=== PATIENT | female | born 1935 | race Caucasian/White ===

== ENCOUNTER → 2016-06-13 | Outpatient (CLI) | payer OTHER ==
[~2016-06-13] MED LIST: ACET-1256 PO; ACET-24 PO; ADVIN25/60 INH; ADVIN50050 INH; ALBUAER19 INH; ATR10 PO; ATR25 PO; ATRINS INH; CARB25TA PO; CARB25TA12 PO; CEFU500T16 PO; CLC100 PO; CYAN1SUB13 PO; EFFSR75 PO; FLV1 PO; FRRS300 PO; GFNSR600 PO; HYDR-3124 PO; LDXCR60 EXT; LOVA40TA3 PO; LOVA40TA4 PO; LPR25 PO; MELA3TAB PO; METO25TA56 PO; MONT1TAB3 PO; NRN100 PO; PANT40TA PO; PLV75 PO; RANITAB33 PO; ROPI0.5T15 PO; RQP1 PO; RQP25 PO; SENN-65 PO; SENN-91 PO; TRMCR130WC TOP; TYL325X PO; ULT50X PO; VENL37.593 PO; VNTHFA/IN INH; VTMD1000 PO; XPNINS1255 INH; [UNRECOGNIZED DRUG - OTHER] EXT
--- NOTE | 2016-06-14 08:23 | DIAGNOSTIC IMAGING REPORT ---
CT OF THE ABDOMEN AND PELVIS WITHOUT CONTRAST CLINICAL HISTORY: Hematuria. COMPARISON STUDY: CT of the abdomen and pelvis May 17, 2006 and renal ultrasound October 07, 2009 TECHNIQUE: Axial images of the abdomen and pelvis were obtained without IV contrast. Images were reviewed in the axial, sagittal, and coronal planes. FINDINGS: Visualized portions of the lower chest demonstrate mild groundglass opacities within the lingula and left lower lobe. No ureteral or bladder calculi are identified. A punctate calcification is noted within the midpole of the left kidney. There is no hydronephrosis or hydroureter. The sensitivity for detection of urothelial lesions is diminished on this unenhanced exam but none are identified. A 1.8 cm lesion within the midpole of the right kidney is suboptimally assessed on this unenhanced exam but measures water attenuation. This likely reflects a cyst. Unenhanced images of the liver, spleen, adrenal glands and pancreas are normal. There is no evidence for a bowel obstruction. This extensive left colon diverticulosis without evidence of acute diverticulitis. There is no lymphadenopathy. Incidental note is made of moderate dextroscoliosis of the lumbar spine. There are no suspicious osseous lesions. IMPRESSION: 1. No ureteral calculi or hydronephrosis. Punctate left renal calcification could reflect a nonobstructing calculus or vascular calcification. 2. Suspected right renal cyst. No urothelial lesions identified although sensitivity diminished on this unenhanced exam. 3. Mild ground glass opacities within the left lower lobe and lingula which may reflect atelectasis, scarring or infectious process. Electronically signed by: Burton Damon M.D. 06/14/2016 8:22 AM
== END | disposition home or self-care (01) ==
LOC: C.CTS 14:00
PROVIDERS: ATTEND Nurse Practitioner Adult Health
DX: R31.9 Hematuria, unspecified (principal)

== ENCOUNTER 2016-07-17 12:22 | Emergency (ER) | payer OTHER ==
[~2016-07-17] VITALS: Ht 157.5 cm; Wt 59.7 kg
[~2016-07-17 12:22] MED LIST changes: -ACET-1256 PO; -ACET-24 PO; -ADVIN25/60 INH; -ATR10 PO; -ATRINS INH; -CARB25TA12 PO; -CEFU500T16 PO; -CLC100 PO; -CYAN1SUB13 PO; -EFFSR75 PO; -FLV1 PO; -FRRS300 PO; -GFNSR600 PO; -HYDR-3124 PO; -LDXCR60 EXT; -LOVA40TA3 PO; -LPR25 PO; -METO25TA56 PO; -NRN100 PO; -PLV75 PO; -RANITAB33 PO; -ROPI0.5T15 PO; -RQP1 PO; -RQP25 PO; -SENN-65 PO; -SENN-91 PO; -TRMCR130WC TOP; -TYL325X PO; -ULT50X PO; -VNTHFA/IN INH; -VTMD1000 PO; -XPNINS1255 INH; -[UNRECOGNIZED DRUG - OTHER] EXT
[2016-07-17 12:32] VITALS: TEMP 36.8; Ht 157.5 cm; Wt 59.7 kg
--- NOTE | 2016-07-17 13:56 | DIAGNOSTIC IMAGING REPORT ---
PELVIS 1 OR 2 VIEW ROUTINE CLINICAL HISTORY: AP PELVIS, L HIP PAIN COMPARISON: None. DISCUSSION: The bones and joint spaces appear intact. There is no evidence of fracture, dislocation or bony disease. There is no evidence for soft tissue swelling. IMPRESSION: Negative study. Electronically signed by: Terry Chavis M.D. 07/17/2016 1:55 PM Dictated Date/Time: 07/17/2016 1:55 PM
--- NOTE | 2016-07-17 13:57 | DIAGNOSTIC IMAGING REPORT ---
LEFT FEMUR 2 VIEWS ROUTINE CLINICAL HISTORY: L HIP/THIGH PAIN trauma COMPARISON: None. DISCUSSION: The bones and joint spaces appear intact. There is no evidence of fracture, dislocation or bony disease. There is no evidence for soft tissue swelling. IMPRESSION: Negative study. Electronically signed by: Terry Chavis M.D. 07/17/2016 1:56 PM Dictated Date/Time: 07/17/2016 1:55 PM
--- NOTE | 2016-07-17 14:40 | DIAGNOSTIC IMAGING REPORT ---
CT OF THE LEFT HIP CT DOSE: 313.35 mGy.cm HISTORY: Trauma LEFT HIP/PELVIS, INABILITY TO AMBULATE AFTER A FALL TECHNIQUE: Multiaxial CT images of the left hip were performed and reformatted in the sagittal and coronal plane without the use of contrast. COMPARISON: None. FINDINGS: No evidence for fracture by CT criteria. Cortical margins are intact. There is moderate degenerative change of the left hip. Left pubic ring is intact. There are findings of a soft tissue contusion lateral to left hip primarily involving the subcutaneous fat. IMPRESSION: 1. No evidence for fracture. 2. Moderate degenerative change. 3. Soft tissue contusion lateral to the left hip Electronically signed by: Terry Chavis M.D. 07/17/2016 2:39 PM Dictated Date/Time: 07/17/2016 2:37 PM
--- NOTE | 2016-07-17 14:59 | EMERGENCY ROOM VISIT NOTE ---
ED Visit Note First contact with patient: 12:57 Patient was seen by our PA/ASSEM[employer]. I was involved in the patient's care and did evaluate the patient myself. I was involved in the care throughout the ER stay. The patient complains of hip pain, plain films and CT scan are negative for fracture. A contusion was noted. The patient was felt stable for discharge. She will be seeing her doctor in follow-up as an outpatient.
[2016-07-17 15:09] VITALS: BP 102/68; PULSE 94; O2SAT 98
--- NOTE | 2016-07-17 15:12 | EMERGENCY ROOM VISIT NOTE ---
History First contact with patient: 12:30 Chief Complaint: HIP PAIN Stated Complaint: LEFT SIDE PAIN, L HIP PAIN, FALL 5 DAYS AGO History of Present Illness Patient is an 81-year-old white female who presents to emergency department for evaluation of left hip and buttock pain after a fall 4 days ago. Patient states that she got up out of her recliner overnight and tripped over some furniture and fell landing on her left side. She lives with her daughter and son-in-law, but they were unaware of the fall. The patient was able to get up on her own and took care of herself that evening. Family members were made aware of the fall the following day. The patient seemed fine otherwise and was able to ambulate and get dressed and get around the home. Patient's daughter noted bruising on the left hip 2 days ago which has progressively increased. Patient also notes progressively worsening left hip and buttock pain since yesterday evening. She sat in her recliner for most of the day. She used some Tylenol intermittently for discomfort. She has been using a cane to ambulate or has been holding onto the furniture. She denies that she struck her head and that there was any loss of consciousness. She denies any other injuries including shoulder, rib or back pain. She denies any neck pain. While she is laying in the bed, she has no pain. When she tries to ambulate, she rates her discomfort a 10/10. Review of Systems Review of systems as per HPI. All other systems reviewed were negative. 10 systems reviewed. Past Medical/Surgical History Medical Problems: (1) Asthma, Unspecified (2) Depressive Disorder Nec (3) Diab Leticia Wo Compl, Type Ii Or Unspec Type, Not Uncntrld (4) Esophageal Reflux (5) Hyperlipidemia Nec/Nos (6) Hypertension Nos (7) Parkinson disease Electronic medical records are reviewed and summarized as above/below. See Problem List. Family History Gallbladder disease Heart disease Hypertension Kidney disease Kidney stones Social History Smoking Status: Never Smoker Alcohol Use: none Housing Status: lives with family Occupation Status: retired Current/Historical Medications Scheduled Albuterol Hfa (Ventolin Hfa), 2-4 PUFFS INH Q6H Carbidopa-Levodopa (Sinemet Cr 25MG/100MG), 1 TAB PO QID Fluticasone Prop/Salmeterol (Advair Diskus 500-50 Mcg/Dose), 1 PUFF INH BID Hydroxyzine Hcl (Atarax), 25 MG PO TID Lovastatin (Mevacor), 40 MG PO DAILY Montelukast Sodium (Singulair), 10 MG PO DAILY Pantoprazole (Protonix), 40 MG PO BID Venlafaxine Hcl (Venlafaxine Extended Rel), 37.5 MG PO QPM Scheduled PRN Melatonin (Melatonin), 3 MG PO HS PRN for Sleep Allergies Coded Allergies: Diphenhydramine (Verified Allergy, Severe, SWELLING IN THROAT, 07/17/16) Iodine (Verified Allergy, Severe, THROAT SWELLING, 07/17/16) Shellfish (Verified Allergy, Severe, ANAPHYLAXIS AND FULL BODY HIVES, ) Ciprofloxacin (Verified Allergy, Intermediate, HIVES FULL BODY, 07/17/16) Quinine (Verified Allergy, Mild, HIVES, 07/17/16) Latex1 -Allergic Contact Dermititis (Verified Allergy, Unknown, DERMATITIS , 07/17/16) Triprolidine (Verified Allergy, Unknown, HIVES, ASTHMA EXACERBATION, ) Physical Exam Vital Signs Date Time Temp Pulse Resp B/P Pulse Ox O2 Delivery O2 Flow Rate FiO2 07/17/16 15:09 94 16 102/68 98 07/17/16 14:30 100 12 99/79 95 07/17/16 12:32 36.8 106 16 147/81 97 Room Air Physical Exam GENERAL: Patient is a pleasant, elderly 81-year-old white female who is awake and alert and in no acute distress. HEENT: Head - normocephalic and atraumatic. Pupils are equal, round, and reactive to light. Extraocular eye muscles are intact and sclera are anicteric. Ears - bilaterally patent canals with no evidence of hemotympanum. Nose - moist nasal mucosa without evidence of trauma or discharge. Mouth - moist buccal mucosa with no trauma to the teeth or signs of malocclusion. Neck: The neck is supple and there is no pain to palpation over the posterior cervical spine and no obvious step-offs or deformities. There is no JVD or tracheal deviation. Chest: There are no signs of deformities, contusions or abrasions to the chest wall. There is no obvious crepitus or paradoxical chest rise. Heart: Regular rate, and regular rhythm. Lungs: Breath sounds equal and clear to auscultation without wheezes, rales, or rhonchi heard. Abdomen: Soft, completely nontender, nondistended, with good bowel sounds. There is no sign of trauma such as contusions, abrasions or penetrations. There are no palpable pulsatile masses or hepatosplenomegaly. There is no guarding, rigidity, or rebound noted. Pelvis: Stable to rock and compression. Extremities: Examination of the left hip and thigh show marked ecchymosis, and diffuse swelling. She has tenderness to palpation over the left groin, low left greater trochanter and then the left proximal femur. She has discomfort with logroll and extension and internal and external rotation of the hip. No obvious leg length discrepancies. No other obvious trauma, deformities, contusions, or edema. There are easily palpable peripheral pulses. Back: The entire thoracic, lumbar, and sacral spine were palpated. No discomfort over the thoracic spine and lumbar spine. There are no obvious step- offs or deformities noted. There are no obvious signs of trauma such as contusions abrasions penetrations noted to the back. Medical Decision & Procedures ER Provider Diagnostic Interpretation: CT OF THE LEFT HIP CT DOSE: 313.35 mGy.cm HISTORY: Trauma LEFT HIP/PELVIS, INABILITY TO AMBULATE AFTER A FALL TECHNIQUE: Multiaxial CT images of the left hip were performed and reformatted in the sagittal and coronal plane without the use of contrast. COMPARISON: None. FINDINGS: No evidence for fracture by CT criteria. Cortical margins are intact. There is moderate degenerative change of the left hip. Left pubic ring is intact. There are findings of a soft tissue contusion lateral to left hip primarily involving the subcutaneous fat. IMPRESSION: 1. No evidence for fracture. 2. Moderate degenerative change. 3. Soft tissue contusion lateral to the left hip LEFT FEMUR 2 VIEWS ROUTINE CLINICAL HISTORY: L HIP/THIGH PAIN trauma COMPARISON: None. DISCUSSION: The bones and joint spaces appear intact. There is no evidence of fracture, dislocation or bony disease. There is no evidence for soft tissue swelling. IMPRESSION: Negative study. PELVIS 1 OR 2 VIEW ROUTINE CLINICAL HISTORY: AP PELVIS, L HIP PAIN COMPARISON: None. DISCUSSION: The bones and joint spaces appear intact. There is no evidence of fracture, dislocation or bony disease. There is no evidence for soft tissue swelling. IMPRESSION: Negative study. ED Course The patient was seen and evaluated as above. She declined any medication for discomfort. Initially, left femur and AP pelvis x-rays were obtained, which showed arthritic changes, but no evidence for acute fracture. I was concerned given the patient's difficulty with ambulation that she could have a nondisplaced fracture that was not detected by plain radiographs and therefore did a CT of the left lower extremity which did not demonstrate any evidence for acute fracture. Moderate degenerative changes were noted on the left hip, and she does have findings consistent with a soft tissue contusion in the lateral left thigh. The patient was ambulated in the emergency department using a walker and did well. Radiographic findings were discussed with the patient and her family. She was reassured. She was encouraged to continue acetaminophen for discomfort on to use her walker or a cane for ambulation until her pain improves. She could also follow up with Dr. Cross if they do not feel that her symptoms are improving. Differential diagnoses included hip/femur/pelvic fracture, contusion, hip dislocation, among others. Medical Decision See ED Course. Impression Primary Impression: Contusion of left hip and thigh Additional Impression: Fall Departure Information Referrals Artemio Cleary M.D. (PCP) Patient Instructions My [facility] Additional Instructions Acetaminophen(Tylenol) may be used for fever or pain. Use 1000mg every six hours as needed. Avoid using more than 3000mg in a 24 hour period. This medication can be taken if you need to drive, work, or perform activities which may be dangerous when taking narcotic pain medication. Ice compresses for 20 minutes at a time four times daily for 2-3 days. Use your walker/cane as instructed. Rest and elevate your injury. Continue current medications. Return to the ER immediately for any numbness, tingling, severe pain, extreme swelling in the extremity or as needed. Follow up with Dr. Cleary as scheduled, and with Dr. Cross as needed. Problem Qualifiers Primary Impression: Contusion of left hip and thigh Encounter type: initial encounter Qualified Codes: S70.02XA - Contusion of left hip, initial encounter; S70.12XA - Contusion of left thigh, initial encounter Additional Impression: Fall Encounter type: initial encounter Qualified Codes: W19.XXXA - Unspecified fall, initial encounter
[2016-07-17] MEDS ORDERED: VNTHFA/IN INH (15:20)
[2016-07-17] MEDS ORDERED: HYDR-3124 PO (15:20)
[2016-07-31] MEDS ORDERED: LPR25 PO (09:34)
[2016-07-31] MEDS ORDERED: CARB25TA PO (09:34)
[2016-07-31] MEDS ORDERED: XPNINS1255 INH (09:34)
[2016-07-31] MEDS ORDERED: CEFU500T16 PO (09:34)
[2016-07-31] MEDS ORDERED: ATRINS INH (09:34)
[2016-07-31] MEDS ORDERED: FRRS300 PO (09:34)
[2016-07-31] MEDS ORDERED: RQP1 PO (09:34)
[2016-07-31] MEDS ORDERED: TYL325X PO (09:34)
[2016-07-31] MEDS ORDERED: VENL37.593 PO (09:34)
[2016-07-31] MEDS ORDERED: GFNSR600 PO (09:35)
[2016-07-31] MEDS ORDERED: LDXCR60 EXT (09:35)
[2016-07-31] MEDS ORDERED: VTMD1000 PO (09:35)
[2016-07-31] MEDS ORDERED: RQP25 PO (09:35)
[2016-07-31] MEDS ORDERED: [UNRECOGNIZED DRUG - OTHER] EXT (09:35)
[2016-07-31] MEDS ORDERED: CLC100 PO (09:35)
[2016-07-31] MEDS ORDERED: LOVA40TA3 PO (09:51)
[2016-09-11] MEDS ORDERED: PLV75 PO (13:01)
[2016-12-03] MEDS ORDERED: CYAN1SUB13 PO (14:12)
[2016-12-03] MEDS ORDERED: METO25TA56 PO (14:12)
[2016-12-03] MEDS ORDERED: NRN100 PO (14:12)
[2016-12-03] MEDS ORDERED: ULT50X PO (14:12)
[2016-12-03] MEDS ORDERED: FLV1 PO (14:12)
[2016-12-03] MEDS ORDERED: ACET-24 PO (14:12)
== END 2016-07-17 15:27 | disposition home or self-care (01) ==
LOC: EDBD 12:22 → C.EDA 12:23
DX: S70.02XA Contusion of left hip, initial encounter (principal); S70.12XA Contusion of left thigh, initial encounter; W01.0XXA Fall on same level from slipping, tripping and stumbling without subsequent striking against object, initial encounter; I10 Essential (primary) hypertension; E11.9 Type 2 diabetes mellitus without complications; E78.5 Hyperlipidemia, unspecified; G20 Parkinson's disease; K21.9 Gastro-esophageal reflux disease without esophagitis; F32.9 Major depressive disorder, single episode, unspecified; J45.909 Unspecified asthma, uncomplicated; Z79.899 Other long term (current) drug therapy; Z88.2 Allergy status to sulfonamides; Z88.8 Allergy status to other drugs, medicaments and biological substances; Z91.018 Allergy to other foods; Z91.040 Latex allergy status; Z79.82 Long term (current) use of aspirin; Z82.49 Family history of ischemic heart disease and other diseases of the circulatory system; Z84.1 Family history of disorders of kidney and ureter

== ENCOUNTER → 2016-07-20 | Outpatient (CLI) | payer OTHER ==
[~2016-07-20] MED LIST changes: +ACET-1256 PO; +ACET-24 PO; +ADVIN25/60 INH; -ALBUAER19 INH; +ATR10 PO; -ATR25 PO; +ATRINS INH; +CARB25TA12 PO; +CEFU500T16 PO; +CLC100 PO; +CYAN1SUB13 PO; +EFFSR75 PO; +FLV1 PO; +FRRS300 PO; +GFNSR600 PO; +HYDR-3124 PO; +LDXCR60 EXT; +LOVA40TA3 PO; +LPR25 PO; +METO25TA56 PO; +NRN100 PO; +PLV75 PO; +RANITAB33 PO; +ROPI0.5T15 PO; +RQP1 PO; +RQP25 PO; +SENN-65 PO; +SENN-91 PO; +TRMCR130WC TOP; +TYL325X PO; +ULT50X PO; +VNTHFA/IN INH; +VTMD1000 PO; +XPNINS1255 INH; +[UNRECOGNIZED DRUG - OTHER] EXT
[2016-07-20 17:01] LABS: BASO % 0.3 %; BASO ABS # 0.02 K/uL (0-0.2); COMPLETE YES; HEMATOCRIT 34.2 % (37-47); IG% 0.5 %; LYMPH % 21.7 %; LYMPH ABS # 1.37 K/uL (1.2-3.4); MEAN CELL VOLUME 94.5 fL (80-100); MEAN CORPUSCULAR HGB CONC 33.9 g/dl (32-36); MEAN PLATELET VOLUME 9.3 fL (7.4-10.4); MONO % 8.6 %; NEUT % 61.9 %; PLATELET COUNT 317 K/uL (130-400); RED BLOOD COUNT 3.62 M/uL (4.2-5.4)
[2016-07-20 17:07] LABS: BLOOD UREA NITROGEN 19 mg/dl (7-18); BUN/CREATININE RATIO 19.2 (10-20); CALCIUM 8.2 mg/dl (8.5-10.1); CARBON DIOXIDE 31 mmol/L (21-32); CHLORIDE 105 mmol/L (98-107); CREATININE 0.97 mg/dl (0.60-1.20); GLUCOSE 105 mg/dl (70-99); POTASSIUM 4.1 mmol/L (3.5-5.1); SODIUM 142 mmol/L (136-145)
[2016-07-21 05:48] LABS: ESTIMATED AVERAGE GLUCOSE 126 mg/dl; HA1C FLAG Normal (Normal)
== END | disposition home or self-care (01) ==
LOC: C.LABBC 13:42
PROVIDERS: ATTEND Internal Medicine Geriatric Medicine
DX: E11.9 Type 2 diabetes mellitus without complications (principal); D64.9 Anemia, unspecified

== ENCOUNTER 2016-07-26 10:51 | Inpatient (IN) | payer OTHER ==
[~2016-07-26] VITALS: Ht 157.5 cm; Wt 58.7 kg
[~2016-07-26 10:51] MED LIST changes: -ACET-1256 PO; -ACET-24 PO; -ADVIN25/60 INH; -ATR10 PO; -ATRINS INH; -CARB25TA12 PO; -CEFU500T16 PO; -CLC100 PO; -CYAN1SUB13 PO; -EFFSR75 PO; -FLV1 PO; -FRRS300 PO; -GFNSR600 PO; -LDXCR60 EXT; -LOVA40TA3 PO; -LPR25 PO; -METO25TA56 PO; -NRN100 PO; -PLV75 PO; -RANITAB33 PO; -ROPI0.5T15 PO; -RQP1 PO; -RQP25 PO; -SENN-65 PO; -SENN-91 PO; -TRMCR130WC TOP; -TYL325X PO; -ULT50X PO; -VTMD1000 PO; -XPNINS1255 INH; -[UNRECOGNIZED DRUG - OTHER] EXT
[2016-07-26] MEDS ORDERED: SODIUM CHLORIDE 0.9% 1000ML 1,000 ML IV ONE (11:36)
[2016-07-26 11:47] LABS: BASO % 0.1 %; BASO ABS # 0.01 K/uL (0-0.2); COMPLETE YES; EOS % 2.9 %; HEMATOCRIT 38.5 % (37-47); IG% 0.5 %; LYMPH % 16.1 %; LYMPH ABS # 1.22 K/uL (1.2-3.4); MEAN CELL VOLUME 95.3 fL (80-100); MEAN CORPUSCULAR HEMOGLOBIN 32.7 pg (25-34); MEAN CORPUSCULAR HGB CONC 34.3 g/dl (32-36); MEAN PLATELET VOLUME 8.8 fL (7.4-10.4); MONO % 11.4 %; PLATELET COUNT 380 K/uL (130-400); RED BLOOD COUNT 4.04 M/uL (4.2-5.4); WHITE BLOOD COUNT 7.56 K/uL (4.8-10.8)
[2016-07-26 11:55] LABS: ALT/SGPT 6 U/L (12-78); BLOOD UREA NITROGEN 20 mg/dl (7-18); BUN/CREATININE RATIO 19.7 (10-20); CALCIUM 9.1 mg/dl (8.5-10.1); CARBON DIOXIDE 25 mmol/L (21-32); CHLORIDE 101 mmol/L (98-107); GLUCOSE 106 mg/dl (70-99); MAGNESIUM 2.4 mg/dl (1.8-2.4); POTASSIUM 4.2 mmol/L (3.5-5.1); SODIUM 136 mmol/L (136-145)
[2016-07-26 12:00] LABS: VEN BLOOD GAS BASE EXCESS 3.3 mmol/L; VENOUS BLOOD GAS PCO2 39 mmHg (38.0-50.0); VENOUS BLOOD GAS PO2 28 mmHg
[2016-07-26 12:01] LABS: VEN BLD GAS O2 SATURATION < 60.0 %
[2016-07-26 12:02] LABS: PARTIAL THROMBOPLASTIN RATIO 1.2; PROTHROMBIN TIME (PATIENT) 10.7 SECONDS (9.0-12.0)
[2016-07-26 12:03] LABS: ALB/GLOB RATIO 0.8 (0.9-2); ALKALINE PHOSPHATASE 107 U/L (45-117); AST/SGOT 11 U/L (15-37); PHOSPHORUS 3.4 mg/dl (2.5-4.9)
--- NOTE | 2016-07-26 12:20 | DIAGNOSTIC IMAGING REPORT ---
SINGLE VIEW CHEST CLINICAL HISTORY: Sepsis. FINDINGS: An AP, portable, upright chest radiograph is compared to study dated 02/08/2015. The heart is top normal for projection. There is atherosclerotic calcification of the thoracic aorta. The pulmonary vascular is noncongested. Chronic interstitial thickening is similar to previous. No airspace consolidation, large pleural effusion, or pneumothorax is seen. The skeletal structures are osteopenic. Degenerative change and mild scoliosis are noted in the thoracic spine. Advanced arthritic change is seen in the right shoulder. IMPRESSION: No acute cardiopulmonary abnormality. Electronically signed by: Abebe Vyas M.D. 07/26/2016 12:19 PM Dictated Date/Time: 07/26/2016 12:18 PM
--- NOTE | 2016-07-26 12:20 | DIAGNOSTIC IMAGING REPORT ---
LEFT KNEE 1 OR 2 VIEWS ROUTINE CLINICAL HISTORY: fall trauma. Pain. COMPARISON: None. DISCUSSION: Generalized osteopenia. No evidence for fracture. Cortical margins are intact. General change medial joint compartment. There is no evidence for soft tissue swelling. IMPRESSION: Degenerative change. Osteopenia. No acute bony abnormality. Degenerative change medial joint compartment Electronically signed by: Terry Chavis M.D. 07/26/2016 12:19 PM Dictated Date/Time: 07/26/2016 12:18 PM
--- NOTE | 2016-07-26 12:21 | DIAGNOSTIC IMAGING REPORT ---
PELVIS 1 OR 2 VIEW ROUTINE CLINICAL HISTORY: fall trauma. Pain. COMPARISON: 07/17/2016 DISCUSSION: The bones and joint spaces appear intact. There is no evidence of fracture, dislocation or bony disease. Moderate degenerative change. No evidence for acetabular protrusion. IMPRESSION: Moderate degenerative change. No acute bony abnormality. No change from the prior study. Electronically signed by: Terry Chavis M.D. 07/26/2016 12:20 PM Dictated Date/Time: 07/26/2016 12:19 PM
[2016-07-26 12:24] LABS: URINE APPEARANCE CLEAR (CLEAR); URINE BILIRUBIN NEG (NEG); URINE COLOR YELLOW; URINE NITRITE NEG (NEG); URINE PH 6.5 (4.5-7.5); URINE SPECIFIC GRAVITY 1.012 (1.000-1.030); UROBILINOGEN NEG (NEG); ZZURINE CULT IF INDIC CATH NO
[2016-07-26 12:25] LABS: MANUAL MICROSCOPIC REQUIRED? NO; REVIEW REQ? NO
--- NOTE | 2016-07-26 12:55 | DIAGNOSTIC IMAGING REPORT ---
HEAD CT NONCONTRAST CT DOSE: 537.48 mGy.cm HISTORY: Mental status change confusion TECHNIQUE: Multiaxial CT images of the head were performed without the use of intravenous contrast. Comparison: 02/08/2015 Findings: The paranasal sinuses and mastoid air cells are clear. Chronic small vessel change. Ventricular system is midline. No acute intracranial hemorrhage. No midline shift. Impression: Chronic and age-related change. No acute process. Electronically signed by: Terry Chavis M.D. 07/26/2016 12:54 PM Dictated Date/Time: 07/26/2016 12:45 PM
--- NOTE | 2016-07-26 13:46 | EMERGENCY ROOM VISIT NOTE ---
History Report prepared by Diana: Susana Subramanian Under the Supervision of: Dr. Juan Jose Kiser D.O. First contact with patient: 11:23 Chief Complaint: ILLNESS Stated Complaint: MALAISE History of Present Illness The patient is an 81 year old female who presents to the Emergency Room with complaints of a persistent illness that began over a week ago. She currently rates her discomfort as a 3/10 in severity. The patient's family states that two weeks ago the patient fell and had a lot of bruising to her extremities. They state that after the patient complained of left knee pain, the patient was evaluated in the emergency department. The patient's family notes that all of the patient's tests came back negative so she was sent home. They state that the patient was doing well for the past week, but states that Monday the patient took a turn for the worse. The family notes that the patient had been sitting in her chair most of the day Monday, and then when she wanted to get up , she had difficulty standing from her chair. They state that the patient had difficulty ambulating with her walker and states that the patient had pain to her knee. The family notes that the patient had drank fluids that day. They state that later Monday, the patient's ambulation was labored with her walker. The patient's family states that yesterday the patient felt well enough to stay at home alone, but states that the patient did not move much throughout the day , did not keep up on her fluid intake, and did not take her medications. The family notes that the patient seemed dehydrated and hypoglycemic, but state states that the patient's blood glucose was not checked. The patient denies any headache, neck pain, chest pain, abdominal pain, back pain, urinary symptoms , or diarrhea. The patient notes a productive cough, noting that she has brought up yellow sputum, but denies any hemoptysis. The patient's family notes that the patient has been using Tylenol for her knee pain. They state that the patient has a history of Parkinson's disease and asthma. The family also voices concern for the ability to care for the patient at home if she does not improve. Source of History: patient, family Onset: over a week ago Position: other (global) Symptom Intensity: 3/10 Quality: other (illness) Timing: other (persistent) Associated Symptoms: + cough (prodcutive), No abdominal pain, No back pain, No chest pain, No diarrhea, No headache, No neck pain, No urinary symptoms Note: Associated Symptoms: dehydration Review of Systems See HPI for pertinent positives & negatives. A total of 10 systems reviewed and were otherwise negative. Past Medical & Surgical Medical Problems: (1) Asthma, Unspecified (2) Depressive Disorder Nec (3) Diab Leticia Wo Compl, Type Ii Or Unspec Type, Not Uncntrld (4) Esophageal Reflux (5) Hyperlipidemia Nec/Nos (6) Hypertension Nos (7) Parkinson disease (8) Pneumonia Family History Gallbladder disease Heart disease Hypertension Kidney disease Kidney stones Social History Smoking Status: Never Smoker Alcohol Use: none Housing Status: lives with family Occupation Status: retired Current/Historical Medications Scheduled Albuterol Hfa (Ventolin Hfa), 2-4 PUFFS INH Q6H Carbidopa-Levodopa (Sinemet Cr 25MG/100MG), 1 TAB PO QID Fluticasone Prop/Salmeterol (Advair Diskus 500-50 Mcg/Dose), 1 PUFF INH BID Lovastatin (Mevacor), 40 MG PO DAILY Montelukast Sodium (Singulair), 10 MG PO DAILY Pantoprazole (Protonix), 40 MG PO BID Venlafaxine Hcl (Venlafaxine Extended Rel), 37.5 MG PO QPM Scheduled PRN Hydroxyzine Hcl (Atarax), 25 MG PO TID PRN for Anxiety/Agitation Melatonin (Melatonin), 3 MG PO HS PRN for Sleep Allergies Coded Allergies: Diphenhydramine (Verified Allergy, Severe, SWELLING IN THROAT, 07/26/16) Iodine (Verified Allergy, Severe, THROAT SWELLING, 07/26/16) Shellfish (Verified Allergy, Severe, ANAPHYLAXIS AND FULL BODY HIVES, 07/26) Ciprofloxacin (Verified Allergy, Intermediate, HIVES FULL BODY, 07/26/16) Quinine (Verified Allergy, Mild, HIVES, 07/26/16) Latex1 -Allergic Contact Dermititis (Verified Allergy, Unknown, DERMATITIS , 07/26/16) Triprolidine (Verified Allergy, Unknown, HIVES, ASTHMA EXACERBATION, ) Physical Exam Vital Signs Date Time Temp Pulse Resp B/P Pulse Ox O2 Delivery O2 Flow Rate FiO2 07/26/16 15:35 109 22 155/87 100 07/26/16 13:54 97 22 150/87 100 Room Air 07/26/16 12:15 102 20 128/72 100 Room Air 07/26/16 12:15 100 Room Air 07/26/16 11:06 37.0 110 20 128/72 100 Room Air Physical Exam GENERAL: Patient is listless, slow to answer questions, but does follow verbal commands. EYES: The conjunctivae are clear. The pupils are round and reactive. EARS, NOSE, MOUTH AND THROAT: The nose is without any evidence of any deformity. Mucous membranes are dry, tongue is midline NECK: The neck is nontender and supple. RESPIRATORY: Diminished breath sounds throughout. Scattered rhonchi and tachypnea noted. CARDIOVASCULAR: Tachycardic, but regular. No definite murmur noted to auscultation. GASTROINTESTINAL: The abdomen is soft. Bowel sounds are present in all quadrants. Abdomen is nontender MUSCULOSKELETAL/EXTREMITIES: Pain with range of motion of left knee, no deformity or crepitus noted. SKIN: No significant edema noted. Skin turgor was poor. NEUROLOGIC: Patient is oriented to person, place, and situation, but slow to answer questions. Medical Decision & Procedures ER Provider Diagnostic Interpretation: Radiology results as stated below per my review and radiologist interpretation: PELVIS 1 OR 2 VIEW ROUTINE CLINICAL HISTORY: fall trauma. Pain. COMPARISON: 07/17/2016 DISCUSSION: The bones and joint spaces appear intact. There is no evidence of fracture, dislocation or bony disease. Moderate degenerative change. No evidence for acetabular protrusion. IMPRESSION: Moderate degenerative change. No acute bony abnormality. No change from the prior study. Electronically signed by: Terry Chavis M.D. 07/26/2016 12:20 PM Dictated Date/Time: 07/26/2016 12:19 PM LEFT KNEE 1 OR 2 VIEWS ROUTINE CLINICAL HISTORY: fall trauma. Pain. COMPARISON: None. DISCUSSION: Generalized osteopenia. No evidence for fracture. Cortical margins are intact. General change medial joint compartment. There is no evidence for soft tissue swelling. IMPRESSION: Degenerative change. Osteopenia. No acute bony abnormality. Degenerative change medial joint compartment Electronically signed by: Terry Chavis M.D. 07/26/2016 12:19 PM Dictated Date/Time: 07/26/2016 12:18 PM SINGLE VIEW CHEST CLINICAL HISTORY: Sepsis. FINDINGS: An AP, portable, upright chest radiograph is compared to study dated 02/08/2015. The heart is top normal for projection. There is atherosclerotic calcification of the thoracic aorta. The pulmonary vascular is noncongested. Chronic interstitial thickening is similar to previous. No airspace consolidation, large pleural effusion, or pneumothorax is seen. The skeletal structures are osteopenic. Degenerative change and mild scoliosis are noted in the thoracic spine. Advanced arthritic change is seen in the right shoulder. IMPRESSION: No acute cardiopulmonary abnormality. Electronically signed by: Abebe Vyas M.D. 07/26/2016 12:19 PM Dictated Date/Time: 07/26/2016 12:[address] NON[address]AST CT DOSE: 537.48 mGy.cm HISTORY: Mental status change confusion TECHNIQUE: Multiaxial CT images of the head were performed without the use of intravenous contrast. Comparison: 02/08/2015 Findings: The paranasal sinuses and mastoid air cells are clear. Chronic small vessel change. Ventricular system is midline. No acute intracranial hemorrhage. No midline shift. Impression: Chronic and age-related change. No acute process. Electronically signed by: Terry Chavis M.D. 07/26/2016 12:54 PM Dictated Date/Time: 07/26/2016 12:45 PM Laboratory Results 07/26/16 11:10 Red Blood Count 4.04, Mean Corpuscular Volume 95.3, Mean Corpuscular Hemoglobin 32.7, Mean Corpuscular Hemoglobin Concent 34.3, Mean Platelet Volume 8.8, Neutrophils (%) (Auto) 69.0, Lymphocytes (%) (Auto) 16.1, Monocytes (%) (Auto) 11.4, Eosinophils (%) (Auto) 2.9, Basophils (%) (Auto) 0.1, Neutrophils # (Auto ) 5.21, Lymphocytes # (Auto) 1.22, Monocytes # (Auto) 0.86, Eosinophils # (Auto ) 0.22, Basophils # (Auto) 0.01 07/26/16 11:10 Test 07/26/16 11:10 07/26/16 11:36 07/26/16 11:54 07/26/16 12:14 White Blood Count 7.56 K/uL (4.8-10.8) Red Blood Count 4.04 M/uL (4.2-5.4) Hemoglobin 13.2 g/dL (12.0-16.0) Hematocrit 38.5 % (37-47) Mean Corpuscular Volume 95.3 fL (80-100) Mean Corpuscular Hemoglobin 32.7 pg (25-34) Mean Corpuscular Hemoglobin Concent 34.3 g/dl (32-36) Platelet Count 380 K/uL (130-400) Mean Platelet Volume 8.8 fL (7.4-10.4) Neutrophils (%) (Auto) 69.0 % Lymphocytes (%) (Auto) 16.1 % Monocytes (%) (Auto) 11.4 % Eosinophils (%) (Auto) 2.9 % Basophils (%) (Auto) 0.1 % Neutrophils # (Auto) 5.21 K/uL (1.4-6.5) Lymphocytes # (Auto) 1.22 K/uL (1.2-3.4) Monocytes # (Auto) 0.86 K/uL (0.11-0.59) Eosinophils # (Auto) 0.22 K/uL (0-0.5) Basophils # (Auto) 0.01 K/uL (0-0.2) RDW Standard Deviation 49.7 fL (36.4-46.3) RDW Coefficient of Variation 14.3 % (11.5-14.5) Immature Granulocyte % (Auto) 0.5 % Immature Granulocyte # (Auto) 0.04 K/uL (0.00-0.02) Erythrocyte Sedimentation Rate 54 mm/hr (0-21) Prothrombin Time 10.7 SECONDS (9.0-12.0) Prothromb Time International Ratio 1.0 (0.9-1.1) Activated Partial Thromboplast Time 30.2 SECONDS (21.0-31.0) Partial Thromboplastin Ratio 1.2 Anion Gap 10.0 mmol/L (3-11) Est Creatinine Clear Calc Drug Dose 34.9 ml/min Estimated GFR () 61.2 Estimated GFR (Non- 52.8 BUN/Creatinine Ratio 19.7 (10-20) Calcium Level 9.1 mg/dl (8.5-10.1) Phosphorus Level 3.4 mg/dl (2.5-4.9) Magnesium Level 2.4 mg/dl (1.8-2.4) Total Bilirubin 0.5 mg/dl (0.2-1) Aspartate Amino Transf (AST/SGOT) 11 U/L (15-37) Alanine Aminotransferase (ALT/SGPT) 6 U/L (12-78) Alkaline Phosphatase 107 U/L (45-117) Total Creatine Kinase 32 U/L (26-192) Creatine Kinase MB < 0.5 ng/ml (0.5-3.6) Creatine Kinase MB Ratio (0-3.0) Troponin I < 0.015 ng/ml (0-0.045) C-Reactive Protein 12.70 mg/dl (0-0.29) Pro-B-Type Natriuretic Peptide 1123 pg/ml (0-1800) Total Protein 7.4 gm/dl (6.4-8.2) Albumin 3.2 gm/dl (3.4-5.0) Globulin 4.2 gm/dl (2.5-4.0) Albumin/Globulin Ratio 0.8 (0.9-2) Lipase 114 U/L (73-393) Thyroid Stimulating Hormone (TSH) 1.750 uIu/ml (0.300-4.500) Free Thyroxine 1.16 ng/dl (0.80-1.60) Venous Blood pH 7.47 (7.36-7.41) Venous Blood Partial Pressure CO2 39 mmHg (38.0-50.0) Venous Blood Partial Pressure O2 28 mmHg Venous Blood HCO3 27 mmol/L Venous Blood Oxygen Saturation < 60.0 % Venous Blood Base Excess 3.3 mmol/L Bedside Lactic Acid Venous 0.87 mmol/L (0.90-1.70) Urine Color YELLOW Urine Appearance CLEAR (CLEAR) Urine pH 6.5 (4.5-7.5) Urine Specific [place] 1.012 (1.000-1.030) Urine Protein NEG (NEG) Urine Glucose (UA) NEG (NEG) Urine Ketones NEG (NEG) Urine Occult Blood NEG (NEG) Urine Nitrite NEG (NEG) Urine Bilirubin NEG (NEG) Urine Urobilinogen NEG (NEG) Urine Leukocyte Esterase NEG (NEG) Urine WBC (Auto) 1-5 /hpf (0-5) Urine RBC (Auto) 0-4 /hpf (0-4) Urine Hyaline Casts (Auto) 0 /lpf (0-5) Urine Epithelial Cells (Auto) 5-10 /lpf (0-5) Urine Bacteria (Auto) NEG (NEG) Laboratory results per my review. Medications Administered Medications (Trade) Dose Ordered Sig/Joceline Route Start Time Stop Time Status Last Admin Dose Admin Sodium Chloride (Nss 1000ml) 1,000 ml @ 999 mls/hr Q1H1M ONCE IV 07/26/16 11:36 07/26/16 12:36 DC 07/26/16 12:19 999 MLS/HR ECG Indication: other (illness) Rate (beats per minute): 107 Rhythm: sinus tachycardia Findings: PVC (frequent), other (LVH by voltage criteria, poor R wave progression) Comparison ECG Date: 02/08/15 Change: no significant change ED Course 1126: The patient was evaluated in room C7. A complete history and physical examination were performed. 1136: Ordered Sodium Chloride 1000 ml @ 999 mls/hr IV. 1500: I reevaluated the patient and she is resting. I discussed the exam findings with her and her family and I discussed the treatment plan. They all verbalized complete understanding and agreement. The patient will be evaluated for further treatment. 1511: I discussed the patients case [place] [facility] [place] is going to evaluate the patient for further treatment. Medical Decision Differential diagnosis: Etiologies such as metabolic, infection, hypo/hyperglycemia, electrolyte abnormalities, cardiac sources, intracerebral event, toxicologic, neurologic, as well as others were entertained. Nursing notes reviewed. Additional history is obtained from the patient's family members. The patient is an 81-year-old female who presented to the emergency department for an evaluation of inability to ambulate. The patient had a fall recently and is been decompensating ever since. The patient had a fall onto her left side and suffered a significant left leg injury. The patient was awake and alert but appeared to be somewhat disconnected. Her family members were also concerned she may have had a stroke because of her inability to ambulate as well as her mental status has been fluctuating. I discussed the patient's laboratory and radiographic studies with the family members. The patient was treated with IV fluids in the emergency department. Blood cultures were obtained because the family was concerned about the patient's cough which was productive. No definite infiltrate was noted. No definite urinary tract infection was noted. I discussed his case with the emergency department child support case officer. They tried to make a referral for inpatient rehabilitation for this patient but she was unable to be accepted at this time. For this reason and the patient's overall safety I discussed his case with the on-call [facility] hospitalist as well. They have agreed to evaluate the patient in emergency department for further management and disposition. Consults Time Called: [phone] Consulting Physician: ADAM Camara Returned Call: [phone] I discussed the patients case with ADAM Camara. He is going to evaluate the patient for further treatment. Impression Primary Impression: Weakness Additional Impressions: Fall Left knee sprain Inability to ambulate due to left knee TIA (transient ischemic attack) Scribe Attestation The scribe's documentation has been prepared under my direction and personally reviewed by me in its entirety. I confirm that the note above accurately reflects all work, treatment, procedures, and medical decision making performed by me. Departure Information Dispostion Being Evaluated By Hospitalist Referrals Artemio Cleary M.D. (PCP) Problem Qualifiers
[2016-07-26] MEDS ORDERED: ACETAMINOPHEN 325 MG TAB PO PRN (16:30)
[2016-07-26] MEDS ORDERED: BISACODYL 10 MG SUPP PR PRN (16:30)
[2016-07-26] MEDS ORDERED: LORAZEPAM 2 MG/ML 1 ML VIAL IV PRN (16:30)
[2016-07-26] MEDS ORDERED: ONDANSETRON INJ 2 MG/ML 2 ML VIAL IV PRN (16:30)
[2016-07-26] MEDS ORDERED: MoRPHine SULFATE 2 MG/ML CARP IV PRN (16:30)
[2016-07-26] MEDS ORDERED: MAGNESIUM HYDROXIDE SUSP 30 ML UDC PO PRN (16:30)
[2016-07-26] MEDS ORDERED: NON-FORMULARY MEDICATION (Melatonin 3 MG) PO PRN (16:30)
[2016-07-26] MEDS ORDERED: PROMETHAZINE HCL INJ 12.5 MG in SODIUM CHLORIDE 0.9% 50ML 50 ML IV PRN (16:30)
[2016-07-26] MEDS ORDERED: ZOLPIDEM TARTRATE 5 MG TAB PO PRN (16:30)
--- NOTE | 2016-07-26 16:54 | Medical Student: [facility] ---
Med Student History & Physical Date & Time of Service: Jul 26, 2016 at 16:16 Chief Complaint: Malaise Primary Care Physician: Artemio Cleary M.D. History of Present Illness Source: patient, family 81 y/o female who returns today with increasing weakness and decreased mental status that has been getting worse over the past three days. The patient initially presented to the ED two weeks ago after a fall in which she injured her left hip and left knee. The patient was discharged from the ED after no acute fractures were found. Over the next week, the patient gradually improved in terms of her pain and ability to get around in her walker. The patient continues to have left knee pain. About four days ago, the patient began to have a cough with productive yellow sputum. She states that the cough has been steady and has not gotten any better or worse. The patient has a history of asthma and denies any fevers, shortness of breath, chest pain, or palpitations. Two days ago, per the patients daughter, the patient stayed in bed or her chair for most of the day and was hesitant to get up and move around using her walker. This was a change from her previous behavior. Although the patient is legally blind, she was previously confident in getting around the house with her walker. Yesterday, while the patient's daughter was at work, the patient only got out of bed one time all day. She did not drink fluids throughout the day and did not take her medications. Her daughter states that the patient appeared dehydrated when she got home from work. Additionally, the patient was staring out into space and having difficulty finding words, which was all different from her baseline. The patient continued to act weak with decreased mental awareness until she was brought to the ED today. She currently states that she still feels somewhat lightheaded. She also states that she feels "unsure of myself". The patient denies abdominal pain, constipation, diarrhea, nausea, vomiting, recent changes in vision, and extremity weakness. The patient has a history of Parkinson's and states that her symptoms have been stable. She has had no recent medication changes and continues to take Carvidopa /Levidopa. The patient currently feels better after getting some IV fluids. Past Medical/Surgical History Medical Problems: (1) Contusion of left hip and thigh 2. Parkinson's Disease 3. Asthma 4. Depressive disorder 5. Borderline diabetes mellitus 6. reflux 7. High cholesterol Surgical History: 1. Hysterectomy 2. Carpal Tunnel Family History gallbladder, heart disease, HTN, kidney stones Social History Smoking Status: Never Smoker Alcohol Use: none Housing status: lives with family (lives with [facility]) Occupational Status: retired Allergies Coded Allergies: Diphenhydramine (Verified Allergy, Severe, SWELLING IN THROAT, 07/26/16) Iodine (Verified Allergy, Severe, THROAT SWELLING, 07/26/16) Shellfish (Verified Allergy, Severe, ANAPHYLAXIS AND FULL BODY HIVES, 07/26) Ciprofloxacin (Verified Allergy, Intermediate, HIVES FULL BODY, 07/26/16) Quinine (Verified Allergy, Mild, HIVES, 07/26/16) Latex1 -Allergic Contact Dermititis (Verified Allergy, Unknown, DERMATITIS , 07/26/16) Triprolidine (Verified Allergy, Unknown, HIVES, ASTHMA EXACERBATION, ) Medications Albuterol Hfa (Ventolin Hfa), 2-4 PUFFS INH Q6H Carbidopa-Levodopa (Sinemet Cr 25MG/100MG), 1 TAB PO QID Fluticasone Prop/Salmeterol (Advair Diskus 500-50 Mcg/Dose), 1 PUFF INH BID Hydroxyzine Hcl (Atarax), 25 MG PO TID PRN for Anxiety/Agitation Lovastatin (Mevacor), 40 MG PO DAILY Melatonin (Melatonin), 3 MG PO HS PRN for Sleep Montelukast Sodium (Singulair), 10 MG PO DAILY Pantoprazole (Protonix), 40 MG PO BID Venlafaxine Hcl (Venlafaxine Extended Rel), 37.5 MG PO QPM Review of Systems Constitutional: + chills, + weakness, No fever Eyes: No discharge, No redness, No worsening of vision ENT: No hearing loss, No sore throat Respiratory: + cough, + sputum (yellow), No dyspnea at rest, No dyspnea on exertion, No hemoptysis, No shortness of breath, No wheezing Cardiovascular: No chest pain, No edema, No palpitations Abdomen: No constipation, No diarrhea, No nausea, No pain, No vomiting Musculoskeletal: + joint pain (left knee pain) Neurologic: No memory loss, No numbness/tingling, No paralysis, No weakness Psychiatric: No anxiety, No depression symptoms Integumentary: + rash (chronic atopic dermatitis), No color change, No new/ changing skin lesions Physical Exam Vital Signs (24 Hours) Date Time Temp Pulse Resp B/P Pulse Ox O2 Delivery O2 Flow Rate FiO2 07/26/16 15:35 109 22 155/87 100 07/26/16 13:54 97 22 150/87 100 Room Air 07/26/16 12:15 102 20 128/72 100 Room Air 07/26/16 12:15 100 Room Air 07/26/16 11:06 37.0 110 20 128/72 100 Room Air General Appearance: WD/WN, no apparent distress Head: normocephalic, atraumatic Eyes: normal inspection, EOMI ENT: normal ENT inspection, hearing grossly normal Respiratory/Chest: chest non-tender, lungs clear, normal breath sounds, no respiratory distress, no accessory muscle use Cardiovascular: no edema, no gallop, no murmur, normal peripheral pulses, + tachycardia Abdomen/GI: normal bowel sounds, non tender, soft, no organomegaly Back: normal inspection Extremities/Musculoskelatal: normal inspection, no pedal edema 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, no motor/sensory deficits, alert, normal mood/affect, oriented x 3 Skin: + rash (diffuse dry eczematous rash) Diagnostics Laboratory Results Results Past 24 Hours Test 07/26/16 11:10 07/26/16 11:36 07/26/16 11:54 07/26/16 12:14 Range/Units White Blood Count 7.56 4.8-10.8 K/uL Red Blood Count 4.04 4.2-5.4 M/uL Hemoglobin 13.2 12.0-16.0 g/dL Hematocrit 38.5 37-47 % Mean Corpuscular Volume 95.3 80-100 fL Mean Corpuscular Hemoglobin 32.7 25-34 pg Mean Corpuscular Hemoglobin Concent 34.3 32-36 g/dl Platelet Count 380 130-400 K/uL Mean Platelet Volume 8.8 7.4-10.4 fL Neutrophils (%) (Auto) 69.0 % Lymphocytes (%) (Auto) 16.1 % Monocytes (%) (Auto) 11.4 % Eosinophils (%) (Auto) 2.9 % Basophils (%) (Auto) 0.1 % Neutrophils # (Auto) 5.21 1.4-6.5 K/uL Lymphocytes # (Auto) 1.22 1.2-3.4 K/uL Monocytes # (Auto) 0.86 0.11-0.59 K/uL Eosinophils # (Auto) 0.22 0-0.5 K/uL Basophils # (Auto) 0.01 0-0.2 K/uL RDW Standard Deviation 49.7 36.4-46.3 fL RDW Coefficient of Variation 14.3 11.5-14.5 % Immature Granulocyte % (Auto) 0.5 % Immature Granulocyte # (Auto) 0.04 0.00-0.02 K/uL Erythrocyte Sedimentation Rate 54 0-21 mm/hr Prothrombin Time 10.7 9.0-12.0 SECONDS Prothromb Time International Ratio 1.0 0.9-1.1 Activated Partial Thromboplast Time 30.2 21.0-31.0 SECONDS Partial Thromboplastin Ratio 1.2 Sodium Level 136 136-145 mmol/L Potassium Level 4.2 3.5-5.1 mmol/L Chloride Level 101 98-107 mmol/L Carbon Dioxide Level 25 21-32 mmol/L Anion Gap 10.0 3-11 mmol/L Blood Urea Nitrogen 20 7-18 mg/dl Creatinine 1.00 0.60-1.20 mg/dl Est Creatinine Clear Calc Drug Dose 34.9 ml/min Estimated GFR () 61.2 Estimated GFR (Non- 52.8 BUN/Creatinine Ratio 19.7 10-20 Random Glucose 106 70-99 mg/dl Calcium Level 9.1 8.5-10.1 mg/dl Phosphorus Level 3.4 2.5-4.9 mg/dl Magnesium Level 2.4 1.8-2.4 mg/dl Total Bilirubin 0.5 0.2-1 mg/dl Aspartate Amino Transf (AST/SGOT) 11 15-37 U/L Alanine Aminotransferase (ALT/SGPT) 6 12-78 U/L Alkaline Phosphatase 107 45-117 U/L Total Creatine Kinase 32 26-192 U/L Creatine Kinase MB < 0.5 0.5-3.6 ng/ml Creatine Kinase MB Ratio 0-3.0 Troponin I < 0.015 0-0.045 ng/ml C-Reactive Protein 12.70 0-0.29 mg/dl Pro-B-Type Natriuretic Peptide 1123 0-1800 pg/ml Total Protein 7.4 6.4-8.2 gm/dl Albumin 3.2 3.4-5.0 gm/dl Globulin 4.2 2.5-4.0 gm/dl Albumin/Globulin Ratio 0.8 0.9-2 Lipase 114 73-393 U/L Thyroid Stimulating Hormone (TSH) 1.750 0.300-4.500 uIu/ml Free Thyroxine 1.16 0.80-1.60 ng/dl Venous Blood pH 7.47 7.36-7.41 Venous Blood Partial Pressure CO2 39 38.0-50.0 mmHg Venous Blood Partial Pressure O2 28 mmHg Venous Blood HCO3 27 mmol/L Venous Blood Oxygen Saturation < 60.0 % Venous Blood Base Excess 3.3 mmol/L Bedside Lactic Acid Venous 0.87 0.90-1.70 mmol/L Urine Color YELLOW Urine Appearance CLEAR CLEAR Urine pH 6.5 4.5-7.5 Urine Specific [place] 1.012 1.000-1.030 Urine Protein NEG NEG Urine Glucose (UA) NEG NEG Urine Ketones NEG NEG Urine Occult Blood NEG NEG Urine Nitrite NEG NEG Urine Bilirubin NEG NEG Urine Urobilinogen NEG NEG Urine Leukocyte Esterase NEG NEG Urine WBC (Auto) 1-5 0-5 /hpf Urine RBC (Auto) 0-4 0-4 /hpf Urine Hyaline Casts (Auto) 0 0-5 /lpf Urine Epithelial Cells (Auto) 5-10 0-5 /lpf Urine Bacteria (Auto) NEG NEG Microbiology Results 07/26/16 Blood Culture, Received Pending 07/26/16 Blood Culture, Received Pending Diagnostic Radiology CT HEAD NONCONTRAST Impression: Chronic and age-related change. No acute process. CXR IMPRESSION: No acute cardiopulmonary abnormality. LEFT KNEE XRAY IMPRESSION: Degenerative change. Osteopenia. No acute bony abnormality. Degenerative change medial joint compartment PELVIS XRAY IMPRESSION: Moderate degenerative change. No acute bony abnormality. No change from the prior study. EKG Compared to previous ecg, non specific t wave abnormality has now become inverted T waves Impression Assessment and Plan 81y/o female with recent history of cough with productive yellow sputum for past four days and increasing weakness and difficulty ambulating for the past 2- 3 days. The patient does not have a white count, her UA was negative, and her imaging studies returned with no acute abnormalities. However, her CRP and ESR were elevated. Blood cultures are pending. Given the patient's worsening status and no source or diagnosis for this decline, will consider getting a Chest CT to better rule out pulmonary process and a Brain MRI to rule out neurologic process. Worsening functional status/Cough with productive sputum- Patient is having worsening difficulty ambulating and getting around on her own. Additionally, she has had a change in her mental functioning. The family is also concerned with her difficulty ambulating and their ability for her to remain at home. The patient will be admitted and then will work towards potential placement into rehabilitation facility. Chest CT was ordered to look for potential pulmonary process. PCR for influenza A and B was ordered. Administer Ceftriaxone IV Q24 hours, Azithromycin IV daily LIN. Administer Methylprednisolone IV Q8Hr LIN and guaifenesin 600mg PO Q12 LIN. Continue to monitor labs. Blood cultures pending. Parkinson's Disease- Administer Carbidopa/Levodopa 25/100mg 1 tab PO QID LIN. Asthma- Administer Levalbuterol/Ipratropium INH Q6Hr LIN. Depressive Disorder- Administer Venlafaxine 37.5mg PO QPM. Diabetes Mellitus (borderline)- Continue to monitor blood sugar. Reflux- Administer Pantoprazole 40mg PO BID. High cholesterol- Administer Lovastatin 40mg PO daily.
--- NOTE | 2016-07-26 18:00 | DIAGNOSTIC IMAGING REPORT ---
CT OF THE CHEST WITHOUT IV CONTRAST CLINICAL HISTORY: Productive cough. COMPARISON STUDY: Chest radiograph July 26, 2016 and February 08, 2015 TECHNIQUE: Axial images of the chest were obtained without IV contrast. Images were reviewed in the axial, sagittal, and coronal planes. IV contrast was not administered for this examination. FINDINGS: No enlarged axillary, mediastinal or hilar lymph nodes are present. 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 Note is made of a 5 cm water attenuation lesion overlying the anterior right acromioclavicular joint. This is partially imaged on this study. The size of the heart is at the upper limits of normal. There is no pericardial effusion. A small hiatal hernia is present. There is extensive coronary artery calcification. No pneumothorax or pleural effusion is present. The central airways are patent. There are mild groundglass opacities within the lingula and left lower lobe. Bony thorax and upper abdomen are unremarkable on this unenhanced exam IMPRESSION: 1. Mild groundglass opacity within the lingula and left lower lobe. Appearance favors atelectasis. An infectious process could appear similar but is considered less likely. 2. No thoracic lymphadenopathy. 3. 5 cm water attenuation abnormality overlying the anterior aspect of the right acromioclavicular joint. This is partially imaged on this unenhanced exam. This likely reflects a cyst and may be related to arthritis of the right shoulder. This could be correlated with clinical evidence of stability. Electronically signed by: Burton Damon M.D. 07/26/2016 5:58 PM Dictated Date/Time: 07/26/2016 5:50 PM
[2016-07-26 18:42] VITALS: BP 103/68; PULSE 100; TEMP 36.9; O2SAT 96; Ht 157.5 cm; Wt 58.7 kg
[2016-07-26 19:00] LABS: INFLUENZA A PCR Neg for Influ A (NEG); INFLUENZA B PCR Neg for Influ B (NEG)
[2016-07-26] MEDS: CARBIDOPA/LEVODOPA 25/100MG EXT REL TAB PO SCH ×2 (19:27→21:16)
[2016-07-26] MEDS ORDERED: LEVALBUTEROL 1.25MG/0.5ML NEB INH PRN (20:45)
[2016-07-26] MEDS ORDERED: IPRATROPIUM BROMIDE NEB SOLN 0.02% 2.5 ML VIAL INH PRN (20:45)
[2016-07-26] MEDS ORDERED: LEVALBUTEROL/IPRATROPIUM NEB INH SCH (21:00)
[2016-07-26] MEDS: GUAIFENESIN 600 MG TABCR PO SCH (21:14)
[2016-07-26] MEDS: LOVASTATIN 20 MG TAB PO SCH (21:14)
[2016-07-26] MEDS: VENLAFAXINE HCL XR 37.5 MG CAPXR PO SCH (21:15)
[2016-07-26] MEDS: MONTELUKAST SOD 10 MG TAB PO SCH (21:15)
[2016-07-26] MEDS: PANTOprazole SOD 40 MG TAB PO SCH (21:15)
[2016-07-26] MEDS: METHYLPREDNISOLONE IV 30 MG in SYRINGE 0 ML IV SCH (21:18)
[2016-07-26] MEDS: DOCUSATE SODIUM 100 MG CAP PO SCH (21:18)
[2016-07-26] MEDS: CEFTRIAXONE SOD INJ 1 GM in DEXTROSE 5% ADD-VANTAGE 50ML 50 ML IV SCH (21:19)
[2016-07-26 21:26] VITALS: PULSE 105; O2SAT 92
[2016-07-26] MEDS: LEVALBUTEROL 1.25MG/0.5ML NEB INH SCH (21:26)
[2016-07-26] MEDS: IPRATROPIUM BROMIDE NEB SOLN 0.02% 2.5 ML VIAL INH SCH (21:26)
[2016-07-26] MEDS: AZITHROMYCIN IV 500 MG in DEXTROSE 5% 250ML 250 ML IV SCH (22:05)
[2016-07-26 23:25] VITALS: BP 116/74; PULSE 102; TEMP 37.3; O2SAT 97
[2016-07-27] VITALS (9 sets, daily range): BP systolic 135–156; BP diastolic 79–90; PULSE 102–114; TEMP 36.5–36.9; O2SAT 93–98
[2016-07-27] MEDS: IPRATROPIUM BROMIDE NEB SOLN 0.02% 2.5 ML VIAL INH SCH ×4 (01:45→19:58)
[2016-07-27] MEDS: LEVALBUTEROL 1.25MG/0.5ML NEB INH SCH ×4 (01:45→19:58)
--- NOTE | 2016-07-27 03:24 | History and Physical ---
History & Physical Date & Time of Service: Jul 27, 2016 at 03:07 Chief Complaint: Pneumonia; Weakness Primary Care Physician: Artemio Cleary M.D. History of Present Illness Source: patient The patient is an 81-year-old female who presents to the emergency department with symptoms of fatigue, difficulty in relating with walker, pain in her right knee and hip, history of fall approximately 2 weeks ago, with concerns of patient and family about ability stay alone at home. She does note a cough productive of yellow sputum. She does have history of Parkinson's disease which also affects her ambulation. The family is concerned about their ability to take care of her at home if she does not improve. Past Medical/Surgical History Medical Problems: (1) Asthma, Unspecified Status: Chronic (2) Depressive Disorder Nec Status: Chronic (3) Diab Leticia Wo Compl, Type Ii Or Unspec Type, Not Uncntrld Status: Chronic (4) Esophageal Reflux Status: Chronic (5) Hyperlipidemia Nec/Nos Status: Chronic (6) Hypertension Nos Status: Chronic (7) Parkinson disease Status: Chronic Family History Gallbladder disease Heart disease Hypertension Kidney disease Kidney stones Social History Smoking Status: Never Smoker Alcohol Use: none Drug Use: none Marital Status: Housing status: lives with family (lives with [facility]) Occupational Status: retired Multi-Drug Resistant Organisms History of MDRO: No Allergies Coded Allergies: Diphenhydramine (Verified Allergy, Severe, SWELLING IN THROAT, 07/26/16) Iodine (Verified Allergy, Severe, THROAT SWELLING, 07/26/16) Shellfish (Verified Allergy, Severe, ANAPHYLAXIS AND FULL BODY HIVES, 07/26) Ciprofloxacin (Verified Allergy, Intermediate, HIVES FULL BODY, 07/26/16) Quinine (Verified Allergy, Mild, HIVES, 07/26/16) Latex1 -Allergic Contact Dermititis (Verified Allergy, Unknown, DERMATITIS , 07/26/16) Triprolidine (Verified Allergy, Unknown, HIVES, ASTHMA EXACERBATION, ) Home Medications Scheduled Albuterol Hfa (Ventolin Hfa), 2-4 PUFFS INH Q6H Carbidopa-Levodopa (Sinemet Cr 25MG/100MG), 1 TAB PO QID Fluticasone Prop/Salmeterol (Advair Diskus 500-50 Mcg/Dose), 1 PUFF INH BID Lovastatin (Mevacor), 40 MG PO DAILY Montelukast Sodium (Singulair), 10 MG PO DAILY Pantoprazole (Protonix), 40 MG PO BID Venlafaxine Hcl (Venlafaxine Extended Rel), 37.5 MG PO QPM Scheduled PRN Hydroxyzine Hcl (Atarax), 25 MG PO TID PRN for Anxiety/Agitation Melatonin (Melatonin), 3 MG PO HS PRN for Sleep Review of Systems The patient denies chest pain, palpitations, shortness of breath, cough, lower extremity swelling, vision change, hearing change, sore throat, fevers, chills, sweats, weight change, nausea, vomiting, abdominal pain, pelvic pain, blood in urine or stool, dysuria, urinary frequency or urgency, headache, rash, abnormal bruising or bleeding, focal weakness, night sweats, or allergy symptoms. The review of systems is otherwise negative other than for that already noted above, and at least 10 systems have been reviewed. Physical Exam Vital Signs Date Time Temp Pulse Resp B/P Pulse Ox O2 Delivery O2 Flow Rate FiO2 07/27/16 00:00 Room Air 07/26/16 23:25 37.3 102 2 116/74 97 Room Air 07/26/16 21:26 105 16 92 Room Air 07/26/16 21:26 105 16 92 Room Air 07/26/16 20:00 Room Air 07/26/16 18:42 36.9 100 18 103/68 96 Room Air 07/26/16 17:20 109 22 155/87 100 07/26/16 15:35 109 22 155/87 100 07/26/16 13:54 97 22 150/87 100 Room Air 07/26/16 12:15 102 20 128/72 100 Room Air 07/26/16 12:15 100 Room Air 07/26/16 11:06 37.0 110 20 128/72 100 Room Air The patient is awake, well-developed and adequately nourished, alert and oriented 3, normocephalic and atraumatic, lying in bed and in no acute distress. HEENT--PERRL, EOMI, mucous membranes and oropharynx dry. Neck--supple, no JVD or bruits, thyroid normal, trachea midline, no adenopathy. Heart--normal S1 and S2, no extra beats, no murmurs, rubs or gallops. Lungs--wheezes on right side all ramírez, diminished sounds on the left, no respiratory distress, no accessory muscle use. Abdomen--normal bowel sounds and soft, nontender and nondistended, no hernias or masses, no organomegaly. Extremities--no cyanosis, clubbing or edema. There are good distal pulses b/l. Dermatologic--normal skin turgor, normal color, warm and dry, no abnormal lymph nodes, no rash. Neurologic--cranial nerves II through XII grossly intact Psychiatric--normal affect. Diagnostics Laboratory Results Results Past 24 Hours Test 07/26/16 11:10 07/26/16 11:36 07/26/16 11:54 07/26/16 12:14 Range/Units White Blood Count 7.56 4.8-10.8 K/uL Red Blood Count 4.04 4.2-5.4 M/uL Hemoglobin 13.2 12.0-16.0 g/dL Hematocrit 38.5 37-47 % Mean Corpuscular Volume 95.3 80-100 fL Mean Corpuscular Hemoglobin 32.7 25-34 pg Mean Corpuscular Hemoglobin Concent 34.3 32-36 g/dl Platelet Count 380 130-400 K/uL Mean Platelet Volume 8.8 7.4-10.4 fL Neutrophils (%) (Auto) 69.0 % Lymphocytes (%) (Auto) 16.1 % Monocytes (%) (Auto) 11.4 % Eosinophils (%) (Auto) 2.9 % Basophils (%) (Auto) 0.1 % Neutrophils # (Auto) 5.21 1.4-6.5 K/uL Lymphocytes # (Auto) 1.22 1.2-3.4 K/uL Monocytes # (Auto) 0.86 0.11-0.59 K/uL Eosinophils # (Auto) 0.22 0-0.5 K/uL Basophils # (Auto) 0.01 0-0.2 K/uL RDW Standard Deviation 49.7 36.4-46.3 fL RDW Coefficient of Variation 14.3 11.5-14.5 % Immature Granulocyte % (Auto) 0.5 % Immature Granulocyte # (Auto) 0.04 0.00-0.02 K/uL Erythrocyte Sedimentation Rate 54 0-21 mm/hr Prothrombin Time 10.7 9.0-12.0 SECONDS Prothromb Time International Ratio 1.0 0.9-1.1 Activated Partial Thromboplast Time 30.2 21.0-31.0 SECONDS Partial Thromboplastin Ratio 1.2 Sodium Level 136 136-145 mmol/L Potassium Level 4.2 3.5-5.1 mmol/L Chloride Level 101 98-107 mmol/L Carbon Dioxide Level 25 21-32 mmol/L Anion Gap 10.0 3-11 mmol/L Blood Urea Nitrogen 20 7-18 mg/dl Creatinine 1.00 0.60-1.20 mg/dl Est Creatinine Clear Calc Drug Dose 34.9 ml/min Estimated GFR () 61.2 Estimated GFR (Non- 52.8 BUN/Creatinine Ratio 19.7 10-20 Random Glucose 106 70-99 mg/dl Calcium Level 9.1 8.5-10.1 mg/dl Phosphorus Level 3.4 2.5-4.9 mg/dl Magnesium Level 2.4 1.8-2.4 mg/dl Total Bilirubin 0.5 0.2-1 mg/dl Aspartate Amino Transf (AST/SGOT) 11 15-37 U/L Alanine Aminotransferase (ALT/SGPT) 6 12-78 U/L Alkaline Phosphatase 107 45-117 U/L Total Creatine Kinase 32 26-192 U/L Creatine Kinase MB < 0.5 0.5-3.6 ng/ml Creatine Kinase MB Ratio 0-3.0 Troponin I < 0.015 0-0.045 ng/ml C-Reactive Protein 12.70 0-0.29 mg/dl Pro-B-Type Natriuretic Peptide 1123 0-1800 pg/ml Total Protein 7.4 6.4-8.2 gm/dl Albumin 3.2 3.4-5.0 gm/dl Globulin 4.2 2.5-4.0 gm/dl Albumin/Globulin Ratio 0.8 0.9-2 Lipase 114 73-393 U/L Thyroid Stimulating Hormone (TSH) 1.750 0.300-4.500 uIu/ml Free Thyroxine 1.16 0.80-1.60 ng/dl Venous Blood pH 7.47 7.36-7.41 Venous Blood Partial Pressure CO2 39 38.0-50.0 mmHg Venous Blood Partial Pressure O2 28 mmHg Venous Blood HCO3 27 mmol/L Venous Blood Oxygen Saturation < 60.0 % Venous Blood Base Excess 3.3 mmol/L Bedside Lactic Acid Venous 0.87 0.90-1.70 mmol/L Urine Color YELLOW Urine Appearance CLEAR CLEAR Urine pH 6.5 4.5-7.5 Urine Specific [place] 1.012 1.000-1.030 Urine Protein NEG NEG Urine Glucose (UA) NEG NEG Urine Ketones NEG NEG Urine Occult Blood NEG NEG Urine Nitrite NEG NEG Urine Bilirubin NEG NEG Urine Urobilinogen NEG NEG Urine Leukocyte Esterase NEG NEG Urine WBC (Auto) 1-5 0-5 /hpf Urine RBC (Auto) 0-4 0-4 /hpf Urine Hyaline Casts (Auto) 0 0-5 /lpf Urine Epithelial Cells (Auto) 5-10 0-5 /lpf Urine Bacteria (Auto) NEG NEG Test 07/26/16 17:15 Range/Units Influenza Type A (RT-PCR) Neg for Influ A NEG Influenza Type A Antigen Neg for Influ A NEG Influenza Type B Antigen Neg for Influ B NEG Influenza Type B (RT-PCR) Neg for Influ B NEG Microbiology Results 07/26/16 Blood Culture, Received Pending 07/26/16 Blood Culture, Received Pending Diagnostic Radiology Patient Name: EDELMIRA ALMAZAN Unit Number: [id number] Dictated: 07/26/161218 Transcribed: 07/26/161218 MS Printed Date/Time: [~ rep prt dt]/[~ rep prt tm] [~ rep ct labl] - [~ rep ct ivnm] [facility] [place] [address] Dictated: 07/26/161218 Transcribed: 07/26/16 121 MS Printed Date/Time: [~ rep prt dt]/[~ rep prt tm] [~ rep ct labl] - [~ rep ct ivnm] [~ rep ct add3]] PELVIS 1 OR 2 VIEW ROUTINE CLINICAL HISTORY: fall trauma. Pain. COMPARISON: 07/17/2016 DISCUSSION: The bones and joint spaces appear intact. There is no evidence of fracture, dislocation or bony disease. Moderate degenerative change. No evidence for acetabular protrusion. IMPRESSION: Moderate degenerative change. No acute bony abnormality. No change from the prior study. Electronically signed by: Terry Chavis M.D. 07/26/2016 12:20 PM Dictated Date/Time: 07/26/2016 12:19 PM The status of this report is Signed. Draft = Not yet reviewed or approved by Radiologist. Signed = Reviewed and approved by Radiologist. <AttendingPhy></AttendingPhy> <FamilyPhy>Artemio Cleary M.D.</FamilyPhy> < PrimaryPhy>Artemio Cleary M.D.</PrimaryPhy> <UnitNumber>[id number]</UnitNumber > <VisitNumber>[id number]</VisitNumber> <PatientName>EDELMIRA ALMAZAN</PatientName > <DateOfBirth>1935</DateOfBirth> <Location>C[facility]C</Location> <ServiceDate> 07/26/16</ServiceDate> <MNE>ESINDI</MNE> <OrderingPhy>Juan Jose Kiser D.O.</ OrderingPhy> <OrderingPhyMNE>f rep ord dr shultz</OrderingPhyMNE> <DictatingPhyMNE> f rep dict dr shultz</DictatingPhyMNE> <CCListMNE>f rep ct mne</CCListMNE> < AdmittingPhyMNE>f pt admit dr shultz</AdmittingPhyMNE> <AttendingPhyMNE>f pt attend dr shultz</AttendingPhyMNE> <ConsultingPhyMNE>f pt consult dr shultz</ConsultingPhyMNE> <FamilyPhyMNE>f pt fam dr shultz</FamilyPhyMNE> <OtherPhyMNE>f pt other dr shultz</OtherPhyMNE> < PrimaryPhyMNE>f pt prim care dr shultz</PrimaryPhyMNE> <ReferringPhyMNE>f pt referring dr shultz</ReferringPhyMNE> Patient Name: EDELMIRA ALMAZAN Unit Number: [id number] Dictated: 07/26/161217 Transcribed: 07/26/161217 MS Printed Date/Time: [~ rep prt dt]/[~ rep prt tm] [~ rep ct labl] - [~ rep ct ivnm] [facility] Radiology Department [place] [id number] Dictated: 07/26/161217 Transcribed: 07/26/16 1218 MS Printed Date/Time: [~ rep prt dt]/[~ rep prt tm] [~ rep ct labl] - [~ rep ct ivnm] CLINICAL HISTORY: fall trauma. Pain. COMPARISON: None. DISCUSSION: Generalized osteopenia. No evidence for fracture. Cortical margins are intact. General change medial joint compartment. There is no evidence for soft tissue swelling. IMPRESSION: Degenerative change. Osteopenia. No acute bony abnormality. Degenerative change medial joint compartment Electronically signed by: Terry Chavis M.D. 07/26/2016 12:19 PM Dictated Date/Time: 07/26/2016 12:18 PM The status of this report is Signed. Draft = Not yet reviewed or approved by Radiologist. Signed = Reviewed and approved by Radiologist. <AttendingPhy></AttendingPhy> <FamilyPhy>Artemio Cleary M.D.</FamilyPhy> < PrimaryPhy>Artemio Cleary M.D.</PrimaryPhy> <UnitNumber>[id number]</UnitNumber > <VisitNumber>[id number]</VisitNumber> <PatientName>EDELMIRA ALMAZAN</PatientName > <DateOfBirth>1935</DateOfBirth> <Location>C.EDC</Location> <ServiceDate> 07/26/16</ServiceDate> <MNE>ESINDI</MNE> <OrderingPhy>Juan Jose Kiser D.O.</ OrderingPhy> <OrderingPhyMNE>f rep ord dr shultz</OrderingPhyMNE> <DictatingPhyMNE> f rep dict dr shultz</DictatingPhyMNE> <CCListMNE>f rep ct mne</CCListMNE> < AdmittingPhyMNE>f pt admit dr shultz</AdmittingPhyMNE> <AttendingPhyMNE>f pt attend dr shultz</AttendingPhyMNE> <ConsultingPhyMNE>f pt consult dr shultz</ConsultingPhyMNE> <FamilyPhyMNE>f pt fam dr shultz</FamilyPhyMNE> <OtherPhyMNE>f pt other dr shultz</OtherPhyMNE> < PrimaryPhyMNE>f pt prim care dr shultz</PrimaryPhyMNE> <ReferringPhyMNE>f pt referring dr shultz</ReferringPhyMNE> Patient Name: EDELMIRA ALMAZAN Unit Number: [id number] Dictated: 07/26/161217 Transcribed: 07/26/161217 EV Printed Date/Time: [~ rep prt dt]/[~ rep prt tm] [~ rep ct labl] - [~ rep ct ivnm] [facility] [place] [address] Dictated: 07/26/161217 Transcribed: 07/26/161217 EV Printed Date/Time: [~ rep prt dt]/[~ rep prt tm] [~ rep ct labl] - [~ rep ct ivnm] SINGLE VIEW CHEST CLINICAL HISTORY: Sepsis. FINDINGS: An AP, portable, upright chest radiograph is compared to study dated 02/08/2015. The heart is top normal for projection. There is atherosclerotic calcification of the thoracic aorta. The pulmonary vascular is noncongested. Chronic interstitial thickening is similar to previous. No airspace consolidation, large pleural effusion, or pneumothorax is seen. The skeletal structures are osteopenic. Degenerative change and mild scoliosis are noted in the thoracic spine. Advanced arthritic change is seen in the right shoulder. IMPRESSION: No acute cardiopulmonary abnormality. Electronically signed by: Abebe Vyas M.D. 07/26/2016 12:19 PM Dictated Date/Time: 07/26/2016 12:18 PM The status of this report is Signed. Draft = Not yet reviewed or approved by Radiologist. Signed = Reviewed and approved by Radiologist. <AttendingPhy></AttendingPhy> <FamilyPhy>Artemio Cleary M.D.</FamilyPhy> < PrimaryPhy>Artemio Cleary M.D.</PrimaryPhy> <UnitNumber>[id number]</UnitNumber > <VisitNumber>[id number]</VisitNumber> <PatientName>EDELMIRA ALMAZAN</PatientName > <DateOfBirth>1935</DateOfBirth> <Location>C.EDC</Location> <ServiceDate> 07/26/16</ServiceDate> <MNE>ESINDI</MNE> <OrderingPhy>Juan Jose Kiser D.O.</ OrderingPhy> <OrderingPhyMNE>f rep ord dr shultz</OrderingPhyMNE> <DictatingPhyMNE> f rep dict dr shultz</DictatingPhyMNE> <CCListMNE>f rep ct mne</CCListMNE> < AdmittingPhyMNE>f pt admit dr shultz</AdmittingPhyMNE> <AttendingPhyMNE>f pt attend dr shultz</AttendingPhyMNE> <ConsultingPhyMNE>f pt consult dr shultz</ConsultingPhyMNE> <FamilyPhyMNE>f pt fam dr shultz</FamilyPhyMNE> <OtherPhyMNE>f pt other dr shultz</OtherPhyMNE> < PrimaryPhyMNE>f pt prim care dr shultz</PrimaryPhyMNE> <ReferringPhyMNE>f pt referring dr shultz</ReferringPhyMNE> Patient Name: EDELMIRA ALMAZAN Unit Number: [id number] Dictated: 07/26/161244 Transcribed: 07/26/16 1245 MS Printed Date/Time: [~ rep prt dt]/[~ rep prt tm] [~ rep ct labl] - [~ rep ct ivnm] [facility] [place] [address] Dictated: 07/26/161244 Transcribed: 07/26/16 1245 MS Printed Date/Time: [~ rep prt dt]/[~ rep prt tm] [~ rep ct labl] - [~ rep ct ivnm] HEAD CT NONCONTRAST CT DOSE: 537.48 mGy.cm HISTORY: Mental status change confusion TECHNIQUE: Multiaxial CT images of the head were performed without the use of intravenous contrast. Comparison: 02/08/2015 Findings: The paranasal sinuses and mastoid air cells are clear. Chronic small vessel change. Ventricular system is midline. No acute intracranial hemorrhage. No midline shift. Impression: Chronic and age-related change. No acute process. Electronically signed by: Terry Chavis M.D. 07/26/2016 12:54 PM Dictated Date/Time: 07/26/2016 12:45 PM The status of this report is Signed. Draft = Not yet reviewed or approved by Radiologist. Signed = Reviewed and approved by Radiologist. <AttendingPhy></AttendingPhy> <FamilyPhy>Artemio Cleary M.D.</FamilyPhy> < PrimaryPhy>Artemio Cleary M.D.</PrimaryPhy> <UnitNumber>[id number]</UnitNumber > <VisitNumber>[id number]</VisitNumber> <PatientName>EDELMIRA ALMAZAN</PatientName > <DateOfBirth>1935</DateOfBirth> <Location>[facility]</Location> <ServiceDate> 07/26/16</ServiceDate> <MNE>ESINDI</MNE> <OrderingPhy>Juan Jose Kiser D.O.</ OrderingPhy> <OrderingPhyMNE>f rep ord dr shultz</OrderingPhyMNE> <DictatingPhyMNE> f rep dict dr shultz</DictatingPhyMNE> <CCListMNE>f rep ct mne</CCListMNE> < AdmittingPhyMNE>f pt admit dr shultz</AdmittingPhyMNE> <AttendingPhyMNE>f pt attend dr shultz</AttendingPhyMNE> <ConsultingPhyMNE>f pt consult dr shultz</ConsultingPhyMNE> <FamilyPhyMNE>f pt fam dr shultz</FamilyPhyMNE> <OtherPhyMNE>f pt other dr shultz</OtherPhyMNE> < PrimaryPhyMNE>f pt prim care dr shultz</PrimaryPhyMNE> <ReferringPhyMNE>f pt referring dr shultz</ReferringPhyMNE> Patient Name: EDELMIRA ALMAZAN Unit Number: [id number] Dictated: 07/26/161749 Transcribed: 07/26/161749 KAVITA Printed Date/Time: [~ rep prt dt]/[~ rep prt tm] [~ rep ct labl] - [~ rep ct ivnm] [facility] [place] [address] Dictated: 07/26/161749 Transcribed: 07/26/161749 KAVITA Printed Date/Time: [~ rep prt dt]/[~ rep prt tm] [~ rep ct labl] - [~ rep ct ivnm] CT OF THE CHEST WITHOUT IV CONTRAST CLINICAL HISTORY: Productive cough. COMPARISON STUDY: Chest radiograph July 26, 2016 and February 08, 2015 TECHNIQUE: Axial images of the chest were obtained without IV contrast. Images were reviewed in the axial, sagittal, and coronal planes. IV contrast was not administered for this examination. FINDINGS: No enlarged axillary, mediastinal or hilar lymph nodes are present. 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 Note is made of a 5 cm water attenuation lesion overlying the anterior right acromioclavicular joint. This is partially imaged on this study. The size of the heart is at the upper limits of normal. There is no pericardial effusion. A small hiatal hernia is present. There is extensive coronary artery calcification. No pneumothorax or pleural effusion is present. The central airways are patent. There are mild groundglass opacities within the lingula and left lower lobe. Bony thorax and upper abdomen are unremarkable on this unenhanced exam IMPRESSION: 1. Mild groundglass opacity within the lingula and left lower lobe. Appearance favors atelectasis. An infectious process could appear similar but is considered less likely. 2. No thoracic lymphadenopathy. 3. 5 cm water attenuation abnormality overlying the anterior aspect of the right acromioclavicular joint. This is partially imaged on this unenhanced exam. This likely reflects a cyst and may be related to arthritis of the right shoulder. This could be correlated with clinical evidence of stability. Electronically signed by: Burton Damon M.D. 07/26/2016 5:58 PM Dictated Date/Time: 07/26/2016 5:50 PM The status of this report is Signed. Draft = Not yet reviewed or approved by Radiologist. Signed = Reviewed and approved by Radiologist. <AttendingPhy>Augustine Doll M.D.</AttendingPhy> <FamilyPhy>Artemio Cleary M.D.</FamilyPhy> <PrimaryPhy>Artemio Cleary M.D.</PrimaryPhy> <UnitNumber> [id number]</UnitNumber> <VisitNumber>[id number]</VisitNumber> <PatientName> EDELMIRA ALMAZAN</PatientName> <DateOfBirth>1935</DateOfBirth> <Location>C.4E< /Location> <ServiceDate>07/26/16</ServiceDate> <MNE>ESINDI</MNE> <OrderingPhy> Augustine Doll M.D.</OrderingPhy> <OrderingPhyMNE>f rep ord dr shultz</ OrderingPhyMNE> <DictatingPhyMNE>f rep dict dr shultz</DictatingPhyMNE> <CCListMNE> f rep ct [place]</CCListMNE> <AdmittingPhyMNE>f pt admit dr shultz</AdmittingPhyMNE> < AttendingPhyMNE>f pt attend dr shultz</AttendingPhyMNE> <ConsultingPhyMNE>f pt consult dr shultz</ConsultingPhyMNE> <FamilyPhyMNE>f pt fam dr shultz</FamilyPhyMNE> <OtherPhyMNE>f pt other dr shultz</OtherPhyMNE> < PrimaryPhyMNE>f pt prim care dr shultz</PrimaryPhyMNE> <ReferringPhyMNE>f pt referring dr shultz</ReferringPhyMNE> EKG EKG shows sinus tach at 107 with left axis deviation, left ventricular hypertrophy, old inferior infarct, ST-T changes in lateral chest leads. Impression Assessment and Plan The patient with nonspecific complaints with generalized weakness, a fall a few weeks ago, remarks of a cough productive yellow sputum, but no suggestion of chest pain or shortness of breath. She'll be admitted, placed on ceftriaxone 1 g IV daily, azithromycin 500 mg IV daily, Solu-Medrol 30 mg IV every 8 hours, guaifenesin extended release 600 mg by mouth twice a day and Xopenex with Atrovent nebulizer to use every 6 hours while awake and every 2 hours when necessary. Continue montelukast sodium 10 mg by mouth daily. Hold Ventolin HFA and Advair discus. Hypertension/nonspecific EKG changes likely supply demand mismatch--we'll check another set of cardiac enzymes. Parkinson's--continue carbidopa levodopa 25/100, 1 tablet by mouth 4 times a day. Hypercholesterolemia--continue Mevacor 40 mg by mouth daily. GERD--continue pantoprazole 40 mg by mouth twice a day. Depression--continue venlafaxine ER visit and 0.5 g by mouth every afternoon. Advanced Directives Existing Advance Directive: Yes Existing Living Will: Yes Existing Power of Kiln Car Unloader: Yes Resuscitation Status FULL RESUSCITATION VTE Prophylaxis VTE Risk Assessment Done? Y/N: Yes Risk Level: Moderate Given or contraindicated: SCD's
[2016-07-27 04:35] LABS: CKMB/CK RATIO 2.1 (0-3.0)
[2016-07-27] MEDS: METHYLPREDNISOLONE IV 30 MG in SYRINGE 0 ML IV SCH ×3 (05:18→20:04)
[2016-07-27 06:09] LABS: COMPLETE YES; EOS % 0.3 %; HEMATOCRIT 35.8 % (37-47); IG% 0.8 %; LYMPH % 13.6 %; LYMPH ABS # 0.52 K/uL (1.2-3.4); MEAN CORPUSCULAR HEMOGLOBIN 31.8 pg (25-34); MEAN CORPUSCULAR HGB CONC 33.5 g/dl (32-36); MEAN PLATELET VOLUME 8.7 fL (7.4-10.4); MONO % 3.1 %; NEUT % 82.2 %; PLATELET COUNT 353 K/uL (130-400); RED BLOOD COUNT 3.77 M/uL (4.2-5.4); WHITE BLOOD COUNT 3.81 K/uL (4.8-10.8)
[2016-07-27 06:45] LABS: BUN/CREATININE RATIO 21.8 (10-20); CALCIUM 8.8 mg/dl (8.5-10.1); CREATININE 0.91 mg/dl (0.60-1.20); MAGNESIUM 2.3 mg/dl (1.8-2.4); POTASSIUM 4.5 mmol/L (3.5-5.1)
[2016-07-27] MEDS ORDERED: ALBUTEROL HFA 8 GM INHALER INH SCH (08:00)
[2016-07-27] MEDS: DOCUSATE SODIUM 100 MG CAP PO SCH ×2 (08:27→20:03)
[2016-07-27] MEDS: GUAIFENESIN 600 MG TABCR PO SCH ×2 (08:28→20:04)
[2016-07-27] MEDS: CARBIDOPA/LEVODOPA 25/100MG EXT REL TAB PO SCH ×4 (08:28→20:03)
[2016-07-27] MEDS: PANTOprazole SOD 40 MG TAB PO SCH ×2 (08:28→20:03)
[2016-07-27] MEDS: FLUTICASONE/SALMETEROL (ADVAIR) 500/50 INH 14 PUFF INH SCH ×2 (10:08→20:02)
--- NOTE | 2016-07-27 11:18 | Hospitalist Progress Note ---
Hospitalist Progress Note Date of Service Jul 27, 2016. (Jerica Rosa ., PA-C) Subjective Pt evaluation today including: conversation w/ patient, physical exam, chart review, lab review, review of inpatient medication list Voiding: no voiding problems, no incontinence Patient states she is feeling better since admission. +productive cough. Per patient she has recurrent bronchitis, and "it seems like I always have this cough." Patient states she just received a DuoNeb and feels much improved. Patient denies any fever, chills, sweats, lightheadedness, dizziness, vision changes, CP, palpitations, edema, wheezing, abdominal pain, nausea, vomiting, diarrhea, urinary symptoms, melena, numbness/tingling, weakness, muscle/joint pain, anxiety/depression, active bleeding, or new skin discoloration/changes. (Jerica Rosa ., PA-C) Medications Current Inpatient Medications Medications (Trade) Dose Ordered Sig/Joceline Route Start Time Stop Time Status Last Admin Dose Admin Acetaminophen (Tylenol Tab) 650 mg Q4H PRN PO 07/26/16 16:30 08/25/16 16:29 Zolpidem Tartrate (Ambien Tab) 5 mg HSZ PRN PO 07/26/16 16:30 08/25/16 16:29 07/26/16 23:39 5 MG Carbidopa/Levodopa (Sinemet Cr 25/ 100MG Tab) 1 tab QID PO 07/26/16 17:00 08/25/16 16:59 07/27/16 08:28 1 TAB Hydroxyzine HCl (Vistaril Tab) 25 mg TID PRN PO 07/26/16 16:30 08/25/16 16:29 Montelukast Sodium (Singulair Tab) 10 mg PM PO 07/26/16 21:00 08/25/16 20:59 07/26/16 21:15 10 MG Pantoprazole Sodium (Protonix Tab) 40 mg BID PO 07/26/16 20:00 08/25/16 20:59 07/27/16 08:28 40 MG Venlafaxine HCl (effeXOR EXTENDED REL CAP) 37.5 mg QPM PO 07/26/16 21:00 08/25/16 20:59 07/26/16 21:15 37.5 MG Lovastatin (Mevacor Tab) 40 mg DAILY@17 PO 07/26/16 17:00 08/25/16 16:59 07/26/16 21:14 40 MG Lorazepam (Ativan Inj) 0.5 mg Q4H PRN IV 07/26/16 16:30 08/25/16 16:29 07/27/16 08:19 0.5 MG Magnesium Hydroxide (Milk Of Magnesia Susp) 30 ml Q6H PRN PO 07/26/16 16:30 08/25/16 16:29 Bisacodyl (Dulcolax Supp) 10 mg DAILY PRN RI 07/26/16 16:30 08/25/16 16:29 Al Hydrox/Mg Hydrox/ Simethicone 15 ml 15 ml Q4H PRN PO 07/26/16 16:30 08/25/16 16:29 Promethazine HCl/ Sodium Chloride (Phenergan Inj/ Nss 50ml) 50.5 ml @ 202 mls/hr Q4H PRN IV 07/26/16 16:30 08/25/16 16:29 Ondansetron HCl (Zofran Inj) 4 mg Q6H PRN IV 07/26/16 16:30 08/25/16 16:29 Docusate Sodium (coLACE CAP) 100 mg BID PO 07/26/16 20:00 08/25/16 20:59 07/27/16 08:27 100 MG Morphine Sulfate 2 mg 2 mg Q2H PRN IV 07/26/16 16:30 08/09/16 16:29 Methylprednisolone Sodium Succinate 30 mg/Syringe 0.48 ml @ 1.5 mls/min Q8H IV 07/26/16 21:00 08/25/16 20:59 07/27/16 05:18 1.5 MLS/MIN Ceftriaxone Sodium/Dextrose (Rocephin Inj/ Dextrose Add-[place] 50ML) 50 ml @ 100 mls/hr Q24H IV 07/26/16 21:00 08/02/16 20:59 07/26/16 21:19 100 MLS/HR Guaifenesin 600 mg 600 mg Q12 PO 07/26/16 21:00 08/25/16 20:59 07/27/16 08:28 600 MG Azithromycin/ Dextrose (Zithromax IV/D5 250ml) 255 ml @ 125 mls/hr DAILY@2200 IV 07/26/16 22:00 08/02/16 21:59 07/26/16 22:05 125 MLS/HR Ipratropium [place] (Atrovent 0.02% 0.5MG/2.5ML Neb) 0.5 mg Q6R INH 07/26/16 21:00 08/25/16 20:59 07/27/16 07:50 0.5 MG Levalbuterol (Xopenex 1.25MG/ 0.5ML Neb) 1.25 mg Q6R INH 07/26/16 21:00 08/25/16 20:59 07/27/16 07:50 1.25 MG Ipratropium [place] (Atrovent 0.02% 0.5MG/2.5ML Neb) 0.5 mg Q2H PRN INH 07/26/16 20:45 08/25/16 20:44 Levalbuterol (Xopenex 1.25MG/ 0.5ML Neb) 1.25 mg Q2H PRN INH 07/26/16 20:45 08/25/16 20:44 Salmeterol Xinafoate/ Fluticasone (Advair Diskus 500/50 Inh) 1 puff BID INH 07/27/16 08:00 08/26/16 07:59 07/27/16 10:08 1 PUFF Albuterol (Ventolin Hfa Inhaler) 2 puffs Q6H PRN INH 07/27/16 14:00 08/26/16 13:59 (Jerica Rosa, PAMarC) Objective Vital Signs Date Time Temp Pulse Resp B/P Pulse Ox O2 Delivery O2 Flow Rate FiO2 07/27/16 08:00 Room Air 07/27/16 08:00 95 Room Air 07/27/16 07:51 103 16 93 Room Air 07/27/16 07:39 36.5 103 18 156/90 95 Room Air 07/27/16 00:00 Room Air 07/26/16 23:25 37.3 102 2 116/74 97 Room Air 07/26/16 21:26 105 16 92 Room Air 07/26/16 21:26 105 16 92 Room Air 07/26/16 20:00 Room Air 07/26/16 18:42 36.9 100 18 103/68 96 Room Air 07/26/16 17:20 109 22 155/87 100 07/26/16 15:35 109 22 155/87 100 07/26/16 13:54 97 22 150/87 100 Room Air 07/26/16 12:15 102 20 128/72 100 Room Air 07/26/16 12:15 100 Room Air 07/26/16 11:06 37.0 110 20 128/72 100 Room Air (Jerica Rosa, PA-C) Physical Exam General Appearance: no apparent distress Eyes: normal inspection, PERRL ENT: hearing grossly normal Neck: supple Respiratory/Chest: no respiratory distress, no accessory muscle use, + crackles (diffuse, >at bilateral lung bases ) Cardiovascular: regular rate, rhythm Abdomen: normal bowel sounds, non tender, soft Extremities: no pedal edema, no calf tenderness 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: alert, normal mood/affect, oriented x 3 Skin: normal color, warm/dry, no rash (Jerica Rosa, PA-C) Laboratory Results Last 24 Hours Test 07/26/16 11:10 07/26/16 11:36 07/26/16 11:54 07/26/16 12:14 White Blood Count 7.56 K/uL Red Blood Count 4.04 M/uL Hemoglobin 13.2 g/dL Hematocrit 38.5 % Mean Corpuscular Volume 95.3 fL Mean Corpuscular Hemoglobin 32.7 pg Mean Corpuscular Hemoglobin Concent 34.3 g/dl Platelet Count 380 K/uL Mean Platelet Volume 8.8 fL Neutrophils (%) (Auto) 69.0 % Lymphocytes (%) (Auto) 16.1 % Monocytes (%) (Auto) 11.4 % Eosinophils (%) (Auto) 2.9 % Basophils (%) (Auto) 0.1 % Neutrophils # (Auto) 5.21 K/uL Lymphocytes # (Auto) 1.22 K/uL Monocytes # (Auto) 0.86 K/uL Eosinophils # (Auto) 0.22 K/uL Basophils # (Auto) 0.01 K/uL RDW Standard Deviation 49.7 fL RDW Coefficient of Variation 14.3 % Immature Granulocyte % (Auto) 0.5 % Immature Granulocyte # (Auto) 0.04 K/uL Erythrocyte Sedimentation Rate 54 mm/hr Prothrombin Time 10.7 SECONDS Prothromb Time International Ratio 1.0 Activated Partial Thromboplast Time 30.2 SECONDS Partial Thromboplastin Ratio 1.2 Sodium Level 136 mmol/L Potassium Level 4.2 mmol/L Chloride Level 101 mmol/L Carbon Dioxide Level 25 mmol/L Anion Gap 10.0 mmol/L Blood Urea Nitrogen 20 mg/dl Creatinine 1.00 mg/dl Est Creatinine Clear Calc Drug Dose 34.9 ml/min Estimated GFR () 61.2 Estimated GFR (Non- 52.8 BUN/Creatinine Ratio 19.7 Random Glucose 106 mg/dl Calcium Level 9.1 mg/dl Phosphorus Level 3.4 mg/dl Magnesium Level 2.4 mg/dl Total Bilirubin 0.5 mg/dl Aspartate Amino Transf (AST/SGOT) 11 U/L Alanine Aminotransferase (ALT/SGPT) 6 U/L Alkaline Phosphatase 107 U/L Total Creatine Kinase 32 U/L Creatine Kinase MB < 0.5 ng/ml Creatine Kinase MB Ratio Troponin I < 0.015 ng/ml C-Reactive Protein 12.70 mg/dl Pro-B-Type Natriuretic Peptide 1123 pg/ml Total Protein 7.4 gm/dl Albumin 3.2 gm/dl Globulin 4.2 gm/dl Albumin/Globulin Ratio 0.8 Lipase 114 U/L Thyroid Stimulating Hormone (TSH) 1.750 uIu/ml Free Thyroxine 1.16 ng/dl Venous Blood pH 7.47 Venous Blood Partial Pressure CO2 39 mmHg Venous Blood Partial Pressure O2 28 mmHg Venous Blood HCO3 27 mmol/L Venous Blood Oxygen Saturation < 60.0 % Venous Blood Base Excess 3.3 mmol/L Bedside Lactic Acid Venous 0.87 mmol/L Urine Color YELLOW Urine Appearance CLEAR Urine pH 6.5 Urine Specific [place] 1.012 Urine Protein NEG Urine Glucose (UA) NEG Urine Ketones NEG Urine Occult Blood NEG Urine Nitrite NEG Urine Bilirubin NEG Urine Urobilinogen NEG Urine Leukocyte Esterase NEG Urine WBC (Auto) 1-5 /hpf Urine RBC (Auto) 0-4 /hpf Urine Hyaline Casts (Auto) 0 /lpf Urine Epithelial Cells (Auto) 5-10 /lpf Urine Bacteria (Auto) NEG Test 07/26/16 17:15 07/27/16 03:42 07/27/16 05:16 Influenza Type A (RT-PCR) Neg for Influ A Influenza Type A Antigen Neg for Influ A Influenza Type B Antigen Neg for Influ B Influenza Type B (RT-PCR) Neg for Influ B Total Creatine Kinase 33 U/L Creatine Kinase MB 0.7 ng/ml Creatine Kinase MB Ratio 2.1 Troponin I < 0.015 ng/ml White Blood Count 3.81 K/uL Red Blood Count 3.77 M/uL Hemoglobin 12.0 g/dL Hematocrit 35.8 % Mean Corpuscular Volume 95.0 fL Mean Corpuscular Hemoglobin 31.8 pg Mean Corpuscular Hemoglobin Concent 33.5 g/dl Platelet Count 353 K/uL Mean Platelet Volume 8.7 fL Neutrophils (%) (Auto) 82.2 % Lymphocytes (%) (Auto) 13.6 % Monocytes (%) (Auto) 3.1 % Eosinophils (%) (Auto) 0.3 % Basophils (%) (Auto) 0.0 % Neutrophils # (Auto) 3.13 K/uL Lymphocytes # (Auto) 0.52 K/uL Monocytes # (Auto) 0.12 K/uL Eosinophils # (Auto) 0.01 K/uL Basophils # (Auto) 0.00 K/uL RDW Standard Deviation 49.8 fL RDW Coefficient of Variation 14.4 % Immature Granulocyte % (Auto) 0.8 % Immature Granulocyte # (Auto) 0.03 K/uL Sodium Level 139 mmol/L Potassium Level 4.5 mmol/L Chloride Level 105 mmol/L Carbon Dioxide Level 24 mmol/L Anion Gap 10.0 mmol/L Blood Urea Nitrogen 20 mg/dl Creatinine 0.91 mg/dl Est Creatinine Clear Calc Drug Dose 38.4 ml/min Estimated GFR () 68.6 Estimated GFR (Non- 59.2 BUN/Creatinine Ratio 21.8 Random Glucose 137 mg/dl Calcium Level 8.8 mg/dl Magnesium Level 2.3 mg/dl Chemistry Specimen Hemolysis (Jerica Rosa, ANJANA-C) Assessment and Plan The patient is an 81-year-old female who presents to the emergency department with symptoms of fatigue, difficulty in relating with walker, pain in her right knee and hip, history of fall approximately 2 weeks ago, with concerns of patient and family about ability stay alone at home. She does note a cough productive of yellow sputum. She does have history of Parkinson's disease which also affects her ambulation. The family is concerned about their ability to take care of her at home if she does not improve. Pneumonia/bacteriemia: - Admit to med/surg - Placed on Ceftriaxone 1 g IV daily, Azithromycin 500 mg IV daily, Solu-Medrol 30 mg IV every 8 hours, Guaifenesin extended release 600 mg by mouth twice a day - Xopenex with Atrovent nebulizer to use every 6 hours while awake and every 2 hours when necessary. Continue montelukast sodium 10 mg by mouth daily and Ventolin HFA and Advair discus. - Influenza negative - U/A negative - Blood culture growing gram positive cocci x1--> Start IV Vancomycin on 07/27, consult ID, appreciate recommendations - Follow CBC and PRP Hypertension/nonspecific EKG changes: - Trend cardiac enzymes- negative - Repeat EKG with no significant changes Parkinson's: Continue Carbidopa levodopa 25/100, 1 tablet by mouth 4 times a day. Hypercholesterolemia: continue Mevacor 40 mg by mouth daily. GERD: continue Pantoprazole 40 mg by mouth twice a day. Depression: continue Venlafaxine ER visit and 0.5 g by mouth every afternoon. Dispo: Discharge to [facility] once medically stable (patient accepted). (Jerica Rosa, MOISÉS) Reviewed: Pt Seen/Exam by CHRIS Mckinnon Notes, Labs, RAD, EKG (Shanika Block MD) History Physician Behavioral Health Associate Supervision Note: I interviewed and examined the patient. Discussed with ANJANA Rosa and agree with findings and plan as documented in the note. 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 She has severe atopic dermatitis since . Cough is improved. Her left hip, thigh and left lateral knee pain is improving since her fall 2 weeks ago but still present. Vitals reviewed NAD, anxious, perseverates on possible Staph infection Reg rhythm, mild tachycardia, no mgr +Crackles at left base but otherwise diminished BS throughout, no wheezing Ext no edema, no effusions, right shoulder with large 6-7cm rounded cystic structure overlying AC joint, nontender Skin- darkly pigmented throughout and then legs with numerous pigmented macules and multiple areas of mild excoriated small lesions, no erythema or drainage A/P: 81 yo female with LLL and Lingula PNA, GPC bacteremia, and weakness with recent fall and left lower ext pain. -continue Rocephin, Azithro, Vanco, ID following -f/u BCxs and may repeat BCx to ensure no growth -may need PICC and IV abx x 14 days if true bacteremia -nebs and Advair, IV steroids and taper down -Aquaphor to skin for severe atopic dermatitis which does predispose her for skin infections -PT/OT evals and rehab placement -repeat ECG with persistent lateral lead TWIs but asymptomatic, troponin neg x 2 --> if remains tachy, may add on metoprolol, repeat ECG in AM Proph-add on Lovenox Documented By: Shanika Block (Shanika Block MD)
[2016-07-27] MEDS ORDERED: VANCOMYCIN CONSULT ACTIVE PRN (13:00)
[2016-07-27] MEDS ORDERED: VANCOMYCIN INJ 1,300 MG in SODIUM CHLORIDE 0.9% 250ML 250 ML IV SCH (13:30)
[2016-07-27] MEDS ORDERED: ALBUTEROL HFA 8 GM INHALER INH PRN (14:00)
--- NOTE | 2016-07-27 14:26 | Pharmacy Progress Note ---
Pharmacy Antibiotic Consult Date of Service: Jul 27, 2016. Pharmacy Dosing Scope Pharmacy is consulted to initiate Vancomycin IV dosing therapy, order appropriate labs and adjust drug dose/frequency for Bacteremia and Pneumonia. Subjective The patient is a 81 year old female admitted on Jul 26, 2016 at 16:33. Objective Height (Feet): 5 Height (Inches): 2.00 Weight (Kilograms): 58.700 Lab Results (24hrs): Laboratory Tests Test 07/27/16 05:16 BUN/Creatinine Ratio 21.8 Blood Urea Nitrogen 20 mg/dl Creatinine 0.91 mg/dl White Blood Count 3.81 K/uL Red Blood Count 3.77 M/uL Hemoglobin 12.0 g/dL Hematocrit 35.8 % Mean Corpuscular Volume 95.0 fL Mean Corpuscular Hemoglobin 31.8 pg Mean Corpuscular Hemoglobin Concent 33.5 g/dl Platelet Count 353 K/uL Mean Platelet Volume 8.7 fL Neutrophils (%) (Auto) 82.2 % Lymphocytes (%) (Auto) 13.6 % Monocytes (%) (Auto) 3.1 % Eosinophils (%) (Auto) 0.3 % Basophils (%) (Auto) 0.0 % Neutrophils # (Auto) 3.13 K/uL Lymphocytes # (Auto) 0.52 K/uL Monocytes # (Auto) 0.12 K/uL Eosinophils # (Auto) 0.01 K/uL Basophils # (Auto) 0.00 K/uL Recent Pertinent Medications Also on: Zithromax 500 mg IV daily Rocephin 1 gm IV daily Assessment & Plan * Loading dose: Vancomycin 1300 mg (22 mg/kg) IV x1 dose ordered for 1330 today then, * Vancomycin 1 gm IV daily at 1200 starting tomorrow. * Estimated pharmacokinetics: ke = 0.036 /hr, t1/2 = 19.3 hrs, Vd = 0.7 L/kg * Goal trough level estimate: between 15 - 20 mcg/mL. * Trough Vancomycin level has been ordered for 1200 tomorrow. Pharmacy will continue to follow and will adjust dose/frequency as necessary. Thank you
--- NOTE | 2016-07-27 16:02 | Medical Consult ---
Consultation Date of Consultation: Jul 27, 2016. Attending Physician: Augustine Doll M.D. Reason for Consultation: Gram-positive cocci in blood cultures History of Present Illness 81-year-old female with history of Parkinson's disease, seen recently in the emergency department after a fall, with severe pain in her left hip and knee area, negative x-rays, subsequently did well for a short time, then developed increasing weakness associated with some mental status changes. She feels that she may have had a low-grade fever as well. She has developed worsening anorexia, and the daughter notes worsening confusion. She was admitted to the hospital for further management, and now blood cultures are reported positive for gram-positive cocci. I have reviewed the Gram stain, and they appear in clusters consistent with staphylococcal species. She has been started empirically on vancomycin, and also on azithromycin and ceftriaxone because of worry of possible pneumonia. She is feeling somewhat improved from yesterday. Of note, patient reports prior history of severe recurrent staphylococcal skin infections, several of which required hospitalization, but has had none in the last several years. Denies any recent skin infection. Past Medical/Surgical History Medical Problems: (1) Contusion of left hip and thigh Status: Acute (2) Fall Status: Acute (3) Fall Status: Acute (4) Inability to ambulate due to left knee Status: Acute (5) Left knee sprain Status: Acute (6) TIA (transient ischemic attack) Status: Acute (7) Weakness Status: Acute Medical Problems: (1) Asthma, Unspecified (2) Depressive Disorder Nec (3) Diab Leticia Wo Compl, Type Ii Or Unspec Type, Not Uncntrld (4) Esophageal Reflux (5) Hyperlipidemia Nec/Nos (6) Hypertension Nos (7) Parkinson disease (8) Pneumonia Family History Gallbladder disease Heart disease Hypertension Kidney disease Kidney stones Social History Smoking Status: Never Smoker Alcohol Use: none Drug Use: none Marital Status: Housing Status: lives with family Occupation Status: retired Allergies Coded Allergies: Diphenhydramine (Verified Allergy, Severe, SWELLING IN THROAT, 07/26/16) Iodine (Verified Allergy, Severe, THROAT SWELLING, 07/26/16) Shellfish (Verified Allergy, Severe, ANAPHYLAXIS AND FULL BODY HIVES, 07/26) Ciprofloxacin (Verified Allergy, Intermediate, HIVES FULL BODY, 07/26/16) Quinine (Verified Allergy, Mild, HIVES, 07/26/16) Latex1 -Allergic Contact Dermititis (Verified Allergy, Unknown, DERMATITIS , 07/26/16) Triprolidine (Verified Allergy, Unknown, HIVES, ASTHMA EXACERBATION, ) Current Inpatient Medications Current Inpatient Medications Medications (Trade) Dose Ordered Sig/Joceline Route Start Time Stop Time Status Last Admin Dose Admin Acetaminophen (Tylenol Tab) 650 mg Q4H PRN PO 07/26/16 16:30 08/25/16 16:29 Zolpidem Tartrate (Ambien Tab) 5 mg HSZ PRN PO 07/26/16 16:30 08/25/16 16:29 07/26/16 23:39 5 MG Carbidopa/Levodopa (Sinemet Cr 25/ 100MG Tab) 1 tab QID PO 07/26/16 17:00 08/25/16 16:59 07/27/16 12:33 1 TAB Hydroxyzine HCl (Vistaril Tab) 25 mg TID PRN PO 07/26/16 16:30 08/25/16 16:29 Montelukast Sodium (Singulair Tab) 10 mg PM PO 07/26/16 21:00 08/25/16 20:59 07/26/16 21:15 10 MG Pantoprazole Sodium (Protonix Tab) 40 mg BID PO 07/26/16 20:00 08/25/16 20:59 07/27/16 08:28 40 MG Venlafaxine HCl (effeXOR EXTENDED REL CAP) 37.5 mg QPM PO 07/26/16 21:00 08/25/16 20:59 07/26/16 21:15 37.5 MG Lovastatin (Mevacor Tab) 40 mg DAILY@17 PO 07/26/16 17:00 08/25/16 16:59 07/26/16 21:14 40 MG Lorazepam (Ativan Inj) 0.5 mg Q4H PRN IV 07/26/16 16:30 08/25/16 16:29 07/27/16 08:19 0.5 MG Magnesium Hydroxide (Milk Of Magnesia Susp) 30 ml Q6H PRN PO 07/26/16 16:30 08/25/16 16:29 Bisacodyl (Dulcolax Supp) 10 mg DAILY PRN VT 07/26/16 16:30 08/25/16 16:29 Al Hydrox/Mg Hydrox/ Simethicone 15 ml 15 ml Q4H PRN PO 07/26/16 16:30 08/25/16 16:29 Promethazine HCl/ Sodium Chloride (Phenergan Inj/ Nss 50ml) 50.5 ml @ 202 mls/hr Q4H PRN IV 07/26/16 16:30 08/25/16 16:29 Ondansetron HCl (Zofran Inj) 4 mg Q6H PRN IV 07/26/16 16:30 08/25/16 16:29 Docusate Sodium (coLACE CAP) 100 mg BID PO 07/26/16 20:00 08/25/16 20:59 07/27/16 08:27 100 MG Morphine Sulfate 2 mg 2 mg Q2H PRN IV 07/26/16 16:30 08/09/16 16:29 Methylprednisolone Sodium Succinate 30 mg/Syringe 0.48 ml @ 1.5 mls/min Q8H IV 07/26/16 21:00 08/25/16 20:59 07/27/16 12:33 1.5 MLS/MIN Ceftriaxone Sodium/Dextrose (Rocephin Inj/ Dextrose Add-[place] 50ML) 50 ml @ 100 mls/hr Q24H IV 07/26/16 21:00 08/02/16 20:59 07/26/16 21:19 100 MLS/HR Guaifenesin 600 mg 600 mg Q12 PO 07/26/16 21:00 08/25/16 20:59 07/27/16 08:28 600 MG Azithromycin/ Dextrose (Zithromax IV/D5 250ml) 255 ml @ 125 mls/hr DAILY@2200 IV 07/26/16 22:00 08/02/16 21:59 07/26/16 22:05 125 MLS/HR Ipratropium [place] (Atrovent 0.02% 0.5MG/2.5ML Neb) 0.5 mg Q6R INH 07/26/16 21:00 08/25/16 20:59 07/27/16 14:25 0.5 MG Levalbuterol (Xopenex 1.25MG/ 0.5ML Neb) 1.25 mg Q6R INH 07/26/16 21:00 08/25/16 20:59 07/27/16 14:25 1.25 MG Ipratropium [place] (Atrovent 0.02% 0.5MG/2.5ML Neb) 0.5 mg Q2H PRN INH 07/26/16 20:45 08/25/16 20:44 Levalbuterol (Xopenex 1.25MG/ 0.5ML Neb) 1.25 mg Q2H PRN INH 07/26/16 20:45 08/25/16 20:44 Salmeterol Xinafoate/ Fluticasone (Advair Diskus 500/50 Inh) 1 puff BID INH 07/27/16 08:00 08/26/16 07:59 07/27/16 10:08 1 PUFF Albuterol 2 puffs 2 puffs Q6H PRN INH 07/27/16 14:00 08/26/16 13:59 Vancomycin HCl 1000 mg/Sodium Chloride 270 ml @ 125 mls/hr DAILY@1200 IV 07/28/16 12:00 08/10/16 11:59 Vancomycin HCl/ Sodium Chloride (Vancomycin Inj/ Nss 250ml) 276 ml @ 125 mls/hr 1330 IV 07/27/16 13:30 07/27/16 18:00 07/27/16 13:24 125 MLS/HR Vancomycin HCl (Consult) 1 ea UD PRN N/A 07/27/16 13:00 08/26/16 12:59 Review of Systems All systems were reviewed and are negative except as per HPI Physical Exam Date Time Temp Pulse Resp B/P Pulse Ox O2 Delivery O2 Flow Rate FiO2 07/27/16 15:41 Room Air 07/27/16 14:38 36.9 109 18 149/80 94 Room Air 07/27/16 14:25 113 16 94 Room Air 07/27/16 11:00 36.6 110 19 148/85 96 Room Air 07/27/16 08:00 Room Air 07/27/16 08:00 95 Room Air 07/27/16 07:51 103 16 93 Room Air 07/27/16 07:39 36.5 103 18 156/90 95 Room Air 07/27/16 00:00 Room Air 07/26/16 23:25 37.3 102 2 116/74 97 Room Air 07/26/16 21:26 105 16 92 Room Air 07/26/16 21:26 105 16 92 Room Air 07/26/16 20:00 Room Air 07/26/16 18:42 36.9 100 18 103/68 96 Room Air 07/26/16 17:20 109 22 155/87 100 General Appearance: WD/WN, no apparent distress Head: normocephalic, atraumatic Eyes: normal inspection, EOMI, sclerae normal ENT: normal ENT inspection, pharynx normal Neck: supple, no adenopathy, thyroid normal, trachea midline Respiratory/Chest: chest non-tender, no respiratory distress, no accessory muscle use, + rales ( basilar) Cardiovascular: regular rate, rhythm, no gallop, no murmur Abdomen/GI: normal bowel sounds, non tender, soft, no organomegaly Back: normal inspection, no CVA tenderness Extremities/Musculoskelatal: no calf tenderness, normal capillary refill Neurologic/Psych: alert, oriented x 3, + pertinent finding ( tremor) Skin: normal color, no rash Lymphatic: no adenopathy Laboratory Results RUN DATE: 07/27/16 [facility] PAGE 1 RUN TIME: 826 Specimen Inquiry PATIENT: EDELMIRA ALMAZAN LOC: [facility] U # : [id number] AGE/SX: 81/F ROOM: E410 REG : 07/26/[address]: Augustine Doll M.D : 1935 BED: 1 DIS : STATUS: ADM IN TLOC: SPEC #: [id number] IAN: 07/26/16 STATUS: RES REQ #: [id number] RECD: 07/26/[address]: Juan Jose Kiser DO SOURCE: BLOOD ENTR: 07/26/[address]: Artemio Cleary M.D. [facility]: ORDERED: BLOOD CULTURE Procedure Result Verified Site BLD CULT Preliminary 07/27/16-826 Organism 1 GRAM POSITIVE COCCI SENS SENSITIVITIES DEPENDENT ON FURTHER IDENTIFICATION Phoned Positive Blood Culture Gram Stain Report to OUMAR ROBERT on 07/27/16 At 0825 By ROSANNA. Results were verbalized back to ROSANNA. Last 24 Hours Test 07/26/16 17:15 07/27/16 03:42 07/27/16 05:16 Influenza Type A (RT-PCR) Neg for Influ A Influenza Type A Antigen Neg for Influ A Influenza Type B Antigen Neg for Influ B Influenza Type B (RT-PCR) Neg for Influ B Total Creatine Kinase 33 U/L Creatine Kinase MB 0.7 ng/ml Creatine Kinase MB Ratio 2.1 Troponin I < 0.015 ng/ml White Blood Count 3.81 K/uL Red Blood Count 3.77 M/uL Hemoglobin 12.0 g/dL Hematocrit 35.8 % Mean Corpuscular Volume 95.0 fL Mean Corpuscular Hemoglobin 31.8 pg Mean Corpuscular Hemoglobin Concent 33.5 g/dl Platelet Count 353 K/uL Mean Platelet Volume 8.7 fL Neutrophils (%) (Auto) 82.2 % Lymphocytes (%) (Auto) 13.6 % Monocytes (%) (Auto) 3.1 % Eosinophils (%) (Auto) 0.3 % Basophils (%) (Auto) 0.0 % Neutrophils # (Auto) 3.13 K/uL Lymphocytes # (Auto) 0.52 K/uL Monocytes # (Auto) 0.12 K/uL Eosinophils # (Auto) 0.01 K/uL Basophils # (Auto) 0.00 K/uL RDW Standard Deviation 49.8 fL RDW Coefficient of Variation 14.4 % Immature Granulocyte % (Auto) 0.8 % Immature Granulocyte # (Auto) 0.03 K/uL Sodium Level 139 mmol/L Potassium Level 4.5 mmol/L Chloride Level 105 mmol/L Carbon Dioxide Level 24 mmol/L Anion Gap 10.0 mmol/L Blood Urea Nitrogen 20 mg/dl Creatinine 0.91 mg/dl Est Creatinine Clear Calc Drug Dose 38.4 ml/min Estimated GFR () 68.6 Estimated GFR (Non- 59.2 BUN/Creatinine Ratio 21.8 Random Glucose 137 mg/dl Calcium Level 8.8 mg/dl Magnesium Level 2.3 mg/dl Chemistry Specimen Hemolysis Patient Name: EDELMIRA ALMAZAN Unit Number: [id number] Dictated: 07/26/[id number] Transcribed: 02/14/17 1750 JA Printed Date/Time: [~ rep prt dt]/[~ rep prt tm] [~ rep ct labl] - [~ rep ct ivnm] [facility] [place] [address] Dictated: 07/26/[id number] Transcribed: 07/26/161749 JA Printed Date/Time: [~ rep prt dt]/[~ rep prt tm] [~ rep ct labl] - [~ rep ct ivnm] CLINICAL HISTORY: Productive cough. COMPARISON STUDY: Chest radiograph July 26, 2016 and February 08, 2015 TECHNIQUE: Axial images of the chest were obtained without IV contrast. Images were reviewed in the axial, sagittal, and coronal planes. IV contrast was not administered for this examination. FINDINGS: No enlarged axillary, mediastinal or hilar lymph nodes are present. 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 Note is made of a 5 cm water attenuation lesion overlying the anterior right acromioclavicular joint. This is partially imaged on this study. The size of the heart is at the upper limits of normal. There is no pericardial effusion. A small hiatal hernia is present. There is extensive coronary artery calcification. No pneumothorax or pleural effusion is present. The central airways are patent. There are mild groundglass opacities within the lingula and left lower lobe. Bony thorax and upper abdomen are unremarkable on this unenhanced exam IMPRESSION: 1. Mild groundglass opacity within the lingula and left lower lobe. Appearance favors atelectasis. An infectious process could appear similar but is considered less likely. 2. No thoracic lymphadenopathy. 3. 5 cm water attenuation abnormality overlying the anterior aspect of the right acromioclavicular joint. This is partially imaged on this unenhanced exam. This likely reflects a cyst and may be related to arthritis of the right shoulder. This could be correlated with clinical evidence of stability. Electronically signed by: Burton Damon M.D. 07/26/2016 5:58 PM Dictated Date/Time: 07/26/2016 5:50 PM The status of this report is Signed. Draft = Not yet reviewed or approved by Radiologist. Signed = Reviewed and approved by Radiologist. <AttendingPhy>Augustine Doll M.D.</AttendingPhy> <FamilyPhy>Artemio Cleary M.D.</FamilyPhy> <PrimaryPhy>Artemio Cleary M.D.</PrimaryPhy> <UnitNumber> [id number]</UnitNumber> <VisitNumber>[id number]</VisitNumber> <PatientName> EDELMIRA ALMAZAN</PatientName> <DateOfBirth>1935</DateOfBirth> <Location>[facility]< /Location> <ServiceDate>07/26/16</ServiceDate> <MNE>ESINDI</MNE> <OrderingPhy> Augustine Doll M.D.</OrderingPhy> <OrderingPhyMNE>f rep ord dr shultz</ OrderingPhyMNE> <DictatingPhyMNE>f rep dict dr shultz</DictatingPhyMNE> <CCListMNE> f rep ct joannee</CCListMNE> <AdmittingPhyMNE>f pt admit dr shultz</AdmittingPhyMNE> < AttendingPhyMNE>f pt attend dr shultz</AttendingPhyMNE> <ConsultingPhyMNE>f pt consult dr shultz</ConsultingPhyMNE> <FamilyPhyMNE>f pt fam dr shultz</FamilyPhyMNE> <OtherPhyMNE>f pt other dr shultz</OtherPhyMNE> < PrimaryPhyMNE>f pt prim care dr shultz</PrimaryPhyMNE> <ReferringPhyMNE>f pt referring dr shultz</ReferringPhyMNE> Assessment & Plan 81-year-old female admitted with progressive weakness and mental status changes , now found to have positive blood culture for gram-positive cocci with appearance consistent with Staph. Of interest is prior history of severe staphylococcal skin infections. No apparent source on examination. Patient should be continued on vancomycin continue other antibiotics if no further pathogens identified. I have ordered additional blood cultures as this is also possible contaminant. Will need to watch closely for persistent knee or hip pain, as if Staph aureus, joint seeding is possible. Will follow.
[2016-07-27] MEDS ORDERED: HYDROPHOR OINT 454 GM JAR EXT ONE (16:45)
[2016-07-27] MEDS: LOVASTATIN 20 MG TAB PO SCH (18:01)
[2016-07-27] MEDS: ENOXAPARIN 40 MG/0.4 ML SYR SQ SCH (18:06)
[2016-07-27] MEDS: HYDROPHOR OINT 454 GM JAR EXT SCH (20:02)
[2016-07-27] MEDS: CEFTRIAXONE SOD INJ 1 GM in DEXTROSE 5% ADD-VANTAGE 50ML 50 ML IV SCH (20:03)
[2016-07-27] MEDS: MONTELUKAST SOD 10 MG TAB PO SCH (20:04)
[2016-07-27] MEDS: VENLAFAXINE HCL XR 37.5 MG CAPXR PO SCH (20:06)
[2016-07-27] MEDS: AZITHROMYCIN IV 500 MG in DEXTROSE 5% 250ML 250 ML IV SCH (21:13)
[2016-07-27] MEDS: hydrOXYzine HCL 25 MG TAB PO PRN (21:26)
[2016-07-28] VITALS (8 sets, daily range): BP systolic 119–164; BP diastolic 77–96; PULSE 89–115; TEMP 36.8–37; O2SAT 92–96
[2016-07-28] MEDS: LORAZEPAM INJ 0.5 MG in SYRINGE 0.75 ML IV PRN (01:28)
[2016-07-28] MEDS: IPRATROPIUM BROMIDE NEB SOLN 0.02% 2.5 ML VIAL INH SCH ×4 (02:34→19:01)
[2016-07-28] MEDS: LEVALBUTEROL 1.25MG/0.5ML NEB INH SCH ×4 (02:34→19:01)
[2016-07-28] MEDS: METHYLPREDNISOLONE IV 30 MG in SYRINGE 0 ML IV SCH ×2 (05:20→16:21)
[2016-07-28 06:13] LABS: HEMATOCRIT 35.1 % (37-47); MEAN CELL VOLUME 94.1 fL (80-100); MEAN CORPUSCULAR HEMOGLOBIN 32.2 pg (25-34); MEAN CORPUSCULAR HGB CONC 34.2 g/dl (32-36); MEAN PLATELET VOLUME 8.6 fL (7.4-10.4); PLATELET COUNT 369 K/uL (130-400); RED BLOOD COUNT 3.73 M/uL (4.2-5.4); WHITE BLOOD COUNT 8.76 K/uL (4.8-10.8)
[2016-07-28 06:57] LABS: BASO % 0.1 %; BASO ABS # 0.01 K/uL (0-0.2); COMPLETE YES; IG% 0.2 %; LYMPH % 12.9 %; LYMPH ABS # 1.13 K/uL (1.2-3.4); MONO % 9.1 %; NEUT % 77.7 %
[2016-07-28 07:01] LABS: CALCIUM 8.8 mg/dl (8.5-10.1); CREATININE 0.94 mg/dl (0.60-1.20); MAGNESIUM 2.2 mg/dl (1.8-2.4); POTASSIUM 4.2 mmol/L (3.5-5.1)
[2016-07-28] MEDS: HYDROPHOR OINT 454 GM JAR EXT SCH ×2 (08:57→20:18)
[2016-07-28] MEDS: FLUTICASONE/SALMETEROL (ADVAIR) 500/50 INH 14 PUFF INH SCH ×2 (08:57→20:05)
[2016-07-28] MEDS: PANTOprazole SOD 40 MG TAB PO SCH ×2 (08:58→20:09)
[2016-07-28] MEDS: DOCUSATE SODIUM 100 MG CAP PO SCH ×2 (08:58→20:09)
[2016-07-28] MEDS: CARBIDOPA/LEVODOPA 25/100MG EXT REL TAB PO SCH ×3 (08:59→20:09)
[2016-07-28] MEDS: GUAIFENESIN 600 MG TABCR PO SCH ×2 (09:00→20:09)
[2016-07-28] MEDS ORDERED: VANCOMYCIN INJ 1,000 MG in SODIUM CHLORIDE 0.9% 250ML 250 ML IV SCH (12:00)
[2016-07-28] MEDS ORDERED: FLUOCINONIDE 0.05% CR 60 GM TUBE EXT PRN (12:15)
[2016-07-28] MEDS ORDERED: METOPROLOL TARTRATE 25 MG TAB PO ONE (12:40)
--- NOTE | 2016-07-28 12:42 | Hospitalist Progress Note ---
Hospitalist Progress Note Date of Service Jul 28, 2016. Subjective Pt evaluation today including: conversation w/ patient, physical exam, chart review, lab review, review of studies, review of inpatient medication list PO Intake: rajan po Voiding: no voiding problems Feeling much better, still coughing up yellow sputum, afebrile. Biggest complaint is bad restless legs, says she takes something for it but can't remember what it is. Review of Neurology records shows it is Requip. ALso appears her SInemet dose is supposed to be 1.5 tabs qid (not 1 tab qid) and is also supposed to be on Effexor 75 not 37.5. CHanges made. Assured her BCx from admission is a contaminant, repeat BCxs ordered today and stopped Vanc Constitutional: No fever Respiratory: + cough, + sputum Cardiovascular: No chest pain Abdomen: No pain Neurologic: + problem reported (restless legs) Objective Vital Signs Date Time Temp Pulse Resp B/P Pulse Ox O2 Delivery O2 Flow Rate FiO2 07/28/16 11:46 36.8 115 16 159/96 94 Room Air 07/28/16 10:03 96 Room Air 07/28/16 09:30 Room Air 07/28/16 08:05 37.0 105 14 164/93 96 07/28/16 07:28 104 12 92 Room Air 07/28/16 02:34 99 16 94 Room Air 07/28/16 01:30 Room Air 07/27/16 23:39 36.8 114 16 135/79 98 Room Air 07/27/16 19:58 102 16 94 Room Air 07/27/16 16:00 94 Room Air 07/27/16 15:41 Room Air 07/27/16 14:38 36.9 109 18 149/80 94 Room Air 07/27/16 14:25 113 16 94 Room Air Physical Exam General Appearance: no apparent distress Eyes: EOMI Neck: trachea midline Respiratory/Chest: no respiratory distress, no accessory muscle use, + crackles (at left base, otherwise clear) Cardiovascular: regular rate, rhythm, no edema, no murmur Abdomen: normal bowel sounds, non tender, soft Extremities: normal inspection, no pedal edema, no calf tenderness 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: alert, normal mood/affect Skin: + pertinent finding (diffusely dry skin with darker pigmentation and macular pigmented lesions on legs) Laboratory Results Last 24 Hours Test 07/28/16 05:49 White Blood Count 8.76 K/uL Red Blood Count 3.73 M/uL Hemoglobin 12.0 g/dL Hematocrit 35.1 % Mean Corpuscular Volume 94.1 fL Mean Corpuscular Hemoglobin 32.2 pg Mean Corpuscular Hemoglobin Concent 34.2 g/dl Platelet Count 369 K/uL Mean Platelet Volume 8.6 fL Neutrophils (%) (Auto) 77.7 % Lymphocytes (%) (Auto) 12.9 % Monocytes (%) (Auto) 9.1 % Eosinophils (%) (Auto) 0.0 % Basophils (%) (Auto) 0.1 % Neutrophils # (Auto) 6.80 K/uL Lymphocytes # (Auto) 1.13 K/uL Monocytes # (Auto) 0.80 K/uL Eosinophils # (Auto) 0.00 K/uL Basophils # (Auto) 0.01 K/uL RDW Standard Deviation 48.5 fL RDW Coefficient of Variation 14.0 % Immature Granulocyte % (Auto) 0.2 % Immature Granulocyte # (Auto) 0.02 K/uL Sodium Level 141 mmol/L Potassium Level 4.2 mmol/L Chloride Level 108 mmol/L Carbon Dioxide Level 24 mmol/L Anion Gap 9.0 mmol/L Blood Urea Nitrogen 24 mg/dl Creatinine 0.94 mg/dl Est Creatinine Clear Calc Drug Dose 37.1 ml/min Estimated GFR () 65.9 Estimated GFR (Non- 56.9 BUN/Creatinine Ratio 25.0 Random Glucose 125 mg/dl Calcium Level 8.8 mg/dl Magnesium Level 2.2 mg/dl Assessment and Plan The patient is an 81-year-old female who presents to the emergency department with symptoms of fatigue, difficulty walking even with walker, pain in her left knee and hip with history of fall approximately 2 weeks ago, with concerns of patient and family about ability stay alone at home. She does note a cough productive of yellow sputum. She does have history of Parkinson's disease which also affects her ambulation. The family is concerned about their ability to take care of her at home if she does not improve. Found to have LLL and lingular PNA on CT Chest on admission. CAP: LLL, lingula on Chest CT: 1. Mild groundglass opacity within the lingula and left lower lobe. Appearance favors atelectasis. An infectious process could appear similar but is considered less likely. 2. No thoracic lymphadenopathy. 3. 5 cm water attenuation abnormality overlying the anterior aspect of the right acromioclavicular joint. This is partially imaged on this unenhanced exam. This likely reflects a cyst and may be related to arthritis of the right shoulder. This could be correlated with clinical evidence of stability. BCxs with coag neg Staph 1/2 bottles, likely contaminant - continue Ceftriaxone 1 g IV daily, Azithromycin 500 mg IV daily, taper down Solu-Medrol for h/o asthma, Stop Vanco as coag neg Staph in BCx -continue Guaifenesin extended release 600 mg by mouth twice a day - Xopenex with Atrovent nebulizer to use every 6 hours while awake and every 2 hours when necessary. Continue montelukast sodium 10 mg by mouth daily and Ventolin HFA and Advair discus. - Influenza negative - U/A negative - Blood cultures repeated 07/28 and will follow - Follow CBC and PRP -will need f/u CXR in 4-6 weeks to ensure resolution Hypertension/nonspecific EKG changes: - Trend cardiac enzymes- negative -repeat ECG with persistent lateral lead TWIs but asymptomatic, troponin neg x 2 --> remains tachy, will add on metoprolol 12.5mg po bid Parkinson's, RLS: Continue Carbidopa levodopa 25/100 but increase to home dose of 1.5 tablet by mouth 4 times a day. -add Requip back on from home for RLS -add on FeSO4 tabs from home for RLS vs anemia -follows with Dr. Loyd of Neuro Atopic Dermatitis: Aquaphor to skin for severe atopic dermatitis which does predispose her for skin infections Hypercholesterolemia: continue Mevacor 40 mg by mouth daily. GERD: continue Pantoprazole 40 mg by mouth twice a day. Depression: continue Venlafaxine ER but increase to 75mg as is home dose Proph- Lovenox Dispo: Discharge to [facility] once medically stable (patient accepted)- probably tomorrow
[2016-07-28] MEDS: ROPINIROLE HCL 0.25 MG TAB PO SCH (13:18)
[2016-07-28] MEDS: ENOXAPARIN 40 MG/0.4 ML SYR SQ SCH (16:19)
[2016-07-28] MEDS: LOVASTATIN 20 MG TAB PO SCH (16:20)
[2016-07-28] MEDS: FERROUS SULFATE 325 MG TAB PO SCH (16:20)
[2016-07-28] MEDS: ALUMINUM/MAGNESIUM/SIMETH (MAALOX MAX) 30 ML UDC PO PRN (19:19)
[2016-07-28] MEDS: ROPINIROLE HCL 1 MG TAB PO SCH (20:09)
[2016-07-28] MEDS: VENLAFAXINE HCL XR 75 MG CAPXR PO SCH (20:09)
[2016-07-28] MEDS: MONTELUKAST SOD 10 MG TAB PO SCH (20:18)
[2016-07-28] MEDS: CEFTRIAXONE SOD INJ 1 GM in DEXTROSE 5% ADD-VANTAGE 50ML 50 ML IV SCH (20:18)
[2016-07-28] MEDS: METOPROLOL TARTRATE 25 MG TAB PO SCH (20:18)
[2016-07-28] MEDS: AZITHROMYCIN IV 500 MG in DEXTROSE 5% 250ML 250 ML IV SCH (22:23)
[2016-07-29] MEDS: LEVALBUTEROL 1.25MG/0.5ML NEB INH SCH ×4 (02:58→19:40)
[2016-07-29] MEDS: IPRATROPIUM BROMIDE NEB SOLN 0.02% 2.5 ML VIAL INH SCH ×2 (02:58→07:08)
[2016-07-29] MEDS: METHYLPREDNISOLONE IV 30 MG in SYRINGE 0 ML IV SCH (05:03)
[2016-07-29 06:29] LABS: HEMATOCRIT 35.6 % (37-47); MEAN CELL VOLUME 93.4 fL (80-100); MEAN CORPUSCULAR HEMOGLOBIN 31.5 pg (25-34); MEAN CORPUSCULAR HGB CONC 33.7 g/dl (32-36); MEAN PLATELET VOLUME 8.5 fL (7.4-10.4); PLATELET COUNT 395 K/uL (130-400); RED BLOOD COUNT 3.81 M/uL (4.2-5.4)
[2016-07-29 06:57] LABS: COMPLETE YES; IG% 0.1 %; LYMPH % 13.4 %; LYMPH ABS # 0.95 K/uL (1.2-3.4); MONO % 9.2 %; NEUT % 77.3 %
[2016-07-29 07:00] LABS: BUN/CREATININE RATIO 29.4 (10-20); CALCIUM 8.7 mg/dl (8.5-10.1); CREATININE 0.92 mg/dl (0.60-1.20); MAGNESIUM 2.4 mg/dl (1.8-2.4); POTASSIUM 4.4 mmol/L (3.5-5.1)
[2016-07-29 07:08] VITALS: PULSE 89; O2SAT 94
[2016-07-29] MEDS: CHOLECALCIFEROL 1000 INTER.UNIT TAB PO SCH (08:02)
[2016-07-29] MEDS: HYDROPHOR OINT 454 GM JAR EXT SCH ×2 (08:02→20:25)
[2016-07-29] MEDS: FLUTICASONE/SALMETEROL (ADVAIR) 500/50 INH 14 PUFF INH SCH ×2 (08:02→20:11)
[2016-07-29] MEDS: FERROUS SULFATE 325 MG TAB PO SCH ×2 (08:03→16:31)
[2016-07-29] MEDS: CARBIDOPA/LEVODOPA 25/100MG EXT REL TAB PO SCH ×4 (08:03→20:26)
[2016-07-29] MEDS: METOPROLOL TARTRATE 25 MG TAB PO SCH ×2 (08:04→20:21)
[2016-07-29] MEDS: PANTOprazole SOD 40 MG TAB PO SCH ×2 (08:04→20:23)
[2016-07-29] MEDS: DOCUSATE SODIUM 100 MG CAP PO SCH ×2 (08:06→20:00)
[2016-07-29 08:32] VITALS: BP 140/90; PULSE 86; TEMP 37.1; O2SAT 95
[2016-07-29] MEDS: GUAIFENESIN 600 MG TABCR PO SCH ×2 (08:51→20:19)
--- NOTE | 2016-07-29 12:15 | Hospitalist Progress Note ---
Hospitalist Progress Note Date of Service Jul 29, 2016. Subjective Pt evaluation today including: conversation w/ patient, physical exam, chart review, lab review, conversation w/ chain sales consultant (ID), review of inpatient medication list Pt feeling well, minimal cough and sputum production, no OSB, no CP, RLS much better after restarting home Requip yesterday Constitutional: No fever Respiratory: + cough, + sputum Cardiovascular: No chest pain Abdomen: No pain All Other Systems: Reviewed and Negative Objective Vital Signs Date Time Temp Pulse Resp B/P Pulse Ox O2 Delivery O2 Flow Rate FiO2 07/29/16 11:50 Room Air 07/29/16 08:32 37.1 86 20 140/90 95 Room Air 07/29/16 07:08 89 14 94 Room Air 07/29/16 00:30 Room Air 07/28/16 23:03 36.9 103 18 119/77 96 Room Air 07/28/16 22:00 Room Air 07/28/16 19:02 89 14 93 Room Air 07/28/16 15:33 Room Air 07/28/16 13:49 90 12 93 Room Air Physical Exam General Appearance: WD/WN, no apparent distress Eyes: normal inspection, sclerae normal Respiratory/Chest: no respiratory distress, no accessory muscle use, + crackles (at lower lung ramírez bilat) Cardiovascular: regular rate, rhythm, no edema, no gallop, no murmur Abdomen: normal bowel sounds, non tender, soft Extremities: no calf tenderness 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: alert, + pertinent finding (mildly anxious) Skin: warm/dry, + pertinent finding (diffuse dry, shiny skin with pigmented macules diffusely) Laboratory Results Last 24 Hours Test 07/29/16 05:27 White Blood Count 7.10 K/uL Red Blood Count 3.81 M/uL Hemoglobin 12.0 g/dL Hematocrit 35.6 % Mean Corpuscular Volume 93.4 fL Mean Corpuscular Hemoglobin 31.5 pg Mean Corpuscular Hemoglobin Concent 33.7 g/dl Platelet Count 395 K/uL Mean Platelet Volume 8.5 fL Neutrophils (%) (Auto) 77.3 % Lymphocytes (%) (Auto) 13.4 % Monocytes (%) (Auto) 9.2 % Eosinophils (%) (Auto) 0.0 % Basophils (%) (Auto) 0.0 % Neutrophils # (Auto) 5.49 K/uL Lymphocytes # (Auto) 0.95 K/uL Monocytes # (Auto) 0.65 K/uL Eosinophils # (Auto) 0.00 K/uL Basophils # (Auto) 0.00 K/uL RDW Standard Deviation 48.9 fL RDW Coefficient of Variation 14.3 % Immature Granulocyte % (Auto) 0.1 % Immature Granulocyte # (Auto) 0.01 K/uL Sodium Level 142 mmol/L Potassium Level 4.4 mmol/L Chloride Level 105 mmol/L Carbon Dioxide Level 29 mmol/L Anion Gap 8.0 mmol/L Blood Urea Nitrogen 27 mg/dl Creatinine 0.92 mg/dl Est Creatinine Clear Calc Drug Dose 37.9 ml/min Estimated GFR () 67.7 Estimated GFR (Non- 58.4 BUN/Creatinine Ratio 29.4 Random Glucose 97 mg/dl Calcium Level 8.7 mg/dl Magnesium Level 2.4 mg/dl Assessment and Plan The patient is an 81-year-old female who presents to the emergency department with symptoms of fatigue, difficulty walking even with walker, pain in her left knee and hip with history of fall approximately 2 weeks ago, with concerns of patient and family about ability stay alone at home. She does note a cough productive of yellow sputum. She does have history of Parkinson's disease which also affects her ambulation. The family is concerned about their ability to take care of her at home if she does not improve. Found to have LLL and lingular PNA on CT Chest on admission. CAP: LLL, lingula on Chest CT: 1. Mild groundglass opacity within the lingula and left lower lobe. Appearance favors atelectasis. An infectious process could appear similar but is considered less likely. 2. No thoracic lymphadenopathy. 3. 5 cm water attenuation abnormality overlying the anterior aspect of the right acromioclavicular joint. This is partially imaged on this unenhanced exam. This likely reflects a cyst and may be related to arthritis of the right shoulder. This could be correlated with clinical evidence of stability. - Influenza negative - U/A negative -clinically improved on Rocpehin and Azithro BCxs with coag neg Staph 1/2 bottles, likely contaminant but awaiting final ID to see if Lugdunensis or not. - continue Ceftriaxone 1 g IV daily, Azithromycin 500 mg IV daily, taper down Solu-Medrol for h/o asthma, Stopped Vanco as coag neg Staph in BCx -will switch to po Ceftin to finish 10 day course and po Azithro to finish 5 day course upon discharge; if BCxs come back with Lugdunensis then will need 14 days Ceftin -continue Guaifenesin extended release 600 mg by mouth twice a day - Xopenex with Atrovent nebulizer to use every 6 hours while awake and every 2 hours when necessary. Continue montelukast sodium 10 mg by mouth daily and Ventolin HFA and Advair discus. - Blood cultures repeated 07/28 and NGTD, will follow - Follow CBC and PRP -will need f/u CXR in 4-6 weeks to ensure resolution Hypertension/nonspecific EKG changes, sinus tachycardia--all improved with starting metoprolol - Trend cardiac enzymes- negative -repeat ECG with persistent lateral lead TWIs but asymptomatic, troponin neg x 2 --> -continue metoprolol 12.5mg po bid Parkinson's, RLS: -Continue Carbidopa levodopa 25/100 (home dose is actually 1.5 tabs qid) -continue Requip for RLS (was on at home despite not being on home med rec here ) -continue FeSO4 tabs from home for RLS vs anemia (was on at home as well) -follows with Dr. Loyd of Neuro Atopic Dermatitis: Aquaphor to skin for severe atopic dermatitis which does predispose her for skin infections Hypercholesterolemia: continue Mevacor 40 mg by mouth daily. GERD: continue Pantoprazole 40 mg by mouth twice a day. Depression: continue Venlafaxine ER but increase to 75mg as is home dose Proph- Lovenox Dispo: Discharge to [facility] once medically stable (patient accepted)- probably tomorrow as no bed available today
[2016-07-29] MEDS: ROPINIROLE HCL 0.25 MG TAB PO SCH (13:14)
[2016-07-29 14:09] VITALS: PULSE 89; O2SAT 94
--- NOTE | 2016-07-29 14:14 | Infectious Disease Progress Nt ---
Progress Note Date of Service Jul 29, 2016. Subjective Pt evaluation today including: conversation w/ patient, physical exam, chart review, lab review, review of studies, conversation w/ salon sales consultant, review of inpatient medication list Feeling better today. Less cough. No fever. No other new complaints. Tolerating Abx. All Other Systems: Reviewed and Negative Medications Current Inpatient Medications Medications (Trade) Dose Ordered Sig/Joceline Route Start Time Stop Time Status Last Admin Dose Admin Acetaminophen (Tylenol Tab) 650 mg Q4H PRN PO 07/26/16 16:30 08/25/16 16:29 Zolpidem Tartrate (Ambien Tab) 5 mg HSZ PRN PO 07/26/16 16:30 08/25/16 16:29 07/26/16 23:39 5 MG Hydroxyzine HCl (Vistaril Tab) 25 mg TID PRN PO 07/26/16 16:30 08/25/16 16:29 07/27/16 21:26 25 MG Montelukast Sodium (Singulair Tab) 10 mg PM PO 07/26/16 21:00 08/25/16 20:59 07/28/16 20:18 10 MG Pantoprazole Sodium (Protonix Tab) 40 mg BID PO 07/26/16 20:00 08/25/16 20:59 07/29/16 08:04 40 MG Lovastatin (Mevacor Tab) 40 mg DAILY@17 PO 07/26/16 17:00 08/25/16 16:59 07/28/16 16:20 40 MG Lorazepam (Ativan Inj) 0.5 mg Q4H PRN IV 07/26/16 16:30 08/25/16 16:29 07/27/16 08:19 0.5 MG Magnesium Hydroxide (Milk Of Magnesia Susp) 30 ml Q6H PRN PO 07/26/16 16:30 08/25/16 16:29 Bisacodyl (Dulcolax Supp) [address] 07/26/16 16:30 08/25/16 16:29 Al Hydrox/Mg Hydrox/ Simethicone 15 ml 15 ml Q4H PRN PO 07/26/16 16:30 08/25/16 16:29 07/28/16 19:19 15 ML Promethazine HCl/ Sodium Chloride (Phenergan Inj/ Nss 50ml) 50.5 ml @ 202 mls/hr Q4H PRN IV 07/26/16 16:30 08/25/16 16:29 Ondansetron HCl (Zofran Inj) 4 mg Q6H PRN IV 07/26/16 16:30 08/25/16 16:29 Docusate Sodium (coLACE CAP) 100 mg BID PO 07/26/16 20:00 08/25/16 20:59 07/29/16 08:06 100 MG Morphine Sulfate 2 mg 2 mg Q2H PRN IV 07/26/16 16:30 08/09/16 16:29 Ceftriaxone Sodium/Dextrose (Rocephin Inj/ Dextrose Add-Sutter 50ML) 50 ml @ 100 mls/hr Q24H IV 07/26/16 21:00 08/02/16 20:59 07/28/16 20:18 100 MLS/HR Guaifenesin 600 mg 600 mg Q12 PO 07/26/16 21:00 08/25/16 20:59 07/29/16 08:51 600 MG Azithromycin/ Dextrose (Zithromax IV/D5 250ml) 255 ml @ 125 mls/hr DAILY@2200 IV 07/26/16 22:00 08/02/16 21:59 07/28/16 22:23 125 MLS/HR Ipratropium Mazon (Atrovent 0.02% 0.5MG/2.5ML Neb) 0.5 mg Q6R INH 07/26/16 21:00 08/25/16 20:59 07/29/16 07:08 0.5 MG Levalbuterol (Xopenex 1.25MG/ 0.5ML Neb) 1.25 mg Q6R INH 07/26/16 21:00 08/25/16 20:59 07/29/16 14:08 1.25 MG Ipratropium Mazon (Atrovent 0.02% 0.5MG/2.5ML Neb) 0.5 mg Q2H PRN INH 07/26/16 20:45 08/25/16 20:44 Levalbuterol (Xopenex 1.25MG/ 0.5ML Neb) 1.25 mg Q2H PRN INH 07/26/16 20:45 3/16/17 20:44 Salmeterol Xinafoate/ Fluticasone (Advair Diskus 500/50 Inh) 1 puff BID INH 07/27/16 08:00 08/26/16 07:59 07/29/16 08:02 1 PUFF Albuterol (Ventolin Hfa Inhaler) 2 puffs Q6H PRN INH 07/27/16 14:00 08/26/16 13:59 Emollient Ointment (Hydrophor Oint) 1 gm BID EXT 07/27/16 20:00 08/26/16 19:59 07/29/16 08:02 1 GM Enoxaparin Sodium 40 mg 40 mg DAILY@1700 SQ 07/27/16 17:00 08/26/16 16:59 07/28/16 16:19 40 MG Lorazepam/Syringe (Ativan Inj/ Syringe) 1 ml @ 1 mls/min Q4H PRN IV 07/28/16 01:30 08/27/16 01:29 07/28/16 01:28 1 MLS/MIN Ropinirole HCl (Requip Tab) 1 mg HS PO 07/28/16 21:00 08/27/16 20:59 07/28/16 20:09 1 MG Venlafaxine HCl (effeXOR EXTENDED REL CAP) 75 mg QPM PO 07/28/16 21:00 08/27/16 20:59 07/28/16 20:09 75 MG Ferrous Sulfate (Feosol Tab) 325 mg BIDM PO 07/28/16 17:00 08/27/16 16:59 07/29/16 08:03 325 MG Fluocinonide (Lidex Crm) 1 appln BID PRN EXT 07/28/16 12:15 08/27/16 12:14 Cholecalciferol (Vitamin D Tab) 2,000 inter.unit QAM PO 07/29/16 08:00 08/28/16 07:59 07/29/16 08:02 2,000 INTER.UNIT Carbidopa/Levodopa (Sinemet Cr 25/ 100MG Tab) 1.5 tab QID PO 07/28/16 17:00 08/27/16 16:59 07/29/16 13:14 1.5 TAB Metoprolol Tartrate (Lopressor Tab) 12.5 mg BID PO 07/28/16 20:00 08/27/16 19:59 07/29/16 08:04 12.5 MG Ropinirole HCl (Requip Tab) 0.5 mg DAILY@1400 PO 07/28/16 14:00 08/27/16 13:59 07/29/16 13:14 0.5 MG Prednisone (PredniSONE TAB) 40 mg DAILY PO 07/30/16 08:00 08/29/16 07:59 Objective Vital Signs Date Time Temp Pulse Resp B/P Pulse Ox O2 Delivery O2 Flow Rate FiO2 07/29/16 14:09 89 14 94 Room Air 07/29/16 11:50 Room Air 07/29/16 08:32 37.1 86 20 140/90 95 Room Air 07/29/16 07:08 89 14 94 Room Air 07/29/16 00:30 Room Air 07/28/16 23:03 36.9 103 18 119/77 96 Room Air 07/28/16 22:00 Room Air 07/28/16 19:02 89 14 93 Room Air 07/28/16 15:33 Room Air Physical Exam General Appearance: WD/WN, no apparent distress Eyes: normal inspection, EOMI, sclerae normal ENT: normal ENT inspection, pharynx normal Neck: supple, no adenopathy, trachea midline Respiratory/Chest: chest non-tender, no respiratory distress, no accessory muscle use, + rales Cardiovascular: regular rate, rhythm, no gallop, no murmur Abdomen: normal bowel sounds, non tender, soft, no organomegaly Extremities: non-tender, no calf tenderness 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: alert, oriented x 3 Skin: normal color, no rash Lymphatic: no adenopathy Laboratory Results Last 24 Hours Test 07/29/16 05:27 White Blood Count 7.10 K/uL Red Blood Count 3.81 M/uL Hemoglobin 12.0 g/dL Hematocrit 35.6 % Mean Corpuscular Volume 93.4 fL Mean Corpuscular Hemoglobin 31.5 pg Mean Corpuscular Hemoglobin Concent 33.7 g/dl Platelet Count 395 K/uL Mean Platelet Volume 8.5 fL Neutrophils (%) (Auto) 77.3 % Lymphocytes (%) (Auto) 13.4 % Monocytes (%) (Auto) 9.2 % Eosinophils (%) (Auto) 0.0 % Basophils (%) (Auto) 0.0 % Neutrophils # (Auto) 5.49 K/uL Lymphocytes # (Auto) 0.95 K/uL Monocytes # (Auto) 0.65 K/uL Eosinophils # (Auto) 0.00 K/uL Basophils # (Auto) 0.00 K/uL RDW Standard Deviation 48.9 fL RDW Coefficient of Variation 14.3 % Immature Granulocyte % (Auto) 0.1 % Immature Granulocyte # (Auto) 0.01 K/uL Sodium Level 142 mmol/L Potassium Level 4.4 mmol/L Chloride Level 105 mmol/L Carbon Dioxide Level 29 mmol/L Anion Gap 8.0 mmol/L Blood Urea Nitrogen 27 mg/dl Creatinine 0.92 mg/dl Est Creatinine Clear Calc Drug Dose 37.9 ml/min Estimated GFR () 67.7 Estimated GFR (Non- 58.4 BUN/Creatinine Ratio 29.4 Random Glucose 97 mg/dl Calcium Level 8.7 mg/dl Magnesium Level 2.4 mg/dl Assessment and Plan 81-year-old female admitted with progressive weakness and mental status changes , now found to have positive blood culture for coag-negative Staph, but only single set. Likely contaminant and follow-up cultures negative to date. Vancomycin discontinued and considering transition to oral Rx to complete course for pneumonia.
[2016-07-29 15:05] VITALS: BP 124/80; PULSE 99; TEMP 36.8; O2SAT 97
[2016-07-29] MEDS: LOVASTATIN 20 MG TAB PO SCH (16:33)
[2016-07-29] MEDS: ENOXAPARIN 40 MG/0.4 ML SYR SQ SCH (16:33)
[2016-07-29 19:40] VITALS: PULSE 80; O2SAT 94
[2016-07-29 20:00] VITALS: O2SAT 99
[2016-07-29] MEDS: CEFTRIAXONE SOD INJ 1 GM in DEXTROSE 5% ADD-VANTAGE 50ML 50 ML IV SCH (20:10)
[2016-07-29] MEDS: AZITHROMYCIN IV 500 MG in DEXTROSE 5% 250ML 250 ML IV SCH (20:18)
[2016-07-29] MEDS: hydrOXYzine HCL 25 MG TAB PO PRN (20:19)
[2016-07-29] MEDS: MONTELUKAST SOD 10 MG TAB PO SCH (20:21)
[2016-07-29] MEDS: VENLAFAXINE HCL XR 75 MG CAPXR PO SCH (20:21)
[2016-07-29] MEDS: ROPINIROLE HCL 1 MG TAB PO SCH (20:22)
[2016-07-30] VITALS (10 sets, daily range): BP systolic 110–175; BP diastolic 64–99; PULSE 88–101; TEMP 36.3–37.3; O2SAT 92–99
[2016-07-30] MEDS: LEVALBUTEROL 1.25MG/0.5ML NEB INH SCH ×4 (02:13→21:00)
[2016-07-30] MEDS: IPRATROPIUM BROMIDE NEB SOLN 0.02% 2.5 ML VIAL INH SCH ×4 (02:13→21:00)
[2016-07-30 06:22] LABS: BASO % 0.2 %; BASO ABS # 0.01 K/uL (0-0.2); COMPLETE YES; EOS % 1.7 %; IG% 0.7 %; LYMPH ABS # 1.71 K/uL (1.2-3.4); MEAN CELL VOLUME 95.2 fL (80-100); MEAN CORPUSCULAR HGB CONC 33.6 g/dl (32-36); MEAN PLATELET VOLUME 8.8 fL (7.4-10.4); MONO % 15.1 %; NEUT % 53.3 %; PLATELET COUNT 371 K/uL (130-400); RED BLOOD COUNT 3.78 M/uL (4.2-5.4); WHITE BLOOD COUNT 5.89 K/uL (4.8-10.8)
[2016-07-30 06:49] LABS: CALCIUM 8.6 mg/dl (8.5-10.1); CREATININE 0.88 mg/dl (0.60-1.20); MAGNESIUM 2.3 mg/dl (1.8-2.4); POTASSIUM 4.1 mmol/L (3.5-5.1)
[2016-07-30] MEDS: CHOLECALCIFEROL 1000 INTER.UNIT TAB PO SCH (08:00)
[2016-07-30] MEDS: DOCUSATE SODIUM 100 MG CAP PO SCH ×2 (08:00→20:27)
[2016-07-30] MEDS: METOPROLOL TARTRATE 25 MG TAB PO SCH ×2 (08:00→20:28)
[2016-07-30] MEDS: FERROUS SULFATE 325 MG TAB PO SCH ×2 (08:01→17:31)
[2016-07-30] MEDS: ROPINIROLE HCL 0.25 MG TAB PO SCH (08:01)
[2016-07-30] MEDS: CARBIDOPA/LEVODOPA 25/100MG EXT REL TAB PO SCH ×4 (08:02→20:29)
[2016-07-30] MEDS: PANTOprazole SOD 40 MG TAB PO SCH ×2 (08:02→20:00)
[2016-07-30] MEDS: HYDROPHOR OINT 454 GM JAR EXT SCH ×2 (08:03→20:27)
[2016-07-30] MEDS: FLUTICASONE/SALMETEROL (ADVAIR) 500/50 INH 14 PUFF INH SCH ×2 (08:03→20:26)
[2016-07-30] MEDS: GUAIFENESIN 600 MG TABCR PO SCH ×2 (08:04→20:30)
[2016-07-30] MEDS: ALUMINUM/MAGNESIUM/SIMETH (MAALOX MAX) 30 ML UDC PO PRN ×2 (08:34→12:34)
[2016-07-30] MEDS ORDERED: VANCOMYCIN TROUGH SCH (11:30)
[2016-07-30] MEDS: LOVASTATIN 20 MG TAB PO SCH (17:31)
[2016-07-30] MEDS: hydrOXYzine HCL 25 MG TAB PO PRN (17:31)
[2016-07-30] MEDS: ENOXAPARIN 40 MG/0.4 ML SYR SQ SCH (17:31)
[2016-07-30] MEDS: CEFTRIAXONE SOD INJ 1 GM in DEXTROSE 5% ADD-VANTAGE 50ML 50 ML IV SCH (20:26)
[2016-07-30] MEDS: LORAZEPAM INJ 0.5 MG in SYRINGE 0.75 ML IV PRN (20:27)
[2016-07-30] MEDS: VENLAFAXINE HCL XR 75 MG CAPXR PO SCH (20:30)
[2016-07-30] MEDS: MONTELUKAST SOD 10 MG TAB PO SCH (20:31)
[2016-07-30] MEDS: ROPINIROLE HCL 1 MG TAB PO SCH (20:31)
[2016-07-30] MEDS: AZITHROMYCIN IV 500 MG in DEXTROSE 5% 250ML 250 ML IV SCH (20:32)
--- NOTE | 2016-07-30 21:35 | Hospitalist Progress Note ---
Hospitalist Progress Note Date of Service Jul 30, 2016. Subjective Pt evaluation today including: conversation w/ patient, physical exam, chart review, lab review, review of inpatient medication list Voiding: no voiding problems Pt very anxious about going to [facility] tomorrow. Says she feels like crying. But understands she needs rehab so she doesn't have another fall. Cough much improved. Constitutional: No fever Respiratory: + cough Cardiovascular: No chest pain Abdomen: No pain Neurologic: + problem reported (restless legs) Skin: No rash Objective Vital Signs Date Time Temp Pulse Resp B/P Pulse Ox O2 Delivery O2 Flow Rate FiO2 07/30/16 18:42 Room Air 07/30/16 15:05 36.3 101 20 110/64 94 07/30/16 13:36 90 14 92 Room Air 07/30/16 10:11 Room Air 07/30/16 07:44 88 14 92 Room Air 07/30/16 07:33 37.3 97 16 175/99 94 Room Air 07/30/16 02:13 94 14 92 Room Air 07/30/16 00:13 37.0 96 20 121/77 95 Room Air 07/30/16 00:00 99 Room Air Physical Exam General Appearance: WD/WN, no apparent distress Eyes: sclerae normal Respiratory/Chest: no respiratory distress, no accessory muscle use, + crackles (in lef middle lung field) Cardiovascular: regular rate, rhythm, no edema, no murmur Abdomen: normal bowel sounds, non tender, soft Extremities: no pedal edema, no calf tenderness 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: alert, + pertinent finding (anxious) Skin: + pertinent finding (very dry skin, macular pigmented lesions diffusely) Laboratory Results Last 24 Hours Test 07/30/16 05:45 White Blood Count 5.89 K/uL Red Blood Count 3.78 M/uL Hemoglobin 12.1 g/dL Hematocrit 36.0 % Mean Corpuscular Volume 95.2 fL Mean Corpuscular Hemoglobin 32.0 pg Mean Corpuscular Hemoglobin Concent 33.6 g/dl Platelet Count 371 K/uL Mean Platelet Volume 8.8 fL Neutrophils (%) (Auto) 53.3 % Lymphocytes (%) (Auto) 29.0 % Monocytes (%) (Auto) 15.1 % Eosinophils (%) (Auto) 1.7 % Basophils (%) (Auto) 0.2 % Neutrophils # (Auto) 3.14 K/uL Lymphocytes # (Auto) 1.71 K/uL Monocytes # (Auto) 0.89 K/uL Eosinophils # (Auto) 0.10 K/uL Basophils # (Auto) 0.01 K/uL RDW Standard Deviation 49.2 fL RDW Coefficient of Variation 14.2 % Immature Granulocyte % (Auto) 0.7 % Immature Granulocyte # (Auto) 0.04 K/uL Sodium Level 141 mmol/L Potassium Level 4.1 mmol/L Chloride Level 104 mmol/L Carbon Dioxide Level 25 mmol/L Anion Gap 12.0 mmol/L Blood Urea Nitrogen 29 mg/dl Creatinine 0.88 mg/dl Est Creatinine Clear Calc Drug Dose 39.7 ml/min Estimated GFR () 71.4 Estimated GFR (Non- 61.6 BUN/Creatinine Ratio 33.0 Random Glucose 102 mg/dl Calcium Level 8.6 mg/dl Magnesium Level 2.3 mg/dl Assessment and Plan The patient is an 81-year-old female who presents to the emergency department with symptoms of fatigue, difficulty walking even with walker, pain in her left knee and hip with history of fall approximately 2 weeks ago, with concerns of patient and family about ability stay alone at home. She does note a cough productive of yellow sputum. She does have history of Parkinson's disease which also affects her ambulation. The family is concerned about their ability to take care of her at home if she does not improve. Found to have LLL and lingular PNA on CT Chest on admission. CAP: LLL, lingula on Chest CT: 1. Mild groundglass opacity within the lingula and left lower lobe. Appearance favors atelectasis. An infectious process could appear similar but is considered less likely. 2. No thoracic lymphadenopathy. 3. 5 cm water attenuation abnormality overlying the anterior aspect of the right acromioclavicular joint. This is partially imaged on this unenhanced exam. This likely reflects a cyst and may be related to arthritis of the right shoulder. This could be correlated with clinical evidence of stability. - Influenza negative - U/A negative -clinically improved on Rocpehin and Azithro BCxs with coag neg Staph not Ludunensis 1/2 bottles, is a contaminant. Repeat BCx with no growth to date - continue Ceftriaxone 1 g IV daily, Azithromycin 500 mg IV daily, taper down Solu-Medrol for h/o asthma, Stopped Vanco as coag neg Radhah in BCx -will switch to po Ceftin to finish 10 day course and po Azithro to finish 5 day course upon discharge -continue Guaifenesin extended release 600 mg by mouth twice a day - Xopenex with Atrovent nebulizer to use every 6 hours while awake and every 2 hours when necessary. Continue montelukast sodium 10 mg by mouth daily and Ventolin HFA and Advair discus. - Blood cultures repeated 07/28 and NGTD, will follow -will need f/u CXR in 4-6 weeks to ensure resolution Hypertension/nonspecific EKG changes, sinus tachycardia--all improved with starting metoprolol but exacerbated today by anxiety - Trend cardiac enzymes- negative -repeat ECG with persistent lateral lead TWIs but asymptomatic, troponin neg x 2 --> review of ECGs going back many years all similar appearing ST an TW changes lateral leads -stress ECHO in 2009 is normal per outpt record review -increase metoprolol to 25mg po bid Parkinson's, RLS: -Continue Carbidopa levodopa 25/100 (home dose is actually 1.5 tabs qid) -continue Requip for RLS (was on at home despite not being on home med rec here ) -continue FeSO4 tabs from home for RLS vs anemia (was on at home as well) -follows with Dr. Loyd of Neuro Atopic Dermatitis: Aquaphor to skin for severe atopic dermatitis which does predispose her for skin infections Hypercholesterolemia: continue Mevacor 40 mg by mouth daily. GERD: continue Pantoprazole 40 mg by mouth twice a day. Depression: continue Venlafaxine ER but increase to 75mg as is home dose Proph- Lovenox Dispo: Discharge to [facility] once medically stable (patient accepted)- probably tomorrow as no bed available today
[2016-07-31] VITALS: O2SAT 99
[2016-07-31] MEDS: IPRATROPIUM BROMIDE NEB SOLN 0.02% 2.5 ML VIAL INH SCH ×3 (02:44→14:45)
[2016-07-31] MEDS: LEVALBUTEROL 1.25MG/0.5ML NEB INH SCH ×3 (02:44→14:45)
[2016-07-31 02:45] VITALS: PULSE 91; O2SAT 93
[2016-07-31 07:15] VITALS: PULSE 93; O2SAT 92
[2016-07-31 07:30] VITALS: BP 155/88; PULSE 93; TEMP 37.1; O2SAT 95
[2016-07-31] MEDS: METOPROLOL TARTRATE 25 MG TAB PO SCH (07:33)
[2016-07-31] MEDS: DOCUSATE SODIUM 100 MG CAP PO SCH (07:34)
[2016-07-31] MEDS: FERROUS SULFATE 325 MG TAB PO SCH (07:34)
[2016-07-31] MEDS: CARBIDOPA/LEVODOPA 25/100MG EXT REL TAB PO SCH ×2 (07:35→11:13)
[2016-07-31] MEDS: FLUTICASONE/SALMETEROL (ADVAIR) 500/50 INH 14 PUFF INH SCH (07:36)
[2016-07-31] MEDS: PANTOprazole SOD 40 MG TAB PO SCH (07:36)
[2016-07-31] MEDS: CHOLECALCIFEROL 1000 INTER.UNIT TAB PO SCH (07:36)
[2016-07-31] MEDS: HYDROPHOR OINT 454 GM JAR EXT SCH (07:37)
[2016-07-31] MEDS: GUAIFENESIN 600 MG TABCR PO SCH (07:50)
[2016-07-31] MEDS ORDERED: ATRINS INH (09:34)
[2016-07-31] MEDS ORDERED: VENL37.593 PO (09:34)
[2016-07-31] MEDS ORDERED: XPNINS1255 INH (09:34)
[2016-07-31] MEDS ORDERED: LPR25 PO (09:34)
[2016-07-31] MEDS ORDERED: FRRS300 PO (09:34)
[2016-07-31] MEDS ORDERED: RQP1 PO (09:34)
[2016-07-31] MEDS ORDERED: CEFU500T16 PO (09:34)
[2016-07-31] MEDS ORDERED: TYL325X PO (09:34)
[2016-07-31] MEDS ORDERED: CARB25TA PO (09:34)
[2016-07-31] MEDS ORDERED: [UNRECOGNIZED DRUG - OTHER] EXT (09:35)
[2016-07-31] MEDS ORDERED: GFNSR600 PO (09:35)
[2016-07-31] MEDS ORDERED: CLC100 PO (09:35)
[2016-07-31] MEDS ORDERED: VTMD1000 PO (09:35)
[2016-07-31] MEDS ORDERED: LDXCR60 EXT (09:35)
[2016-07-31] MEDS ORDERED: RQP25 PO (09:35)
[2016-07-31] MEDS ORDERED: LOVA40TA3 PO (09:51)
--- NOTE | 2016-07-31 09:55 | Discharge Instructions ---
Discharge Instructions Admission Reason for Admission: Pneumonia; Weakness Discharge Discharge Diagnosis / Problem: Pneumonia, fall,weakness Discharge Goals Goal(s): Improve disease control, Therapeutic intervention Activity Recommendations Activity Level: Assistance Required Therapies: Physical Therapy, Weight Bearing Status (Full), Occupational Therapy Shower/Bathe: no limitations . Additional Information Patient informed of condition: Yes Advance Directives: Yes DNR: No Level of Care: Acute Rehab Communicable Disease: No Prognosis: Stable Oxygen at (LPM): N/A Amado Catheter: No Instructions / Follow-Up Instructions / Follow-Up The patient is an 81-year-old female who presents to the emergency department with symptoms of fatigue, difficulty walking even with walker, pain in her left knee and hip with history of fall approximately 2 weeks ago, with concerns of patient and family about ability stay alone at home. She does note a cough productive of yellow sputum. She does have history of Parkinson's disease which also affects her ambulation. The family is concerned about their ability to take care of her at home if she does not improve. Found to have LLL and lingular PNA on CT Chest on admission. CAP: LLL, lingula on Chest CT: 1. Mild groundglass opacity within the lingula and left lower lobe. Appearance favors atelectasis. An infectious process could appear similar but is considered less likely. 2. No thoracic lymphadenopathy. 3. 5 cm water attenuation abnormality overlying the anterior aspect of the right acromioclavicular joint. This is partially imaged on this unenhanced exam. This likely reflects a cyst and may be related to arthritis of the right shoulder. This could be correlated with clinical evidence of stability. PNA symptoms much improved, afebrile and minimal cough, no O2 requirement. Has a long h/o asthma. - Influenza negative - U/A negative -clinically improved on Rocpehin and Azithro BCxs with coag neg Staph not Ludunensis 1/2 bottles, is a contaminant. Repeat BCx from 07/28/16 with no growth to date - received Solu-Medrol for h/o asthma x 3 days but stopped due to exacerbation of sinus tachycardia and significant anxiety, Stopped Vanco as coag neg Staph in BCx -will switch to po Ceftin to finish 10 day course and has already completed Azithro 5 day course in hospital so will be discontinued -continue Guaifenesin extended release 600 mg by mouth twice a day - Xopenex and Atrovent nebulizer to use every 6 hours while awake -Continue montelukast sodium 10 mg by mouth daily and Ventolin HFA and Advair discus. - Blood cultures repeated 07/28 and NGTD, will follow -will need f/u CXR in 4-6 weeks to ensure resolution Hypertension/nonspecific EKG changes, sinus tachycardia--all improved with starting metoprolol but exacerbated by anxiety - Trended cardiac enzymes- all negative -repeat ECG with persistent lateral lead TWIs but asymptomatic, troponin neg x 2 --> review of ECGs going back many years all similar appearing ST an TW changes lateral leads -stress ECHO in 2009 is normal per outpt record review -increased metoprolol to 25mg po bid and improved H/o Carotid artery stenosis-60% on right as per outpt notes from 2013 -asymptomatic -continue statin -is not on ASA presumably due to significant GI issues/GERD Parkinson's, RLS, MCI: -Continue Carbidopa levodopa 25/100 (home dose is actually 1.5 tabs qid) -continue Requip for RLS (was on at home despite not being on home med rec here ) -continue FeSO4 tabs from home for RLS vs anemia (was on at home as well) -follows with Dr. Loyd of Neuro Chronic anemia- improved with iron supplementation as an outpatient. Follws with hematology as per outpt record. PCP has had discussion about repeating endoscopy. Last GI endoscopy done January 2014. She probably is having intermittent GI bleeding from AVMs. However, she is maintaining blood count with iron supplementation. Because she has multiple comorbidities patient and her daughter both agreed to hold off on further endoscopy as outpt unless hemoglobin cannot be maintained with iron supplementation. Hgb in hospital is stable and normal at 12 -continue FeSO4 supplementation -follow CBC occasionally GERD- EGD January 2014 showed hiatal hernia, and evidence of chronic acid suppression. -continue PPI Dyslipidemia -She is on lovastatin for dyslipidemia, with diabetes and vascular disease. DMII-mild, diet controlled Osteoporosis with minimum T score -3.2 involving forearm, on DEXA scan August 2015. She is on calcium, vitamin D. She took one dose of Actonel and had transient GI upset. She is on venlafaxine for depression with anxiety. Follows with Urology for microscopic hematuria. She has a large cystic mass right shoulder and was evaluated by Dr. Cross. Aspirated several times with recurrence. Surgery not recommended. Davonte Bonnet Syndrome, Legally blind- supportive care Atopic Dermatitis: Aquaphor to skin for severe atopic dermatitis which does predispose her for remote h/o skin infections Hypercholesterolemia: continue Mevacor 40 mg by mouth daily. Proph- Lovenox Dispo: Discharge to [facility] Current Hospital Diet Patient's current hospital diet: Regular Diet Discharge Diet Recommended Diet: Diabetes Type 2 Diet Procedures Procedures Performed: CT Chest CT Head Left knee xray Pelvis xray Chest xray Pending Studies Studies pending at discharge: yes List of pending studies: Final blood culture from 07/28/16 Physician Orders On Transfer Special Precautions: Fall precautions Dressing Changes: None IV Therapy: None Vital Signs: Routine Weigh: Routine Additional Orders: Follow up with PCP within 1 week after discharge Needs repeat chest xray in 4-6 weeks to ensure resolution of PNA POLST Discussion: Not Applicable Laboratory Results Hemoglobin A1c Test 07/20/16 13:44 Range/Units Estimated Average Glucose 126 mg/dl Hemoglobin A1c 6.0 H 4.5-5.6 % Medical Emergencies . Who to Call and When: Medical Emergencies: If at any time you feel your situation is an emergency, please call 911 immediately. . Non-Emergent Contact Non-Emergency issues call your: Primary Care Provider . . "Provider Documentation" section prepared by Shanika Block. Core Measure Problem Core Measures: None
[2016-07-31 10:22] VITALS: BP 155/88; PULSE 93; TEMP 37.1; O2SAT 95
[2016-07-31] MEDS: ROPINIROLE HCL 0.25 MG TAB PO SCH (13:18)
[2016-07-31 14:15] VITALS: PULSE 93; O2SAT 94
--- NOTE | 2016-07-31 20:40 | Discharge Summary ---
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 Pain. COMPARISON: 07/17/2016 DISCUSSION: The bones and joint spaces appear intact. There is no evidence of fracture, dislocation or bony disease. Moderate degenerative change. No evidence for acetabular protrusion. IMPRESSION: Moderate degenerative change. No acute bony abnormality. No change from the prior study. LEFT KNEE 1 OR 2 VIEWS ROUTINE CLINICAL HISTORY: fall trauma. Pain. COMPARISON: None. DISCUSSION: Generalized osteopenia. No evidence for fracture. Cortical margins are intact. General change medial joint compartment. There is no evidence for soft tissue swelling. IMPRESSION: Degenerative change. Osteopenia. No acute bony abnormality. Degenerative change medial joint compartment SINGLE VIEW CHEST CLINICAL HISTORY: Sepsis. FINDINGS: An AP, portable, upright chest radiograph is compared to study dated 02/08/2015. The heart is top normal for projection. There is atherosclerotic calcification of the thoracic aorta. The pulmonary vascular is noncongested. Chronic interstitial thickening is similar to previous. No airspace consolidation, large pleural effusion, or pneumothorax is seen. The skeletal structures are osteopenic. Degenerative change and mild scoliosis are noted in the thoracic spine. Advanced arthritic change is seen in the right shoulder. IMPRESSION: No acute cardiopulmonary abnormality HEAD CT NONCONTRAST CT DOSE: 537.48 mGy.cm HISTORY: Mental status change confusion TECHNIQUE: Multiaxial CT images of the head were performed without the use of intravenous contrast. Comparison: 02/08/2015 Findings: The paranasal sinuses and mastoid air cells are clear. Chronic small vessel change. Ventricular system is midline. No acute intracranial hemorrhage. No midline shift. Impression: Chronic and age-related change. No acute process. CT OF THE CHEST WITHOUT IV CONTRAST CLINICAL HISTORY: Productive cough. COMPARISON STUDY: Chest radiograph July 26, 2016 and February 08, 2015 TECHNIQUE: Axial images of the chest were obtained without IV contrast. Images were reviewed in the axial, sagittal, and coronal planes. IV contrast was not administered for this examination. FINDINGS: No enlarged axillary, mediastinal or hilar lymph nodes are present. 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 Note is made of a 5 cm water attenuation lesion overlying the anterior right acromioclavicular joint. This is partially imaged on this study. The size of the heart is at the upper limits of normal. There is no pericardial effusion. A small hiatal hernia is present. There is extensive coronary artery calcification. No pneumothorax or pleural effusion is present. The central airways are patent. There are mild groundglass opacities within the lingula and left lower lobe. Bony thorax and upper abdomen are unremarkable on this unenhanced exam IMPRESSION: 1. Mild groundglass opacity within the lingula and left lower lobe. Appearance favors atelectasis. An infectious process could appear similar but is considered less likely. 2. No thoracic lymphadenopathy. Consultations: None Medication Reconciliation New Medications: Cefuroxime Axetil (Ceftin) 500 Mg Tab 500 MG PO BID for 5 Days, #10 TAB Lovastatin (Mevacor) 40 Mg Tab 1 TAB PO DAILY for 30 Days, #30 TAB 5 Refills Acetaminophen (Tylenol) 325 Mg Tab 650 MG PO Q4H PRN for Pain or Fever for 30 Days, #240 TAB Cholecalciferol (Vitamin D3) 1,000 Inter.unit Tab 2000 INTER.UNIT PO QAM for 30 Days, TAB Docusate Sodium (Docusate Sodium) 100 Mg Cap 100 MG PO BID for 30 Days, CAP Emollient Ointment (Hydrophor) 454 Gm Oint 1 GM EXT BID for 30 Days Ferrous Sulfate (Ferrous Sulfate) 325 Mg Tab 325 MG PO BIDM for 30 Days, TAB Fluocinonide (Fluocinonide) 180 Appln/60 Gm Cr 1 APPLN EXT BID PRN for itching for 30 Days Guaifenesin Ext Rel (Mucinex Ext Rel) 600 Mg Tabcr 600 MG PO Q12 for 30 Days Ipratropium Hildreth (Ipratropium Hildreth) 0.5 Mg/2.5 Ml Nebu 0.5 MG INH Q6R for 30 Days Levalbuterol (Levalbuterol) 1.25 Mg/0.5 Ml Nebu 1.25 MG INH Q6R for 30 Days Metoprolol Tartrate (Lopressor) 25 Mg Tab 25 MG PO BID for 30 Days, TAB Ropinirole HCl (Ropinirole HCl) 1 Mg Tab 1 MG PO HS for 30 Days, TAB Ropinirole HCl (Ropinirole HCl) 0.25 Mg Tab 0.5 MG PO DAILY@1400 for 30 Days, TAB Changed Medications: Carbidopa-Levodopa (Sinemet Cr 25MG/100MG) 1 Tab Tab 1.5 TAB PO QID for 30 Days, TAB (Changed from: 1 TAB) Venlafaxine Hcl (Venlafaxine Extended Rel) 37.5 Mg Cap 75 MG PO QPM for 30 Days (Changed from: 37.5 MG; Removed Quantity) WITH DINNER Continued Medications: Albuterol Hfa (Ventolin Hfa) 200 Puffs/81013 Mcg Aers 2-4 PUFFS INH Q6H, #1 INHALER Fluticasone Prop/Salmeterol (Advair Diskus 500-50 Mcg/Dose) 14 Puff/1 Inhaler Aerp 1 PUFF INH BID Hydroxyzine Hcl (Atarax) 25 Mg Tab 25 MG PO TID PRN for Anxiety/Agitation, TAB Lovastatin (Mevacor) 40 Mg Tab 40 MG PO DAILY, 0 Refills Melatonin (Melatonin) 3 Mg Tab 3 MG PO HS PRN for Sleep Montelukast Sodium (Singulair) 10 Mg Tab 10 MG PO DAILY, TAB Pantoprazole (Protonix) 40 Mg Tab 40 MG PO BID, 0 Refills Discharge Exam Physical Exam General Appearance: WD/WN, no apparent distress Eyes: sclerae normal Respiratory/Chest: no respiratory distress, no accessory muscle use, + crackles (in left middle lung field) Cardiovascular: regular rate, rhythm, no edema, no murmur Abdomen: normal bowel sounds, non tender, soft Extremities: no pedal edema, no calf tenderness 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: alert, + pertinent finding (anxious) Skin: + pertinent finding (very dry skin, macular pigmented lesions diffusely) Review of Systems: Constitutional: No fever Eyes: + problem reported (blindness) ENT: No hearing loss Respiratory: + cough Cardiovascular: No chest pain Abdomen: No pain Musculoskeletal: No problem reported Genitourinary - Female: No problem reported Neurologic: + problem reported (restless legs) Psychiatric: + anxiety Endocrine: No problem reported Hematologic / Lymphatic: No problem reported Integumentary: No problem reported Hospital Course The patient is an 81-year-old female who presents to the emergency department with symptoms of fatigue, difficulty walking even with walker, pain in her left knee and hip with history of fall approximately 2 weeks ago, with concerns of patient and family about ability stay alone at home. She does note a cough productive of yellow sputum. She does have history of Parkinson's disease which also affects her ambulation. The family is concerned about their ability to take care of her at home if she does not improve. Found to have LLL and lingular PNA on CT Chest on admission. CAP: LLL, lingula on Chest CT: 1. Mild groundglass opacity within the lingula and left lower lobe. Appearance favors atelectasis. An infectious process could appear similar but is considered less likely. 2. No thoracic lymphadenopathy. 3. 5 cm water attenuation abnormality overlying the anterior aspect of the right acromioclavicular joint. This is partially imaged on this unenhanced exam. This likely reflects a cyst and may be related to arthritis of the right shoulder. This could be correlated with clinical evidence of stability. PNA symptoms much improved, afebrile and minimal cough, no O2 requirement. Has a long h/o asthma. - Influenza negative - U/A negative -clinically improved on Rocpehin and Azithro BCxs with coag neg Staph not Ludunensis / bottles, is a contaminant. Repeat BCx from 07/28/16 with no growth to date - received Solu-Medrol for h/o asthma x 3 days but stopped due to exacerbation of sinus tachycardia and significant anxiety, Stopped Vanco as coag neg Staph in BCx -will switch to po Ceftin to finish 10 day course and has already completed Azithro 5 day course in hospital so will be discontinued -continue Guaifenesin extended release 600 mg by mouth twice a day - Xopenex and Atrovent nebulizer to use every 6 hours while awake -Continue montelukast sodium 10 mg by mouth daily and Ventolin HFA and Advair discus. - Blood cultures repeated 07/28 and NGTD, will follow -will need f/u CXR in 4-6 weeks to ensure resolution Hypertension/nonspecific EKG changes, sinus tachycardia--all improved with starting metoprolol but exacerbated by anxiety - Trended cardiac enzymes- all negative -repeat ECG with persistent lateral lead TWIs but asymptomatic, troponin neg x 2 --> review of ECGs going back many years all similar appearing ST an TW changes lateral leads -stress ECHO in 2009 is normal per outpt record review -increased metoprolol to 25mg po bid and improved H/o Carotid artery stenosis-60% on right as per outpt notes from 2013 -asymptomatic -continue statin -is not on ASA presumably due to significant GI issues/GERD Parkinson's, RLS, MCI: -Continue Carbidopa levodopa 25/100 (home dose is actually 1.5 tabs qid) -continue Requip for RLS (was on at home despite not being on home med rec here ) -continue FeSO4 tabs from home for RLS vs anemia (was on at home as well) -follows with Dr. Loyd of Neuro Chronic anemia- improved with iron supplementation as an outpatient. Follws with hematology as per outpt record. PCP has had discussion about repeating endoscopy. Last GI endoscopy done January 2014. She probably is having intermittent GI bleeding from AVMs. However, she is maintaining blood count with iron supplementation. Because she has multiple comorbidities patient and her daughter both agreed to hold off on further endoscopy as outpt unless hemoglobin cannot be maintained with iron supplementation. Hgb in hospital is stable and normal at 12 -continue FeSO4 supplementation -follow CBC occasionally GERD- EGD January 2014 showed hiatal hernia, and evidence of chronic acid suppression. -continue PPI Dyslipidemia -She is on lovastatin for dyslipidemia, with diabetes and vascular disease. DMII-mild, diet controlled Osteoporosis with minimum T score -3.2 involving forearm, on DEXA scan August 2015. She is on calcium, vitamin D. She took one dose of Actonel and had transient GI upset. She is on venlafaxine for depression with anxiety. Follows with Urology for microscopic hematuria. She has a large cystic mass right shoulder and was evaluated by Dr. Cross. Aspirated several times with recurrence. Surgery not recommended. Davonte Bonnet Syndrome, Legally blind- supportive care Atopic Dermatitis: Aquaphor to skin for severe atopic dermatitis which does predispose her for remote h/o skin infections Hypercholesterolemia: continue Mevacor 40 mg by mouth daily. Proph- Lovenox Dispo: Discharge to [facility] today Total Time Spent: Greater than 30 minutes This includes examination of the patient, discharge planning, medication reconciliation, and communication with other providers. Discharge Instructions Please refer to the electronic Patient Visit Report (Discharge Instructions) for additional information. Additional Copies To Artemio Cleary M.D.; Jhony Penn M.D.
[2016-09-11] MEDS ORDERED: PLV75 PO (13:01)
[2016-12-03] MEDS ORDERED: FLV1 PO (14:12)
[2016-12-03] MEDS ORDERED: CYAN1SUB13 PO (14:12)
[2016-12-03] MEDS ORDERED: ULT50X PO (14:12)
[2016-12-03] MEDS ORDERED: METO25TA56 PO (14:12)
[2016-12-03] MEDS ORDERED: NRN100 PO (14:12)
[2016-12-03] MEDS ORDERED: ACET-24 PO (14:12)
== END 2016-07-31 16:50 | DRG 195 ==
LOC: ENRESERVDT → ENRESERVTM → EDBD 10:51 → C.EDC 10:52 → C.4E 16:33
PROVIDERS: ADMIT Hospitalist; ATTEND Family Medicine
DX: J18.9 Pneumonia, unspecified organism (principal); R53.1 Weakness; R26.2 Difficulty in walking, not elsewhere classified; R00.0 Tachycardia, unspecified; R94.31 Abnormal electrocardiogram [ECG] [EKG]; G20 Parkinson's disease; J45.909 Unspecified asthma, uncomplicated; G25.81 Restless legs syndrome; F41.8 Other specified anxiety disorders; Z91.81 History of falling; M25.562 Pain in left knee; M25.552 Pain in left hip; M71.311 Other bursal cyst, right shoulder; D64.9 Anemia, unspecified; K21.9 Gastro-esophageal reflux disease without esophagitis; E11.9 Type 2 diabetes mellitus without complications; I65.21 Occlusion and stenosis of right carotid artery; E78.5 Hyperlipidemia, unspecified; I10 Essential (primary) hypertension; H35.30 Unspecified macular degeneration; M81.0 Age-related osteoporosis without current pathological fracture; H54.8 Legal blindness, as defined in USA; E78.00 Pure hypercholesterolemia, unspecified; L20.9 Atopic dermatitis, unspecified; Z51.81 Encounter for therapeutic drug level monitoring; Z79.899 Other long term (current) drug therapy; Z82.49 Family history of ischemic heart disease and other diseases of the circulatory system; Z84.1 Family history of disorders of kidney and ureter

== ENCOUNTER 2016-09-05 14:17 | Observation (INO) | payer OTHER ==
[~2016-09-05] VITALS: Ht 154.9 cm; Wt 56.2 kg
[~2016-09-05 14:17] MED LIST changes: +ATRINS INH; +CLC100 PO; +FRRS300 PO; +GFNSR600 PO; +LDXCR60 EXT; +LOVA40TA3 PO; +LPR25 PO; +RQP1 PO; +RQP25 PO; +TYL325X PO; +VTMD1000 PO; +XPNINS1255 INH; +[UNRECOGNIZED DRUG - OTHER] EXT
[2016-09-05] MEDS ORDERED: SODIUM CHLORIDE 0.9% 1000ML 1,000 ML IV SCH (14:28)
--- NOTE | 2016-09-05 14:59 | DIAGNOSTIC IMAGING REPORT ---
CHEST ONE VIEW PORTABLE CLINICAL HISTORY: Stroke. COMPARISON STUDY: Chest CT and chest radiograph July 26, 2016. FINDINGS: There is no pneumothorax or pleural effusion. There is no evidence of pulmonary edema. Mild cardiomegaly is unchanged. Linear left basilar opacity is suggestive of atelectasis. A mass-like abnormality overlying the superior aspect of the right shoulder is better depicted on prior chest CT. IMPRESSION: 1. No acute findings. 2. Linear left basilar opacity which favors atelectasis. Electronically signed by: Burton Damon M.D. 09/05/2016 2:58 PM Dictated Date/Time: 09/05/2016 2:56 PM
[2016-09-05 15:02] LABS: BASO % 0.4 %; BASO ABS # 0.03 K/uL (0-0.2); COMPLETE YES; EOS % 5.3 %; HEMATOCRIT 34.4 % (37-47); IG% 0.4 %; LYMPH ABS # 1.65 K/uL (1.2-3.4); MEAN CELL VOLUME 91.5 fL (80-100); MEAN CORPUSCULAR HEMOGLOBIN 31.9 pg (25-34); MEAN CORPUSCULAR HGB CONC 34.9 g/dl (32-36); MEAN PLATELET VOLUME 8.6 fL (7.4-10.4); NEUT % 57.9 %; PLATELET COUNT 282 K/uL (130-400); RED BLOOD COUNT 3.76 M/uL (4.2-5.4); WHITE BLOOD COUNT 7.17 K/uL (4.8-10.8)
[2016-09-05 15:19] LABS: BLOOD UREA NITROGEN 22 mg/dl (7-18); BUN/CREATININE RATIO 20.1 (10-20); CALCIUM 8.6 mg/dl (8.5-10.1); CARBON DIOXIDE 27 mmol/L (21-32); CHLORIDE 102 mmol/L (98-107); GLUCOSE 113 mg/dl (70-99); POTASSIUM 4.1 mmol/L (3.5-5.1); SODIUM 137 mmol/L (136-145)
[2016-09-05 15:28] LABS: PROTHROMBIN TIME (PATIENT) 10.6 SECONDS (9.0-12.0)
--- NOTE | 2016-09-05 15:41 | DIAGNOSTIC IMAGING REPORT ---
CT HEAD WITHOUT CONTRAST (CT) CLINICAL HISTORY: Stroke COMPARISON STUDY: 07/26/2016 TECHNIQUE: Axial CT of the brain is performed from the vertex to the skull base. IV contrast was not administered for this examination. CT DOSE: 537.48 mGy.cm FINDINGS: No intra or extra-axial mass lesions are visualized. There is no CT evidence of acute cortical infarction. There is no evidence of midline shift. There is no acute hemorrhage. No calvarial fractures are visualized. There are moderately extensive white matter hypodensities likely on a small vessel basis. There is no evidence of pathologic ventricular dilatation. There is no evidence of acute sinusitis IMPRESSION: No acute intracranial findings Electronically signed by: Shawn Engel M.D. 09/05/2016 3:40 PM Dictated Date/Time: 09/05/2016 3:39 PM
[2016-09-05] MEDS ORDERED: ACET-1256 PO (15:49)
[2016-09-05] MEDS ORDERED: ROPI0.5T15 PO (15:49)
[2016-09-05] MEDS ORDERED: EFFSR75 PO (15:49)
[2016-09-05] MEDS ORDERED: TRMCR130WC TOP (15:49)
[2016-09-05] MEDS ORDERED: SENN-65 PO (15:49)
[2016-09-05] MEDS ORDERED: ATR10 PO (15:49)
[2016-09-05 16:21] LABS: URINE APPEARANCE CLEAR (CLEAR); URINE BILIRUBIN NEG (NEG); URINE COLOR YELLOW; URINE EPITHELIAL CELL AUTO 0-5 /lpf (0-5); URINE NITRITE NEG (NEG); URINE SPECIFIC GRAVITY 1.011 (1.000-1.030); UROBILINOGEN NEG (NEG); ZZURINE CULT IF INDIC CATH NO
[2016-09-05 16:26] LABS: MANUAL MICROSCOPIC REQUIRED? NO; REVIEW REQ? NO
[2016-09-05 16:38] LABS: BENZODIAZEPINE, URINE NEG (NEG); COCAINE,URINE NEG (NEG); PHENCYCLIDINE, URINE NEG (NEG)
[2016-09-05] MEDS ORDERED: ASPIRIN 81 MG CHEW PO STA (16:59)
--- NOTE | 2016-09-05 18:31 | History and Physical ---
History & Physical Date & Time of Service: Sep 05, 2016 at 18:19 Chief Complaint: Blood Pressure And Pulse Low,Headaches,Altered Primary Care Physician: Artemio Cleary M.D. History of Present Illness Source: patient, clinic records, halfway Pt is a 81 yr old woman with a hx of Parkinsons disease, HTN, HLD, Bronchial asthma, Depression, macular degeneration, s/p recent fall, ambulatory dysfn ( walks with a walker) admitted for evaluation of expressive dysphasia and VILLA. Exp. dysphasia sudden onse earlier today, now resolved. No other neurological symptoms VILLA left temporal over the past few weeks. On and off, can occur q day. Relief with tylenol. No other associated neuro symptoms. No prior hx of VILLA. No hx of recent head trauma. No prior hx of migraines, CVA. Past Medical/Surgical History Medical Problems: (1) Asthma, Unspecified Status: Chronic (2) Depressive Disorder Nec Status: Chronic (3) Diab Leticia Wo Compl, Type Ii Or Unspec Type, Not Uncntrld Status: Chronic (4) Esophageal Reflux Status: Chronic (5) Hyperlipidemia Nec/Nos Status: Chronic (6) Hypertension Nos Status: Chronic (7) Parkinson disease Status: Chronic Family History Gallbladder disease Heart disease Hypertension Kidney disease Kidney stones Social History Smoking Status: Never Smoker Drug Use: none Marital Status: Housing status: lives with family Occupational Status: retired Multi-Drug Resistant Organisms History of MDRO: No Allergies Coded Allergies: Diphenhydramine (Verified Allergy, Severe, SWELLING IN THROAT, 09/05/16) Iodine (Verified Allergy, Severe, THROAT SWELLING, 09/05/16) Shellfish (Verified Allergy, Severe, ANAPHYLAXIS AND FULL BODY HIVES, 09/05) Ciprofloxacin (Verified Allergy, Intermediate, HIVES FULL BODY, 09/05/16) Quinine (Verified Allergy, Mild, HIVES, 09/05/16) Latex1 -Allergic Contact Dermititis (Verified Allergy, Unknown, DERMATITIS , 09/05/16) Triprolidine (Verified Allergy, Unknown, HIVES, ASTHMA EXACERBATION, ) Home Medications Scheduled Carbidopa-Levodopa (Sinemet Cr 25MG/100MG), 1.5 TAB PO QID Ferrous Sulfate (Ferrous Sulfate), 325 MG PO BIDM Fluticasone Prop/Salmeterol (Advair Diskus 500-50 Mcg/Dose), 1 PUFF INH BID Lovastatin (Mevacor), 40 MG PO DAILY Melatonin (Melatonin), 3 MG PO HS Metoprolol Tartrate (Lopressor), 25 MG PO BID Montelukast Sodium (Singulair), 10 MG PO HS Pantoprazole (Protonix), 40 MG PO BID Ropinirole (Requip), 0.5 MG PO DAILY@1200 Ropinirole HCl (Ropinirole HCl), 1 MG PO HS Senna/Docusate Sod (Senokot S), 1 TAB PO DAILY@1200 Venlafaxine Hcl (Effexor Extended Rel), 75 MG PO DAILY@1200 Scheduled PRN Acetaminophen (Tylenol), 500 MG PO Q4 PRN for Pain Albuterol Hfa (Ventolin Hfa), 2-4 PUFFS INH Q6H PRN for BREATHING/ASTHMA Hydroxyzine HCl (Hydroxyzine HCl), 10 MG PO HS PRN for ITCHING/ANXIETY Triamcinolone Acet (Aristocort 0.1%), 1 APPLN TOP BID PRN for PRN Review of Systems Constitutional: No chills, No fatigue, No fever, No problem reported, No sweats , No weakness, No weight loss Eyes: No diplopia, No discharge, No eye pain, No problem reported, No redness, No worsening of vision Respiratory: No cough, No dyspnea at rest, No dyspnea on exertion, No hemoptysis, No problem reported, No shortness of breath, No sputum, No wheezing Abdomen: No GI bleeding, No constipation, No diarrhea, No nausea, No pain, No problem reported, No vomiting Musculoskeletal: No calf pain, No joint pain, No muscle pain, No problem reported, No swelling Genitourinary - Female: No dysmenorrhea, No dysuria, No hematuria, No menorrhagia, No metrorrhagia, No , No problem reported, No rash, No urinary frequency, No urinary incontinence, No urinary retention, No urinary urgency, No vaginal bleeding, No vaginal discharge, No vaginal itching, No vulvodynia Neurologic: + problem reported (VILLA, see HPI) Psychiatric: No anhedonism, No anxiety, No depression symptoms, No insomnia, No problem reported, No substance abuse Endocrine: No excessive thirst, No excessive urination, No fatigue, No problem reported Hematologic / Lymphatic: No abnormal bleeding/bruising, No clotting problems, No night sweats, No problem reported, No swollen lymph nodes Integumentary: + problem reported, No bleeding, No color change, No itch, No new/changing skin lesions, No rash Physical Exam Vital Signs Date Time Temp Pulse Resp B/P Pulse Ox O2 Delivery O2 Flow Rate FiO2 09/05/16 17:28 96 18 164/95 97 Room Air 09/05/16 15:52 93 18 160/89 97 Room Air 09/05/16 14:27 99 Room Air 09/05/16 14:27 36.6 83 18 141/33 94 Room Air 09/05/16 14:27 88 General Appearance: WD/WN, no apparent distress Head: normocephalic, atraumatic Eyes: normal inspection, PERRL, EOMI ENT: normal ENT inspection, hearing grossly normal, TMs normal, pharynx normal Neck: supple, no adenopathy, thyroid normal, no JVD Respiratory/Chest: chest non-tender, lungs clear, no accessory muscle use Cardiovascular: regular rate, rhythm, no edema, no gallop, normal peripheral pulses Abdomen/GI: normal bowel sounds, non tender, soft, no organomegaly, no pulsatile mass Back: normal inspection, no CVA tenderness Extremities/Musculoskelatal: no calf tenderness, no pedal edema, normal range of motion, + pertinent finding (Tennis ball sized lump noted over the right shoulder, non tender, non pulsatile, freely mobile) Skin: normal color Lymphatic: no adenopathy Diagnostics Laboratory Results Results Past 24 Hours Test 09/05/16 00:00 09/05/16 14:43 09/05/16 14:52 Range/Units Urine Color YELLOW Urine Appearance CLEAR CLEAR Urine pH 7.0 4.5-7.5 Urine Specific [place] 1.011 1.000-1.030 Urine Protein NEG NEG Urine Glucose (UA) NEG NEG Urine Ketones NEG NEG Urine Occult Blood NEG NEG Urine Nitrite NEG NEG Urine Bilirubin NEG NEG Urine Urobilinogen NEG NEG Urine Leukocyte Esterase NEG NEG Urine WBC (Auto) 0 0-5 /hpf Urine RBC (Auto) 0-4 0-4 /hpf Urine Hyaline Casts (Auto) 1-5 0-5 /lpf Urine Epithelial Cells (Auto) 0-5 0-5 /lpf Urine Bacteria (Auto) NEG NEG Urine Opiates Screen NEG NEG Urine Methadone, Qualitative NEG NEG Urine Barbiturates NEG NEG Urine Phencyclidine (PCP) Level NEG NEG Ur Amphetamine/Methamphetamine NEG NEG MDMA (Ecstasy) Screen NEG NEG Urine Benzodiazepines Screen NEG NEG Urine Cocaine Metabolite NEG NEG Urine Marijuana (THC) NEG NEG Bedside Prothrombin Time INR 1.0 0.9-1.1 Bedside Glucose 112 70-90 mg/dl White Blood Count 7.17 4.8-10.8 K/uL Red Blood Count 3.76 4.2-5.4 M/uL Hemoglobin 12.0 12.0-16.0 g/dL Hematocrit 34.4 37-47 % Mean Corpuscular Volume 91.5 80-100 fL Mean Corpuscular Hemoglobin 31.9 25-34 pg Mean Corpuscular Hemoglobin Concent 34.9 32-36 g/dl Platelet Count 282 130-400 K/uL Mean Platelet Volume 8.6 7.4-10.4 fL Neutrophils (%) (Auto) 57.9 % Lymphocytes (%) (Auto) 23.0 % Monocytes (%) (Auto) 13.0 % Eosinophils (%) (Auto) 5.3 % Basophils (%) (Auto) 0.4 % Neutrophils # (Auto) 4.15 1.4-6.5 K/uL Lymphocytes # (Auto) 1.65 1.2-3.4 K/uL Monocytes # (Auto) 0.93 0.11-0.59 K/uL Eosinophils # (Auto) 0.38 0-0.5 K/uL Basophils # (Auto) 0.03 0-0.2 K/uL RDW Standard Deviation 46.2 36.4-46.3 fL RDW Coefficient of Variation 13.8 11.5-14.5 % Immature Granulocyte % (Auto) 0.4 % Immature Granulocyte # (Auto) 0.03 0.00-0.02 K/uL Prothrombin Time 10.6 9.0-12.0 SECONDS Prothromb Time International Ratio 1.0 0.9-1.1 Activated Partial Thromboplast Time 26.4 21.0-31.0 SECONDS Partial Thromboplastin Ratio 1.0 Sodium Level 137 136-145 mmol/L Potassium Level 4.1 3.5-5.1 mmol/L Chloride Level 102 98-107 mmol/L Carbon Dioxide Level 27 21-32 mmol/L Anion Gap 8.0 3-11 mmol/L Blood Urea Nitrogen 22 7-18 mg/dl Creatinine 1.10 0.60-1.20 mg/dl Est Creatinine Clear Calc Drug Dose 32.8 ml/min Estimated GFR () 54.5 Estimated GFR (Non- 47.0 BUN/Creatinine Ratio 20.1 10-20 Random Glucose 113 70-99 mg/dl Calcium Level 8.6 8.5-10.1 mg/dl Total Creatine Kinase 40 26-192 U/L Creatine Kinase MB < 0.5 0.5-3.6 ng/ml Creatine Kinase MB Ratio 0-3.0 Troponin I < 0.015 0-0.045 ng/ml Impression Assessment and Plan VILLA: ? Etiology. CT head is neg. for infarct or bleed. Will continue with tylenol. Check ESR. Consult Neuro, check carotid US. Consider MRI brain. Hx of PD: Cont. with Carbidopa/Levodopa and Ropinirole Hx HLD: Cont. Statin HTN: Cont metoprolol B.asthma; On Montelukast and Advair Diskus Depression: on Venlafaxine DVT prophylaxis: Seq. TEDs Code status: Full code per patient POA: Lucretia Murray (Dtr) [phone] Level of Care Telemetry Advanced Directives Existing Advance Directive: Yes Existing Living Will: Yes Existing Power of Supervisor Byproducts: Yes Resuscitation Status FULL RESUSCITATION VTE Prophylaxis VTE Risk Assessment Done? Y/N: Yes Risk Level: High Given or contraindicated: SCD's Social Service Consult Lives in [place]
--- NOTE | 2016-09-05 18:35 | EMERGENCY ROOM VISIT NOTE ---
History Report prepared by Diana: Halie Guerin Under the Supervision of: Dr. Jhony Orozco D.O. 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 The EMS reports that she was eating lunch when suddenly she began to stare straight ahead. She began to make no sense with her words. She did not have any facial droop. She denies any weakness or numbness in her arms and legs now. She cannot remember the event. She does admit to a frontal headache. She denies any cough, chest pain, SOB, abdominal pain, or dysuria. Patient has no other complaints at this time. 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 A total of 10 systems reviewed and were otherwise negative. Past Medical & Surgical Medical Problems: (1) Asthma, Unspecified (2) Depressive Disorder Nec (3) Diab Leticia Wo Compl, Type Ii Or Unspec Type, Not Uncntrld (4) Esophageal Reflux (5) Hyperlipidemia Nec/Nos (6) Hypertension Nos (7) Parkinson disease (8) Pneumonia Family History Gallbladder disease Heart disease Hypertension Kidney disease Kidney stones Social History Smoking Status: Never Smoker Alcohol Use: none Drug Use: none Marital Status: Housing Status: lives with family Occupation Status: retired Current/Historical Medications Scheduled Carbidopa-Levodopa (Sinemet Cr 25MG/100MG), 1.5 TAB PO QID Ferrous Sulfate (Ferrous Sulfate), 325 MG PO BIDM Fluticasone Prop/Salmeterol (Advair Diskus 500-50 Mcg/Dose), 1 PUFF INH BID Lovastatin (Mevacor), 40 MG PO DAILY Melatonin (Melatonin), 3 MG PO HS Metoprolol Tartrate (Lopressor), 25 MG PO BID Montelukast Sodium (Singulair), 10 MG PO HS Pantoprazole (Protonix), 40 MG PO BID Ropinirole (Requip), 0.5 MG PO DAILY@1200 Ropinirole HCl (Ropinirole HCl), 1 MG PO HS Senna/Docusate Sod (Senokot S), 1 TAB PO DAILY@1200 Venlafaxine Hcl (Effexor Extended Rel), 75 MG PO DAILY@1200 Scheduled PRN Acetaminophen (Tylenol), 500 MG PO Q4 PRN for Pain Albuterol Hfa (Ventolin Hfa), 2-4 PUFFS INH Q6H PRN for BREATHING/ASTHMA Hydroxyzine HCl (Hydroxyzine HCl), 10 MG PO HS PRN for ITCHING/ANXIETY Triamcinolone Acet (Aristocort 0.1%), 1 APPLN TOP BID PRN for PRN Allergies Coded Allergies: Diphenhydramine (Verified Allergy, Severe, SWELLING IN THROAT, 09/05/16) Iodine (Verified Allergy, Severe, THROAT SWELLING, 09/05/16) Shellfish (Verified Allergy, Severe, ANAPHYLAXIS AND FULL BODY HIVES, 09/05) Ciprofloxacin (Verified Allergy, Intermediate, HIVES FULL BODY, 09/05/16) Quinine (Verified Allergy, Mild, HIVES, 09/05/16) Latex1 -Allergic Contact Dermititis (Verified Allergy, Unknown, DERMATITIS , 09/05/16) Triprolidine (Verified Allergy, Unknown, HIVES, ASTHMA EXACERBATION, ) Physical Exam Vital Signs Date Time Temp Pulse Resp B/P Pulse Ox O2 Delivery O2 Flow Rate FiO2 09/05/16 18:28 98 09/05/16 17:28 96 18 164/95 97 Room Air 09/05/16 15:52 93 18 160/89 97 Room Air 09/05/16 14:27 99 Room Air 09/05/16 14:27 36.6 83 18 141/33 94 Room Air 09/05/16 14:27 88 Physical Exam GENERAL: Sitting up in bed, chronically-ill appearing, no acute distress. EYE EXAM: normal conjunctiva, PERRL and EOM's intact OROPHARYNX: no exudate, no erythema, lips, buccal mucosa, and tongue normal and mucous membranes are moist NECK: supple, no nuchal rigidity, no adenopathy, non-tender LUNGS: Clear to auscultation. Normal chest wall mechanics HEART: no murmurs, S1 normal and S2 normal ABDOMEN: abdomen soft, non-tender, normo-active bowel sounds, no masses, no rebound or guarding. BACK: Back is symmetrical on inspection and there is no deformity, no midline tenderness, no CVA tenderness. SKIN: no rashes and no bruising UPPER EXTREMITIES: upper extremities are grossly normal. LOWER EXTREMITIES: No pitting edema. NEURO EXAM: Normal sensorium, cranial nerves II-XII intact, intermittent and stuttering speech, no weakness of arms, no weakness of legs. No drift. Finger to nose intact. Gross sensation intact. Medical Decision & Procedures ER Provider Diagnostic Interpretation: Xray results per the radiologist and my interpretation. Other results have been interpreted by the radiologist and reviewed by me. CHEST ONE VIEW PORTABLE CLINICAL HISTORY: Stroke. COMPARISON STUDY: Chest CT and chest radiograph July 26, 2016. FINDINGS: There is no pneumothorax or pleural effusion. There is no evidence of pulmonary edema. Mild cardiomegaly is unchanged. Linear left basilar opacity is suggestive of atelectasis. A mass-like abnormality overlying the superior aspect of the right shoulder is better depicted on prior chest CT. IMPRESSION: 1. No acute findings. 2. Linear left basilar opacity which favors atelectasis. Electronically signed by: Burton Damon M.D. 09/05/2016 2:58 PM Dictated Date/Time: 09/05/2016 2:[address] HEAD WITHOUT CONTRAST (CT) CLINICAL HISTORY: Stroke COMPARISON STUDY: 07/26/2016 TECHNIQUE: Axial CT of the brain is performed from the vertex to the skull base. IV contrast was not administered for this examination. CT DOSE: 537.48 mGy.cm FINDINGS: No intra or extra-axial mass lesions are visualized. There is no CT evidence of acute cortical infarction. There is no evidence of midline shift. There is no acute hemorrhage. No calvarial fractures are visualized. There are moderately extensive white matter hypodensities likely on a small vessel basis. There is no evidence of pathologic ventricular dilatation. There is no evidence of acute sinusitis IMPRESSION: No acute intracranial findings Electronically signed by: Shawn Engel M.D. 09/05/2016 3:40 PM Dictated Date/Time: 09/05/2016 3:39 PM Laboratory Results 09/05/16 14:52 Red Blood Count 3.76, Mean Corpuscular Volume 91.5, Mean Corpuscular Hemoglobin 31.9, Mean Corpuscular Hemoglobin Concent 34.9, Mean Platelet Volume 8.6, Neutrophils (%) (Auto) 57.9, Lymphocytes (%) (Auto) 23.0, Monocytes (%) (Auto) 13.0, Eosinophils (%) (Auto) 5.3, Basophils (%) (Auto) 0.4, Neutrophils # (Auto ) 4.15, Lymphocytes # (Auto) 1.65, Monocytes # (Auto) 0.93, Eosinophils # (Auto ) 0.38, Basophils # (Auto) 0.03 09/05/16 14:52 Test 09/05/16 00:00 09/05/16 14:43 09/05/16 14:52 Urine Color YELLOW Urine Appearance CLEAR (CLEAR) Urine pH 7.0 (4.5-7.5) Urine Specific [place] 1.011 (1.000-1.030) Urine Protein NEG (NEG) Urine Glucose (UA) NEG (NEG) Urine Ketones NEG (NEG) Urine Occult Blood NEG (NEG) Urine Nitrite NEG (NEG) Urine Bilirubin NEG (NEG) Urine Urobilinogen NEG (NEG) Urine Leukocyte Esterase NEG (NEG) Urine WBC (Auto) 0 /hpf (0-5) Urine RBC (Auto) 0-4 /hpf (0-4) Urine Hyaline Casts (Auto) 1-5 /lpf (0-5) Urine Epithelial Cells (Auto) 0-5 /lpf (0-5) Urine Bacteria (Auto) NEG (NEG) Urine Opiates Screen NEG (NEG) Urine Methadone, Qualitative NEG (NEG) Urine Barbiturates NEG (NEG) Urine Phencyclidine (PCP) Level NEG (NEG) Ur Amphetamine/Methamphetamine NEG (NEG) MDMA (Ecstasy) Screen NEG (NEG) Urine Benzodiazepines Screen NEG (NEG) Urine Cocaine Metabolite NEG (NEG) Urine Marijuana (THC) NEG (NEG) Bedside Prothrombin Time INR 1.0 (0.9-1.1) Bedside Glucose 112 mg/dl (70-90) White Blood Count 7.17 K/uL (4.8-10.8) Red Blood Count 3.76 M/uL (4.2-5.4) Hemoglobin 12.0 g/dL (12.0-16.0) Hematocrit 34.4 % (37-47) Mean Corpuscular Volume 91.5 fL (80-100) Mean Corpuscular Hemoglobin 31.9 pg (25-34) Mean Corpuscular Hemoglobin Concent 34.9 g/dl (32-36) Platelet Count 282 K/uL (130-400) Mean Platelet Volume 8.6 fL (7.4-10.4) Neutrophils (%) (Auto) 57.9 % Lymphocytes (%) (Auto) 23.0 % Monocytes (%) (Auto) 13.0 % Eosinophils (%) (Auto) 5.3 % Basophils (%) (Auto) 0.4 % Neutrophils # (Auto) 4.15 K/uL (1.4-6.5) Lymphocytes # (Auto) 1.65 K/uL (1.2-3.4) Monocytes # (Auto) 0.93 K/uL (0.11-0.59) Eosinophils # (Auto) 0.38 K/uL (0-0.5) Basophils # (Auto) 0.03 K/uL (0-0.2) RDW Standard Deviation 46.2 fL (36.4-46.3) RDW Coefficient of Variation 13.8 % (11.5-14.5) Immature Granulocyte % (Auto) 0.4 % Immature Granulocyte # (Auto) 0.03 K/uL (0.00-0.02) Prothrombin Time 10.6 SECONDS (9.0-12.0) Prothromb Time International Ratio 1.0 (0.9-1.1) Activated Partial Thromboplast Time 26.4 SECONDS (21.0-31.0) Partial Thromboplastin Ratio 1.0 Anion Gap 8.0 mmol/L (3-11) Est Creatinine Clear Calc Drug Dose 32.8 ml/min Estimated GFR () 54.5 Estimated GFR (Non- 47.0 BUN/Creatinine Ratio 20.1 (10-20) Calcium Level 8.6 mg/dl (8.5-10.1) Total Creatine Kinase 40 U/L (26-192) Creatine Kinase MB < 0.5 ng/ml (0.5-3.6) Creatine Kinase MB Ratio (0-3.0) Troponin I < 0.015 ng/ml (0-0.045) Laboratory results per my review. Medications Administered Medications (Trade) Dose Ordered Sig/Joceline Route Start Time Stop Time Status Last Admin Dose Admin Sodium Chloride (Nss 1000ml) 1,000 ml @ 50 mls/hr Q20H IV 09/05/16 14:28 10/05/16 14:27 09/05/16 14:28 50 MLS/HR Aspirin (Aspirin Chew) 324 mg NOW STAT PO 09/05/16 16:59 09/05/16 17:00 DC 09/05/16 17:26 324 MG ECG Indication: altered mental status Rate (beats per minute): 84 Rhythm: sinus rhythm Findings: PVC, ST depression, left axis deviation, other (lateral, inferior T- waves) Comparison ECG Date: 28-Jul-2016 Change: no significant change ED Course ED COURSE: Vital signs were reviewed and showed normal vitals. The patients medical record was reviewed The above diagnostic studies were performed and reviewed. ED treatments and interventions as stated above. 1419: The patient was evaluated in room C1. A complete history and physical examination was performed. 1428: NSS 1000 ml @ 50 mls/hr IV. 1628: Upon reevaluation, the patient is resting comfortably.I discussed my findings with the patient and she understands and agrees with the treatment plan. Based on the patients age, coexisting illnesses, exam and lab findings the decision to treat as an inpatient was made. The patient remained stable while under my care. The patient will be evaluated for further management. 1658: I discussed the patient's case with TAMMY Maciel - hospitalist. The patient will be evaluated for further management. 1659: Aspirin 324 mg PO. Medical Decision Differential Diagnosis includes but is not limited to ischemic Stroke, hemorrhagic stroke, bells palsy, mass, neoplasm, migraine headache, seizure, subarachnoid hemorrhage, TIA, and transient global amnesia. Patient is an 81-year-old female who presents the ER for aphasia. Labs show no significant leukocytosis or anemia. BMP along with troponin was unremarkable. Toxicology, INR and UA was negative. CT head was negative. She was completely neurologically intact on my exam. Patient was given fluids and aspirin. Patient will be admitted to internal medicine for TIA workup. Consults Time Called: [phone] Consulting Physician: TAMMY Maciel - hospitalist Returned Call: [phone] I discussed the patient's case with her. The patient will be evaluated for further management. Impression Primary Impression: TIA (transient ischemic attack) Additional Impressions: Altered mental status Expressive aphasia Scribe Attestation The scribe's documentation has been prepared under my direction and personally reviewed by me in its entirety. I confirm that the note above accurately reflects all work, treatment, procedures, and medical decision making performed by me. Departure Information Dispostion Being Evaluated By Hospitalist Artemio Newton M.D. (PCP) Patient Instructions My [facility] Problem Qualifiers Primary Impression: TIA (transient ischemic attack) Transient cerebral ischemia type: unspecified Qualified Codes: G45.9 - Transient cerebral ischemic attack, unspecified Additional Impressions: Altered mental status Altered mental status type: unspecified Qualified Codes: R41.82 - Altered mental status, unspecified
[2016-09-05] MEDS ORDERED: ALBUTEROL HFA 8 GM INHALER INH PRN (18:45)
[2016-09-05] MEDS ORDERED: TRIAMCINOLONE ACET 0.1% CR 15 GM TUBE EXT PRN (18:45)
[2016-09-05] MEDS ORDERED: hydrOXYzine HCL 10 MG TAB PO PRN (18:45)
[2016-09-05] MEDS ORDERED: ZOLPIDEM TARTRATE 5 MG TAB PO PRN (18:45)
[2016-09-05 19:14] LABS: CHOLESTEROL/HDL RATIO 2.2
[2016-09-05] MEDS ORDERED: ACETAMINOPHEN 325 MG TAB ONE (19:25)
[2016-09-05] MEDS ORDERED: IV FLUIDS COMPLETED PRN (19:45)
--- NOTE | 2016-09-05 20:40 | DIAGNOSTIC IMAGING REPORT ---
BILATERAL CAROTID DOPPLER STUDY HISTORY: Mental status change TIA COMPARISON: None. TECHNIQUE: Real-time, grayscale, and color Doppler sonography of the carotid arteries was performed. Imaging reviewed in the transverse and longitudinal planes. All measurements were calculated based on NASCET criteria. FINDINGS: Antegrade flow is seen in the bilateral vertebral arteries. The brachial pressures are hemodynamically similar. Moderate to significant plaque formation bilaterally The peak systolic velocity within the right ICA is 87. The right systolic ratio is 1.5. The peak systolic velocity within the left ICA is 104. The left systolic ratio is 1.2. IMPRESSION: 1. Moderate to rather significant plaque dimension bilaterally. 2. Moderate stenosis right external carotid artery.. 3. No significant stenotic process of the common or internal carotid arteries. 4. No significant change compared to the prior study Electronically signed by: Terry Chavis M.D. 09/05/2016 8:38 PM Dictated Date/Time: 09/05/2016 8:36 PM
[2016-09-05] MEDS ORDERED: NON-FORMULARY MEDICATION (Melatonin 3 MG) PO SCH (21:00)
[2016-09-05 21:14] VITALS: BP 157/87; PULSE 90; TEMP 37; O2SAT 98; Ht 154.9 cm; Wt 56.2 kg
[2016-09-05] MEDS: PANTOprazole SOD 40 MG TAB PO SCH (21:48)
[2016-09-05] MEDS: MONTELUKAST SOD 10 MG TAB PO SCH (21:48)
[2016-09-05] MEDS: CARBIDOPA/LEVODOPA 25/100MG EXT REL TAB PO SCH (21:49)
[2016-09-05] MEDS: FLUTICASONE/SALMETEROL (ADVAIR) 500/50 INH 14 PUFF INH SCH (21:50)
[2016-09-05] MEDS: METOPROLOL TARTRATE 25 MG TAB PO SCH (21:50)
[2016-09-05] MEDS: ROPINIROLE HCL 1 MG TAB PO SCH (21:50)
[2016-09-05 23:32] VITALS: BP 114/72; PULSE 77; TEMP 36.7; O2SAT 95
[2016-09-06] MEDS: ACETAMINOPHEN 325 MG TAB PO PRN ×2 (01:28→08:58)
[2016-09-06 04:20] VITALS: BP 115/73; PULSE 77; TEMP 36.6; O2SAT 97
[2016-09-06 07:34] VITALS: BP 132/79; PULSE 86; TEMP 36.8; O2SAT 96
[2016-09-06] MEDS: FERROUS SULFATE 325 MG TAB PO SCH ×2 (08:26→16:57)
[2016-09-06] MEDS: FLUTICASONE/SALMETEROL (ADVAIR) 500/50 INH 14 PUFF INH SCH ×2 (08:27→20:54)
[2016-09-06] MEDS: METOPROLOL TARTRATE 25 MG TAB PO SCH ×2 (08:27→20:55)
[2016-09-06] MEDS: LOVASTATIN 20 MG TAB PO SCH (08:28)
[2016-09-06] MEDS: PANTOprazole SOD 40 MG TAB PO SCH ×2 (08:28→20:55)
[2016-09-06] MEDS: CARBIDOPA/LEVODOPA 25/100MG EXT REL TAB PO SCH ×4 (08:29→20:57)
--- NOTE | 2016-09-06 08:41 | Neurology Consultation ---
Neurology Consultation Date of Consultation: Sep 06, 2016. Attending Physician: Stas Sandy M.D. Primary Care Physician: Artemio Cleary M.D. Reason for Consultation: Patient is an 81-year-old, who was asked to see at the request of Dr. Sandy, for neurologic consultation regarding episode of expressive aphasia yesterday as well as Parkinson's disease and other problems. History of Present Illness Source: patient, caregiver, clinic records, hospital records Patient was first seen by Dr. Loyd in February 2013. She had a resting tremor since 2009 and was noted to have some rigidity. He diagnosed Parkinson' s disease and initiated Sinemet low-dose. She's been on Sinemet ever since and currently is on 25/101.5 tablets 4 times a day. She last saw Dr. Loyd in June 2016. MRI of the brain in March 2014 showed generalized atrophy and some chronic small vessel ischemic disease. MR angiography of the head was unremarkable and. Patient has a history of mild cognitive impairment/dementia. She was initiated on Aricept in March 2016. There was some concern that it was making her visual hallucinations worse so this was discontinued in June. Patient has restless leg syndrome and is on Requip 0.5 mg in the morning and 1.0 mg in the evening, which helps her restless legs as well as the Parkinson's disease. Patient has had some significant falling recently and because of her poor vision secondary to macular degeneration as well as the Parkinson's disease she has been in [facility] now for the last week. She remembers getting up the morning of 05 September feeling her usual self. Sometime around lunchtime she stopped talking and was staring straight ahead when she spoke she had some nonsense words. She complained of a frontal headache. She arrived at the emergency room at 1427 hours September 05 with a temperature 36.6 , pulse 83 and regular, respiratory rate 18, blood pressure 143/33, and O2 saturation 94%. Neurologic examination was unremarkable with no focal weakness or other signs and she had some stuttering speech but understood. A little later she was back to baseline with everything including her speech. She had no recall of the events around lunchtime. Chest x-ray was unremarkable except for some atelectasis CT scan of the head showed no acute changes. CBC was unremarkable and chem profile was unremarkable. Glucose was 113. Cholesterol was 150. Carotid ultrasound showed some moderate plaque but no significant stenoses. Overnight she has had no further events or problems according to nursing staff. Currently the patient has no complaints except for a very mild left posterior headache. She says she gets headaches on and off. She denies new speech, vision, confusion, weakness, numbness, or pain problems. She does not have incontinence of urine. Gait for her is very hard. She has a resting tremor right greater than left hand. Past Medical/Surgical History Medical Problems: (1) Altered mental status Status: Acute (2) Contusion of left hip and thigh Status: Acute (3) Expressive aphasia Status: Acute (4) Fall Status: Acute (5) Fall Status: Acute (6) Inability to ambulate due to left knee Status: Acute (7) Left knee sprain Status: Acute (8) TIA (transient ischemic attack) Status: Acute (9) TIA (transient ischemic attack) Status: Acute Parkinson's disease Depression, stable on venlafaxine 75 mg a day History of asthma Diabetes of uncertain type Dyslipidemia Hypertension Gastroesophageal reflux disease History of pneumonia Mild dementia Restless leg syndrome Macular degeneration with very poor vision 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 Father age 89 of heart issues Patient has 2 children, 7 grandchildren and one great-grandchild Social History Patient never smoked cigarettes and does not use alcohol. 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 Smoking Status: Never smoker Smokeless Tobacco Use: No Alcohol Use: none Drug Use: none Marital Status: Housing Status: lives with family Occupation Status: retired Allergies Coded Allergies: Diphenhydramine (Verified Allergy, Severe, SWELLING IN THROAT, 09/05/16) Iodine (Verified Allergy, Severe, THROAT SWELLING, 09/05/16) Shellfish (Verified Allergy, Severe, ANAPHYLAXIS AND FULL BODY HIVES, 09/05) Ciprofloxacin (Verified Allergy, Intermediate, HIVES FULL BODY, 09/05/16) Quinine (Verified Allergy, Mild, HIVES, 09/05/16) Latex1 -Allergic Contact Dermititis (Verified Allergy, Unknown, DERMATITIS , 09/05/16) Triprolidine (Verified Allergy, Unknown, HIVES, ASTHMA EXACERBATION, ) Current Inpatient Medications Current Inpatient Medications Medications (Trade) Dose Ordered Sig/Joceline Route Start Time Stop Time Status Last Admin Dose Admin Acetaminophen (Tylenol Tab) 650 mg Q4H PRN PO 09/05/16 18:45 10/05/16 18:44 09/06/16 01:28 650 MG Zolpidem Tartrate (Ambien Tab) 5 mg HSZ PRN PO 09/05/16 18:45 10/05/16 18:44 Albuterol (Ventolin Hfa Inhaler) 2 puffs Q6H PRN INH 09/05/16 18:45 10/05/16 18:44 Carbidopa/Levodopa (Sinemet Cr 25/ 100MG Tab) 1.5 tab QID PO 09/05/16 21:00 10/05/16 20:59 09/05/16 21:49 1.5 TAB Ferrous Sulfate (Feosol Tab) 325 mg BIDM PO 09/06/16 08:00 10/06/16 07:59 Salmeterol Xinafoate/ Fluticasone (Advair Diskus 500/50 Inh) 1 puff BID INH 09/05/16 22:00 10/05/16 21:59 09/05/16 21:50 1 PUFF Hydroxyzine HCl (Vistaril Tab) 10 mg HS PRN PO 09/05/16 18:45 10/05/16 18:44 09/06/16 04:48 10 MG Metoprolol Tartrate (Lopressor Tab) 25 mg BID PO 09/05/16 21:00 10/05/16 20:59 09/05/16 21:50 25 MG Montelukast Sodium (Singulair Tab) 10 mg HS PO 09/05/16 21:00 10/05/16 20:59 09/05/16 21:48 10 MG Pantoprazole Sodium (Protonix Tab) 40 mg BID PO 09/05/16 21:00 10/05/16 20:59 09/05/16 21:48 40 MG Ropinirole HCl (Requip Tab) 0.5 mg DAILY@1200 PO 09/06/16 12:00 10/06/16 11:59 Ropinirole HCl (Requip Tab) 1 mg HS PO 09/05/16 21:00 10/05/16 20:59 09/05/16 21:50 1 MG Senna/Docusate Sodium (Senokot S Tab) 1 tab DAILY@1200 PO 09/06/16 12:00 10/06/16 11:59 Triamcinolone Acetonide (Kenalog 0.1% Cream) 1 appln BID PRN EXT 09/05/16 18:45 10/05/16 18:44 Venlafaxine HCl (effeXOR EXTENDED REL CAP) 75 mg DAILY@1200 PO 09/06/16 12:00 10/06/16 11:59 Lovastatin (Mevacor Tab) 40 mg DAILY PO 09/06/16 09:00 10/06/16 08:59 Miscellaneous (Iv Fluids Completed) 1 ea PRN PRN N/A 09/05/16 19:45 09/05/17 19:44 Review of Systems Constitutional: + fatigue, + weakness Eyes: + worsening of vision, No diplopia ENT: No hearing loss, No tinnitus Respiratory: No cough, No shortness of breath Cardiovascular: No chest pain, No palpitations Abdomen: No nausea, No pain Musculoskeletal: No joint pain, No muscle pain Genitourinary - Female: + urinary frequency, No urinary incontinence Neurologic: + balance problems, + memory loss, + weakness, No numbness/tingling , No vertigo Psychiatric: + depression symptoms, No anxiety Endocrine: + fatigue Hematologic / Lymphatic: No abnormal bleeding/bruising Integumentary: No rash Allergic / Immunologic: No hives Physical Exam Vital Signs (Past 24 Hrs): Date Time Temp Pulse Resp B/P Pulse Ox O2 Delivery O2 Flow Rate FiO2 09/06/16 07:34 36.8 86 18 132/79 96 Room Air 09/06/16 04:20 36.6 77 18 115/73 97 Room Air 09/06/16 04:00 Room Air 09/06/16 00:05 Room Air 09/05/16 23:32 36.7 77 16 114/72 95 Room Air 09/05/16 21:14 37.0 90 20 157/87 98 Room Air 09/05/16 19:39 96 20 161/77 97 Room Air 09/05/16 18:28 98 09/05/16 17:28 96 18 164/95 97 Room Air 09/05/16 15:52 93 18 160/89 97 Room Air 09/05/16 14:27 99 Room Air 09/05/16 14:27 36.6 83 18 141/33 94 Room Air 09/05/16 14:27 88 Patient is right-handed. The patient is awake and alert. Speech is normal without aphasia or dysarthria. Mood and affect are normal and appropriate. She has some short term and intermediate term memory problems. She is fairly good with general conversation but knows she has some deficits. She is fully oriented to person, place, and time except she doesn't know the exact date but knows that it is late August.. The discs are sharp bilaterally. She has very poor vision but can finger count close-up bilaterally and seems to have a reasonable visual ramírez. Pupils are 3mm bilaterally and reactive to light. Extraocular eye muscles are intact without nystagmus. There are no deficits to sensation of the face bilaterally. Corneal reflexes are positive bilaterally. Facial strength and symmetry is normal bilaterally. Hearing seems intact grossly to voice and finger rub. Palate moves well without asymmetry. There is normal sternocleidomastoid and trapezius strength bilaterally. Tongue is midline with good strength bilaterally. Neck is with somewhat limited of motion without discomfort. There are no cervical bruits. There are no cranial or ocular bruits. Heart is without murmur. Cervical, thoracic, and lumbar spine are nontender to palpation. Gait is very poor and she needs the assistance of water to take a few steps. Stance is unstable and she tends to sway backwards. Sitting up in bed with feet dangling she is fairly stable. The patient has an obvious moderate resting tremor in the right hand which waxes and wanes. The left hand has minimal resting tremor at times. With outstretched arms there is no drift. There are no postural or action tremors. There is no ataxia with [id number] testing. There is good facility in the hands. There are no other abnormal involuntary movements noted. The patient has some mild bradykinesia but doesn't have a significant masked face. Motor strength is 5/5 diffusely in the arms bilaterally including deltoids, biceps, brachioradialis, wrist flexors and extensors, production designer, and intrinsic hand muscles. Motor strength is 5/5 diffusely in the legs bilaterally including hip flexors, quadriceps, hamstring, gastrocnemius, tibialis anterior, tibialis posterior, and peroneii muscles bilaterally. Toe extensors are normal and there is good bulk in the extensor digitorum brevis muscle bilaterally. The limbs have mildly increased tone right greater than left side with the right upper extremity having the most cogwheel rigidity although it is still relatively mild. She has no spasticity in the limbs and no focal atrophy. There are no fasciculations. Sensory examination is relatively intact to pin and touch diffusely. Reflexes are 1/4 in the biceps, triceps, brachioradialis, and quadriceps tendons bilaterally. Achilles tendon reflexes are absent bilaterally. Toes are downgoing with plantar stimulation bilaterally. Peripheral pulses are present and of normal quality distally in all four limbs. There is no peripheral edema noted. Laboratory Results Past 24 Hours: 09/05/16 14:52 Red Blood Count 3.76, Mean Corpuscular Volume 91.5, Mean Corpuscular Hemoglobin 31.9, Mean Corpuscular Hemoglobin Concent 34.9, Mean Platelet Volume 8.6, Neutrophils (%) (Auto) 57.9, Lymphocytes (%) (Auto) 23.0, Monocytes (%) (Auto) 13.0, Eosinophils (%) (Auto) 5.3, Basophils (%) (Auto) 0.4, Neutrophils # (Auto ) 4.15, Lymphocytes # (Auto) 1.65, Monocytes # (Auto) 0.93, Eosinophils # (Auto ) 0.38, Basophils # (Auto) 0.03 09/05/16 14:52 Test 09/05/16 14:43 09/05/16 14:52 Bedside Prothrombin Time INR 1.0 (0.9-1.1) Bedside Glucose 112 mg/dl (70-90) White Blood Count 7.17 K/uL (4.8-10.8) Red Blood Count 3.76 M/uL (4.2-5.4) Hemoglobin 12.0 g/dL (12.0-16.0) Hematocrit 34.4 % (37-47) Mean Corpuscular Volume 91.5 fL (80-100) Mean Corpuscular Hemoglobin 31.9 pg (25-34) Mean Corpuscular Hemoglobin Concent 34.9 g/dl (32-36) Platelet Count 282 K/uL (130-400) Mean Platelet Volume 8.6 fL (7.4-10.4) Neutrophils (%) (Auto) 57.9 % Lymphocytes (%) (Auto) 23.0 % Monocytes (%) (Auto) 13.0 % Eosinophils (%) (Auto) 5.3 % Basophils (%) (Auto) 0.4 % Neutrophils # (Auto) 4.15 K/uL (1.4-6.5) Lymphocytes # (Auto) 1.65 K/uL (1.2-3.4) Monocytes # (Auto) 0.93 K/uL (0.11-0.59) Eosinophils # (Auto) 0.38 K/uL (0-0.5) Basophils # (Auto) 0.03 K/uL (0-0.2) RDW Standard Deviation 46.2 fL (36.4-46.3) RDW Coefficient of Variation 13.8 % (11.5-14.5) Immature Granulocyte % (Auto) 0.4 % Immature Granulocyte # (Auto) 0.03 K/uL (0.00-0.02) Prothrombin Time 10.6 SECONDS (9.0-12.0) Prothromb Time International Ratio 1.0 (0.9-1.1) Activated Partial Thromboplast Time 26.4 SECONDS (21.0-31.0) Partial Thromboplastin Ratio 1.0 Anion Gap 8.0 mmol/L (3-11) Est Creatinine Clear Calc Drug Dose 32.8 ml/min Estimated GFR () 54.5 Estimated GFR (Non- 47.0 BUN/Creatinine Ratio 20.1 (10-20) Calcium Level 8.6 mg/dl (8.5-10.1) Total Creatine Kinase 40 U/L (26-192) Creatine Kinase MB < 0.5 ng/ml (0.5-3.6) Creatine Kinase MB Ratio (0-3.0) Troponin I < 0.015 ng/ml (0-0.045) Triglycerides Level 164 mg/dl (0-150) Cholesterol Level 150 mg/dl (0-200) HDL Cholesterol 67 mg/dl LDL Cholesterol, Calculated 50 mg/dl VLDL Cholesterol, Calculated 33 mg/dl Cholesterol/HDL Ratio 2.2 Impression 1. Episode August 31 consistent with a type of expressive aphasia, likely TIA. The patient has no evidence of a CVA on exam today. CT scan of the head was unremarkable. Nevertheless a small stroke cannot entirely be excluded. Risk factors for stroke include hypertension and diabetes 2. Parkinson's disease This is mild to moderate on medication currently. This condition is stable compared to baseline on Sinemet and Requip. 3. 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 4. 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 5. Old, chronic small vessel ischemic disease seen on MRI in the past 6. Restless leg syndrome, controlled on Requip 7. History of depression, stable on current dose of venlafaxine 8. History of hypertension with variable reading since admission. Currently controlled. Plan 1. MRI of the brain, with and without contrast, to evaluate for small stroke and any progression of chronic cerebral ischemia. 2. Echocardiogram 3. Recommend initiating 81 mg aspirin tablet daily. 4. With her advanced age and cholesterol of 150, I do not believe she is a candidate for high-dose statins. There is evidence that high-dose statins in this age group increased cerebral bleeding risk. 5. Physical and occupational therapy and consider rehabilitation stay at [facility] prior to returning to [facility]. 6. When discharge the patient will follow-up with Dr. Loyd who is her regular neurologist. Otherwise she will need physical therapy and gait training at [facility]. She is a significant fall risk given her poor vision and Parkinson's disease. She should not be allowed to walk on her own, although she is using a walker. I will follow I spoke with Dr. Sandy regarding this case including differential diagnosis and treatment options.
[2016-09-06 11:47] VITALS: BP 145/71; PULSE 52; TEMP 36.7; O2SAT 93
[2016-09-06] MEDS ORDERED: GADAVIST IV PRN (12:30)
--- NOTE | 2016-09-06 12:41 | DIAGNOSTIC IMAGING REPORT ---
MRI OF THE BRAIN WITHOUT AND WITH IV CONTRAST CLINICAL HISTORY: CVA, slurred speech COMPARISON STUDY: Head CT dated 09/05/2016, MRI the brain dated 04/02/2014 TECHNIQUE: MRI of the brain was performed from the vertex to the skull base utilizing various T1 and T2 weighted sequences. Following the IV administration of 5 mL of Gadavist contrast, additional enhanced images were obtained. FINDINGS: Sagittal T1, axial diffusion, proton density and T2 weighted axial, coronal FLAIR, and pre and post axial T1-weighted images were acquired. These were supplemented with post gadolinium coronal T1 weighted images. No intra or extra-axial mass lesions are visualized. Axial diffusion-weighted images reveal no evidence of acute or subacute infarction. There is no evidence of ventricular dilatation. Proton density T2-weighted and FLAIR images reveal extensive foci of increased T2 signal within the white matter, likely on a small vessel basis. This is similar to the prior 2013 study There are no abnormal flow voids. There is no evidence of pathologic enhancement. There is abnormal marrow signal within the odontoid, C5 and C6 vertebra. Correlation with a cervical spine series is recommended. IMPRESSION: 1. No acute intracranial findings 2. No evidence of acute or subacute infarction 3. No evidence of intracranial mass 4. Extensive white matter disease likely on a small vessel basis 5. Abnormal marrow signal involving the odontoid, and C5 and C6 vertebra. Correlation with a cervical spine series is recommended. Electronically signed by: Shawn Engel M.D. 09/06/2016 12:40 PM Dictated Date/Time: 09/06/2016 12:33 PM
[2016-09-06] MEDS: VENLAFAXINE HCL XR 75 MG CAPXR PO SCH (12:46)
[2016-09-06] MEDS: ROPINIROLE HCL 0.25 MG TAB PO SCH (12:46)
[2016-09-06] MEDS: DOCUSATE SODIUM/SENNA 50/8.6MG TAB PO SCH (12:47)
--- NOTE | 2016-09-06 12:50 | ECHOCARDIOGRAM REPORT ---
*NOTICE TO RECEIVING [employer] This information is strictly Confidential and protected under [place] law. [place] law prohibits you from making any further disclosure of this information unless further disclosure is expressly permitted by the written consent of the person to whom it pertains or is authorized by law. A general authorization for the release of medical or other information is not sufficient for this purpose. Hospital accepts no responsibility if the information is made available to any other person, INCLUDING THE PATIENT. Interpretation Summary * Name: EDELMIRA ALMAZAN Study Date: 09/06/2016 10:42 AM BP: 132/79 mmHg * Patient Location: [facility] HR: 86 * : 1935 (M/d/yyyy) Gender: Female Height: 61 in * Age: 81 yrs Ethnicity: CA Weight: 121 lb * Ordering Physician: ADENIKE MURCIA * Referring Physician: TWIN * Performed By: Aarti Diaz RCS * * Reason For Study: CVA * BSA: 1.5 m2 * -- Conclusions -- * Left ventricular systolic function is low normal. * Grade I diastolic dysfunction, (abnormal relaxation pattern). * There are regional wall motion abnormalities as specified. * There is mild to moderate mitral regurgitation. Procedure Details * A complete two-dimensional transthoracic echocardiogram was performed (2D, M-mode, Doppler and color flow Doppler). * A saline contrast injection was performed to assess for cardiac shunting. * The injection was performed through an intravenous line in the left arm. * The attending nurse who injected the saline contrast was ARIANNA Vora RN. * A total of 20 cc of agitated saline was given. Left Ventricle * The left ventricle is normal in size. * There is normal left ventricular wall thickness. * Left ventricular systolic function is low normal. * EF approximately 50% * Grade I diastolic dysfunction, (abnormal relaxation pattern). * There are regional wall motion abnormalities as specified. * Poor endocardial definition. There is moderate hypokinesis of the inferior and posterior salcedo from mid ventricle to apex Right Ventricle * The right ventricle is grossly normal size. * The right ventricular systolic function is normal. Atria * The left atrial size is normal. * Right atrial size is normal. * Cannot exclude PFO Mitral Valve * Calcified mitral apparatus. * There is mild to moderate mitral regurgitation. Tricuspid Valve * The tricuspid valve is not well visualized, but is grossly normal. * There is trace tricuspid regurgitation. Aortic Valve * The aortic valve is normal in structure and function. * No hemodynamically significant valvular aortic stenosis. * There is no significant aortic regurgitation. Great Vessels * The aortic root and proximal ascending aorta are normal sized. Pericardium/Pleural * There is no pericardial effusion. MMode 2D Measurements and Calculations IVSd 1.1 cm IVSs 1.1 cm LVIDd 4.9 cm LVIDs 3.5 cm LVPWd 0.99 cm LVPWs 1.7 cm IVS/LVPW 1.1 FS 28.3 % EDV(Teich) 115.4 ml ESV(Teich) 52.5 ml EF(Teich) 54.5 % EDV(cubed) 121.2 ml ESV(cubed) 44.6 ml EF(cubed) 63.2 % % IVS thick 5.1 % % LVPW thick 75.6 % LV mass(C)d 186.5 grams LV mass(C)dI 122.2 grams/m\S\2 LV mass(C)s 182.8 grams LV mass(C)sI 119.8 grams/m\S\2 CO(Teich) 4.8 l/min CI(Teich) 3.1 l/min/m\S\2 SV(Teich) 62.9 ml SI(Teich) 41.2 ml/m\S\2 CO(cubed) 5.8 l/min CI(cubed) 3.8 l/min/m\S\2 SV(cubed) 76.6 ml SI(cubed) 50.2 ml/m\S\2 Ao root diam 2.9 cm Ao root area 6.8 cm\S\2 ACS 1.4 cm LA dimension 3.7 cm LA/Ao 1.2 LVAd ap4 28.1 cm\S\2 LVLd ap4 7.6 cm EDV(MOD-sp4) 86.0 ml LVAs ap4 16.6 cm\S\2 LVLs ap4 6.7 cm ESV(MOD-sp4) 35.0 ml EF(MOD-sp4) 59.3 % LVAd ap2 26.2 cm\S\2 LVLd ap2 7.6 cm EDV(MOD-sp2) 76.0 ml LVAs ap2 15.0 cm\S\2 LVLs ap2 6.3 cm ESV(MOD-sp2) 31.0 ml EF(MOD-sp2) 59.2 % CO(MOD-sp4) 3.9 l/min CI(MOD-sp4) 2.5 l/min/m\S\2 SV(MOD-sp4) 51.0 ml SI(MOD-sp4) 33.4 ml/m\S\2 CO(MOD-sp2) 3.4 l/min CI(MOD-sp2) 2.2 l/min/m\S\2 SV(MOD-sp2) 45.0 ml SI(MOD-sp2) 29.5 ml/m\S\2 Doppler Measurements and Calculations MV E max lon 94.6 cm/sec MV A max lon 140.5 cm/sec MV E/A 0.67 MV P1/2t max lon 97.7 cm/sec MV P1/2t 75.3 msec MVA(P1/2t) 2.9 cm\S\2 MV dec slope 380.1 cm/sec\S\2 MV dec time 0.15 sec Ao V2 max 131.2 cm/sec Ao max PG 6.9 mmHg Ao max PG (full) 4.6 mmHg LV V1 max PG 2.3 mmHg LV V1 max 75.7 cm/sec MR max lon 501.0 cm/sec MR max PG 100.4 mmHg PA V2 max 105.1 cm/sec PA max PG 4.4 mmHg PI max lon 148.5 cm/sec PI max PG 8.8 mmHg PI dec slope 96.8 cm/sec\S\2 PI P1/2t 449.4 msec
[2016-09-06 14:32] VITALS: BP 93/58; PULSE 99; TEMP 37; O2SAT 93
--- NOTE | 2016-09-06 17:40 | Progress Note ---
Subjective Date of Service: Sep 06, 2016. Subjective Pt evaluation today including: conversation w/ patient, physical exam, chart review Voiding: no voiding problems Problem List Medical Problems: (1) Altered mental status Status: Acute (2) Contusion of left hip and thigh Status: Acute (3) Expressive aphasia Status: Acute (4) Fall Status: Acute (5) Fall Status: Acute (6) Inability to ambulate due to left knee Status: Acute (7) Left knee sprain Status: Acute (8) TIA (transient ischemic attack) Status: Acute (9) TIA (transient ischemic attack) Status: Acute Review of Systems Respiratory: No cough, No dyspnea at rest, No dyspnea on exertion, No hemoptysis, No problem reported, No see HPI, No shortness of breath, No sputum, No wheezing Cardiac: No PND, No chest pain, No claudication, No edema, No orthopnea, No palpitations, No problem reported, No see HPI Neurologic: + problem reported (left sided VILLA) Medications Medications (Trade) Dose Ordered Sig/Joceline Route Start Time Stop Time Status Last Admin Dose Admin Acetaminophen (Tylenol Tab) 650 mg Q4H PRN PO 09/05/16 18:45 10/05/16 18:44 09/06/16 08:58 650 MG Carbidopa/Levodopa (Sinemet Cr 25/ 100MG Tab) 1.5 tab QID PO 09/05/16 21:00 10/05/16 20:59 09/06/16 16:58 1.5 TAB Ferrous Sulfate (Feosol Tab) 325 mg BIDM PO 09/06/16 08:00 10/06/16 07:59 09/06/16 16:57 325 MG Salmeterol Xinafoate/ Fluticasone (Advair Diskus 500/50 Inh) 1 puff BID INH 09/05/16 22:00 10/05/16 21:59 09/06/16 08:27 1 PUFF Hydroxyzine HCl (Vistaril Tab) 10 mg HS PRN PO 09/05/16 18:45 10/05/16 18:44 09/06/16 04:48 10 MG Metoprolol Tartrate (Lopressor Tab) 25 mg BID PO 09/05/16 21:00 10/05/16 20:59 09/06/16 08:27 25 MG Montelukast Sodium (Singulair Tab) 10 mg HS PO 09/05/16 21:00 10/05/16 20:59 09/05/16 21:48 10 MG Pantoprazole Sodium (Protonix Tab) 40 mg BID PO 09/05/16 21:00 10/05/16 20:59 09/06/16 08:28 40 MG Ropinirole HCl (Requip Tab) 0.5 mg DAILY@1200 PO 09/06/16 12:00 10/06/16 11:59 09/06/16 12:46 0.5 MG Ropinirole HCl (Requip Tab) 1 mg HS PO 09/05/16 21:00 10/05/16 20:59 09/05/16 21:50 1 MG Senna/Docusate Sodium (Senokot S Tab) 1 tab DAILY@1200 PO 09/06/16 12:00 10/06/16 11:59 09/06/16 12:47 1 TAB Venlafaxine HCl (effeXOR EXTENDED REL CAP) 75 mg DAILY@1200 PO 09/06/16 12:00 10/06/16 11:59 09/06/16 12:46 75 MG Lovastatin (Mevacor Tab) 40 mg DAILY PO 09/06/16 09:00 10/06/16 08:59 09/06/16 08:28 40 MG Acetaminophen (Tylenol Tab) 650 mg STK-MED ONCE .ROUTE 09/05/16 19:25 09/05/16 19:29 DC 09/05/16 19:32 650 MG Objective Vital Signs Date Time Temp Pulse Resp B/P Pulse Ox O2 Delivery O2 Flow Rate FiO2 09/06/16 16:00 Room Air 09/06/16 14:32 37.0 99 18 93/58 93 Room Air 09/06/16 12:00 Room Air 09/06/16 11:47 36.7 52 18 145/71 93 09/06/16 08:00 Room Air 09/06/16 07:34 36.8 86 18 132/79 96 Room Air 09/06/16 04:20 36.6 77 18 115/73 97 Room Air 09/06/16 04:00 Room Air 09/06/16 00:05 Room Air 09/05/16 23:32 36.7 77 16 114/72 95 Room Air 09/05/16 21:14 37.0 90 20 157/87 98 Room Air 09/05/16 19:39 96 20 161/77 97 Room Air 09/05/16 18:28 98 Physical Exam General Appearance: WD/WN, no apparent distress Eyes: normal inspection, PERRL, EOMI ENT: normal ENT inspection, hearing grossly normal, TMs normal Neck: supple, no adenopathy, thyroid normal Respiratory/Chest: chest non-tender, lungs clear, normal breath sounds Cardiovascular: regular rate, rhythm, no edema, no gallop, no JVD Abdomen: normal bowel sounds, non tender, soft Extremities: normal range of motion, non-tender, normal inspection 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: 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 tested Skin: normal color, warm/dry Lymphatic: no adenopathy Laboratory Results 09/05/16 14:52 Red Blood Count 3.76, Mean Corpuscular Volume 91.5, Mean Corpuscular Hemoglobin 31.9, Mean Corpuscular Hemoglobin Concent 34.9, Mean Platelet Volume 8.6, Neutrophils (%) (Auto) 57.9, Lymphocytes (%) (Auto) 23.0, Monocytes (%) (Auto) 13.0, Eosinophils (%) (Auto) 5.3, Basophils (%) (Auto) 0.4, Neutrophils # (Auto ) 4.15, Lymphocytes # (Auto) 1.65, Monocytes # (Auto) 0.93, Eosinophils # (Auto ) 0.38, Basophils # (Auto) 0.03 09/05/16 14:52 Test 09/05/16 00:00 09/05/16 14:43 09/05/16 14:52 Urine Color YELLOW Urine Appearance CLEAR (CLEAR) Urine pH 7.0 (4.5-7.5) Urine Specific [place] 1.011 (1.000-1.030) Urine Protein NEG (NEG) Urine Glucose (UA) NEG (NEG) Urine Ketones NEG (NEG) Urine Occult Blood NEG (NEG) Urine Nitrite NEG (NEG) Urine Bilirubin NEG (NEG) Urine Urobilinogen NEG (NEG) Urine Leukocyte Esterase NEG (NEG) Urine WBC (Auto) 0 /hpf (0-5) Urine RBC (Auto) 0-4 /hpf (0-4) Urine Hyaline Casts (Auto) 1-5 /lpf (0-5) Urine Epithelial Cells (Auto) 0-5 /lpf (0-5) Urine Bacteria (Auto) NEG (NEG) Urine Opiates Screen NEG (NEG) Urine Methadone, Qualitative NEG (NEG) Urine Barbiturates NEG (NEG) Urine Phencyclidine (PCP) Level NEG (NEG) Ur Amphetamine/Methamphetamine NEG (NEG) MDMA (Ecstasy) Screen NEG (NEG) Urine Benzodiazepines Screen NEG (NEG) Urine Cocaine Metabolite NEG (NEG) Urine Marijuana (THC) NEG (NEG) Bedside Prothrombin Time INR 1.0 (0.9-1.1) Bedside Glucose 112 mg/dl (70-90) White Blood Count 7.17 K/uL (4.8-10.8) Red Blood Count 3.76 M/uL (4.2-5.4) Hemoglobin 12.0 g/dL (12.0-16.0) Hematocrit 34.4 % (37-47) Mean Corpuscular Volume 91.5 fL (80-100) Mean Corpuscular Hemoglobin 31.9 pg (25-34) Mean Corpuscular Hemoglobin Concent 34.9 g/dl (32-36) Platelet Count 282 K/uL (130-400) Mean Platelet Volume 8.6 fL (7.4-10.4) Neutrophils (%) (Auto) 57.9 % Lymphocytes (%) (Auto) 23.0 % Monocytes (%) (Auto) 13.0 % Eosinophils (%) (Auto) 5.3 % Basophils (%) (Auto) 0.4 % Neutrophils # (Auto) 4.15 K/uL (1.4-6.5) Lymphocytes # (Auto) 1.65 K/uL (1.2-3.4) Monocytes # (Auto) 0.93 K/uL (0.11-0.59) Eosinophils # (Auto) 0.38 K/uL (0-0.5) Basophils # (Auto) 0.03 K/uL (0-0.2) RDW Standard Deviation 46.2 fL (36.4-46.3) RDW Coefficient of Variation 13.8 % (11.5-14.5) Immature Granulocyte % (Auto) 0.4 % Immature Granulocyte # (Auto) 0.03 K/uL (0.00-0.02) Prothrombin Time 10.6 SECONDS (9.0-12.0) Prothromb Time International Ratio 1.0 (0.9-1.1) Activated Partial Thromboplast Time 26.4 SECONDS (21.0-31.0) Partial Thromboplastin Ratio 1.0 Anion Gap 8.0 mmol/L (3-11) Est Creatinine Clear Calc Drug Dose 32.8 ml/min Estimated GFR () 54.5 Estimated GFR (Non- 47.0 BUN/Creatinine Ratio 20.1 (10-20) Calcium Level 8.6 mg/dl (8.5-10.1) Total Creatine Kinase 40 U/L (26-192) Creatine Kinase MB < 0.5 ng/ml (0.5-3.6) Creatine Kinase MB Ratio (0-3.0) Troponin I < 0.015 ng/ml (0-0.045) Triglycerides Level 164 mg/dl (0-150) Cholesterol Level 150 mg/dl (0-200) HDL Cholesterol 67 mg/dl LDL Cholesterol, Calculated 50 mg/dl VLDL Cholesterol, Calculated 33 mg/dl Cholesterol/HDL Ratio 2.2 Assessment and Plan VILLA: ? Etiology. MRI head is neg. for infarct or bleed. Will continue with tylenol. Appreciate Neuro input,, carotid US shows moderate right ICA stenosis Hx of PD: Cont. with Carbidopa/Levodopa and Ropinirole Hx HLD: Cont. Statin HTN: Cont metoprolol B.asthma; On Montelukast and Advair Diskus Depression: on Venlafaxine DVT prophylaxis: Seq. TEDs Code status: Full code per patient POA: Lucretia Murray (Dtr) [phone]
[2016-09-06 20:04] VITALS: BP 122/72; PULSE 92; TEMP 36.7; O2SAT 94
[2016-09-06] MEDS: ROPINIROLE HCL 1 MG TAB PO SCH (20:57)
[2016-09-06] MEDS: MONTELUKAST SOD 10 MG TAB PO SCH (20:58)
[2016-09-07] VITALS (7 sets, daily range): BP systolic 124–171; BP diastolic 80–94; PULSE 86–106; TEMP 36.6–36.9; O2SAT 95–99
[2016-09-07] MEDS: ACETAMINOPHEN 325 MG TAB PO PRN (05:45)
[2016-09-07 07:00] LABS: BASO % 0.6 %; BASO ABS # 0.04 K/uL (0-0.2); COMPLETE YES; EOS % 7.5 %; HEMATOCRIT 37.2 % (37-47); IG% 0.4 %; LYMPH % 24.4 %; LYMPH ABS # 1.68 K/uL (1.2-3.4); MEAN CELL VOLUME 92.1 fL (80-100); MEAN CORPUSCULAR HEMOGLOBIN 31.9 pg (25-34); MEAN CORPUSCULAR HGB CONC 34.7 g/dl (32-36); MEAN PLATELET VOLUME 9.1 fL (7.4-10.4); NEUT % 55.1 %; PLATELET COUNT 283 K/uL (130-400); RED BLOOD COUNT 4.04 M/uL (4.2-5.4); WHITE BLOOD COUNT 6.89 K/uL (4.8-10.8)
--- NOTE | 2016-09-07 07:12 | Progress Note ---
Subjective Date of Service: Sep 07, 2016. Subjective Pt evaluation today including: conversation w/ patient, physical exam, chart review Problem List Medical Problems: (1) Altered mental status Status: Acute (2) Contusion of left hip and thigh Status: Acute (3) Expressive aphasia Status: Acute (4) Fall Status: Acute (5) Fall Status: Acute (6) Inability to ambulate due to left knee Status: Acute (7) Left knee sprain Status: Acute (8) TIA (transient ischemic attack) Status: Acute (9) TIA (transient ischemic attack) Status: Acute Objective Vital Signs Date Time Temp Pulse Resp B/P Pulse Ox O2 Delivery O2 Flow Rate FiO2 09/07/16 04:05 Room Air 09/07/16 00:05 Room Air 09/07/16 00:02 36.9 86 18 124/80 95 09/06/16 20:04 36.7 92 18 122/72 94 Room Air 09/06/16 20:00 Room Air 09/06/16 16:00 Room Air 09/06/16 14:32 37.0 99 18 93/58 93 Room Air 09/06/16 12:00 Room Air 09/06/16 11:47 36.7 52 18 145/71 93 09/06/16 08:00 Room Air 09/06/16 07:34 36.8 86 18 132/79 96 Room Air Physical Exam General Appearance: WD/WN, no apparent distress Eyes: normal inspection, PERRL ENT: normal ENT inspection, hearing grossly normal Neck: supple, no adenopathy, thyroid normal Respiratory/Chest: chest non-tender, lungs clear, normal breath sounds, no respiratory distress Cardiovascular: regular rate, rhythm, no edema, no gallop, no JVD Abdomen: normal bowel sounds, non tender Extremities: + pertinent finding (Mass right shoulder) 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: 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-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 nml as tested, alert, oriented x 3 Laboratory Results Last 24 Hours Test 09/07/16 06:25 White Blood Count 6.89 K/uL Red Blood Count 4.04 M/uL Hemoglobin 12.9 g/dL Hematocrit 37.2 % Mean Corpuscular Volume 92.1 fL Mean Corpuscular Hemoglobin 31.9 pg Mean Corpuscular Hemoglobin Concent 34.7 g/dl Platelet Count 283 K/uL Mean Platelet Volume 9.1 fL Neutrophils (%) (Auto) 55.1 % Lymphocytes (%) (Auto) 24.4 % Monocytes (%) (Auto) 12.0 % Eosinophils (%) (Auto) 7.5 % Basophils (%) (Auto) 0.6 % Neutrophils # (Auto) 3.79 K/uL Lymphocytes # (Auto) 1.68 K/uL Monocytes # (Auto) 0.83 K/uL Eosinophils # (Auto) 0.52 K/uL Basophils # (Auto) 0.04 K/uL RDW Standard Deviation 46.3 fL RDW Coefficient of Variation 13.7 % Immature Granulocyte % (Auto) 0.4 % Immature Granulocyte # (Auto) 0.03 K/uL Patient: EDELMIRA ALMAZAN Address1: [address] [facility] Rec: [id number] Address2: Acct ID: [id number] [facility] Zip: [place] [address] Date: 1935 Sex: F Room/Bed: [facility] Ref Phy: Artemio Cleary M.D. SC: C.MED Att Phy: Stas Sandy M.D. Report #: [id number] Radha Phy: Artemio Cleary M.D. Test: [facility] Admit Phy: Stas Sandy M.D. Pre Billing Specialist: DEION Interpreting Phy: Shawn Engel M.D. Diagnosis: SLURRING OF SPEECH Ordering Phy: Stas Sandy M.D. Service Date: 09/06/16 Admit Date: 09/05/1702/27/17 MNE: [id number] CONF: DICTATED BY: Shawn Engel M.D.]] CC: Stas Sandy M.D. Guillard, Frank, M.D. Endcc: [~ rep ct add3]] MRI OF THE BRAIN WITHOUT AND WITH IV CONTRAST CLINICAL HISTORY: CVA, slurred speech COMPARISON STUDY: Head CT dated 09/05/2016, MRI the brain dated 04/02/2014 TECHNIQUE: MRI of the brain was performed from the vertex to the skull base utilizing various T1 and T2 weighted sequences. Following the IV administration of 5 mL of Gadavist contrast, additional enhanced images were obtained. FINDINGS: Sagittal T1, axial diffusion, proton density and T2 weighted axial, coronal FLAIR, and pre and post axial T1-weighted images were acquired. These were supplemented with post gadolinium coronal T1 weighted images. No intra or extra-axial mass lesions are visualized. Axial diffusion-weighted images reveal no evidence of acute or subacute infarction. There is no evidence of ventricular dilatation. Proton density T2-weighted and FLAIR images reveal extensive foci of increased T2 signal within the white matter, likely on a small vessel basis. This is similar to the prior 2013 study There are no abnormal flow voids. There is no evidence of pathologic enhancement. There is abnormal marrow signal within the odontoid, C5 and C6 vertebra. Correlation with a cervical spine series is recommended. IMPRESSION: 1. No acute intracranial findings 2. No evidence of acute or subacute infarction 3. No evidence of intracranial mass 4. Extensive white matter disease likely on a small vessel basis 5. Abnormal marrow signal involving the odontoid, and C5 and C6 vertebra. Correlation with a cervical spine series is recommended. Electronically signed by: Shawn Engel M.D. 09/06/2016 12:40 PM Dictated Date/Time: 09/06/2016 12:33 PM [~ rep ct add3]] BILATERAL CAROTID DOPPLER STUDY HISTORY: Mental status change TIA COMPARISON: None. TECHNIQUE: Real-time, grayscale, and color Doppler sonography of the carotid arteries was performed. Imaging reviewed in the transverse and longitudinal planes. All measurements were calculated based on NASCET criteria. FINDINGS: Antegrade flow is seen in the bilateral vertebral arteries. The brachial pressures are hemodynamically similar. Moderate to significant plaque formation bilaterally The peak systolic velocity within the right ICA is 87. The right systolic ratio is 1.5. The peak systolic velocity within the left ICA is 104. The left systolic ratio is 1.2. IMPRESSION: 1. Moderate to rather significant plaque dimension bilaterally. 2. Moderate stenosis right external carotid artery.. 3. No significant stenotic process of the common or internal carotid arteries. 4. No significant change compared to the prior study Electronically signed by: Terry Chavis M.D. 09/05/2016 8:38 PM Dictated Date/Time: 09/05/2016 8:36 PM Assessment and Plan VILLA: ? Etiology. MRI head is neg. for infarct or bleed. Will continue with tylenol. Appreciate Neuro input,, carotid US shows moderate right ICA stenosis. Will check CT C spine are per Neuro recommendations. If WNL can be txed to [place] later today. Hx of PD: Cont. with Carbidopa/Levodopa and Ropinirole Hx HLD: Cont. Statin HTN: Cont metoprolol B.asthma; On Montelukast and Advair Diskus Depression: on Venlafaxine DVT prophylaxis: Seq. TEDs Code status: Full code per patient POA: Lucretia Murray (Dtr) [phone] Discharge planning: alf facility (Admitted from [place])
[2016-09-07 07:33] LABS: BUN/CREATININE RATIO 20.4 (10-20); CALCIUM 9.1 mg/dl (8.5-10.1); CREATININE 0.84 mg/dl (0.60-1.20)
[2016-09-07] MEDS: FERROUS SULFATE 325 MG TAB PO SCH ×2 (08:00→17:17)
--- NOTE | 2016-09-07 08:14 | Neurology Progress Notes ---
Neurology Progress Note Date of Service Sep 07, 2016. Subjective Patient had a significant headache last night but does not have a headache now. She is in no pain. Her restless leg syndrome has been bothering her and she feels that she's been more irritable since in the hospital. After discussion it sounds more like she has anxiety. Nursing reports no new medical problems overnight. MRI of the brain showed no acute changes. There was moderate to extensive old small vessel ischemic changes diffusely in the white matter. There was significant generalized atrophy as well. In addition, there was signal change in the odontoid and other cervical spinal bone. CBC was unremarkable. Blood pressure was unremarkable. Echocardiogram showed some mild mitral regurgitation and some regional wall abnormalities but was otherwise unremarkable. Objective Date Time Temp Pulse Resp B/P Pulse Ox O2 Delivery O2 Flow Rate FiO2 09/07/16 07:25 36.6 95 18 147/84 96 Room Air 09/07/16 04:05 Room Air 09/07/16 00:05 Room Air 09/07/16 00:02 36.9 86 18 124/80 95 09/06/16 20:04 36.7 92 18 122/72 94 Room Air 09/06/16 20:00 Room Air 09/06/16 16:00 Room Air 09/06/16 14:32 37.0 99 18 93/58 93 Room Air 09/06/16 12:00 Room Air 09/06/16 11:47 36.7 52 18 145/71 93 Last 24 Hours Test 09/07/16 06:25 White Blood Count 6.89 K/uL Red Blood Count 4.04 M/uL Hemoglobin 12.9 g/dL Hematocrit 37.2 % Mean Corpuscular Volume 92.1 fL Mean Corpuscular Hemoglobin 31.9 pg Mean Corpuscular Hemoglobin Concent 34.7 g/dl Platelet Count 283 K/uL Mean Platelet Volume 9.1 fL Neutrophils (%) (Auto) 55.1 % Lymphocytes (%) (Auto) 24.4 % Monocytes (%) (Auto) 12.0 % Eosinophils (%) (Auto) 7.5 % Basophils (%) (Auto) 0.6 % Neutrophils # (Auto) 3.79 K/uL Lymphocytes # (Auto) 1.68 K/uL Monocytes # (Auto) 0.83 K/uL Eosinophils # (Auto) 0.52 K/uL Basophils # (Auto) 0.04 K/uL RDW Standard Deviation 46.3 fL RDW Coefficient of Variation 13.7 % Immature Granulocyte % (Auto) 0.4 % Immature Granulocyte # (Auto) 0.03 K/uL Sodium Level 142 mmol/L Potassium Level 4.0 mmol/L Chloride Level 106 mmol/L Carbon Dioxide Level 28 mmol/L Anion Gap 8.0 mmol/L Blood Urea Nitrogen 17 mg/dl Creatinine 0.84 mg/dl Est Creatinine Clear Calc Drug Dose 39.6 ml/min Estimated GFR () 75.5 Estimated GFR (Non- 65.2 BUN/Creatinine Ratio 20.4 Random Glucose 108 mg/dl Calcium Level 9.1 mg/dl Imaging: MRI OF THE BRAIN WITHOUT AND WITH IV CONTRAST CLINICAL HISTORY: CVA, slurred speech COMPARISON STUDY: Head CT dated 09/05/2016, MRI the brain dated 04/02/2014 TECHNIQUE: MRI of the brain was performed from the vertex to the skull base utilizing various T1 and T2 weighted sequences. Following the IV administration of 5 mL of Gadavist contrast, additional enhanced images were obtained. FINDINGS: Sagittal T1, axial diffusion, proton density and T2 weighted axial, coronal FLAIR, and pre and post axial T1-weighted images were acquired. These were supplemented with post gadolinium coronal T1 weighted images. No intra or extra-axial mass lesions are visualized. Axial diffusion-weighted images reveal no evidence of acute or subacute infarction. There is no evidence of ventricular dilatation. Proton density T2-weighted and FLAIR images reveal extensive foci of increased T2 signal within the white matter, likely on a small vessel basis. This is similar to the prior 2013 study There are no abnormal flow voids. There is no evidence of pathologic enhancement. There is abnormal marrow signal within the odontoid, C5 and C6 vertebra. Correlation with a cervical spine series is recommended. IMPRESSION: 1. No acute intracranial findings 2. No evidence of acute or subacute infarction 3. No evidence of intracranial mass 4. Extensive white matter disease likely on a small vessel basis 5. Abnormal marrow signal involving the odontoid, and C5 and C6 vertebra. Correlation with a cervical spine series is recommended. Electronically signed by: Shawn Engel M.D. 09/06/2016 12:40 PM Dictated Date/Time: 09/06/2016 12:33 PM Exam: She is awake and alert. Speech is without aphasia or dysarthria. Mood and affect seemed normal and appropriate. Vision is poor as usual but she can track. Extraocular eye muscles are intact without nystagmus. There is no facial droop. She does not have a masklike face There is very little in the way of bradykinesia and there is no significant rigidity in the limbs this morning. Strength is symmetrical and relatively normal throughout. There is very mild intermittent resting tremor of the right hand. Current Inpatient Medications Medications (Trade) Dose Ordered Sig/Joceline Route Start Time Stop Time Status Last Admin Dose Admin Acetaminophen (Tylenol Tab) 650 mg Q4H PRN PO 09/05/16 18:45 10/05/16 18:44 09/07/16 05:45 650 MG Zolpidem Tartrate (Ambien Tab) 5 mg HSZ PRN PO 09/05/16 18:45 10/05/16 18:44 09/06/16 23:54 5 MG Albuterol (Ventolin Hfa Inhaler) 2 puffs Q6H PRN INH 09/05/16 18:45 10/05/16 18:44 Carbidopa/Levodopa (Sinemet Cr 25/ 100MG Tab) 1.5 tab QID PO 09/05/16 21:00 10/05/16 20:59 09/06/16 20:57 1.5 TAB Ferrous Sulfate (Feosol Tab) 325 mg BIDM PO 09/06/16 08:00 10/06/16 07:59 09/06/16 16:57 325 MG Salmeterol Xinafoate/ Fluticasone (Advair Diskus 500/50 Inh) 1 puff BID INH 09/05/16 22:00 10/05/16 21:59 09/06/16 20:54 1 PUFF Hydroxyzine HCl (Vistaril Tab) 10 mg HS PRN PO 09/05/16 18:45 10/05/16 18:44 09/06/16 04:48 10 MG Metoprolol Tartrate (Lopressor Tab) 25 mg BID PO 09/05/16 21:00 10/05/16 20:59 09/06/16 20:55 25 MG Montelukast Sodium (Singulair Tab) 10 mg HS PO 09/05/16 21:00 10/05/16 20:59 09/06/16 20:58 10 MG Pantoprazole Sodium (Protonix Tab) 40 mg BID PO 09/05/16 21:00 10/05/16 20:59 09/06/16 20:55 40 MG Ropinirole HCl (Requip Tab) 0.5 mg DAILY@1200 PO 09/06/16 12:00 10/06/16 11:59 09/06/16 12:46 0.5 MG Ropinirole HCl (Requip Tab) 1 mg HS PO 09/05/16 21:00 10/05/16 20:59 09/06/16 20:57 1 MG Senna/Docusate Sodium (Senokot S Tab) 1 tab DAILY@1200 PO 09/06/16 12:00 10/06/16 11:59 09/06/16 12:47 1 TAB Triamcinolone Acetonide (Kenalog 0.1% Cream) 1 appln BID PRN EXT 09/05/16 18:45 10/05/16 18:44 Venlafaxine HCl (effeXOR EXTENDED REL CAP) 75 mg DAILY@1200 PO 09/06/16 12:00 10/06/16 11:59 09/06/16 12:46 75 MG Lovastatin (Mevacor Tab) 40 mg DAILY PO 09/06/16 09:00 10/06/16 08:59 09/06/16 08:28 40 MG Miscellaneous (Iv Fluids Completed) 1 ea PRN PRN N/A 09/05/16 19:45 09/05/17 19:44 Aspirin (Aspirin Chew) 81 mg DAILY PO 09/07/16 09:00 10/07/16 08:59 Gadobutrol (Gadavist) 5 mmol UD PRN IV 09/06/16 12:30 09/10/16 12:29 Impression 1. Episode August 31 consistent with a type of expressive aphasia, likely TIA. The patient has no evidence of a CVA on exam today. CT scan of the head was unremarkable. MRI of the brain did not show any new stroke. Risk factors for stroke include hypertension and diabetes 2. Parkinson's disease This is mild to moderate on medication currently. This condition is stable compared to baseline on Sinemet and Requip. 3. 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 4. 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 5. Significant, chronic small vessel ischemic disease seen on MRI 6. Restless leg syndrome, controlled on Requip 7. History of depression, stable on current dose of venlafaxine 8. History of hypertension with variable reading since admission. Currently controlled. 9. MRI showed signal change in some of the cervical spine bone, of uncertain significance or etiology Plan 1 continue 81 mg aspirin tablet daily. 2. With her advanced age and cholesterol of 150, I do not believe she is a candidate for high-dose statins. There is evidence that high-dose statins in this age group increased cerebral bleeding risk. 3. Physical and occupational therapy and consider rehabilitation stay at [facility] prior to returning to the [facility]. 4. Because of the abnormal bony signal in the cervical spine, seen on the MRI of the brain, this could be followed up with bone scan and MRI of the cervical spine. I will leave this to her hospitalist to decide whether to do it now or wait to get this as an outpatient. 4. When discharge the patient will follow-up with Dr. Loyd who is her regular neurologist. Otherwise she will need physical therapy and gait training at the [facility]. She is a significant fall risk given her poor vision and Parkinson's disease. She should not be allowed to walk on her own, although she is using a walker.
[2016-09-07] MEDS: FLUTICASONE/SALMETEROL (ADVAIR) 500/50 INH 14 PUFF INH SCH (08:48)
[2016-09-07] MEDS: METOPROLOL TARTRATE 25 MG TAB PO SCH (08:48)
[2016-09-07] MEDS: CARBIDOPA/LEVODOPA 25/100MG EXT REL TAB PO SCH ×3 (08:49→17:17)
[2016-09-07] MEDS: PANTOprazole SOD 40 MG TAB PO SCH (08:49)
[2016-09-07] MEDS: LOVASTATIN 20 MG TAB PO SCH (08:49)
[2016-09-07] MEDS ORDERED: ASPIRIN 81 MG CHEW PO SCH (09:00)
[2016-09-07] MEDS: VENLAFAXINE HCL XR 75 MG CAPXR PO SCH (12:49)
[2016-09-07] MEDS: ROPINIROLE HCL 0.25 MG TAB PO SCH (12:50)
[2016-09-07] MEDS: DOCUSATE SODIUM/SENNA 50/8.6MG TAB PO SCH (12:50)
--- NOTE | 2016-09-07 14:18 | DIAGNOSTIC IMAGING REPORT ---
CT OF THE CERVICAL SPINE CLINICAL HISTORY: Neck pain COMPARISON STUDY: No previous studies for comparison. CT DOSE: 254.30 mGy.cm TECHNIQUE: CT scan of the cervical spine was performed from the skull base to the thoracic inlet. Images are reviewed in the axial, sagittal, and coronal planes. IV contrast was not administered for this examination. FINDINGS: The visualized portions of the lung apices reveal no evidence of pneumothorax. The prevertebral soft tissues are normal. No fractures or traumatic subluxations are visualized. There is a slight reversal of the normal cervical lordosis. There are advanced multilevel degenerative changes present. Erosive changes involving the anterior arch of C1 and the odontoid are likely degenerative. Mild anterior subluxation of C3 on C4 is also likely degenerative. IMPRESSION: 1. No evidence of acute fracture or traumatic subluxation 2. Advanced multilevel degenerative change. Electronically signed by: Shawn Engel M.D. 09/07/2016 2:17 PM Dictated Date/Time: 09/07/2016 2:13 PM
--- NOTE | 2016-09-07 15:58 | Discharge Instructions ---
Discharge Instructions Date of Service Sep 07, 2016. Admission Reason for Admission: Slurring Of Speech Discharge Discharge Diagnosis / Problem: TIA Discharge Goals Goal(s): Learn about illness Activity Recommendations Activity Limitations: resume your previous activity Lifting Limitations: none Exercise/Sports Limitations: none May Resume Sexual Activity: when tolerated Shower/Bathe: no limitations Driving or Machine Use: no limitations . Instructions / Follow-Up Instructions / Follow-Up Follow up with PCP and Neurology in one to two weeks. Current Hospital Diet Patient's current hospital diet: AHA Diet (Heart Healthy) Discharge Diet Recommended Diet: AHA Diet (Heart Healthy) Pending Studies Studies pending at discharge: no Laboratory Results Hemoglobin A1c Test 07/20/16 13:44 Range/Units Estimated Average Glucose 126 mg/dl Hemoglobin A1c 6.0 H 4.5-5.6 % Lipid Panel Test 09/05/16 14:52 Range/Units Triglycerides Level 164 H 0-150 mg/dl Cholesterol Level 150 0-200 mg/dl HDL Cholesterol 67 mg/dl Cholesterol/HDL Ratio 2.2 LDL Cholesterol, Calculated 50 mg/dl Medical Emergencies . Who to Call and When: Medical Emergencies: If at any time you feel your situation is an emergency, please call 911 immediately. . Non-Emergent Contact Non-Emergency issues call your: Primary Care Provider . . "Provider Documentation" section prepared by Stas Sandy. VTE Core Measure Inpt VTE Proph given/why not?: SCD's
--- NOTE | 2016-09-07 16:03 | Discharge Summary ---
Discharge Summary Date of Service Sep 07, 2016. Discharge Summary Admission Date: Sep 05, 2016 at 18:34 Discharge Date: Sep 07, 2016 Discharge Disposition: [facility] facility ([facility]) Principal Diagnosis: TIA Problems/Secondary Diagnoses: Parkinson's disease Hyperlipidemia Consultations: Neurology Medication Reconciliation Continued Medications: Acetaminophen (Tylenol) 500 Mg Tab 500 MG PO Q4 PRN for Pain, TAB Albuterol Hfa (Ventolin Hfa) 200 Puffs/64906 Mcg Aers 2-4 PUFFS INH Q6H PRN for BREATHING/ASTHMA, #1 INHALER Carbidopa-Levodopa (Sinemet Cr 25MG/100MG) 1 Tab Tab 1.5 TAB PO QID for 30 Days, TAB Ferrous Sulfate (Ferrous Sulfate) 325 Mg Tab 325 MG PO BIDM for 30 Days, TAB Fluticasone Prop/Salmeterol (Advair Diskus 500-50 Mcg/Dose) 14 Puff/1 Inhaler Aerp 1 PUFF INH BID Hydroxyzine HCl (Hydroxyzine HCl) 10 Mg Tab 10 MG PO HS PRN for ITCHING/ANXIETY Lovastatin (Mevacor) 40 Mg Tab 40 MG PO DAILY, 0 Refills Melatonin (Melatonin) 3 Mg Tab 3 MG PO HS Metoprolol Tartrate (Lopressor) 25 Mg Tab 25 MG PO BID for 30 Days, TAB Montelukast Sodium (Singulair) 10 Mg Tab 10 MG PO HS, TAB Pantoprazole (Protonix) 40 Mg Tab 40 MG PO BID, 0 Refills Ropinirole (Requip) 0.5 Mg Tab 0.5 MG PO DAILY@1200, TAB Ropinirole HCl (Ropinirole HCl) 1 Mg Tab 1 MG PO HS for 30 Days, TAB Senna/Docusate Sod (Senokot S) 1 Tab Tab 1 TAB PO DAILY@1200, TAB Triamcinolone Acet (Aristocort 0.1%) 90 Appln/30 Gm Cr 1 APPLN TOP BID PRN for PRN Venlafaxine Hcl (Effexor Extended Rel) 75 Mg Capcr 75 MG PO DAILY@1200, CAP Discharge Exam Physical Exam: General Appearance: WD/WN, no apparent distress Eyes: normal inspection, PERRL, EOMI ENT: normal ENT inspection, hearing grossly normal, TMs normal Neck: supple, no adenopathy, thyroid normal Respiratory/Chest: chest non-tender, lungs clear, normal breath sounds, no respiratory distress Cardiovascular: regular rate, rhythm, no edema, no gallop, no JVD Abdomen / GI: normal bowel sounds, non tender, soft, no pulsatile mass Extremities: normal inspection, no calf tenderness, normal capillary refill 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 Etiology. MRI head is neg. for infarct or bleed. Will continue with tylenol. Appreciate Neuro input,, carotid US shows moderate right ICA stenosis.If WNL can be txed to [facility] later today. Hx of PD: Cont. with Carbidopa/Levodopa and Ropinirole Hx HLD: Cont. Statin HTN: Cont metoprolol B.asthma; On Montelukast and Advair Diskus Depression: on Venlafaxine DVT prophylaxis: Seq. TEDs Code status: Full code per patient Total Time Spent: Greater than 30 minutes This includes examination of the patient, discharge planning, medication reconciliation, and communication with other providers. Discharge Instructions Please refer to the electronic Patient Visit Report (Discharge Instructions) for additional information. Follow-Up Neurology in one to two weeks
[2016-09-11] MEDS ORDERED: PLV75 PO (13:01)
--- NOTE | 2016-09-23 06:30 | EDITING REQUIRED CODING QUERY ---
CODING CLARIFICATION Please clarify below regarding the prescence of a TIA during this admission: ( x ) TIA was present during this admission ( ) TIA was ruled out during this admission. ( ) Other condition was present, please clarify: Thank you for your assistance, [facility]
[2016-12-03] MEDS ORDERED: METO25TA56 PO (14:12)
[2016-12-03] MEDS ORDERED: NRN100 PO (14:12)
[2016-12-03] MEDS ORDERED: FLV1 PO (14:12)
[2016-12-03] MEDS ORDERED: ULT50X PO (14:12)
[2016-12-03] MEDS ORDERED: CYAN1SUB13 PO (14:12)
[2016-12-03] MEDS ORDERED: ACET-24 PO (14:12)
== END 2016-09-07 17:45 | disposition home or self-care (01) ==
LOC: ENRESERVDT → ENRESERVTM → C.EDC 14:17 → EDBD 14:17 → C.MED 18:34
PROVIDERS: ADMIT Internal Medicine; ATTEND Internal Medicine
DX: G45.9 Transient cerebral ischemic attack, unspecified (principal); G20 Parkinson's disease; E78.5 Hyperlipidemia, unspecified; I10 Essential (primary) hypertension; J45.909 Unspecified asthma, uncomplicated; H35.30 Unspecified macular degeneration; K21.9 Gastro-esophageal reflux disease without esophagitis; F32.9 Major depressive disorder, single episode, unspecified; G25.81 Restless legs syndrome; Z79.82 Long term (current) use of aspirin; Z87.01 Personal history of pneumonia (recurrent); Z82.49 Family history of ischemic heart disease and other diseases of the circulatory system; Z84.1 Family history of disorders of kidney and ureter

== ENCOUNTER 2016-09-08 13:53 | Inpatient (IN) | payer OTHER ==
[~2016-09-08] VITALS: Ht 154.9 cm; Wt 54.5 kg
[~2016-09-08 13:53] MED LIST changes: +ACET-1256 PO; +ATR10 PO; -ATRINS INH; -CLC100 PO; +EFFSR75 PO; -GFNSR600 PO; -HYDR-3124 PO; -LDXCR60 EXT; -LOVA40TA3 PO; +ROPI0.5T15 PO; -RQP25 PO; +SENN-65 PO; +TRMCR130WC TOP; -TYL325X PO; -VENL37.593 PO; -VTMD1000 PO; -XPNINS1255 INH; -[UNRECOGNIZED DRUG - OTHER] EXT
[2016-09-08] MEDS ORDERED: SODIUM CHLORIDE 0.9% 1000ML 1,000 ML IV STA (14:17)
--- NOTE | 2016-09-08 14:31 | DIAGNOSTIC IMAGING REPORT ---
SINGLE VIEW CHEST CLINICAL HISTORY: Weakness. Change in mental status. FINDINGS: An AP, portable, upright chest radiograph is compared to study dated 09/05/2016. Correlation is made with chest CT dated 07/26/2016 The examination is degraded by portable technique and patient rotation. The heart is top normal for projection. There is atherosclerotic calcification of the thoracic aorta. The pulmonary vascular structures noncongested. Chronic interstitial thickening is similar to previous. Airspace opacities at the left lung base are unchanged and likely represent atelectasis. There is no airspace consolidation typical for pneumonia or large pleural effusion. No pneumothorax is seen. The skeletal structures are osteopenic. Advanced arthritic change is present in the right shoulder and the thoracic spine. IMPRESSION: No acute cardiopulmonary abnormality and no significant change from 09/05/2016. Electronically signed by: Abebe Vyas M.D. 09/08/2016 2:30 PM Dictated Date/Time: 09/08/2016 2:28 PM
--- NOTE | 2016-09-08 14:36 | EMERGENCY ROOM VISIT NOTE ---
History Report prepared by Diana: uFnmi Dewitt Under the Supervision of: Dr. Juan Jose Kiser D.O. First contact with patient: 14:05 Chief Complaint: ILLNESS History of Present Illness The patient is a 81 year old female who presents to the Emergency Room via ambulance from the [facility] to be evaluated for an episode of altered mental status today. The patient notes that she had a headache earlier today around her left ear, which has resolved. She was told by staff that she was staring off into space, having difficulty communicating, and subsequently collapsed. At present, she is feeling better. This is the third time this has happened in the past couple of weeks. She was hospitalized for a similar episode 3 days ago for a suspected TIA. She was evaluated by Dr. Ford of Neurology while she was in the hospital. The patient denies hitting her head. She admits to feeling occasionally short of breath, which she relates to chronic asthma. She does not have a history of a-fib. Denies chest pain, nausea, vomiting, or other complaints. Source of History: patient Onset: today Position: other (global) Quality: other (AMS) Timing: other (episode) Associated Symptoms: + SOB (occasional), + headache (resolved), No chest pain, No nausea, No vomiting Review of Systems See HPI for pertinent positives & negatives. A total of 10 systems reviewed and were otherwise negative. Past Medical & Surgical Medical Problems: (1) Asthma, Unspecified (2) Depressive Disorder Nec (3) Diab Leticia Wo Compl, Type Ii Or Unspec Type, Not Uncntrld (4) Esophageal Reflux (5) Hyperlipidemia Nec/Nos (6) Hypertension Nos (7) Parkinson disease (8) Pneumonia (9) Slurring of speech Family History Gallbladder disease Heart disease Hypertension Kidney disease Kidney stones Social History Smoking Status: Unknown if Ever Smoked Alcohol Use: none Drug Use: none Marital Status: Housing Status: lives with family Occupation Status: retired Current/Historical Medications Scheduled Carbidopa-Levodopa (Sinemet Cr 25MG/100MG), 1.5 TAB PO QID Ferrous Sulfate (Ferrous Sulfate), 325 MG PO BIDM Fluticasone Prop/Salmeterol (Advair Diskus 500-50 Mcg/Dose), 1 PUFF INH BID Lovastatin (Mevacor), 40 MG PO DAILY Melatonin (Melatonin), 3 MG PO HS Metoprolol Tartrate (Lopressor), 25 MG PO BID Montelukast Sodium (Singulair), 10 MG PO HS Pantoprazole (Protonix), 40 MG PO BID Ropinirole (Requip), 0.5 MG PO DAILY@1200 Ropinirole HCl (Ropinirole HCl), 1 MG PO HS Senna/Docusate Sod (Senokot S), 1 TAB PO DAILY@1200 Venlafaxine Hcl (Effexor Extended Rel), 75 MG PO DAILY@1200 Scheduled PRN Acetaminophen (Tylenol), 500 MG PO Q4 PRN for Pain Albuterol Hfa (Ventolin Hfa), 2 PUFFS INH Q6H PRN for BREATHING/ASTHMA Hydroxyzine HCl (Hydroxyzine HCl), 10 MG PO HS PRN for ITCHING/ANXIETY Triamcinolone Acet (Aristocort 0.1%), 1 APPLN TOP BID PRN for PRN Allergies Coded Allergies: Diphenhydramine (Verified Allergy, Severe, SWELLING IN THROAT, 09/05/16) Iodine (Verified Allergy, Severe, THROAT SWELLING, 09/05/16) Shellfish (Verified Allergy, Severe, ANAPHYLAXIS AND FULL BODY HIVES, 09/05) Ciprofloxacin (Verified Allergy, Intermediate, HIVES FULL BODY, 09/05/16) Quinine (Verified Allergy, Mild, HIVES, 09/05/16) Latex1 -Allergic Contact Dermititis (Verified Allergy, Unknown, DERMATITIS , 09/05/16) Triprolidine (Verified Allergy, Unknown, HIVES, ASTHMA EXACERBATION, ) Physical Exam Vital Signs Date Time Temp Pulse Resp B/P Pulse Ox O2 Delivery O2 Flow Rate FiO2 09/08/16 15:40 86 20 155/83 100 Nasal Cannula 2.0 09/08/16 14:52 79 16 155/60 82 144/95 92 125/108 09/08/16 14:52 98 Room Air 09/08/16 14:06 37.1 83 16 127/90 98 Room Air 09/08/16 14:04 81 Physical Exam GENERAL: Patient is awake, alert, and in no acute distress. Patient is resting comfortably and showing no signs of anxiety EYES: The conjunctivae are clear. The pupils are round and reactive. EARS, NOSE, MOUTH AND THROAT: The nose is without any evidence of any deformity. Mucous membranes are moist tongue is midline NECK: The neck is nontender and supple. RESPIRATORY: Normal respiratory effort is noted there is no evidence of wheezing rhonchi or rales CARDIOVASCULAR: Regular rate and rhythm noted there no murmurs rubs or gallops normal S1 normal S2 GASTROINTESTINAL: The abdomen is soft. Bowel sounds are present in all quadrants. Abdomen is nontender MUSCULOSKELETAL/EXTREMITIES: There is no evidence of gross deformity full range of motion is noted in the hips and shoulders SKIN: There is no obvious evidence of any rash. There are no petechiae, pallor or cyanosis noted. NEUROLOGIC: Patient is awake alert and oriented x3 strength is symmetric. Medical Decision & Procedures ER Provider Diagnostic Interpretation: Radiology results as stated below per my review and radiologist interpretation: HEAD CT NONCONTRAST CT DOSE: 537.48 mGy.cm HISTORY: Altered mental status EVALUATE ALTERED MENTAL STATUS/WEAKNESS TECHNIQUE: Multiaxial CT images of the head were performed without the use of intravenous contrast. Comparison: 09/05/2016 Findings: The paranasal sinuses and mastoid air cells are clear. The calvarium and skull base are intact. The ventricles and sulci are within normal limits. There is no mass, hematoma, midline shift, or acute infarct. Atrophy. Considerable chronic small vessel change. 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 No evidence for hemorrhage. Pre-existing chronic small vessel and age-related change. Electronically signed by: Terry Chavis M.D. 09/08/2016 3:28 PM Dictated Date/Time: 09/08/2016 3:26 PM SINGLE VIEW CHEST CLINICAL HISTORY: Weakness. Change in mental status. FINDINGS: An AP, portable, upright chest radiograph is compared to study dated 09/05/2016. Correlation is made with chest CT dated 07/26/2016 The examination is degraded by portable technique and patient rotation. The heart is top normal for projection. There is atherosclerotic calcification of the thoracic aorta. The pulmonary vascular structures noncongested. Chronic interstitial thickening is similar to previous. Airspace opacities at the left lung base are unchanged and likely represent atelectasis. There is no airspace consolidation typical for pneumonia or large pleural effusion. No pneumothorax is seen. The skeletal structures are osteopenic. Advanced arthritic change is present in the right shoulder and the thoracic spine. IMPRESSION: No acute cardiopulmonary abnormality and no significant change from 09/05/2016. Electronically signed by: Abebe Vyas M.D. 09/08/2016 2:30 PM Dictated Date/Time: 09/08/2016 2:28 PM Laboratory Results 09/08/16 14:30 Red Blood Count 3.98, Mean Corpuscular Volume 93.0, Mean Corpuscular Hemoglobin 31.9, Mean Corpuscular Hemoglobin Concent 34.3, Mean Platelet Volume 8.9, Neutrophils (%) (Auto) 53.6, Lymphocytes (%) (Auto) 25.4, Monocytes (%) (Auto) 12.9, Eosinophils (%) (Auto) 7.1, Basophils (%) (Auto) 0.6, Neutrophils # (Auto ) 3.59, Lymphocytes # (Auto) 1.71, Monocytes # (Auto) 0.87, Eosinophils # (Auto ) 0.48, Basophils # (Auto) 0.04 09/08/16 14:30 Test 09/08/16 14:27 09/08/16 14:30 09/08/16 16:00 Bedside Glucose 97 mg/dl (70-90) White Blood Count 6.72 K/uL (4.8-10.8) Red Blood Count 3.98 M/uL (4.2-5.4) Hemoglobin 12.7 g/dL (12.0-16.0) Hematocrit 37.0 % (37-47) Mean Corpuscular Volume 93.0 fL (80-100) Mean Corpuscular Hemoglobin 31.9 pg (25-34) Mean Corpuscular Hemoglobin Concent 34.3 g/dl (32-36) Platelet Count 285 K/uL (130-400) Mean Platelet Volume 8.9 fL (7.4-10.4) Neutrophils (%) (Auto) 53.6 % Lymphocytes (%) (Auto) 25.4 % Monocytes (%) (Auto) 12.9 % Eosinophils (%) (Auto) 7.1 % Basophils (%) (Auto) 0.6 % Neutrophils # (Auto) 3.59 K/uL (1.4-6.5) Lymphocytes # (Auto) 1.71 K/uL (1.2-3.4) Monocytes # (Auto) 0.87 K/uL (0.11-0.59) Eosinophils # (Auto) 0.48 K/uL (0-0.5) Basophils # (Auto) 0.04 K/uL (0-0.2) RDW Standard Deviation 47.1 fL (36.4-46.3) RDW Coefficient of Variation 13.9 % (11.5-14.5) Immature Granulocyte % (Auto) 0.4 % Immature Granulocyte # (Auto) 0.03 K/uL (0.00-0.02) Prothrombin Time 10.9 SECONDS (9.0-12.0) Prothromb Time International Ratio 1.0 (0.9-1.1) Activated Partial Thromboplast Time 24.9 SECONDS (21.0-31.0) Partial Thromboplastin Ratio 1.0 Anion Gap 6.0 mmol/L (3-11) Est Creatinine Clear Calc Drug Dose 33.3 ml/min Estimated GFR () 61.2 Estimated GFR (Non- 52.8 BUN/Creatinine Ratio 24.3 (10-20) Calcium Level 8.7 mg/dl (8.5-10.1) Magnesium Level 2.2 mg/dl (1.8-2.4) Total Bilirubin 0.5 mg/dl (0.2-1) Direct Bilirubin 0.1 mg/dl (0-0.2) Aspartate Amino Transf (AST/SGOT) 9 U/L (15-37) Alanine Aminotransferase (ALT/SGPT) 9 U/L (12-78) Alkaline Phosphatase 102 U/L (45-117) Total Creatine Kinase 30 U/L (26-192) Creatine Kinase MB 0.6 ng/ml (0.5-3.6) Creatine Kinase MB Ratio 2.0 (0-3.0) Troponin I 0.016 ng/ml (0-0.045) Total Protein 6.9 gm/dl (6.4-8.2) Albumin 3.5 gm/dl (3.4-5.0) Thyroid Stimulating Hormone (TSH) 2.640 uIu/ml (0.300-4.500) Prolactin 6.79 ng/mL Urine Color YELLOW Urine Appearance CLEAR (CLEAR) Urine pH 6.0 (4.5-7.5) Urine Specific [place] 1.013 (1.000-1.030) Urine Protein NEG (NEG) Urine Glucose (UA) NEG (NEG) Urine Ketones NEG (NEG) Urine Occult Blood NEG (NEG) Urine Nitrite NEG (NEG) Urine Bilirubin NEG (NEG) Urine Urobilinogen NEG (NEG) Urine Leukocyte Esterase SMALL (NEG) Urine WBC (Auto) 1-5 /hpf (0-5) Urine RBC (Auto) 0-4 /hpf (0-4) Urine Hyaline Casts (Auto) 1-5 /lpf (0-5) Urine Epithelial Cells (Auto) 10-20 /lpf (0-5) Urine Bacteria (Auto) 2+ (NEG) Laboratory results per my review. Medications Administered Medications (Trade) Dose Ordered Sig/Joceline Route Start Time Stop Time Status Last Admin Dose Admin Sodium Chloride (Nss 1000ml) 1,000 ml @ 999 mls/hr Q1H1M STAT IV 09/08/16 14:17 09/08/16 15:17 DC 09/08/16 14:55 999 MLS/HR ECG Indication: altered mental status Rate (beats per minute): 79 Rhythm: normal sinus Findings: PVC (frequent), other (inferior and lateral ST and T abnormalities, LVH by voltage criteria) Comparison ECG Date: 09/05/16 Change: no significant change ED Course 1413: The patient was evaluated in room A4B. A complete history and physical examination were performed. 1417: Ordered NSS 1000 ml @ 999 mls/hr IV. 1605: Upon reevaluation, the patient is resting comfortably. I discussed results and treatment plan with the patient. She verbalizes agreement and understanding. 1659: I discussed the case with Dr. Block - [facility] [place]. The patient will be evaluated for further management. Medical Decision Prior records/ancillary studies reviewed and summarized above. Nursing notes reviewed. Differential diagnosis: Etiologies such as metabolic, infection, hypo/hyperglycemia, electrolyte abnormalities, cardiac sources, intracerebral event, toxicologic, neurologic, as well as others were entertained. The patient is an 81-year-old female who presented to the emergency department for an evaluation of possible TIA possible stroke. The patient was seen and admitted to our facility recently with similar complaints. She has eased intermittent episodes where she becomes aphasic and confused. The patient had a similar episode today and was sent to the emergency department for an evaluation. I reviewed the patient's previous electronic medical records. It appears though no definite abnormality was noted on neuro imaging at that time. Today however she appears to have signs of a CVA. I would wonder if the patient' s symptoms all along could be consistent with embolic phenomena. She is not currently taking anticoagulation. I discussed the patient's laboratory and radiographic studies with her. I also discussed her case with the on-call [facility] hospitalist group. They've agreed to evaluate the patient in the emergency department for further management and disposition. Consults Time Called: 1608 Consulting Physician: Dr. Umair Manuel [facility] [place] Hospitalist Returned Call: [phone] I discussed the case with her. The patient will be evaluated for further management. Impression Primary Impression: CVA (cerebral vascular accident) Scribe Attestation The scribe's documentation has been prepared under my direction and personally reviewed by me in its entirety. I confirm that the note above accurately reflects all work, treatment, procedures, and medical decision making performed by me. Departure Information Dispostion Being Evaluated By Hospitalist Referrals Artemio Cleary M.D. (PCP) Patient Instructions My [facility] Stroke History Time Last Known Well 1405 Stroke t-PA Criteria Reviewed Does NOT meet criteria for t-PA Reason t-PA Not Given Contraindicated Strict Exclusion Criteria Normal neurologic examination Problem Qualifiers Primary Impression: CVA (cerebral vascular accident) CVA mechanism: unspecified Qualified Codes: I63.9 - Cerebral infarction, unspecified
[2016-09-08 14:48] LABS: BASO % 0.6 %; BASO ABS # 0.04 K/uL (0-0.2); COMPLETE YES; EOS % 7.1 %; IG% 0.4 %; LYMPH % 25.4 %; LYMPH ABS # 1.71 K/uL (1.2-3.4); MEAN CORPUSCULAR HEMOGLOBIN 31.9 pg (25-34); MEAN CORPUSCULAR HGB CONC 34.3 g/dl (32-36); MEAN PLATELET VOLUME 8.9 fL (7.4-10.4); MONO % 12.9 %; NEUT % 53.6 %; PLATELET COUNT 285 K/uL (130-400); RED BLOOD COUNT 3.98 M/uL (4.2-5.4); WHITE BLOOD COUNT 6.72 K/uL (4.8-10.8)
[2016-09-08 14:58] LABS: PROTHROMBIN TIME (PATIENT) 10.9 SECONDS (9.0-12.0)
[2016-09-08 15:04] LABS: BUN/CREATININE RATIO 24.3 (10-20); CALCIUM 8.7 mg/dl (8.5-10.1); MAGNESIUM 2.2 mg/dl (1.8-2.4); POTASSIUM 4.4 mmol/L (3.5-5.1)
[2016-09-08 15:15] LABS: THYROID STIMULATING HORMONE 2.64 uIu/ml (0.300-4.500)
--- NOTE | 2016-09-08 15:30 | DIAGNOSTIC IMAGING REPORT ---
HEAD CT NONCONTRAST CT DOSE: 537.48 mGy.cm HISTORY: Altered mental status EVALUATE ALTERED MENTAL STATUS/WEAKNESS TECHNIQUE: Multiaxial CT images of the head were performed without the use of intravenous contrast. Comparison: 09/05/2016 Findings: The paranasal sinuses and mastoid air cells are clear. The calvarium and skull base are intact. The ventricles and sulci are within normal limits. There is no mass, hematoma, midline shift, or acute infarct. Atrophy. Considerable chronic small vessel change. 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 No evidence for hemorrhage. Pre-existing chronic small vessel and age-related change. Electronically signed by: Terry Chavis M.D. 09/08/2016 3:28 PM Dictated Date/Time: 09/08/2016 3:26 PM
[2016-09-08 16:33] LABS: URINE APPEARANCE CLEAR (CLEAR); URINE BILIRUBIN NEG (NEG); URINE COLOR YELLOW; URINE NITRITE NEG (NEG); URINE SPECIFIC GRAVITY 1.013 (1.000-1.030); UROBILINOGEN NEG (NEG)
[2016-09-08 16:35] LABS: MANUAL MICROSCOPIC REQUIRED? NO; REVIEW REQ? NO
[2016-09-08] MEDS ORDERED: TRIAMCINOLONE ACET 0.1% CR 15 GM TUBE EXT PRN (18:30)
[2016-09-08] MEDS ORDERED: hydrOXYzine HCL 10 MG TAB PO PRN (18:30)
[2016-09-08] MEDS ORDERED: ACETAMINOPHEN 325 MG TAB PO STA (18:30)
[2016-09-08] MEDS ORDERED: ALBUTEROL HFA 8 GM INHALER INH PRN (18:30)
[2016-09-08] MEDS ORDERED: PHARMACIST DISCHARGE MED REC CONSULT PRN (18:30)
[2016-09-08] MEDS ORDERED: CLOPIDOGREL BISULFATE 75 MG TAB PO STA (19:07)
[2016-09-08 20:08] LABS: LYME DISEASE AB IGM NEG (NEG)
[2016-09-08 20:09] LABS: LYME DISEASE AB IGG NEG (NEG)
[2016-09-08 20:15] VITALS: BP 157/85; PULSE 94; TEMP 36.9; O2SAT 97; Ht 154.9 cm; Wt 54.5 kg
[2016-09-08] MEDS ORDERED: NON-FORMULARY MEDICATION (Melatonin 3 MG) PO SCH (21:00)
[2016-09-08] MEDS ORDERED: GADAVIST IV PRN (22:30)
[2016-09-08] MEDS: LOVASTATIN 20 MG TAB PO SCH (22:51)
[2016-09-08] MEDS: ROPINIROLE HCL 1 MG TAB PO SCH (22:51)
[2016-09-08] MEDS: PANTOprazole SOD 40 MG TAB PO SCH (22:52)
[2016-09-08] MEDS: MONTELUKAST SOD 10 MG TAB PO SCH (22:52)
[2016-09-08] MEDS: CARBIDOPA/LEVODOPA 25/100MG EXT REL TAB PO SCH (22:53)
[2016-09-08] MEDS: METOPROLOL TARTRATE 25 MG TAB PO SCH (22:53)
--- NOTE | 2016-09-08 23:23 | DIAGNOSTIC IMAGING REPORT ---
MRI OF THE BRAIN WITHOUT AND WITH IV CONTRAST CLINICAL HISTORY: Stroke. Confusion. Headache. COMPARISON STUDY: MRI of the brain September 06, [address] September 08, 2016. TECHNIQUE: Utilizing a 1.5 Monica magnet and dedicated coil, multiplanar, multiecho imaging of the brain was performed pre and postcontrast administration. IV administration of 5.5 mL of Gadavist contrast was uneventful. FINDINGS: This exam is moderately compromised by motion artifact. However, there are no areas of restricted diffusion to suggest acute infarct. No acute intracranial hemorrhage, midline shift or mass effect is present. Moderate to marked atrophy is noted. Extensive white matter signal abnormality suggests small vessel disease. No intracranial mass or pathologic enhancement is identified. The appearance of the brain is unchanged since MRI of September 06, 2016. Calvarial signal is maintained. Signal abnormality at this C1-C2 articulation is probably degenerative. IMPRESSION: 1. No acute intracranial findings. 2. Extensive small vessel disease and moderate to marked atrophy. 3. No intracranial mass. Electronically signed by: Burton Damon M.D. 09/08/2016 11:21 PM Dictated Date/Time: 09/08/2016 11:16 PM
--- NOTE | 2016-09-08 23:26 | DIAGNOSTIC IMAGING REPORT ---
MRA OF THE INTRACRANIAL CIRCULATION WITHOUT CONTRAST CLINICAL HISTORY: Stroke. COMPARISON STUDY: MRA of the intracranial circulation April 10, 2014. TECHNIQUE: Utilizing a 1.5 Monica magnet and 3-D [id number] technique, unenhanced MRA of the intracranial circulation was obtained. FINDINGS: The bilateral M1, M2, A1 and A2 segments are patent. The intracranial portion of the left vertebral artery contains diminished flow when compared to the right vertebral artery. No abrupt vessel cut off is identified. There is a right posterior communicating artery and an anterior communicating artery. No intracranial aneurysm is identified. IMPRESSION: 1. No abrupt vessel cutoff within the anterior circulation. 2. Apparent diminished flow within the intracranial portion of the left vertebral artery. This could reflect artifact or vessel stenosis/occlusion. Electronically signed by: Burton Damon M.D. 09/08/2016 11:25 PM Dictated Date/Time: 09/08/2016 10:07 PM
[2016-09-09] VITALS (11 sets, daily range): BP systolic 66–156; BP diastolic 52–98; PULSE 69–114; TEMP 36.7–36.9; O2SAT 91–99
[2016-09-09] MEDS ORDERED: DEXTROSE 50% 50 ML SYR IV PRN (01:15)
[2016-09-09] MEDS ORDERED: GLUCOSE 40% GEL 15 GM TUBE PO PRN (01:15)
[2016-09-09] MEDS ORDERED: GLUCAGON FOR INJ 1 MG VIAL SQ PRN (01:15)
[2016-09-09] MEDS ORDERED: GLUCOSE 10 TABS/TUBE PO PRN (01:15)
--- NOTE | 2016-09-09 01:43 | History and Physical ---
History & Physical Date & Time of Service: Sep 08, 2016 at 17:37 Chief Complaint: Staring, unresponsive Primary Care Physician: Artemio Cleary M.D. History of Present Illness Source: patient, family The patient is a 81 year old female with a history of Hypertension,Parkinson's disease, RLS, MCI, anxiety disorder,Chronic anemia, GERD, Dyslipidemia, DMII, Osteoporosis, microscopic hematuria, macular degeneration with Davonte Bonnet Syndrome, and Atopic Dermatitis who presents to the Emergency Room via ambulance from the [facility] to be evaluated for an episode of altered mental status today. The patient notes that she had a headache earlier today around her left ear, which she has been experiencing frequently lately. She was told by staff that she was staring off into space, having difficulty communicating. The daughter reports that this is the same presentation she has been having intermittently over the past month or so. She was just discharged from the hospital yesterday for a similar episode 3 days ago. She had a normal MRI of the brain and no stenosis of the internal carotid arteries during that admission. Her echocardiogram showed grade 1 diastolic dysfunction, low normal left ventricular function, but no source of thromboembolism. She had no events on telemetry that were significant. At present, she is feeling better except she continues to have a left-sided headache. She denies numbness or tingling, no weakness anywhere. She has significant macular degeneration and legal blindness and has not noted any new visual disturbances. She denies chest pains or heart palpitations, no shortness of breath or cough. Her initial head CT in the ER showed a subacute right periventricular infarct of the head of the right caudate nucleus Past Medical/Surgical History Medical Problems: Hypertension Parkinson's disease RLS MCI Anxiety disorder Chronic anemia GERD Dyslipidemia DMII-diet controlled Osteoporosis Microscopic hematuria Macular degeneration with Davonte Bonnet Syndrome Atopic Dermatitis Right shoulder arthritis with synovial cyst History of uterine cancer Past surgical history: Hysterectomy with bilateral salpingo-oophorectomy Carpal tunnel release Tonsillectomy Family History Gallbladder disease Heart disease Hypertension Kidney disease Kidney stones Social History Smoking Status: Never Smoker Alcohol Use: none Drug Use: none Marital Status: Housing status: [facility] Occupational Status: retired Multi-Drug Resistant Organisms History of MDRO: No Allergies Coded Allergies: Diphenhydramine (Verified Allergy, Severe, SWELLING IN THROAT, 09/05/16) Iodine (Verified Allergy, Severe, THROAT SWELLING, 09/05/16) Shellfish (Verified Allergy, Severe, ANAPHYLAXIS AND FULL BODY HIVES, 09/05) Ciprofloxacin (Verified Allergy, Intermediate, HIVES FULL BODY, 09/05/16) Quinine (Verified Allergy, Mild, HIVES, 09/05/16) Latex1 -Allergic Contact Dermititis (Verified Allergy, Unknown, DERMATITIS , 09/05/16) Triprolidine (Verified Allergy, Unknown, HIVES, ASTHMA EXACERBATION, ) Home Medications Scheduled Carbidopa-Levodopa (Sinemet Cr 25MG/100MG), 1.5 TAB PO QID Ferrous Sulfate (Ferrous Sulfate), 325 MG PO BIDM Fluticasone Prop/Salmeterol (Advair Diskus 500-50 Mcg/Dose), 1 PUFF INH BID Lovastatin (Mevacor), 40 MG PO DAILY Melatonin (Melatonin), 3 MG PO HS Metoprolol Tartrate (Lopressor), 25 MG PO BID Montelukast Sodium (Singulair), 10 MG PO HS Pantoprazole (Protonix), 40 MG PO BID Ropinirole (Requip), 0.5 MG PO DAILY@1200 Ropinirole HCl (Ropinirole HCl), 1 MG PO HS Senna/Docusate Sod (Senokot S), 1 TAB PO DAILY@1200 Venlafaxine Hcl (Effexor Extended Rel), 75 MG PO DAILY@1200 Scheduled PRN Acetaminophen (Tylenol), 500 MG PO Q4 PRN for Pain Albuterol Hfa (Ventolin Hfa), 2 PUFFS INH Q6H PRN for BREATHING/ASTHMA Hydroxyzine HCl (Hydroxyzine HCl), 10 MG PO HS PRN for ITCHING/ANXIETY Triamcinolone Acet (Aristocort 0.1%), 1 APPLN TOP BID PRN for PRN Review of Systems Constitutional: No chills, No fever, No sweats Eyes: No worsening of vision ENT: No hearing loss, No trouble swallowing Respiratory: No cough, No shortness of breath, No wheezing Cardiovascular: No chest pain, No palpitations Abdomen: No GI bleeding, No diarrhea, No nausea, No pain, No vomiting Musculoskeletal: No problem reported Genitourinary - Female: No problem reported Neurologic: + memory loss, + problem reported (staring spells and headaches), No numbness/tingling, No paralysis, No vertigo, No weakness Psychiatric: + anxiety Endocrine: No problem reported Integumentary: + itch Allergic / Immunologic: No problem reported Physical Exam Vital Signs Date Time Temp Pulse Resp B/P Pulse Ox O2 Delivery O2 Flow Rate FiO2 09/08/16 17:35 97 18 159/96 100 Room Air 09/08/16 15:40 86 20 155/83 100 Nasal Cannula 2.0 09/08/16 14:52 79 16 155/60 82 144/95 92 125/108 09/08/16 14:52 98 Room Air 09/08/16 14:06 37.1 83 16 127/90 98 Room Air 09/08/16 14:04 81 General Appearance: WD/WN, no apparent distress Head: normocephalic, atraumatic Eyes: normal inspection, PERRL, EOMI, sclerae normal ENT: hearing grossly normal, pharynx normal Neck: supple, no adenopathy, thyroid normal, no JVD, no carotid bruits, trachea midline Respiratory/Chest: lungs clear, normal breath sounds, no respiratory distress, no accessory muscle use Cardiovascular: regular rate, rhythm, no edema, no gallop, no murmur, normal peripheral pulses Abdomen/GI: normal bowel sounds, non tender, soft, no organomegaly, no pulsatile mass Back: normal inspection Extremities/Musculoskelatal: normal inspection, no calf tenderness, normal capillary refill, no pedal edema, normal range of motion 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, no motor/sensory deficits, alert, normal mood/affect, oriented x 3 Skin: normal color, warm/dry, + pertinent finding (shiny and dry) Diagnostics Laboratory Results Results Past 24 Hours Test 09/08/16 14:27 09/08/16 14:30 09/08/16 16:00 Range/Units Bedside Glucose 97 70-90 mg/dl White Blood Count 6.72 4.8-10.8 K/uL Red Blood Count 3.98 4.2-5.4 M/uL Hemoglobin 12.7 12.0-16.0 g/dL Hematocrit 37.0 37-47 % Mean Corpuscular Volume 93.0 80-100 fL Mean Corpuscular Hemoglobin 31.9 25-34 pg Mean Corpuscular Hemoglobin Concent 34.3 32-36 g/dl Platelet Count 285 130-400 K/uL Mean Platelet Volume 8.9 7.4-10.4 fL Neutrophils (%) (Auto) 53.6 % Lymphocytes (%) (Auto) 25.4 % Monocytes (%) (Auto) 12.9 % Eosinophils (%) (Auto) 7.1 % Basophils (%) (Auto) 0.6 % Neutrophils # (Auto) 3.59 1.4-6.5 K/uL Lymphocytes # (Auto) 1.71 1.2-3.4 K/uL Monocytes # (Auto) 0.87 0.11-0.59 K/uL Eosinophils # (Auto) 0.48 0-0.5 K/uL Basophils # (Auto) 0.04 0-0.2 K/uL RDW Standard Deviation 47.1 36.4-46.3 fL RDW Coefficient of Variation 13.9 11.5-14.5 % Immature Granulocyte % (Auto) 0.4 % Immature Granulocyte # (Auto) 0.03 0.00-0.02 K/uL Prothrombin Time 10.9 9.0-12.0 SECONDS Prothromb Time International Ratio 1.0 0.9-1.1 Activated Partial Thromboplast Time 24.9 21.0-31.0 SECONDS Partial Thromboplastin Ratio 1.0 Sodium Level 138 136-145 mmol/L Potassium Level 4.4 3.5-5.1 mmol/L Chloride Level 105 98-107 mmol/L Carbon Dioxide Level 27 21-32 mmol/L Anion Gap 6.0 3-11 mmol/L Blood Urea Nitrogen 24 7-18 mg/dl Creatinine 1.00 0.60-1.20 mg/dl Est Creatinine Clear Calc Drug Dose 33.3 ml/min Estimated GFR () 61.2 Estimated GFR (Non- 52.8 BUN/Creatinine Ratio 24.3 10-20 Random Glucose 102 70-99 mg/dl Calcium Level 8.7 8.5-10.1 mg/dl Magnesium Level 2.2 1.8-2.4 mg/dl Total Bilirubin 0.5 0.2-1 mg/dl Direct Bilirubin 0.1 0-0.2 mg/dl Aspartate Amino Transf (AST/SGOT) 9 15-37 U/L Alanine Aminotransferase (ALT/SGPT) 9 12-78 U/L Alkaline Phosphatase 102 45-117 U/L Total Creatine Kinase 30 26-192 U/L Creatine Kinase MB 0.6 0.5-3.6 ng/ml Creatine Kinase MB Ratio 2.0 0-3.0 Troponin I 0.016 0-0.045 ng/ml Total Protein 6.9 6.4-8.2 gm/dl Albumin 3.5 3.4-5.0 gm/dl Thyroid Stimulating Hormone (TSH) 2.640 0.300-4.500 uIu/ml Prolactin 6.79 ng/mL Urine Color YELLOW Urine Appearance CLEAR CLEAR Urine pH 6.0 4.5-7.5 Urine Specific Duarte 1.013 1.000-1.030 Urine Protein NEG NEG Urine Glucose (UA) NEG NEG Urine Ketones NEG NEG Urine Occult Blood NEG NEG Urine Nitrite NEG NEG Urine Bilirubin NEG NEG Urine Urobilinogen NEG NEG Urine Leukocyte Esterase SMALL NEG Urine WBC (Auto) 1-5 0-5 /hpf Urine RBC (Auto) 0-4 0-4 /hpf Urine Hyaline Casts (Auto) 1-5 0-5 /lpf Urine Epithelial Cells (Auto) 10-20 0-5 /lpf Urine Bacteria (Auto) 2+ NEG Diagnostic Radiology HEAD CT NONCONTRAST Comparison: 09/05/2016 Findings: The paranasal sinuses and mastoid air cells are clear. The calvarium and skull base are intact. The ventricles and sulci are within normal limits. There is no mass, hematoma, midline shift, or acute infarct. Atrophy. Considerable chronic small vessel change. 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 No evidence for hemorrhage. Pre-existing chronic small vessel and age-related change. MRA OF THE INTRACRANIAL CIRCULATION WITHOUT CONTRAST FINDINGS: The bilateral M1, M2, A1 and A2 segments are patent. The intracranial portion of the left vertebral artery contains diminished flow when compared to the right vertebral artery. No abrupt vessel cut off is identified. There is a right posterior communicating artery and an anterior communicating artery. No intracranial aneurysm is identified. IMPRESSION: 1. No abrupt vessel cutoff within the anterior circulation. 2. Apparent diminished flow within the intracranial portion of the left vertebral artery. This could reflect artifact or vessel stenosis/occlusion. MRI OF THE BRAIN WITHOUT AND WITH IV CONTRAST FINDINGS: This exam is moderately compromised by motion artifact. However, there are no areas of restricted diffusion to suggest acute infarct. No acute intracranial hemorrhage, midline shift or mass effect is present. Moderate to marked atrophy is noted. Extensive white matter signal abnormality suggests small vessel disease. No intracranial mass or pathologic enhancement is identified. The appearance of the brain is unchanged since MRI of September 06, 2016. Calvarial signal is maintained. Signal abnormality at this C1-C2 articulation is probably degenerative. IMPRESSION: 1. No acute intracranial findings. 2. Extensive small vessel disease and moderate to marked atrophy. 3. No intracranial mass. SINGLE VIEW CHEST CLINICAL HISTORY: Weakness. Change in mental status. FINDINGS: An AP, portable, upright chest radiograph is compared to study dated 09/05/2016. Correlation is made with chest CT dated 07/26/2016 The examination is degraded by portable technique and patient rotation. The heart is top normal for projection. There is atherosclerotic calcification of the thoracic aorta. The pulmonary vascular structures noncongested. Chronic interstitial thickening is similar to previous. Airspace opacities at the left lung base are unchanged and likely represent atelectasis. There is no airspace consolidation typical for pneumonia or large pleural effusion. No pneumothorax is seen. The skeletal structures are osteopenic. Advanced arthritic change is present in the right shoulder and the thoracic spine. IMPRESSION: No acute cardiopulmonary abnormality and no significant change from 09/05/2016. EKG Normal sinus rhythm with frequent PVCs, diffuse T-wave inversions in anterolateral leads unchanged from previous No change from prior EKG Impression Assessment and Plan The patient is a 81 year old female with a history of Hypertension,Parkinson's disease, RLS, MCI, anxiety disorder, asthma, Chronic anemia, GERD, Dyslipidemia , DMII, Osteoporosis, microscopic hematuria, macular degeneration with Davonte Bonnet Syndrome, and Atopic Dermatitis who presents to the Emergency Room via ambulance from the [facility] to be evaluated for an episode of altered mental status and a staring spell where she was unresponsive, along with headache. This is the same presentation she has been having intermittently over the past month or so. She was just discharged from the hospital the day prior to this admission for a similar episode. During that admission, she had a normal MRI of the brain and no stenosis of the internal carotid arteries during that admission. Her echocardiogram showed grade 1 diastolic dysfunction, low normal left ventricular function, but no source of thromboembolism. 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 Staring spells/unresponsive episodes/left-sided headache/subacute CVA of the right caudate nucleus-MRI of the brain degraded by motion artifact but no acute CVA seen today. MRA of the head shows possible stenosis or occlusion of the left vertebral artery. These episodes could be seizure-like activity as well although her prolactin was only 6 at the time of arrival to the ER. She was not orthostatic in the ER. The case was discussed with Dr. Ford of neurology on the phone at the time of admission. -Admit to telemetry for observation for cardiac arrhythmia -Trend cardiac biomarkers to rule out ACS -No need to repeat echocardiogram at this time -Start Plavix 75 mg once daily -Check sedimentation rate and Lyme disease. TSH checked last time and was normal -Routine EEG in the morning to rule out seizure activity -Continue statin -Maintaining mean arterial pressure around 100 -Neurology consult appreciated for further recommendations -We'll give Tylenol as needed for headache Hypertension/ abnormal EKG unchanged from multiple previous ECGs-blood pressure mildly hypertensive, allow permissive hypertension in the setting of acute CVA -stress ECHO in 2009 is normal per outpt record review -Continue metoprolol 25 mg by mouth twice a day Parkinson's, RLS, MCI: -Continue Sinemet -continue Requip for RLS -continue FeSO4 tabs from home for RLS vs anemia -follows with Dr. Loyd of Neuro Chronic anemia- improved with iron supplementation as an outpatient. Follows with hematology as per outpt record. PCP has had discussion about repeating endoscopy. Last GI endoscopy done January 2014. She probably is having intermittent GI bleeding from AVMs. However, she is maintaining blood count with iron supplementation. Because she has multiple comorbidities patient and her daughter both agreed to hold off on further endoscopy as outpt unless hemoglobin cannot be maintained with iron supplementation. Hgb in hospital is stable and normal at 12 -continue FeSO4 supplementation -follow CBC GERD- EGD January 2014 showed hiatal hernia, and evidence of chronic acid suppression. -continue PPI Dyslipidemia -She is on lovastatin for dyslipidemia, with diabetes and vascular disease. DMII-mild, diet controlled, hemoglobin A1c in 07/2016 was 6.0% -Sliding scale insulin and Accu-Cheks every before meals at bedtime Osteoporosis -stable -She is on calcium, vitamin D. She took one dose of Actonel and had transient GI upset. Anxiety-stable -Continue venlafaxine Asthma-stable -Continue Advair History of microscopic hematuria-Follows with Urology She has a large cystic mass right shoulder and was evaluated by Dr. Cross. Aspirated several times with recurrence. Surgery not recommended. Davonte Bonnet Syndrome, Legally blind- supportive care Atopic Dermatitis: Aquaphor and triamcinolone cream to skin for severe atopic dermatitis which does predispose her for remote h/o skin infections DVT prophylaxis-SCDs Disposition-full code PT/OT/speech therapy evaluations and possible placement back at rehabilitation facility Additional Copies To Artemio Cleary M.D.
[2016-09-09 01:49] LABS: CKMB/CK RATIO 1.7 (0-3.0)
[2016-09-09] MEDS: INSULIN ASPART 100 UNITS/ML 3 ML PEN SC SCH ×4 (06:30→20:48)
[2016-09-09] MEDS: PANTOprazole SOD 40 MG TAB PO SCH ×2 (07:54→20:45)
[2016-09-09] MEDS: FERROUS SULFATE 325 MG TAB PO SCH ×2 (07:54→18:09)
[2016-09-09] MEDS: CLOPIDOGREL BISULFATE 75 MG TAB PO SCH (07:55)
[2016-09-09] MEDS: METOPROLOL TARTRATE 25 MG TAB PO SCH ×2 (07:55→20:43)
[2016-09-09] MEDS: FLUTICASONE/SALMETEROL (ADVAIR) 500/50 INH 14 PUFF INH SCH ×2 (07:56→20:42)
[2016-09-09] MEDS: CARBIDOPA/LEVODOPA 25/100MG EXT REL TAB PO SCH ×4 (07:56→20:45)
--- NOTE | 2016-09-09 08:31 | Neurology Consultation ---
Neurology Consultation Date of Consultation: Sep 09, 2016. Attending Physician: Shanika Block MD Primary Care Physician: Artemio Cleary M.D. Reason for Consultation: -Patient is an 81-year-old, who was asked to see the request of Dr. Prater, for neurologic consultation regarding possible stroke History of Present Illness Source: patient, clinic records, hospital records I saw this patient for the first time September 06 here at the hospital in consultation regarding an episode of expressive aphasia. The patient also has Parkinson's disease. The patient first saw Dr. Loyd in February 2013. She had a resting tremor for several years and had some rigidity. He diagnosed Parkinson's disease and initiated low-dose Sinemet. She's been on the Sinemet ever since and she is on 25/100, 1.5 tablets 4 times a day. She is also on Requip 0.5 mg in the morning and 1 mg in the evening for restless leg syndrome, which also addresses the Parkinson's disease. She last saw Dr. Loyd in June 2016 and was stable with this condition. An MRI of the brain in March 2014 showed chronic small vessel disease and generalized atrophy of mild to moderate nature. MR angiography of the head was unremarkable. Dr. Loyd diagnosis mild cognitive impairment/mild dementia. She was initiated on Aricept in March 2016 but this was giving her increased visual hallucinations, so this was discontinued in June 2016. 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 Because of her poor vision and recent falls as well as the Parkinson's disease, she has been at the [facility] for at least a week or 2. On September 05 she got up feeling well. Around lunchtime she stopped talking was staring straight ahead. She uses some nonsense words and had a frontal headache on the left. She was taken to the emergency room and she was admitted. A CT scan of the head showed no acute changes. Chest x-ray showed some atelectasis. Laboratory study was unremarkable including a cholesterol 150. Carotid ultrasound showed moderate plaque but no significant stenoses. An MRI of the brain showed no stroke and mild to moderate old small vessel ischemic disease. Echocardiogram was largely unremarkable as well. I recommended 81 mg aspirin tablet daily and diagnosed a presumed TIA. The patient was discharged September 07. The patient was having a left-sided headache the morning of September 08. She says that the headache starts behind her left ear and radiates up to the left frontal head region. It is a pounding pain of a dull and achy nature lasting about half an hour to time. These come and go in doing so frequently over the last few weeks. She doesn't remember much else of yesterday morning or early afternoon. Around lunchtime the patient was observed to be staring off and had decreased communication. No specific speech problems were noted and she had no weakness or numbness of the limbs. No facial droop was noted and she was brought to the hospital. On September 08, at 06/15/05 hours, temperature was 37.1, pulse 83 and regular, respiratory rate 16 and regular, blood pressure 127/90, and O2 saturation 98%. CT scan of the head was unremarkable for acute changes Sedimentation rate was 9, CBC and chem profile were unremarkable, TSH, prolactin , and Lyme antibody titers were unremarkable. MRI of the brain showed extensive small vessel ischemic disease with moderate atrophy as before. There are no new changes or acute strokes MR angiography of the head showed no significant stenoses although the flow in the left vertebral was lower. Overnight, she has had no spells, alterations in responsiveness or consciousness , episodes of weakness or numbness or other issues except for occasional left- sided headache as described above. The patient is orthostatic dropping systolic as much as 50 points and diastolic as much as 30 points while raising the pulse, going from lying to standing position. EEG is pending. Past Medical/Surgical History Medical Problems: (1) Altered mental status Status: Acute (2) Contusion of left hip and thigh Status: Acute (3) CVA (cerebral vascular accident) Status: Acute (4) Expressive aphasia Status: Acute (5) Fall Status: Acute (6) Fall Status: Acute (7) Inability to ambulate due to left knee Status: Acute (8) Left knee sprain Status: Acute (9) TIA (transient ischemic attack) Status: Acute (10) TIA (transient ischemic attack) Status: Acute Parkinson's disease Depression, stable on venlafaxine 75 mg a day History of asthma Diabetes: Uncertain type Dyslipidemia with well-controlled cholesterol Hypertension Gastroesophageal reflux disease History of pneumonia Mild vascular dementia Restless leg syndrome Macular degeneration with very poor vision and history of visual hallucinations , consistent with Davonte Bonnet syndrome Post cataract surgery bilaterally. Hysterectomy Tonsillectomy Right carpal tunnel syndrome repair in the remote past Family History Mother age 80 of congestive heart failure Father age 89 of heart issues Social History The patient never smoked cigarettes and does not use alcohol. 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55 Smoking Status: Never smoker Smokeless Tobacco Use: No Alcohol Use: none Drug Use: none Marital Status: Housing Status: lives with family Occupation Status: retired Allergies Coded Allergies: Diphenhydramine (Verified Allergy, Severe, SWELLING IN THROAT, 09/05/16) Iodine (Verified Allergy, Severe, THROAT SWELLING, 09/05/16) Shellfish (Verified Allergy, Severe, ANAPHYLAXIS AND FULL BODY HIVES, 09/05) Ciprofloxacin (Verified Allergy, Intermediate, HIVES FULL BODY, 09/05/16) Quinine (Verified Allergy, Mild, HIVES, 09/05/16) Latex1 -Allergic Contact Dermititis (Verified Allergy, Unknown, DERMATITIS , 09/05/16) Triprolidine (Verified Allergy, Unknown, HIVES, ASTHMA EXACERBATION, ) Current Inpatient Medications Current Inpatient Medications Medications (Trade) Dose Ordered Sig/Joceline Route Start Time Stop Time Status Last Admin Dose Admin Clopidogrel Bisulfate (plAVix TAB) 75 mg QAM PO 09/09/16 09:00 10/09/16 08:59 09/09/16 07:55 75 MG Miscellaneous Information (Pharmacist Discharge Med Rec Consult) 1 ea UD PRN N/A 09/08/16 18:30 10/08/16 18:29 Albuterol (Ventolin Hfa Inhaler) 2 puffs Q6H PRN INH 09/08/16 18:30 10/08/16 18:29 Carbidopa/Levodopa (Sinemet Cr 25/ 100MG Tab) 1.5 tab QID PO 09/08/16 21:00 10/08/16 20:59 09/09/16 07:56 1.5 TAB Ferrous Sulfate (Feosol Tab) 325 mg BIDM PO 09/09/16 08:00 10/09/16 07:59 09/09/16 07:54 325 MG Salmeterol Xinafoate/ Fluticasone (Advair Diskus 500/50 Inh) 1 puff BID INH 09/09/16 09:00 10/09/16 08:59 09/09/16 07:56 1 PUFF Hydroxyzine HCl (Vistaril Tab) 10 mg HS PRN PO 09/08/16 18:30 10/08/16 18:29 Metoprolol Tartrate (Lopressor Tab) 25 mg BID PO 09/08/16 21:00 10/08/16 20:59 09/09/16 07:55 25 MG Montelukast Sodium (Singulair Tab) 10 mg HS PO 09/08/16 21:00 10/08/16 20:59 09/08/16 22:52 10 MG Pantoprazole Sodium (Protonix Tab) 40 mg BID PO 09/08/16 21:00 10/08/16 20:59 09/09/16 07:54 40 MG Ropinirole HCl (Requip Tab) 0.5 mg DAILY@1200 PO 09/09/16 12:00 10/09/16 11:59 Ropinirole HCl (Requip Tab) 1 mg HS PO 09/08/16 21:00 10/08/16 20:59 09/08/16 22:51 1 MG Senna/Docusate Sodium (Senokot S Tab) 1 tab DAILY@1200 PO 09/09/16 12:00 10/09/16 11:59 Triamcinolone Acetonide (Kenalog 0.1% Cream) 1 appln BID PRN EXT 09/08/16 18:30 10/08/16 18:29 Venlafaxine HCl (effeXOR EXTENDED REL CAP) 75 mg DAILY@1200 PO 09/09/16 12:00 10/09/16 11:59 Lovastatin (Mevacor Tab) 40 mg PM PO 09/08/16 21:00 10/08/16 20:59 09/08/16 22:51 40 MG Gadobutrol (Gadavist) 5.5 mmol UD PRN IV 09/08/16 22:30 09/12/16 22:29 Insulin Aspart (novoLOG ASPART) SLIDING SCALE If C... ACHS SC 09/09/16 06:30 10/09/16 06:29 Glucose (Glucose 40% Gel) 15-30 GRAMS 15 GRAMS... UD PRN PO 09/09/16 01:15 10/09/16 01:14 Glucose (Glucose Chew Tab) 4-8 Tablets 4 Tabl... UD PRN PO 09/09/16 01:15 10/09/16 01:14 Dextrose (Dextrose 50% 50ML Syringe) 25-50ML OF 50% DW IV FOR... UD PRN IV 09/09/16 01:15 10/09/16 01:14 Glucagon (Glucagon Inj) 1 mg UD PRN SQ 09/09/16 01:15 10/09/16 01:14 Review of Systems Constitutional: No fatigue, No weakness Eyes: + worsening of vision, No diplopia ENT: No hearing loss, No tinnitus Respiratory: No cough, No shortness of breath Cardiovascular: No chest pain, No palpitations Abdomen: No nausea, No pain Musculoskeletal: No joint pain, No muscle pain Genitourinary - Female: No dysuria, No urinary incontinence Neurologic: + balance problems, + memory loss, No numbness/tingling, No vertigo , No weakness Psychiatric: No anxiety, No depression symptoms Endocrine: + fatigue Hematologic / Lymphatic: No abnormal bleeding/bruising Integumentary: No rash Allergic / Immunologic: No hives Physical Exam Vital Signs (Past 24 Hrs): Date Time Temp Pulse Resp B/P Pulse Ox O2 Delivery O2 Flow Rate FiO2 09/09/16 07:23 36.7 69 18 155/98 95 Room Air 89 156/98 96 124/79 09/09/16 04:37 36.7 86 18 97 Room Air 09/09/16 04:00 Room Air 09/09/16 03:06 66/52 09/09/16 03:04 133/63 09/09/16 03:01 122/81 09/09/16 00:34 36.8 86 20 126/79 91 Room Air 09/09/16 00:00 Room Air 09/08/16 20:15 36.9 94 16 157/85 97 Room Air 09/08/16 20:09 94 20 172/85 97 Room Air 09/08/16 19:11 91 18 174/92 97 Room Air 09/08/16 17:35 97 18 159/96 100 Room Air 09/08/16 15:40 86 20 155/83 100 Nasal Cannula 2.0 09/08/16 14:52 79 16 155/60 82 144/95 92 125/108 3/30/17 14:52 98 Room Air 09/08/16 14:06 37.1 83 16 127/90 98 Room Air 09/08/16 14:04 81 Patient is right-handed. The patient is awake and alert. Speech is normal without aphasia or dysarthria. Mentation and thought processes seem intact with normal conversation although she has some short and intermediate term memory problems. Mood and affect are normal and appropriate. Appearance and grooming are normal. The discs are difficult to visualize but seem sharp. There are no exudates, hemorrhages, or blood vessel changes seen. Pupils are 3mm bilaterally and reactive to light. Extraocular eye muscles are intact without nystagmus. Visual acuity is poor and she has had finger counting bilaterally. There are no deficits to sensation of the face bilaterally. Corneal reflexes are positive bilaterally. Facial strength and symmetry is normal bilaterally. I see no facial droop. Hearing seems intact grossly to voice and finger rub. Palate moves well without asymmetry. There is normal sternocleidomastoid and trapezius strength bilaterally. Tongue is midline with good strength bilaterally. Neck is with full range of motion without discomfort. There are no cervical bruits. There are no cranial or ocular bruits. Heart is without murmur. Cervical, thoracic, and lumbar spine are nontender to palpation. Gait is is not tested but stance sitting up in bed is normal. She does have some lightheadedness with sitting up. With outstretched arms there is no drift. There is an intermittent resting tremor of a mild to moderate nature in the right upper extremity. There is mild postural tremor bilaterally but no significant action tremor. There is no ataxia with [id number] testing. There is decreased facility in the hands. There are no abnormal involuntary movements noted. Motor strength is 5/5 diffusely in the arms bilaterally including deltoids, biceps, brachioradialis, wrist flexors and extensors, financial coach, and intrinsic hand muscles. Motor strength is 5/5 diffusely in the legs bilaterally including hip flexors, quadriceps, hamstring, gastrocnemius, tibialis anterior, tibialis posterior, and peroneii muscles bilaterally. Toe extensors are normal and there is good bulk in the extensor digitorum brevis muscle bilaterally. The limbs have mild cogwheel rigidity bilaterally. There is very mild bradykinesia in general. Muscle bulk is normal, there is no tenderness, no myotonia noted to percussion, and no fasciculations seen. Sensory examination is intact to pin and touch throughout all four limbs. Reflexes are 2/4 in the biceps, triceps, brachioradialis, and quadriceps tendons bilaterally. Achilles tendon reflexes are absent bilaterally. Toes are downgoing with plantar stimulation bilaterally. Peripheral pulses are present and of normal quality distally in all four limbs. There is no peripheral edema noted. Laboratory Results Past 24 Hours: Test 09/08/16 14:27 09/08/16 14:30 09/08/16 16:00 09/09/16 00:55 Bedside Glucose 97 mg/dl (70-90) RDW Standard Deviation 47.1 fL (36.4-46.3) RDW Coefficient of Variation 13.9 % (11.5-14.5) White Blood Count 6.72 K/uL (4.8-10.8) Red Blood Count 3.98 M/uL (4.2-5.4) Hemoglobin 12.7 g/dL (12.0-16.0) Hematocrit 37.0 % (37-47) Mean Corpuscular Volume 93.0 fL (80-100) Mean Corpuscular Hemoglobin 31.9 pg (25-34) Mean Corpuscular Hemoglobin Concent 34.3 g/dl (32-36) Platelet Count 285 K/uL (130-400) Mean Platelet Volume 8.9 fL (7.4-10.4) Neutrophils (%) (Auto) 53.6 % Lymphocytes (%) (Auto) 25.4 % Monocytes (%) (Auto) 12.9 % Eosinophils (%) (Auto) 7.1 % Basophils (%) (Auto) 0.6 % Neutrophils # (Auto) 3.59 K/uL (1.4-6.5) Lymphocytes # (Auto) 1.71 K/uL (1.2-3.4) Monocytes # (Auto) 0.87 K/uL (0.11-0.59) Eosinophils # (Auto) 0.48 K/uL (0-0.5) Basophils # (Auto) 0.04 K/uL (0-0.2) Immature Granulocyte % (Auto) 0.4 % Immature Granulocyte # (Auto) 0.03 K/uL (0.00-0.02) Erythrocyte Sedimentation Rate 9 mm/hr (0-21) Prothrombin Time 10.9 SECONDS (9.0-12.0) Prothromb Time International Ratio 1.0 (0.9-1.1) Activated Partial Thromboplast Time 24.9 SECONDS (21.0-31.0) Partial Thromboplastin Ratio 1.0 Est Creatinine Clear Calc Drug Dose 33.3 ml/min Magnesium Level 2.2 mg/dl (1.8-2.4) Total Bilirubin 0.5 mg/dl (0.2-1) Direct Bilirubin 0.1 mg/dl (0-0.2) Aspartate Amino Transf (AST/SGOT) 9 U/L (15-37) Alanine Aminotransferase (ALT/SGPT) 9 U/L (12-78) Alkaline Phosphatase 102 U/L (45-117) Total Protein 6.9 gm/dl (6.4-8.2) Albumin 3.5 gm/dl (3.4-5.0) Thyroid Stimulating Hormone (TSH) 2.640 uIu/ml (0.300-4.500) Prolactin 6.79 ng/mL Lyme Disease IgG Antibody NEG (NEG) Lyme Disease IgM Antibody NEG (NEG) Urine Color YELLOW Urine Appearance CLEAR (CLEAR) Urine pH 6.0 (4.5-7.5) Urine Specific [place] 1.013 (1.000-1.030) Urine Protein NEG (NEG) Urine Glucose (UA) NEG (NEG) Urine Ketones NEG (NEG) Urine Occult Blood NEG (NEG) Urine Nitrite NEG (NEG) Urine Bilirubin NEG (NEG) Urine Urobilinogen NEG (NEG) Urine Leukocyte Esterase SMALL (NEG) Urine WBC (Auto) 1-5 /hpf (0-5) Urine RBC (Auto) 0-4 /hpf (0-4) Urine Hyaline Casts (Auto) 1-5 /lpf (0-5) Urine Epithelial Cells (Auto) 10-20 /lpf (0-5) Urine Bacteria (Auto) 2+ (NEG) Total Creatine Kinase 35 U/L (26-192) Creatine Kinase MB 0.6 ng/ml (0.5-3.6) Creatine Kinase MB Ratio 1.7 (0-3.0) Troponin I 0.019 ng/ml (0-0.045) Test 09/09/16 04:44 Imaging MRI OF THE BRAIN WITHOUT AND WITH IV CONTRAST CLINICAL HISTORY: Stroke. Confusion. Headache. COMPARISON STUDY: MRI of the brain September 06, [address] September 08, 2016. TECHNIQUE: Utilizing a 1.5 Monica magnet and dedicated coil, multiplanar, multiecho imaging of the brain was performed pre and postcontrast administration. IV administration of 5.5 mL of Gadavist contrast was uneventful. FINDINGS: This exam is moderately compromised by motion artifact. However, there are no areas of restricted diffusion to suggest acute infarct. No acute intracranial hemorrhage, midline shift or mass effect is present. Moderate to marked atrophy is noted. Extensive white matter signal abnormality suggests small vessel disease. No intracranial mass or pathologic enhancement is identified. The appearance of the brain is unchanged since MRI of September 06, 2016. Calvarial signal is maintained. Signal abnormality at this C1-C2 articulation is probably degenerative. IMPRESSION: 1. No acute intracranial findings. 2. Extensive small vessel disease and moderate to marked atrophy. 3. No intracranial mass. Electronically signed by: Burton Damon M.D. 09/08/2016 11:21 PM Impression 1. Episode September 08 consisting of some staring and altered communication. This is a very similar episode compared to her previous episodes in the last 2 weeks including September 05 which resulted in an admission. However, in the September 05 event she had some expressive aphasia. I am not certain the exact etiology of these episodes, but I am not convinced they represent a vascular TIA like events. She certainly has not had a stroke either. Other week or yesterday. She does have orthostasis and if she is dropping her pressure she could have confusion, staring, and lightheadedness. Her very poor vision can lead to the sense of staring spells as well. There is no evidence to suggest seizures either. Currently she has a neurologic examination consistent with mild Parkinson's disease with a resting tremor or rigidity, but no focal abnormality suggesting a stroke. 2. Parkinson's disease Currently this is mild to moderate on Sinemet and Requip. She is stable. 3. Mild vascular dementia She has moderate small vessel ischemic disease seen on MRI diffusely, although an old scattered nature. 4. 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 5. Significant orthostasis noted 6. Restless leg syndrome, fairly well controlled on Requip 7. History of depression, stable on current dose of venlafaxine 8. History of hypertension with some variable readings on admission Plan 1. EEG is pending. 2. Consider initiation of Plavix 75 mg daily 3. Increase hydration along with other measures to treat orthostasis. 4. Keep Sinemet and Requip the same for now. If she continues to have some restless leg syndrome symptoms during the day we could increase Requip to 0.5 mg in the morning, 0.5 mg in the afternoon, and 1 mg at night. 5. Physical and occupational therapy consults and consider debilitation hospital stay at [facility] prior to returning to the [place]. Increase activity as able. 6. Keep venlafaxine the same. 7. There is no need for initiation of medication for vascular dementia. Patient should follow-up with Dr. Loyd as an outpatient. I spoke with Dr. Dodd regarding this case including differential diagnosis and treatment options.
[2016-09-09 08:55] LABS: BASO % 0.6 %; BASO ABS # 0.04 K/uL (0-0.2); COMPLETE YES; EOS % 8.5 %; IG% 0.3 %; LYMPH % 28.8 %; LYMPH ABS # 1.86 K/uL (1.2-3.4); MEAN CELL VOLUME 94.6 fL (80-100); MEAN CORPUSCULAR HEMOGLOBIN 32.9 pg (25-34); MEAN CORPUSCULAR HGB CONC 34.8 g/dl (32-36); MEAN PLATELET VOLUME 8.9 fL (7.4-10.4); MONO % 8.2 %; NEUT % 53.6 %; PLATELET COUNT 286 K/uL (130-400); RED BLOOD COUNT 4.23 M/uL (4.2-5.4); WHITE BLOOD COUNT 6.46 K/uL (4.8-10.8)
[2016-09-09 09:25] LABS: CKMB/CK RATIO 1.8 (0-3.0)
[2016-09-09 09:34] LABS: BUN/CREATININE RATIO 24.6 (10-20); CALCIUM 9.1 mg/dl (8.5-10.1); CREATININE 0.83 mg/dl (0.60-1.20); POTASSIUM 4.1 mmol/L (3.5-5.1)
[2016-09-09 09:37] LABS: CHOLESTEROL/HDL RATIO 2.5
[2016-09-09 09:48] LABS: ESTIMATED AVERAGE GLUCOSE 123 mg/dl; HA1C FLAG Normal (Normal)
--- NOTE | 2016-09-09 09:52 | EEG Procedure Note ---
EEG Procedure Note Date of Service Sep 09, 2016. Start / End Times Start Time: 6:32 AM End Time: 6:52 AM Referring Physician Shanika Block History This is a 81-year-old female who presents with stroke like symptoms. EEG for further evaluation of possible seizure etiology. Home Medication List Scheduled Carbidopa-Levodopa (Sinemet Cr 25MG/100MG), 1.5 TAB PO QID Ferrous Sulfate (Ferrous Sulfate), 325 MG PO BIDM Fluticasone Prop/Salmeterol (Advair Diskus 500-50 Mcg/Dose), 1 PUFF INH BID Lovastatin (Mevacor), 40 MG PO DAILY Melatonin (Melatonin), 3 MG PO HS Metoprolol Tartrate (Lopressor), 25 MG PO BID Montelukast Sodium (Singulair), 10 MG PO HS Pantoprazole (Protonix), 40 MG PO BID Ropinirole (Requip), 0.5 MG PO DAILY@1200 Ropinirole HCl (Ropinirole HCl), 1 MG PO HS Senna/Docusate Sod (Senokot S), 1 TAB PO DAILY@1200 Venlafaxine Hcl (Effexor Extended Rel), 75 MG PO DAILY@1200 Scheduled PRN Acetaminophen (Tylenol), 500 MG PO Q4 PRN for Pain Albuterol Hfa (Ventolin Hfa), 2 PUFFS INH Q6H PRN for BREATHING/ASTHMA Hydroxyzine HCl (Hydroxyzine HCl), 10 MG PO HS PRN for ITCHING/ANXIETY Triamcinolone Acet (Aristocort 0.1%), 1 APPLN TOP BID PRN for PRN Inpatient Medication List Current Inpatient Medications Medications (Trade) Dose Ordered Sig/Joceline Route Start Time Stop Time Status Last Admin Dose Admin Clopidogrel Bisulfate (plAVix TAB) 75 mg QAM PO 09/09/16 09:00 10/09/16 08:59 09/09/16 07:55 75 MG Miscellaneous Information (Pharmacist Discharge Med Rec Consult) 1 ea UD PRN N/A 09/08/16 18:30 10/08/16 18:29 Albuterol (Ventolin Hfa Inhaler) 2 puffs Q6H PRN INH 09/08/16 18:30 10/08/16 18:29 Carbidopa/Levodopa (Sinemet Cr 25/ 100MG Tab) 1.5 tab QID PO 3/30/17 21:00 10/08/16 20:59 09/09/16 07:56 1.5 TAB Ferrous Sulfate (Feosol Tab) 325 mg BIDM PO 09/09/16 08:00 10/09/16 07:59 09/09/16 07:54 325 MG Salmeterol Xinafoate/ Fluticasone (Advair Diskus 500/50 Inh) 1 puff BID INH 09/09/16 09:00 10/09/16 08:59 09/09/16 07:56 1 PUFF Hydroxyzine HCl (Vistaril Tab) 10 mg HS PRN PO 09/08/16 18:30 10/08/16 18:29 Metoprolol Tartrate (Lopressor Tab) 25 mg BID PO 09/08/16 21:00 10/08/16 20:59 09/09/16 07:55 25 MG Montelukast Sodium (Singulair Tab) 10 mg HS PO 09/08/16 21:00 10/08/16 20:59 09/08/16 22:52 10 MG Pantoprazole Sodium (Protonix Tab) 40 mg BID PO 09/08/16 21:00 10/08/16 20:59 09/09/16 07:54 40 MG Ropinirole HCl (Requip Tab) 0.5 mg DAILY@1200 PO 09/09/16 12:00 10/09/16 11:59 Ropinirole HCl (Requip Tab) 1 mg HS PO 09/08/16 21:00 10/08/16 20:59 09/08/16 22:51 1 MG Senna/Docusate Sodium (Senokot S Tab) 1 tab DAILY@1200 PO 09/09/16 12:00 10/09/16 11:59 Triamcinolone Acetonide (Kenalog 0.1% Cream) 1 appln BID PRN EXT 09/08/16 18:30 10/08/16 18:29 Venlafaxine HCl (effeXOR EXTENDED REL CAP) 75 mg DAILY@1200 PO 09/09/16 12:00 10/09/16 11:59 Lovastatin (Mevacor Tab) 40 mg PM PO 09/08/16 21:00 10/08/16 20:59 09/08/16 22:51 40 MG Gadobutrol (Gadavist) 5.5 mmol UD PRN IV 09/08/16 22:30 09/12/16 22:29 Insulin Aspart (novoLOG ASPART) SLIDING SCALE If C... ACHS SC 09/09/16 06:30 10/09/16 06:29 Glucose (Glucose 40% Gel) 15-30 GRAMS 15 GRAMS... UD PRN PO 09/09/16 01:15 10/09/16 01:14 Glucose (Glucose Chew Tab) 4-8 Tablets 4 Tabl... UD PRN PO 09/09/16 01:15 10/09/16 01:14 Dextrose (Dextrose 50% 50ML Syringe) 25-50ML OF 50% DW IV FOR... UD PRN IV 09/09/16 01:15 10/09/16 01:14 Glucagon (Glucagon Inj) 1 mg UD PRN SQ 09/09/16 01:15 10/09/16 01:14 Description This is a 21 electrode EEG with a single channel dedicated to limited EKG. The electrodes were placed in accordance with the International 10-20 system. Hyperventilation and photic stimulation were not done At the start of this recording, the patient was in reported altered mental status. Background was poorly composed with no well formed anterior to posterior gradient. Background was composed of symmetric moderate amplitude predominantly 6-7 Hz theta frequencies with intermixed delta and alpha frequencies. There was no state changes or sleep transients. Interpretation This is an abnormal routine EEG secondary to moderate diffuse background disorganization and slowing There was no epileptiform discharges or electrographic seizures. Clinical Correlation This EEG indicates a moderate encephalopathy of nonspecific etiology.
[2016-09-09] MEDS: DOCUSATE SODIUM/SENNA 50/8.6MG TAB PO SCH (12:40)
[2016-09-09] MEDS: ROPINIROLE HCL 1 MG TAB PO SCH ×2 (12:40→20:44)
[2016-09-09] MEDS: VENLAFAXINE HCL XR 75 MG CAPXR PO SCH (12:40)
[2016-09-09] MEDS: LOVASTATIN 20 MG TAB PO SCH (20:43)
[2016-09-09] MEDS: MONTELUKAST SOD 10 MG TAB PO SCH (20:45)
[2016-09-10] VITALS (8 sets, daily range): BP systolic 104–160; BP diastolic 68–90; PULSE 74–90; TEMP 36.6–37; O2SAT 93–97
[2016-09-10 05:48] LABS: BASO % 0.4 %; BASO ABS # 0.03 K/uL (0-0.2); COMPLETE YES; EOS % 7.5 %; HEMATOCRIT 36.8 % (37-47); IG% 0.1 %; LYMPH % 28.8 %; LYMPH ABS # 2.04 K/uL (1.2-3.4); MEAN CELL VOLUME 94.1 fL (80-100); MEAN CORPUSCULAR HEMOGLOBIN 32.2 pg (25-34); MEAN CORPUSCULAR HGB CONC 34.2 g/dl (32-36); MONO % 10.2 %; PLATELET COUNT 267 K/uL (130-400); RED BLOOD COUNT 3.91 M/uL (4.2-5.4); WHITE BLOOD COUNT 7.08 K/uL (4.8-10.8)
[2016-09-10 06:17] LABS: BUN/CREATININE RATIO 23.2 (10-20); CALCIUM 9.1 mg/dl (8.5-10.1); CREATININE 0.92 mg/dl (0.60-1.20); POTASSIUM 4.3 mmol/L (3.5-5.1)
[2016-09-10] MEDS: INSULIN ASPART 100 UNITS/ML 3 ML PEN SC SCH ×4 (06:30→20:25)
--- NOTE | 2016-09-10 08:05 | Neurology Progress Notes ---
Neurology Progress Note Date of Service Sep 10, 2016. Subjective The patient has no headache this morning. She is slightly woozy when she sits up in bed but she is not having any true vertigo or spinning. She has no new pain or weakness. Her speech and memory seem to be stable. Nursing reports no new issues overnight and she has not had any seizures or episodes of altered responsiveness. EEG showed some moderate slowing in general but no potentially epileptogenic activity. Objective Date Time Temp Pulse Resp B/P Pulse Ox O2 Delivery O2 Flow Rate FiO2 09/10/16 07:41 36.8 85 16 160/90 95 Room Air 09/10/16 04:00 97 Room Air 2.0 09/10/16 03:24 36.6 87 20 129/80 97 Room Air 09/10/16 00:53 36.6 90 18 112/68 95 Room Air 09/10/16 00:25 Room Air 09/09/16 20:00 Room Air 09/09/16 19:17 36.7 103 20 146/78 97 Room Air 09/09/16 16:00 93 Room Air 09/09/16 14:43 36.8 104 18 114/61 93 Room Air 108 118/78 114 90/53 09/09/16 12:00 Room Air 09/09/16 11:45 69 99 09/09/16 11:29 36.9 69 18 127/84 95 Room Air Last 24 Hours Test 09/09/16 08:06 09/09/16 08:43 09/09/16 11:37 09/09/16 16:28 Bedside Glucose 104 mg/dl 100 mg/dl 116 mg/dl White Blood Count 6.46 K/uL Red Blood Count 4.23 M/uL Hemoglobin 13.9 g/dL Hematocrit 40.0 % Mean Corpuscular Volume 94.6 fL Mean Corpuscular Hemoglobin 32.9 pg Mean Corpuscular Hemoglobin Concent 34.8 g/dl Platelet Count 286 K/uL Mean Platelet Volume 8.9 fL Neutrophils (%) (Auto) 53.6 % Lymphocytes (%) (Auto) 28.8 % Monocytes (%) (Auto) 8.2 % Eosinophils (%) (Auto) 8.5 % Basophils (%) (Auto) 0.6 % Neutrophils # (Auto) 3.46 K/uL Lymphocytes # (Auto) 1.86 K/uL Monocytes # (Auto) 0.53 K/uL Eosinophils # (Auto) 0.55 K/uL Basophils # (Auto) 0.04 K/uL RDW Standard Deviation 47.6 fL RDW Coefficient of Variation 13.8 % Immature Granulocyte % (Auto) 0.3 % Immature Granulocyte # (Auto) 0.02 K/uL Sodium Level 140 mmol/L Potassium Level 4.1 mmol/L Chloride Level 105 mmol/L Carbon Dioxide Level 27 mmol/L Anion Gap 8.0 mmol/L Blood Urea Nitrogen 20 mg/dl Creatinine 0.83 mg/dl Est Creatinine Clear Calc Drug Dose 43.6 ml/min Estimated GFR () 76.6 Estimated GFR (Non- 66.1 BUN/Creatinine Ratio 24.6 Random Glucose 116 mg/dl Estimated Average Glucose 123 mg/dl Hemoglobin A1c 5.9 % Calcium Level 9.1 mg/dl Total Creatine Kinase 38 U/L Creatine Kinase MB 0.7 ng/ml Creatine Kinase MB Ratio 1.8 Troponin I < 0.015 ng/ml Triglycerides Level 169 mg/dl Cholesterol Level 165 mg/dl HDL Cholesterol 66 mg/dl LDL Cholesterol, Calculated 65 mg/dl VLDL Cholesterol, Calculated 34 mg/dl Cholesterol/HDL Ratio 2.5 Test 09/09/16 20:06 09/10/16 05:12 Bedside Glucose 94 mg/dl White Blood Count 7.08 K/uL Red Blood Count 3.91 M/uL Hemoglobin 12.6 g/dL Hematocrit 36.8 % Mean Corpuscular Volume 94.1 fL Mean Corpuscular Hemoglobin 32.2 pg Mean Corpuscular Hemoglobin Concent 34.2 g/dl Platelet Count 267 K/uL Mean Platelet Volume 9.0 fL Neutrophils (%) (Auto) 53.0 % Lymphocytes (%) (Auto) 28.8 % Monocytes (%) (Auto) 10.2 % Eosinophils (%) (Auto) 7.5 % Basophils (%) (Auto) 0.4 % Neutrophils # (Auto) 3.75 K/uL Lymphocytes # (Auto) 2.04 K/uL Monocytes # (Auto) 0.72 K/uL Eosinophils # (Auto) 0.53 K/uL Basophils # (Auto) 0.03 K/uL RDW Standard Deviation 46.9 fL RDW Coefficient of Variation 13.7 % Immature Granulocyte % (Auto) 0.1 % Immature Granulocyte # (Auto) 0.01 K/uL Sodium Level 141 mmol/L Potassium Level 4.3 mmol/L Chloride Level 105 mmol/L Carbon Dioxide Level 28 mmol/L Anion Gap 8.0 mmol/L Blood Urea Nitrogen 21 mg/dl Creatinine 0.92 mg/dl Est Creatinine Clear Calc Drug Dose 39.3 ml/min Estimated GFR () 67.7 Estimated GFR (Non- 58.4 BUN/Creatinine Ratio 23.2 Random Glucose 106 mg/dl Calcium Level 9.1 mg/dl Exam: She is awake and alert. Speech is without significant aphasia or dysarthria. She is slow in movements and response but she knew it was September 10. She follows one-step commands well. She has no significant resting tremor today. Her strength is symmetrical in all 4 limbs. Extraocular eye muscles are intact without nystagmus and there is no facial droop. Current Inpatient Medications Medications (Trade) Dose Ordered Sig/Joceline Route Start Time Stop Time Status Last Admin Dose Admin Clopidogrel Bisulfate (plAVix TAB) 75 mg QAM PO 09/09/16 09:00 10/09/16 08:59 09/09/16 07:55 75 MG Albuterol (Ventolin Hfa Inhaler) 2 puffs Q6H PRN INH 09/08/16 18:30 10/08/16 18:29 Carbidopa/Levodopa (Sinemet Cr 25/ 100MG Tab) 1.5 tab QID PO 09/08/16 21:00 10/08/16 20:59 09/09/16 20:45 1.5 TAB Ferrous Sulfate (Feosol Tab) 325 mg BIDM PO 09/09/16 08:00 10/09/16 07:59 09/09/16 18:09 325 MG Salmeterol Xinafoate/ Fluticasone (Advair Diskus 500/50 Inh) 1 puff BID INH 09/09/16 09:00 10/09/16 08:59 09/09/16 20:42 1 PUFF Hydroxyzine HCl (Vistaril Tab) 10 mg HS PRN PO 09/08/16 18:30 10/08/16 18:29 Metoprolol Tartrate (Lopressor Tab) 25 mg BID PO 09/08/16 21:00 10/08/16 20:59 09/09/16 20:43 25 MG Montelukast Sodium (Singulair Tab) 10 mg HS PO 09/08/16 21:00 10/08/16 20:59 09/09/16 20:45 10 MG Pantoprazole Sodium (Protonix Tab) 40 mg BID PO 09/08/16 21:00 10/08/16 20:59 09/09/16 20:45 40 MG Ropinirole HCl (Requip Tab) 0.5 mg DAILY@1200 PO 09/09/16 12:00 10/09/16 11:59 09/09/16 12:40 0.5 MG Ropinirole HCl (Requip Tab) 1 mg HS PO 09/08/16 21:00 10/08/16 20:59 09/09/16 20:44 1 MG Senna/Docusate Sodium (Senokot S Tab) 1 tab DAILY@1200 PO 09/09/16 12:00 10/09/16 11:59 09/09/16 12:40 1 TAB Triamcinolone Acetonide (Kenalog 0.1% Cream) 1 appln BID PRN EXT 09/08/16 18:30 10/08/16 18:29 Venlafaxine HCl (effeXOR EXTENDED REL CAP) 75 mg DAILY@1200 PO 09/09/16 12:00 10/09/16 11:59 09/09/16 12:40 75 MG Lovastatin (Mevacor Tab) 40 mg PM PO 09/08/16 21:00 10/08/16 20:59 09/09/16 20:43 40 MG Gadobutrol (Gadavist) 5.5 mmol UD PRN IV 09/08/16 22:30 09/12/16 22:29 Insulin Aspart (novoLOG ASPART) SLIDING SCALE If C... ACHS SC 09/09/16 06:30 10/09/16 06:29 Glucose (Glucose 40% Gel) 15-30 GRAMS 15 GRAMS... UD PRN PO 09/09/16 01:15 10/09/16 01:14 Glucose (Glucose Chew Tab) 4-8 Tablets 4 Tabl... UD PRN PO 09/09/16 01:15 10/09/16 01:14 Dextrose (Dextrose 50% 50ML Syringe) 25-50ML OF 50% DW IV FOR... UD PRN IV 09/09/16 01:15 10/09/16 01:14 Glucagon (Glucagon Inj) 1 mg UD PRN SQ 09/09/16 01:15 10/09/16 01:14 Impression 1. Episode September 08 consisting of some staring and altered communication. She has had no episodes since in the hospital. MRI of the brain showed no stroke. EEG showed no potentially epileptogenic activity. This is a very similar episode compared to her previous episodes in the last 2 weeks including September 05 which resulted in an admission. However, in the September 05 event she had some expressive aphasia. I am not certain the exact etiology of these episodes, but I am not convinced they represent a vascular/TIA like events. She certainly has not had a stroke either, including last week, earlier this or September 08. She does have orthostasis and if she is dropping her pressure she could have confusion, staring, and lightheadedness. Her very poor vision can lead to the sense of staring spells as well. There is no evidence to suggest seizures either. Currently she has a neurologic examination consistent with mild Parkinson's disease with a resting tremor or rigidity, but no focal abnormality suggesting a stroke. 2. Parkinson's disease Currently this is mild to moderate on Sinemet and Requip. She is stable. 3. Mild vascular dementia She has moderate small vessel ischemic disease seen on MRI diffusely, although an old scattered nature. 4. 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 5. Significant orthostasis noted 6. Restless leg syndrome, fairly well controlled on Requip 7. History of depression, stable on current dose of venlafaxine 8. History of hypertension with some variable readings on admission Plan 1. Consider initiation of Plavix 75 mg daily 2. Increase hydration along with other measures to treat orthostasis. 3. Keep Sinemet and Requip the same for now. If she continues to have some restless leg syndrome symptoms during the day we could increase Requip to 0.5 mg in the morning, 0.5 mg in the afternoon, and 1 mg at night. 4. Physical and occupational therapy consults and consider debilitation hospital stay at [facility] prior to returning to the [place]. Increase activity as able. 5. Keep venlafaxine the same. 6. There is no need for initiation of medication for vascular dementia. Patient should follow-up with Dr. Loyd as an outpatient. I have no further neurologic testing or treatment recommendations to make in this patient at this time. Please contact me if I can be of further assistance.
[2016-09-10] MEDS: CARBIDOPA/LEVODOPA 25/100MG EXT REL TAB PO SCH ×4 (09:00→20:21)
[2016-09-10] MEDS: METOPROLOL TARTRATE 25 MG TAB PO SCH ×2 (09:00→20:23)
[2016-09-10] MEDS: PANTOprazole SOD 40 MG TAB PO SCH ×2 (09:00→20:21)
[2016-09-10] MEDS: FERROUS SULFATE 325 MG TAB PO SCH ×2 (09:00→16:56)
[2016-09-10] MEDS: FLUTICASONE/SALMETEROL (ADVAIR) 500/50 INH 14 PUFF INH SCH ×2 (09:00→20:23)
[2016-09-10] MEDS: CLOPIDOGREL BISULFATE 75 MG TAB PO SCH (09:01)
[2016-09-10] MEDS: DOCUSATE SODIUM/SENNA 50/8.6MG TAB PO SCH (12:00)
[2016-09-10] MEDS: ROPINIROLE HCL 1 MG TAB PO SCH ×2 (12:24→20:22)
[2016-09-10] MEDS: VENLAFAXINE HCL XR 75 MG CAPXR PO SCH (12:24)
--- NOTE | 2016-09-10 13:26 | DIAGNOSTIC IMAGING REPORT ---
KUB CLINICAL HISTORY: Abdominal pain. COMPARISON STUDY: CT of the abdomen and pelvis June 13, 2016. FINDINGS: There is moderate dextroscoliosis of the lumbar spine. The bowel gas pattern is normal. There is a mild to moderate amount of stool within the colon and rectum. A focus of gas within the pelvis may be within the bladder. IMPRESSION: 1. No evidence for a bowel obstruction. 2. Mild to moderate amount of stool within the colon and rectum. 3. Focus of gas projecting over the pelvis. This could reflect gas within the bowel or bladder and could be correlated with a recent history of bladder instrumentation. Electronically signed by: Butron Damon M.D. 09/10/2016 1:25 PM Dictated Date/Time: 09/10/2016 1:22 PM
--- NOTE | 2016-09-10 15:17 | Progress Note ---
Subjective Date of Service: Sep 10, 2016. Subjective Pt evaluation today including: conversation w/ patient, physical exam, chart review, lab review, review of studies, review of inpatient medication list Pt reports abd discomfort but not pain states sick to stomach no nausea, vomiting but states 3 stools today but not loose Mild head pressure specifically in frontal portion Problem List Medical Problems: (1) Altered mental status Status: Acute (2) Contusion of left hip and thigh Status: Acute (3) CVA (cerebral vascular accident) Status: Acute (4) Expressive aphasia Status: Acute (5) Fall Status: Acute (6) Fall Status: Acute (7) Inability to ambulate due to left knee Status: Acute (8) Left knee sprain Status: Acute (9) TIA (transient ischemic attack) Status: Acute (10) TIA (transient ischemic attack) Status: Acute Review of Systems Constitutional: No chills, No fever Respiratory: No cough, No shortness of breath, No sputum, No wheezing Cardiac: No chest pain, No orthopnea Abdomen: No diarrhea, No nausea, No pain, No vomiting Musculoskeletal: No joint pain, No muscle pain Female : No dysuria, No urinary frequency Neurologic: + memory loss, No paralysis Objective Vital Signs Date Time Temp Pulse Resp B/P Pulse Ox O2 Delivery O2 Flow Rate FiO2 09/10/16 12:00 Room Air 09/10/16 11:44 37.0 90 16 104/70 95 Room Air 09/10/16 08:00 Room Air 09/10/16 07:41 36.8 85 16 160/90 95 Room Air 09/10/16 04:00 97 Room Air 2.0 09/10/16 03:24 36.6 87 20 129/80 97 Room Air 09/10/16 00:53 36.6 90 18 112/68 95 Room Air 09/10/16 00:25 Room Air 09/09/16 20:00 Room Air 09/09/16 19:17 36.7 103 20 146/78 97 Room Air 09/09/16 16:00 93 Room Air 09/09/16 14:43 36.8 104 18 114/61 93 Room Air 108 118/78 114 90/53 Physical Exam General Appearance: WD/WN, + mild distress Neck: supple, no adenopathy Respiratory/Chest: lungs clear, normal breath sounds Cardiovascular: no edema, no gallop Abdomen: non tender, soft 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: alert, normal mood/affect Laboratory Results Last 24 Hours Test 09/09/16 16:28 09/09/16 20:06 09/10/16 05:12 09/10/16 07:57 Bedside Glucose 116 mg/dl 94 mg/dl 112 mg/dl White Blood Count 7.08 K/uL Red Blood Count 3.91 M/uL Hemoglobin 12.6 g/dL Hematocrit 36.8 % Mean Corpuscular Volume 94.1 fL Mean Corpuscular Hemoglobin 32.2 pg Mean Corpuscular Hemoglobin Concent 34.2 g/dl Platelet Count 267 K/uL Mean Platelet Volume 9.0 fL Neutrophils (%) (Auto) 53.0 % Lymphocytes (%) (Auto) 28.8 % Monocytes (%) (Auto) 10.2 % Eosinophils (%) (Auto) 7.5 % Basophils (%) (Auto) 0.4 % Neutrophils # (Auto) 3.75 K/uL Lymphocytes # (Auto) 2.04 K/uL Monocytes # (Auto) 0.72 K/uL Eosinophils # (Auto) 0.53 K/uL Basophils # (Auto) 0.03 K/uL RDW Standard Deviation 46.9 fL RDW Coefficient of Variation 13.7 % Immature Granulocyte % (Auto) 0.1 % Immature Granulocyte # (Auto) 0.01 K/uL Sodium Level 141 mmol/L Potassium Level 4.3 mmol/L Chloride Level 105 mmol/L Carbon Dioxide Level 28 mmol/L Anion Gap 8.0 mmol/L Blood Urea Nitrogen 21 mg/dl Creatinine 0.92 mg/dl Est Creatinine Clear Calc Drug Dose 39.3 ml/min Estimated GFR () 67.7 Estimated GFR (Non- 58.4 BUN/Creatinine Ratio 23.2 Random Glucose 106 mg/dl Calcium Level 9.1 mg/dl Test 09/10/16 12:05 Bedside Glucose 100 mg/dl Assessment and Plan The patient is a 81 year old female with a history of Hypertension,Parkinson's disease, RLS, MCI, anxiety disorder, asthma, Chronic anemia, GERD, Dyslipidemia , DMII, Osteoporosis, microscopic hematuria, macular degeneration with Davonte Bonnet Syndrome, and Atopic Dermatitis who presents to the Emergency Room via ambulance from the [facility] to be evaluated for an episode of altered mental status and a staring spell where she was unresponsive, along with headache. This is the same presentation she has been having intermittently over the past month or so. She was just discharged from the hospital the day prior to this admission for a similar episode. During that admission, she had a normal MRI of the brain and no stenosis of the internal carotid arteries during that admission. Her echocardiogram showed grade 1 diastolic dysfunction, low normal left ventricular function, but no source of thromboembolism. 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 Staring spells/unresponsive episodes/left-sided headache/subacute CVA of the right caudate nucleus-MRI of the brain degraded by motion artifact but no acute CVA. MRA of the head shows possible stenosis or occlusion of the left vertebral artery. These episodes could be seizure-like activity as well although her prolactin was only 6 at the time of arrival to the ER. She was not orthostatic in the ER. The case was discussed with Dr. Ford of neurology on the phone at the time of admission. -Admitted to telemetry for observation for cardiac arrhythmia -No need to repeat echocardiogram at this time -Start Plavix 75 mg once daily -Check sedimentation rate and Lyme disease. TSH checked last time and was normal -Routine EEG in the morning to rule out seizure activity -Continue statin -Maintaining mean arterial pressure around 100 -Neurology consult appreciated for further recommendations -We'll give Tylenol as needed for headache Hypertension/ abnormal EKG unchanged from multiple previous ECGs-blood pressure mildly hypertensive, allow permissive hypertension in the setting of acute CVA -stress ECHO in 2009 is normal per outpt record review -Continue metoprolol 25 mg by mouth twice a day Parkinson's, RLS, MCI: -Continue Sinemet -continue Requip for RLS -continue FeSO4 tabs from home for RLS vs anemia -follows with Dr. Loyd of Neuro Chronic anemia- improved with iron supplementation as an outpatient. Follows with hematology as per outpt record. PCP has had discussion about repeating endoscopy. Last GI endoscopy done January 2014. She probably is having intermittent GI bleeding from AVMs. However, she is maintaining blood count with iron supplementation. Because she has multiple comorbidities patient and her daughter both agreed to hold off on further endoscopy as outpt unless hemoglobin cannot be maintained with iron supplementation. Hgb in hospital is stable and normal at 12 -continue FeSO4 supplementation -follow CBC GERD- EGD January 2014 showed hiatal hernia, and evidence of chronic acid suppression. -continue PPI Dyslipidemia -She is on lovastatin for dyslipidemia, with diabetes and vascular disease. DMII-mild, diet controlled, hemoglobin A1c in 07/2016 was 6.0% -Sliding scale insulin and Accu-Cheks every before meals at bedtime Osteoporosis -stable -She is on calcium, vitamin D. She took one dose of Actonel and had transient GI upset. Anxiety-stable -Continue venlafaxine Asthma-stable -Continue Advair History of microscopic hematuria-Follows with Urology She has a large cystic mass right shoulder and was evaluated by Dr. Cross. Aspirated several times with recurrence. Surgery not recommended. Davonte Bonnet Syndrome, Legally blind- supportive care Atopic Dermatitis: Aquaphor and triamcinolone cream to skin for severe atopic dermatitis which does predispose her for remote h/o skin infections DVT prophylaxis-SCDs Disposition-full code
[2016-09-10] MEDS: LOVASTATIN 20 MG TAB PO SCH (20:23)
[2016-09-10] MEDS: MONTELUKAST SOD 10 MG TAB PO SCH (20:23)
[2016-09-11] VITALS (7 sets, daily range): BP systolic 79–157; BP diastolic 47–95; PULSE 83–94; TEMP 36.6–36.9; O2SAT 95–98
[2016-09-11 05:54] LABS: BASO % 0.6 %; BASO ABS # 0.04 K/uL (0-0.2); COMPLETE YES; EOS % 8.4 %; HEMATOCRIT 36.3 % (37-47); IG% 0.5 %; LYMPH % 31.3 %; LYMPH ABS # 1.94 K/uL (1.2-3.4); MEAN CELL VOLUME 94.3 fL (80-100); MEAN CORPUSCULAR HEMOGLOBIN 32.5 pg (25-34); MEAN CORPUSCULAR HGB CONC 34.4 g/dl (32-36); MEAN PLATELET VOLUME 9.2 fL (7.4-10.4); MONO % 11.5 %; NEUT % 47.7 %; PLATELET COUNT 271 K/uL (130-400); RED BLOOD COUNT 3.85 M/uL (4.2-5.4)
[2016-09-11 06:20] LABS: BUN/CREATININE RATIO 22.8 (10-20); POTASSIUM 4.3 mmol/L (3.5-5.1)
[2016-09-11] MEDS: INSULIN ASPART 100 UNITS/ML 3 ML PEN SC SCH ×2 (06:30→11:00)
[2016-09-11] MEDS: CARBIDOPA/LEVODOPA 25/100MG EXT REL TAB PO SCH ×2 (08:45→12:17)
[2016-09-11] MEDS: FLUTICASONE/SALMETEROL (ADVAIR) 500/50 INH 14 PUFF INH SCH (08:45)
[2016-09-11] MEDS: METOPROLOL TARTRATE 25 MG TAB PO SCH (08:46)
[2016-09-11] MEDS: PANTOprazole SOD 40 MG TAB PO SCH (08:46)
[2016-09-11] MEDS: CLOPIDOGREL BISULFATE 75 MG TAB PO SCH (08:46)
[2016-09-11] MEDS: FERROUS SULFATE 325 MG TAB PO SCH (08:46)
[2016-09-11] MEDS: DOCUSATE SODIUM/SENNA 50/8.6MG TAB PO SCH (12:00)
[2016-09-11] MEDS: VENLAFAXINE HCL XR 75 MG CAPXR PO SCH (12:17)
[2016-09-11] MEDS: ROPINIROLE HCL 1 MG TAB PO SCH (12:17)
[2016-09-11] MEDS ORDERED: PLV75 PO (13:01)
--- NOTE | 2016-09-11 13:04 | Discharge Instructions ---
Discharge Instructions Date of Service Sep 11, 2016. Admission Reason for Admission: CVA Discharge Discharge Diagnosis / Problem: Altered mental status Discharge Goals Goal(s): Decrease discomfort, Improve function, Increase independence, Improve disease control, Learn about illness, Diagnostic testing Activity Recommendations Activity Limitations: resume your previous activity Exercise/Sports Limitations: none . Instructions / Follow-Up Instructions / Follow-Up Patient to be discharged to [facility] Harmeet pimenteldieter and "altered mental status" likely a manifestation of parkinson's Stroke ruled out Addition of plavix 75 mg once daily to medications No further changes Current Hospital Diet Patient's current hospital diet: AHA Diet (Heart Healthy) Discharge Diet Recommended Diet: AHA Diet (Heart Healthy) Pending Studies Studies pending at discharge: no Laboratory Results Hemoglobin A1c Test 09/09/16 08:43 Range/Units Estimated Average Glucose 123 mg/dl Hemoglobin A1c 5.9 H 4.5-5.6 % Lipid Panel Test 09/09/16 08:43 Range/Units Triglycerides Level 169 H 0-150 mg/dl Cholesterol Level 165 0-200 mg/dl HDL Cholesterol 66 mg/dl Cholesterol/HDL Ratio 2.5 LDL Cholesterol, Calculated 65 mg/dl Medical Emergencies . Who to Call and When: Medical Emergencies: If at any time you feel your situation is an emergency, please call 911 immediately. . Non-Emergent Contact Non-Emergency issues call your: Primary Care Provider Call Non-Emergent contact if: you have a fever, your pain is worsening . . "Provider Documentation" section prepared by Filiberto Dodd. VTE Core Measure Inpt VTE Proph given/why not?: Other Anticoagulation
--- NOTE | 2016-09-11 14:29 | Discharge Summary ---
Discharge Summary Date of Service Sep 11, 2016. Discharge Summary Admission Date: Sep 08, 2016 at 18:58 Discharge Date: Sep 11, 2016 Discharge Disposition: Rehab ([facility]) Principal Diagnosis: encephalopathy Procedures: eeg Consultations: neurology Discharge Exam Review of Systems: Constitutional: No chills, No fever Respiratory: No cough, No dyspnea on exertion, No shortness of breath, No sputum, No wheezing Cardiovascular: No chest pain, No orthopnea Abdomen: No diarrhea, No nausea, No pain, No vomiting Musculoskeletal: No joint pain, No muscle pain Genitourinary - Female: No dysuria, No urinary frequency Neurologic: No paralysis, No weakness Psychiatric: + anxiety, No depression symptoms Physical Exam: General Appearance: WD/WN, no apparent distress Neck: supple, no adenopathy Respiratory/Chest: chest non-tender, lungs clear Cardiovascular: no edema, no gallop Abdomen / GI: non tender, soft 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: alert, + depressed affect Hospital Course The patient is a 81 year old female with a history of Hypertension,Parkinson's disease, RLS, MCI, anxiety disorder, asthma, Chronic anemia, GERD, Dyslipidemia , DMII, Osteoporosis, microscopic hematuria, macular degeneration with Davonte Bonnet Syndrome, and Atopic Dermatitis who presents to the Emergency Room via ambulance from the [facility] to be evaluated for an episode of altered mental status and a staring spell where she was unresponsive, along with headache. This is the same presentation she has been having intermittently over the past month or so. She was just discharged from the hospital the day prior to this admission for a similar episode. During that admission, she had a normal MRI of the brain and no stenosis of the internal carotid arteries during that admission. Her echocardiogram showed grade 1 diastolic dysfunction, low normal left ventricular function, but no source of thromboembolism. 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 Staring spells/unresponsive episodes/left-sided headache/subacute CVA of the right caudate nucleus-MRI of the brain degraded by motion artifact but no acute CVA. MRA of the head shows possible stenosis or occlusion of the left vertebral artery. The case was discussed with Dr. Ford of neurology on the phone at the time of admission. -Admitted to telemetry for observation for cardiac arrhythmia -No need to repeat echocardiogram at this time -Start Plavix 75 mg once daily -Check sedimentation rate and Lyme disease. TSH checked last time and was normal -EEG ruled out seizure activity -Continue statin -Maintaining mean arterial pressure around 100 -Neurology consult appreciated for further recommendations, unknown etiology of these episodes, but not convinced they represent a vascular/ TIA like events. She certainly has not had a stroke either, including last week , earlier this week or September 08. She does have orthostasis and if she is dropping her pressure she could have confusion, staring, and lightheadedness. Her very poor vision can lead to the sense of staring spells as well. There is no evidence to suggest seizures either. Hypertension/ abnormal EKG unchanged from multiple previous ECGs-blood pressure mildly hypertensive, allow permissive hypertension in the setting of acute CVA -stress ECHO in 2009 is normal per outpt record review -Continue metoprolol 25 mg by mouth twice a day Parkinson's, RLS, MCI: -Continue Sinemet -continue Requip for RLS -continue FeSO4 tabs from home for RLS vs anemia -follows with Dr. Loyd of Neuro Chronic anemia- improved with iron supplementation as an outpatient. Follows with hematology as per outpt record. PCP has had discussion about repeating endoscopy. Last GI endoscopy done January 2014. She probably is having intermittent GI bleeding from AVMs. However, she is maintaining blood count with iron supplementation. Because she has multiple comorbidities patient and her daughter both agreed to hold off on further endoscopy as outpt unless hemoglobin cannot be maintained with iron supplementation. Hgb in hospital is stable and normal at 12 -continue FeSO4 supplementation -follow CBC GERD - EGD January 2014 showed hiatal hernia, and evidence of chronic acid suppression, continue PPI Dyslipidemia - she is on lovastatin for dyslipidemia, with diabetes and vascular disease. DMII - mild, diet controlled, hemoglobin A1c in 07/2016 was 6.0%, sliding scale insulin and Accu-Cheks every before meals at bedtime Osteoporosis - stable, she is on calcium, vitamin D. She took one dose of actonel and had transient GI upset. Anxiety-stable, continue venlafaxine Asthma-stable, continue advair History of microscopic hematuria - Follows with Urology She has a large cystic mass right shoulder and was evaluated by Dr. Cross. Aspirated several times with recurrence. Surgery not recommended. Davonte Bonnet Syndrome, Legally blind - supportive care Atopic Dermatitis: Aquaphor and triamcinolone cream to skin for severe atopic dermatitis which does predispose her for remote h/o skin infections DVT prophylaxis-SCDs Disposition-full code Total Time Spent: Greater than 30 minutes This includes examination of the patient, discharge planning, medication reconciliation, and communication with other providers. Discharge Instructions Please refer to the electronic Patient Visit Report (Discharge Instructions) for additional information. Additional Copies To Artemio Cleary M.D.
[2016-12-03] MEDS ORDERED: METO25TA56 PO (14:12)
[2016-12-03] MEDS ORDERED: CYAN1SUB13 PO (14:12)
[2016-12-03] MEDS ORDERED: NRN100 PO (14:12)
[2016-12-03] MEDS ORDERED: ULT50X PO (14:12)
[2016-12-03] MEDS ORDERED: ACET-24 PO (14:12)
[2016-12-03] MEDS ORDERED: FLV1 PO (14:12)
== END 2016-09-11 15:06 | DRG 72 ==
LOC: ENRESERVDT → ENRESERVTM → EDBD 13:53 → C.EDA 13:54 → C.MED 18:58
PROVIDERS: ADMIT Family Medicine; ATTEND Hospitalist
DX: G93.40 Encephalopathy, unspecified (principal); M19.011 Primary osteoarthritis, right shoulder; G20 Parkinson's disease; D64.9 Anemia, unspecified; R31.29 Other microscopic hematuria; I10 Essential (primary) hypertension; F01.50 Vascular dementia, unspecified severity, without behavioral disturbance, psychotic disturbance, mood disturbance, and anxiety; H35.30 Unspecified macular degeneration; E11.9 Type 2 diabetes mellitus without complications; K21.9 Gastro-esophageal reflux disease without esophagitis; J45.909 Unspecified asthma, uncomplicated; F41.9 Anxiety disorder, unspecified; M81.0 Age-related osteoporosis without current pathological fracture; E78.5 Hyperlipidemia, unspecified; H54.8 Legal blindness, as defined in USA; G25.81 Restless legs syndrome; L20.9 Atopic dermatitis, unspecified; R51 Headache; F32.9 Major depressive disorder, single episode, unspecified; Z79.82 Long term (current) use of aspirin; Z87.01 Personal history of pneumonia (recurrent); Z82.49 Family history of ischemic heart disease and other diseases of the circulatory system; Z84.1 Family history of disorders of kidney and ureter

== ENCOUNTER 2016-11-30 04:08 | Inpatient (IN) | payer OTHER ==
[~2016-11-30] VITALS: Ht 154.9 cm; Wt 59.6 kg
[~2016-11-30 04:08] MED LIST changes: +PLV75 PO
[2016-11-30] MEDS ORDERED: FENTANYL CITRATE INJ 50 MCG/1 ML 2 ML VIAL IV STA (04:33)
--- NOTE | 2016-11-30 05:00 | EMERGENCY ROOM VISIT NOTE ---
History Report prepared by Diana: Jessica Randolph Under the Supervision of: Dr. Kami Ramirez D.O. First contact with patient: 04:10 Chief Complaint: FALL Stated Complaint: FALL History of Present Illness The patient is an 81 year old female who presents to the Emergency Room from the [facility] with complaints of persistent left sided head pain secondary to a fall occurring a few minutes prior to arrival. The patient went to the bathroom when she slipped on the rug and fell. She crawled to the bed and rang her reyez for the staff. She reports bumping into furniture on her way to the bed. She denies hitting her head when she initially fell down. She currently complains of left sided head pain radiating down into the neck and left shoulder. She has worsening pain with palpation. The patient denies loss of consciousness, chest pain, abdominal pain, upper/lower extremity pain, or any other complaints. She does not wear oxygen at home. Source of History: patient Onset: a few minutes prior to arrival Position: head (left) Timing: other (persistent) Modifying Factors (Worsening): other (palpation) Associated Symptoms: No LOC, No chest pain, No abdominal pain Review of Systems See HPI for pertinent positives & negatives. A total of 10 systems reviewed and were otherwise negative. Past Medical & Surgical Medical Problems: (1) Asthma, Unspecified (2) C2 cervical fracture (3) Depressive Disorder Nec (4) Diab Leticia Wo Compl, Type Ii Or Unspec Type, Not Uncntrld (5) Esophageal Reflux (6) Hyperlipidemia Nec/Nos (7) Hypertension Nos (8) Parkinson disease (9) Pneumonia (10) Slurring of speech Family History Gallbladder disease Heart disease Hypertension Kidney disease Kidney stones Social History Smoking Status: Never Smoker Alcohol Use: none Drug Use: none Marital Status: Housing Status: lives with family Occupation Status: retired Current/Historical Medications Scheduled Carbidopa/Levodopa (Sinemet 25MG/100MG), 2 TABS PO QID Clopidogrel Bisulfate (Clopidogrel), 75 MG PO QAM Ferrous Sulfate (Ferrous Sulfate), 325 MG PO BIDM Fluticasone Prop/Salmeterol (Advair Diskus 250/50 60 Dose), 1 PUFF INH BID Melatonin (Melatonin), 3 MG PO HS Metoprolol Tartrate (Lopressor) (Lopressor), 12.5 MG PO BID Montelukast Sodium (Singulair), 10 MG PO HS Pantoprazole (Protonix), 40 MG PO DAILY Ropinirole HCl (Ropinirole HCl), 1 MG PO HS Sennosides-Docusate Sodium (Senna S), 1 TAB PO DAILY @ NOON Venlafaxine Hcl (Effexor Extended Rel), 75 MG PO DAILY@1200 Scheduled PRN Acetaminophen (Tylenol), 500 MG PO Q4 PRN for MILD PAIN/FEVER>101 Albuterol Hfa (Ventolin Hfa), 2 PUFFS INH Q6H PRN for BREATHING/ASTHMA Hydroxyzine HCl (Hydroxyzine HCl), 10 MG PO HS PRN for ITCHING/ANXIETY Ranitidine Hcl (Zantac), 75 MG PO DAILY PRN for Heartburn Triamcinolone Acet (Aristocort 0.1%), 1 APPLN TOP BID PRN for RASH Allergies Coded Allergies: Diphenhydramine (Verified Allergy, Severe, SWELLING IN THROAT, 11/30/16) Iodine (Verified Allergy, Severe, THROAT SWELLING, 11/30/16) Shellfish (Verified Allergy, Severe, ANAPHYLAXIS AND FULL BODY HIVES, 11/30) Ciprofloxacin (Verified Allergy, Intermediate, HIVES FULL BODY, 11/30/16) Latex1 -Allergic Contact Dermititis (Verified Allergy, Intermediate, DERMATITIS, 11/30/16) Quinine (Verified Allergy, Intermediate, HIVES, 11/30/16) Triprolidine (Verified Allergy, Intermediate, HIVES, ASTHMA EXACERBATION, 11/30/16) Physical Exam Vital Signs Date Time Temp Pulse Resp B/P (MAP) Pulse Ox O2 Delivery O2 Flow Rate FiO2 11/30/16 08:05 100 16 169/103 95 Room Air 11/30/16 07:05 97 Room Air 11/30/16 06:30 184/99 11/30/16 06:29 96 18 97 11/30/16 06:15 186/92 11/30/16 06:14 93 16 93 11/30/16 06:04 92 18 177/93 97 Room Air 11/30/16 06:00 177/93 11/30/16 05:59 91 20 95 11/30/16 05:52 181/103 11/30/16 05:45 177/113 11/30/16 05:44 90 17 95 11/30/16 05:30 192/102 11/30/16 05:29 92 16 96 11/30/16 05:24 190/104 11/30/16 05:23 94 17 98 11/30/16 05:08 90 17 90 11/30/16 04:53 90 17 95 11/30/16 04:42 184/99 11/30/16 04:38 95 23 95 11/30/16 04:31 193/92 11/30/16 04:26 93 11/30/16 04:25 36.8 96 21 171/107 96 Room Air 11/30/16 04:23 94 17 11/30/16 04:22 171/107 Physical Exam HEENT: Head - normocephalic. Septal hematoma of the left occiput. Pupils are equal, round, and reactive to light. Extraocular eye muscles are intact and sclera are anicteric. Nose - moist nasal mucosa without evidence of trauma or discharge. Mouth - moist buccal mucosa with no trauma to the teeth or signs of malocclusion. Neck: The neck is supple. No obvious step-offs or deformities. There is no JVD or tracheal deviation. Pain to palpation of the cervical spine. Chest: There are no signs of deformities, contusions or abrasions to the chest wall. There is no obvious crepitus or paradoxical chest rise. Heart: Regular, rate, and rhythm. There is a normal S1 and S2 with no murmurs, clicks, or gallops appreciated. Lungs: Clear to auscultation bilaterally with no wheezes, rales, or rhonchi. Abdomen: Soft, completely nontender, nondistended, with good bowel sounds. There is no sign of trauma such as contusions, abrasions or penetrations. There are no palpable pulsatile masses or hepatosplenomegaly. There is no guarding, rigidity, or rebound noted. Pelvis: Stable to rock and compression. Extremities: No obvious trauma, deformities, contusions, or edema. There are easily palpable peripheral pulses. Neuro: The patient is awake and alert and easily able to follow commands. Muscle strength is 5 out of 5 in all 4 extremities. Good sensation in both arms. Otherwise, neuro exam is unremarkable. GCS: 15. Back: The entire thoracic, lumbar, and sacral spine were palpated. There are no obvious step-offs or deformities noted. There are no obvious signs of trauma such as contusions abrasions penetrations noted to the back. Medical Decision & Procedures ER Provider Diagnostic Interpretation: CT results as stated below per my review and radiologist interpretation: CT HEAD Comparison: 09/08/2016 No evidence of acute infarct, hemorrhage, mass, or edema. Chronic small vessel ischemic disease and senescent changes. No acute calvarial abnormality. Minimal mucosal thickening in the paranasal sinuses. Radiologist: Jhony Moore MD CT C SPINE Comparison: 09/07/2016 Acute non-displaced type II dens fracture. Multilevel degenerative changes of the cervical spine. Straightening of the normal cervical lordosis, likely positional. Radiologist: Jhony Moore MD Laboratory Results 11/30/16 04:00 Test 11/30/16 04:00 11/30/16 05:00 Red Blood Count 4.10 M/uL (4.2-5.4) Mean Corpuscular Volume 94.4 fL (80-100) Mean Corpuscular Hemoglobin 33.2 pg (25-34) Mean Corpuscular Hemoglobin Concent 35.1 g/dl (32-36) RDW Standard Deviation 45.0 fL (36.4-46.3) RDW Coefficient of Variation 13.0 % (11.5-14.5) Mean Platelet Volume 8.8 fL (7.4-10.4) Total Bilirubin 0.4 mg/dl (0.2-1) Aspartate Amino Transf (AST/SGOT) 15 U/L (15-37) Alanine Aminotransferase (ALT/SGPT) 16 U/L (12-78) Alkaline Phosphatase 154 U/L (45-117) Total Protein 7.2 gm/dl (6.4-8.2) Albumin 3.8 gm/dl (3.4-5.0) Globulin 3.4 gm/dl (2.5-4.0) Albumin/Globulin Ratio 1.1 (0.9-2) Urine Color YELLOW Urine Appearance CLEAR (CLEAR) Urine pH 7.0 (4.5-7.5) Urine Specific [place] 1.011 (1.000-1.030) Urine Protein NEG (NEG) Urine Glucose (UA) NEG (NEG) Urine Ketones NEG (NEG) Urine Occult Blood NEG (NEG) Urine Nitrite NEG (NEG) Urine Bilirubin NEG (NEG) Urine Urobilinogen NEG (NEG) Urine Leukocyte Esterase NEG (NEG) Laboratory results per my review. Medications Administered Medications (Trade) Dose Ordered Sig/Joceline Route Start Time Stop Time Status Last Admin Dose Admin Fentanyl Citrate (Fentanyl Inj) 50 mcg NOW STAT IV 11/30/16 04:33 11/30/16 04:36 DC 11/30/16 05:05 50 MCG Acetaminophen (Tylenol Tab) 650 mg Q4H PRN PO 11/30/16 08:00 11/30/16 20:12 DC 11/30/16 11:22 650 MG Hydroxyzine HCl (Vistaril Tab) 10 mg HS PRN PO 11/30/16 08:00 12/30/16 07:59 11/30/16 21:08 10 MG Procedure Fentanyl Inj 50 mcg IV ED Course 0410: Past medical records reviewed. The patient was evaluated in room B07. A complete history and physical exam was performed. Laboratory studies were drawn as above. 0433: Fentanyl Inj 50 mcg IV. She went for CT scan of her brain and cervical spine as described above. 0541: I reevaluated the patient who is much more comfortable after the pain medications. I reevaluated the patient's neuro exam and it was unremarkable A [place] J collar was placed 0617: I discussed the patient's case with Dr. Talley, orthopedic surgeon with [facility]. He recommended admission to internal medicine with consultation to spinal surgery 0618: I discussed the patient's case with her daughter by phone. 0629: I reevaluated the patient who is resting comfortably. She is currently in a [place] J collar. I repeated a full neuro exam on the patient. 0704: I discussed the patient's case with Dr. Guevara, from [facility] Hospitalist Service. Medical Decision The patient presents to the Emergency Room with complaints of a fall. Differential diagnosis includes but is not limited to c-spine fracture, skull fracture, closed head injury, anemia, dehydration. Her labs showed normal white count, stable H&H, normal renal function, glucose 121, normal LFTs, negative urinalysis. I attest that I have personally reviewed the patient's current medication list. Patient was found to have an elevated blood pressure and was referred to their primary doctor for recheck and further treatment. This is an 81-year-old female patient who slipped and fell this morning and presents to the emergency department complaining of neck pain. CT scan of the cervical spine shows a fracture of the dens. The patient was placed into rigid collar and I discussed it with spinal surgery. [facility] She remains neurologically intact. Her pain is well controlled with IV fentanyl. Consults Time Called: 05 Consulting Physician: Dr. Talley, orthopedic surgeon with [facility] Returned Call: 06 I discussed the patient's case with Dr. Talley, orthopedic surgeon with [facility]. He recommended admission to internal medicine. Additional Consults: Time Called: 624 Consult[facility] Phys[facility] Returned Call: 07 Additional Comments: I discussed the patient's case with Dr. Guevara, from [facility] Service. Impression Primary Impression: Dens fracture Scribe Attestation The scribe's documentation has been prepared under my direction and personally reviewed by me in its entirety. I confirm that the note above accurately reflects all work, treatment, procedures, and medical decision making performed by me. Departure Information Dispostion Being Evaluated By Hospitalist Referrals Artemio Cleary M.D. (PCP) Patient Instructions My [facility]
[2016-11-30] MEDS ORDERED: METO25TA56 PO (05:03)
[2016-11-30] MEDS ORDERED: SENN-91 PO (05:04)
[2016-11-30] MEDS ORDERED: ADVIN25/60 INH (05:05)
[2016-11-30] MEDS ORDERED: CARB25TA12 PO (05:08)
[2016-11-30] MEDS ORDERED: RANITAB33 PO (05:09)
[2016-11-30 05:20] LABS: HEMATOCRIT 38.7 % (37-47); MEAN CELL VOLUME 94.4 fL (80-100); MEAN CORPUSCULAR HEMOGLOBIN 33.2 pg (25-34); MEAN CORPUSCULAR HGB CONC 35.1 g/dl (32-36); MEAN PLATELET VOLUME 8.8 fL (7.4-10.4); PLATELET COUNT 294 K/uL (130-400); WHITE BLOOD COUNT 8.94 K/uL (4.8-10.8)
[2016-11-30 05:24] LABS: URINE APPEARANCE CLEAR (CLEAR); URINE BILIRUBIN NEG (NEG); URINE COLOR YELLOW; URINE NITRITE NEG (NEG); URINE SPECIFIC GRAVITY 1.011 (1.000-1.030); UROBILINOGEN NEG (NEG)
[2016-11-30 05:33] LABS: MANUAL MICROSCOPIC REQUIRED? NO; REVIEW REQ? NO
[2016-11-30 05:39] LABS: BUN/CREATININE RATIO 21.3 (10-20); CREATININE 0.81 mg/dl (0.60-1.20); POTASSIUM 3.9 mmol/L (3.5-5.1)
[2016-11-30 05:42] LABS: ALB/GLOB RATIO 1.1 (0.9-2)
[2016-11-30 07:05] VITALS: O2SAT 97; Ht 154.9 cm; Wt 59.6 kg
--- NOTE | 2016-11-30 07:07 | DIAGNOSTIC IMAGING REPORT ---
HEAD CT NONCONTRAST CT DOSE: HISTORY: Trauma eval for trauma TECHNIQUE: Multiaxial CT images of the head were performed without the use of intravenous contrast. Comparison: None. Findings: The paranasal sinuses and mastoid air cells are clear. The calvarium and skull base are intact. The ventricles and sulci are within normal limits. There is no mass, hematoma, midline shift, or acute infarct. Age-related chronic small vessel change Impression: No acute intracranial abnormality. Age-related chronic small vessel small vessel change and atrophy. Electronically signed by: Terry Chavis M.D. 11/30/2016 7:06 AM Dictated Date/Time: 11/30/2016 7:03 AM
--- NOTE | 2016-11-30 07:12 | DIAGNOSTIC IMAGING REPORT ---
CT SCAN OF THE CERVICAL SPINE CLINICAL HISTORY: Trauma. Fall. COMPARISON STUDY: CT scan of the cervical spine dated 09/07/2016. TECHNIQUE: CT scan of the cervical spine is performed from the skull base to the upper thoracic spine. Images are reviewed in the axial, sagittal, and coronal planes. IV contrast was not administered for this examination. CT DOSE: 949.62 mGy.cm FINDINGS: Skeletal structures: The skeletal structures are osteopenic. There is a nondistracted fracture through the base of the odontoid process (type II), best seen on coronal image #18. Cystic degenerative changes present in the dens. No additional fracture is identified. Vertebral body height is maintained at the cervical spine. There is a mild acute superior endplate compression deformity of T3. This is new from 09/07/2016. There is minimal anterolisthesis at C3-C4 and C7-T1. Alignment is otherwise preserved. The lateral masses are intact. The atlantoaxial articulation is preserved noting advanced productive degenerative change with bony sclerosis, overgrowth, narrowing of the interval.. The spinous processes appear intact. Anterior osteophytes are seen throughout. There is advanced multilevel cervical spondylosis. Uncovertebral and facet arthropathy contribute sterile foraminal narrowing at most levels. Intervertebral discs: There is advanced degenerative disc space narrowing at all cervical levels with exception of C2-C3. Central canal: Posterior disc osteophyte complexes from C3 to C4 through C7-T1 likely contribute to multilevel acquired compromise of the central canal. Soft tissues: The prevertebral and paraspinous soft tissues are within normal limits. There is atherosclerotic calcification of the carotid bulbs. Calvarium: The visualized calvarium at the skull base appears intact. Brain parenchyma: Partially visualized brain parenchyma the skull base is within normal limits noting age-related involutional change. Sinuses and mastoids: The visualized paranasal sinuses are clear. The mastoid air cells are well pneumatized. Lung apices: Clear as visualized. IMPRESSION: 1. There is an acute and nondistracted fracture through the base of the odontoid process (type II). 2. There is a mild acute superior endplate compression fracture of T3. 3. No additional fracture is seen. 4. Osteopenia and advanced multilevel cervical spondylosis as above. Electronically signed by: Abebe Vyas M.D. 11/30/2016 7:11 AM Dictated Date/Time: 11/30/2016 7:03 AM
[2016-11-30] MEDS ORDERED: ALBUTEROL HFA 8 GM INHALER INH PRN (08:00)
[2016-11-30] MEDS ORDERED: hydrOXYzine HCL 10 MG TAB PO PRN (08:00)
[2016-11-30] MEDS ORDERED: ONDANSETRON INJ 2 MG/ML 2 ML VIAL IV PRN (08:00)
[2016-11-30] MEDS ORDERED: ALUMINUM/MAGNESIUM/SIMETH (MAALOX MAX) 30 ML UDC PO PRN (08:00)
[2016-11-30] MEDS ORDERED: ACETAMINOPHEN 325 MG TAB PO PRN (08:00)
[2016-11-30] MEDS ORDERED: MAGNESIUM HYDROXIDE SUSP 30 ML UDC PO PRN (08:00)
[2016-11-30] MEDS ORDERED: ACETAMINOPHEN IV 100 ML IV PRN (08:15)
[2016-11-30] MEDS ORDERED: HydrALAZINE HCL 20 MG/ML VIAL IV. PRN (08:30)
--- NOTE | 2016-11-30 08:33 | History and Physical ---
History & Physical Date & Time of Service: Nov 30, 2016 at 08:26 Chief Complaint: FALL Primary Care Physician: Artemio Cleary M.D. History of Present Illness Source: patient Ms. 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 Patient is a resident of the [facility]. She reports walking to the bathroom and slipping on the rug. She denies precipitating events such as CP, SOB, dizziness/ lightheadedness. She reports having MS and says this has been worsening. However , cannot find documentation of MS and follows with Dr. Loyd for Parkinson's. She denies hitting her head and LOC. She had to crawl to her bed to ring for assistance. She states "my legs just do not work as well as they used to". She reports L sided headache, neck pain, and L shoulder pain. These symptoms are improving at this time but movement of L arm exacerbates symptoms. She is anxious and kept saying she was disappointed in herself because of this. Previous admission revealed that she has multiple unresponsive episodes with extensive neurological work-up that was largely negative. Question possible visual disturbances, orthostasis, and TIA?. In the ED, patient is hypertensive but fluctuating and mildly tachycardic. Generalized weakness but no focal neurological deficits appreciated. Mild cogwheeling of upper extremities. CT Head was negative for acute infarct. CT C- spine with non-displaced type II dens fracture. She will be admitted to Med/ Surg for further evaluation and care. Past Medical/Surgical History Medical Problems: (1) Asthma, Unspecified Status: Chronic (2) Depressive Disorder Nec Status: Chronic (3) Diab Leticia Wo Compl, Type Ii Or Unspec Type, Not Uncntrld Status: Chronic (4) Esophageal Reflux Status: Chronic (5) Hyperlipidemia Nec/Nos Status: Chronic (6) Hypertension Nos Status: Chronic (7) Parkinson disease Status: Chronic Family History Gallbladder disease Heart disease Hypertension Kidney disease Kidney stones Social History Smoking Status: Never Smoker Smokeless Tobacco Use: No Alcohol Use: none Drug Use: none Marital Status: Housing status: custodial Occupational Status: retired Multi-Drug Resistant Organisms History of MDRO: No Allergies Coded Allergies: Diphenhydramine (Verified Allergy, Severe, SWELLING IN THROAT, 11/30/16) Iodine (Verified Allergy, Severe, THROAT SWELLING, 11/30/16) Shellfish (Verified Allergy, Severe, ANAPHYLAXIS AND FULL BODY HIVES, 11/30) Ciprofloxacin (Verified Allergy, Intermediate, HIVES FULL BODY, 11/30/16) Latex1 -Allergic Contact Dermititis (Verified Allergy, Intermediate, DERMATITIS, 11/30/16) Quinine (Verified Allergy, Intermediate, HIVES, 11/30/16) Triprolidine (Verified Allergy, Intermediate, HIVES, ASTHMA EXACERBATION, 11/30/16) Home Medications Scheduled Carbidopa/Levodopa (Sinemet 25MG/100MG), 2 TABS PO QID Clopidogrel Bisulfate (Clopidogrel), 75 MG PO QAM Ferrous Sulfate (Ferrous Sulfate), 325 MG PO BIDM Fluticasone Prop/Salmeterol (Advair Diskus 250/50 60 Dose), 1 PUFF INH BID Melatonin (Melatonin), 3 MG PO HS Metoprolol Tartrate (Lopressor) (Lopressor), 12.5 MG PO BID Montelukast Sodium (Singulair), 10 MG PO HS Pantoprazole (Protonix), 40 MG PO DAILY Ropinirole HCl (Ropinirole HCl), 1 MG PO HS Sennosides-Docusate Sodium (Senna S), 1 TAB PO DAILY @ NOON Venlafaxine Hcl (Effexor Extended Rel), 75 MG PO DAILY@1200 Scheduled PRN Acetaminophen (Tylenol), 500 MG PO Q4 PRN for MILD PAIN/FEVER>101 Albuterol Hfa (Ventolin Hfa), 2 PUFFS INH Q6H PRN for BREATHING/ASTHMA Hydroxyzine HCl (Hydroxyzine HCl), 10 MG PO HS PRN for ITCHING/ANXIETY Ranitidine Hcl (Zantac), 75 MG PO DAILY PRN for Heartburn Triamcinolone Acet (Aristocort 0.1%), 1 APPLN TOP BID PRN for RASH Review of Systems Constitutional: + problem reported (L sided headache), No fever, No chills Eyes: + problem reported (H/O macular degeneration and transient hallucinations (no current visual hallucinations)), No worsening of vision ENT: No nasal symptoms, No sore throat, No trouble swallowing Respiratory: No cough, No wheezing, No shortness of breath Cardiovascular: No chest pain, No palpitations Abdomen: No pain, No nausea, No vomiting, No diarrhea, No constipation Musculoskeletal: + problem reported (H/O Parkinson's; Restless leg ), No swelling, No calf pain Genitourinary - Female: No dysuria Neurologic: No numbness/tingling, No vertigo Psychiatric: + anxiety Integumentary: No rash Physical Exam Vital Signs Date Time Temp Pulse Resp B/P (MAP) Pulse Ox O2 Delivery O2 Flow Rate FiO2 11/30/16 08:20 105 11/30/16 08:05 100 16 169/103 95 Room Air 11/30/16 07:05 97 Room Air 11/30/16 06:30 184/99 11/30/16 06:29 96 18 97 11/30/16 06:15 186/92 11/30/16 06:14 93 16 93 11/30/16 06:04 92 18 177/93 97 Room Air 11/30/16 06:00 177/93 11/30/16 05:59 91 20 95 11/30/16 05:52 181/103 11/30/16 05:45 177/113 11/30/16 05:44 90 17 95 11/30/16 05:30 192/102 11/30/16 05:29 92 16 96 11/30/16 05:24 190/104 11/30/16 05:23 94 17 98 11/30/16 05:08 90 17 90 11/30/16 04:53 90 17 95 11/30/16 04:42 184/99 11/30/16 04:38 95 23 95 11/30/16 04:31 193/92 11/30/16 04:26 93 11/30/16 04:25 36.8 96 21 171/107 96 Room Air 11/30/16 04:23 94 17 11/30/16 04:22 171/107 General Appearance: WD/WN, + mild distress (anxious and verbalizes anxiety and well as feeling disappointed in herself for this happening) Head: normocephalic, atraumatic Eyes: PERRL, EOMI, sclerae normal ENT: pharynx normal Neck: + pertinent finding (C-Collar in place) Respiratory/Chest: lungs clear, normal breath sounds, no respiratory distress, no accessory muscle use Cardiovascular: regular rate, rhythm, no gallop, no murmur Abdomen/GI: normal bowel sounds, non tender, soft Extremities/Musculoskelatal: no calf tenderness, no pedal edema Neurologic/Psych: alert, oriented x 3, + pertinent finding (mild cogwheeling of upper extremities bilat; strong quill machine tender strength but bilateral decreased strength of arms to flexion/extension; good cap refill bilat; pulses 2+) Skin: normal color, warm/dry Diagnostics Laboratory Results Results Past 24 Hours Test 11/30/16 04:00 11/30/16 05:00 Range/Units White Blood Count 8.94 4.8-10.8 K/uL Red Blood Count 4.10 4.2-5.4 M/uL Hemoglobin 13.6 12.0-16.0 g/dL Hematocrit 38.7 37-47 % Mean Corpuscular Volume 94.4 80-100 fL Mean Corpuscular Hemoglobin 33.2 25-34 pg Mean Corpuscular Hemoglobin Concent 35.1 32-36 g/dl RDW Standard Deviation 45.0 36.4-46.3 fL RDW Coefficient of Variation 13.0 11.5-14.5 % Platelet Count 294 130-400 K/uL Mean Platelet Volume 8.8 7.4-10.4 fL Sodium Level 135 136-145 mmol/L Potassium Level 3.9 3.5-5.1 mmol/L Chloride Level 101 98-107 mmol/L Carbon Dioxide Level 28 21-32 mmol/L Anion Gap 6.0 3-11 mmol/L Blood Urea Nitrogen 17 7-18 mg/dl Creatinine 0.81 0.60-1.20 mg/dl Est Creatinine Clear Calc Drug Dose 45.1 ml/min Estimated GFR () 78.9 Estimated GFR (Non- 68.1 BUN/Creatinine Ratio 21.3 10-20 Random Glucose 121 70-99 mg/dl Calcium Level 9.0 8.5-10.1 mg/dl Total Bilirubin 0.4 0.2-1 mg/dl Aspartate Amino Transf (AST/SGOT) 15 15-37 U/L Alanine Aminotransferase (ALT/SGPT) 16 12-78 U/L Alkaline Phosphatase 154 45-117 U/L Total Protein 7.2 6.4-8.2 gm/dl Albumin 3.8 3.4-5.0 gm/dl Globulin 3.4 2.5-4.0 gm/dl Albumin/Globulin Ratio 1.1 0.9-2 Urine Color YELLOW Urine Appearance CLEAR CLEAR Urine pH 7.0 4.5-7.5 Urine Specific [place] 1.011 1.000-1.030 Urine Protein NEG NEG Urine Glucose (UA) NEG NEG Urine Ketones NEG NEG Urine Occult Blood NEG NEG Urine Nitrite NEG NEG Urine Bilirubin NEG NEG Urine Urobilinogen NEG NEG Urine Leukocyte Esterase NEG NEG Diagnostic Radiology HEAD CT NONCONTRAST Findings: The paranasal sinuses and mastoid air cells are clear. The calvarium and skull base are intact. The ventricles and sulci are within normal limits. There is no mass, hematoma, midline shift, or acute infarct. Age-related chronic small vessel change Impression: No acute intracranial abnormality. Age-related chronic small vessel small vessel change and atrophy. CT SCAN OF THE CERVICAL SPINE FINDINGS: Skeletal structures: The skeletal structures are osteopenic. There is a nondistracted fracture through the base of the odontoid process (type II), best seen on coronal image #18. Cystic degenerative changes present in the dens. No additional fracture is identified. Vertebral body height is maintained at the cervical spine. There is a mild acute superior endplate compression deformity of T3. This is new from 09/07/2016. There is minimal anterolisthesis at C3-C4 and C7-T1. Alignment is otherwise preserved. The lateral masses are intact. The atlantoaxial articulation is preserved noting advanced productive degenerative change with bony sclerosis, overgrowth, narrowing of the interval.. The spinous processes appear intact. Anterior osteophytes are seen throughout. There is advanced multilevel cervical spondylosis. Uncovertebral and facet arthropathy contribute sterile foraminal narrowing at most levels. Intervertebral discs: There is advanced degenerative disc space narrowing at all cervical levels with exception of C2-C3. Central canal: Posterior disc osteophyte complexes from C3 to C4 through C7-T1 likely contribute to multilevel acquired compromise of the central canal. Soft tissues: The prevertebral and paraspinous soft tissues are within normal limits. There is atherosclerotic calcification of the carotid bulbs. Calvarium: The visualized calvarium at the skull base appears intact. Brain parenchyma: Partially visualized brain parenchyma the skull base is within normal limits noting age-related involutional change. Sinuses and mastoids: The visualized paranasal sinuses are clear. The mastoid air cells are well pneumatized. Lung apices: Clear as visualized. IMPRESSION: 1. There is an acute and nondistracted fracture through the base of the odontoid process (type II). 2. There is a mild acute superior endplate compression fracture of T3. 3. No additional fracture is seen. 4. Osteopenia and advanced multilevel cervical spondylosis as above. Impression Assessment and Plan Ms. 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 C2 Non-Displaced Dens Fx: - Continue C-Collar - Tylenol 1000 mg IV Q8H and Tramadol PRN -- Will monitor for effectiveness and reduce risk for delirium with stronger pain control -- Did receive Fentanyl in ED and was having increased anxiety - not sure if thats situational vs adverse effect/delirium - Consult orthopedics - Dr. Severino - appreciate recommendations - anticipating C-collar and conservative management? Parkinson's Disease and Restless Legs: - Sinemet 2 tabs QID and Requip 1 mg HS HTN: - Reports she normally has low BPs - outpatient records reveal orthostasis - reports that her BPs have been monitored at the [facility] as they have been running higher - Hydralazine 10 mg Q6H PRN - Lopressor 12.5 mg BID TIA Events?: - Plavix 75 mg daily Chronic Anemia: STABLE - H/O AVMs possible intermittent bleeding per [employer] - Ferrous Sulfate 325 mg BID GERD: - Protonix 40 mg daily T2DM: Diet Managed - Will monitor ACHS for now - will place SSI with liberalized coverage if necessary -- Can D/C this if glucose controlled Asthma without Exacerbation: - Ventolin Q6H PRN - Singulair 10 mg daily 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 Y/N: Yes Risk Level: Moderate Given or contraindicated: Zo Stockings, SCD's Note Attending Attestation & Admission Note: Pt seen/examined, chart reviewed, and care plan d/w ANJANA Becker. I agree w/ the juan components of her admission documentation. 81yo female, resident of the [facility], with parkinson's disease, diet-controlled T2DM, and h/o RLS - presenting after an accidental fall. Found to have C2 fracture. During my visit the patient was resting in bed with [place] J collar in place. She asked for lovell to be removed and c/o left sided headache. Denied motor weakness of arms. PMH, PSH, allergies, meds, sochx, famhx, ros - reviewed VSS no fever gen - mild distress due to pain neck - in [place] J collar heart - RRR but borderline tachycardic, s1, s2 lungs - CTA b/l abd - soft ext - no edema neuro - strength 5/5 x 4 exts A/P: 1. C2 Fracture due to fall - nonoperative Rx with [place] J collar; ortho consult appreciated. 2. Pain control - schedule tylenol 1gm TID. Tramadol prn. Toradol x 1 dose. Oxycodone 2.5mg q8h prn if tramadol is not effective. 3. ambulatory dysfunction - PT, OT consults. 4. h/o iron def anemia - recheck ferritin in am. Mark Cruz MD
[2016-11-30] MEDS ORDERED: POLYETHYLENE (MIRALAX) 17 GM PACK PO PRN (09:00)
[2016-11-30] MEDS ORDERED: PNEUMOCOCCAL ADMINISTRATION CHARGE ONE (09:00)
[2016-11-30] MEDS ORDERED: PNEUMOCOCCAL POLYSACCHARIDES 25 MCG/0.5 ML VIAL/SYR IM. ONE (09:00)
[2016-11-30 09:30] VITALS: BP 157/89; PULSE 101; TEMP 36.7; O2SAT 95
[2016-11-30] MEDS: DOCUSATE SODIUM/SENNA 50/8.6MG TAB PO SCH (11:23)
[2016-11-30] MEDS: PANTOprazole SOD 40 MG TAB PO SCH (11:24)
[2016-11-30] MEDS: CARBIDOPA/LEVODOPA 25/100MG TAB PO SCH ×3 (11:24→21:07)
[2016-11-30] MEDS: VENLAFAXINE HCL XR 75 MG CAPXR PO SCH (11:25)
[2016-11-30] MEDS: METOPROLOL TARTRATE 25 MG TAB PO SCH ×2 (11:25→21:06)
[2016-11-30] MEDS: FLUTICASONE/SALMETEROL 250/50 (ADVAIR) 14 PUFF/1 INHALER INH SCH ×2 (11:25→20:55)
[2016-11-30 11:55] VITALS: BP 148/92
[2016-11-30] MEDS ORDERED: GLUCAGON FOR INJ 1 MG VIAL SQ PRN (12:45)
[2016-11-30] MEDS ORDERED: GLUCOSE 40% GEL 15 GM TUBE PO PRN (12:45)
[2016-11-30] MEDS ORDERED: GLUCOSE 10 TABS/TUBE PO PRN (12:45)
[2016-11-30] MEDS ORDERED: DEXTROSE 50% 50 ML SYR IV PRN (12:45)
[2016-11-30] MEDS: TRAMADOL HCL 50 MG TAB PO PRN ×2 (14:14→20:05)
[2016-11-30] MEDS ORDERED: NURSING VERBAL MED ORDER ONE (14:30)
[2016-11-30 14:54] VITALS: BP 131/80; PULSE 102; TEMP 36.8; O2SAT 95
[2016-11-30] MEDS: INSULIN ASPART 100 UNITS/ML 3 ML PEN SC SCH ×2 (17:15→21:00)
--- NOTE | 2016-11-30 17:47 | CONSULTATION REPORT ---
DATE OF CONSULTATION: 11/30/2016 HISTORY OF PRESENT ILLNESS: This is a very pleasant 81-year-old female who presented to the Emergency Room early this morning. She is a resident of the [facility]. She was getting up around 11:00 p.m. when she tripped on her way to the restroom and fell hitting her head on a piece of furniture. She is unsure if she lost consciousness. She currently has pain radiating from her posterior cervical region to the base of her occiput. She denies upper or lower extremity pain or weakness. She states she was able to get up herself after the fall. She does have a history of Parkinson. She normally does ambulate with a walker at the [facility]. Denies bowel or bladder changes. PAST MEDICAL HISTORY: Significant for depression, GERD, diabetes, hyperlipidemia, hypertension, Parkinson, asthma. ALLERGIES: DIPHENHYDRAMINE, IODINE, SHELLFISH, CIPROFLOXACIN, LATEX, QUININE, TRIPROLIDINE. MEDICATIONS: AT HOME INCLUDE SINEMET, PLAVIX, IRON, ADVAIR, MELATONIN, LOPRESSOR, SINGULAIR, PROTONIX, ROPINIROLE, SENNA-S, VENLAFAXINE, TYLENOL, VENTOLIN, HYDROXYZINE, ZANTAC, ARISTOCORT. SOCIAL HISTORY: Again she is a resident at the [facility]. She is . She is retired. Denies alcohol. Denies tobacco use. FAMILY HISTORY: Noncontributory. REVIEW OF SYSTEMS: Significant for headache and neck pain. PHYSICAL EXAMINATION: GENERAL: eXAM limited to the musculoskeletal system. She is seen in room 361, bed 1. Her daughter is in the room at the time of evaluation. She is alert and oriented x3. She answers questions appropriately. NECK: [place] J collar is intact. EXTREMITIES: Her lower extremity, she is neurovascularly intact. No evidence of ankle clonus. Strength is intact bilateral upper extremities as well. Negative Adrián sign. IMAGING: I have a CT scan of the cervical spine dated 11/30/2016. This demonstrates a nondisplaced type 2 odontoid fracture. There is also evidence of mild acute superior endplate compression fracture at T3. ASSESSMENT: Type 2 odontoid fracture, nondisplaced, status post fall. PLAN: At this point in time, patient has been reviewed with Dr. Gee. We will try and treat this in a conservative manner including rigid [place] J collar 24/7. Also pain control. She is to ambulate as tolerated. Very light limited lifting. She will follow up in the office in 2 weeks. Any further questions, please do not hesitate to contact our office. MOUSTAPHA
[2016-11-30] MEDS: FERROUS SULFATE 325 MG TAB PO SCH (19:06)
[2016-11-30] MEDS ORDERED: KETOROLAC TROMETHAMINE 15 MG/ML VIAL IV. STA (20:09)
[2016-11-30] MEDS ORDERED: OXYCODONE HCL IR 5 MG TAB (IMMEDIATE RELEASE) PO PRN (20:15)
[2016-11-30 21:02] VITALS: BP 166/91; PULSE 101
[2016-11-30] MEDS: ROPINIROLE HCL 1 MG TAB PO SCH (21:07)
[2016-11-30] MEDS: MONTELUKAST SOD 10 MG TAB PO SCH (21:07)
[2016-11-30] MEDS: ACETAMINOPHEN 500 MG TAB PO SCH (21:20)
[2016-11-30 22:59] VITALS: BP 110/69; PULSE 94; TEMP 37; O2SAT 95
[2016-12-01] MEDS ORDERED: NURSING VERBAL MED ORDER ONE (05:15)
[2016-12-01] MEDS ORDERED: SODIUM CHLORIDE 0.9% 500ML 500 ML IV ONE (05:15)
[2016-12-01] MEDS: ACETAMINOPHEN 500 MG TAB PO SCH ×3 (05:23→22:03)
[2016-12-01 07:28] LABS: BUN/CREATININE RATIO 19.4 (10-20); CALCIUM 8.5 mg/dl (8.5-10.1); CREATININE 1.2 mg/dl (0.60-1.20); POTASSIUM 4.3 mmol/L (3.5-5.1)
[2016-12-01 07:29] VITALS: BP 150/82; PULSE 96; TEMP 36.7; O2SAT 95
[2016-12-01 07:34] VITALS: O2SAT 95
--- NOTE | 2016-12-01 07:55 | Clinical Documentation Query ---
CLINICAL DOCUMENTATION QUERY Dr. ORTEGA, In your clinical opinion is this patient being managed for: (x ) mild acute superior endplate compression fracture at T3 ( ) Other explanation of clinical findings (Please Explain) ( ) Unable to determine (Please Define) ( ) Need to Discuss ( ) Not Agree The medical record reflects the following clinical findings, treatment, and risk factors. Clinical Indicators: 81 yo female presenting after a fall, sustaining a type II dens fracture. Cervical CT also indicates pt with mild acute superior endplate compression fracture at T3. Treatment: ortho consult, conservative management, pain control, limited lifting Risk Factors: fall, age, parkinson's disease Please clarify and document your clinical opinion in the progress notes and discharge summary. Terms such as "probable", "suspected", "likely", "questionable", "possible", or "still to be ruled out" are acceptable. IF IN AGREEMENT, YOU MUST DOCUMENT ABOVE DIAGNOSTIC STATEMENT IN DAILY PROGRESS NOTES AND DISCHARGE SUMMARY. This document is not part of the patient's record. Thank You, Yessica Guillory RN [phone]
[2016-12-01 08:00] VITALS: O2SAT 95
[2016-12-01] MEDS: INSULIN ASPART 100 UNITS/ML 3 ML PEN SC SCH ×4 (08:00→20:48)
[2016-12-01] MEDS: FLUTICASONE/SALMETEROL 250/50 (ADVAIR) 14 PUFF/1 INHALER INH SCH ×2 (08:09→20:46)
[2016-12-01] MEDS: FERROUS SULFATE 325 MG TAB PO SCH ×2 (08:10→17:32)
[2016-12-01] MEDS: PANTOprazole SOD 40 MG TAB PO SCH (08:10)
[2016-12-01] MEDS: METOPROLOL TARTRATE 25 MG TAB PO SCH ×2 (08:11→20:51)
[2016-12-01] MEDS: CLOPIDOGREL BISULFATE 75 MG TAB PO SCH (08:11)
[2016-12-01] MEDS: CARBIDOPA/LEVODOPA 25/100MG TAB PO SCH ×4 (08:12→20:47)
[2016-12-01] MEDS: DOCUSATE SODIUM/SENNA 50/8.6MG TAB PO SCH (08:12)
[2016-12-01] MEDS: TRAMADOL HCL 50 MG TAB PO PRN ×2 (09:17→16:10)
[2016-12-01] MEDS: VENLAFAXINE HCL XR 75 MG CAPXR PO SCH (11:11)
[2016-12-01] MEDS: CYANOCOBALAMIN 500 MCG TAB (VIT B-12) PO SCH (11:11)
[2016-12-01] MEDS: SODIUM CHLORIDE 0.9% 1000ML 1,000 ML IV SCH (12:29)
[2016-12-01 15:44] VITALS: BP 157/84; PULSE 98; TEMP 36.9; O2SAT 92
[2016-12-01] MEDS: MONTELUKAST SOD 10 MG TAB PO SCH (20:47)
[2016-12-01] MEDS: ROPINIROLE HCL 1 MG TAB PO SCH (20:47)
[2016-12-01 20:50] VITALS: BP 151/96; O2SAT 98
[2016-12-01 23:02] VITALS: BP 144/77; PULSE 98; TEMP 36.7; O2SAT 92
--- NOTE | 2016-12-02 00:22 | Progress Note ---
Subjective Date of Service: Dec 01, 2016. Subjective Pt evaluation today including: conversation w/ patient, conversation w/ family (son, daughter at bedside), physical exam, chart review, lab review, review of inpatient medication list Pain: neck, left scalp/forehead - but improved today PO Intake: poor yesterday, somewhat better today Voiding: voiding difficulty (mild) she overall feels better today had issues with urine output overnight - most of the AM felt like she couldn't void received IVF and did in fact have a void this afternoon denies weakness of arms or hands denies paresthesias no other complaints Problem List Medical Problems: (1) Altered mental status Status: Acute (2) Contusion of left hip and thigh Status: Acute (3) CVA (cerebral vascular accident) Status: Acute (4) Dens fracture Status: Acute (5) Expressive aphasia Status: Acute (6) Fall Status: Acute (7) Fall Status: Acute (8) Inability to ambulate due to left knee Status: Acute (9) Left knee sprain Status: Acute (10) TIA (transient ischemic attack) Status: Acute (11) TIA (transient ischemic attack) Status: Acute Review of Systems Constitutional: No fever Respiratory: No shortness of breath Cardiac: No chest pain Abdomen: No pain Objective Vital Signs Date Time Temp Pulse Resp B/P (MAP) Pulse Ox O2 Delivery O2 Flow Rate FiO2 12/01/16 23:02 36.7 98 18 144/77 (99) 92 Room Air 12/01/16 20:50 151/96 (114) 98 12/01/16 16:00 Room Air 12/01/16 15:44 36.9 98 16 157/84 (108) 92 Room Air 12/01/16 08:00 95 Room Air 12/01/16 07:34 95 Room Air 12/01/16 07:29 36.7 96 18 150/82 (104) 95 Room Air 12/01/16 00:15 Room Air Physical Exam General Appearance: no apparent distress ENT: pharynx normal Neck: + pertinent finding ([place] J collar in place) Respiratory/Chest: lungs clear, no respiratory distress, no accessory muscle use Cardiovascular: regular rate, rhythm, no gallop, no murmur Abdomen: normal bowel sounds, non tender, soft, no organomegaly Extremities: no pedal edema 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: no motor/sensory deficits (of arms/legs), alert, oriented x 3 Laboratory Results Last 24 Hours Test 12/01/16 06:48 12/01/16 08:02 12/01/16 11:53 12/01/16 17:23 Sodium Level 136 mmol/L Potassium Level 4.3 mmol/L Chloride Level 103 mmol/L Carbon Dioxide Level 25 mmol/L Anion Gap 8.0 mmol/L Blood Urea Nitrogen 23 mg/dl Creatinine 1.20 mg/dl Est Creatinine Clear Calc Drug Dose 30.5 ml/min Estimated GFR () 49.1 Estimated GFR (Non- 42.4 BUN/Creatinine Ratio 19.4 Random Glucose 110 mg/dl Calcium Level 8.5 mg/dl Ferritin 57.9 ng/ml Vitamin B12 Level 330 pg/mL Folate 6.91 ng/mL Bedside Glucose 99 mg/dl 90 mg/dl 100 mg/dl Test 12/01/16 20:47 Bedside Glucose 106 mg/dl Assessment and Plan 81yo female with: 1. C2 Non-Displaced Dens Fracture: - Continue Cervical Collar - Nonoperative management at this time - Pain control with scheduled tylenol 1gm TID, ultram prn, oxycodone (low-dose) prn 2. Parkinson's Disease and Restless Legs: - Sinemet 2 tabs QID and Requip 1 mg HS 3. Hypertension - controlled with lopressor 4. mild acute kidney injury - Cr 0.8, now 1.2. Restart fluids, repeat BMP in am. Likely due to volume depletion. 5. h/o TIA - on plavix for secondary prevention. 6. anemia - both b12 and folate are low-normal; replace both. 7. GERD - PPI 8. T2DM - diet controlled 9. asthma - controlled, not in exacerbation; cont singulair and prn albuterol. 10. PT, OT evals to ensure she can return to the [facility] updated at bedside hopefully d/c tomorrow Continued [facility] stay due to: inadequate oral pain control, ambulation difficulties Discharge planning: other (personal long term)
[2016-12-02] MEDS: SODIUM CHLORIDE 0.9% 1000ML 1,000 ML IV SCH (01:44)
[2016-12-02] MEDS: ACETAMINOPHEN 500 MG TAB PO SCH ×3 (05:37→21:00)
[2016-12-02 06:53] LABS: HEMATOCRIT 37.7 % (37-47); MEAN CELL VOLUME 94.7 fL (80-100); MEAN CORPUSCULAR HEMOGLOBIN 32.4 pg (25-34); MEAN CORPUSCULAR HGB CONC 34.2 g/dl (32-36); MEAN PLATELET VOLUME 8.9 fL (7.4-10.4); PLATELET COUNT 267 K/uL (130-400); RED BLOOD COUNT 3.98 M/uL (4.2-5.4); WHITE BLOOD COUNT 8.09 K/uL (4.8-10.8)
[2016-12-02 07:03] VITALS: BP 165/94; PULSE 97; TEMP 36.8; O2SAT 96
[2016-12-02 07:24] LABS: BUN/CREATININE RATIO 22.1 (10-20); CALCIUM 8.7 mg/dl (8.5-10.1); CREATININE 0.86 mg/dl (0.60-1.20); MAGNESIUM 2.3 mg/dl (1.8-2.4); POTASSIUM 4.4 mmol/L (3.5-5.1)
[2016-12-02 08:00] VITALS: O2SAT 96
[2016-12-02] MEDS: INSULIN ASPART 100 UNITS/ML 3 ML PEN SC SCH ×4 (08:00→21:00)
[2016-12-02] MEDS: TRAMADOL HCL 50 MG TAB PO PRN (08:22)
[2016-12-02] MEDS: METOPROLOL TARTRATE 25 MG TAB PO SCH ×2 (08:22→20:54)
[2016-12-02] MEDS: FERROUS SULFATE 325 MG TAB PO SCH ×2 (08:23→18:13)
[2016-12-02] MEDS: FLUTICASONE/SALMETEROL 250/50 (ADVAIR) 14 PUFF/1 INHALER INH SCH ×2 (08:23→20:54)
[2016-12-02] MEDS: PANTOprazole SOD 40 MG TAB PO SCH (08:24)
[2016-12-02] MEDS: CLOPIDOGREL BISULFATE 75 MG TAB PO SCH (08:24)
[2016-12-02] MEDS: DOCUSATE SODIUM/SENNA 50/8.6MG TAB PO SCH (08:24)
[2016-12-02] MEDS: CARBIDOPA/LEVODOPA 25/100MG TAB PO SCH ×4 (08:25→20:56)
[2016-12-02] MEDS: CYANOCOBALAMIN 500 MCG TAB (VIT B-12) PO SCH (08:25)
[2016-12-02 09:32] VITALS: BP 111/70
[2016-12-02] MEDS: VENLAFAXINE HCL XR 75 MG CAPXR PO SCH (12:05)
[2016-12-02] MEDS: GABAPENTIN 100 MG CAP PO SCH ×2 (14:04→20:56)
[2016-12-02] MEDS ORDERED: BUPIVACAINE 0.5 % 5 MG/1 ML MPF 30ML VIAL INFIL SCH (14:30)
[2016-12-02] MEDS ORDERED: TRIAMCINOLONE ACET 40 MG/ML VIAL IM SCH (14:30)
[2016-12-02 14:59] VITALS: BP 159/81; PULSE 100; TEMP 36.6; O2SAT 97
--- NOTE | 2016-12-02 15:54 | CONSULTATION REPORT ---
DATE OF CONSULTATION: 12/02/2016 TIME: 1431. CONSULTING PHYSICIAN: Dr. Cruz. Plan of care discussed with Dr. Mcdermott. CHIEF COMPLAINT: Left-sided lancinating scalp pain. HISTORY OF PRESENT ILLNESS: Ms. Solomon is an 81-year-old white female who currently resides at the [place]. She was admitted due to a fall on November 30. She apparently struck her head region and was complaining of pain in the neck and shoulder location. She was found to have a nondisplaced fracture to the base of the odontoid process as well as a mild acute superior endplate compression fracture of T3. She is currently being managed by ortho spine with [place] J collar and conservative management at this time. She is reporting minimal pain in the axial and neck radiating into the shoulders currently. Her predominant complaint is lancinating episodic, sharp and shooting pain in the left scalp location originating in the posterior auricular location and traveling in a hemicranial distribution. She reports these episodes are episodic occurring multiple times per day, not based on movement or activity. She denies visual disturbances associated with the pain. She denies pain radiating into the shoulders or upper extremities. She denies weaknesses or dropping of objects. She indicates that she is moving her bowel and bladder appropriately without complications. The patient has no new neurologic or further constitutional complaints at this time. PAST MEDICAL HISTORY: 1. Depressive disorder. 2. Parkinson's disease. 3. GERD. 4. Diabetes mellitus. 5. Hyperlipidemia. 6. Hypertension. 7. Asthma. 8. Macular degeneration with transient visual hallucinations and visual impairment. PAST SURGICAL HISTORY: Unremarkable. SOCIAL HISTORY: The patient is , currently residing at the [facility]. She denies alcohol, tobacco or illicit drug use. FAMILY HISTORY: 1. Gallbladder disease. 2. CAD. 3. Hypertension. 4. Chronic kidney disease. 5. Nephrolithiasis. ALLERGIES: DIPHENHYDRAMINE, IODINE, SHELLFISH, CIPROFLOXACIN, LATEX ON ALLERGIC CONTACT DERMATITIS, QUININE, TRIPROLIDINE. CURRENT MEDICATIONS: Reviewed extensively in the EMR, refer for list. REVIEW OF SYSTEMS: The patient denies complaints related to cardiac, pulmonary, GI, , endocrine, neurologic, hepatic, renal, ENT, dermatologic, musculoskeletal as described above in the HPI. PHYSICAL EXAMINATION: VITAL SIGNS: Temperature 36.8 degrees Celsius, pulse 97, respirations 16, BP 111/70 and a pulse ox of 96% on room air. GENERAL: Ms. Solomon is sitting upon entering her room, in no acute distress. Speech and thought process are appropriate. Mood and affect are appropriate. Cognition appeared to be intact. The patient does have a [place] J collar in place. HEENT: Scalp, the patient is moderately tender over the left lesser occipital and greater occipital nerve to direct palpation. She is nontender correspondingly on the right. I am unable to specifically reproduce her lancinating pain upon palpation. She is nontender over the supraorbital, supratrochlear, or auriculotemporal nerves bilaterally. NECK: [place] J collar was not removed for examination. The patient is moderately tender to paravertebral, proximal and mid trapezius musculature to palpation. There is minimal spasm appreciated. No focal facet joint tenderness is appreciated. UPPER EXTREMITIES: Strength was 5/5 with hand senior civil engineer and opposition. Fuller sign was negative bilaterally. Sensation appeared to be intact without notable deficits. The patient does have a mild resting tremor appreciated in the upper extremities. LOWER EXTREMITIES: SLR is negative. Strength testing is 5/5 with plantar flexion, ankle dorsiflexion, knee flexion/extension maneuvering. Sensation is intact without deficits. No evidence of ankle clonus. NEUROLOGIC: Cranial nerves are grossly intact. Ambulatory function was not witnessed. IMAGING: Studies were reviewed which revealed a cervical spine CT dated 11/30/2016 revealed an acute and non-distracted fracture to the base of the odontoid process -- type 2. Mild acute superior endplate compression fracture of T3. No additional fractures were seen. Osteopenia and advanced multilevel cervical spondylosis appreciated. Head CT dated 11/30/2016 revealed no acute intracranial abnormality. Age related chronic small vessel change and atrophy is appreciated. ASSESSMENT: 1. Occipital neuralgia status post fall. 2. Type 2 odontoid fracture -- nondisplaced, status post fall. 3. Parkinson's disease. 4. Diabetes mellitus. 5. History of transient ischemic attack on chronic antiplatelet therapy with clopidogrel. TREATMENT AND RECOMMENDATIONS: 1. Will recommend the patient undergo a left-sided greater and lesser occipital nerve block. The procedure was discussed in detail with the patient. Informed consent was obtained. The procedure was completed -- refer to below for procedure note. 2. Further treatment recommendations will be made pending symptomatic response. 3. The patient may continue with p.r.n. tramadol for breakthrough pain, which she is utilizing minimally with 1 dose in the past 12 hours for pain associated with the axial neck and cervical/shoulder locations. She may continue with Tylenol currently as prescribed without change. 4. The patient will maintain her [place] J collar per orthopedic surgery with PT and OT evaluation to occur. PROCEDURE NOTE: Inherent risks and potential benefits reviewed. The left occipital and posterior auricular scalp was cleansed with alcohol. Using typical anatomic landmarks, the greater occipital and lesser occipital nerves were identified via direct palpation. At this time, 2 mL of a combination of 6 mL of 0.5% bupivacaine and 40 mg of Kenalog was injected after negative aspiration for blood in fan-like fashion. It was carried out with a 25 gauge 5/8th inch. The needle was then withdrawn and hemostasis was maintained. The patient tolerated the procedure well. MELYD
[2016-12-02 20:51] VITALS: BP 154/88; PULSE 98
[2016-12-02] MEDS: MONTELUKAST SOD 10 MG TAB PO SCH (20:55)
[2016-12-02] MEDS: ROPINIROLE HCL 1 MG TAB PO SCH (20:56)
[2016-12-02 22:55] VITALS: BP 133/79; PULSE 87; TEMP 37.2; O2SAT 95
--- NOTE | 2016-12-02 22:59 | DIAGNOSTIC IMAGING REPORT ---
CERVICAL SPINE MRI HISTORY: Pain neuropathy TECHNIQUE: Multiplanar multisequence MRI of the cervical spine was performed without the use of contrast. COMPARISON STUDY: None. FINDINGS: Severe degenerative change throughout the entire cervical region. Severe degenerative changes of the C1-C2 complex. Multilevel posterior osteophytic reaction throughout. Signal characteristics the cervical cord appear unremarkable. C2-C3: Moderate osteophytic narrowing left neuroforamina. No disc herniation. C3-C4: Mild osteophytic narrowing of the neuroforamina bilaterally. C4-C5: Moderate osteophytic narrowing of the neuroforamina bilaterally. C5-C6: Broad-based right central disc herniation. Mild impact right anterior aspect cervical cord. Osteophytic narrowing of the neuroforamina bilaterally. C6-C7: Broad-based bulging disc. Moderate narrowing of the neuroforamina bilaterally. C7-T1: Moderate osteophytic narrowing of the neuroforamina bilaterally. No disc herniation. IMPRESSION: 1. Severe multilevel degenerative disc change throughout the entire cervical region. 2. Considerable degenerative change of the C1-C2 complex. 3. Broad-based right central disc herniation C5-C6 with moderate impact anterior cervical cord. 4. Moderate osteophytic narrowing of the neuroforamina bilaterally at virtually all levels of the cervical region. 5. The previously described fracture of the cervical spine dated 09/07/2016 is less well-defined possibly secondary to the superimposed degenerative change throughout. Electronically signed by: Terry Chavis M.D. 12/02/2016 10:58 PM Dictated Date/Time: 12/02/2016 10:53 PM
--- NOTE | 2016-12-03 05:44 | Progress Note ---
Subjective Date of Service: Dec 02, 2016. Subjective Pt evaluation today including: conversation w/ patient, conversation w/ family (daughter by phone), physical exam, chart review, lab review, conversation w/ automation consultant (orthopedics, pain management, social work), review of inpatient medication list Pain: posterior scalp, especially on left, along with left parietal-temporal area PO Intake: better today Voiding: no voiding problems patient overall doing better, but continues with sharp "jabs" of pain on the scalp over the area noted above she had several episodes of pain during my visit which looked neuropathic in appearance when she gets the pain she clutches the scalp due to the pain denies weakness of arms/legs denies paresthesias of arms Problem List Medical Problems: (1) Altered mental status Status: Acute (2) Contusion of left hip and thigh Status: Acute (3) CVA (cerebral vascular accident) Status: Acute (4) Dens fracture Status: Acute (5) Expressive aphasia Status: Acute (6) Fall Status: Acute (7) Fall Status: Acute (8) Inability to ambulate due to left knee Status: Acute (9) Left knee sprain Status: Acute (10) TIA (transient ischemic attack) Status: Acute (11) TIA (transient ischemic attack) Status: Acute Review of Systems Constitutional: No fever Respiratory: No shortness of breath Cardiac: No chest pain Abdomen: No pain Objective Vital Signs Date Time Temp Pulse Resp B/P (MAP) Pulse Ox O2 Delivery O2 Flow Rate FiO2 12/02/16 16:15 Room Air 12/02/16 14:59 36.6 100 16 159/81 (107) 97 Room Air 12/02/16 09:32 111/70 (84) 12/02/16 08:00 96 12/02/16 07:03 36.8 97 16 165/94 (117) 96 Room Air 12/02/16 00:20 Room Air 12/01/16 23:02 36.7 98 18 144/77 (99) 92 Room Air 12/01/16 20:50 151/96 (114) 98 Physical Exam General Appearance: + mild distress (when she gets pain) ENT: pharynx normal (MMM) Neck: + pertinent finding ([place] j collar in place) Respiratory/Chest: lungs clear, no respiratory distress, no accessory muscle use Cardiovascular: regular rate, rhythm, no gallop, no murmur Abdomen: normal bowel sounds, non tender, soft, no organomegaly Extremities: no pedal edema 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: no motor/sensory deficits (arms/legs), alert, oriented x 3, + pertinent finding (anxious ) Laboratory Results Last 24 Hours Test 12/01/16 20:47 12/02/16 06:35 12/02/16 08:13 12/02/16 12:04 Bedside Glucose 106 mg/dl 102 mg/dl 87 mg/dl White Blood Count 8.09 K/uL Red Blood Count 3.98 M/uL Hemoglobin 12.9 g/dL Hematocrit 37.7 % Mean Corpuscular Volume 94.7 fL Mean Corpuscular Hemoglobin 32.4 pg Mean Corpuscular Hemoglobin Concent 34.2 g/dl RDW Standard Deviation 46.1 fL RDW Coefficient of Variation 13.2 % Platelet Count 267 K/uL Mean Platelet Volume 8.9 fL Sodium Level 140 mmol/L Potassium Level 4.4 mmol/L Chloride Level 109 mmol/L Carbon Dioxide Level 25 mmol/L Anion Gap 6.0 mmol/L Blood Urea Nitrogen 19 mg/dl Creatinine 0.86 mg/dl Est Creatinine Clear Calc Drug Dose 42.5 ml/min Estimated GFR () 73.4 Estimated GFR (Non- 63.4 BUN/Creatinine Ratio 22.1 Random Glucose 102 mg/dl Calcium Level 8.7 mg/dl Magnesium Level 2.3 mg/dl Test 12/02/16 16:50 Bedside Glucose 100 mg/dl Assessment and Plan 81yo female with: 1. C2 Non-Displaced Dens Fracture: - Continue Cervical Collar - Nonoperative management at this time - Pain control with scheduled tylenol 1gm TID, ultram prn, oxycodone (low-dose) prn - gabapentin 100 BID also added for apparent neuropathic pain 2. Parkinson's Disease and Restless Legs: - Sinemet 2 tabs QID and Requip 1 mg HS 3. Hypertension - controlled with lopressor 4. mild acute kidney injury - improved d/c fluids today 5. h/o TIA - on plavix for secondary prevention. 6. anemia - both b12 and folate are low-normal; replace both. 7. GERD - PPI 8. T2DM - diet controlled 9. asthma - controlled, not in exacerbation; cont singulair and prn albuterol. 10. PT, OT evals completed - ok to return to the [place] 11. mild acute superior endplate compression fracture of T3 - fortunately no symptoms/pain. 12. occipital neuralgia 2nd to cervical spine fracture - spoke with ortho - MRI c-spine ordered they recommended pain management consult and consideration of occipital nerve block pain management completed such hopefully this will provide lasting relief gabapentin 100mg BID family updated by phone hopefully d/c tomorrow Discharge planning: other ([facility] [facility])
[2016-12-03] MEDS: ACETAMINOPHEN 500 MG TAB PO SCH ×2 (05:57→13:40)
[2016-12-03 06:07] LABS: HEMATOCRIT 36.7 % (37-47); MEAN CELL VOLUME 95.3 fL (80-100); MEAN CORPUSCULAR HEMOGLOBIN 31.7 pg (25-34); MEAN CORPUSCULAR HGB CONC 33.2 g/dl (32-36); MEAN PLATELET VOLUME 8.9 fL (7.4-10.4); PLATELET COUNT 281 K/uL (130-400); RED BLOOD COUNT 3.85 M/uL (4.2-5.4); WHITE BLOOD COUNT 7.64 K/uL (4.8-10.8)
[2016-12-03 06:40] LABS: BUN/CREATININE RATIO 26.4 (10-20); CREATININE 0.84 mg/dl (0.60-1.20); POTASSIUM 4.2 mmol/L (3.5-5.1)
[2016-12-03 07:14] VITALS: BP 163/81; PULSE 95; TEMP 36.6; O2SAT 97
[2016-12-03 07:55] VITALS: O2SAT 96
[2016-12-03] MEDS: INSULIN ASPART 100 UNITS/ML 3 ML PEN SC SCH ×2 (08:00→12:48)
[2016-12-03 08:18] VITALS: BP 167/97; PULSE 104; TEMP 37
[2016-12-03] MEDS: FLUTICASONE/SALMETEROL 250/50 (ADVAIR) 14 PUFF/1 INHALER INH SCH (08:20)
[2016-12-03] MEDS: FERROUS SULFATE 325 MG TAB PO SCH (08:20)
[2016-12-03] MEDS: CYANOCOBALAMIN 500 MCG TAB (VIT B-12) PO SCH (08:21)
[2016-12-03] MEDS: CLOPIDOGREL BISULFATE 75 MG TAB PO SCH (08:21)
[2016-12-03] MEDS: METOPROLOL TARTRATE 25 MG TAB PO SCH (08:22)
[2016-12-03] MEDS: DOCUSATE SODIUM/SENNA 50/8.6MG TAB PO SCH (08:23)
[2016-12-03] MEDS: GABAPENTIN 100 MG CAP PO SCH (08:23)
[2016-12-03] MEDS: CARBIDOPA/LEVODOPA 25/100MG TAB PO SCH ×2 (08:23→13:01)
[2016-12-03] MEDS: PANTOprazole SOD 40 MG TAB PO SCH (08:24)
[2016-12-03 09:47] VITALS: BP 128/74
[2016-12-03] MEDS: VENLAFAXINE HCL XR 75 MG CAPXR PO SCH (13:01)
[2016-12-03 13:27] VITALS: BP 153/85
[2016-12-03 13:45] VITALS: BP 153/85; PULSE 104; TEMP 37; O2SAT 96
[2016-12-03] MEDS ORDERED: NRN100 PO (14:12)
[2016-12-03] MEDS ORDERED: METO25TA56 PO (14:12)
[2016-12-03] MEDS ORDERED: FLV1 PO (14:12)
[2016-12-03] MEDS ORDERED: CYAN1SUB13 PO (14:12)
[2016-12-03] MEDS ORDERED: ULT50X PO (14:12)
[2016-12-03] MEDS ORDERED: ACET-24 PO (14:12)
--- NOTE | 2016-12-03 14:33 | Discharge Instructions ---
Discharge Instructions Date of Service Dec 03, 2016. Admission Reason for Admission: C2 Cervical Fracture Discharge Discharge Diagnosis / Problem: C2 fracture of the neck Discharge Goals Goal(s): Decrease discomfort, Improve function, Improve disease control, Learn about illness, Diagnostic testing, Therapeutic intervention Activity Recommendations Activity Limitations: as noted below Lifting Limitations: no more than 10 pounds Exercise/Sports Limitations: gradually increase as tolerated (light activity is best) Please keep the neck brace on while sleeping and during the daytime. You may remove the brace for brief periods of time to eat your meals as well as shower. . Instructions / Follow-Up Instructions / Follow-Up From Dr. Cruz - 1. Broken neck (fracture of C2) - * please continue your neck brace and wear at all times including during sleep; you may remove the brace for meals to allow easier swallowing and for showering * please follow-up with Dr. Henri Gee or ANJANA Leone - [facility] - in 2 weeks * for pain control use the following - * tylenol 1000mg three times a day scheduled for the next 7 days * gabapentin 100mg twice a day * tramadol 50mg every 6 hours NEEDED for pain * if you are experiencing weakness in the arms or legs; numbness in the arms, chest, abdomen, or legs; or worsening pain in the neck - please contact Dr. Gee's office right away 2. Your vitamin B12 and folic acid levels were mildly low. Please take the following - * vitamin b12 1000mcg daily for 6 months * folic acid 1mg daily for 1 month 3. Please INCREASE your metoprolol to 25mg twice a day (you were previously taking 12.5mg twice a day). 4. Follow-up appointments - * please see Dr. Artemio Cleary within the next 5 days * see Dr. Henri Gee or his PA, Maame Pickett, in the next 2 weeks for your neck 5. Return to [facility] if - * you have fever over 100.4 degrees * you have difficulty moving your arms or legs (weakness) * you have numbness of the arms/legs/chest/abdomen * worsening pain not responding to your pain medications Current Hospital Diet Patient's current hospital diet: Diabetes Type 2 Diet Discharge Diet Recommended Diet: Diabetes Type 2 Diet Procedures Procedures Performed: CAT scan of the head - normal. CAT scan of the neck showing C2 fracture. MRI of the neck showing multiple levels of arthritis and herniated discs. Occipital nerve block. Pending Studies Studies pending at discharge: no Laboratory Results Hemoglobin A1c Test 09/09/16 08:43 Range/Units Estimated Average Glucose 123 mg/dl Hemoglobin A1c 5.9 H 4.5-5.6 % Lipid Panel Test 09/09/16 08:43 Range/Units Triglycerides Level 169 H 0-150 mg/dl Cholesterol Level 165 0-200 mg/dl HDL Cholesterol 66 mg/dl Cholesterol/HDL Ratio 2.5 LDL Cholesterol, Calculated 65 mg/dl Medical Emergencies . Who to Call and When: Medical Emergencies: If at any time you feel your situation is an emergency, please call 911 immediately. . Non-Emergent Contact Non-Emergency issues call your: Surgeon (orthopedics) Call Non-Emergent contact if: your pain is not controlled, your pain is worsening, your pain is unusual for you, your pain is concerning you, you have any medication questions . . "Provider Documentation" section prepared by Mark Cruz. . VTE Core Measure Inpt VTE Proph given/why not?: Zo Lind, SCD's
--- NOTE | 2016-12-07 11:18 | Discharge Summary ---
Discharge Summary Date of Service Dec 07, 2016. Discharge Summary Admission Date: Nov 30, 2016 at 08:12 Discharge Date: Dec 03, 2016 Discharge Disposition: Personal care ([facility] [place]) Principal Diagnosis: C2 fracture Problems/Secondary Diagnoses: 1. acute kidney injury - resolved 2. CKD stage 3 3. asthma 4. depression/anxiety 5. diet-controlled T2DM 6. HTN 7. Parkinson's disease 8. GERD 9. hyperlipidemia 10. compression fracture of T3, traumatic; likely osteoporotic in nature 11. occipital neuralgia in the setting of her C2 fracture 12. h/o restless legs syndrome 13. low-normal vitamin B12 level 13. iron deficiency 14. h/o TIA Procedures: 1. CT cervical spine - IMPRESSION: 1. There is an acute and nondistracted fracture through the base of the odontoid process (type II). 2. There is a mild acute superior endplate compression fracture of T3. 3. No additional fracture is seen. 4. Osteopenia and advanced multilevel cervical spondylosis as above. 2. CT head negative for ICH or stroke. 3. MRI cervical spine - IMPRESSION: 1. Severe multilevel degenerative disc change throughout the entire cervical region. 2. Considerable degenerative change of the C1-C2 complex. 3. Broad-based right central disc herniation C5-C6 with moderate impact anterior cervical cord. 4. Moderate osteophytic narrowing of the neuroforamina bilaterally at virtually all levels of the cervical region. 5. The previously described fracture of the cervical spine dated 11/30/2016 is less well-defined possibly secondary to the superimposed degenerative change throughout. 4. occipital nerve block, left - ANJANA Horowitz Consultations: 1. orthopedics - Henri Gee DO / ANJANA Leone 2. pain management - ANJANA Horowitz 3. PT, OT Medication Reconciliation New Medications: Acetaminophen (Sb Non-Aspirin Extra Stre) 500 Mg Tab 1000 MG PO Q8 for 7 Days, #42 TAB 0 Refills Cyanocobalamin (B-12) 1,000 Mcg Sub 1000 MCG PO DAILY, #30 TABS 5 Refills Folic Acid (Folic Acid) 1 Mg Tab 1 MG PO QAM, #30 TABS 0 Refills Gabapentin (Gabapentin) 100 Mg Cap 100 MG PO BID for 14 Days, #28 CAP 0 Refills Tramadol HCl (Tramadol HCl) 50 Mg Tab 50 MG PO Q6H PRN for Pain, #30 TAB 0 Refills Changed Medications: Metoprolol Tartrate (Lopressor) (Lopressor) 25 Mg Tab 25 MG PO BID, #60 TAB 5 Refills (Changed from: 12.5 MG; Refills: ) Continued Medications: Acetaminophen (Tylenol) 500 Mg Tab 500 MG PO Q4 PRN for MILD PAIN/FEVER>101 MAX 3GM/24HR Albuterol Hfa (Ventolin Hfa) 200 Puffs/68721 Mcg Aers 2 PUFFS INH Q6H PRN for BREATHING/ASTHMA, #1 INHALER Carbidopa/Levodopa (Sinemet 25MG/100MG) Tab 2 TABS PO QID, TAB Clopidogrel Bisulfate (Clopidogrel) 75 Mg Tab 75 MG PO QAM for 30 Days, #30 TAB Ferrous Sulfate (Ferrous Sulfate) 325 Mg Tab 325 MG PO BIDM for 30 Days, TAB Fluticasone Prop/Salmeterol (Advair Diskus 250/50 60 Dose) 1 Ea Aerp 1 PUFF INH BID, INHALER Hydroxyzine HCl (Hydroxyzine HCl) 10 Mg Tab 10 MG PO HS PRN for ITCHING/ANXIETY Melatonin (Melatonin) 3 Mg Tab 3 MG PO HS Montelukast Sodium (Singulair) 10 Mg Tab 10 MG PO HS, TAB Pantoprazole (Protonix) 40 Mg Tab 40 MG PO DAILY, 0 Refills Ranitidine Hcl (Zantac) 75 Mg Tab 75 MG PO DAILY PRN for Heartburn, TAB Ropinirole HCl (Ropinirole HCl) 1 Mg Tab 1 MG PO HS for 30 Days, TAB Sennosides-Docusate Sodium (Senna S) 1 Tab Tab 1 TAB PO DAILY @ NOON Triamcinolone Acet (Aristocort 0.1%) 90 Appln/30 Gm Cr 1 APPLN TOP BID PRN for RASH Venlafaxine Hcl (Effexor Extended Rel) 75 Mg Capcr 75 MG PO DAILY@1200, CAP Referrals At Discharge Follow up Referrals: Orthopedics Referral - Within 2 Weeks with Saúl Gee D.O. Discharge Exam Physical Exam: General Appearance: no apparent distress, + pertinent finding (anxious) ENT: pharynx normal Neck: + pertinent finding (ute j collar in place) Respiratory/Chest: lungs clear, no respiratory distress, no accessory muscle use Cardiovascular: regular rate, rhythm, no gallop, no murmur, normal peripheral pulses Abdomen / GI: normal bowel sounds, non tender, soft, no organomegaly Extremities: no pedal edema 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: no motor/sensory deficits (upper or lower extremities ), alert, oriented x 3 Hospital Course HISTORY OF PRESENT ILLNESS: Ms. 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 Patient is a resident of the [place]. She reports walking to the bathroom and slipping on the rug. She denies precipitating events such as CP, SOB, dizziness/ lightheadedness. She reports having MS and says this has been worsening. However , cannot find documentation of MS and follows with Dr. Loyd for Parkinson's. She denies hitting her head and LOC. She had to crawl to her bed to ring for assistance. She states "my legs just do not work as well as they used to". She reports L sided headache, neck pain, and L shoulder pain. These symptoms are improving at this time but movement of L arm exacerbates symptoms. She is anxious and kept saying she was disappointed in herself because of this. Previous admission revealed that she has multiple unresponsive episodes with extensive neurological work-up that was largely negative. Question possible visual disturbances, orthostasis, and TIA?. In the ED, patient is hypertensive but fluctuating and mildly tachycardic. Generalized weakness but no focal neurological deficits appreciated. Mild cogwheeling of upper extremities. CT Head was negative for acute infarct. CT C- spine with non-displaced type II dens fracture. HOSPITAL COURSE: The patient was seen in consult by orthopedics for her nondisplaced C2 Dens fracture. Conservative management was recommended including use of [place] J collar and pain management. She was treated with tylenol, ultram, and gabapentin for her pain. While hospitalized she developed fairly severe left occipital neuralgia due to the fracture. As a result pain management was consulted who performed a left-sided occipital nerve block with relief of her pain symptoms. She was seen in consult by PT & OT. After consulting with her personal long-term - the [place] - it was determined she could return there with home health services and home PT/OT. Her stay was complicated by significant anxiety and a mild acute kidney injury due to poor oral intake. The latter resolved with IV hydration. All other medical problems including her Parkinson's disease remained stable. Although a T3 compression fracture was discovered on imaging she reported no significant pain over this region. At discharge she was advised to wear her cervical spine collar at all times except for meals and personal hygiene activities. She will need follow-up with Dr. Gee or ANJANA Leone, within 2 weeks of discharge. Total Time Spent: Greater than 30 minutes This includes examination of the patient, discharge planning, medication reconciliation, and communication with other providers. Discharge Instructions Please refer to the electronic Patient Visit Report (Discharge Instructions) for additional information. Follow-Up 1. see Henri Gee DO or his PA, Maame Pickett - within [address] Artemio Cleary, PCP, within 5-7 days Additional Copies To Saúl Gee D.O.; Justin Chavira PA; Maame Pickett EGagandeep P.Travis; Artemio Cleary M.D.
== END 2016-12-03 14:58 | disposition home or self-care (01) | DRG 552 ==
LOC: EDBD 04:08 → C.EDB 04:09 → C.MSW 08:12 → ENRESERV 08:45
PROVIDERS: ADMIT Internal Medicine; ATTEND Internal Medicine
DX: S12.112A Nondisplaced Type II dens fracture, initial encounter for closed fracture (principal); N17.9 Acute kidney failure, unspecified; S12.200A Unspecified displaced fracture of third cervical vertebra, initial encounter for closed fracture; M54.81 Occipital neuralgia; W01.190A Fall on same level from slipping, tripping and stumbling with subsequent striking against furniture, initial encounter; Y92.192 Bathroom in other specified residential institution as the place of occurrence of the external cause; E86.9 Volume depletion, unspecified; E53.8 Deficiency of other specified B group vitamins; R44.1 Visual hallucinations; G20 Parkinson's disease; R26.2 Difficulty in walking, not elsewhere classified; I10 Essential (primary) hypertension; E11.9 Type 2 diabetes mellitus without complications; D50.9 Iron deficiency anemia, unspecified; G25.81 Restless legs syndrome; K21.9 Gastro-esophageal reflux disease without esophagitis; J45.909 Unspecified asthma, uncomplicated; H35.30 Unspecified macular degeneration; H54.8 Legal blindness, as defined in USA; Z86.73 Personal history of transient ischemic attack (TIA), and cerebral infarction without residual deficits; Z79.02 Long term (current) use of antithrombotics/antiplatelets; Z79.51 Long term (current) use of inhaled steroids; Z79.899 Other long term (current) drug therapy

== ENCOUNTER 2017-03-10 12:49 | Emergency (ER) | payer OTHER ==
[~2017-03-10] VITALS: Ht 160 cm; Wt 56.4 kg
[~2017-03-10 12:49] MED LIST changes: +ACET-24 PO; +ADVIN25/60 INH; -ADVIN50050 INH; -CARB25TA PO; +CARB25TA12 PO; +CYAN1SUB13 PO; +FLV1 PO; -LOVA40TA4 PO; -LPR25 PO; +METO25TA56 PO; +NRN100 PO; +RANITAB33 PO; -ROPI0.5T15 PO; -SENN-65 PO; +SENN-91 PO; +ULT50X PO
[2017-03-10 12:55] VITALS: TEMP 37.1; Ht 160 cm; Wt 56.4 kg
--- NOTE | 2017-03-10 14:24 | EMERGENCY ROOM VISIT NOTE ---
History Report prepared by Diana: Deonte aFir Under the Supervision of: Dr. Byron Justin D.O. First contact with patient: 13:52 Chief Complaint: SHORTNESS OF BREATH Stated Complaint: SHORTNESS OF BREATH Nursing Triage Summary: pt [facility] via [facility] reports while at PT a couple of days ago started feeling nauseated and more weak today pt reports increased exertional sob pt reports also intermittent VILLA ongoing since a fall 2 months ago History of Present Illness The patient is a 81 year old female who presents to the Emergency Room with complaints of intermittent shortness of breath for the past few days when she walks. The patient additionally states that when she gets up to walk she gets shaky and dizzy. The patient states that she has had chronic bronchitis for a few years. She states that she was at PT this morning for her broken back, and they wanted her to come to the ED for evaluation. She states that she has been eating well recently. She denies any fevers or other cold symptoms. Source of History: patient Onset: past few days Position: other (global) Quality: other (shortness of breath) Timing: intermittent Modifying Factors (Worsening): other (walking) Associated Symptoms: No fevers Note: Associated symptoms: Dizziness and shaky Review of Systems See HPI for pertinent positives & negatives. A total of 10 systems reviewed and were otherwise negative. Past Medical & Surgical Medical Problems: (1) Asthma, Unspecified (2) C2 cervical fracture (3) Depressive Disorder Nec (4) Diab Leticia Wo Compl, Type Ii Or Unspec Type, Not Uncntrld (5) Esophageal Reflux (6) Hyperlipidemia Nec/Nos (7) Hypertension Nos (8) Parkinson disease (9) Pneumonia (10) Slurring of speech Family History Gallbladder disease Heart disease Hypertension Kidney disease Kidney stones Social History Smoking Status: Never Smoker Alcohol Use: none Drug Use: none Marital Status: Housing Status: lives with family Occupation Status: retired Current/Historical Medications Scheduled Carbidopa/Levodopa (Sinemet 25MG/100MG), 2 TABS PO QID Clopidogrel Bisulfate (Clopidogrel), 75 MG PO QAM Cyanocobalamin (B-12), 1,000 MCG PO DAILY Ferrous Sulfate (Ferrous Sulfate), 325 MG PO BIDM Fluticasone Prop/Salmeterol (Advair Diskus 250/50 60 Dose), 1 PUFF INH BID Folic Acid (Folic Acid), 1 MG PO QAM Melatonin (Melatonin), 3 MG PO HS Metoprolol Tartrate (Lopressor) (Lopressor), 25 MG PO BID Montelukast Sodium (Singulair), 10 MG PO HS Pantoprazole (Protonix), 40 MG PO DAILY Ropinirole HCl (Ropinirole HCl), 1 MG PO HS Sennosides-Docusate Sodium (Senna S), 1 TAB PO DAILY @ NOON Venlafaxine Hcl (Effexor Extended Rel), 75 MG PO DAILY@1200 Scheduled PRN Acetaminophen (Tylenol), 500 MG PO Q4 PRN for MILD PAIN/FEVER>101 Albuterol Hfa (Ventolin Hfa), 2 PUFFS INH Q6H PRN for BREATHING/ASTHMA Hydroxyzine HCl (Hydroxyzine HCl), 10 MG PO HS PRN for ITCHING/ANXIETY Tramadol HCl (Tramadol HCl), 50 MG PO Q6H PRN for Pain Triamcinolone Acet (Aristocort 0.1%), 1 APPLN TOP BID PRN for RASH Allergies Coded Allergies: Diphenhydramine (Verified Allergy, Severe, SWELLING IN THROAT, 03/10/17) Iodine (Verified Allergy, Severe, THROAT SWELLING, 03/10/17) Shellfish (Verified Allergy, Severe, ANAPHYLAXIS AND FULL BODY HIVES, 03/10) Ciprofloxacin (Verified Allergy, Intermediate, HIVES FULL BODY, 03/10/17) Latex1 -Allergic Contact Dermititis (Verified Allergy, Intermediate, DERMATITIS, 03/10/17) Quinine (Verified Allergy, Intermediate, HIVES, 03/10/17) Triprolidine (Verified Allergy, Intermediate, HIVES, ASTHMA EXACERBATION, 03/10/17) Physical Exam Vital Signs Date Time Temp Pulse Resp B/P (MAP) Pulse Ox O2 Delivery O2 Flow Rate FiO2 03/10/17 16:05 95 16 172/120 97 Room Air 03/10/17 14:27 83 16 189/89 96 Room Air 03/10/17 13:40 96 Room Air 03/10/17 13:36 96 22 183/105 97 Room Air 03/10/17 13:04 96 03/10/17 12:55 37.1 94 20 187/93 98 Room Air Physical Exam CONSTITUTIONAL/VITAL SIGNS: Reviewed / noted above. GENERAL: Non-toxic in appearance. INTEGUMENTARY: Warm, dry, and [place]. HEAD: Normocephalic. EYES: without scleral icterus or trauma. ENT/OROPHARYNX: clear and moist. LYMPHADENOPATHY/NECK: Is supple without lymphadenopathy or meningismus. RESPIRATORY: Lungs clear and equal. CARDIOVASCULAR: Regular rate and rhythm. GI/ABDOMEN: Soft and nontender. No organomegaly or pulsatile mass. No rebound or guarding. Normal bowel sounds. EXTREMITIES: Warm and well perfused. BACK: No CVA tenderness. NEUROLOGICAL: Intact without focal deficits. PSYCHIATRIC: normal affect. MUSCULOSKELETAL: Normally developed with good muscle tone. Medical Decision & Procedures ER Provider Diagnostic Interpretation: Radiology results as stated below per my review and radiologist interpretation: CHEST ONE VIEW PORTABLE HISTORY: Short of breath. COMPARISON: Chest 09/08/2016. FINDINGS: Low lung findings. Patchy densities within the left lung base. Mild central pulmonary vascular congestion without overt edema. The heart is top normal in size. No pneumothorax. IMPRESSION: 1. Patchy airspace opacities within the left lung base. This may represent atelectasis or pneumonia. 2. Mild central pulmonary vascular congestion without overt edema. Electronically signed by: Edu Lyons M.D. 03/10/2017 2:25 PM Dictated Date/Time: 03/10/2017 2:24 PM Laboratory Results 03/10/17 14:33 Red Blood Count 3.91, Mean Corpuscular Volume 99.2, Mean Corpuscular Hemoglobin 33.2, Mean Corpuscular Hemoglobin Concent 33.5, Mean Platelet Volume 8.8, Neutrophils (%) (Auto) 58.5, Lymphocytes (%) (Auto) 18.9, Monocytes (%) (Auto) 9.9, Eosinophils (%) (Auto) 11.8, Basophils (%) (Auto) 0.4, Neutrophils # (Auto ) 4.65, Lymphocytes # (Auto) 1.50, Monocytes # (Auto) 0.79, Eosinophils # (Auto ) 0.94, Basophils # (Auto) 0.03 03/10/17 14:33 Test 03/10/17 14:33 03/10/17 14:53 White Blood Count 7.95 K/uL (4.8-10.8) Red Blood Count 3.91 M/uL (4.2-5.4) Hemoglobin 13.0 g/dL (12.0-16.0) Hematocrit 38.8 % (37-47) Mean Corpuscular Volume 99.2 fL (80-100) Mean Corpuscular Hemoglobin 33.2 pg (25-34) Mean Corpuscular Hemoglobin Concent 33.5 g/dl (32-36) Platelet Count 299 K/uL (130-400) Mean Platelet Volume 8.8 fL (7.4-10.4) Neutrophils (%) (Auto) 58.5 % Lymphocytes (%) (Auto) 18.9 % Monocytes (%) (Auto) 9.9 % Eosinophils (%) (Auto) 11.8 % Basophils (%) (Auto) 0.4 % Neutrophils # (Auto) 4.65 K/uL (1.4-6.5) Lymphocytes # (Auto) 1.50 K/uL (1.2-3.4) Monocytes # (Auto) 0.79 K/uL (0.11-0.59) Eosinophils # (Auto) 0.94 K/uL (0-0.5) Basophils # (Auto) 0.03 K/uL (0-0.2) RDW Standard Deviation 56.5 fL (36.4-46.3) RDW Coefficient of Variation 15.6 % (11.5-14.5) Immature Granulocyte % (Auto) 0.5 % Immature Granulocyte # (Auto) 0.04 K/uL (0.00-0.02) Prothrombin Time 10.1 SECONDS (9.0-12.0) Prothromb Time International Ratio 0.9 (0.9-1.1) Activated Partial Thromboplast Time 25.4 SECONDS (21.0-31.0) Partial Thromboplastin Ratio 1.0 Anion Gap 7.0 mmol/L (3-11) Est Creatinine Clear Calc Drug Dose 44.0 ml/min Estimated GFR () 76.6 Estimated GFR (Non- 66.1 BUN/Creatinine Ratio 24.2 (10-20) Calcium Level 9.4 mg/dl (8.5-10.1) Total Bilirubin 0.3 mg/dl (0.2-1) Aspartate Amino Transf (AST/SGOT) 17 U/L (15-37) Alanine Aminotransferase (ALT/SGPT) 16 U/L (12-78) Alkaline Phosphatase 133 U/L (45-117) Troponin I < 0.015 ng/ml (0-0.045) Pro-B-Type Natriuretic Peptide 1733 pg/ml (0-1800) Total Protein 7.3 gm/dl (6.4-8.2) Albumin 3.8 gm/dl (3.4-5.0) Globulin 3.5 gm/dl (2.5-4.0) Albumin/Globulin Ratio 1.1 (0.9-2) Urine Color YELLOW Urine Appearance CLEAR (CLEAR) Urine pH 7.5 (4.5-7.5) Urine Specific [place] 1.012 (1.000-1.030) Urine Protein NEG (NEG) Urine Glucose (UA) NEG (NEG) Urine Ketones NEG (NEG) Urine Occult Blood NEG (NEG) Urine Nitrite NEG (NEG) Urine Bilirubin NEG (NEG) Urine Urobilinogen NEG (NEG) Urine Leukocyte Esterase TRACE (NEG) Urine WBC (Auto) 1-5 /hpf (0-5) Urine RBC (Auto) 0-4 /hpf (0-4) Urine Hyaline Casts (Auto) 0 /lpf (0-5) Urine Epithelial Cells (Auto) 0-5 /lpf (0-5) Urine Bacteria (Auto) NEG (NEG) Laboratory results as stated above per my review. ECG Indication: SOB/dyspnea Rate (beats per minute): 88 Rhythm: normal sinus Findings: T-wave inversion (Lateral), no ectopy, other (No acute injury) ED Course 1352: Previous medical records were reviewed. The patient was evaluated in room C8. A complete history and physical examination was performed. 1600: On reevaluation, the patient is doing well. I discussed the results and findings with the patient. The patient verbalized agreement of the treatment plan. She was discharged home. Medical Decision Differential includes acute coronary syndrome, myocardial infarction, CVA, TIA, anemia, infection, pneumonia, UTI, pyelonephritis, poor nutrition, dehydration, electrolyte disturbance,hypoglycemia.. This is an 81-year-old female who presents to the ED with a chief complaint of shortness of breath and dizziness while she was ambulating earlier today. She states that she has had up for about a week. She states that she has been eating and drinking okay. Denied any chest pains or recent illness or fevers. She states that currently she is asymptomatic. She states that she is not sure why they sent her here today. The patient's initial blood pressure was elevated. She does have elevated blood pressure during her stay. She was told to have this rechecked by her PCP. The patient's exam was unremarkable. She is in no distress. She denies any complaints. Her blood work including a CBC and complete metabolic panel was unremarkable, troponin is negative, urine did not show infection. Chest x-ray reveals left lower lobe atelectasis and/or pneumonia. Clinically there is no complaint or physical findings to support a pneumonia. The patient was told results. She is felt to be stable for discharge and outpatient follow-up. Medication Reconcilliation Current Medication List: was personally reviewed by me Blood Pressure Screening Patient's blood pressure: Elevated blood pressure Blood pressure disposition: Referred to PCP Impression Primary Impression: Dizziness Scribe Attestation The scribe's documentation has been prepared under my direction and personally reviewed by me in its entirety. I confirm that the note above accurately reflects all work, treatment, procedures, and medical decision making performed by me. Departure Information Dispostion Home / Self-Care Referrals Artemio Cleary M.D. (PCP) Patient Instructions My [facility] Additional Instructions Follow-up with your doctor for further care and evaluation in 1-2 days. Return to the emergency department for worsening or new symptoms or any concerns. You have been examined and treated today on an emergency basis only. This is not a substitute for, or an effort to provide, complete comprehensive medical care. It is impossible to recognize and treat all injuries or illnesses in a single emergency department visit. It is therefore important that you follow up closely with your doctor. Call as soon as possible for an appointment.
[2017-03-10 14:49] LABS: BASO % 0.4 %; BASO ABS # 0.03 K/uL (0-0.2); COMPLETE YES; EOS % 11.8 %; HEMATOCRIT 38.8 % (37-47); IG% 0.5 %; LYMPH % 18.9 %; MEAN CELL VOLUME 99.2 fL (80-100); MEAN CORPUSCULAR HEMOGLOBIN 33.2 pg (25-34); MEAN CORPUSCULAR HGB CONC 33.5 g/dl (32-36); MEAN PLATELET VOLUME 8.8 fL (7.4-10.4); MONO % 9.9 %; NEUT % 58.5 %; PLATELET COUNT 299 K/uL (130-400); RED BLOOD COUNT 3.91 M/uL (4.2-5.4); WHITE BLOOD COUNT 7.95 K/uL (4.8-10.8)
[2017-03-10 14:57] LABS: INR 0.9 (0.9-1.1); PROTHROMBIN TIME (PATIENT) 10.1 SECONDS (9.0-12.0)
[2017-03-10 15:08] LABS: ALT/SGPT 16 U/L (12-78); BLOOD UREA NITROGEN 20 mg/dl (7-18); BUN/CREATININE RATIO 24.2 (10-20); CALCIUM 9.4 mg/dl (8.5-10.1); CARBON DIOXIDE 26 mmol/L (21-32); CHLORIDE 106 mmol/L (98-107); CREATININE 0.83 mg/dl (0.60-1.20); GLUCOSE 99 mg/dl (70-99); POTASSIUM 4.4 mmol/L (3.5-5.1); SODIUM 139 mmol/L (136-145)
[2017-03-10 15:13] LABS: ALB/GLOB RATIO 1.1 (0.9-2); ALKALINE PHOSPHATASE 133 U/L (45-117); AST/SGOT 17 U/L (15-37)
[2017-03-10 15:14] LABS: URINE APPEARANCE CLEAR (CLEAR); URINE BILIRUBIN NEG (NEG); URINE COLOR YELLOW; URINE EPITHELIAL CELL AUTO 0-5 /lpf (0-5); URINE NITRITE NEG (NEG); URINE PH 7.5 (4.5-7.5); URINE SPECIFIC GRAVITY 1.012 (1.000-1.030); UROBILINOGEN NEG (NEG); ZZUR CULT IF INDIC CLEAN CATCH NO
[2017-03-10 15:18] LABS: MANUAL MICROSCOPIC REQUIRED? NO; REVIEW REQ? NO
[2017-03-10 16:34] VITALS: BP 172/85; PULSE 88; O2SAT 98
== END 2017-03-10 16:35 | disposition home or self-care (01) ==
LOC: EDBD 12:49 → C.EDC 12:50
DX: R42 Dizziness and giddiness (principal); R06.02 Shortness of breath; E11.9 Type 2 diabetes mellitus without complications; E78.5 Hyperlipidemia, unspecified; I10 Essential (primary) hypertension; F32.9 Major depressive disorder, single episode, unspecified; K21.9 Gastro-esophageal reflux disease without esophagitis; J45.909 Unspecified asthma, uncomplicated; Z87.81 Personal history of (healed) traumatic fracture; Z79.899 Other long term (current) drug therapy; Z88.2 Allergy status to sulfonamides; Z88.8 Allergy status to other drugs, medicaments and biological substances; Z91.018 Allergy to other foods; Z91.040 Latex allergy status; Z91.09 Other allergy status, other than to drugs and biological substances; Z83.79 Family history of other diseases of the digestive system; Z82.49 Family history of ischemic heart disease and other diseases of the circulatory system; Z84.1 Family history of disorders of kidney and ureter

== ENCOUNTER → 2017-04-25 | Outpatient (CLI) | payer OTHER ==
[~2017-04-25] MED LIST changes: -ACET-24 PO; -NRN100 PO; -RANITAB33 PO
[2017-04-25 13:27] LABS: ESTIMATED AVERAGE GLUCOSE 111 mg/dl; HA1C FLAG Normal (Normal)
== END | disposition home or self-care (01) ==
LOC: C.LABOAKS 12:22
PROVIDERS: ATTEND Nurse Practitioner
DX: E11.9 Type 2 diabetes mellitus without complications (principal)

== ENCOUNTER → 2017-10-24 | Outpatient (CLI) | payer OTHER | END | disposition home or self-care (01) | LOC: C.LABOAKS 16:49 | PROVIDERS: ATTEND Internal Medicine Critical Care Medicine | DX: R32 Unspecified urinary incontinence (principal); R53.1 Weakness ==

== ENCOUNTER 2017-10-25 09:28 | Emergency (ER) | payer OTHER ==
[~2017-10-25] VITALS: Ht 157.5 cm; Wt 62.5 kg
[2017-10-25 09:35] VITALS: TEMP 37.1; Ht 157.5 cm; Wt 62.5 kg
[2017-10-25 10:38] LABS: HEMOGLOBIN 12.5 g/dL (12.0-16.0); MEAN CELL VOLUME 99.4 fL (80-100); MEAN CORPUSCULAR HEMOGLOBIN 34.5 pg (25-34); MEAN CORPUSCULAR HGB CONC 34.7 g/dl (32-36); MEAN PLATELET VOLUME 8.6 fL (7.4-10.4); PLATELET COUNT 334 K/uL (130-400); RED CELL DISTRIBUTION WIDTH CV 12.5 % (11.5-14.5); RED CELL DISTRIBUTION WIDTH SD 45.8 fL (36.4-46.3); WHITE BLOOD COUNT 11.43 K/uL (4.8-10.8)
[2017-10-25 10:56] LABS: CALCIUM 9.3 mg/dl (8.5-10.1); CREATININE 0.99 mg/dl (0.60-1.20); POTASSIUM 4.6 mmol/L (3.5-5.1)
[2017-10-25 11:02] LABS: BASO % 0.3 %; BASO ABS # 0.03 K/uL (0-0.2); EOS % 0.9 %; IG# 0.09 K/uL (0.00-0.02); LYMPH % 8.2 %; LYMPH ABS # 0.94 K/uL (1.2-3.4); MONO ABS # 1.49 K/uL (0.11-0.59); NEUT % 76.8 %; NEUT ABS # 8.78 K/uL (1.4-6.5)
--- NOTE | 2017-10-25 11:16 | DIAGNOSTIC IMAGING REPORT ---
CT SCAN OF THE BRAIN WITHOUT IV CONTRAST CLINICAL HISTORY: Falls. COMPARISON STUDY: CT of the brain dated 11/30/2016. TECHNIQUE: Unenhanced axial CT scan of the brain is performed from the vertex to the skull base. A dose lowering technique was utilized adhering to the principles of ALARA. FINDINGS: Brain parenchyma: There are age-related involutional changes noting moderate to advanced confluent subcortical and periventricular microangiopathic change. 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 There is no hemorrhage, mass effect, or evidence of acute territorial ischemia by CT criteria. Rahman-white matter is preserved. No extra-axial fluid collection is seen. Ventricles, sulci, cisterns: Prominent secondary to involutional change. Intracranial vasculature: There is atherosclerotic calcification of the cavernous carotid and vertebral arteries. Calvarium: The skeletal structures are osteopenic. No depressed calvarial fracture is seen. Sinuses and mastoids: The visualized paranasal sinuses are clear. The mastoid air cells are well pneumatized. Orbits: The bony orbits are grossly intact. There are bilateral ocular lens implants. IMPRESSION: Senescent changes as above with no hemorrhage, mass effect, or evidence of acute territorial ischemia by CT criteria. Electronically signed by: Abebe Vyas M.D. 10/25/2017 11:14 AM Dictated Date/Time: 10/25/2017 11:12 AM
--- NOTE | 2017-10-25 11:28 | DIAGNOSTIC IMAGING REPORT ---
CERVICAL SPINE W/O CLINICAL HISTORY: 82 years-old Female presenting with recurrent falls, history of Parkinson's, evaluate for trauma. TECHNIQUE: Multidetector CT of the cervical spine was performed without the use of intravenous contrast. IV contrast: None. A dose lowering technique was used consistent with the principles of ALARA (as low as reasonably achievable). COMPARISON: 11/30/2016. CT DOSE (mGy.cm): The estimated cumulative dose is 881.30 mGy.cm. FINDINGS: Record Retrieval Specialist topogram: Unremarkable. Straightening of normal cervical lordosis likely due to multilevel degenerative changes. The now chronic fracture through the base of the dens is redemonstrated. This demonstrates 2 mm of anterior displacement of the odontoid fracture fragment. There is also resulting 4 mm of anterior displacement of the posterior arch of C1 relative to C2 mildly narrowing the spinal canal. These findings are stable to slightly worsened from prior exam. There is no significant osseous bridging at the fracture plane. There has been interval partial fusion of the odontoid fracture fragment with the anterior arch of C1. Redemonstration of the superior endplate deformity of T3, unchanged and consistent with chronic minimal fracture deformity. Vertebral bodies maintain normal height. Stable 3 mm of grade 1 anterolisthesis of C3 on C4 and 2 mm of grade 1 anterolisthesis of C7 on T1. Facet arthropathy evident. No acute fracture. Multilevel osseous neural foraminal narrowing. Skull base intact. Lung apices clear. Soft tissues of the neck within normal limits. Atherosclerosis. Limited intracranial evaluation within normal limits. IMPRESSION: 1. 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 Anterior displacement of the odontoid fracture fragment with resulting 4 mm of anterior displacement of the posterior arch of C1 relative to C2 mildly narrowing the spinal canal. This is stable to slightly worsened from the prior exam. 2. Multilevel degenerative changes. 3. No acute osseous injury. Electronically signed by: Jhony Schmitz M.D. 10/25/2017 11:27 AM Dictated Date/Time: 10/25/2017 11:12 AM
--- NOTE | 2017-10-25 11:49 | DIAGNOSTIC IMAGING REPORT ---
PELVIS 1 OR 2 VIEW ROUTINE CLINICAL HISTORY: Pain status post trauma COMPARISON STUDY: July 26, 2016 FINDINGS: No fractures are visualized. There are vascular calcifications present. Degenerative changes are present within the lumbar spine. There is no SI joint diastases. There is no symphysis diastases. IMPRESSION: No fractures identified. Electronically signed by: Shawn Engel M.D. 10/25/2017 11:48 AM Dictated Date/Time: 10/25/2017 11:47 AM
--- NOTE | 2017-10-25 11:52 | DIAGNOSTIC IMAGING REPORT ---
RIGHT SHOULDER 3 VIEWS; RIGHT HUMERUS 2 VIEWS CLINICAL HISTORY: Fall with right arm pain. FINDINGS: 3 views of the right shoulder with AP and lateral views of the right humerus are obtained. No prior studies are available for comparison at the time of dictation. The skeletal structures are osteopenic. There is no radiographic evidence of fracture or dislocation in the right shoulder. There is no radiographic evidence of right humeral fracture. There is advanced arthritic change at the glenohumeral articulation with significant bony sclerosis along the humeral head and the glenoid. Superior subluxation of the humeral head with loss of the subacromial space is consistent with chronic rotator cuff injury. Productive degenerative change is seen at the acromioclavicular joint. A calcified joint body is noted in the right shoulder. The right elbow joint is grossly intact. The overlying soft tissues are normal in appearance. The imaged right lung parenchyma appears clear. IMPRESSION: 1. There is no radiographic evidence of fracture or dislocation involving the right shoulder. 2. There is no radiographic evidence of right humeral fracture. 3. Osteopenia and advanced degenerative change as above. Electronically signed by: Abebe Vyas M.D. 10/25/2017 11:51 AM Dictated Date/Time: 10/25/2017 11:49 AM
--- NOTE | 2017-10-25 11:53 | DIAGNOSTIC IMAGING REPORT ---
CHEST 2 VIEWS ROUTINE CLINICAL HISTORY: 82 years-old Female presenting with fever 101 cough rales b/l bases. TECHNIQUE: AP and lateral views of the chest were obtained. COMPARISON: 03/10/2017. FINDINGS: Atherosclerosis of aortic arch. Cardiac silhouette enlarged. Main pulmonary artery is enlarged. Lungs and pleural spaces clear. Degenerative changes of the thoracic spine. Upper abdomen normal. IMPRESSION: 1. Cardiomegaly. No other convincing evidence of acute cardiopulmonary disease. Electronically signed by: Jhony Schmitz M.D. 10/25/2017 11:52 AM Dictated Date/Time: 10/25/2017 11:51 AM
--- NOTE | 2017-10-25 14:36 | EMERGENCY ROOM VISIT NOTE ---
History Report prepared by Diana: Amadeo Marshall Under the Supervision of: Dr. Mario Stewart M.D. First contact with patient: 09:53 Chief Complaint: FALL Stated Complaint: FALL History of Present Illness The patient is a 82 year old female who presents to the Emergency Room with complaints of constant right shoulder pain s/p fall occurring a few days ago. She states that she fell in between her dresser and bed a few days ago. The patient states that she fell again today prompting her visit to the ED. She states that she hit her right shoulder on both falls. Her pain worsens with movement. The patient has a history of Parkinson's. She notes that she also had a fever of 101 degrees recently. She also complains of a productive cough. The patient's cough produces a clear sputum (previously yellow). She denies abdominal pain, chest pain or SOB. She has a history of chronic bronchitis and is worried she may have it again. Source of History: patient Onset: A few days ago Position: shoulder (right) Timing: constant Modifying Factors (Worsening): movement Associated Symptoms: + fevers (101 degrees), + cough (produces clear sputum) , No chest pain, No SOB, No abdominal pain Review of Systems See HPI for pertinent positives and negatives. A total of ten systems were reviewed and were otherwise negative. Past Medical & Surgical Medical Problems: (1) Asthma, Unspecified (2) C2 cervical fracture (3) Depressive Disorder Nec (4) Diab Leticia Wo Compl, Type Ii Or Unspec Type, Not Uncntrld (5) Esophageal Reflux (6) Hyperlipidemia Nec/Nos (7) Hypertension Nos (8) Parkinson disease (9) Pneumonia (10) Slurring of speech Family History Gallbladder disease Heart disease Hypertension Kidney disease Kidney stones Social History Smoking Status: Former Smoker Alcohol Use: none Drug Use: none Marital Status: Housing Status: lives with family Occupation Status: retired Current/Historical Medications Scheduled Carbidopa/Levodopa (Sinemet 25MG/100MG), 2 TABS PO QID Clopidogrel Bisulfate (Clopidogrel), 75 MG PO QAM Cyanocobalamin (B-12), 1,000 MCG PO DAILY Ferrous Sulfate (Ferrous Sulfate), 325 MG PO BIDM Fluticasone Prop/Salmeterol (Advair Diskus 250/50 60 Dose), 1 PUFF INH BID Folic Acid (Folic Acid), 1 MG PO QAM Melatonin (Melatonin), 3 MG PO HS Metoprolol Tartrate (Lopressor) (Lopressor), 25 MG PO BID Montelukast Sodium (Singulair), 10 MG PO HS Pantoprazole (Protonix), 40 MG PO DAILY Ropinirole HCl (Ropinirole HCl), 1 MG PO HS Sennosides-Docusate Sodium (Senna S), 1 TAB PO DAILY @ NOON Venlafaxine Hcl (Effexor Extended Rel), 75 MG PO DAILY@1200 Scheduled PRN Acetaminophen (Tylenol), 500 MG PO Q4 PRN for MILD PAIN/FEVER>101 Albuterol Hfa (Ventolin Hfa), 2 PUFFS INH Q6H PRN for BREATHING/ASTHMA Hydroxyzine HCl (Hydroxyzine HCl), 10 MG PO HS PRN for ITCHING/ANXIETY Tramadol HCl (Tramadol HCl), 50 MG PO Q6H PRN for Pain Triamcinolone Acet (Aristocort 0.1%), 1 APPLN TOP BID PRN for RASH Allergies Coded Allergies: Diphenhydramine (Verified Allergy, Severe, SWELLING IN THROAT, 10/25/17) Iodine (Verified Allergy, Severe, THROAT SWELLING, 10/25/17) Shellfish (Verified Allergy, Severe, ANAPHYLAXIS AND FULL BODY HIVES, 10/25) Ciprofloxacin (Verified Allergy, Intermediate, HIVES FULL BODY, 10/25/17) Latex1 -Allergic Contact Dermititis (Verified Allergy, Intermediate, DERMATITIS, 10/25/17) Quinine (Verified Allergy, Intermediate, HIVES, 10/25/17) Triprolidine (Verified Allergy, Intermediate, HIVES, ASTHMA EXACERBATION, 10/25/17) Physical Exam Vital Signs Date Time Temp Pulse Resp B/P (MAP) Pulse Ox O2 Delivery O2 Flow Rate FiO2 10/25/17 15:22 123 18 165/96 96 10/25/17 13:35 102 18 150/90 98 Room Air 10/25/17 09:48 97 10/25/17 09:35 37.1 102 20 113/63 95 Room Air Physical Exam Physical Exam GENERAL: She is oriented to person, place, and time. She appears well- developed and well-nourished. She does not appear distressed. ____ HENT: Exam performed. Head: Normocephalic and atraumatic. Right Ear: External ear normal. No mastoid tenderness. Left Ear: External ear normal. No mastoid tenderness. Mouth/Throat: The oropharynx is clear and moist. No trismus in the jaw. No dental abscesses or uvula swelling. No oropharyngeal exudate or tonsillar abscesses. ____ EYES: Conjunctivae and EOM are normal. Pupils are equal, round, and reactive to light. Right eye exhibits no discharge. Left eye exhibits no discharge. No scleral icterus. ____ NECK: Normal range of motion. Neck supple. No JVD present. No spinous process tenderness present. No carotid bruit present. No rigidity. No tracheal deviation and normal range of motion present. No Brudzinski's sign and no Kernig 's sign noted. ____ CV: Normal rate, regular rhythm, normal heart sounds and intact distal pulses. There is no peripheral edema. Palpable radial pulses bue. ____ PULM/CHEST: Rales at the bases bilaterally. No respiratory distress. No stridor. She has no wheezes. Chest Wall: She exhibits no tenderness. ____ ABD: The abdomen is soft. Bowel sounds are normal. She has no distension. No mass is present. There is no tenderness. There is no rebound, no guarding, no Valencia's sign and no tenderness at McBurney's point. Rovsig negative MUSC/SKEL: Pain to palpation over the right clavicle and right shoulder area. Pain with active ROM of shoulder. Full range of passive motion. Full ROM of right elbow. There is no peripheral edema, tenderness or deformity. LYMPH: No cervical adenopathy. ____ NEURO: She is alert and oriented to person, place, and time. She has normal strength. No cranial nerve deficit or sensory deficit. Coordination and gait normal. GCS eye subscore is 4. GCS verbal subscore is 5. GCS motor subscore is 6. Cerebellar tests wnl. ____ SKIN: Skin is warm and dry. She is not diaphoretic. ____ PSYCH: She has a normal mood and affect. Her behavior is normal. Judgment and thought content normal. ____ Medical Decision & Procedures ER Provider Diagnostic Interpretation: Radiology results as stated below per my review and radiologist interpretation: RIGHT SHOULDER 3 VIEWS; RIGHT HUMERUS 2 VIEWS FINDINGS: 3 views of the right shoulder with AP and lateral views of the right humerus are obtained. No prior studies are available for comparison at the time of dictation. The skeletal structures are osteopenic. There is no radiographic evidence of fracture or dislocation in the right shoulder. There is no radiographic evidence of right humeral fracture. There is advanced arthritic change at the glenohumeral articulation with significant bony sclerosis along the humeral head and the glenoid. Superior subluxation of the humeral head with loss of the subacromial space is consistent with chronic rotator cuff injury. Productive degenerative change is seen at the acromioclavicular joint. A calcified joint body is noted in the right shoulder. The right elbow joint is grossly intact. The overlying soft tissues are normal in appearance. The imaged right lung parenchyma appears clear. IMPRESSION: 1. There is no radiographic evidence of fracture or dislocation involving the right shoulder. 2. There is no radiographic evidence of right humeral fracture. 3. Osteopenia and advanced degenerative change as above. Electronically signed by: Abebe Vyas M.D. 10/25/2017 11:51 AM PELVIS 1 OR 2 VIEW ROUTINE FINDINGS: No fractures are visualized. There are vascular calcifications present. Degenerative changes are present within the lumbar spine. There is no SI joint diastases. There is no symphysis diastases. IMPRESSION: No fractures identified. Electronically signed by: Shawn Engel M.D. 10/25/2017 11:48 AM RIGHT SHOULDER 3 VIEWS; RIGHT HUMERUS 2 VIEWS FINDINGS: 3 views of the right shoulder with AP and lateral views of the right humerus are obtained. No prior studies are available for comparison at the time of dictation. The skeletal structures are osteopenic. There is no radiographic evidence of fracture or dislocation in the right shoulder. There is no radiographic evidence of right humeral fracture. There is advanced arthritic change at the glenohumeral articulation with significant bony sclerosis along the humeral head and the glenoid. Superior subluxation of the humeral head with loss of the subacromial space is consistent with chronic rotator cuff injury. Productive degenerative change is seen at the acromioclavicular joint. A calcified joint body is noted in the right shoulder. The right elbow joint is grossly intact. The overlying soft tissues are normal in appearance. The imaged right lung parenchyma appears clear. IMPRESSION: 1. There is no radiographic evidence of fracture or dislocation involving the right shoulder. 2. There is no radiographic evidence of right humeral fracture. 3. Osteopenia and advanced degenerative change as above. Electronically signed by: Abebe Vyas M.D. 10/25/2017 11:51 AM CHEST 2 VIEWS ROUTINE FINDINGS: Atherosclerosis of aortic arch. Cardiac silhouette enlarged. Main pulmonary artery is enlarged. Lungs and pleural spaces clear. Degenerative changes of the thoracic spine. Upper abdomen normal. IMPRESSION: 1. Cardiomegaly. No other convincing evidence of acute cardiopulmonary disease. Electronically signed by: Jhony Schmitz M.D. 10/25/2017 11:[address] SCAN OF THE BRAIN WITHOUT IV CONTRAST FINDINGS: Brain parenchyma: There are age-related involutional changes noting moderate to advanced confluent subcortical and periventricular microangiopathic change. 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 There is no hemorrhage, mass effect, or evidence of acute territorial ischemia by CT criteria. Rahman-white matter is preserved. No extra-axial fluid collection is seen. Ventricles, sulci, cisterns: Prominent secondary to involutional change. Intracranial vasculature: There is atherosclerotic calcification of the cavernous carotid and vertebral arteries. Calvarium: The skeletal structures are osteopenic. No depressed calvarial fracture is seen. Sinuses and mastoids: The visualized paranasal sinuses are clear. The mastoid air cells are well pneumatized. Orbits: The bony orbits are grossly intact. There are bilateral ocular lens implants. IMPRESSION: Senescent changes as above with no hemorrhage, mass effect, or evidence of acute territorial ischemia by CT criteria. Electronically signed by: Abebe Vyas M.D. 10/25/2017 11:14 AM CERVICAL SPINE W/O FINDINGS: Slag Motor Operator topogram: Unremarkable. Straightening of normal cervical lordosis likely due to multilevel degenerative changes. The now chronic fracture through the base of the dens is redemonstrated. This demonstrates 2 mm of anterior displacement of the odontoid fracture fragment. There is also resulting 4 mm of anterior displacement of the posterior arch of C1 relative to C2 mildly narrowing the spinal canal. These findings are stable to slightly worsened from prior exam. There is no significant osseous bridging at the fracture plane. There has been interval partial fusion of the odontoid fracture fragment with the anterior arch of C1. Redemonstration of the superior endplate deformity of T3, unchanged and consistent with chronic minimal fracture deformity. Vertebral bodies maintain normal height. Stable 3 mm of grade 1 anterolisthesis of C3 on C4 and 2 mm of grade 1 anterolisthesis of C7 on T1. Facet arthropathy evident. No acute fracture. Multilevel osseous neural foraminal narrowing. Skull base intact. Lung apices clear. Soft tissues of the neck within normal limits. Atherosclerosis. Limited intracranial evaluation within normal limits. IMPRESSION: 1. 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 Anterior displacement of the odontoid fracture fragment with resulting 4 mm of anterior displacement of the posterior arch of C1 relative to C2 mildly narrowing the spinal canal. This is stable to slightly worsened from the prior exam. 2. Multilevel degenerative changes. 3. No acute osseous injury. Electronically signed by: Jhony Schmitz M.D. 10/25/2017 11:27 AM Laboratory Results 10/25/17 10:30 Red Blood Count 3.62, Mean Corpuscular Volume 99.4, Mean Corpuscular Hemoglobin 34.5, Mean Corpuscular Hemoglobin Concent 34.7, Mean Platelet Volume 8.6, Neutrophils (%) (Auto) 76.8, Lymphocytes (%) (Auto) 8.2, Monocytes (%) (Auto) 13.0, Eosinophils (%) (Auto) 0.9, Basophils (%) (Auto) 0.3, Neutrophils # (Auto ) 8.78, Lymphocytes # (Auto) 0.94, Monocytes # (Auto) 1.49, Eosinophils # (Auto ) 0.10, Basophils # (Auto) 0.03 10/25/17 10:30 Test 10/25/17 10:30 10/25/17 10:45 White Blood Count 11.43 K/uL (4.8-10.8) Red Blood Count 3.62 M/uL (4.2-5.4) Hemoglobin 12.5 g/dL (12.0-16.0) Hematocrit 36.0 % (37-47) Mean Corpuscular Volume 99.4 fL (80-100) Mean Corpuscular Hemoglobin 34.5 pg (25-34) Mean Corpuscular Hemoglobin Concent 34.7 g/dl (32-36) Platelet Count 334 K/uL (130-400) Mean Platelet Volume 8.6 fL (7.4-10.4) Neutrophils (%) (Auto) 76.8 % Lymphocytes (%) (Auto) 8.2 % Monocytes (%) (Auto) 13.0 % Eosinophils (%) (Auto) 0.9 % Basophils (%) (Auto) 0.3 % Neutrophils # (Auto) 8.78 K/uL (1.4-6.5) Lymphocytes # (Auto) 0.94 K/uL (1.2-3.4) Monocytes # (Auto) 1.49 K/uL (0.11-0.59) Eosinophils # (Auto) 0.10 K/uL (0-0.5) Basophils # (Auto) 0.03 K/uL (0-0.2) RDW Standard Deviation 45.8 fL (36.4-46.3) RDW Coefficient of Variation 12.5 % (11.5-14.5) Immature Granulocyte % (Auto) 0.8 % Immature Granulocyte # (Auto) 0.09 K/uL (0.00-0.02) Anion Gap 3.0 mmol/L (3-11) Est Creatinine Clear Calc Drug Dose 38.1 ml/min Estimated GFR () 61.5 Estimated GFR (Non- 53.1 BUN/Creatinine Ratio 22.7 (10-20) Calcium Level 9.3 mg/dl (8.5-10.1) Urine Color YELLOW Urine Appearance CLEAR (CLEAR) Urine pH 5.5 (4.5-7.5) Urine Specific [place] 1.021 (1.000-1.030) Urine Protein TRACE (NEG) Urine Glucose (UA) NEG (NEG) Urine Ketones NEG (NEG) Urine Occult Blood NEG (NEG) Urine Nitrite NEG (NEG) Urine Bilirubin NEG (NEG) Urine Urobilinogen NEG (NEG) Urine Leukocyte Esterase TRACE (NEG) Urine WBC (Auto) 1-5 /hpf (0-5) Urine RBC (Auto) 5-10 /hpf (0-4) Urine Hyaline Casts (Auto) 1-5 /lpf (0-5) Urine Epithelial Cells (Auto) 5-10 /lpf (0-5) Urine Bacteria (Auto) NEG (NEG) Laboratory results reviewed by ca ED Course 1008: The patient was evaluated in room B11B. A complete history and physical exam was performed. She declines pain medication at this time. 1332: Discussed the patient's case with Dr. Gee. She states that there is nothing to do, and the patient can be discharged home. 1355: Patient's vital signs are stable. Labs and imaging within normal limits. Discussed case with Dr. Gee who feels there is no acute intervention necessary. Patient will be discharged for follow-up. DISCHARGE - Plan of care discussed with patient and questions answered. The patient was given both verbal and printed discharge instructions. The patient verbalized understanding and ability to comply. The patient is to seek outpatient follow up as noted in the discharge instructions. The patient verbalized understanding and ability to comply. The patient is discharged in stable condition. The patient was instructed to return for worsening symptoms. Medical Decision Patient's vital signs are stable. Labs and imaging within normal limits. Discussed case with Dr. Gee who feels there is no acute intervention necessary. Patient will be discharged for follow-up. DISCHARGE - Plan of care discussed with patient and questions answered. The patient was given both verbal and printed discharge instructions. The patient verbalized understanding and ability to comply. The patient is to seek outpatient follow up as noted in the discharge instructions. The patient verbalized understanding and ability to comply. The patient is discharged in stable condition. The patient was instructed to return for worsening symptoms. Medication Reconcilliation Current Medication List: was personally reviewed by me Blood Pressure Screening Patient's blood pressure: Normal blood pressure Blood pressure disposition: Did not require urgent referral Consults Time Called: 1300 Consulting Physician: Néstor Snow PA-C - Orthopedics Returned Call: 1306 Discussed the patient's case. Néstor Snow PA-C recommends consulting Dr. Gee. Additional Consults: Time Called: 1310 Consulted Physician: Dr. Gee - Orthopedics Returned Call: [phone] Additional Comments: Discussed the patient's case. Dr. Gee states that there is nothing to do, and the patient can be discharged home. Impression Primary Impression: Fall Scribe Attestation The scribe's documentation has been prepared under my direction and personally reviewed by me in its entirety. I confirm that the note above accurately reflects all work, treatment, procedures, and medical decision making performed by me. The chart was completed utilizing [employer] Speech voice recognition software. Grammatical errors, random word insertions, pronoun errors, and incomplete sentences are an occasional consequence of this system due to software limitations, ambient noise, and hardware issues. Any formal questions or concerns about the content, text, or information contained within the body of this dictation should be directly addressed to the physician for clarification. Departure Information Dispostion Home / Self-Care Referrals [facility] (PCP) Forms HOME CARE DOCUMENTATION FORM, IMPORTANT VISIT INFORMATION Patient Instructions ED Prevention Fall, My [facility] [place] [facility] Problem Qualifiers Primary Impression: Fall Encounter type: initial encounter Qualified Codes: W19.XXXA - Unspecified fall, initial encounter
[2017-10-25 15:22] VITALS: BP 165/96; PULSE 123; O2SAT 96
== END 2017-10-25 15:23 | disposition home or self-care (01) ==
LOC: EDBD 09:28 → C.EDB 09:32
DX: M25.511 Pain in right shoulder (principal); W19.XXXA Unspecified fall, initial encounter; R09.89 Other specified symptoms and signs involving the circulatory and respiratory systems; G20 Parkinson's disease; J45.909 Unspecified asthma, uncomplicated; I10 Essential (primary) hypertension; F32.9 Major depressive disorder, single episode, unspecified; Z79.02 Long term (current) use of antithrombotics/antiplatelets; Z86.39 Personal history of other endocrine, nutritional and metabolic disease; Z87.891 Personal history of nicotine dependence; Z88.6 Allergy status to analgesic agent; Z91.013 Allergy to seafood; Z88.1 Allergy status to other antibiotic agents; Z91.040 Latex allergy status; Z88.8 Allergy status to other drugs, medicaments and biological substances

== ENCOUNTER 2017-11-23 13:34 | Inpatient (IN) | payer OTHER ==
[~2017-11-23] VITALS: Ht 160 cm; Wt 56.2 kg
[2017-11-23] MEDS ORDERED: SODIUM CHLORIDE 0.9% 1000ML 1,000 ML IV SCH (14:07)
[2017-11-23] MEDS ORDERED: METOCLOPRAMIDE HCL INJ 5 MG/ML 2 ML VIAL IV PRN (14:15)
[2017-11-23] MEDS ORDERED: ONDANSETRON INJ 2 MG/ML 2 ML VIAL IV PRN (14:15)
--- NOTE | 2017-11-23 14:39 | History and Physical ---
History & Physical Date Nov 23, 2017. Chief Complaint Right shoulder pain History of Present Illness The patient is a 82 year old female with complaints of right shoulder pain. She has a hx of Parkinson's and has been having multiple falls recently. I saw her in my office on Monday. X-rays were negative for fracture but she had significant pain, swelling and bruising. I sent her for a CT scan which was done this AM. The CT scan showed gas lateral and anterior to the deltoid. Her senior care was contacted and she has been brought to the ER. She complains of pain in her shoulder but no fevers or chills. Past Medical/Surgical History Medical Problems: (1) Asthma, Unspecified (2) C2 cervical fracture (3) Depressive Disorder Nec (4) Diab Leticia Wo Compl, Type Ii Or Unspec Type, Not Uncntrld (5) Esophageal Reflux (6) Hyperlipidemia Nec/Nos (7) Hypertension Nos (8) Infection of shoulder (9) Parkinson disease (10) Pneumonia (11) Slurring of speech Allergies Coded Allergies: Diphenhydramine (Verified Allergy, Severe, SWELLING IN THROAT, 10/25/17) Iodine (Verified Allergy, Severe, THROAT SWELLING, 10/25/17) Shellfish (Verified Allergy, Severe, ANAPHYLAXIS AND FULL BODY HIVES, 10/25) Ciprofloxacin (Verified Allergy, Intermediate, HIVES FULL BODY, 10/25/17) Latex1 -Allergic Contact Dermititis (Verified Allergy, Intermediate, DERMATITIS, 10/25/17) Quinine (Verified Allergy, Intermediate, HIVES, 10/25/17) Triprolidine (Verified Allergy, Intermediate, HIVES, ASTHMA EXACERBATION, 10/25/17) Home Medications Scheduled Carbidopa/Levodopa (Sinemet 25MG/100MG), 2 TABS PO QID Clopidogrel Bisulfate (Clopidogrel), 75 MG PO QAM Cyanocobalamin (B-12), 1,000 MCG PO DAILY Ferrous Sulfate (Ferrous Sulfate), 325 MG PO BIDM Fluticasone Prop/Salmeterol (Advair Diskus 250/50 60 Dose), 1 PUFF INH BID Folic Acid (Folic Acid), 1 MG PO QAM Melatonin (Melatonin), 3 MG PO HS Metoprolol Tartrate (Lopressor) (Lopressor), 25 MG PO BID Montelukast Sodium (Singulair), 10 MG PO HS Pantoprazole (Protonix), 40 MG PO DAILY Ropinirole HCl (Ropinirole HCl), 1 MG PO HS Sennosides-Docusate Sodium (Senna S), 1 TAB PO DAILY @ NOON Venlafaxine Hcl (Effexor Extended Rel), 75 MG PO DAILY@1200 Scheduled PRN Acetaminophen (Tylenol), 500 MG PO Q4 PRN for MILD PAIN/FEVER>101 Albuterol Hfa (Ventolin Hfa), 2 PUFFS INH Q6H PRN for BREATHING/ASTHMA Hydroxyzine HCl (Hydroxyzine HCl), 10 MG PO HS PRN for ITCHING/ANXIETY Tramadol HCl (Tramadol HCl), 50 MG PO Q6H PRN for Pain Triamcinolone Acet (Aristocort 0.1%), 1 APPLN TOP BID PRN for RASH Physical Examination Skin: warm/dry Eyes: normal inspection ENT: normal ENT inspection Head: normocephalic Neck: supple Respiratory/Chest: + pertinent finding (coughing) Cardiovascular: no edema Extremities: + pertinent finding (Right shoulder: Swelling over with AC joint and lateral deltoid, minimal erythema, bruisng present, pain with ROM) Diagnosis Right shoulder septic arthritis with gas producing organism Plan of Treatment Shoulder was aspirated in the ED, gross pus aspirated She ate at about 11, will wait until appropriate NPO status then will I&D Medicine consulted for management and pre-op clearance ID consulted - plan Vanco and Zosyn for abx. Will give once intra op cx's taken Labs, EKG, CXR pending
[2017-11-23] MEDS ORDERED: VANCOMYCIN CONSULT ACTIVE PRN (14:45)
[2017-11-23] MEDS ORDERED: PIPERACILL/TAZOBAC CONSULT ACTIVE PRN (14:45)
[2017-11-23] MEDS ORDERED: LEVALBUTEROL/IPRATROPIUM NEB INH PRN (15:45)
[2017-11-23] MEDS ORDERED: hydrOXYzine HCL 10 MG TAB PO PRN (15:45)
[2017-11-23] MEDS ORDERED: LEVALBUTEROL 1.25MG/0.5ML NEB INH PRN (16:00)
[2017-11-23] MEDS ORDERED: IPRATROPIUM BROMIDE NEB SOLN 0.02% 2.5 ML VIAL INH PRN (16:00)
[2017-11-23 16:15] VITALS: BP 158/94; PULSE 92; TEMP 36.9; O2SAT 95
[2017-11-23 16:21] LABS: BASO % 0.4 %; BASO ABS # 0.05 K/uL (0-0.2); EOS % 5.6 %; EOS ABS # 0.64 K/uL (0-0.5); HEMATOCRIT 32.9 % (37-47); IG# 0.39 K/uL (0.00-0.02); LYMPH % 18.1 %; LYMPH ABS # 2.09 K/uL (1.2-3.4); MEAN CELL VOLUME 97.1 fL (80-100); MEAN CORPUSCULAR HEMOGLOBIN 32.4 pg (25-34); MEAN CORPUSCULAR HGB CONC 33.4 g/dl (32-36); MEAN PLATELET VOLUME 8.2 fL (7.4-10.4); MONO % 8.9 %; MONO ABS # 1.03 K/uL (0.11-0.59); NEUT % 63.6 %; NEUT ABS # 7.32 K/uL (1.4-6.5); PLATELET COUNT 539 K/uL (130-400); RED CELL DISTRIBUTION WIDTH CV 12.7 % (11.5-14.5); RED CELL DISTRIBUTION WIDTH SD 44.9 fL (36.4-46.3); WHITE BLOOD COUNT 11.52 K/uL (4.8-10.8)
[2017-11-23] MEDS ORDERED: PIPERACILL/TAZOBAC IV 3.375 GM in DEXTROSE 5% 100ML 100 ML IV SCH (16:30)
[2017-11-23 16:46] LABS: ALBUMIN 2.2 gm/dl (3.4-5.0); ALKALINE PHOSPHATASE 130 U/L (45-117); ALT/SGPT < 6 U/L (12-78); AST/SGOT 17 U/L (15-37); BLOOD UREA NITROGEN 23 mg/dl (7-18); CALCIUM 9.2 mg/dl (8.5-10.1); CARBON DIOXIDE 27 mmol/L (21-32); CREATININE 0.83 mg/dl (0.60-1.20); GLUCOSE 94 mg/dl (70-99); PHOSPHORUS 3.2 mg/dl (2.5-4.9); POTASSIUM 4.4 mmol/L (3.5-5.1); SODIUM 135 mmol/L (136-145); TOTAL PROTEIN 7.9 gm/dl (6.4-8.2)
[2017-11-23] MEDS ORDERED: VANCOMYCIN HCL 1000MG/20ML VIAL ONE (16:53)
[2017-11-23] MEDS ORDERED: GENTAMICIN SULFATE 40 MG/ML 2 ML VIAL ONE (16:53)
--- NOTE | 2017-11-23 16:54 | Medical Consult ---
Consultation Date of Consultation: Nov 23, 2017. Attending Physician: Reason for Consultation: Medical management and pre-op evaluation History of Present Illness Pt is 82 y/o F with PMH Parkinson, HTN, asthma, anxiety, GERD,'s, chronic anemia , atopic dermatitis, dementia, history CVA seen in medical consult for preoperative evaluation medical management. Patient with history of recurrent falls in the past and last week went to [facility] and denies any falls since at [facility]. She uses walker to ambulate. Patient reports has been having right shoulder pain since previous fall, aggravated with ROM and noted edema to R shoulder. Reported xray R shoulder negative for fracture. Following with ortho- Dr Shaw. Patient had CT right shoulder today which showed gas patient was referred to ER. In ER Dr Shaw aspirated R shoulder and positive for pus and plan is for surgical drainage. It is reported the patient had temp of 100F 6 days ago and has had 99F temp since. Pt states several days ago had urinary urgency. Had negative urine culture 11/22/17. She reports no further urinary symptoms. Pt reports couple of weeks ago with yellow productive cough and some SOB which she reports has since resolved. Hx CVA in past, pt on Plavix. She denies cardiac hx, hx CHF, or arrhythmias. Hx echo 08/26 : EF: 50%, grade 1 diastolic dysfunction, mild-moderate mitral regurgitation, moderate hypokineses inferior and posterior LV wall. Denies chills, diaphoresis , N/V/D/C, VILLA, dizziness, syncope, vision changes, neck pain, CP, orthopnea, palpitations, hemoptysis, sore throat, choking, otalgia, rhinorrhea, abdominal pain, paresthesias, extremity edema, rashes, hematuria, dysuria, weight changes pt had out patient labs on 11/23/17: WBC: WNL. Plt: 768, Cr: 0.7 Past Medical/Surgical History Medical Problems: (1) Anxiety Status: Chronic (2) Asthma, Unspecified Status: Chronic (3) Bronchitis Status: Resolved (4) C2 cervical fracture Status: Resolved (5) Depressive Disorder Nec Status: Chronic (6) Diab Leticia Wo Compl, Type Ii Or Unspec Type, Not Uncntrld Status: Chronic (7) Dyspnea Status: Resolved (8) Esophageal Reflux Status: Chronic (9) Hyperlipidemia Nec/Nos Status: Chronic (10) Hypertension Nos Status: Chronic (11) Parkinson disease Status: Chronic (12) Pneumonia Status: Resolved (13) Slurring of speech Status: Resolved (14) Third nerve palsy of right eye Status: Resolved (15) Vertigo Status: Resolved (16) Weakness Status: Resolved Surgical Problems: (1) Hx of hysterectomy Status: Resolved (2) Hx of tonsillectomy Status: Resolved Family History Gallbladder disease Heart disease Hypertension Kidney disease Kidney stones Social History Smoking Status: Former Smoker (quit 1963, smoked 1ppd x 2-5 years) Smokeless Tobacco Use: No Alcohol Use: none Drug Use: none Marital Status: Housing Status: other ([facility]) Occupation Status: retired Allergies Coded Allergies: Diphenhydramine (Verified Allergy, Severe, SWELLING IN THROAT, 11/23/17) Iodine (Verified Allergy, Severe, THROAT SWELLING, 11/23/17) Shellfish (Verified Allergy, Severe, ANAPHYLAXIS AND FULL BODY HIVES, 11/23) Ciprofloxacin (Verified Allergy, Intermediate, HIVES FULL BODY, 11/23/17) Latex1 -Allergic Contact Dermititis (Verified Allergy, Intermediate, DERMATITIS, 11/23/17) Quinine (Verified Allergy, Intermediate, HIVES, 11/23/17) Triprolidine (Verified Allergy, Intermediate, HIVES, ASTHMA EXACERBATION, 11/23/17) Home Medications Reported Home Medications Medications Dose Route/Sig Max Daily Dose Days Date Category Dose Instructions Folic Acid 1 Mg Tab 1 Mg PO QAM 12/03/16 Rx B-12 (Cyanocobalamin) 1,000 Mcg Sub 1,000 Mcg PO DAILY 12/03/16 Rx Tramadol HCl 50 Mg Tab 50 Mg PO Q6H PRN 12/03/16 Rx Lopressor (Metoprolol Tartrate) 25 Mg Tab 25 Mg PO BID 12/03/16 Rx Sinemet 25MG/100MG (Carbidopa/Levodopa) Tab 2 Tabs PO QID 11/30/16 Reported Advair Diskus 250/50 60 Dose (Fluticasone Prop/Salmeterol) 1 Ea Aerp 1 Puff INH BID 11/30/16 Reported Senna S (Sennosides-Docusate Sodium) 1 Tab Tab 1 Tab PO DAILY @ NOON 11/30/16 Reported Clopidogrel (Clopidogrel Bisulfate) 75 Mg Tab 75 Mg PO QAM 30 09/11/16 Rx Hydroxyzine HCl 10 Mg Tab 10 Mg PO HS PRN 09/05/16 Reported Tylenol (Acetaminophen) 500 Mg Tab 500 Mg PO Q4 PRN 09/05/16 Reported MAX 3GM/24HR Aristocort 0.1% (Triamcinolone Acet) 90 Appln/30 Gm Cr 1 Appln TOP BID PRN 09/05/16 Reported Effexor Extended Rel (Venlafaxine Hcl) 75 Mg Capcr 75 Mg PO DAILY@1200 09/05/16 Reported Ropinirole HCl 1 Mg Tab 1 Mg PO HS 30 07/31/16 Rx Ferrous Sulfate 325 Mg Tab 325 Mg PO BIDM 30 07/31/16 Rx Ventolin Hfa (Albuterol) 200 Puffs/68045 Mcg Aers 2 Puffs INH Q6H PRN 07/17/16 Reported Melatonin 3 Mg Tab 3 Mg PO HS 01/20/14 Reported Singulair (Montelukast Sodium) 10 Mg Tab 10 Mg PO HS 08/05/13 Reported Protonix (Pantoprazole Sodium) 40 Mg Tab 40 Mg PO DAILY 11/25/06 Reported Current Inpatient Medications Current Inpatient Medications Medications (Trade) Dose Ordered Sig/Joceline Route Start Time Stop Time Status Last Admin Dose Admin Metoclopramide HCl (Reglan Inj) 10 mg Q6H PRN IV 11/23/17 14:15 12/23/17 14:14 Ondansetron HCl (Zofran Inj) 4 mg Q6H PRN IV 11/23/17 14:15 12/23/17 14:14 Sodium Chloride 1,000 ml @ 75 mls/hr [id number] IV 11/23/17 14:07 12/23/17 14:06 Vancomycin HCl 1000 mg/Sodium Chloride 270 ml @ 125 mls/hr NOW STAT IV 11/23/17 14:40 11/23/17 16:49 UNV Miscellaneous Information (Consult) 1 ea UD PRN N/A 11/23/17 14:45 12/23/17 14:44 Piperacillin Sod/ Tazobactam Sod 3.375 gm/Dextrose 115 ml @ 200 mls/hr PREOP IV 11/24/17 06:00 11/25/17 05:59 UNV Miscellaneous Information (Consult) 1 ea UD PRN N/A 11/23/17 14:45 12/23/17 14:44 Review of Systems See HPI for pertinent positives & negatives. All other systems reviewed and were otherwise negative Physical Exam Date Time Temp Pulse Resp B/P (MAP) Pulse Ox O2 Delivery O2 Flow Rate FiO2 11/23/17 13:42 36.9 95 18 107/66 95 Room Air General Appearance: WD/WN, no apparent distress Head: normocephalic, atraumatic Eyes: normal inspection, sclerae normal ENT: hearing grossly normal, pharynx normal, + pertinent finding (mucous membranes moist) Neck: supple, no JVD, trachea midline Respiratory/Chest: lungs clear, normal breath sounds, no respiratory distress Cardiovascular: regular rate, rhythm, normal peripheral pulses Abdomen/GI: normal bowel sounds, non tender, soft Back: no CVA tenderness Extremities/Musculoskelatal: no calf tenderness, normal capillary refill, no pedal edema, + pertinent finding (right shoulder in sling with dressing in place without discharge noted on dressing, remaining extremities non-tender, baseline ROM intact) Neurologic/Psych: alert, normal mood/affect, oriented x 3 Skin: warm/dry (some scattered dry skin patches) Laboratory Results Last 24 Hours Test 11/23/17 14:00 11/23/17 15:55 11/23/17 16:36 Synovial Fluid Source OTHER Synovial Fluid Color YELLOW Synovial Fluid Appearance TURBID Synovial Fluid WBC 587351 /uL Synovial Fluid RBC 062268 /uL Synovial Fluid Polynuclear WBCs % 99.2 % Synovial Fluid Mononuclear WBCs % 0.8 % White Blood Count 11.52 K/uL Red Blood Count 3.39 M/uL Hemoglobin 11.0 g/dL Hematocrit 32.9 % Mean Corpuscular Volume 97.1 fL Mean Corpuscular Hemoglobin 32.4 pg Mean Corpuscular Hemoglobin Concent 33.4 g/dl Platelet Count 539 K/uL Mean Platelet Volume 8.2 fL Neutrophils (%) (Auto) 63.6 % Lymphocytes (%) (Auto) 18.1 % Monocytes (%) (Auto) 8.9 % Eosinophils (%) (Auto) 5.6 % Basophils (%) (Auto) 0.4 % Neutrophils # (Auto) 7.32 K/uL Lymphocytes # (Auto) 2.09 K/uL Monocytes # (Auto) 1.03 K/uL Eosinophils # (Auto) 0.64 K/uL Basophils # (Auto) 0.05 K/uL RDW Standard Deviation 44.9 fL RDW Coefficient of Variation 12.7 % Immature Granulocyte % (Auto) 3.4 % Immature Granulocyte # (Auto) 0.39 K/uL Prothrombin Time 10.6 SECONDS Prothromb Time International Ratio 1.0 Sodium Level 135 mmol/L Potassium Level 4.4 mmol/L Chloride Level 101 mmol/L Carbon Dioxide Level 27 mmol/L Anion Gap 7.0 mmol/L Blood Urea Nitrogen 23 mg/dl Creatinine 0.83 mg/dl Est Creatinine Clear Calc Drug Dose 43.2 ml/min Estimated GFR () 76.1 Estimated GFR (Non- 65.7 BUN/Creatinine Ratio 27.3 Random Glucose 94 mg/dl Calcium Level 9.2 mg/dl Phosphorus Level 3.2 mg/dl Magnesium Level 2.3 mg/dl Total Bilirubin 0.3 mg/dl Direct Bilirubin < 0.1 mg/dl Aspartate Amino Transf (AST/SGOT) 17 U/L Alanine Aminotransferase (ALT/SGPT) < 6 U/L Alkaline Phosphatase 130 U/L Total Protein 7.9 gm/dl Albumin 2.2 gm/dl Assessment & Plan R SHOULDER INFECTION Pt had reported CT R Shoulder today showing gas lateral and anterior to deltoid. In ER Dr Shaw aspirated R shoulder with +pus. Plan to take pt to OR this evening for drainage. Today pt afebrile, reported temp 100F 6 days ago. Today WBC:11.5. Pt moderate surgical risk. -pending synovial culture -pending blood cultures -vancomycin and Zosyn -ID consult -Pt NPO for now -pain management per ortho -wound management per ortho -PT/OT as appropriate -DVT prophylaxis per ortho -incentive spirometry -recommend monitor H&H for acute blood loss anemia after procedure PARKINSON'S -continue sinemet ASTHMA No current SOB or cough. pending CXR -continue Advair, montelukast -nebs prn HTN stable -continue lopressor DM II - DIET CONTROLLED glucose: 94 DM II diet HX CVA Pt on plavix, holding today, resume when appropriate per ortho ANXIETY/DEPRESSION -continue Effexor RLS -continue Requip GERD -continue PPI CHRONIC ANEMIA Hgb:11 (~baseline) -continue ferrous sulfate, folic acid, vitamin B12 DVT Prophylaxis -SCDs per ortho Disposition admit medsurg Full Code as per discussion with pt Follows with Dr Alfonso - Pauline Rhodes Hoffmeister for routine care Pt was seen with Dr Green. See addendum Pt will be followed by Dr Petersen during remaining hospital course ATTENDING ADDENDUM: Patient seen and examined care coordinated with Gretel Ibarra PA-C This is an 82-year-old female presented with right shoulder pain, fever CT of rt shoulder showed evidence of gas in shoulder joint between lateral and anterior to deltoid. Patient underwent I&D of right shoulder by orthopedics With drainage of copious amount of pus [facility] evaluation and postop medical management Patient tolerated the procedure well No fever or chills Has multiple drainage on right shoulder Reports of adequate pain control SEPTIC RIGHT SHOULDER Status post I AND D On empiric antibiotic with vancomycin Zosyn Surgical drainage specimen ordered for culture and Gram stain ID eval requested Patient may need long-term antibiotic-given the extent of infection on the right shoulder joint space Please refer to documentation by Gretel Ibarra PA-C for discussion of other issues Thank you for allowing to participate in the care of this patient We will continue to follow the patient during her hospital course Stella Green MD Additional Copies To Mariela Alfonso D.O.
[2017-11-23] MEDS ORDERED: BACITRACIN 50000 UNIT VIAL ONE ×2 (16:57→18:16)
[2017-11-23] MEDS: CARBIDOPA/LEVODOPA 25/100MG TAB PO SCH ×2 (17:00→21:57)
[2017-11-23] MEDS ORDERED: FENTANYL CITRATE INJ 50 MCG/1 ML 2 ML VIAL ONE (17:03)
[2017-11-23] MEDS ORDERED: NEOSTIGMINE METHYLSULFATE 5 MG/5 ML SYR ONE (17:03)
[2017-11-23] MEDS ORDERED: GLYCOPYRROLATE INJ 0.2 MG/ML VIAL ONE (17:03)
[2017-11-23] MEDS ORDERED: ONDANSETRON INJ 2 MG/ML 2 ML VIAL ONE (17:03)
[2017-11-23] MEDS ORDERED: PROPOFOL IV EMULSION 10 MG/ML 20 ML VIAL ONE (17:03)
[2017-11-23] MEDS ORDERED: LIDOCAINE HCL 2% 2 ML VIAL (20MG/ML) ONE (17:03)
[2017-11-23] MEDS ORDERED: DEXAMETHASONE SOD INJ 4 MG/ML VIAL ONE (17:03)
[2017-11-23] MEDS ORDERED: VANCOMYCIN IV 1,250 MG in SODIUM CHLORIDE 0.9% 250ML 250 ML IV ONE (17:30)
[2017-11-23] MEDS: FERROUS SULFATE 325 MG TAB PO SCH (17:45)
[2017-11-23] MEDS ORDERED: SUCCINYLCHOLINE 100MG/5ML SYR IV ONE (18:13)
[2017-11-23] MEDS ORDERED: PHENYLEPHRINE 100MCG/ML 5ML SYR ONE (18:23)
--- NOTE | 2017-11-23 18:57 | [facility] Operative Report ---
Operative Report Operative Date Nov 23, 2017. Pre-Operative Diagnosis right shoulder septic arthritis Post-Operative Diagnosis right shoulder septic arthritis Procedure(s) Performed Right Shoulder Incision and Drainage with stimulan bead placement Surgeon Dr. Jhony Shaw Straight Edger Surgeon(s) None Estimated Blood Loss 50ML Findings Deep infection within the glenohumeral joint as well as the acromioclavicul Specimens Micro: #1 right shoulder-gram stain, culture and sensitivity, aerobic, anaerobic #2 right shoulder acromioclavicular joint-gram stain, culture and sensitivity, aerobic, anaerobic Drains 2 Hemovacs into the glenohumeral joint and lateral deltoid space 1 to the A Anesthesia Type General Complication(s) none Disposition Recovery Room / PACU Indications The patient is an 82-year-old female with a history of Parkinson's disease. She has had numerous falls over the last several weeks. She is evaluated on Monday for concern for fracture as she has significant rotator cuff arthropathy with humeral head elevation and [id number] arthritis of the glenohumeral joint as well as with articulation of the humeral head onto the acromion. At that visit she had pain and swelling but no erythema. No fevers chills. I was concerned that she may have a nondisplaced fracture that was not seen on plain film. I sent her for CT scan. She was obtained this morning and it demonstrated gas within the lateral and anterior deltoid space. She was subsequently brought to the emergency room and aspiration was performed which elicited grossly purulent material. She presents for irrigation and debridement. Description of Procedure Risks, benefits and alternatives to surgery including, but not limited to, infection DVT, pain, stiffness, need for revision surgery, failure to relieve all symptoms, damage to blood vessels, damage to nerves, risk of anesthesia were discussed with the patient and her daughter and they wished to proceed. The patient was identified. Laterality was confirmed and marked. The patient received a preoperative antibiotic as well as an interscalene block. They were transferred to the operating room and placed in the supine position and induced into general endotracheal anesthesia per the anesthesia staff. The patient was then safely transferred to a slight beachchair position. All pressure points were well padded. The shoulder was prepped and draped in the usual sterile manner with Betadine. The patient had fluid and swelling in the anterior and lateral aspect of the proximal humerus as well as a separate region of swelling consistent with the region of the AC joint. I elected to proceed with 2 separate incision sites for these 2 different areas. I made a anterior incision and developed the deltopectoral interval. I dissected down to the humeral head. There was significant swelling within the capsule as well as the bursal space. This region was incised and then bursal tissue excised. A very large copious amount of purulent material was encountered. This region was cultured. I then performed a thorough debridement down to the level of bone both bluntly as well as sharply with a knife. I then made a separate incision line with the joint of the acromioclavicular joint. I encountered significant amount of purulent material in this region as well. A separate culture was obtained. Again this was debrided bluntly as well as sharply down to the level of bone at the AC joint. Both areas were then thoroughly irrigated with Pulsavac with bacitracin fluid. I then placed 2 Hemovac drains within the glenohumeral region 1 tracking into the joint and the other tracking out laterally into the deltoid space. I placed a third Hemovac into the region of the AC joint. We made Stimulon beads on the back table with both vancomycin and gentamicin into the beads. These were then placed into the region of the AC joint as well as the glenohumeral joint and deltoid space. The wounds were then closed with interrupted 3-0 nylon suture. All needle and sponge counts were correct at the end of the procedure. The patient was transferred to the PACU in stable condition without apparent complication. I attest to the content of the Intraoperative Record and any orders documented therein. Any exceptions are noted below.
[2017-11-23] MEDS ORDERED: FLUMAZENIL 0.1 MG/1 ML 10 ML VIAL IV PRN (19:00)
[2017-11-23] MEDS ORDERED: NALOXONE HCL 0.4 MG/1 ML VIAL/CARP IV PRN (19:00)
[2017-11-23] MEDS ORDERED: ALUMINUM/MAGNESIUM SUSP 30 ML UDC PO PRN (19:00)
[2017-11-23] MEDS ORDERED: FENTANYL CITRATE INJ 50 MCG/1 ML 2 ML VIAL IV PRN (19:00)
[2017-11-23] MEDS ORDERED: OXYCODONE HCL IR 5 MG TAB (IMMEDIATE RELEASE) PO PRN (19:00)
[2017-11-23] MEDS ORDERED: ATROPINE SULFATE 0.1 MG/ML 5ML SYR IV PRN (19:00)
[2017-11-23] MEDS ORDERED: PROMETHAZINE HCL INJ 12.5 MG in SODIUM CHLORIDE 0.9% 50ML 50 ML IV PRN (19:00)
[2017-11-23] MEDS ORDERED: LABETALOL HCL IV 5 MG/ML 20ML IV PRN (19:00)
[2017-11-23] MEDS ORDERED: EpHEDrine SULFATE INJ 50 MG/ML AMP IV PRN (19:00)
[2017-11-23] MEDS ORDERED: METOPROLOL TARTRATE 1 MG/ML VIAL IV STA (19:16)
[2017-11-23] MEDS ORDERED: METOPROLOL TARTRATE 1 MG/ML VIAL ONE (19:16)
[2017-11-23] MEDS ORDERED: HYDROmorphone INJ 0.5 MG/0.5 ML SYR IV PRN (19:30)
[2017-11-23 19:55] VITALS: BP 137/76; PULSE 97; TEMP 36.9; TEMP 37.2; O2SAT 92; Ht 160 cm; Wt 56.2 kg
[2017-11-23] MEDS ORDERED: D5W AND 1/2NSS + 20MEQ KCL 1,000 ML IV SCH (20:00)
[2017-11-23 20:25] VITALS: BP 121/78; PULSE 98; TEMP 36.7; O2SAT 92
--- NOTE | 2017-11-23 20:34 | Anesthesiology Progress Note ---
Anesthesia Post Op Note Date & Time Nov 23, 2017 at 20:34 Vital Signs Pain Intensity: 0 Vital Signs Past 12 Hours Date Time Temp Pulse Resp B/P (MAP) Pulse Ox O2 Delivery O2 Flow Rate FiO2 11/23/17 19:55 36.9 97 18 137/76 (96) 92 Room Air 11/23/17 19:50 36.2 97 18 157/82 94 Room Air 11/23/17 19:40 98 19 132/77 92 Room Air 11/23/17 19:30 98 19 158/96 97 Oxymask 10 11/23/17 19:21 102 176/84 11/23/17 19:20 102 22 176/84 98 Oxymask 10 11/23/17 19:10 36.1 107 27 140/85 96 Oxymask 10 11/23/17 17:00 36.9 105 18 164/88 (113) 95 Room Air 11/23/17 16:15 95 Room Air 11/23/17 16:15 36.9 92 18 158/94 (115) 95 Room Air 11/23/17 13:42 36.9 95 18 107/66 95 Room Air Notes Mental Status: alert / awake / arousable, participated in evaluation Pt Amnestic to Procedure: Yes Nausea / Vomiting: adequately controlled Pain: adequately controlled Airway Patency, RR, SpO2: stable & adequate BP & HR: stable & adequate Hydration State: stable & adequate Anesthetic Complications: no major complications apparent
[2017-11-23 21:10] VITALS: BP 116/77; PULSE 102; TEMP 36.6; O2SAT 91
[2017-11-23 21:55] VITALS: BP 123/78; PULSE 101; TEMP 37; O2SAT 91
[2017-11-23] MEDS: ROPINIROLE HCL 1 MG TAB PO SCH (21:57)
[2017-11-23] MEDS: MONTELUKAST SOD 10 MG TAB PO SCH (21:57)
[2017-11-23] MEDS: METOPROLOL TARTRATE 25 MG TAB PO SCH (21:58)
[2017-11-23] MEDS: FLUTICASONE/SALMETEROL 250/50 (ADVAIR) 14 PUFF/1 INHALER INH SCH (21:58)
[2017-11-23 23:03] VITALS: BP 117/71; PULSE 94; TEMP 36.8; O2SAT 94
[2017-11-23] MEDS ORDERED: INSULIN ASPART 100 UNITS/ML 3 ML PEN SC ONE (23:16)
[2017-11-23] MEDS ORDERED: GLUCOSE 40% GEL 15 GM TUBE PO PRN (23:30)
[2017-11-23] MEDS ORDERED: GLUCAGON FOR INJ 1 MG VIAL SQ PRN (23:30)
[2017-11-23] MEDS ORDERED: CARBOHYDRATES FOR HYPOGLYCEMIA PO PRN (23:30)
[2017-11-23] MEDS ORDERED: GLUCOSE 10 TABS/TUBE PO PRN (23:30)
[2017-11-23] MEDS ORDERED: DEXTROSE 50% 50 ML SYR IV PRN (23:30)
[2017-11-23] MEDS ORDERED: SODIUM CHLORIDE 0.9% 1000ML 1,000 ML IV ONE (23:59)
[2017-11-24] VITALS (8 sets, daily range): BP systolic 94–144; BP diastolic 55–78; PULSE 95–109; TEMP 36.4–37.2; O2SAT 94–96
[2017-11-24] MEDS: PIPERACILL/TAZOBAC IV 3.375 GM in DEXTROSE 5% 100ML 100 ML IV SCH ×3 (00:36→15:40)
[2017-11-24 06:22] LABS: HEMATOCRIT 28.7 % (37-47); HEMOGLOBIN 9.6 g/dL (12.0-16.0); MEAN CELL VOLUME 96.6 fL (80-100); MEAN CORPUSCULAR HEMOGLOBIN 32.3 pg (25-34); MEAN CORPUSCULAR HGB CONC 33.4 g/dl (32-36); MEAN PLATELET VOLUME 8.1 fL (7.4-10.4); PLATELET COUNT 621 K/uL (130-400); RED CELL DISTRIBUTION WIDTH CV 12.8 % (11.5-14.5); RED CELL DISTRIBUTION WIDTH SD 45.2 fL (36.4-46.3); WHITE BLOOD COUNT 10.68 K/uL (4.8-10.8)
[2017-11-24 06:55] LABS: CALCIUM 9.1 mg/dl (8.5-10.1); CREATININE 0.77 mg/dl (0.60-1.20)
[2017-11-24] MEDS: INSULIN ASPART 100 UNITS/ML 3 ML PEN SC SCH ×4 (08:00→21:00)
[2017-11-24 08:42] LABS: HEMOGLOBIN A1C 6.7 % (4.5-5.6)
[2017-11-24] MEDS: FERROUS SULFATE 325 MG TAB PO SCH ×2 (08:49→17:57)
[2017-11-24] MEDS: FLUTICASONE/SALMETEROL 250/50 (ADVAIR) 14 PUFF/1 INHALER INH SCH ×2 (08:50→21:17)
[2017-11-24] MEDS: DOCUSATE SODIUM/SENNA 50/8.6MG TAB PO SCH (08:51)
[2017-11-24] MEDS: MULTIVITAMIN TAB PO SCH (08:51)
[2017-11-24] MEDS: CLOPIDOGREL BISULFATE 75 MG TAB PO SCH (08:51)
[2017-11-24] MEDS: PANTOprazole SOD 40 MG TAB PO SCH (08:51)
[2017-11-24] MEDS: CYANOCOBALAMIN 500 MCG TAB (VIT B-12) PO SCH (08:52)
[2017-11-24] MEDS: CARBIDOPA/LEVODOPA 25/100MG TAB PO SCH ×4 (08:52→21:18)
--- NOTE | 2017-11-24 08:54 | Orthopedic Progress Note ---
Orthopedic Progress Note Date of Service Nov 24, 2017. Subjective Post OP Day: 1 Reports: feeling well, Denies: chest pain, SOB, nausea / vomiting, light headedness, calf pain Objective calves soft nontender, N/V intact, capillary refill less than 2 sec., dressing C /D/I, A&O x3, toes mobile, hemovac drainage (#1 5CC/ #2 10CC) Date Time Temp Pulse Resp B/P (MAP) Pulse Ox O2 Delivery O2 Flow Rate FiO2 11/24/17 07:07 36.7 109 17 144/78 (100) 95 Room Air 11/24/17 04:17 36.4 97 18 113/68 (83) 94 Room Air 11/24/17 00:30 Room Air 11/23/17 23:03 36.8 94 18 117/71 (86) 94 11/23/17 21:55 37.0 101 18 123/78 (93) 91 Room Air 11/23/17 21:10 36.6 102 18 116/77 (90) 91 11/23/17 20:25 36.7 98 18 121/78 (92) 92 Room Air 11/23/17 19:55 36.9 97 18 137/76 (96) 92 Room Air 11/23/17 19:55 37.2 97 18 137/76 92 Room Air 11/23/17 19:55 92 Room Air 11/23/17 19:50 36.2 97 18 157/82 94 Room Air 11/23/17 19:40 98 19 132/77 92 Room Air 11/23/17 19:30 98 19 158/96 97 Oxymask 10 11/23/17 19:21 102 176/84 11/23/17 19:20 102 22 176/84 98 Oxymask 10 11/23/17 19:10 36.1 107 27 140/85 96 Oxymask 10 11/23/17 17:00 36.9 105 18 164/88 (113) 95 Room Air 11/23/17 16:15 95 Room Air 11/23/17 16:15 36.9 92 18 158/94 (115) 95 Room Air 11/23/17 13:42 36.9 95 18 107/66 95 Room Air Laboratory Results 24 Hours: Test 11/23/17 15:55 11/24/17 05:56 White Blood Count 11.52 K/uL Red Blood Count 3.39 M/uL Hemoglobin 11.0 g/dL 9.6 g/dL Hematocrit 32.9 % 28.7 % Mean Corpuscular Volume 97.1 fL Mean Corpuscular Hemoglobin 32.4 pg Mean Corpuscular Hemoglobin Concent 33.4 g/dl Platelet Count 539 K/uL Mean Platelet Volume 8.2 fL Neutrophils (%) (Auto) 63.6 % Lymphocytes (%) (Auto) 18.1 % Monocytes (%) (Auto) 8.9 % Eosinophils (%) (Auto) 5.6 % Basophils (%) (Auto) 0.4 % Neutrophils # (Auto) 7.32 K/uL Lymphocytes # (Auto) 2.09 K/uL Monocytes # (Auto) 1.03 K/uL Eosinophils # (Auto) 0.64 K/uL Basophils # (Auto) 0.05 K/uL Prothromb Time International Ratio 1.0 Prothrombin Time 10.6 SECONDS Assessment & Plan Assessment: POD#1 SP I&D RIGHT SEPTIC SHOULDER Plan: PAIN MANAGEMENT DVT PROPH- (CHRONIC PLAVIX) MEDICAL MANAGEMENT CULTURES PENDING, WILL FOLLOW - DR. DUEÑAS CONSULTED - MAY NEED PICC LINE, WILL AWAIT ID RECS -CONTINUE IV VANCO + ZOSYN FOR NOW DC PLANNING- CM TO DISCUSS OPTIONS DC DRESSING/DRAIN IN AM IF MINIMAL OUTPUT
[2017-11-24] MEDS: METOPROLOL TARTRATE 25 MG TAB PO SCH ×2 (08:55→21:23)
[2017-11-24] MEDS ORDERED: PANTOprazole SOD 40 MG TAB PO SCH (09:00)
--- NOTE | 2017-11-24 09:56 | Anesthesiology Progress Note ---
Anesthesia Post Op Note Date & Time Nov 24, 2017 at 09:56 Vital Signs Pain Intensity: 0.0 Vital Signs Past 12 Hours Date Time Temp Pulse Resp B/P (MAP) Pulse Ox O2 Delivery O2 Flow Rate FiO2 11/24/17 08:54 104 124/70 (88) 11/24/17 07:30 Room Air 11/24/17 07:07 36.7 109 17 144/78 (100) 95 Room Air 11/24/17 04:17 36.4 97 18 113/68 (83) 94 Room Air 11/24/17 00:30 Room Air 11/23/17 23:03 36.8 94 18 117/71 (86) 94 Notes Mental Status: alert / awake / arousable, participated in evaluation Pt Amnestic to Procedure: Yes Nausea / Vomiting: adequately controlled Pain: adequately controlled Airway Patency, RR, SpO2: stable & adequate BP & HR: stable & adequate Hydration State: stable & adequate Anesthetic Complications: no major complications apparent
--- NOTE | 2017-11-24 11:11 | Progress Note ---
Progress Note Date of Service Nov 24, 2017. Progress Note ID Consult Dictated #[id number] A/P: 1. Septic right shoulder -Continue emperic abx, follow OR cultures -will follow, thank you
--- NOTE | 2017-11-24 11:47 | INFECT. DISEASE CONSULTATION ---
DATE OF CONSULTATION: 11/24/2017 HISTORY OF PRESENT ILLNESS: This is an 82-year-old female who was admitted to the hospital after she had an abnormal CAT scan of the shoulder. I did speak with orthopedic surgery yesterday. Reportedly, the patient has multiple falls on the right side over the past several weeks. She does have underlying Parkinson's disease and unsteady gait due to this. She does admit to falling on the right shoulder and having significant pain. She was followed by orthopedic surgery and had negative x-rays, but was sent for a CAT scan, which was done yesterday morning. The report of this did show fluid as well as gas and she was subsequently admitted to the hospital and placed on intravenous antibiotics and taken to the operating room last night for washout. She currently is on vancomycin and Zosyn and is tolerating these antibiotics well. She has been afebrile since admission. She had a mild leukocytosis of 11 in the ER, which is improved today. Blood cultures were obtained and are pending. OR cultures as well as blood cultures from the Emergency Room are pending as well. She is out of bed to chair on my examination and she denies any fevers or chills currently. She has no chest pain, cough, shortness of breath, nausea, vomiting, or diarrhea. She states her appetite has been poor recently, but that is not abnormal for her. Her only complaint is pain in the shoulder. Her remaining review of systems is reviewed and unremarkable. PAST MEDICAL HISTORY: Significant for asthma, history of C2 fracture, depression, type 2 diabetes, GERD, hyperlipidemia, hypertension, Parkinson's disease. ALLERGIES: INCLUDE BENADRYL, IODINE, SHELLFISH, CIPRO, LATEX, QUININE, and TRIPROLIDINE. CURRENT MEDICATIONS: Vancomycin, Effexor, folic acid, Protonix, Senokot, vitamin B, Plavix, multivitamin, insulin, Zosyn, Advair, Lopressor, Singulair, Requip, Dilaudid, Maalox, oxycodone, iron, Sinemet, Atrovent, Xopenex, Vistaril, Reglan, and Zofran. PHYSICAL EXAMINATION: VITAL SIGNS: She is afebrile, pulse 104, respiratory rate 17, blood pressure 124/70, oxygen saturation is 95% on room air. GENERAL: She is awake, alert, and oriented x3. She is in no acute distress. HEENT: Mucous membranes are dry. Extraocular muscles are intact. HEART: Regular. LUNGS: Clear, but decreased bilaterally. ABDOMEN: Soft and nondistended. EXTREMITIES: There is no lower extremity edema. Examination of the shoulder reveals the dressing to be clean, dry, and intact. Drain is in place with serosanguineous fluid. Arm is in a sling. LABORATORY STUDIES: CBC today, white blood cell count 10.6, hemoglobin 9.6, platelets 621. Chemistry panel: Sodium 135, potassium 4.7, chloride 103, bicarbonate 27, BUN 18, creatinine 0.7, glucose 108. UA is negative. UA, a large leukocyte esterase, greater than 30 wbc's and 4+ bacteria, there are 0-5 epithelial cells. Aspirate fluid shows yellow, turbid fluid with almost 500,000 white blood cells and 99% neutrophils. OR cultures are pending. Blood cultures are pending. ASSESSMENT AND PLAN: Septic arthritis of the right shoulder. She will remain on empiric antibiotics pending culture data. We will follow along with you. Thank you for this consultation.
[2017-11-24] MEDS: VENLAFAXINE HCL XR 75 MG CAPXR PO SCH (13:14)
[2017-11-24] MEDS ORDERED: VANCOMYCIN IV 1,000 MG in SODIUM CHLORIDE 0.9% 250ML 250 ML IV SCH (18:00)
--- NOTE | 2017-11-24 18:13 | Progress Note ---
Medicine Progress Note Date & Time of Visit: Nov 24, 2017 at 18:13. Subjective Seen sitting up in bedside chair, comfortable, in good spirits Has minimal pain in the right shoulder able to move the right hand Denies fever chills Denies shortness of breath, chest pain, palpitations, dizziness, nausea No other symptoms Objective Last 8 Hrs Date Time Temp Pulse Resp B/P (MAP) Pulse Ox O2 Delivery O2 Flow Rate FiO2 11/24/17 15:27 36.9 105 16 96/62 (73) 96 Room Air 11/24/17 11:00 37.2 95 17 94/55 (68) 96 Room Air Physical Exam: General-oriented 3, not in distress, speaking in sentences, no accessory muscle use Head- atraumatic Eyes- PERRL, EOMI, anicteric ENT- oropharynx clear Neck- supple, no JVD, no adenopathy, no thyromegaly Lungs- clear breath sounds bilaterally no rales wheezes Heart- regular rhythm; no murmur, normal rate Abdomen- normal bowel sounds, soft, nontender Extremities- no pretibial edema, no calf tenderness; peripheral pulses intact Right shoulder with heavy dressing in place and wound VAC draining blood Neuro- alert, oriented x #2, no gross focal neurologic deficits Skin- warm & dry Laboratory Results: Last 24 Hours Test 11/23/17 21:51 11/24/17 00:30 11/24/17 05:56 11/24/17 07:29 Lactic Acid Level 1.0 mmol/L Procalcitonin 0.06 ng/ml Bedside Glucose 207 mg/dl White Blood Count 10.68 K/uL Red Blood Count 2.97 M/uL Hemoglobin 9.6 g/dL Hematocrit 28.7 % Mean Corpuscular Volume 96.6 fL Mean Corpuscular Hemoglobin 32.3 pg Mean Corpuscular Hemoglobin Concent 33.4 g/dl RDW Standard Deviation 45.2 fL RDW Coefficient of Variation 12.8 % Platelet Count 621 K/uL Mean Platelet Volume 8.1 fL Sodium Level 135 mmol/L Potassium Level mmol/L 4.7 mmol/L Chloride Level 103 mmol/L Carbon Dioxide Level 27 mmol/L Anion Gap 5.0 mmol/L Blood Urea Nitrogen 18 mg/dl Creatinine 0.77 mg/dl Est Creatinine Clear Calc Drug Dose 46.6 ml/min Estimated GFR () 83.3 Estimated GFR (Non- 71.9 BUN/Creatinine Ratio 23.1 Random Glucose 111 mg/dl Estimated Average Glucose 146 mg/dl Hemoglobin A1c 6.7 % Calcium Level 9.1 mg/dl Test 11/24/17 08:08 11/24/17 11:58 11/24/17 17:15 Bedside Glucose 108 mg/dl 112 mg/dl 114 mg/dl Assessment & Plan R SHOULDER INFECTION Afebrile, stable overall Cultures from I&D pending On empiric Vanco and Zosyn ID consulted DVT prophylaxis per [facility] -continue sinemet ASTHMA Mild exacerbation -continue Advair, montelukast -nebs prn HTN stable -continue lopressor DM II - DIET CONTROLLED glucose: 94 DM II diet HX CVA On Plavix ANXIETY/DEPRESSION -continue Effexor RLS -continue Requip GERD -continue PPI CHRONIC ANEMIA Hgb:11 (~baseline) -continue ferrous sulfate, folic acid, vitamin B12 Thank you for this consultation. We will follow the patient with you during their hospital stay. You can reach a member of the [facility] Hospitalist Team 02/01 via pager @ [phone]. Current Inpatient Medications: Current Inpatient Medications Medications (Trade) Dose Ordered Sig/Joceline Route Start Time Stop Time Status Last Admin Dose Admin Metoclopramide HCl (Reglan Inj) 10 mg Q6H PRN IV 11/23/17 14:15 12/23/17 14:14 Ondansetron HCl (Zofran Inj) 4 mg Q6H PRN IV 11/23/17 14:15 12/23/17 14:14 Miscellaneous Information (Consult) 1 ea UD PRN N/A 11/23/17 14:45 12/23/17 14:44 Miscellaneous Information (Consult) 1 ea UD PRN N/A 11/23/17 14:45 12/23/17 14:44 Carbidopa/Levodopa (Sinemet 25/ 100MG Tab) 2 tab QID PO 11/23/17 17:00 12/23/17 16:59 11/24/17 17:56 2 TAB Ferrous Sulfate (Feosol Tab) 325 mg BIDM PO 11/23/17 17:45 12/23/17 17:59 11/24/17 17:57 325 MG Salmeterol Xinafoate/ Fluticasone (Advair Diskus 250/50 Inh) 1 puff BID INH 11/23/17 21:00 12/23/17 20:59 11/24/17 08:50 1 PUFF Folic Acid (Folvite Tab) 1 mg QAM PO 11/24/17 09:00 12/24/17 08:59 11/24/17 08:50 1 MG Hydroxyzine HCl (Vistaril Tab) 10 mg HS PRN PO 11/23/17 15:45 12/23/17 15:44 Metoprolol Tartrate (Lopressor Tab) 25 mg BID PO 11/23/17 21:00 12/23/17 20:59 11/24/17 08:55 25 MG Montelukast Sodium (Singulair Tab) 10 mg HS PO 11/23/17 21:00 12/23/17 20:59 11/23/17 21:57 10 MG Pantoprazole Sodium (Protonix Tab) 40 mg DAILY PO 11/24/17 09:00 12/24/17 08:59 11/24/17 08:51 40 MG Ropinirole HCl (Requip Tab) 1 mg HS PO 11/23/17 21:00 12/23/17 20:59 11/23/17 21:57 1 MG Senna/Docusate Sodium (Senokot S Tab) 1 tab DAILY PO 11/24/17 09:00 12/24/17 08:59 11/24/17 08:51 1 TAB Venlafaxine HCl (effeXOR EXTENDED REL CAP) 75 mg DAILY@1200 PO 11/24/17 12:00 12/24/17 11:59 11/24/17 13:14 75 MG Cyanocobalamin (Vitamin B-12 Tab) 1,000 mcg DAILY PO 11/24/17 09:00 12/24/17 08:59 11/24/17 08:52 1,000 MCG Miscellaneous Information (Order Awaiting Action) 1 ea QS N/A 11/23/17 16:00 12/23/17 15:59 Ipratropium [place] (Atrovent 0.02% 0.5MG/2.5ML Neb) 0.5 mg Q6H PRN INH 11/23/17 16:00 12/23/17 15:59 Levalbuterol (Xopenex 1.25MG/ 0.5ML Neb) 1.25 mg Q6H PRN INH 11/23/17 16:00 12/23/17 15:59 Vancomycin HCl 1000 mg/Sodium Chloride 270 ml @ 125 mls/hr Q24H IV 11/24/17 18:00 01/05/18 17:59 11/24/17 17:57 125 MLS/HR Piperacillin Sod/ Tazobactam Sod 3.375 gm/Dextrose 115 ml @ 28.75 mls/ hr Q8H IV 11/24/17 00:00 01/05/18 00:00 11/24/17 15:40 28.75 MLS/HR Clopidogrel Bisulfate (plAVix TAB) 75 mg QAM PO 11/24/17 09:00 12/24/17 08:59 11/24/17 08:51 75 MG Al Hydroxide/Mg Hydroxide (Maalox Susp) 30 ml Q4H PRN PO 11/23/17 19:00 12/23/17 18:59 Oxycodone HCl (Roxicodone Immediate Rel Tab) `1-2 TABS FOR PAIN `1 TAB... Q4H PRN PO 11/23/17 19:00 12/07/17 18:59 Multivitamins (Multivitamin Tab) 1 tab DAILY PO 11/24/17 09:00 12/24/17 08:59 11/24/17 08:51 1 TAB Hydromorphone HCl (Dilaudid Inj) 0.5 mg Q2H PRN IV 11/23/17 19:30 12/07/17 19:29 Insulin Aspart (novoLOG ASPART) SLIDING SCALE If C... ACHS SC 11/24/17 08:00 12/24/17 07:59 Glucose (Glucose 40% Gel) 15-30 GRAMS 15 GRAMS... UD PRN PO 11/23/17 23:30 12/23/17 23:29 Glucose (Glucose Chew Tab) 4-8 Tablets 4 Tabl... UD PRN PO 11/23/17 23:30 12/23/17 23:29 Dextrose (Dextrose 50% 50ML Syringe) 25-50ML 25ML FOR ... UD PRN IV 11/23/17 23:30 12/23/17 23:29 Glucagon (Glucagon Inj) 1 mg UD PRN SQ 11/23/17 23:30 12/23/17 23:29 Carbohydrates (Carbohydrates For Hypoglycemia) 15-30 GRAMS 15 grams if BSG 54-69... UD PRN PO 11/23/17 23:30 12/23/17 23:29 Sodium Chloride 1,000 ml @ 50 mls/hr Q20H ONCE IV 11/23/17 23:59 11/24/17 19:58 11/24/17 00:35 50 MLS/HR
[2017-11-24] MEDS: MONTELUKAST SOD 10 MG TAB PO SCH (21:18)
[2017-11-24] MEDS: ROPINIROLE HCL 1 MG TAB PO SCH (21:19)
[2017-11-25] VITALS (7 sets, daily range): BP systolic 106–158; BP diastolic 63–83; PULSE 87–110; TEMP 36.7–37; O2SAT 93–99
[2017-11-25] MEDS: PIPERACILL/TAZOBAC IV 3.375 GM in DEXTROSE 5% 100ML 100 ML IV SCH ×2 (00:18→08:51)
[2017-11-25] MEDS: INSULIN ASPART 100 UNITS/ML 3 ML PEN SC SCH ×4 (08:00→20:38)
[2017-11-25 08:49] LABS: BASO % 0.5 %; BASO ABS # 0.05 K/uL (0-0.2); EOS ABS # 0.28 K/uL (0-0.5); HEMATOCRIT 27.4 % (37-47); HEMOGLOBIN 9.2 g/dL (12.0-16.0); IG# 0.29 K/uL (0.00-0.02); LYMPH % 18.1 %; LYMPH ABS # 1.71 K/uL (1.2-3.4); MEAN CELL VOLUME 96.5 fL (80-100); MEAN CORPUSCULAR HEMOGLOBIN 32.4 pg (25-34); MEAN CORPUSCULAR HGB CONC 33.6 g/dl (32-36); MEAN PLATELET VOLUME 7.7 fL (7.4-10.4); MONO % 9.5 %; NEUT % 65.8 %; NEUT ABS # 6.21 K/uL (1.4-6.5); PLATELET COUNT 540 K/uL (130-400); RED CELL DISTRIBUTION WIDTH CV 12.9 % (11.5-14.5); RED CELL DISTRIBUTION WIDTH SD 45.7 fL (36.4-46.3); WHITE BLOOD COUNT 9.44 K/uL (4.8-10.8)
[2017-11-25] MEDS: MULTIVITAMIN TAB PO SCH (08:58)
[2017-11-25] MEDS: FLUTICASONE/SALMETEROL 250/50 (ADVAIR) 14 PUFF/1 INHALER INH SCH ×2 (08:58→20:42)
[2017-11-25] MEDS: FERROUS SULFATE 325 MG TAB PO SCH ×2 (08:58→17:36)
[2017-11-25] MEDS: CLOPIDOGREL BISULFATE 75 MG TAB PO SCH (08:59)
[2017-11-25] MEDS: PANTOprazole SOD 40 MG TAB PO SCH (08:59)
[2017-11-25] MEDS: CYANOCOBALAMIN 500 MCG TAB (VIT B-12) PO SCH (08:59)
[2017-11-25] MEDS: DOCUSATE SODIUM/SENNA 50/8.6MG TAB PO SCH (08:59)
[2017-11-25] MEDS: CARBIDOPA/LEVODOPA 25/100MG TAB PO SCH ×4 (09:00→20:42)
[2017-11-25] MEDS: METOPROLOL TARTRATE 25 MG TAB PO SCH ×2 (09:03→20:41)
[2017-11-25 09:13] LABS: CALCIUM 9.5 mg/dl (8.5-10.1); CREATININE 0.71 mg/dl (0.60-1.20)
--- NOTE | 2017-11-25 10:58 | Progress Note ---
Subjective Date of Service: Nov 25, 2017. Subjective OR cultures growing MSSA, remains afebrile. on vanco, tolerating well. blood cultures negative. Problem List Medical Problems: (1) Altered mental status Status: Acute (2) Contusion of left hip and thigh Status: Acute (3) CVA (cerebral vascular accident) Status: Acute (4) Dens fracture Status: Acute (5) Dizziness Status: Acute (6) Expressive aphasia Status: Acute (7) Fall Status: Acute (8) Fall Status: Acute (9) Fall Status: Acute (10) Inability to ambulate due to left knee Status: Acute (11) Left knee sprain Status: Acute (12) TIA (transient ischemic attack) Status: Acute (13) TIA (transient ischemic attack) Status: Acute Objective Vital Signs Date Time Temp Pulse Resp B/P (MAP) Pulse Ox O2 Delivery O2 Flow Rate FiO2 11/25/17 09:03 103 114/71 (85) 11/25/17 08:04 37.0 106 18 151/72 (98) 96 Room Air 11/25/17 07:40 Room Air 11/25/17 00:15 Room Air 11/24/17 22:50 36.8 105 16 107/60 (76) 95 Room Air 11/24/17 16:00 96 Room Air 11/24/17 15:27 36.9 105 16 96/62 (73) 96 Room Air 11/24/17 11:00 37.2 95 17 94/55 (68) 96 Room Air Laboratory Results Last 24 Hours Test 11/24/17 11:58 11/24/17 17:15 11/24/17 20:38 11/25/17 08:20 Bedside Glucose 112 mg/dl 114 mg/dl 146 mg/dl 125 mg/dl Test 11/25/17 08:39 White Blood Count 9.44 K/uL Red Blood Count 2.84 M/uL Hemoglobin 9.2 g/dL Hematocrit 27.4 % Mean Corpuscular Volume 96.5 fL Mean Corpuscular Hemoglobin 32.4 pg Mean Corpuscular Hemoglobin Concent 33.6 g/dl Platelet Count 540 K/uL Mean Platelet Volume 7.7 fL Neutrophils (%) (Auto) 65.8 % Lymphocytes (%) (Auto) 18.1 % Monocytes (%) (Auto) 9.5 % Eosinophils (%) (Auto) 3.0 % Basophils (%) (Auto) 0.5 % Neutrophils # (Auto) 6.21 K/uL Lymphocytes # (Auto) 1.71 K/uL Monocytes # (Auto) 0.90 K/uL Eosinophils # (Auto) 0.28 K/uL Basophils # (Auto) 0.05 K/uL RDW Standard Deviation 45.7 fL RDW Coefficient of Variation 12.9 % Immature Granulocyte % (Auto) 3.1 % Immature Granulocyte # (Auto) 0.29 K/uL Sodium Level 138 mmol/L Potassium Level 4.0 mmol/L Chloride Level 105 mmol/L Carbon Dioxide Level 25 mmol/L Anion Gap 9.0 mmol/L Blood Urea Nitrogen 15 mg/dl Creatinine 0.71 mg/dl Est Creatinine Clear Calc Drug Dose 50.5 ml/min Estimated GFR () 91.9 Estimated GFR (Non- 79.3 BUN/Creatinine Ratio 21.0 Random Glucose 114 mg/dl Calcium Level 9.5 mg/dl Assessment and Plan (1) Infection of shoulder Assessment & Plan: will change to rocephin 1 g daily, will need 6 weeks from OR. weekly cbc, cmp, esr. can follow with ID post d/c.
[2017-11-25] MEDS: CEFTRIAXONE SOD INJ 1 GM in DEXTROSE 5% ADD-VANTAGE 50ML 50 ML IV SCH (12:09)
[2017-11-25] MEDS: VENLAFAXINE HCL XR 75 MG CAPXR PO SCH (12:09)
--- NOTE | 2017-11-25 13:19 | Orthopedic Progress Note ---
Orthopedic Progress Note Date of Service Nov 25, 2017. Subjective Post OP Day: 2 Reports: feeling well, pain controlled w PO medications, Denies: chest pain, SOB , nausea / vomiting, light headedness, calf pain Objective calves soft nontender, N/V intact, capillary refill less than 2 sec., dressing C /D/I, A&O x3, toes mobile, hemovac drainage Date Time Temp Pulse Resp B/P (MAP) Pulse Ox O2 Delivery O2 Flow Rate FiO2 11/25/17 13:05 36.7 103 16 127/68 (87) 98 Room Air 11/25/17 09:03 103 114/71 (85) 11/25/17 08:04 37.0 106 18 151/72 (98) 96 Room Air 11/25/17 07:40 Room Air 11/25/17 00:15 Room Air 11/24/17 22:50 36.8 105 16 107/60 (76) 95 Room Air 11/24/17 16:00 96 Room Air 11/24/17 15:27 36.9 105 16 96/62 (73) 96 Room Air Laboratory Results 24 Hours: Test 11/25/17 08:39 White Blood Count 9.44 K/uL Red Blood Count 2.84 M/uL Hemoglobin 9.2 g/dL Hematocrit 27.4 % Mean Corpuscular Volume 96.5 fL Mean Corpuscular Hemoglobin 32.4 pg Mean Corpuscular Hemoglobin Concent 33.6 g/dl Platelet Count 540 K/uL Mean Platelet Volume 7.7 fL Neutrophils (%) (Auto) 65.8 % Lymphocytes (%) (Auto) 18.1 % Monocytes (%) (Auto) 9.5 % Eosinophils (%) (Auto) 3.0 % Basophils (%) (Auto) 0.5 % Neutrophils # (Auto) 6.21 K/uL Lymphocytes # (Auto) 1.71 K/uL Monocytes # (Auto) 0.90 K/uL Eosinophils # (Auto) 0.28 K/uL Basophils # (Auto) 0.05 K/uL Assessment & Plan Assessment: POD#2 SP I&D RIGHT SEPTIC SHOULDER Plan: PAIN MANAGEMENT DVT PROPH- (CHRONIC PLAVIX) MEDICAL MANAGEMENT CULTURES PENDING, WILL FOLLOW - DR. DUEÑAS CONSULTED - MAY NEED PICC LINE, WILL AWAIT ID RECS -CONTINUE IV VANCO + ZOSYN FOR NOW DC PLANNING- CM TO DISCUSS OPTIONS DC DRAIN today Inhouse Planning Pain Management: Oxy IR DVT Prophylaxis: TEDs, SCDs, other Discharge Planning Discharge Planning: uncertain
[2017-11-25] MEDS ORDERED: VANCOMYCIN TROUGH ONE (17:30)
--- NOTE | 2017-11-25 18:34 | Progress Note ---
Medicine Progress Note Date & Time of Visit: Nov 25, 2017 at 18:33. Subjective seen resting in bed, comfortable states she feels fine overall minimal pain on the right shoulder denies chest pain, dyspnea, dizziness, nausea no other symptoms Objective Last 8 Hrs Date Time Temp Pulse Resp B/P (MAP) Pulse Ox O2 Delivery O2 Flow Rate FiO2 11/25/17 16:40 36.9 110 18 158/83 (108) 99 Room Air 11/25/17 15:15 99 Room Air 11/25/17 13:05 36.7 103 16 127/68 (87) 98 Room Air Physical Exam: General-oriented 3, not in distress, speaking in sentences, no accessory muscle use Eyes- anicteric ENT- oropharynx clear Neck- supple, no JVD Lungs- clear breath sounds bilaterally Heart- regular rhythm; no murmur, normal rate Abdomen- normal bowel sounds, soft, nontender Extremities- no pretibial edema, no calf tenderness Right shoulder with heavy dressing in place and wound VAC draining blood Neuro- alert, oriented x #2, no gross focal neurologic deficits Skin- warm & dry Laboratory Results: Last 24 Hours Test 11/24/17 20:38 11/25/17 08:20 11/25/17 08:39 11/25/17 12:03 Bedside Glucose 146 mg/dl 125 mg/dl 110 mg/dl White Blood Count 9.44 K/uL Red Blood Count 2.84 M/uL Hemoglobin 9.2 g/dL Hematocrit 27.4 % Mean Corpuscular Volume 96.5 fL Mean Corpuscular Hemoglobin 32.4 pg Mean Corpuscular Hemoglobin Concent 33.6 g/dl Platelet Count 540 K/uL Mean Platelet Volume 7.7 fL Neutrophils (%) (Auto) 65.8 % Lymphocytes (%) (Auto) 18.1 % Monocytes (%) (Auto) 9.5 % Eosinophils (%) (Auto) 3.0 % Basophils (%) (Auto) 0.5 % Neutrophils # (Auto) 6.21 K/uL Lymphocytes # (Auto) 1.71 K/uL Monocytes # (Auto) 0.90 K/uL Eosinophils # (Auto) 0.28 K/uL Basophils # (Auto) 0.05 K/uL RDW Standard Deviation 45.7 fL RDW Coefficient of Variation 12.9 % Immature Granulocyte % (Auto) 3.1 % Immature Granulocyte # (Auto) 0.29 K/uL Sodium Level 138 mmol/L Potassium Level 4.0 mmol/L Chloride Level 105 mmol/L Carbon Dioxide Level 25 mmol/L Anion Gap 9.0 mmol/L Blood Urea Nitrogen 15 mg/dl Creatinine 0.71 mg/dl Est Creatinine Clear Calc Drug Dose 50.5 ml/min Estimated GFR () 91.9 Estimated GFR (Non- 79.3 BUN/Creatinine Ratio 21.0 Random Glucose 114 mg/dl Calcium Level 9.5 mg/dl Test 11/25/17 17:08 Bedside Glucose 117 mg/dl Assessment & Plan R SHOULDER INFECTION remains stable overall Cultures from I&D MSSA Abx changed to Ceftri 1 g daily per ID, x 6 weeks DVT prophylaxis per [facility] -continue sinemet ASTHMA not in exacerbation -continue Advair, montelukast -nebs prn HTN stable -continue lopressor DM II - DIET CONTROLLED glucose: 94 DM II diet HX CVA On Plavix ANXIETY/DEPRESSION -continue Effexor RLS -continue Requip GERD -continue PPI CHRONIC ANEMIA Hgb:11 (~baseline) -continue ferrous sulfate, folic acid, vitamin B12 Thank you for this consultation. We will follow the patient with you during their hospital stay. You can reach a member of the [facility] Hospitalist Team 02/01 via pager @ . Current Inpatient Medications: Current Inpatient Medications Medications (Trade) Dose Ordered Sig/Joceline Route Start Time Stop Time Status Last Admin Dose Admin Metoclopramide HCl (Reglan Inj) 10 mg Q6H PRN IV 11/23/17 14:15 12/23/17 14:14 Ondansetron HCl (Zofran Inj) 4 mg Q6H PRN IV 11/23/17 14:15 12/23/17 14:14 Carbidopa/Levodopa (Sinemet 25/ 100MG Tab) 2 tab QID PO 11/23/17 17:00 12/23/17 16:59 11/25/17 16:49 2 TAB Ferrous Sulfate (Feosol Tab) 325 mg BIDM PO 11/23/17 17:45 12/23/17 17:59 11/25/17 17:36 325 MG Salmeterol Xinafoate/ Fluticasone (Advair Diskus 250/50 Inh) 1 puff BID INH 11/23/17 21:00 12/23/17 20:59 11/25/17 08:58 1 PUFF Folic Acid (Folvite Tab) 1 mg QAM PO 11/24/17 09:00 12/24/17 08:59 11/25/17 08:58 1 MG Hydroxyzine HCl (Vistaril Tab) 10 mg HS PRN PO 11/23/17 15:45 12/23/17 15:44 Metoprolol Tartrate (Lopressor Tab) 25 mg BID PO 11/23/17 21:00 12/23/17 20:59 11/25/17 09:03 25 MG Montelukast Sodium (Singulair Tab) 10 mg HS PO 11/23/17 21:00 12/23/17 20:59 11/24/17 21:18 10 MG Pantoprazole Sodium (Protonix Tab) 40 mg DAILY PO 11/24/17 09:00 12/24/17 08:59 11/25/17 08:59 40 MG Ropinirole HCl (Requip Tab) 1 mg HS PO 11/23/17 21:00 12/23/17 20:59 11/24/17 21:19 1 MG Senna/Docusate Sodium (Senokot S Tab) 1 tab DAILY PO 11/24/17 09:00 12/24/17 08:59 11/25/17 08:59 1 TAB Venlafaxine HCl (effeXOR EXTENDED REL CAP) 75 mg DAILY@1200 PO 11/24/17 12:00 12/24/17 11:59 11/25/17 12:09 75 MG Cyanocobalamin (Vitamin B-12 Tab) 1,000 mcg DAILY PO 11/24/17 09:00 12/24/17 08:59 11/25/17 08:59 1,000 MCG Miscellaneous Information (Order Awaiting Action) 1 ea QS N/A 11/23/17 16:00 12/23/17 15:59 Ipratropium [place] (Atrovent 0.02% 0.5MG/2.5ML Neb) 0.5 mg Q6H PRN INH 11/23/17 16:00 12/23/17 15:59 Levalbuterol (Xopenex 1.25MG/ 0.5ML Neb) 1.25 mg Q6H PRN INH 11/23/17 16:00 12/23/17 15:59 Clopidogrel Bisulfate (plAVix TAB) 75 mg QAM PO 11/24/17 09:00 12/24/17 08:59 11/25/17 08:59 75 MG Al Hydroxide/Mg Hydroxide (Maalox Susp) 30 ml Q4H PRN PO 11/23/17 19:00 12/23/17 18:59 Oxycodone HCl (Roxicodone Immediate Rel Tab) `1-2 TABS FOR PAIN `1 TAB... Q4H PRN PO 11/23/17 19:00 12/07/17 18:59 Multivitamins (Multivitamin Tab) 1 tab DAILY PO 11/24/17 09:00 12/24/17 08:59 11/25/17 08:58 1 TAB Hydromorphone HCl (Dilaudid Inj) 0.5 mg Q2H PRN IV 11/23/17 19:30 12/07/17 19:29 Insulin Aspart (novoLOG ASPART) SLIDING SCALE If C... ACHS SC 11/24/17 08:00 12/24/17 07:59 Glucose (Glucose 40% Gel) 15-30 GRAMS 15 GRAMS... UD PRN PO 11/23/17 23:30 12/23/17 23:29 Glucose (Glucose Chew Tab) 4-8 Tablets 4 Tabl... UD PRN PO 11/23/17 23:30 12/23/17 23:29 Dextrose (Dextrose 50% 50ML Syringe) 25-50ML 25ML FOR ... UD PRN IV 11/23/17 23:30 12/23/17 23:29 Glucagon (Glucagon Inj) 1 mg UD PRN SQ 11/23/17 23:30 12/23/17 23:29 Carbohydrates (Carbohydrates For Hypoglycemia) 15-30 GRAMS 15 grams if BSG 54-69... UD PRN PO 11/23/17 23:30 12/23/17 23:29 Ceftriaxone Sodium 1 gm/ Dextrose 50 ml @ 100 mls/hr Q24H IV 11/25/17 12:00 01/06/18 11:59 11/25/17 12:09 100 MLS/HR
[2017-11-25] MEDS: SODIUM CHLORIDE 0.9% 1000ML 1,000 ML IV SCH (18:59)
[2017-11-25] MEDS: ROPINIROLE HCL 1 MG TAB PO SCH (20:41)
[2017-11-25] MEDS: MONTELUKAST SOD 10 MG TAB PO SCH (20:42)
[2017-11-26] VITALS (13 sets, daily range): BP systolic 130–165; BP diastolic 74–85; PULSE 88–113; TEMP 36.7–37.5; O2SAT 92–96
[2017-11-26 06:37] LABS: BASO % 0.8 %; BASO ABS # 0.07 K/uL (0-0.2); EOS % 3.7 %; EOS ABS # 0.33 K/uL (0-0.5); HEMATOCRIT 26.9 % (37-47); HEMOGLOBIN 8.7 g/dL (12.0-16.0); IG# 0.33 K/uL (0.00-0.02); LYMPH % 19.3 %; LYMPH ABS # 1.73 K/uL (1.2-3.4); MEAN CELL VOLUME 96.4 fL (80-100); MEAN CORPUSCULAR HEMOGLOBIN 31.2 pg (25-34); MEAN CORPUSCULAR HGB CONC 32.3 g/dl (32-36); MEAN PLATELET VOLUME 7.8 fL (7.4-10.4); MONO % 9.7 %; MONO ABS # 0.87 K/uL (0.11-0.59); NEUT % 62.8 %; NEUT ABS # 5.62 K/uL (1.4-6.5); PLATELET COUNT 547 K/uL (130-400); RED CELL DISTRIBUTION WIDTH CV 12.7 % (11.5-14.5); RED CELL DISTRIBUTION WIDTH SD 44.8 fL (36.4-46.3); WHITE BLOOD COUNT 8.95 K/uL (4.8-10.8)
[2017-11-26 07:24] LABS: CREATININE 0.74 mg/dl (0.60-1.20)
[2017-11-26 07:25] LABS: CALCIUM 9.6 mg/dl (8.5-10.1); POTASSIUM 4.2 mmol/L (3.5-5.1)
[2017-11-26] MEDS: INSULIN ASPART 100 UNITS/ML 3 ML PEN SC SCH ×4 (08:00→21:00)
[2017-11-26] MEDS: FERROUS SULFATE 325 MG TAB PO SCH ×2 (08:24→18:19)
[2017-11-26] MEDS: FLUTICASONE/SALMETEROL 250/50 (ADVAIR) 14 PUFF/1 INHALER INH SCH ×2 (08:25→21:36)
[2017-11-26] MEDS: CLOPIDOGREL BISULFATE 75 MG TAB PO SCH (08:26)
[2017-11-26] MEDS: DOCUSATE SODIUM/SENNA 50/8.6MG TAB PO SCH (08:26)
[2017-11-26] MEDS: PANTOprazole SOD 40 MG TAB PO SCH (08:26)
[2017-11-26] MEDS: CARBIDOPA/LEVODOPA 25/100MG TAB PO SCH ×4 (08:27→21:37)
[2017-11-26] MEDS: CYANOCOBALAMIN 500 MCG TAB (VIT B-12) PO SCH (08:27)
[2017-11-26] MEDS: METOPROLOL TARTRATE 25 MG TAB PO SCH ×2 (08:30→21:37)
[2017-11-26] MEDS: MULTIVITAMIN TAB PO SCH (08:36)
--- NOTE | 2017-11-26 10:36 | Orthopedic Progress Note ---
Orthopedic Progress Note Date of Service Nov 26, 2017. Subjective Post OP Day: 3 Reports: feeling well, pain controlled w PO medications, Denies: chest pain, SOB , nausea / vomiting, light headedness, calf pain Objective calves soft nontender, N/V intact, capillary refill less than 2 sec., dressing C /D/I, A&O x3, toes mobile Date Time Temp Pulse Resp B/P (MAP) Pulse Ox O2 Delivery O2 Flow Rate FiO2 11/26/17 08:30 107 165/82 (109) 11/26/17 07:25 Room Air 11/26/17 07:05 37.0 97 19 165/85 (111) 94 Room Air 11/25/17 23:30 Room Air 11/25/17 23:00 36.8 87 17 106/63 (77) 93 Room Air 11/25/17 21:18 36.7 108 18 123/69 (87) 97 Room Air 11/25/17 16:40 36.9 110 18 158/83 (108) 99 Room Air 11/25/17 15:15 99 Room Air 11/25/17 13:05 36.7 103 16 127/68 (87) 98 Room Air Laboratory Results 24 Hours: Test 11/26/17 06:24 White Blood Count 8.95 K/uL Red Blood Count 2.79 M/uL Hemoglobin 8.7 g/dL Hematocrit 26.9 % Mean Corpuscular Volume 96.4 fL Mean Corpuscular Hemoglobin 31.2 pg Mean Corpuscular Hemoglobin Concent 32.3 g/dl Platelet Count 547 K/uL Mean Platelet Volume 7.8 fL Neutrophils (%) (Auto) 62.8 % Lymphocytes (%) (Auto) 19.3 % Monocytes (%) (Auto) 9.7 % Eosinophils (%) (Auto) 3.7 % Basophils (%) (Auto) 0.8 % Neutrophils # (Auto) 5.62 K/uL Lymphocytes # (Auto) 1.73 K/uL Monocytes # (Auto) 0.87 K/uL Eosinophils # (Auto) 0.33 K/uL Basophils # (Auto) 0.07 K/uL Assessment & Plan Assessment: POD#3 SP I&D RIGHT SEPTIC SHOULDER Plan: PAIN MANAGEMENT DVT PROPH- (CHRONIC PLAVIX) MEDICAL MANAGEMENT - DR. DUEÑAS CONSULTED - will order PICC line -Changed to IV rocephin per ID x 6 weeks DC PLANNING- CM TO DISCUSS OPTIONS, most likely back to to [facility] Inhouse Planning Pain Management: Oxy IR DVT Prophylaxis: TEDs, SCDs, other Discharge Planning Discharge Planning: uncertain
[2017-11-26] MEDS: SODIUM CHLORIDE 0.9% 1000ML 1,000 ML IV SCH (11:05)
[2017-11-26] MEDS: CEFTRIAXONE SOD INJ 1 GM in DEXTROSE 5% ADD-VANTAGE 50ML 50 ML IV SCH (11:33)
[2017-11-26] MEDS: VENLAFAXINE HCL XR 75 MG CAPXR PO SCH (11:35)
--- NOTE | 2017-11-26 18:38 | Progress Note ---
Medicine Progress Note Date & Time of Visit: Nov 26, 2017 at 18:31. Subjective seen resting in bedside chair, not in distress speaks in sentences with no effort reports some mild dyspnea and productive cough- yellow denies chest pain, dizziness, nausea minimal right arm pain denies other symptoms Objective Last 8 Hrs Date Time Temp Pulse Resp B/P (MAP) Pulse Ox O2 Delivery O2 Flow Rate FiO2 11/26/17 15:15 96 Room Air 11/26/17 15:10 36.8 103 18 152/80 (104) 96 Room Air 11/26/17 12:33 130/76 (94) Physical Exam: General-oriented 3, not in distress, speaking in sentences, no accessory muscle use Eyes- anicteric Neck- no JVD Lungs- mild rhonchi/wheeze right mid-base, left base Heart- regular rhythm; no murmur, normal rate Abdomen- normal bowel sounds, soft, nontender Extremities- no pretibial edema, no calf tenderness Right shoulder with heavy dressing in place and wound VAC draining blood Neuro- alert, oriented x #2, no gross focal neurologic deficits Skin- warm & dry Laboratory Results: Last 24 Hours Test 11/25/17 20:34 11/25/17 20:55 11/26/17 06:24 11/26/17 07:55 Bedside Glucose 131 mg/dl 106 mg/dl Urine Color YELLOW Urine Appearance CLEAR Urine pH 5.0 Urine Specific Rock 1.017 Urine Protein NEG Urine Glucose (UA) NEG Urine Ketones NEG Urine Occult Blood NEG Urine Nitrite NEG Urine Bilirubin NEG Urine Urobilinogen NEG Urine Leukocyte Esterase TRACE Urine WBC (Auto) 5-10 /hpf Urine RBC (Auto) 0-4 /hpf Urine Hyaline Casts (Auto) 1-5 /lpf Urine Epithelial Cells (Auto) 0-5 /lpf Urine Bacteria (Auto) NEG White Blood Count 8.95 K/uL Red Blood Count 2.79 M/uL Hemoglobin 8.7 g/dL Hematocrit 26.9 % Mean Corpuscular Volume 96.4 fL Mean Corpuscular Hemoglobin 31.2 pg Mean Corpuscular Hemoglobin Concent 32.3 g/dl Platelet Count 547 K/uL Mean Platelet Volume 7.8 fL Neutrophils (%) (Auto) 62.8 % Lymphocytes (%) (Auto) 19.3 % Monocytes (%) (Auto) 9.7 % Eosinophils (%) (Auto) 3.7 % Basophils (%) (Auto) 0.8 % Neutrophils # (Auto) 5.62 K/uL Lymphocytes # (Auto) 1.73 K/uL Monocytes # (Auto) 0.87 K/uL Eosinophils # (Auto) 0.33 K/uL Basophils # (Auto) 0.07 K/uL RDW Standard Deviation 44.8 fL RDW Coefficient of Variation 12.7 % Immature Granulocyte % (Auto) 3.7 % Immature Granulocyte # (Auto) 0.33 K/uL Red Blood Cell Morphology Unremarkable Sodium Level 139 mmol/L Potassium Level 4.2 mmol/L Chloride Level 105 mmol/L Carbon Dioxide Level 29 mmol/L Anion Gap 5.0 mmol/L Blood Urea Nitrogen 12 mg/dl Creatinine 0.74 mg/dl Est Creatinine Clear Calc Drug Dose 48.5 ml/min Estimated GFR () 87.4 Estimated GFR (Non- 75.4 BUN/Creatinine Ratio 15.7 Random Glucose 117 mg/dl Calcium Level 9.6 mg/dl Test 11/26/17 12:12 11/26/17 16:57 Bedside Glucose 105 mg/dl 101 mg/dl Assessment & Plan R SHOULDER INFECTION remains stable overall, afebrile Cultures from I&D MSSA Abx changed to Ceftri 1 g daily per ID, x 6 weeks DVT prophylaxis per Ortho ASTHMA mild exacerbation 1 dose Solumedrol, then Prednisone daily Nebs q6h CXR: no pneumonia check CT chest to r/o PE (Well's score 3) PARKINSON'S -continue sinemet HTN stable -continue lopressor DM II - DIET CONTROLLED glucose: 94 DM II diet ISS HX CVA On Plavix ANXIETY/DEPRESSION -continue Effexor RLS -continue Requip GERD -continue PPI CHRONIC ANEMIA Hg 8.7 check Hg tonight -continue ferrous sulfate, folic acid, vitamin B12 Thank you for this consultation. We will follow the patient with you during their hospital stay. You can reach a member of the [facility] Hospitalist Team 02/01 via pager @ [phone]. Current Inpatient Medications: Current Inpatient Medications Medications (Trade) Dose Ordered Sig/Joceline Route Start Time Stop Time Status Last Admin Dose Admin Metoclopramide HCl (Reglan Inj) 10 mg Q6H PRN IV 11/23/17 14:15 12/23/17 14:14 Ondansetron HCl (Zofran Inj) 4 mg Q6H PRN IV 11/23/17 14:15 12/23/17 14:14 Carbidopa/Levodopa (Sinemet 25/ 100MG Tab) 2 tab QID PO 11/23/17 17:00 12/23/17 16:59 11/26/17 17:01 2 TAB Ferrous Sulfate (Feosol Tab) 325 mg BIDM PO 11/23/17 17:45 12/23/17 17:59 11/26/17 18:19 325 MG Salmeterol Xinafoate/ Fluticasone (Advair Diskus 250/50 Inh) 1 puff BID INH 11/23/17 21:00 12/23/17 20:59 11/26/17 08:25 1 PUFF Folic Acid (Folvite Tab) 1 mg QAM PO 11/24/17 09:00 12/24/17 08:59 11/26/17 08:25 1 MG Hydroxyzine HCl (Vistaril Tab) 10 mg HS PRN PO 11/23/17 15:45 12/23/17 15:44 Metoprolol Tartrate (Lopressor Tab) 25 mg BID PO 11/23/17 21:00 12/23/17 20:59 11/26/17 08:30 25 MG Montelukast Sodium (Singulair Tab) 10 mg HS PO 11/23/17 21:00 12/23/17 20:59 11/25/17 20:42 10 MG Pantoprazole Sodium (Protonix Tab) 40 mg DAILY PO 11/24/17 09:00 12/24/17 08:59 11/26/17 08:26 40 MG Ropinirole HCl (Requip Tab) 1 mg HS PO 11/23/17 21:00 12/23/17 20:59 11/25/17 20:41 1 MG Senna/Docusate Sodium (Senokot S Tab) 1 tab DAILY PO 11/24/17 09:00 12/24/17 08:59 11/25/17 08:59 1 TAB Venlafaxine HCl (effeXOR EXTENDED REL CAP) 75 mg DAILY@1200 PO 11/24/17 12:00 12/24/17 11:59 11/26/17 11:35 75 MG Cyanocobalamin (Vitamin B-12 Tab) 1,000 mcg DAILY PO 11/24/17 09:00 12/24/17 08:59 11/26/17 08:27 1,000 MCG Miscellaneous Information (Order Awaiting Action) 1 ea QS N/A 11/23/17 16:00 12/23/17 15:59 Ipratropium [place] (Atrovent 0.02% 0.5MG/2.5ML Neb) 0.5 mg Q6H PRN INH 11/23/17 16:00 12/23/17 15:59 Levalbuterol (Xopenex 1.25MG/ 0.5ML Neb) 1.25 mg Q6H PRN INH 11/23/17 16:00 12/23/17 15:59 Clopidogrel Bisulfate (plAVix TAB) 75 mg QAM PO 11/24/17 09:00 12/24/17 08:59 11/26/17 08:26 75 MG Al Hydroxide/Mg Hydroxide (Maalox Susp) 30 ml Q4H PRN PO 11/23/17 19:00 12/23/17 18:59 Oxycodone HCl (Roxicodone Immediate Rel Tab) `1-2 TABS FOR PAIN `1 TAB... Q4H PRN PO 11/23/17 19:00 12/07/17 18:59 Multivitamins (Multivitamin Tab) 1 tab DAILY PO 11/24/17 09:00 12/24/17 08:59 11/25/17 08:58 1 TAB Hydromorphone HCl (Dilaudid Inj) 0.5 mg Q2H PRN IV 11/23/17 19:30 12/07/17 19:29 Insulin Aspart (novoLOG ASPART) SLIDING SCALE If C... ACHS SC 11/24/17 08:00 12/24/17 07:59 Glucose (Glucose 40% Gel) 15-30 GRAMS 15 GRAMS... UD PRN PO 11/23/17 23:30 12/23/17 23:29 Glucose (Glucose Chew Tab) 4-8 Tablets 4 Tabl... UD PRN PO 11/23/17 23:30 12/23/17 23:29 Dextrose (Dextrose 50% 50ML Syringe) 25-50ML 25ML FOR ... UD PRN IV 11/23/17 23:30 12/23/17 23:29 Glucagon (Glucagon Inj) 1 mg UD PRN SQ 11/23/17 23:30 12/23/17 23:29 Carbohydrates (Carbohydrates For Hypoglycemia) 15-30 GRAMS 15 grams if BSG 54-69... UD PRN PO 11/23/17 23:30 12/23/17 23:29 Ceftriaxone Sodium 1 gm/ Dextrose 50 ml @ 100 mls/hr Q24H IV 11/25/17 12:00 01/06/18 11:59 11/26/17 11:33 100 MLS/HR Levalbuterol (Xopenex 0.63 Mg/ 3 Ml Neb) 0.63 mg NOW STAT INH 11/26/17 18:20 11/26/17 18:21 UNV Levalbuterol (Xopenex 0.63 Mg/ 3 Ml Neb) 0.63 mg Q6R INH 11/27/17 01:00 12/27/17 00:59 UNV Ipratropium [place] (Atrovent 0.02% 0.5MG/2.5ML Neb) 0.5 mg NOW STAT INH 11/26/17 18:20 11/26/17 18:21 UNV Ipratropium [place] (Atrovent 0.02% 0.5MG/2.5ML Neb) 0.5 mg Q6H INH 11/27/17 01:00 12/27/17 00:59 UNV
[2017-11-26] MEDS ORDERED: IPRATROPIUM BROMIDE NEB SOLN 0.02% 2.5 ML VIAL INH STA (18:48)
[2017-11-26] MEDS ORDERED: LEVALBUTEROL 0.63MG/3 ML NEB INH STA (18:48)
--- NOTE | 2017-11-26 18:58 | DIAGNOSTIC IMAGING REPORT ---
CHEST ONE VIEW PORTABLE CLINICAL HISTORY: Respiratory difficulty. Evaluate for pneumonia. COMPARISON STUDY: Chest radiograph October 25, 2017. FINDINGS: Numerous radiodensities project over the right shoulder. Degenerative changes of the right shoulder are noted. Irregularity of the right humeral head is noted. Linear right midlung opacity suggests atelectasis. Mild left lower lung interstitial thickening is likely chronic. There is no pneumothorax or pleural effusion. Cardiomediastinal silhouette is stable. IMPRESSION: 1. No consolidation to suggest pneumonia. 2. Initial thickening within the left lower lung which is likely chronic. 3. Numerous radiodensities projecting over the right shoulder which may reflect antibiotic impregnated beads. Irregularity of the right humeral head which raises the possibility of an infectious process with osteomyelitis. Electronically signed by: Burton Damon M.D. 11/26/2017 6:56 PM Dictated Date/Time: 11/26/2017 6:53 PM
[2017-11-26] MEDS ORDERED: METHYLPREDNISOLONE IV 40 MG in SYRINGE 0 ML IV ONE (19:00)
--- NOTE | 2017-11-26 19:33 | Progress Note ---
Internal Med Progress Note Date of Service: Nov 26, 2017. Provider Documentation: CT PE angiogram precluded by prior anaphylactic reaction to IV dye. Low dose IV heparin to be started as per Dr. Petersen for presumptive PE until PE ruled out with VQ scan in AM. Dr. Alvarenga of Orthopedics agreeable to low dose IV anticoagulation as per Dr. Petersen. Vital Signs: Date Time Temp Pulse Resp B/P (MAP) Pulse Ox O2 Delivery O2 Flow Rate FiO2 11/27/17 07:22 108 18 93 Room Air 11/27/17 06:49 37.2 101 16 158/89 (112) 95 Room Air 11/27/17 02:06 92 18 95 Room Air 11/27/17 01:31 37.0 104 16 155/77 94 11/27/17 01:00 37.0 105 18 156/85 95 11/27/17 00:27 Room Air 11/26/17 23:55 37.5 101 18 147/81 95 11/26/17 23:26 36.7 109 18 134/79 94 11/26/17 23:03 37.0 102 18 136/75 (95) 94 Room Air 11/26/17 22:55 37.0 102 18 136/75 94 11/26/17 22:40 37.1 98 18 134/78 92 11/26/17 22:14 37.3 102 18 143/74 92 11/26/17 21:35 113 144/76 (98) 11/26/17 19:12 88 18 96 Room Air 11/26/17 15:15 96 Room Air 11/26/17 15:10 36.8 103 18 152/80 (104) 96 Room Air 11/26/17 12:33 130/76 (94) Lab Results: Results Past 24 Hours Test 11/26/17 12:12 11/26/17 16:57 11/26/17 19:54 11/26/17 20:34 Range/Units Bedside Glucose 105 101 133 70-90 mg/dl Hemoglobin 7.8 12.0-16.0 g/dL Hematocrit 24.1 37-47 % Activated Partial Thromboplast Time 25.9 21.0-31.0 SECONDS Partial Thromboplastin Ratio 1.0 Test 11/27/17 03:23 11/27/17 08:00 Range/Units White Blood Count 6.92 4.8-10.8 K/uL Red Blood Count 3.22 4.2-5.4 M/uL Hemoglobin 10.2 12.0-16.0 g/dL Hematocrit 30.1 37-47 % Mean Corpuscular Volume 93.5 80-100 fL Mean Corpuscular Hemoglobin 31.7 25-34 pg Mean Corpuscular Hemoglobin Concent 33.9 32-36 g/dl Platelet Count 462 130-400 K/uL Mean Platelet Volume 7.9 7.4-10.4 fL Neutrophils (%) (Auto) 79.5 % Lymphocytes (%) (Auto) 14.5 % Monocytes (%) (Auto) 2.2 % Eosinophils (%) (Auto) 0.1 % Basophils (%) (Auto) 0.1 % Neutrophils # (Auto) 5.50 1.4-6.5 K/uL Lymphocytes # (Auto) 1.00 1.2-3.4 K/uL Monocytes # (Auto) 0.15 0.11-0.59 K/uL Eosinophils # (Auto) 0.01 0-0.5 K/uL Basophils # (Auto) 0.01 0-0.2 K/uL RDW Standard Deviation 47.4 36.4-46.3 fL RDW Coefficient of Variation 13.9 11.5-14.5 % Immature Granulocyte % (Auto) 3.6 % Immature Granulocyte # (Auto) 0.25 0.00-0.02 K/uL Activated Partial Thromboplast Time 30.2 21.0-31.0 SECONDS Partial Thromboplastin Ratio 1.2 Sodium Level 139 136-145 mmol/L Potassium Level 4.4 3.5-5.1 mmol/L Chloride Level 105 98-107 mmol/L Carbon Dioxide Level 28 21-32 mmol/L Anion Gap 6.0 3-11 mmol/L Blood Urea Nitrogen 9 7-18 mg/dl Creatinine 0.74 0.60-1.20 mg/dl Est Creatinine Clear Calc Drug Dose 48.5 ml/min Estimated GFR () 87.4 Estimated GFR (Non- 75.4 BUN/Creatinine Ratio 12.6 10-20 Random Glucose 164 70-99 mg/dl Calcium Level 9.3 8.5-10.1 mg/dl Bedside Glucose 133 70-90 mg/dl
[2017-11-26] MEDS ORDERED: HEPARIN IV LOW DOSE NO BOLUS SCH (19:45)
[2017-11-26 20:05] LABS: HEMATOCRIT 24.1 % (37-47); HEMOGLOBIN 7.8 g/dL (12.0-16.0)
[2017-11-26 20:33] LABS: PTT PATIENT 25.9 SECONDS (21.0-31.0)
--- NOTE | 2017-11-26 21:27 | DIAGNOSTIC IMAGING REPORT ---
BILATERAL LOWER EXTREMITY VENOUS DOPPLER CLINICAL HISTORY: PE work-up COMPARISON STUDY: No previous studies for comparison. TECHNIQUE: Sonography of the deep venous system of the bilateral lower extremities was performed. Compression and augmentation were evaluated. FINDINGS: There is occlusive thrombus within the right peroneal vein which is age indeterminate. No additional sites of deep venous thrombus is identified within either lower extremity. IMPRESSION: 1. Age indeterminate occlusive deep venous thrombus within the right peroneal vein. No above the knee thrombus. 2. No evidence of deep venous thrombus within the left lower extremity. Electronically signed by: Burton Damon M.D. 11/26/2017 9:26 PM Dictated Date/Time: 11/26/2017 9:22 PM
[2017-11-26] MEDS: HEPARIN 25,000 UNIT/500ML D5W 500 ML IV SCH ×2 (21:36→23:00)
[2017-11-26] MEDS: MONTELUKAST SOD 10 MG TAB PO SCH (21:37)
[2017-11-26] MEDS: ROPINIROLE HCL 1 MG TAB PO SCH (21:37)
[2017-11-27] VITALS (9 sets, daily range): BP systolic 107–159; BP diastolic 53–89; PULSE 88–108; TEMP 36.8–37.2; O2SAT 93–95
[2017-11-27] MEDS: IPRATROPIUM BROMIDE NEB SOLN 0.02% 2.5 ML VIAL INH SCH ×2 (02:06→07:22)
[2017-11-27] MEDS: LEVALBUTEROL 0.63MG/3 ML NEB INH SCH ×2 (02:06→07:22)
[2017-11-27 03:30] LABS: BASO % 0.1 %; BASO ABS # 0.01 K/uL (0-0.2); EOS % 0.1 %; EOS ABS # 0.01 K/uL (0-0.5); HEMATOCRIT 30.1 % (37-47); HEMOGLOBIN 10.2 g/dL (12.0-16.0); IG# 0.25 K/uL (0.00-0.02); LYMPH % 14.5 %; MEAN CELL VOLUME 93.5 fL (80-100); MEAN CORPUSCULAR HEMOGLOBIN 31.7 pg (25-34); MEAN CORPUSCULAR HGB CONC 33.9 g/dl (32-36); MEAN PLATELET VOLUME 7.9 fL (7.4-10.4); MONO % 2.2 %; MONO ABS # 0.15 K/uL (0.11-0.59); NEUT % 79.5 %; PLATELET COUNT 462 K/uL (130-400); RED CELL DISTRIBUTION WIDTH CV 13.9 % (11.5-14.5); RED CELL DISTRIBUTION WIDTH SD 47.4 fL (36.4-46.3); WHITE BLOOD COUNT 6.92 K/uL (4.8-10.8)
[2017-11-27 03:40] LABS: PTT PATIENT 30.2 SECONDS (21.0-31.0)
[2017-11-27 03:49] LABS: CALCIUM 9.3 mg/dl (8.5-10.1); CREATININE 0.74 mg/dl (0.60-1.20); POTASSIUM 4.4 mmol/L (3.5-5.1)
[2017-11-27] MEDS: HEPARIN 25,000 UNIT/500ML D5W 500 ML IV SCH ×5 (04:31→22:55)
[2017-11-27] MEDS ORDERED: HEPARIN IV BOLUS 4,000 UNIT in SYRINGE 0 ML IV ONE (04:45)
--- NOTE | 2017-11-27 07:17 | Orthopedic Progress Note ---
Orthopedic Progress Note Date of Service Nov 27, 2017. Subjective Post OP Day: 4 Reports: feeling well, Denies: complaints, SOB, calf pain Additional Notes: -Patient was given a unit of PRBC last night after Hgb drop to 7.8. Up to 10.2 this AM. -Doppler yesterday shows age indeterminate DVT RLE-is on Heparin. VQ scan was ordered. Objective calves soft nontender, N/V intact, dressing C/D/I, toes mobile Fingers mobile. Date Time Temp Pulse Resp B/P (MAP) Pulse Ox O2 Delivery O2 Flow Rate FiO2 11/27/17 06:49 37.2 101 16 158/89 (112) 95 Room Air 11/27/17 02:06 92 18 95 Room Air 11/27/17 01:31 37.0 104 16 155/77 94 11/27/17 01:00 37.0 105 18 156/85 95 11/27/17 00:27 Room Air 11/26/17 23:55 37.5 101 18 147/81 95 11/26/17 23:26 36.7 109 18 134/79 94 11/26/17 23:03 37.0 102 18 136/75 (95) 94 Room Air 11/26/17 22:55 37.0 102 18 136/75 94 11/26/17 22:40 37.1 98 18 134/78 92 11/26/17 22:14 37.3 102 18 143/74 92 11/26/17 21:35 113 144/76 (98) 11/26/17 19:12 88 18 96 Room Air 11/26/17 15:15 96 Room Air 11/26/17 15:10 36.8 103 18 152/80 (104) 96 Room Air 11/26/17 12:33 130/76 (94) 11/26/17 08:30 107 165/82 (109) 11/26/17 07:25 Room Air Laboratory Results 24 Hours: Test 11/26/17 19:54 11/27/17 03:23 Hematocrit 24.1 % 30.1 % Hemoglobin 7.8 g/dL 10.2 g/dL White Blood Count 6.92 K/uL Red Blood Count 3.22 M/uL Mean Corpuscular Volume 93.5 fL Mean Corpuscular Hemoglobin 31.7 pg Mean Corpuscular Hemoglobin Concent 33.9 g/dl Platelet Count 462 K/uL Mean Platelet Volume 7.9 fL Neutrophils (%) (Auto) 79.5 % Lymphocytes (%) (Auto) 14.5 % Monocytes (%) (Auto) 2.2 % Eosinophils (%) (Auto) 0.1 % Basophils (%) (Auto) 0.1 % Neutrophils # (Auto) 5.50 K/uL Lymphocytes # (Auto) 1.00 K/uL Monocytes # (Auto) 0.15 K/uL Eosinophils # (Auto) 0.01 K/uL Basophils # (Auto) 0.01 K/uL Assessment & Plan Assessment: POD#4 SP I&D RIGHT SEPTIC SHOULDER Plan: PAIN MANAGEMENT MEDICAL MANAGEMENT - ID CONSUILTED -Changed to IV rocephin per ID x 6 weeks from [place] - Will need PICC line -On Heparin for DVT, VQ scan ordered by Dr. Grimes [place] PLANNING- TO DISCUSS OPTIONS, most likely back to to [facility] Inhouse Planning Pain Management: Oxy IR DVT Prophylaxis: TEDs, SCDs, other Discharge Planning Discharge Planning: uncertain
[2017-11-27] MEDS: INSULIN ASPART 100 UNITS/ML 3 ML PEN SC SCH ×4 (08:00→20:43)
[2017-11-27] MEDS: DOCUSATE SODIUM/SENNA 50/8.6MG TAB PO SCH (09:00)
--- NOTE | 2017-11-27 09:29 | DIAGNOSTIC IMAGING REPORT ---
LUNG IMAGING VQ CLINICAL HISTORY: Short of breath. Positive DVT, pls call md mckeon results once available. COMPARISON STUDY: Chest 11/26/2017. TECHNIQUE: Immediately following the inhalation of 32.8 mCi of technetium 99 M DTPA for the ventilation scan and the intravenous administration of 5.9 mCi of technetium 99 M MAA for the perfusion scan, anterior, oblique, lateral, and posterior views of the chest were obtained. FINDINGS: No mismatched or segmental defects are identified. Enlargement of the cardiac silhouette. IMPRESSION: Above findings are consistent with a very low probability scan. Electronically signed by: Edu Lyons M.D. 11/27/2017 9:28 AM Dictated Date/Time: 11/27/2017 9:26 AM
[2017-11-27] MEDS: MULTIVITAMIN TAB PO SCH (09:40)
[2017-11-27] MEDS: FERROUS SULFATE 325 MG TAB PO SCH ×2 (09:40→18:09)
[2017-11-27] MEDS: FLUTICASONE/SALMETEROL 250/50 (ADVAIR) 14 PUFF/1 INHALER INH SCH ×2 (09:40→20:37)
[2017-11-27] MEDS: CLOPIDOGREL BISULFATE 75 MG TAB PO SCH (09:41)
[2017-11-27] MEDS: PANTOprazole SOD 40 MG TAB PO SCH (09:42)
[2017-11-27] MEDS: CYANOCOBALAMIN 500 MCG TAB (VIT B-12) PO SCH (09:43)
[2017-11-27] MEDS: CARBIDOPA/LEVODOPA 25/100MG TAB PO SCH ×4 (09:43→20:36)
[2017-11-27] MEDS: METOPROLOL TARTRATE 25 MG TAB PO SCH ×2 (09:45→20:36)
--- NOTE | 2017-11-27 10:07 | Progress Note ---
Medicine Progress Note Date & Time of Visit: Nov 27, 2017 at 10:00. Subjective seen sitting up in bed, comfortable states breathing is much better no chest pain, palpitations, dizziness cough also improving denies leg pain right arm pain well controlled no other symptoms Objective Last 8 Hrs Date Time Temp Pulse Resp B/P (MAP) Pulse Ox O2 Delivery O2 Flow Rate FiO2 11/27/17 09:44 103 159/76 (103) 11/27/17 07:22 108 18 93 Room Air 11/27/17 06:49 37.2 101 16 158/89 (112) 95 Room Air 11/27/17 02:06 92 18 95 Room Air Physical Exam: General-oriented 3, not in distress, speaking in sentences, no accessory muscle use Eyes- anicteric Neck- no JVD Lungs- mild rales on the right base, clear on the left no wheezing Heart- regular rhythm; no murmur, normal rate Abdomen- normal bowel sounds, soft, nontender Extremities-mild edema and warmth right lower leg, no calf tenderness/erythema left lower ext essentially normal Right shoulder with dressings in place- no bleeding/discharge (+) mild edema and warmth R upper arm Neuro- alert, oriented x #2, no gross focal neurologic deficits Skin- warm & dry Laboratory Results: Last 24 Hours Test 11/26/17 12:12 11/26/17 16:57 11/26/17 19:54 11/26/17 20:34 Bedside Glucose 105 mg/dl 101 mg/dl 133 mg/dl Hemoglobin 7.8 g/dL Hematocrit 24.1 % Activated Partial Thromboplast Time 25.9 SECONDS Partial Thromboplastin Ratio 1.0 Test 11/27/17 03:23 11/27/17 08:00 White Blood Count 6.92 K/uL Red Blood Count 3.22 M/uL Hemoglobin 10.2 g/dL Hematocrit 30.1 % Mean Corpuscular Volume 93.5 fL Mean Corpuscular Hemoglobin 31.7 pg Mean Corpuscular Hemoglobin Concent 33.9 g/dl Platelet Count 462 K/uL Mean Platelet Volume 7.9 fL Neutrophils (%) (Auto) 79.5 % Lymphocytes (%) (Auto) 14.5 % Monocytes (%) (Auto) 2.2 % Eosinophils (%) (Auto) 0.1 % Basophils (%) (Auto) 0.1 % Neutrophils # (Auto) 5.50 K/uL Lymphocytes # (Auto) 1.00 K/uL Monocytes # (Auto) 0.15 K/uL Eosinophils # (Auto) 0.01 K/uL Basophils # (Auto) 0.01 K/uL RDW Standard Deviation 47.4 fL RDW Coefficient of Variation 13.9 % Immature Granulocyte % (Auto) 3.6 % Immature Granulocyte # (Auto) 0.25 K/uL Activated Partial Thromboplast Time 30.2 SECONDS Partial Thromboplastin Ratio 1.2 Sodium Level 139 mmol/L Potassium Level 4.4 mmol/L Chloride Level 105 mmol/L Carbon Dioxide Level 28 mmol/L Anion Gap 6.0 mmol/L Blood Urea Nitrogen 9 mg/dl Creatinine 0.74 mg/dl Est Creatinine Clear Calc Drug Dose 48.5 ml/min Estimated GFR () 87.4 Estimated GFR (Non- 75.4 BUN/Creatinine Ratio 12.6 Random Glucose 164 mg/dl Calcium Level 9.3 mg/dl Bedside Glucose 133 mg/dl Assessment & Plan R SHOULDER INFECTION remains stable overall, afebrile Cultures from I&D MSSA Abx changed to Ceftri 1 g daily per ID, x 6 weeks ASTHMA mild exacerbation 1 dose Solumedrol, then Prednisone daily Nebs q6h CXR: no pneumonia VQ scan: low probability of PE -- improving -- continue Prednisone, Nebs check procalcitonin RIGHT OCCLUSIVE PERONEAL DVT, AGE INDETERMINATE check R Arm US to r/o DVT will discuss with Hematology re: anticoagulation maintain heparin drip for now ACUTE BLOOD LOSS ANEMIA, CHRONIC ANEMIA - hG 7.8 given 1 unit pRBC Hg improved to 10.2 -continue ferrous sulfate, folic acid, vitamin B12 PARKINSON'S -continue sinemet HTN stable -continue lopressor DM II - DIET CONTROLLED glucose: 94 DM II diet ISS glycemic control consult HX CVA On Plavix ANXIETY/DEPRESSION -continue Effexor RLS -continue Requip GERD -continue PPI Thank you for this consultation. We will follow the patient with you during their hospital stay. You can reach a member of the [facility] Hospitalist Team 02/01 via pager @ . Current Inpatient Medications: Current Inpatient Medications Medications (Trade) Dose Ordered Sig/Joceline Route Start Time Stop Time Status Last Admin Dose Admin Metoclopramide HCl (Reglan Inj) 10 mg Q6H PRN IV 11/23/17 14:15 12/23/17 14:14 Ondansetron HCl (Zofran Inj) 4 mg Q6H PRN IV 11/23/17 14:15 12/23/17 14:14 Carbidopa/Levodopa (Sinemet 25/ 100MG Tab) 2 tab QID PO 11/23/17 17:00 12/23/17 16:59 11/27/17 09:43 2 TAB Ferrous Sulfate (Feosol Tab) 325 mg BIDM PO 11/23/17 17:45 12/23/17 17:59 11/27/17 09:40 325 MG Salmeterol Xinafoate/ Fluticasone (Advair Diskus 250/50 Inh) 1 puff BID INH 11/23/17 21:00 12/23/17 20:59 11/27/17 09:40 1 PUFF Folic Acid (Folvite Tab) 1 mg QAM PO 11/24/17 09:00 12/24/17 08:59 11/27/17 09:40 1 MG Hydroxyzine HCl (Vistaril Tab) 10 mg HS PRN PO 11/23/17 15:45 12/23/17 15:44 Metoprolol Tartrate (Lopressor Tab) 25 mg BID PO 11/23/17 21:00 12/23/17 20:59 11/27/17 09:45 25 MG Montelukast Sodium (Singulair Tab) 10 mg HS PO 11/23/17 21:00 12/23/17 20:59 11/26/17 21:37 10 MG Pantoprazole Sodium (Protonix Tab) 40 mg DAILY PO 11/24/17 09:00 12/24/17 08:59 11/27/17 09:42 40 MG Ropinirole HCl (Requip Tab) 1 mg HS PO 11/23/17 21:00 12/23/17 20:59 11/26/17 21:37 1 MG Senna/Docusate Sodium (Senokot S Tab) 1 tab DAILY PO 11/24/17 09:00 12/24/17 08:59 11/25/17 08:59 1 TAB Venlafaxine HCl (effeXOR EXTENDED REL CAP) 75 mg DAILY@1200 PO 11/24/17 12:00 12/24/17 11:59 11/26/17 11:35 75 MG Cyanocobalamin (Vitamin B-12 Tab) 1,000 mcg DAILY PO 11/24/17 09:00 12/24/17 08:59 11/27/17 09:43 1,000 MCG Miscellaneous Information (Order Awaiting Action) 1 ea QS N/A 11/23/17 16:00 12/23/17 15:59 Ipratropium [place] (Atrovent 0.02% 0.5MG/2.5ML Neb) 0.5 mg Q6H PRN INH 11/23/17 16:00 12/23/17 15:59 Levalbuterol (Xopenex 1.25MG/ 0.5ML Neb) 1.25 mg Q6H PRN INH 11/23/17 16:00 12/23/17 15:59 Clopidogrel Bisulfate (plAVix TAB) 75 mg QAM PO 11/24/17 09:00 12/24/17 08:59 11/27/17 09:41 75 MG Al Hydroxide/Mg Hydroxide (Maalox Susp) 30 ml Q4H PRN PO 11/23/17 19:00 12/23/17 18:59 Oxycodone HCl (Roxicodone Immediate Rel Tab) `1-2 TABS FOR PAIN `1 TAB... Q4H PRN PO 11/23/17 19:00 12/07/17 18:59 Multivitamins (Multivitamin Tab) 1 tab DAILY PO 11/24/17 09:00 12/24/17 08:59 11/27/17 09:40 1 TAB Hydromorphone HCl (Dilaudid Inj) 0.5 mg Q2H PRN IV 11/23/17 19:30 12/07/17 19:29 Insulin Aspart (novoLOG ASPART) SLIDING SCALE If C... ACHS SC 11/24/17 08:00 12/24/17 07:59 Glucose (Glucose 40% Gel) 15-30 GRAMS 15 GRAMS... UD PRN PO 11/23/17 23:30 12/23/17 23:29 Glucose (Glucose Chew Tab) 4-8 Tablets 4 Tabl... UD PRN PO 11/23/17 23:30 12/23/17 23:29 Dextrose (Dextrose 50% 50ML Syringe) 25-50ML 25ML FOR ... UD PRN IV 11/23/17 23:30 12/23/17 23:29 Glucagon (Glucagon Inj) 1 mg UD PRN SQ 11/23/17 23:30 12/23/17 23:29 Carbohydrates (Carbohydrates For Hypoglycemia) 15-30 GRAMS 15 grams if BSG 54-69... UD PRN PO 11/23/17 23:30 12/23/17 23:29 Ceftriaxone Sodium 1 gm/ Dextrose 50 ml @ 100 mls/hr Q24H IV 11/25/17 12:00 01/06/18 11:59 11/26/17 11:33 100 MLS/HR Levalbuterol (Xopenex 0.63 Mg/ 3 Ml Neb) 0.63 mg Q6R INH 11/27/17 01:00 12/27/17 00:59 11/27/17 07:22 0.63 MG Ipratropium [place] (Atrovent 0.02% 0.5MG/2.5ML Neb) 0.5 mg Q6R INH 11/27/17 01:00 12/27/17 00:59 11/27/17 07:22 0.5 MG Prednisone (PredniSONE TAB) 40 mg DAILY PO 11/27/17 09:00 12/27/17 08:59 11/27/17 09:41 40 MG Heparin Sodium/ Dextrose 500 ml @ 15 mls/hr Q24H IV 11/26/17 20:30 12/26/17 20:29 11/27/17 06:57 15 MLS/HR
[2017-11-27 11:08] LABS: PTT PATIENT 47.4 SECONDS (21.0-31.0)
[2017-11-27] MEDS: CEFTRIAXONE SOD INJ 1 GM in DEXTROSE 5% ADD-VANTAGE 50ML 50 ML IV SCH (12:01)
[2017-11-27] MEDS: VENLAFAXINE HCL XR 75 MG CAPXR PO SCH (12:05)
--- NOTE | 2017-11-27 13:53 | DIAGNOSTIC IMAGING REPORT ---
R VENOUS DOPPLER UPR EXT UNIL HISTORY: 82 years-old Female r/o dvt acute right upper extremity pain and swelling COMPARISON: None available TECHNIQUE: Multiple real-time sonogram images of the right upper extremity deep venous structures were obtained assessing grayscale appearance, color and spectral flow FINDINGS: Study is limited secondary to overlying bandage material about the right shoulder with patient decreased range of motion. The radial and ulnar arteries are not visualized secondary to bandage material. There is normal flow, compressibility and phasicity of the visualized right upper extremity deep venous structures. IMPRESSION: No sonographic evidence of deep venous thrombosis. The above report was generated using voice recognition software. It may contain grammatical, syntax or spelling errors. Electronically signed by: Brett Dean M.D. 11/27/2017 1:52 PM Dictated Date/Time: 11/27/2017 1:50 PM
[2017-11-27] MEDS ORDERED: WARFARIN SOD 3 MG TAB PO ONE (18:30)
[2017-11-27] MEDS: MONTELUKAST SOD 10 MG TAB PO SCH (20:36)
[2017-11-27] MEDS: ROPINIROLE HCL 1 MG TAB PO SCH (20:36)
[2017-11-28] MEDS: HEPARIN 25,000 UNIT/500ML D5W 500 ML IV SCH ×5 (04:30→14:56)
[2017-11-28 05:46] LABS: BASO % 0.3 %; BASO ABS # 0.03 K/uL (0-0.2); EOS % 1.3 %; EOS ABS # 0.15 K/uL (0-0.5); HEMATOCRIT 30.4 % (37-47); HEMOGLOBIN 10.1 g/dL (12.0-16.0); LYMPH % 27.1 %; LYMPH ABS # 3.16 K/uL (1.2-3.4); MEAN CELL VOLUME 94.1 fL (80-100); MEAN CORPUSCULAR HEMOGLOBIN 31.3 pg (25-34); MEAN CORPUSCULAR HGB CONC 33.2 g/dl (32-36); MEAN PLATELET VOLUME 8.1 fL (7.4-10.4); MONO % 8.6 %; PLATELET COUNT 515 K/uL (130-400); RED CELL DISTRIBUTION WIDTH SD 47.9 fL (36.4-46.3); WHITE BLOOD COUNT 11.64 K/uL (4.8-10.8)
[2017-11-28 05:57] LABS: PTT PATIENT 35.1 SECONDS (21.0-31.0)
[2017-11-28 06:27] LABS: CREATININE 0.74 mg/dl (0.60-1.20)
[2017-11-28 06:28] LABS: CALCIUM 9.5 mg/dl (8.5-10.1); POTASSIUM 3.6 mmol/L (3.5-5.1)
--- NOTE | 2017-11-28 06:43 | Orthopedic Progress Note ---
Orthopedic Progress Note Date of Service Nov 28, 2017. Subjective Post OP Day: 5 Reports: feeling well, complaints (Feels cold), Denies: chest pain, SOB, calf pain Additional Notes: Patient was started on Coumadin. Lung VQ scan was negative, also had a negative UE doppler. 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 No shoulder tenderness. Date Time Temp Pulse Resp B/P (MAP) Pulse Ox O2 Delivery O2 Flow Rate FiO2 11/28/17 00:00 Room Air 11/27/17 22:53 36.8 88 16 107/62 (77) 95 Room Air 11/27/17 15:20 95 Room Air 11/27/17 15:05 36.8 104 16 156/53 (87) 93 Room Air 11/27/17 09:44 103 159/76 (103) 11/27/17 07:50 Room Air 11/27/17 07:22 108 18 93 Room Air 11/27/17 06:49 37.2 101 16 158/89 (112) 95 Room Air Laboratory Results 24 Hours: Test 11/28/17 05:31 White Blood Count 11.64 K/uL Red Blood Count 3.23 M/uL Hemoglobin 10.1 g/dL Hematocrit 30.4 % Mean Corpuscular Volume 94.1 fL Mean Corpuscular Hemoglobin 31.3 pg Mean Corpuscular Hemoglobin Concent 33.2 g/dl Platelet Count 515 K/uL Mean Platelet Volume 8.1 fL Neutrophils (%) (Auto) 61.0 % Lymphocytes (%) (Auto) 27.1 % Monocytes (%) (Auto) 8.6 % Eosinophils (%) (Auto) 1.3 % Basophils (%) (Auto) 0.3 % Neutrophils # (Auto) 7.10 K/uL Lymphocytes # (Auto) 3.16 K/uL Monocytes # (Auto) 1.00 K/uL Eosinophils # (Auto) 0.15 K/uL Basophils # (Auto) 0.03 K/uL Prothromb Time International Ratio 1.0 Prothrombin Time 10.8 SECONDS Assessment & Plan Assessment: POD#5 SP I&D RIGHT SEPTIC SHOULDER Plan: PAIN MANAGEMENT MEDICAL MANAGEMENT - ID CONSULTED -Changed to IV Rocephin per ID x 6 weeks from [place] -PICC line ordered DVT-On Heparin, started on Coumadin Anemia-Hemoglobin stable this AM at 10.1 DC PLANNING- Most likely back to [facility]. Will await medicine's recommendations. Patient states she does not feel ready for d/c. Inhouse Planning Pain Management: Oxy IR DVT Prophylaxis: TEDs, SCDs, other Discharge Planning Discharge Planning: uncertain
[2017-11-28] MEDS ORDERED: HEPARIN IV BOLUS 4,000 UNIT in SYRINGE 0 ML IV SCH (07:00)
[2017-11-28 07:09] VITALS: BP 158/76; PULSE 96; TEMP 36.8; O2SAT 96
[2017-11-28] MEDS: INSULIN ASPART 100 UNITS/ML 3 ML PEN SC SCH ×4 (08:00→21:00)
[2017-11-28] MEDS: MULTIVITAMIN TAB PO SCH (08:33)
[2017-11-28] MEDS: DOCUSATE SODIUM/SENNA 50/8.6MG TAB PO SCH (08:34)
[2017-11-28] MEDS: PANTOprazole SOD 40 MG TAB PO SCH (08:34)
[2017-11-28] MEDS: CLOPIDOGREL BISULFATE 75 MG TAB PO SCH (08:35)
[2017-11-28] MEDS: CARBIDOPA/LEVODOPA 25/100MG TAB PO SCH ×4 (08:35→21:18)
[2017-11-28] MEDS: CYANOCOBALAMIN 500 MCG TAB (VIT B-12) PO SCH (08:35)
[2017-11-28] MEDS: FLUTICASONE/SALMETEROL 250/50 (ADVAIR) 14 PUFF/1 INHALER INH SCH ×2 (08:36→21:21)
[2017-11-28] MEDS: FERROUS SULFATE 325 MG TAB PO SCH ×2 (08:36→17:05)
[2017-11-28] MEDS: METOPROLOL TARTRATE 25 MG TAB PO SCH ×2 (08:56→21:18)
[2017-11-28 12:07] LABS: PTT PATIENT 63.5 SECONDS (21.0-31.0)
[2017-11-28] MEDS: VENLAFAXINE HCL XR 75 MG CAPXR PO SCH (12:15)
[2017-11-28] MEDS: CEFTRIAXONE SOD INJ 1 GM in DEXTROSE 5% ADD-VANTAGE 50ML 50 ML IV SCH (12:21)
[2017-11-28 13:53] LABS: PTT PATIENT 51.4 SECONDS (21.0-31.0)
[2017-11-28 15:40] VITALS: BP 134/63; PULSE 99; TEMP 36.6; O2SAT 95
[2017-11-28 15:45] VITALS: O2SAT 95
--- NOTE | 2017-11-28 15:53 | Progress Note ---
Internal Med Progress Note Date of Service: Nov 28, 2017. Provider Documentation: SUBJECTIVE: Seen and examined at bedside States having generalized weakness, otherwise feels better Less cough Denies chest pain, SOB, dizziness Right shoulder pain is controlled No other complaints OBJECTIVE: Vital Signs-as noted below Physical Exam: General Appearance:Moderately built and nourished, no apparent distress Head: normocephalic, Atraumatic Eyes: normal inspection, EOMI, PERRL Neck: supple, Trachea midline Respiratory/Chest: Decreased breath sounds, CTA Cardiovascular: S1, S2, No murmur Abdomen/GI:Soft, Non tender, Bowel sounds present Extremities/Musculoskelatal:normal inspection, R shoulder in sling, no pedal edema Neurologic/Psych:AAOX3, grossly no focal neurological deficits Skin: normal color, warm Lab data as noted below. ASSESSMENT & PLAN: Right Septic Shoulder S/P I&D POD # 5 Wound Cultures from I&D: MSSA Continue Ceftriaxone 1 g daily per ID, x 6 weeks Pain is controlled Activity per Ortho Asthma mild exacerbation CXR: no pneumonia VQ scan: low probability of PE Continue Nebs q6h continue Prednisone taper Right Occlusive Peroneal DVT: Age indeterminant Continue Heparin and Coumadin Needs Coumadin for 3 months Monitor INR Acute Blood Loss Anemia: S/P 1 unit pRBC Hg improved to 10.2 continue ferrous sulfate, folic acid, vitamin B12 Monitor Hb Parkinson's Disease: continue sinemet HTN Stable continue lopressor DM II: Diet Controlled continue ISS glycemic control consult H/O CVA On Plavix Anxiety/Depression: continue Effexor RLS continue Requip GERD continue PPI DVT Px: on Heparin and coumadin Disposition: Per Primary Team Vital Signs: Date Time Temp Pulse Resp B/P (MAP) Pulse Ox O2 Delivery O2 Flow Rate FiO2 11/28/17 07:40 Room Air 11/28/17 07:09 36.8 96 18 158/76 (103) 96 Room Air 11/28/17 00:00 Room Air 11/27/17 22:53 36.8 88 16 107/62 (77) 95 Room Air Lab Results: Results Past 24 Hours Test 11/27/17 17:08 11/27/17 20:43 11/28/17 05:31 11/28/17 07:56 Range/Units Bedside Glucose 142 146 111 70-90 mg/dl White Blood Count 11.64 4.8-10.8 K/uL Red Blood Count 3.23 4.2-5.4 M/uL Hemoglobin 10.1 12.0-16.0 g/dL Hematocrit 30.4 37-47 % Mean Corpuscular Volume 94.1 80-100 fL Mean Corpuscular Hemoglobin 31.3 25-34 pg Mean Corpuscular Hemoglobin Concent 33.2 32-36 g/dl Platelet Count 515 130-400 K/uL Mean Platelet Volume 8.1 7.4-10.4 fL Neutrophils (%) (Auto) 61.0 % Lymphocytes (%) (Auto) 27.1 % Monocytes (%) (Auto) 8.6 % Eosinophils (%) (Auto) 1.3 % Basophils (%) (Auto) 0.3 % Neutrophils # (Auto) 7.10 1.4-6.5 K/uL Lymphocytes # (Auto) 3.16 1.2-3.4 K/uL Monocytes # (Auto) 1.00 0.11-0.59 K/uL Eosinophils # (Auto) 0.15 0-0.5 K/uL Basophils # (Auto) 0.03 0-0.2 K/uL RDW Standard Deviation 47.9 36.4-46.3 fL RDW Coefficient of Variation 14.0 11.5-14.5 % Immature Granulocyte % (Auto) 1.7 % Immature Granulocyte # (Auto) 0.20 0.00-0.02 K/uL Prothrombin Time 10.8 9.0-12.0 SECONDS Prothromb Time International Ratio 1.0 0.9-1.1 Activated Partial Thromboplast Time 35.1 21.0-31.0 SECONDS Partial Thromboplastin Ratio 1.4 Sodium Level 139 136-145 mmol/L Potassium Level 3.6 3.5-5.1 mmol/L Chloride Level 103 98-107 mmol/L Carbon Dioxide Level 28 21-32 mmol/L Anion Gap 9.0 3-11 mmol/L Blood Urea Nitrogen 15 7-18 mg/dl Creatinine 0.74 0.60-1.20 mg/dl Est Creatinine Clear Calc Drug Dose 48.5 ml/min Estimated GFR () 87.4 Estimated GFR (Non- 75.4 BUN/Creatinine Ratio 20.6 10-20 Random Glucose 113 70-99 mg/dl Calcium Level 9.5 8.5-10.1 mg/dl Test 11/28/17 11:36 11/28/17 12:11 11/28/17 13:19 Range/Units Activated Partial Thromboplast Time 63.5 51.4 21.0-31.0 SECONDS Partial Thromboplastin Ratio 2.4 2.0 Bedside Glucose 166 70-90 mg/dl
[2017-11-28] MEDS ORDERED: WARFARIN SOD 3 MG TAB PO SCH (16:00)
[2017-11-28] MEDS ORDERED: WARFARIN SOD 2 MG TAB PO ONE (16:00)
[2017-11-28] MEDS: MONTELUKAST SOD 10 MG TAB PO SCH (21:18)
[2017-11-28] MEDS: ROPINIROLE HCL 1 MG TAB PO SCH (21:20)
[2017-11-28 23:15] VITALS: BP 158/78; PULSE 90; TEMP 37.1; O2SAT 95
[2017-11-29 06:20] LABS: BASO % 0.2 %; BASO ABS # 0.02 K/uL (0-0.2); EOS % 0.9 %; EOS ABS # 0.11 K/uL (0-0.5); HEMATOCRIT 30.4 % (37-47); HEMOGLOBIN 10.3 g/dL (12.0-16.0); IG# 0.25 K/uL (0.00-0.02); LYMPH % 26.2 %; LYMPH ABS # 3.25 K/uL (1.2-3.4); MEAN CELL VOLUME 93.5 fL (80-100); MEAN CORPUSCULAR HEMOGLOBIN 31.7 pg (25-34); MEAN CORPUSCULAR HGB CONC 33.9 g/dl (32-36); MEAN PLATELET VOLUME 7.9 fL (7.4-10.4); MONO % 11.3 %; NEUT % 59.4 %; NEUT ABS # 7.36 K/uL (1.4-6.5); PLATELET COUNT 485 K/uL (130-400); RED CELL DISTRIBUTION WIDTH CV 14.1 % (11.5-14.5); RED CELL DISTRIBUTION WIDTH SD 47.9 fL (36.4-46.3); WHITE BLOOD COUNT 12.39 K/uL (4.8-10.8)
[2017-11-29 06:43] LABS: INR 1.3 (0.9-1.1)
[2017-11-29 06:48] LABS: PTT PATIENT 52.6 SECONDS (21.0-31.0)
[2017-11-29 06:55] LABS: CALCIUM 9.2 mg/dl (8.5-10.1); CREATININE 0.78 mg/dl (0.60-1.20); POTASSIUM 3.4 mmol/L (3.5-5.1)
[2017-11-29 07:10] VITALS: BP 154/80; PULSE 92; TEMP 36.5; O2SAT 93
[2017-11-29] MEDS: HEPARIN 25,000 UNIT/500ML D5W 500 ML IV SCH (07:14)
--- NOTE | 2017-11-29 07:55 | Orthopedic Progress Note ---
Orthopedic Progress Note Date of Service Nov 29, 2017. Subjective Reports: feeling well, Denies: chest pain, SOB, nausea / vomiting, light headedness, calf pain Objective calves soft nontender, N/V intact, capillary refill less than 2 sec., dressing C /D/I, A&O x3, toes mobile Shoulder dressings CDI, no erythema, no drainage. Date Time Temp Pulse Resp B/P (MAP) Pulse Ox O2 Delivery O2 Flow Rate FiO2 11/29/17 07:10 36.5 92 16 154/80 (104) 93 Room Air 11/29/17 00:25 Room Air 11/28/17 23:15 37.1 90 16 158/78 (104) 95 Room Air 11/28/17 15:45 95 Nasal Cannula 1.0 11/28/17 15:40 36.6 99 16 134/63 (86) 95 Room Air Laboratory Results 24 Hours: Test 11/29/17 06:13 White Blood Count 12.39 K/uL Red Blood Count 3.25 M/uL Hemoglobin 10.3 g/dL Hematocrit 30.4 % Mean Corpuscular Volume 93.5 fL Mean Corpuscular Hemoglobin 31.7 pg Mean Corpuscular Hemoglobin Concent 33.9 g/dl Platelet Count 485 K/uL Mean Platelet Volume 7.9 fL Neutrophils (%) (Auto) 59.4 % Lymphocytes (%) (Auto) 26.2 % Monocytes (%) (Auto) 11.3 % Eosinophils (%) (Auto) 0.9 % Basophils (%) (Auto) 0.2 % Neutrophils # (Auto) 7.36 K/uL Lymphocytes # (Auto) 3.25 K/uL Monocytes # (Auto) 1.40 K/uL Eosinophils # (Auto) 0.11 K/uL Basophils # (Auto) 0.02 K/uL Prothromb Time International Ratio 1.3 Prothrombin Time 13.1 SECONDS Assessment & Plan Assessment: POD#6 SP I&D RIGHT SEPTIC SHOULDER Plan: PAIN MANAGEMENT MEDICAL MANAGEMENT - ID CONSULTED -Changed to IV Rocephin per ID x 6 weeks from OR -PICC line ordered and placed DVT-On Heparin, started on Coumadin Anemia-Hemoglobin stable DC PLANNING- Most likely back to . Will await medicine's recommendations. ORTHOPEDICALLY STABLE FOR TRANSFER TODAY IF CLEARED BY MEDICINE. Inhouse Planning Pain Management: Oxy IR DVT Prophylaxis: TEDs, SCDs, other Discharge Planning Discharge Planning: uncertain
[2017-11-29] MEDS ORDERED: CEFT1INJ26 IV (07:58)
[2017-11-29] MEDS ORDERED: CMD3 PO (07:58)
[2017-11-29] MEDS: INSULIN ASPART 100 UNITS/ML 3 ML PEN SC SCH ×2 (08:00→12:00)
--- NOTE | 2017-11-29 08:03 | Discharge Instructions ---
Discharge Instructions Date of Service Nov 29, 2017. Admission Reason for Admission: Infection Of Shoulder Discharge Discharge Diagnosis / Problem: ARTHROSCOPIC I&D RIGHT SHOULDER, LOWER EXTREMITY DVT Discharge Goals Goal(s): Decrease discomfort, Improve function, Increase independence Activity Recommendations Activity Level: Assistance Required Therapies: Physical Therapy, Weight Bearing Status, Occupational Therapy Weightbearing Status: Right weightbearing (as tolerated) Lifting Limitations: no more than 5 pounds Exercise/Sports Limitations: gradually increase as tolerated Shower/Bathe: may shower/bathe in 3 days . Additional Information Patient informed of condition: Yes Advance Directives: Yes DNR: No Level of Care: Acute Rehab Communicable Disease: No Prognosis: Stable Amado Catheter: No Instructions / Follow-Up Instructions / Follow-Up ACTIVITY RECOMMENDATIONS: * You may use the arm as comfort permits. * Gentle ROM should start at once. * Do not shower for 48 hours following surgery. SPECIAL CARE INSTRUCTIONS: * You may cleanse the skin adjacent to the small wounds with soap and water at the time of the first dressing change. * The application of an ice bag to the front and sides of the knee will decrease swelling and discomfort for the first 48 hours. * The small incisions may be sore and develop bruising. This bruising does not require any special care. SPECIAL PRECAUTIONS: * If you experience unusual pain unrelieved by prescriptions, temperature elevation (100 degrees F. or above) or progressive swelling or bleeding, you should contact our office at for further evaluation. * You may have been prescribed pain medication. If you experience nausea and/or fine skin rash, discontinue this medication and contact our office at for an alternate medication. DRESSING: * Dressing should be comfortable and absorb any leakage of fluid and/or blood. * The dressing may become moist or bloodstained. * Dressing may be removed __ after surgery and bandaids placed over the small surgical incisions. If can be removed sooner if it becomes very soiled or loose. * Bandaids may be used over next several days as needed and can be discontinued when there is not further drainage from the wounds. FOLLOW UP VISIT: If appointment is not already scheduled: Please call [facility] [place] to make a follow-up appointment for 2 weeks after your surgery at . DR. ALVARADO CONTINUE IV ROCEPHIN DAILY X 6 WEEKS PICC LINE CARE PER PROTOCOL WEEKLY CBC, CMP, ESR X 6 WEEKS. COUMADIN SLIDING SCALE, PT/INR PER PROTOCOL. Current Hospital Diet Patient's current hospital diet: Diabetes Type 2 Diet, AHA Diet (Heart Healthy) Discharge Diet Recommended Diet: Diabetes Type 2 Diet Procedures Procedures Performed: Right Shoulder Incision and Drainage with stimulan bead placement Pending Studies Studies pending at discharge: no Physician Orders On Transfer Additional Orders: CONTINUE IV ROCEPHIN DAILY X 6 WEEKS PICC LINE CARE PER PROTOCOL WEEKLY CBC, CMP, ESR X 6 WEEKS. COUMADIN SLIDING SCALE, PT/INR PER PROTOCOL. DAILY DRESSING CHANGES PRN GENTLE ROM- ELBOW, WRIST, SHOULDER SLING FOR COMFORT Laboratory Results Hemoglobin A1c Test 11/24/17 05:56 Range/Units Estimated Average Glucose 146 mg/dl Hemoglobin A1c 6.7 H 4.5-5.6 % Medical Emergencies . Who to Call and When: Medical Emergencies: If at any time you feel your situation is an emergency, please call 911 immediately. . Non-Emergent Contact Non-Emergency issues call your: Surgeon . . "Provider Documentation" section prepared by Thao Hill. . Core Measure Problem Core Measures: None
[2017-11-29] MEDS ORDERED: POTASSIUM CHLORIDE 10 MEQ TABCR PO ONE (08:15)
[2017-11-29] MEDS: FERROUS SULFATE 325 MG TAB PO SCH (08:51)
[2017-11-29] MEDS: FLUTICASONE/SALMETEROL 250/50 (ADVAIR) 14 PUFF/1 INHALER INH SCH (08:51)
[2017-11-29] MEDS: METOPROLOL TARTRATE 25 MG TAB PO SCH (08:53)
[2017-11-29] MEDS: MULTIVITAMIN TAB PO SCH (08:53)
[2017-11-29] MEDS: CLOPIDOGREL BISULFATE 75 MG TAB PO SCH (08:53)
[2017-11-29] MEDS: CYANOCOBALAMIN 500 MCG TAB (VIT B-12) PO SCH (08:54)
[2017-11-29] MEDS: CARBIDOPA/LEVODOPA 25/100MG TAB PO SCH ×2 (08:54→12:11)
[2017-11-29] MEDS: PANTOprazole SOD 40 MG TAB PO SCH (08:54)
[2017-11-29] MEDS: DOCUSATE SODIUM/SENNA 50/8.6MG TAB PO SCH (08:54)
[2017-11-29] MEDS ORDERED: ENOXAPARIN 60 MG/0.6 ML SYR SQ SCH (11:30)
--- NOTE | 2017-11-29 11:37 | Progress Note ---
Internal Med Progress Note Date of Service: Nov 29, 2017. Provider Documentation: SUBJECTIVE: Seen and examined at bedside No new complaints Has generalized weakness Less cough Denies chest pain, SOB, dizziness Right shoulder pain is better OBJECTIVE: Vital Signs-as noted below Physical Exam: General Appearance:Moderately built and nourished, no apparent distress Head: normocephalic, Atraumatic Eyes: normal inspection, EOMI, PERRL Neck: supple, Trachea midline Respiratory/Chest: Decreased breath sounds, CTA Cardiovascular: S1, S2, No murmur Abdomen/GI:Soft, Non tender, Bowel sounds present Extremities/Musculoskelatal:normal inspection, R shoulder in sling, no pedal edema Neurologic/Psych:AAOX3, grossly no focal neurological deficits Skin: normal color, warm Lab data as noted below. ASSESSMENT & PLAN: Right Septic Shoulder S/P I&D POD # 6 Wound Cultures from I&D: MSSA Continue Ceftriaxone 1 g daily per ID, x 6 weeks Pain is controlled Activity per Ortho Asthma mild exacerbation CXR: no pneumonia VQ scan: low probability of PE Continue Nebs q6h continue Prednisone taper: 30mg for 2 days, then 20mg for 2 days, then 10mg for 2 days and stop Right Occlusive Peroneal DVT: Age indeterminant Continue Heparin and Coumadin>>>>Transitioned to lovenox and coumadin Continue Coumadin for 3 months Monitor INR Continue lovenox till 2 therapeutic INR between 2.0 - 3.0 and then stop >>plan to transition to coumadin only once INR is therapeutic Acute Blood Loss Anemia: S/P 1 unit pRBC Hg improved to 10.2 continue ferrous sulfate, folic acid, vitamin B12 Monitor Hb Parkinson's Disease: continue sinemet HTN Stable continue lopressor DM II: Diet Controlled continue ISS glycemic control consult H/O CVA On Plavix Anxiety/Depression: continue Effexor RLS continue Requip GERD continue PPI DVT Px: on Lovenox and coumadin Disposition: Per Primary Team Follow up with in 1 week after being discharged from Rehab facility Follow up with Infectious disease in 3-4 weeks Follow up with Orthopedic surgery as advised Continue Lovenox and coumadin till 2 readings of INR in therapeutic ranger (2.0 to 3.0) and then transition to coumadin for 3 months Continue ceftriaxone 1gm daily to complete 6 week course Get weekly cbc, cmp, esr while on IV antibiotics Vital Signs: Date Time Temp Pulse Resp B/P (MAP) Pulse Ox O2 Delivery O2 Flow Rate FiO2 11/29/17 08:15 Room Air 11/29/17 07:10 36.5 92 16 154/80 (104) 93 Room Air 11/29/17 00:25 Room Air 11/28/17 23:15 37.1 90 16 158/78 (104) 95 Room Air 11/28/17 15:45 95 Nasal Cannula 1.0 11/28/17 15:40 36.6 99 16 134/63 (86) 95 Room Air Lab Results: Results Past 24 Hours Test 11/28/17 11:36 11/28/17 12:11 11/28/17 13:19 11/28/17 17:06 Range/Units Activated Partial Thromboplast Time 63.5 51.4 21.0-31.0 SECONDS Partial Thromboplastin Ratio 2.4 2.0 Bedside Glucose 166 175 70-90 mg/dl Test 11/28/17 20:47 11/29/17 06:13 11/29/17 08:03 Range/Units Bedside Glucose 127 109 70-90 mg/dl White Blood Count 12.39 4.8-10.8 K/uL Red Blood Count 3.25 4.2-5.4 M/uL Hemoglobin 10.3 12.0-16.0 g/dL Hematocrit 30.4 37-47 % Mean Corpuscular Volume 93.5 80-100 fL Mean Corpuscular Hemoglobin 31.7 25-34 pg Mean Corpuscular Hemoglobin Concent 33.9 32-36 g/dl Platelet Count 485 130-400 K/uL Mean Platelet Volume 7.9 7.4-10.4 fL Neutrophils (%) (Auto) 59.4 % Lymphocytes (%) (Auto) 26.2 % Monocytes (%) (Auto) 11.3 % Eosinophils (%) (Auto) 0.9 % Basophils (%) (Auto) 0.2 % Neutrophils # (Auto) 7.36 1.4-6.5 K/uL Lymphocytes # (Auto) 3.25 1.2-3.4 K/uL Monocytes # (Auto) 1.40 0.11-0.59 K/uL Eosinophils # (Auto) 0.11 0-0.5 K/uL Basophils # (Auto) 0.02 0-0.2 K/uL RDW Standard Deviation 47.9 36.4-46.3 fL RDW Coefficient of Variation 14.1 11.5-14.5 % Immature Granulocyte % (Auto) 2.0 % Immature Granulocyte # (Auto) 0.25 0.00-0.02 K/uL Prothrombin Time 13.1 9.0-12.0 SECONDS Prothromb Time International Ratio 1.3 0.9-1.1 Activated Partial Thromboplast Time 52.6 21.0-31.0 SECONDS Partial Thromboplastin Ratio 2.0 Sodium Level 138 136-145 mmol/L Potassium Level 3.4 3.5-5.1 mmol/L Chloride Level 101 98-107 mmol/L Carbon Dioxide Level 30 21-32 mmol/L Anion Gap 7.0 3-11 mmol/L Blood Urea Nitrogen 22 7-18 mg/dl Creatinine 0.78 0.60-1.20 mg/dl Est Creatinine Clear Calc Drug Dose 46.0 ml/min Estimated GFR () 82.1 Estimated GFR (Non- 70.8 BUN/Creatinine Ratio 28.2 10-20 Random Glucose 106 70-99 mg/dl Calcium Level 9.2 8.5-10.1 mg/dl
[2017-11-29] MEDS ORDERED: LVNIS60 SQ (11:38)
[2017-11-29] MEDS ORDERED: PRED10TA PO (11:42)
--- NOTE | 2017-11-29 11:45 | Discharge Instructions ---
Discharge Instructions Date of Service Nov 29, 2017. Admission Reason for Admission: Infection Of Shoulder Discharge Discharge Diagnosis / Problem: Right septic shoulder, DVT, Asthma exacerbation Discharge Goals Goal(s): Decrease discomfort, Improve function Activity Recommendations Activity Limitations: per Instructions/Follow-up section Lifting Limitations: gradually increase as tolerated Exercise/Sports Limitations: gradually increase as tolerated . Instructions / Follow-Up Instructions / Follow-Up Follow up with in 1 week after being discharged from Rehab facility Follow up with Infectious disease in 3-4 weeks Follow up with Orthopedic surgery as advised Continue Prednisone taper as prescribed (30mg for 2 days, then 20mg for 2 days, then 10mg for 2 days and stop) Get PT/INR checked tomorrow (11/30/17) and follow up with your physician for further coumadin dosing Continue Lovenox and coumadin till 2 readings of INR in therapeutic ranger (2.0 to 3.0) and then transition to coumadin for 3 months Continue ceftriaxone 1gm daily to complete 6 week course Get weekly cbc, cmp, esr while on IV antibiotics (6 weeks) Current Hospital Diet Patient's current hospital diet: Diabetes Type 2 Diet, AHA Diet (Heart Healthy) Discharge Diet Recommended Diet: AHA Diet (Heart Healthy), Diabetes Type 2 Diet Procedures Procedures Performed: Right Shoulder Incision and Drainage with stimulan bead placement Pending Studies Studies pending at discharge: no Laboratory Results Hemoglobin A1c Test 11/24/17 05:56 Range/Units Estimated Average Glucose 146 mg/dl Hemoglobin A1c 6.7 H 4.5-5.6 % Medical Emergencies . Who to Call and When: Medical Emergencies: If at any time you feel your situation is an emergency, please call 911 immediately. . Non-Emergent Contact Non-Emergency issues call your: Primary Care Provider, Surgeon Call Non-Emergent contact if: you have a fever, your pain is not controlled, your pain is worsening, your pain is unusual for you, your pain is concerning you, wound has increased drainage, wound has increased redness, wound has increased pain, you have any medication questions . . "Provider Documentation" section prepared by Chandler Lepe. .
[2017-11-29] MEDS: VENLAFAXINE HCL XR 75 MG CAPXR PO SCH (12:11)
[2017-11-29] MEDS: CEFTRIAXONE SOD INJ 1 GM in DEXTROSE 5% ADD-VANTAGE 50ML 50 ML IV SCH (12:11)
[2017-11-29 12:35] VITALS: BP 154/80; PULSE 92; TEMP 36.5; O2SAT 93
--- NOTE | 2017-11-30 20:27 | Discharge Summary ---
Orthopedic Discharge Summary Admission Date/Reason Nov 23, 2017 at 14:18 Infection Of Shoulder. Discharge Date/Disposition Nov 29, 2017 shelter facility ([facility]) Diagnosis Principal Diagnosis: Right Shoulder septic joint Secondary Diagnoses/Problems: -Asthma -HTN -DM2 -DVT -Post op anemia Procedure(s) Performed Right Shoulder I&D Consultations Dr. Shaun Petersen of medicine service Dr. Thao Connelly of infectious disease Medication Reconciliation New Medications: Ceftriaxone Sodium (Rocephin) 1 Gm Inj 1000 MG IV DAILY for 40 Days Prednisone Tab (Prednisone) 10 Mg Tab 10 MG PO UD for 6 Days, #12 TAB Start taking prednisone 30mg daily for 2 days, then 20mg for 2 days, then 10mg for 2 days and stop Enoxaparin (Enoxaparin Sodium) 60 Mg/0.6 Ml Inj 60 MG SQ Q12 for 5 Days Warfarin Sod (Coumadin) 3 Mg Tab 3 MG PO DAILY@16 for 30 Days, #30 TAB 2 Refills Continued Medications: Acetaminophen (Tylenol) 500 Mg Tab 500 MG PO Q4 PRN for MILD PAIN/FEVER>101 MAX 3GM/24HR Albuterol Hfa (Ventolin Hfa) 200 Puffs/28222 Mcg Aers 2 PUFFS INH Q6H PRN for BREATHING/ASTHMA, #1 INHALER Carbidopa/Levodopa (Sinemet 25MG/100MG) Tab 2 TABS PO QID, TAB Clopidogrel Bisulfate (Clopidogrel) 75 Mg Tab 75 MG PO QAM for 30 Days, #30 TAB Cyanocobalamin (B-12) 1,000 Mcg Sub 1000 MCG PO DAILY, #30 TABS 5 Refills Ferrous Sulfate (Ferrous Sulfate) 325 Mg Tab 325 MG PO BIDM for 30 Days, TAB Fluticasone Prop/Salmeterol (Advair Diskus 250/50 60 Dose) 1 Ea Aerp 1 PUFF INH BID, INHALER Folic Acid (Folic Acid) 1 Mg Tab 1 MG PO QAM, #30 TABS 0 Refills Hydroxyzine HCl (Hydroxyzine HCl) 10 Mg Tab 10 MG PO HS PRN for ITCHING/ANXIETY Melatonin (Melatonin) 3 Mg Tab 3 MG PO HS Metoprolol Tartrate (Lopressor) (Lopressor) 25 Mg Tab 25 MG PO BID, #60 TAB 5 Refills Montelukast Sodium (Singulair) 10 Mg Tab 10 MG PO HS, TAB Pantoprazole (Protonix) 40 Mg Tab 40 MG PO DAILY, 0 Refills Ropinirole HCl (Ropinirole HCl) 1 Mg Tab 1 MG PO HS for 30 Days, TAB Sennosides-Docusate Sodium (Senna S) 1 Tab Tab 1 TAB PO DAILY @ NOON Tramadol HCl (Tramadol HCl) 50 Mg Tab 50 MG PO Q6H PRN for Pain, #30 TAB 0 Refills Triamcinolone Acet (Aristocort 0.1%) 90 Appln/30 Gm Cr 1 APPLN TOP BID PRN for RASH Venlafaxine Hcl (Effexor Extended Rel) 75 Mg Capcr 75 MG PO DAILY@1200, CAP Admission Physical Exam As per Admitting History & Physical. Hospital Course Patient presented for same day admission after being sent to the ED on 11/23/[address] scan of her shoulder demonstrated gas formation and osteomyelitis. She underwent an aspiration while in the ED, and then I & D later in the day on 11/23/17. The procedure was tolerated well. Cultures obtained during the procedure grew MSSA. Dr. Shaun Petersen of medicine service was consulted and followed the patient during her hospital stay. Dr. Thao Connelly of [place] was also consulted for her recommendations. Following culture and sensitivity results, patient was switched from Vancomycin and Zosyn to 1g of Rocephin daily x 6 weeks. On POD 3 patient was noted to have a hemoglobin drop to 7.8 and received 1 unit of PRBC. She also had complaint of worsening sob and underwent work up for PE. She was negative for a PE, but was found to have a RLE DVT. She was started on heparin and than later switched to Coumadin, of which she will be required to be on for 3 months. She was started on prednisone and breathing treatments for her SOB and asthma exacerbation. Her breathing was improved for the remainder of her hospital stay. Please refer to daily progress notes and PT notes for complete details. After exam on 11/29/17, patient felt to be stable for discharge back to [facility]. Patient will f/u in the office in about 2 weeks for follow up evaluation and incision check, sooner if having any issues or concerns. She will follow up with Infections disease and PCP per discharge instructions. Discharge Instructions Please refer to the electronic Patient Visit Report (Discharge Instructions) for additional information.
--- NOTE | 2017-12-04 11:13 | DISCHARGE SUMMARY ---
DISCHARGE DIAGNOSIS: Septic shoulder. SECONDARY DIAGNOSIS: None. CONSULTS: Dr. Chau, Dr. Fournier. COMPLICATIONS: None. PROCEDURE: The patient underwent I and D of the right shoulder with Dr. Shaw on 11/23/2017. BRIEF HISTORY: Please see previously dictated history and physical. HOSPITAL SUMMARY: The patient was admitted on the above day for the above procedure. Postop day 1, the patient was feeling well without complaints. She denied chest pain or shortness of breath. Vital signs are stable. She was afebrile. Dressing was clean, dry and intact. She was neurovascularly intact. Hemovac 1 drained 5 mL. Hemovac 2 drained 10 mL. Hemoglobin was 9.6. The patient resumed Plavix. Dr. Chau was consulted. PICC line was ordered. She was on IV vancomycin and Zosyn. Cultures were being followed. Postop day 2, the patient continued to improve. She denied chest pain or shortness of breath. Vital signs are stable. She was afebrile. Incision was clean, dry and intact. She was neurovascularly intact. Calves are soft and nontender. Hemovac was removed. Hemoglobin was 9.2. The patient continued IV antibiotics and pain management. She began physical therapy. Postop day 3, the patient continued to improve. Vital signs are stable. She was afebrile. Dressing was clean, dry and intact. She was neurovascularly intact. Calves are soft and nontender. Hemoglobin was 8.7. The patient continued pain management. She resumed her Plavix. She was given 1 unit of PRBCs after hemoglobin dropped to 7.8, hemoglobin improved to 10.2. Doppler ultrasound shows positive DVT. VQ scan was ordered and was negative. Hemoglobin improved to 10.2. She continued PT. The patient was started on Coumadin. Upper extremity Doppler was also negative for DVT. Hemoglobin stable at 10.1. Vital signs are stable. She was afebrile. Dressing was clean, dry and intact. She was neurovascularly intact. Calves are soft and nontender. Fingers were mobile with good tower foreman strength. No shoulder tenderness. The patient continued our current treatment plan. She remained on Rocephin. Case management was working on getting her into [facility]. Postop day 6, the patient continued to improve. She was feeling better. Vital signs were stable. She was afebrile. Dressing was clean, dry and intact. She was neurovascularly intact. Calves are soft and nontender. Hemoglobin was 10.3. The patient was transferred to [facility] later that day in stable condition. For further review, please see the chart. Lab, x-ray data and discharge instructions as per chart. MTDD
--- NOTE | 2017-12-15 09:31 | EDITING REQUIRED CODING QUERY ---
DEBRIDEMENT DOCUMENTATION To promote full compliance with coding requirements relating to patient care, physician participation is requested in all cases of chief building inspector uncertainty. Please assist us with the question(s) below: Coding Question: You stated debridement "down to the level of bone" in the op report; please clarify below. Thank you for your help! Please place an X in the parenthesis (x). If other, please document the finding: Type of Debridement: (x ) Excisional Debridement- Cutting away necrotic, devitalized tissue or slough to the level of viable tissue using a sharp instrument (i.e. scalpel, scissors, etc.) ( ) Non Excisional Debridement- The removal of necrotic, devitalized tissue or slough by means of scraping, mechanical brushing, flushing, or washing (i.e. irrigation, whirlpool);minor removal of loose fragments. ( ) Other (please specify): Depth of Debridement: ( ) Skin ( ) Subcutaneous Tissue and Fascia ( x) Muscle ( ) Tendon ( ) Bursae and Ligaments ( ) Bone ( ) Other (please specify): Thank you! Nida Pérez
== END 2017-11-29 13:15 | DRG 501 ==
LOC: EDBD 13:34 → C.EDA 13:36 → C.MSW 14:18 → ENRESERV 14:30
PROVIDERS: ADMIT Orthopaedic Surgery; ATTEND Orthopaedic Surgery
PROC: 0KB50ZZ Excision of Right Shoulder Muscle, Open Approach (ICD-10-PCS; principal; 2017-11-23 10:00)
PROC: 3E0U029 Introduction of Other Anti-infective into Joints, Open Approach (ICD-10-PCS; principal; 2017-11-23 10:00)
PROC: 02HV33Z Insertion of Infusion Device into Superior Vena Cava, Percutaneous Approach (ICD-10-PCS; 2017-11-27)
DX: M00.811 Arthritis due to other bacteria, right shoulder (principal); D62 Acute posthemorrhagic anemia; I82.4Z1 Acute embolism and thrombosis of unspecified deep veins of right distal lower extremity; B95.61 Methicillin susceptible Staphylococcus aureus infection as the cause of diseases classified elsewhere; G20 Parkinson's disease; R26.81 Unsteadiness on feet; I10 Essential (primary) hypertension; D64.89 Other specified anemias; E11.9 Type 2 diabetes mellitus without complications; K21.9 Gastro-esophageal reflux disease without esophagitis; E78.5 Hyperlipidemia, unspecified; F03.90 Unspecified dementia, unspecified severity, without behavioral disturbance, psychotic disturbance, mood disturbance, and anxiety; F32.9 Major depressive disorder, single episode, unspecified; F41.9 Anxiety disorder, unspecified; G25.81 Restless legs syndrome; J45.909 Unspecified asthma, uncomplicated; Z79.02 Long term (current) use of antithrombotics/antiplatelets; Z79.899 Other long term (current) drug therapy; Z91.81 History of falling; Z87.891 Personal history of nicotine dependence; Z86.73 Personal history of transient ischemic attack (TIA), and cerebral infarction without residual deficits; Z88.1 Allergy status to other antibiotic agents; Z91.040 Latex allergy status; Z91.041 Radiographic dye allergy status

== ENCOUNTER 2017-12-21 11:13 | Inpatient (IN) | payer OTHER ==
[~2017-12-21] VITALS: Ht 154.9 cm; Wt 53.2 kg
[2017-12-21] VITALS (7 sets, daily range): BP systolic 101–152; BP diastolic 49–95; PULSE 90–96; TEMP 36.4–37.2; O2SAT 95–98; BMI 22.2
[~2017-12-21 11:13] MED LIST changes: +CEFT1INJ26 IV; +CMD3 PO; +LVNIS60 SQ
[2017-12-21] MEDS ORDERED: DEXTROSE 5% 1000ML 1,000 ML IV SCH (12:15)
--- NOTE | 2017-12-21 12:46 | History and Physical ---
History & Physical Date Dec 21, 2017. Chief Complaint Right Shoulder wound dehiscence History of Present Illness The patient is a 82 year old female with complaints of right shoulder wound dehiscence. Patient had I&D of right septic shoulder on 11/23/17. She was placed on 1g of Rocephin daily x 6 weeks at that time. She was doing well, however yesterday had a dehiscence of her wound about 2 cm in length. She reports no drainage from the wound. She is having intermittent pain of her right shoulder. She has had a new diagnosis of DVT during prior hospitalization. She states she has off and on chills, no recorded fevers. Patient denies chest pain, sob (at her baseline), sore throat, cough, n/v/d/c, numbness or tingling, headaches, sweats. 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 (16) Vertigo (17) Weakness (18) LE DVT Surgical Problems: (1) Hx of hysterectomy (2) Hx of tonsillectomy (3) I&D right septic shoulder Additional History Hepatic Disease: No Endocrine Disorder: Yes Kidney Disease: No Hypertension: No Heart Disease: No Bleeding Tendencies: Yes (on blood thinners) Infectious Diseases: Yes (history right septic shoulder) Allergies Coded Allergies: Diphenhydramine (Verified Allergy, Severe, SWELLING IN THROAT, 11/23/17) Iodine (Verified Allergy, Severe, THROAT SWELLING, 11/23/17) Shellfish (Verified Allergy, Severe, ANAPHYLAXIS AND FULL BODY HIVES, 11/23) Ciprofloxacin (Verified Allergy, Intermediate, HIVES FULL BODY, 11/23/17) Latex1 -Allergic Contact Dermititis (Verified Allergy, Intermediate, DERMATITIS, 11/23/17) Quinine (Verified Allergy, Intermediate, HIVES, 11/23/17) Triprolidine (Verified Allergy, Intermediate, HIVES, ASTHMA EXACERBATION, 11/23/17) Home Medications Scheduled Carbidopa/Levodopa (Sinemet 25MG/100MG), 2 TABS PO QID Ceftriaxone Sodium (Rocephin), 1,000 MG IV DAILY Clopidogrel Bisulfate (Clopidogrel), 75 MG PO QAM Cyanocobalamin (B-12), 1,000 MCG PO DAILY Enoxaparin (Enoxaparin Sodium), 60 MG SQ Q12 Ferrous Sulfate (Ferrous Sulfate), 325 MG PO BIDM Fluticasone Prop/Salmeterol (Advair Diskus 250/50 60 Dose), 1 PUFF INH BID Folic Acid (Folic Acid), 1 MG PO QAM Melatonin (Melatonin), 3 MG PO HS Metoprolol Tartrate (Lopressor) (Lopressor), 25 MG PO BID Montelukast Sodium (Singulair), 10 MG PO HS Pantoprazole (Protonix), 40 MG PO DAILY Ropinirole HCl (Ropinirole HCl), 1 MG PO HS Sennosides-Docusate Sodium (Senna S), 1 TAB PO DAILY @ NOON Venlafaxine Hcl (Effexor Extended Rel), 75 MG PO DAILY@1200 Warfarin Sod (Coumadin), 3 MG PO DAILY@16 Scheduled PRN Acetaminophen (Tylenol), 500 MG PO Q4 PRN for MILD PAIN/FEVER>101 Albuterol Hfa (Ventolin Hfa), 2 PUFFS INH Q6H PRN for BREATHING/ASTHMA Hydroxyzine HCl (Hydroxyzine HCl), 10 MG PO HS PRN for ITCHING/ANXIETY Tramadol HCl (Tramadol HCl), 50 MG PO Q6H PRN for Pain Triamcinolone Acet (Aristocort 0.1%), 1 APPLN TOP BID PRN for RASH Physical Examination Skin: warm/dry, no rash Eyes: normal inspection, sclerae normal ENT: normal ENT inspection Head: normocephalic, atraumatic Neck: supple, no adenopathy Respiratory/Chest: lungs clear, normal breath sounds Cardiovascular: regular rate, rhythm, no murmur Extremities: + pertinent finding (Right anterior shoulder scar wound dehiscence , no active drainage) Neurologic/Psych: no motor/sensory deficits, alert, oriented x 3 Addiitonal Comments: Last Resulted CBC 12/21/17 12:41 Red Blood Count 3.40, Mean Corpuscular Volume 97.1, Mean Corpuscular Hemoglobin 31.8, Mean Corpuscular Hemoglobin Concent 32.7, Mean Platelet Volume 8.5, Neutrophils (%) (Auto) 67.3, Lymphocytes (%) (Auto) 19.6, Monocytes (%) (Auto) 6.7, Eosinophils (%) (Auto) 5.3, Basophils (%) (Auto) 0.3, Neutrophils # (Auto) 5.93, Lymphocytes # (Auto) 1.73, Monocytes # (Auto) 0.59, Eosinophils # (Auto) 0.47, Basophils # (Auto) 0.03 Last Resulted BMP 12/21/17 12:41 Diagnosis Right shoulder wound dehiscence Plan of Treatment Patient was seen in the office this morning with complaint of wound dehiscence. She was admitted to [facility] with plan on I&D right shoulder tomorrow. Surgical risks, benefits, and alternatives were discussed with the patient and she wishes to proceed. Medicine consulted for medical management and Coumadin reversal. She is on 1g of Rocephin daily.
[2017-12-21] MEDS ORDERED: hydrOXYzine HCL 10 MG TAB PO PRN (13:00)
[2017-12-21] MEDS ORDERED: TRIAMCINOLONE ACET 0.1% CR 15 GM TUBE EXT PRN (13:00)
[2017-12-21] MEDS ORDERED: ACETAMINOPHEN 500 MG TAB PO PRN (13:00)
[2017-12-21] MEDS ORDERED: TRAMADOL HCL 50 MG TAB PO PRN (13:00)
[2017-12-21] MEDS ORDERED: ALBUTEROL HFA 8 GM INHALER INH PRN (13:00)
[2017-12-21 13:03] LABS: INR 2.9 (0.9-1.1)
[2017-12-21 13:05] LABS: BASO % 0.3 %; BASO ABS # 0.03 K/uL (0-0.2); EOS % 5.3 %; EOS ABS # 0.47 K/uL (0-0.5); HEMOGLOBIN 10.8 g/dL (12.0-16.0); IG# 0.07 K/uL (0.00-0.02); LYMPH % 19.6 %; LYMPH ABS # 1.73 K/uL (1.2-3.4); MEAN CELL VOLUME 97.1 fL (80-100); MEAN CORPUSCULAR HEMOGLOBIN 31.8 pg (25-34); MEAN CORPUSCULAR HGB CONC 32.7 g/dl (32-36); MEAN PLATELET VOLUME 8.5 fL (7.4-10.4); MONO % 6.7 %; MONO ABS # 0.59 K/uL (0.11-0.59); NEUT % 67.3 %; NEUT ABS # 5.93 K/uL (1.4-6.5); PLATELET COUNT 330 K/uL (130-400); RED CELL DISTRIBUTION WIDTH CV 15.8 % (11.5-14.5); RED CELL DISTRIBUTION WIDTH SD 55.5 fL (36.4-46.3); WHITE BLOOD COUNT 8.82 K/uL (4.8-10.8)
[2017-12-21 13:12] LABS: CALCIUM 8.6 mg/dl (8.5-10.1); CREATININE 0.82 mg/dl (0.60-1.20); POTASSIUM 3.7 mmol/L (3.5-5.1)
[2017-12-21 13:21] LABS: PTT PATIENT 37.8 SECONDS (21.0-31.0)
[2017-12-21] MEDS: SODIUM CHLORIDE 0.9% 1000ML 1,000 ML IV SCH (13:57)
[2017-12-21] MEDS ORDERED: PHYTONADIONE 5 MG TAB PO STA ×2 (14:54→23:33)
[2017-12-21] MEDS ORDERED: PHYTONADIONE INJ 5 MG in SODIUM CHLORIDE 0.9% 50ML 50 ML IV ONE (15:30)
--- NOTE | 2017-12-21 15:34 | Hospitalist Progress Note ---
Hospitalist Progress Note Date of Service Dec 21, 2017. (Leah Cleary CRNP) Subjective Pt evaluation today including: conversation w/ patient, physical exam, chart review, lab review, review of inpatient medication list Voiding: no voiding problems Ms. Solomon is a very pleasant 82 year old woman. She has no complaints except for pain radiating down her arm from the incision site in her shoulder. She does not walk and is wheelchair bound. She does not have a cardiac history that she is aware of though her echo cardiogram does show DD grade I and WMA, preserved EF 50%. Outpatient records do not show any CHF or CAD in her history as of 07/29. She reports that chronic bronchitis is her biggest health issue for which she has been hospitalized in the past and takes inhalers outpatient. She only smoked for 3 years as a young woman. ROS Constitutional: no chills, aches, sweats or fever Respiratory: no sob,cough, sputum, or wheezing Cardiac: no chest pain, palpitations, edema, orthopnea or lightheadedness GI: no abdominal pain, nausea, vomiting, diarrhea or constipation : no dysuria or hesitancy Extremities: no joint pain or weakness Skin: no rash All other systems reviewed and negative (Leah Cleary CRNP) Medications Medications Administered Medications (Trade) Dose Ordered Sig/Joceline Route Start Time Stop Time Status Last Admin Dose Admin Sodium Chloride 1,000 ml @ 75 mls/hr [id number] IV 12/21/17 14:00 01/20/18 13:59 12/21/17 13:57 75 MLS/HR (Leah Cleary CRNP) Objective Vital Signs Date Time Temp Pulse Resp B/P (MAP) Pulse Ox O2 Delivery O2 Flow Rate FiO2 12/21/17 12:00 37.0 92 16 101/67 98 Room Air (Leah Cleary CRNP) Physical Exam Notes: General: no distress Eyes: normal inspection, PERLL Respiratory: chest non tender, left lung crackles, other ramírez clear to auscultation, no respiratory distress, no accessory muscle use Cardiac: regular rate and rhythm, no rub or gallop, no murmur, no edema, no jvd GI/: active bowel sounds, no abd pain or tenderness, soft, non distended Extremities: normal range of motion, normal strength, non tender Neuro/Psych: alert and oriented x 3, normal mood and affect Skin: normal color, dry (Leah Cleary CRNP) Laboratory Results Last 24 Hours Test 12/21/17 12:41 White Blood Count 8.82 K/uL Red Blood Count 3.40 M/uL Hemoglobin 10.8 g/dL Hematocrit 33.0 % Mean Corpuscular Volume 97.1 fL Mean Corpuscular Hemoglobin 31.8 pg Mean Corpuscular Hemoglobin Concent 32.7 g/dl Platelet Count 330 K/uL Mean Platelet Volume 8.5 fL Neutrophils (%) (Auto) 67.3 % Lymphocytes (%) (Auto) 19.6 % Monocytes (%) (Auto) 6.7 % Eosinophils (%) (Auto) 5.3 % Basophils (%) (Auto) 0.3 % Neutrophils # (Auto) 5.93 K/uL Lymphocytes # (Auto) 1.73 K/uL Monocytes # (Auto) 0.59 K/uL Eosinophils # (Auto) 0.47 K/uL Basophils # (Auto) 0.03 K/uL RDW Standard Deviation 55.5 fL RDW Coefficient of Variation 15.8 % Immature Granulocyte % (Auto) 0.8 % Immature Granulocyte # (Auto) 0.07 K/uL Erythrocyte Sedimentation Rate 21 mm/hr Prothrombin Time 30.0 SECONDS Prothromb Time International Ratio 2.9 Activated Partial Thromboplast Time 37.8 SECONDS Partial Thromboplastin Ratio 1.5 Sodium Level 139 mmol/L Potassium Level 3.7 mmol/L Chloride Level 104 mmol/L Carbon Dioxide Level 29 mmol/L Anion Gap 6.0 mmol/L Blood Urea Nitrogen 23 mg/dl Creatinine 0.82 mg/dl Est Creatinine Clear Calc Drug Dose 39.9 ml/min Estimated GFR () 77.2 Estimated GFR (Non- 66.6 BUN/Creatinine Ratio 27.5 Random Glucose 99 mg/dl Calcium Level 8.6 mg/dl C-Reactive Protein 1.42 mg/dl (Leah Cleary CRNP) Assessment and Plan Ms. Solomon is an 82 year old woman here for dehiscence of her right shoulder after previous I & D 11/23. Initial injury was a fall and subsequent infection. Wound culture from 11/23 grew MSSA Right Shoulder dehiscence - plan for OR tomorrow - Continue IV ceftriaxone - NPO after MN - Hold warfarin and clopidegral Hx of right DVT popliteal artery below knee, on coumadin - INR 2.9 - Full dose lovenox 12-24 hours post procedure after hemostasis achieved - May want to consult vascular surgery for IVC filter placement after this surgery if unsure if further surgeries will be necessary - 5 mg Vitamin IV Vitamin K now and repeat INR this evening, may need additional dose Hx of possible GI bleeds due to AVM, Normocytic Anemia, GERD - continue protonix - repeat CBC am - continue iron supplement Asthma, COPD - continue home montelukast, Advair, and albuterol Parkinson's Disease - continue home Sinemet - continue ropinirole for restless leg Patient is baseline unable to walk so cannot assess exercise tolerance. She does have a number of comorbidities including recent DVT diagnosis. Her RCRI is between 0.9% - 6.6% for major cardiac event (unclear if wall motion abnormalities on previous echo are due to ischemic heart disease). At this point patient is probably as good as she is going to be but I would not call her optimal for surgery, however the need for the surgery likely outweighs the risk. Patient risks becoming septic if dehiscence and shoulder infection are not addressed. (Leah Cleary ., FANI) ENTERTAINMENT PRODUCTION PROFESSIONAL Physician Supervision Note: I interviewed and examined the patient. Discussed with Leah Cleary NP and agree with findings and plan as documented in the note. Any exceptions or clarifications are listed here: None Patient returns after a joint cleanout washout and antibiotic bead and implantation of her natural right shoulder with a wound dehiscence. Patient also during her recent hospital stay was diagnosed with a right peroneal DVT was put on anticoagulation with Coumadin. She is fully anticoagulated on presentation. The plans are to have her return to the OR for repair of her wound dehiscence her anticoagulation will be fully reversed and we would recommend postoperatively to initiate full dose Lovenox therapy when hemostasis is achieved likely approximately 12-24 hours post procedure. Because Coumadin was reversed with vitamin K she will likely require prolonged periods of her INR resume its therapeutic range. Her other medical problems are stable she is a Parkinson's disease with a resting tremor her asthma and GERD are also stable. We will continue to follow along with her hospital stay Thank you for this consultation Documented By: Baljit Johns (Baljit Johns M.D.)
[2017-12-21] MEDS: FERROUS SULFATE 325 MG TAB PO SCH (17:10)
[2017-12-21] MEDS: CARBIDOPA/LEVODOPA 25/100MG TAB PO SCH ×2 (17:10→21:01)
--- NOTE | 2017-12-21 18:16 | DIAGNOSTIC IMAGING REPORT ---
CHEST ONE VIEW PORTABLE CLINICAL HISTORY: Preoperative chest. Left basilar crackles COMPARISON STUDY: 11/26/2017 FINDINGS: There is a thoracolumbar scoliosis. The heart is the upper limits of normal in size. There is no failure. There is no focal pulmonary consolidation. There is improving aeration of the left lung base.[ IMPRESSION: No active disease in the chest. Electronically signed by: Shawn Engel M.D. 12/21/2017 6:15 PM Dictated Date/Time: 12/21/2017 6:14 PM
[2017-12-21] MEDS: FLUTICASONE/SALMETEROL 250/50 (ADVAIR) 14 PUFF/1 INHALER INH SCH (20:56)
[2017-12-21] MEDS ORDERED: PHYTONADIONE 5 MG TAB PO SCH (21:00)
[2017-12-21] MEDS: METOPROLOL TARTRATE 25 MG TAB PO SCH (21:00)
[2017-12-21] MEDS: ROPINIROLE HCL 1 MG TAB PO SCH (21:01)
[2017-12-21] MEDS: MONTELUKAST SOD 10 MG TAB PO SCH (21:01)
[2017-12-21 21:35] LABS: INR 1.7 (0.9-1.1)
[2017-12-22] VITALS (11 sets, daily range): BP systolic 120–200; BP diastolic 71–126; PULSE 100–113; TEMP 37–37.6; O2SAT 95–100; Ht 154.9 cm; Wt 53.2 kg
[2017-12-22] MEDS: SODIUM CHLORIDE 0.9% 1000ML 1,000 ML IV SCH ×2 (02:19→21:19)
[2017-12-22] MEDS ORDERED: CEFTRIAXONE SOD INJ 1000 MG in DEXTROSE 5% 50ML IV SCH (06:00)
[2017-12-22 07:25] LABS: HEMATOCRIT 31.8 % (37-47); HEMOGLOBIN 10.4 g/dL (12.0-16.0); MEAN CORPUSCULAR HEMOGLOBIN 31.7 pg (25-34); MEAN CORPUSCULAR HGB CONC 32.7 g/dl (32-36); MEAN PLATELET VOLUME 8.5 fL (7.4-10.4); PLATELET COUNT 303 K/uL (130-400); RED CELL DISTRIBUTION WIDTH CV 15.8 % (11.5-14.5); RED CELL DISTRIBUTION WIDTH SD 55.6 fL (36.4-46.3); WHITE BLOOD COUNT 6.25 K/uL (4.8-10.8)
[2017-12-22 07:33] LABS: INR 1.2 (0.9-1.1)
[2017-12-22 07:54] LABS: CALCIUM 8.5 mg/dl (8.5-10.1); CREATININE 0.75 mg/dl (0.60-1.20); POTASSIUM 4.2 mmol/L (3.5-5.1)
[2017-12-22] MEDS: FERROUS SULFATE 325 MG TAB PO SCH ×2 (08:30→17:37)
[2017-12-22] MEDS ORDERED: FENTANYL CITRATE INJ 50 MCG/1 ML 2 ML VIAL ONE (08:35)
[2017-12-22] MEDS ORDERED: MIDAZOLAM HCL 1 MG/ML 2ML VIAL ONE (08:35)
[2017-12-22] MEDS: PANTOprazole SOD 40 MG TAB PO SCH (08:42)
[2017-12-22] MEDS: METOPROLOL TARTRATE 25 MG TAB PO SCH ×2 (08:42→21:16)
[2017-12-22] MEDS: FLUTICASONE/SALMETEROL 250/50 (ADVAIR) 14 PUFF/1 INHALER INH SCH ×2 (08:43→21:16)
[2017-12-22] MEDS: CARBIDOPA/LEVODOPA 25/100MG TAB PO SCH ×4 (08:43→21:16)
[2017-12-22] MEDS: DOCUSATE SODIUM/SENNA 50/8.6MG TAB PO SCH (08:43)
[2017-12-22] MEDS ORDERED: CEFTRIAXONE SOD 1 GM VIAL IV SCH (09:00)
[2017-12-22] MEDS ORDERED: PROPOFOL IV EMULSION 10 MG/ML 20 ML VIAL ONE (09:18)
--- NOTE | 2017-12-22 09:57 | Hospitalist Progress Note ---
Hospitalist Progress Note Date of Service Dec 22, 2017. (Leah Cleary CRNP) Subjective Pt evaluation today including: conversation w/ patient, physical exam, chart review, lab review, review of inpatient medication list Voiding: no voiding problems Ms. Solomon is resting comfortably. She has no pain or other complaints. ROS Constitutional: no chills, aches, sweats or fever Respiratory: no sob,cough, sputum, or wheezing Cardiac: no chest pain, palpitations, edema, orthopnea or lightheadedness GI: no abdominal pain, nausea, vomiting, diarrhea or constipation : no dysuria or hesitancy Extremities: no joint pain or weakness Skin: no rash All other systems reviewed and negative (Leah Cleary CRNP) Medications Medications Administered Medications (Trade) Dose Ordered Sig/Joceline Route Start Time Stop Time Status Last Admin Dose Admin Sodium Chloride 1,000 ml @ 75 mls/hr [id number] IV 12/21/17 14:00 01/20/18 13:59 12/22/17 02:19 75 MLS/HR Carbidopa/Levodopa (Sinemet 25/ 100MG Tab) 1 tab QID PO 12/21/17 17:00 01/20/18 16:59 12/21/17 21:01 1 TAB Ferrous Sulfate (Feosol Tab) 325 mg BIDM PO 12/21/17 17:45 01/20/18 17:44 12/21/17 17:10 325 MG Salmeterol Xinafoate/ Fluticasone (Advair Diskus 250/50 Inh) 1 puff BID INH 12/21/17 21:00 01/20/18 20:59 12/21/17 20:56 1 PUFF Metoprolol Tartrate (Lopressor Tab) 25 mg BID PO 12/21/17 21:00 01/20/18 20:59 12/22/17 08:42 25 MG Montelukast Sodium (Singulair Tab) 10 mg HS PO 12/21/17 21:00 01/20/18 20:59 12/21/17 21:01 10 MG Ropinirole HCl (Requip Tab) 1 mg HS PO 12/21/17 21:00 01/20/18 20:59 12/21/17 21:01 1 MG Ceftriaxone Sodium 1000 mg/ Dextrose 60 ml @ 120 mls/hr Q24H IV 12/22/17 06:00 02/02/18 05:59 12/22/17 05:40 120 MLS/HR Phytonadione 5 mg/ Sodium Chloride 50.5 ml @ 101 mls/hr ONE ONCE IV 12/21/17 15:30 12/21/17 15:59 DC 12/21/17 17:09 101 MLS/HR Phytonadione (Mephyton Tab) 5 mg NOW STAT PO 12/21/17 23:33 12/21/17 23:35 DC 12/21/17 23:49 5 MG (Leah Cleary CRNP) Objective Vital Signs Date Time Temp Pulse Resp B/P (MAP) Pulse Ox O2 Delivery O2 Flow Rate FiO2 12/22/17 08:50 Room Air 12/22/17 08:22 95 Room Air 12/22/17 07:57 37.0 100 16 152/115 (127) 95 Room Air 12/21/17 23:45 Nasal Cannula 12/21/17 23:11 37.0 92 16 123/49 (73) 98 Room Air 12/21/17 20:58 114/53 (73) 12/21/17 18:00 37.2 96 20 124/89 (101) 96 Room Air 12/21/17 17:25 36.9 18 139/94 (109) 95 Room Air 12/21/17 17:10 36.4 90 18 140/84 (102) 95 Room Air 12/21/17 15:20 Room Air 12/21/17 15:09 36.8 93 18 152/95 (114) 98 Room Air 12/21/17 12:00 37.0 92 16 101/67 98 Room Air (Leah Cleary CRNP) Physical Exam Notes: General: no distress Eyes: normal inspection, PERLL Respiratory: chest non tender, clear to auscultation, normal breath sounds, no respiratory distress, no accessory muscle use Cardiac: regular rate and rhythm, no rub or gallop, no murmur, no edema, no jvd GI/: active bowel sounds, no abd pain or tenderness, soft, non distended Extremities: normal range of motion, normal strength, non tender Neuro/Psych: alert and oriented x 3, normal mood and affect Skin: normal color, dry (Leah Cleary ., FANI) Laboratory Results Last 24 Hours Test 12/21/17 12:41 12/21/17 21:07 12/22/17 07:01 White Blood Count 8.82 K/uL 6.25 K/uL Red Blood Count 3.40 M/uL 3.28 M/uL Hemoglobin 10.8 g/dL 10.4 g/dL Hematocrit 33.0 % 31.8 % Mean Corpuscular Volume 97.1 fL 97.0 fL Mean Corpuscular Hemoglobin 31.8 pg 31.7 pg Mean Corpuscular Hemoglobin Concent 32.7 g/dl 32.7 g/dl Platelet Count 330 K/uL 303 K/uL Mean Platelet Volume 8.5 fL 8.5 fL Neutrophils (%) (Auto) 67.3 % Lymphocytes (%) (Auto) 19.6 % Monocytes (%) (Auto) 6.7 % Eosinophils (%) (Auto) 5.3 % Basophils (%) (Auto) 0.3 % Neutrophils # (Auto) 5.93 K/uL Lymphocytes # (Auto) 1.73 K/uL Monocytes # (Auto) 0.59 K/uL Eosinophils # (Auto) 0.47 K/uL Basophils # (Auto) 0.03 K/uL RDW Standard Deviation 55.5 fL 55.6 fL RDW Coefficient of Variation 15.8 % 15.8 % Immature Granulocyte % (Auto) 0.8 % Immature Granulocyte # (Auto) 0.07 K/uL Erythrocyte Sedimentation Rate 21 mm/hr Prothrombin Time 30.0 SECONDS 18.0 SECONDS 13.0 SECONDS Prothromb Time International Ratio 2.9 1.7 1.2 Activated Partial Thromboplast Time 37.8 SECONDS Partial Thromboplastin Ratio 1.5 Sodium Level 139 mmol/L 142 mmol/L Potassium Level 3.7 mmol/L 4.2 mmol/L Chloride Level 104 mmol/L 109 mmol/L Carbon Dioxide Level 29 mmol/L 27 mmol/L Anion Gap 6.0 mmol/L 6.0 mmol/L Blood Urea Nitrogen 23 mg/dl 14 mg/dl Creatinine 0.82 mg/dl 0.75 mg/dl Est Creatinine Clear Calc Drug Dose 39.9 ml/min 43.6 ml/min Estimated GFR () 77.2 86.0 Estimated GFR (Non- 66.6 74.2 BUN/Creatinine Ratio 27.5 19.1 Random Glucose 99 mg/dl 104 mg/dl Calcium Level 8.6 mg/dl 8.5 mg/dl C-Reactive Protein 1.42 mg/dl Magnesium Level 2.0 mg/dl (Leah Cleary .FANI) Assessment and Plan Ms. Solomon is an 82 year old woman here for dehiscence of her right shoulder after previous I & D 11/23. Initial injury was a fall and subsequent infection. Wound culture from 11/23 grew MSSA Right Shoulder dehiscence - plan for OR today - Continue IV ceftriaxone - continue NPO - Hold warfarin and clopidegral Hx of right DVT popliteal artery below knee, on Coumadin - INR 2.9 on admission - reversed yesterday and today is 1.2 - Full dose lovenox 12-24 hours post procedure after hemostasis achieved - May want to consult vascular surgery for IVC filter placement after this surgery if unsure if further surgeries will be necessary - otherwise can restart Coumadin tonight if ok with primary Hx of possible GI bleeds due to AVM, Normocytic Anemia, GERD - continue protonix - Hgb stable this morning at 10.4 - continue iron supplement Asthma, COPD - continue home montelukast, Advair, and albuterol Parkinson's Disease - continue home Sinemet - continue ropinirole for restless leg HTN - continue metoprolol - prn hydralazine IV Patient is baseline unable to walk so cannot assess exercise tolerance. She does have a number of comorbidities including recent DVT diagnosis. Her RCRI is between 0.9% - 6.6% for major cardiac event (unclear if wall motion abnormalities on previous echo are due to ischemic heart disease). Patient does have significant comorbidities but surgery likely outweighs the risk. Patient risks becoming septic if dehiscence and shoulder infection are not addressed. (Leah Cleary CRNP) INFORMATION COORDINATOR Physician Supervision Note: I discussed with Leah Cleary NP and agree with findings and plan as documented in the note. Any exceptions or clarifications are listed here: None Patient s/p repair of a shoulder wound dehiscence. Pt had full anticoagulation reversed that was treating right peroneal DVT once hemostasis is acceptable by ortho will initiate full dose Lovenox therapy and Coumadin. Her other medical problems remain stable , Parkinson's disease ,asthma and GERD We will continue to follow along Documented By: Baljit Johns (Baljit Johns M.D.)
--- NOTE | 2017-12-22 11:58 | History & Physical Bridge Note ---
H&P Re-Evaluation Bridge Note: I have examined the patient, reviewed the History & Physical and in the interval since the performance of the History & Physical I have noted the following changes of clinical significance: No changes noted
[2017-12-22] MEDS ORDERED: ONDANSETRON INJ 2 MG/ML 2 ML VIAL IV PRN (12:00)
[2017-12-22] MEDS: VENLAFAXINE HCL XR 75 MG CAPXR PO SCH (12:00)
[2017-12-22] MEDS ORDERED: ATROPINE SULFATE 0.1 MG/ML 5ML SYR IV PRN (12:00)
[2017-12-22] MEDS ORDERED: HYDROmorphone INJ 2 MG/ML SYR/VIAL IV PRN (12:00)
[2017-12-22] MEDS ORDERED: LIDOCAINE HCL 2% 2 ML VIAL (20MG/ML) ONE (12:23)
[2017-12-22] MEDS ORDERED: BACITRACIN 50000 UNIT VIAL ONE (12:49)
[2017-12-22] MEDS ORDERED: TRAMADOL HCL 50 MG TAB PO PRN (14:30)
[2017-12-22] MEDS: ACETAMINOPHEN 500 MG TAB PO SCH ×3 (14:30→22:17)
[2017-12-22] MEDS ORDERED: ALUMINUM/MAGNESIUM/SIMETH (MAALOX MAX) 30 ML UDC PO PRN (14:30)
--- NOTE | 2017-12-22 14:42 | [facility] Operative Report ---
Operative Report Operative Date Dec 22, 2017. Pre-Operative Diagnosis Right Shoulder Wound dehiscence Post-Operative Diagnosis Right Shoulder Wound Dihiscence Procedure(s) Performed Right Shoulder Incision and Drainage and closure of wound dehiscence Surgeon Dr Shaw Secretary Office Clerk Surgeon(s) None Estimated Blood Loss 10cc Findings Hematoma and remnants of antibiotic beads Specimens 1: Right Shoulder Wound for Culture Drains 2 Hemovac Anesthesia Type General Disposition Recovery Room / PACU Indications The patient is an 82-year-old female who had previously undergone irrigation debridement of his shoulder infection. In her postoperative course she developed DVT and was placed on combination of Plavix Lovenox and Coumadin. She developed a significant postoperative hematoma anteriorly despite her drains. Evaluate her in the office 2 weeks after surgery and aspirated the region. The fluid was negative on culture. She still had a hematoma. The following week she had a dehiscence of the anterior incision. The superior incision had healed well. There is no purulent drainage from the wound no surrounding or edema. She had been on IV antibiotics for planned 6 week course of antibiotics. She presents for irrigation debridement and wound closure. Description of Procedure Risks, benefits and alternatives to surgery including, but not limited to, infection DVT, pain, stiffness, need for revision surgery, failure to relieve all symptoms, damage to blood vessels, damage to nerves, risk of anesthesia were discussed with the patient and they wished to proceed. The patient was identified. Laterality was confirmed and marked. The patient received a preoperative antibiotic. They were transferred to the operating room and placed in the supine position and induced into general endotracheal anesthesia per the anesthesia staff. The patient was then safely transferred to a slight beachchair position. All pressure points were well padded. The shoulder was prepped and draped in the usual sterile manner with Hibiclens. The superior incision is well-healed. The anterior wound had dehisced by length of approximately 2 cm. There was some hematoma visible in the wound. No purulent drainage. No other surrounding erythema. I debrided the surrounding hematoma with a curette and rongeur. There is also evidence of the previous antibiotic bead placement. I then thoroughly irrigated the wound with pulse evac. I then sharply debrided the skin to establish good healing, bleeding edges. I then placed 2 Hemovac drains one deep to the deltoid 1 superficial. The subcutaneous tissue was closed with interrupted 2-0 Vicryl suture. The skin was closed with interrupted 3-0 nylon. All needle and sponge counts were correct at the end of the prohe PA-C was necessary for assistance with procedure for assistance in positioning, prepping, draping, retraction and closure. wagner. The patient was transferred to the PACU in stable condition without apparent complication. I attest to the content of the Intraoperative Record and any orders documented therein. Any exceptions are noted below.
[2017-12-22] MEDS: HYDROmorphone INJ 0.5 MG/0.5 ML SYR ONE (15:20)
--- NOTE | 2017-12-22 15:42 | Anesthesiology Progress Note ---
Anesthesia Post Op Note Date & Time Dec 22, 2017 at 15:42 Vital Signs Pain Intensity: 0 Vital Signs Past 12 Hours Date Time Temp Pulse Resp B/P (MAP) Pulse Ox O2 Delivery O2 Flow Rate FiO2 12/22/17 15:27 36.6 99 16 180/95 (126) 100 Nasal Cannula 2 12/22/17 15:21 169/92 12/22/17 15:18 102 12 12/22/17 15:18 101 12 95 12/22/17 15:17 159/85 12/22/17 15:13 101 20 12/22/17 15:13 101 20 93 12/22/17 15:11 174/124 12/22/17 15:08 103 12 95 12/22/17 15:08 96 12 12/22/17 15:06 151/101 12/22/17 15:03 103 17 12/22/17 15:03 103 17 95 12/22/17 15:01 173/83 12/22/17 14:58 100 15 95 12/22/17 14:58 100 15 12/22/17 14:57 179/96 12/22/17 14:53 98 26 96 12/22/17 14:53 98 26 12/22/17 14:51 185/101 12/22/17 14:51 187/104 12/22/17 14:49 179/96 12/22/17 14:48 98 12/22/17 14:48 98 94 12/22/17 14:48 36.3 101 12 185/101 (119) 94 Room Air Oxymask 12/22/17 08:50 Room Air 12/22/17 08:22 95 Room Air 12/22/17 07:57 37.0 100 16 152/115 (127) 95 Room Air Notes Mental Status: alert / awake / arousable, participated in evaluation Pt Amnestic to Procedure: Yes Nausea / Vomiting: adequately controlled Pain: adequately controlled Airway Patency, RR, SpO2: stable & adequate BP & HR: stable & adequate Hydration State: stable & adequate Anesthetic Complications: no major complications apparent
[2017-12-22] MEDS ORDERED: HydrALAZINE HCL 20 MG/ML VIAL IV. PRN (17:15)
[2017-12-22] MEDS: WARFARIN SOD 3 MG TAB PO SCH (17:42)
[2017-12-22] MEDS: MONTELUKAST SOD 10 MG TAB PO SCH (21:16)
[2017-12-22] MEDS: ROPINIROLE HCL 1 MG TAB PO SCH (21:16)
--- NOTE | 2017-12-22 22:34 | Progress Note ---
Progress Note Date of Service Dec 22, 2017. Progress Note Got a call from the floor nurse stating that the patient has a mental status change. When asked for specifics the patient is not following commands and cannot tell staff her name. Per nurse both pupils are symmetrically dilated. Pt is moving UE spontaneously and less so LE. Patient is not an acute threat to herself. Patient is also not complaining of pain. Per nurse the patient did experience some sundowning the previous night but not to this extent. HPI was reviewed with the nurse - pt arrived to floor from I&D at 4pm and was able to feed herself - unclear if she recovered to her baseline. When asked if a stroke code should be called nurse consulted with another nurse and no affirmative answer was given, when I asked if either nurse appreciated any neurological deficits the answer given to me was in the negative. When asked if this is an acute or gradual mental status change the nurse stated that the mental status change was too acute for her liking - she did acknowledge this still may be consistent with hospital acquired delirium especially in the setting of weaning anesthesia. At this point my suspicion for stroke is low but we will order an urgent CT Head. On one hand the patient is an elderly female of low BMI with a known history of mild dementia, suggesting sundowning or hospital acquired delirium. On the other hand she does have A Fib and the INR has been reversed to be sub therapeurtic. Vital signs reviewed. I will wait for the CT Head results before further management. I have also asked the nurse to Page or QLIQ me when the patient arrives back to the floor and I will assess the patient. Other differential considered are a worsening of the primary condition (infection). I will consider lab work (CBC, Lactate, CRP) after my physical exam of the patient once she returns from the CT. Examined the patient after CT. CT head was normal, no acute bleed. Patient was able to move extremities (upper and lower) to command. She said hi to me but didn't respond to other commands. THere was a nurse in the room that was familiar with the patient from her last admission - confirms that there is a history of dementia and the patient took a while to recover from previous I&D but it was "nothing like this". Most recently VS reviewed and notable for tachycardia, lower BP and fever. In the setting of AMS there is a concern for sepsis. I do not think this is a CVA event. On exam, lungs were clear, lovell draining yellow urine, HR was tachy and irregular, R shoulder wrapped in dressing, abdomen is soft and non tender. A/P Possible Sepsis - Will get blood cultures, broaden ABX to Vancomycin and Zosyn, get a Lactate, CBC w diff and CMP. Will also hold Rocephin. Will get procal and Chest X-ray for new onset hypoxia. 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
--- NOTE | 2017-12-22 22:46 | DIAGNOSTIC IMAGING REPORT ---
HEAD WITHOUT CONTRAST (CT) CT DOSE: 537.48 mGy.cm HISTORY: Mental status change ACUTE MENTAL STATUS CHANGE TECHNIQUE: Multiaxial CT images of the head were performed without the use of intravenous contrast. A dose lowering technique was utilized adhering to the principles of ALARA. Comparison: 10/25/2017 Findings: The paranasal sinuses and mastoid air cells are clear. Considerable chronic small vessel change. No significant change in the prior study. There are no new or interval findings. Impression: Considerable chronic small vessel change. Age-related atrophy. No acute process. The above report was generated using voice recognition software. It may contain grammatical, syntax or spelling errors. Electronically signed by: Terry Chavis M.D. 12/22/2017 10:44 PM Dictated Date/Time: 12/22/2017 10:44 PM
[2017-12-22] MEDS ORDERED: VANCOMYCIN CONSULT ACTIVE PRN (23:30)
[2017-12-22] MEDS ORDERED: PIPERACILL/TAZOBAC CONSULT ACTIVE PRN (23:30)
[2017-12-23] MEDS ORDERED: VANCOMYCIN IV 1,250 MG in SODIUM CHLORIDE 0.9% 250ML 250 ML IV SCH ×2
[2017-12-23] MEDS ORDERED: PIPERACILL/TAZOBAC IV 3.375 GM in D5W 100 ML IV ONE ×2
[2017-12-23 00:23] LABS: BASO % 0.1 %; BASO ABS # 0.02 K/uL (0-0.2); EOS % 0.5 %; EOS ABS # 0.08 K/uL (0-0.5); HEMATOCRIT 30.3 % (37-47); HEMOGLOBIN 9.8 g/dL (12.0-16.0); IG# 0.07 K/uL (0.00-0.02); LYMPH % 5.1 %; LYMPH ABS # 0.81 K/uL (1.2-3.4); MEAN CELL VOLUME 98.1 fL (80-100); MEAN CORPUSCULAR HEMOGLOBIN 31.7 pg (25-34); MEAN CORPUSCULAR HGB CONC 32.3 g/dl (32-36); MEAN PLATELET VOLUME 8.5 fL (7.4-10.4); MONO % 6.3 %; MONO ABS # 1.01 K/uL (0.11-0.59); NEUT % 87.6 %; NEUT ABS # 13.98 K/uL (1.4-6.5); PLATELET COUNT 321 K/uL (130-400); RED CELL DISTRIBUTION WIDTH CV 15.8 % (11.5-14.5); RED CELL DISTRIBUTION WIDTH SD 56.7 fL (36.4-46.3); WHITE BLOOD COUNT 15.97 K/uL (4.8-10.8)
[2017-12-23 00:41] LABS: ALBUMIN 2.7 gm/dl (3.4-5.0); CALCIUM 8.4 mg/dl (8.5-10.1); CREATININE 0.74 mg/dl (0.60-1.20); POTASSIUM 3.7 mmol/L (3.5-5.1); TOTAL PROTEIN 6.1 gm/dl (6.4-8.2)
[2017-12-23 01:46] VITALS: O2SAT 100
[2017-12-23 03:16] VITALS: BP 124/61; PULSE 102; TEMP 37; O2SAT 94
--- NOTE | 2017-12-23 05:54 | DIAGNOSTIC IMAGING REPORT ---
CHEST ONE VIEW PORTABLE CLINICAL HISTORY: 82 years-old Female presenting with Hypoxia x 6 hrs s/p surgery. TECHNIQUE: Portable semiupright AP view of the chest was obtained. COMPARISON: PICC to FINDINGS: Atherosclerosis of the aortic arch. Cardiac silhouette top normal in size. Mildly low lung volumes. Minimal vague opacity at the lung bases. No large effusion or pneumothorax. Degenerative changes of the thoracic spine. Chronic right rotator cuff tear suggested with complete effacement of the acromiohumeral interval. Upper abdomen normal. IMPRESSION: 1. Minimal basilar opacities likely atelectasis. No convincing evidence of acute cardiopulmonary disease. Electronically signed by: Jhony Schmitz M.D. 12/23/2017 5:53 AM Dictated Date/Time: 12/23/2017 5:49 AM
[2017-12-23] MEDS: PIPERACILL/TAZOBAC IV 3.375 GM in D5W 100ML IV SCH ×3 (06:00→22:25)
[2017-12-23] MEDS ORDERED: PIPERACILL/TAZOBAC IV 3.375 GM in DEXTROSE 5% 100ML 100 ML IV SCH (06:00)
[2017-12-23] MEDS: ACETAMINOPHEN 500 MG TAB PO SCH ×3 (06:06→22:26)
[2017-12-23 07:38] VITALS: BP_SYST 104; BP_SYST 113; BP_DIAS 41; BP_DIAS 57; PULSE 106; TEMP 37; O2SAT 94
[2017-12-23] MEDS: FLUTICASONE/SALMETEROL 250/50 (ADVAIR) 14 PUFF/1 INHALER INH SCH ×2 (07:56→21:00)
[2017-12-23] MEDS: PANTOprazole SOD 40 MG TAB PO SCH (07:57)
[2017-12-23] MEDS: FERROUS SULFATE 325 MG TAB PO SCH ×2 (07:57→16:28)
[2017-12-23] MEDS: METOPROLOL TARTRATE 25 MG TAB PO SCH ×2 (07:57→21:02)
[2017-12-23] MEDS: VENLAFAXINE HCL XR 75 MG CAPXR PO SCH (07:57)
[2017-12-23] MEDS: CARBIDOPA/LEVODOPA 25/100MG TAB PO SCH ×4 (07:57→21:02)
--- NOTE | 2017-12-23 08:50 | Pharmacy Progress Note ---
Pharmacy Abx Dose Short Note Date of Service Dec 23, 2017. Assessment & Plan A/P Ms. Solomon is an 82yo F unbeknownst to the pharmacy kinetic service. Antibiotic coverage being broadened to vanco/zosyn for r/o sepsis. Blood cx and wound cx all currently pending at this juncture. Vanco: Received vanco 1250mg IV x1 (24mg/kg) 12/23/17 @0000. Will start Vanco 750mg (14mg/kg) q20 at 1800 today. Pt population p'kinetics: t1/2=17hrs, ke= 0.0409. Vanco trough ordered for 12/25/17 prior to the third maintenance dose. Goal trough: 15-20mcg/mL Zosyn: Dosed appropriately based on pt's clinical picture and renal fxn. Pharmacy will continue to follow and will adjust dose/frequency as necessary. Thank you.
[2017-12-23] MEDS ORDERED: ENOXAPARIN 60 MG/0.6 ML SYR SQ SCH (09:00)
--- NOTE | 2017-12-23 09:58 | Orthopedic Progress Note ---
Orthopedic Progress Note Date of Service Dec 23, 2017. Subjective Post OP Day: 1 Reports: feeling well, pain controlled w PO medications, Denies: complaints, chest pain, SOB, nausea / vomiting, light headedness Additional Notes: Doing well. No complaints. Shoulder is doing well. Objective N/V intact, capillary refill less than 2 sec., dressing C/D/I, incision C/D/I, A &O x3 RUE in sling. Dressing with mild bleeding on it. The hemovac has been removed. Well approximated incision. No erythema. RUE fingers are mobile. Sensation intact to light touch. Date Time Temp Pulse Resp B/P (MAP) Pulse Ox O2 Delivery O2 Flow Rate FiO2 12/23/17 07:38 37.0 106 15 113/57 (75) 94 Room Air 12/23/17 03:16 37.0 102 14 124/61 (82) 94 Room Air 12/23/17 01:46 100 Room Air 12/23/17 00:25 Nasal Cannula 5.0 12/22/17 23:30 37.5 113 14 120/73 (89) 99 Nasal Cannula 5.0 12/22/17 19:15 37.6 106 16 146/83 (104) 100 Nasal Cannula 2.0 12/22/17 18:15 37.4 108 16 149/88 (108) 100 Nasal Cannula 2.0 12/22/17 17:51 108 159/80 (106) 12/22/17 17:29 105 18 171/98 (122) 99 Nasal Cannula 2.0 12/22/17 17:15 37.3 100 16 197/126 (149) 100 Nasal Cannula 2.0 12/22/17 16:48 37.3 104 20 200/123 (148) 99 Nasal Cannula 2.0 12/22/17 16:30 99 Nasal Cannula 2.0 12/22/17 16:15 37.4 101 16 135/71 (92) 100 Nasal Cannula 2.0 12/22/17 16:15 Nasal Cannula 2.0 12/22/17 15:52 97 20 12/22/17 15:52 97 20 100 12/22/17 15:51 156/81 12/22/17 15:47 100 13 12/22/17 15:47 100 13 100 12/22/17 15:46 167/93 12/22/17 15:42 97 28 12/22/17 15:42 99 28 100 12/22/17 15:41 153/78 12/22/17 15:38 157/77 12/22/17 15:37 99 23 100 12/22/17 15:37 98 23 12/22/17 15:36 142/106 12/22/17 15:32 95 19 12/22/17 15:32 99 19 100 12/22/17 15:31 180/95 12/22/17 15:27 101 14 92 12/22/17 15:27 102 14 12/22/17 15:27 36.6 99 16 180/95 (126) 100 Nasal Cannula 2 12/22/17 15:26 149/80 12/22/17 15:22 101 19 95 12/22/17 15:22 100 19 12/22/17 15:21 169/92 12/22/17 15:18 102 12 12/22/17 15:18 101 12 95 12/22/17 15:17 159/85 12/22/17 15:13 101 20 12/22/17 15:13 101 20 93 12/22/17 15:11 174/124 12/22/17 15:08 103 12 95 12/22/17 15:08 96 12 12/22/17 15:06 151/101 12/22/17 15:03 103 17 12/22/17 15:03 103 17 95 12/22/17 15:01 173/83 12/22/17 14:58 100 15 95 12/22/17 14:58 100 15 12/22/17 14:57 179/96 12/22/17 14:53 98 26 96 12/22/17 14:53 98 26 12/22/17 14:51 185/101 12/22/17 14:51 187/104 12/22/17 14:49 179/96 12/22/17 14:48 98 12/22/17 14:48 98 94 12/22/17 14:48 36.3 101 12 185/101 (119) 94 Room Air Oxymask Laboratory Results 24 Hours: Test 12/22/17 23:35 White Blood Count 15.97 K/uL Red Blood Count 3.09 M/uL Hemoglobin 9.8 g/dL Hematocrit 30.3 % Mean Corpuscular Volume 98.1 fL Mean Corpuscular Hemoglobin 31.7 pg Mean Corpuscular Hemoglobin Concent 32.3 g/dl Platelet Count 321 K/uL Mean Platelet Volume 8.5 fL Neutrophils (%) (Auto) 87.6 % Lymphocytes (%) (Auto) 5.1 % Monocytes (%) (Auto) 6.3 % Eosinophils (%) (Auto) 0.5 % Basophils (%) (Auto) 0.1 % Neutrophils # (Auto) 13.98 K/uL Lymphocytes # (Auto) 0.81 K/uL Monocytes # (Auto) 1.01 K/uL Eosinophils # (Auto) 0.08 K/uL Basophils # (Auto) 0.02 K/uL Assessment & Plan Assessment: POD #1 s/p Right Shoulder Incision and Drainage and closure of wound dehiscence Plan: Continue to monitor wound. Continue IV Zosyn. If wound continues to do well and culture continue to show no growth, will consider D/C back to the [facility] tomorrow. Attending Addendum: I have seen and examined the patient, and agree with ANJANA Kaminski's assessment and plan. I am covering Orthopedic Surgery call for Dr. Escobar, who is unavailable. Justin Mendez MD Inhouse Planning Pain Management: Ultram, PO Tylenol DVT Prophylaxis: Lovenox Discharge Planning Discharge Planning: correction facility
--- NOTE | 2017-12-23 10:06 | Hospitalist Progress Note ---
Hospitalist Progress Note Date of Service Dec 23, 2017. (Annamarie Aguilar CRNP) Subjective Pt evaluation today including: conversation w/ patient, chart review, lab review Pain: Denies Voiding: no voiding problems 82 yo female s/p I&D right shoulder wound dehiscence. Pt denies pain this morning. States she feels well. Denies n/v. Tolerating PO. Per RN, pt was confused and pulled out hemovac drain. Pt alert and oriented this morning. Medicine consulted for metal status changes last evening. Acute CVA ruled out. Head CT showing considerable chronic small vessel changes. No acute process. Chest x-ray reviewed as well. Mild atelectasis noted. Wound culture pending. She remains on Zosyn and Vancomycin. Constitutional: No fever, No chills Respiratory: No shortness of breath Cardiovascular: No chest pain Abdomen: No pain, No nausea, No vomiting Musculoskeletal: No joint pain Female : No dysuria, No hematuria Heme: No abnormal bleeding/bruising Skin: No rash (Annamarie Aguilar CRNP) Objective Vital Signs Date Time Temp Pulse Resp B/P (MAP) Pulse Ox O2 Delivery O2 Flow Rate FiO2 12/23/17 07:38 37.0 106 15 113/57 (75) 94 Room Air 12/23/17 03:16 37.0 102 14 124/61 (82) 94 Room Air 12/23/17 01:46 100 Room Air 12/23/17 00:25 Nasal Cannula 5.0 12/22/17 23:30 37.5 113 14 120/73 (89) 99 Nasal Cannula 5.0 12/22/17 19:15 37.6 106 16 146/83 (104) 100 Nasal Cannula 2.0 12/22/17 18:15 37.4 108 16 149/88 (108) 100 Nasal Cannula 2.0 12/22/17 17:51 108 159/80 (106) 12/22/17 17:29 105 18 171/98 (122) 99 Nasal Cannula 2.0 12/22/17 17:15 37.3 100 16 197/126 (149) 100 Nasal Cannula 2.0 12/22/17 16:48 37.3 104 20 200/123 (148) 99 Nasal Cannula 2.0 12/22/17 16:30 99 Nasal Cannula 2.0 7/13/18 16:15 37.4 101 16 135/71 (92) 100 Nasal Cannula 2.0 7/13/18 16:15 Nasal Cannula 2.0 7/13/18 15:52 97 20 7/13/18 15:52 97 20 100 7/13/18 15:51 156/81 7/13/18 15:47 100 13 7/13/18 15:47 100 13 100 7/13/18 15:46 167/93 7/13/18 15:42 97 28 7/13/18 15:42 99 28 100 7/13/18 15:41 153/78 7/13/18 15:38 157/77 7/13/18 15:37 99 23 100 7/13/18 15:37 98 23 7/13/18 15:36 142/106 7//18 15:32 95 19 7/13/18 15:32 99 19 100 7/13/18 15:31 180/95 //18 15:27 101 14 92 7/18 15:27 102 14 7/18 15:27 36.6 99 16 180/95 (126) 100 Nasal Cannula 2 12/22/18 15:26 149/80 7/13/18 15:22 101 19 95 7/13/18 15:22 100 19 /13/18 15:21 169/92 //18 15:18 102 12 7/13/18 15:18 101 12 95 /13/18 15:17 159/85 7/13/18 15:13 101 20 7//18 15:13 101 20 93 7/13/18 15:11 174/124 12/22/18 15:08 103 12 95 7/13/18 15:08 96 12 7/13/18 15:06 151/101 7/13/18 15:03 103 17 7/13/18 15:03 103 17 95 13/18 15:01 173/83 12/22/18 14:58 100 15 95 /13/18 14:58 100 15 /13/18 14:57 179/96 13/18 14:53 98 26 96 7/13/18 14:53 98 26 7/13/18 14:51 185/101 13/18 14:51 187/104 7/13/18 14:49 179/96 12/22/17 14:48 98 12/22/17 14:48 98 94 12/22/17 14:48 36.3 101 12 185/101 (119) 94 Room Air Oxymask (Annamarie Aguilar CRNP) Physical Exam General Appearance: no apparent distress Eyes: normal inspection ENT: hearing grossly normal Neck: supple, no JVD Respiratory/Chest: lungs clear, normal breath sounds, no respiratory distress, no accessory muscle use Cardiovascular: regular rate, rhythm, no JVD Abdomen: normal bowel sounds, non tender, soft Extremities: non-tender, normal inspection, + pertinent finding (shoulder dressing with some drainage, but dry and intact) 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: alert, normal mood/affect, oriented x 3 Skin: normal color (Annamarie Aguilar CRNP) Laboratory Results Last 24 Hours Test 12/22/17 16:05 12/22/17 23:35 12/23/17 00:13 12/23/17 08:13 Bedside Glucose 82 mg/dl 123 mg/dl White Blood Count 15.97 K/uL Red Blood Count 3.09 M/uL Hemoglobin 9.8 g/dL Hematocrit 30.3 % Mean Corpuscular Volume 98.1 fL Mean Corpuscular Hemoglobin 31.7 pg Mean Corpuscular Hemoglobin Concent 32.3 g/dl Platelet Count 321 K/uL Mean Platelet Volume 8.5 fL Neutrophils (%) (Auto) 87.6 % Lymphocytes (%) (Auto) 5.1 % Monocytes (%) (Auto) 6.3 % Eosinophils (%) (Auto) 0.5 % Basophils (%) (Auto) 0.1 % Neutrophils # (Auto) 13.98 K/uL Lymphocytes # (Auto) 0.81 K/uL Monocytes # (Auto) 1.01 K/uL Eosinophils # (Auto) 0.08 K/uL Basophils # (Auto) 0.02 K/uL RDW Standard Deviation 56.7 fL RDW Coefficient of Variation 15.8 % Immature Granulocyte % (Auto) 0.4 % Immature Granulocyte # (Auto) 0.07 K/uL Sodium Level 140 mmol/L Potassium Level 3.7 mmol/L Chloride Level 106 mmol/L Carbon Dioxide Level 25 mmol/L Anion Gap 9.0 mmol/L Blood Urea Nitrogen 12 mg/dl Creatinine 0.74 mg/dl Est Creatinine Clear Calc Drug Dose 44.2 ml/min Estimated GFR () 87.4 Estimated GFR (Non- 75.4 BUN/Creatinine Ratio 15.6 Random Glucose 112 mg/dl Calcium Level 8.4 mg/dl Total Bilirubin 0.5 mg/dl Aspartate Amino Transf (AST/SGOT) 14 U/L Alanine Aminotransferase (ALT/SGPT) 7 U/L Alkaline Phosphatase 104 U/L Total Protein 6.1 gm/dl Albumin 2.7 gm/dl Globulin 3.4 gm/dl Albumin/Globulin Ratio 0.8 Procalcitonin 0.06 ng/ml Lactic Acid Level 1.0 mmol/L (Annamarie Aguilar CRNP) Assessment and Plan Right Shoulder dehiscence; POD #1 s/p I&D right shoulder Pt denies pain. White count had increased to 15.97 yesterday, but lactic acid and procalcitonin are normal. Will repeat a CBC this morning s/p her I&D and abx changes. Continue IV Vancomycin and Zosyn pending culture sensitivities. Hx of right DVT popliteal artery below knee, on Coumadin Remains on Coumadin and Lovenox. Will recheck INR today. Will increase dose of Lovenox to 1.5mg/kg qd until INR therapeutic. Consider filter placement if further surgeries will be needed in the future. Hx of possible GI bleeds due to AVM, Normocytic Anemia, GERD - continue protonix - Repeat CBC this morning. - continue iron supplement Asthma, COPD - continue home montelukast, Advair, and albuterol Parkinson's Disease - continue home Sinemet - continue ropinirole for restless leg HTN - BP currently controlled this morning. - continue metoprolol - prn hydralazine IV Nutrition Low albumin and protein. Will order BOOST nutrition supplements BID. (Annamarie Aguilar CRNP) [employer] Physician Supervision Note: I discussed with Annamarie Aguilar [employer] and agree with findings and plan as documented in the note. Any exceptions or clarifications are listed here: None Patient s/p repair of a shoulder wound dehiscence. Pt had full anticoagulation reversed that was treating right peroneal DVT, initiated full dose Lovenox therapy and Coumadin. Her other medical problems continue to remain stable , Parkinson's disease ,asthma and GERD Documented By: Baljit E CovalesBaljit Lewis M.D.
[2017-12-23 10:47] LABS: HEMATOCRIT 26.7 % (37-47); HEMOGLOBIN 8.7 g/dL (12.0-16.0); MEAN CELL VOLUME 97.4 fL (80-100); MEAN CORPUSCULAR HEMOGLOBIN 31.8 pg (25-34); MEAN CORPUSCULAR HGB CONC 32.6 g/dl (32-36); MEAN PLATELET VOLUME 8.5 fL (7.4-10.4); PLATELET COUNT 282 K/uL (130-400); RED CELL DISTRIBUTION WIDTH CV 16.2 % (11.5-14.5); RED CELL DISTRIBUTION WIDTH SD 57.2 fL (36.4-46.3)
[2017-12-23 10:56] LABS: INR 1.2 (0.9-1.1)
[2017-12-23] MEDS: SODIUM CHLORIDE 0.9% 1000ML 1,000 ML IV SCH ×2 (11:06→23:40)
[2017-12-23] MEDS: DOCUSATE SODIUM/SENNA 50/8.6MG TAB PO SCH (11:06)
[2017-12-23 15:10] VITALS: BP 116/77; PULSE 95; TEMP 37; O2SAT 96
[2017-12-23] MEDS: WARFARIN SOD 3 MG TAB PO SCH (16:28)
[2017-12-23] MEDS: VANCOMYCIN IV 750 MG in SODIUM CHLORIDE 0.9% 250ML 250 ML IV SCH (18:38)
[2017-12-23] MEDS: BOOST VANILLA OR BOOST GLUCOSE CONTROL CHOCOLATE PO SCH (21:01)
[2017-12-23] MEDS: ROPINIROLE HCL 1 MG TAB PO SCH (21:02)
[2017-12-23] MEDS: MONTELUKAST SOD 10 MG TAB PO SCH (21:02)
[2017-12-23 23:35] VITALS: BP 127/71; PULSE 88; TEMP 37; O2SAT 97
[2017-12-24] MEDS: PIPERACILL/TAZOBAC IV 3.375 GM in D5W 100ML IV SCH ×2 (06:05→13:19)
[2017-12-24] MEDS: ACETAMINOPHEN 500 MG TAB PO SCH ×3 (06:05→22:00)
[2017-12-24 07:10] LABS: HEMATOCRIT 30.4 % (37-47); HEMOGLOBIN 10.3 g/dL (12.0-16.0); MEAN CELL VOLUME 93.5 fL (80-100); MEAN CORPUSCULAR HEMOGLOBIN 31.7 pg (25-34); MEAN CORPUSCULAR HGB CONC 33.9 g/dl (32-36); MEAN PLATELET VOLUME 7.9 fL (7.4-10.4); PLATELET COUNT 485 K/uL (130-400); RED CELL DISTRIBUTION WIDTH CV 14.1 % (11.5-14.5); RED CELL DISTRIBUTION WIDTH SD 47.9 fL (36.4-46.3); WHITE BLOOD COUNT 12.39 K/uL (4.8-10.8)
[2017-12-24 07:12] LABS: INR 1.2 (0.9-1.1)
[2017-12-24 07:29] LABS: CALCIUM 8.1 mg/dl (8.5-10.1); CREATININE 0.72 mg/dl (0.60-1.20); POTASSIUM 3.4 mmol/L (3.5-5.1)
[2017-12-24 07:39] VITALS: BP 146/83; PULSE 86; TEMP 37.2; O2SAT 99
--- NOTE | 2017-12-24 08:10 | Orthopedic Progress Note ---
Orthopedic Progress Note Date of Service Dec 24, 2017. Subjective Post OP Day: 2 Reports: feeling well, pain controlled w PO medications, Denies: complaints Objective N/V intact, capillary refill less than 2 sec., dressing C/D/I, A&O x3 Right shoulder: anterior incision is well approximated. No erythema. Bloody drainage on the gauze next to the wound. Right hand fingers are mobile. Radial pulse 2/4. Sensation intact to light touch. Date Time Temp Pulse Resp B/P (MAP) Pulse Ox O2 Delivery O2 Flow Rate FiO2 12/24/17 07:39 37.2 86 15 146/83 (104) 99 Room Air 12/23/17 23:40 Room Air 12/23/17 23:35 37.0 88 18 127/71 (89) 97 Room Air 12/23/17 20:10 Room Air 12/23/17 16:00 Room Air 12/23/17 15:10 37.0 95 18 116/77 (90) 96 Room Air Laboratory Results 24 Hours: Test 12/23/17 10:24 12/24/17 06:02 Hematocrit 26.7 % 30.4 % Hemoglobin 8.7 g/dL 10.3 g/dL Prothromb Time International Ratio 1.2 1.2 Prothrombin Time 12.3 SECONDS 12.3 SECONDS Microbiology: Wound culture with Corynebacterium. Assessment & Plan Assessment: POD #2 s/p Right Shoulder Incision and Drainage and closure of wound dehiscence Plan: Wound culture final - shows Corynebacterium. Blood cultures negative so far. Continue IV Zosyn and Vancomycin, await final antibiotic recommendations. Possible d/c back to [facility] with appropriate antibiotic choice-- possibly back to [facility]. Will wait for blood cultures to become final before d/c. Attending Addendum: I have seen and examined the patient, and agree with ANJANA Kaminski's assessment and plan. I am covering Orthopedic Surgery call for Dr. Escobar, who is unavailable. Justin Mendez MD Inhouse Planning Pain Management: Ultram, PO Tylenol DVT Prophylaxis: Coumadin, Lovenox Discharge Planning Discharge Planning: [facility]
[2017-12-24] MEDS: FERROUS SULFATE 325 MG TAB PO SCH ×2 (08:45→17:10)
[2017-12-24] MEDS: FLUTICASONE/SALMETEROL 250/50 (ADVAIR) 14 PUFF/1 INHALER INH SCH ×2 (08:46→20:58)
[2017-12-24] MEDS: METOPROLOL TARTRATE 25 MG TAB PO SCH ×2 (08:47→20:56)
[2017-12-24] MEDS: PANTOprazole SOD 40 MG TAB PO SCH (08:47)
[2017-12-24] MEDS: CARBIDOPA/LEVODOPA 25/100MG TAB PO SCH ×4 (08:47→20:56)
[2017-12-24] MEDS: DOCUSATE SODIUM/SENNA 50/8.6MG TAB PO SCH (08:48)
[2017-12-24] MEDS: ENOXAPARIN 80 MG/0.8 ML SYR SQ SCH (08:49)
[2017-12-24] MEDS: BOOST VANILLA OR BOOST GLUCOSE CONTROL CHOCOLATE PO SCH ×2 (08:54→20:58)
[2017-12-24] MEDS: SODIUM CHLORIDE 0.9% 1000ML 1,000 ML IV SCH ×2 (08:56→22:54)
[2017-12-24] MEDS ORDERED: ENOXAPARIN 1.5 MG/KG SQ SCH (09:00)
[2017-12-24] MEDS: ONDANSETRON INJ 2 MG/ML 2 ML VIAL IV PRN ×2 (10:19→17:57)
--- NOTE | 2017-12-24 10:34 | Hospitalist Progress Note ---
Hospitalist Progress Note Date of Service Dec 24, 2017. (Annamarie Aguilar CRNP) Subjective Pt evaluation today including: conversation w/ patient, chart review, lab review Pain: Denies Voiding: no voiding problems 82 yo female s/p I&D right shoulder. Pt reports some nausea this morning. Denies vomiting. States she occasionally has an upset stomach. Denies abdominal or back pain this morning. Denies shoulder pain. White count improved to 12.39 this morning. Wound culture preliminarily negative. Constitutional: No fever, No chills Respiratory: No shortness of breath Cardiovascular: No chest pain Abdomen: + nausea, No pain, No vomiting Musculoskeletal: No joint pain Female : No dysuria, No hematuria Heme: No abnormal bleeding/bruising (Annamarie Aguilar CRNP) Objective Vital Signs Date Time Temp Pulse Resp B/P (MAP) Pulse Ox O2 Delivery O2 Flow Rate FiO2 12/24/17 10:02 Room Air 12/24/17 07:39 37.2 86 15 146/83 (104) 99 Room Air 12/23/17 23:40 Room Air 12/23/17 23:35 37.0 88 18 127/71 (89) 97 Room Air 12/23/17 20:10 Room Air 12/23/17 16:00 Room Air 12/23/17 15:10 37.0 95 18 116/77 (90) 96 Room Air (Annamarie Aguilar CRNP) Physical Exam General Appearance: no apparent distress Eyes: normal inspection ENT: hearing grossly normal Neck: supple, no JVD Respiratory/Chest: lungs clear, normal breath sounds, no respiratory distress, no accessory muscle use Cardiovascular: regular rate, rhythm, no JVD Abdomen: non tender, soft Extremities: non-tender, normal inspection, no pedal edema 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: alert, normal mood/affect, oriented x 3 Skin: normal color (Annamarie Aguilar CRNP) Laboratory Results Last 24 Hours Test 12/24/17 06:02 12/24/17 06:30 White Blood Count 12.39 K/uL Red Blood Count 3.25 M/uL Hemoglobin 10.3 g/dL Hematocrit 30.4 % Mean Corpuscular Volume 93.5 fL Mean Corpuscular Hemoglobin 31.7 pg Mean Corpuscular Hemoglobin Concent 33.9 g/dl RDW Standard Deviation 47.9 fL RDW Coefficient of Variation 14.1 % Platelet Count 485 K/uL Mean Platelet Volume 7.9 fL Prothrombin Time 12.3 SECONDS Prothromb Time International Ratio 1.2 Sodium Level 144 mmol/L Potassium Level 3.4 mmol/L Chloride Level 111 mmol/L Carbon Dioxide Level 26 mmol/L Anion Gap 7.0 mmol/L Blood Urea Nitrogen 10 mg/dl Creatinine 0.72 mg/dl Est Creatinine Clear Calc Drug Dose 45.5 ml/min Estimated GFR () 90.4 Estimated GFR (Non- 78.0 BUN/Creatinine Ratio 13.8 Random Glucose 111 mg/dl Calcium Level 8.1 mg/dl (Annamarie Aguilar CRNP) Assessment and Plan Right Shoulder dehiscence; POD #2 s/p I&D right shoulder Pt denies pain. White count improving. Continue IV Vancomycin and Zosyn per primary service. Hx of right DVT popliteal artery below knee, on Coumadin Remains on Coumadin and Lovenox. INR of 1.2 yesterday; will likely take 4-5 days to become therapeutic. Recommend d/c on Lovenox to 1.5mg/kg qd until INR therapeutic. Continue Coumadin. Resume Plavix upon discharge. Hypokalemia Potassium of 3.4 this morning. Will order 20meq PO today. Hx of possible GI bleeds due to AVM, Normocytic Anemia, GERD Continue protonix H&H improved to 10.3 and 30.4 this morning. Continue iron supplement. Asthma, COPD Continue home montelukast, Advair, and albuterol Parkinson's Disease Continue home Sinemet Continue ropinirole for restless leg HTN BP stable. Continue metoprolol PRN hydralazine IV Nutrition Low albumin and protein. Continue BOOST nutrition supplements BID. Pt Ok for d/c from medicine perspective. Will sign off for now. Recall PRN issues. Thanks for allowing us to participate in this pt's care. Discussed with Dr. Johns this morning. Please see his addendum for further input. (Annamarie Aguilar CRNP) [employer] Physician Supervision Note: I discussed with Annamarie Aguilar [employer] and agree with findings and plan as documented in the note. Any exceptions or clarifications are listed here: None Patient s/p repair of a shoulder wound dehiscence. Pt had full anticoagulation reversed that was treating right peroneal DVT, initiated full dose Lovenox therapy and Coumadin. Her other medical problems continue to remain stable , Parkinson's disease ,asthma and GERD corynebacterium is usually a contaminant, will ask ID to comment Documented By: Baljit Johns (Baljit Johns M.D.)
[2017-12-24] MEDS ORDERED: POTASSIUM CHLORIDE 20 MEQ TABCR PO ONE (12:00)
[2017-12-24] MEDS: VENLAFAXINE HCL XR 75 MG CAPXR PO SCH (12:30)
[2017-12-24] MEDS: VANCOMYCIN IV 750 MG in SODIUM CHLORIDE 0.9% 250ML 250 ML IV SCH (13:20)
[2017-12-24 15:21] VITALS: BP 137/58; PULSE 91; TEMP 37; O2SAT 98
[2017-12-24] MEDS: WARFARIN SOD 3 MG TAB PO SCH (15:47)
--- NOTE | 2017-12-24 15:54 | Medical Consult ---
Consultation Date of Consultation: Dec 24, 2017. Attending Physician: Jhony Shaw M.D. Reason for Consultation: Right shoulder infection History of Present Illness 82-year-old female known to the Infectious Disease service, who was admitted to the hospital in November with severe right shoulder pain and swelling in found to have evidence of septic arthritis with methicillin sensitive Staph aureus. Patient was eventually discharged home on IV ceftriaxone, and now admitted with two day history of wound dehiscence with seropurulent drainage. She was complaining of intermittent chills, but no report of fever. Now has undergone surgical incision and drainage and closure of the wound. He has been afebrile. Operative cultures and Gram stain are pending. Currently treated with vancomycin and Zosyn she is tolerating without apparent difficulty currently pain 2/10 in intensity right shoulder. Past Medical/Surgical History Medical Problems: (1) Altered mental status Status: Acute (2) Contusion of left hip and thigh Status: Acute (3) CVA (cerebral vascular accident) Status: Acute (4) Dens fracture Status: Acute (5) Dizziness Status: Acute (6) Expressive aphasia Status: Acute (7) Fall Status: Acute (8) Fall Status: Acute (9) Fall Status: Acute (10) Inability to ambulate due to left knee Status: Acute (11) Left knee sprain Status: Acute (12) TIA (transient ischemic attack) Status: Acute (13) TIA (transient ischemic attack) Status: Acute Medical Problems: (1) Anxiety (2) Asthma, Unspecified (3) Bronchitis (4) C2 cervical fracture (5) Depressive Disorder Nec (6) Diab Leticia Wo Compl, Type Ii Or Unspec Type, Not Uncntrld (7) Dyspnea (8) Esophageal Reflux (9) Hyperlipidemia Nec/Nos (10) Hypertension Nos (11) Infection of shoulder (12) Parkinson disease (13) Pneumonia (14) Slurring of speech (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 (16) Vertigo (17) Weakness Surgical Problems: (1) Hx of hysterectomy (2) Hx of tonsillectomy Family History Gallbladder disease Heart disease Hypertension Kidney disease Kidney stones Social History Smoking Status: Former Smoker Drug Use: none Marital Status: Housing Status: other Occupation Status: retired Allergies Coded Allergies: Diphenhydramine (Verified Allergy, Severe, SWELLING IN THROAT, 11/23/17) Iodine (Verified Allergy, Severe, THROAT SWELLING, 11/23/17) Shellfish (Verified Allergy, Severe, ANAPHYLAXIS AND FULL BODY HIVES, 11/23) Ciprofloxacin (Verified Allergy, Intermediate, HIVES FULL BODY, 11/23/17) Latex1 -Allergic Contact Dermititis (Verified Allergy, Intermediate, DERMATITIS, 11/23/17) Quinine (Verified Allergy, Intermediate, HIVES, 11/23/17) Triprolidine (Verified Allergy, Intermediate, HIVES, ASTHMA EXACERBATION, 11/23/17) Current Inpatient Medications Current Inpatient Medications Medications (Trade) Dose Ordered Sig/Joceline Route Start Time Stop Time Status Last Admin Dose Admin Sodium Chloride 1,000 ml @ 75 mls/hr [id number] IV 12/21/17 14:00 01/20/18 13:59 12/24/17 08:56 75 MLS/HR Acetaminophen (Tylenol Tab) 500 mg Q4 PRN PO 12/21/17 13:00 01/20/18 12:59 Albuterol (Ventolin Hfa Inhaler) 2 puffs Q6H PRN INH 12/21/17 13:00 01/20/18 12:59 Carbidopa/Levodopa (Sinemet 25/ 100MG Tab) 1 tab QID PO 12/21/17 17:00 01/20/18 16:59 12/24/17 12:30 1 TAB Ferrous Sulfate (Feosol Tab) 325 mg BIDM PO 12/21/17 17:45 01/20/18 17:44 12/24/17 08:45 325 MG Salmeterol Xinafoate/ Fluticasone (Advair Diskus 250/50 Inh) 1 puff BID INH 12/21/17 21:00 01/20/18 20:59 12/24/17 08:46 1 PUFF Folic Acid (Folvite Tab) 1 mg QAM PO 12/22/17 09:00 01/21/18 08:59 12/24/17 08:46 1 MG Hydroxyzine HCl (Vistaril Tab) 10 mg HS PRN PO 12/21/17 13:00 01/20/18 12:59 Metoprolol Tartrate (Lopressor Tab) 25 mg BID PO 12/21/17 21:00 01/20/18 20:59 12/24/17 08:47 25 MG Montelukast Sodium (Singulair Tab) 10 mg HS PO 12/21/17 21:00 01/20/18 20:59 12/23/17 21:02 10 MG Pantoprazole Sodium (Protonix Tab) 40 mg DAILY PO 12/22/17 09:00 01/21/18 08:59 12/24/17 08:47 40 MG Ropinirole HCl (Requip Tab) 1 mg HS PO 12/21/17 21:00 01/20/18 20:59 12/23/17 21:02 1 MG Senna/Docusate Sodium (Senokot S Tab) 1 tab DAILY PO 12/22/17 09:00 01/21/18 08:59 12/24/17 08:48 1 TAB Triamcinolone Acetonide (Kenalog 0.1% Cream) 1 appln BID PRN EXT 12/21/17 13:00 01/20/18 12:59 12/23/17 07:57 1 APPLN Venlafaxine HCl (effeXOR EXTENDED REL CAP) 75 mg DAILY@1200 PO 12/22/17 12:00 01/21/18 11:59 12/24/17 12:30 75 MG Acetaminophen (Tylenol Tab) 1,000 mg Q8H PO 12/22/17 14:30 01/21/18 14:29 12/24/17 13:20 1,000 MG Al Hydrox/Mg Hydrox/Simethicone (Maalox Max Susp) 15 ml Q4H PRN PO 12/22/17 14:30 01/21/18 14:29 Ondansetron HCl (Zofran Inj) 4 mg Q6H PRN IV 12/22/17 14:30 01/21/18 14:29 12/24/17 10:19 4 MG Tramadol HCl (Ultram Tab) `1-2 tabs for pain 1 tab ... Q4H PRN PO 12/22/17 14:30 01/21/18 14:29 Warfarin Sodium (Coumadin Tab) 3 mg DAILY@16 PO 12/22/17 16:00 01/21/18 15:59 12/24/17 15:47 3 MG Hydralazine HCl (HydrALAZINE INJ) 10 mg Q4H PRN IV. 12/22/17 17:15 01/21/18 17:14 12/22/17 17:18 10 MG Vancomycin HCl (Consult) 1 ea UD PRN N/A 12/22/17 23:30 01/21/18 23:29 Miscellaneous Information (Consult) 1 UD PRN N/A 12/22/17 23:30 01/21/18 23:29 Piperacillin Sod/ Tazobactam Sod 3.375 gm/Dextrose 115 ml @ 28.75 mls/ hr Q8H IV 12/23/17 06:00 02/03/18 05:59 12/24/17 13:19 28.75 MLS/HR Vancomycin HCl 750 mg/Sodium Chloride 265 ml @ 125 mls/hr Q20H IV 12/23/17 18:00 02/03/18 17:59 12/24/17 13:20 125 MLS/HR Enoxaparin Sodium (Consult) 1 [facility] PRN N/A 12/23/17 11:15 01/22/18 11:14 Enoxaparin Sodium (Lovenox Inj) 80 mg DAILY SQ 12/24/17 09:00 01/23/18 08:59 12/24/17 08:49 80 MG Enteral Nutritional Formula (Boost) 1 can BID PO 12/23/17 21:00 01/22/18 20:59 12/24/17 08:54 1 CAN Review of Systems All systems were reviewed and are negative except as per HPI Physical Exam Date Time Temp Pulse Resp B/P (MAP) Pulse Ox O2 Delivery O2 Flow Rate FiO2 12/24/17 15:21 37.0 91 16 137/58 (84) 98 Room Air 12/24/17 10:02 Room Air 12/24/17 07:39 37.2 86 15 146/83 (104) 99 Room Air 12/23/17 23:40 Room Air 12/23/17 23:35 37.0 88 18 127/71 (89) 97 Room Air 12/23/17 20:10 Room Air 12/23/17 16:00 Room Air General Appearance: WD/WN, no apparent distress Head: normocephalic, atraumatic Eyes: normal inspection, EOMI, sclerae normal ENT: normal ENT inspection, hearing grossly normal, pharynx normal Neck: supple, no adenopathy, thyroid normal, trachea midline Respiratory/Chest: chest non-tender, lungs clear, normal breath sounds, no respiratory distress Cardiovascular: regular rate, rhythm, no gallop, no murmur Abdomen/GI: normal bowel sounds, non tender, soft, no organomegaly Back: normal inspection, no CVA tenderness Extremities/Musculoskelatal: no calf tenderness, normal capillary refill, non- tender Neurologic/Psych: alert, normal mood/affect, oriented x 3 Skin: normal color, warm/dry, no rash, + pertinent finding (Score dressing intact, no purulent drainage) Lymphatic: no adenopathy Laboratory Results RUN DATE: 12/24/17 [facility] LAB PAGE 1 RUN TIME: 942 Specimen Inquiry PATIENT: EDELMIRA ALMAZAN LOC: [facility] U # : [id number] AGE/SX: 82/F ROOM: [facility] REG : 12/21/[address]: Jhony Shaw M.D. : 1935 BED: 2 DIS : STATUS: ADM IN TLOC: SPEC #: [id number] IAN: 12/22/17 STATUS: COMP REQ #: [id number] RECD: 12/22/[address]: Jhony Shaw M.D. SOURCE: DRAIN-SURF ENTR: 12/22/[address] [facility] [address]: Baljit Johns M.D. [facility]: Dominic MORENO Victoria J., D.O. ORDERED: BERNICE [employer]ERS/AL COMMENTS: RIGHT SHOULDER WOUND Procedure Result Verified Site GRAM STAIN Final 12/23/17-737 RESULT NO ORGANISMS SEEN NO WBCs SEEN SURFACE WOUND CULTURE Final 12/24/17-942 Organism 1 CORYNEBACTERIUM SPECIES QUANITY FEW SENS NO SENSITIVITY TO FOLLOW Last 24 Hours Test 12/24/17 06:02 12/24/17 06:30 White Blood Count 12.39 K/uL Red Blood Count 3.25 M/uL Hemoglobin 10.3 g/dL Hematocrit 30.4 % Mean Corpuscular Volume 93.5 fL Mean Corpuscular Hemoglobin 31.7 pg Mean Corpuscular Hemoglobin Concent 33.9 g/dl RDW Standard Deviation 47.9 fL RDW Coefficient of Variation 14.1 % Platelet Count 485 K/uL Mean Platelet Volume 7.9 fL Prothrombin Time 12.3 SECONDS Prothromb Time International Ratio 1.2 Sodium Level 144 mmol/L Potassium Level 3.4 mmol/L Chloride Level 111 mmol/L Carbon Dioxide Level 26 mmol/L Anion Gap 7.0 mmol/L Blood Urea Nitrogen 10 mg/dl Creatinine 0.72 mg/dl Est Creatinine Clear Calc Drug Dose 45.5 ml/min Estimated GFR () 90.4 Estimated GFR (Non- 78.0 BUN/Creatinine Ratio 13.8 Random Glucose 111 mg/dl Calcium Level 8.1 mg/dl Patient Name: EDELMIRA ALMAZAN Unit Number: [id number] Dictated: 12/23/17548 Transcribed: 12/23/17548 PBS Printed Date/Time: [~ rep prt dt]/[~ rep prt tm] [~ rep ct labl] - [~ rep ct ivnm] [facility] [place] [place] [address] Dictated: 12/23/17548 Transcribed: 12/23/17548 PBS Printed Date/Time: [~ rep prt dt]/[~ rep prt tm] [~ rep ct labl] - [~ rep ct ivnm] [~ rep ct add3]] CHEST ONE VIEW PORTABLE CLINICAL HISTORY: 82 years-old Female presenting with Hypoxia x 6 hrs s/p surgery. TECHNIQUE: Portable semiupright AP view of the chest was obtained. COMPARISON: PICC to FINDINGS: Atherosclerosis of the aortic arch. Cardiac silhouette top normal in size. Mildly low lung volumes. Minimal vague opacity at the lung bases. No large effusion or pneumothorax. Degenerative changes of the thoracic spine. Chronic right rotator cuff tear suggested with complete effacement of the acromiohumeral interval. Upper abdomen normal. IMPRESSION: 1. Minimal basilar opacities likely atelectasis. No convincing evidence of acute cardiopulmonary disease. Electronically signed by: Jhony Schmitz M.D. 12/23/2017 5:53 AM Dictated Date/Time: 12/23/2017 5:49 AM The status of this report is Signed. Draft = Not yet reviewed or approved by Radiologist. Signed = Reviewed and approved by Radiologist. <AttendingPhy>Jhony Shaw M.D.</AttendingPhy> <FamilyPhy>Mariela Alfonso D.O.</FamilyPhy> <PrimaryPhy>Mariela Alfonso D.O.</PrimaryPhy> <UnitNumber >[id number]</UnitNumber> <VisitNumber>[id number]</VisitNumber> <PatientName> EDELMIRA ALMAZAN</PatientName> <DateOfBirth>1935</DateOfBirth> <Location>W </Location> <ServiceDate></ServiceDate> <MNE>ESINDI</MNE> <OrderingPhy> Terry Araujo MD</OrderingPhy> <OrderingPhyMNE>f rep ord dr shultz</ OrderingPhyMNE> <DictatingPhyMNE>f rep dict dr shultz</DictatingPhyMNE> <CCListMNE> f rep ct joannee</CCListMNE> <AdmittingPhyMNE>f pt admit dr shultz</AdmittingPhyMNE> < AttendingPhyMNE>f pt attend dr shultz</AttendingPhyMNE> <ConsultingPhyMNE>f pt consult dr shultz</ConsultingPhyMNE> <FamilyPhyMNE>f pt fam dr shultz</FamilyPhyMNE> <OtherPhyMNE>f pt other dr shultz</OtherPhyMNE> < PrimaryPhyMNE>f pt prim care dr shultz</PrimaryPhyMNE> <ReferringPhyMNE>f pt referring dr shultz</ReferringPhyMNE> Assessment & Plan Patient with right shoulder infection, previously with methicillin sensitive Staph aureus, now with right knee bacterium. Vancomycin should provide adequate coverage and likely will require prolonged IV antibiotics. Will follow.
[2017-12-24] MEDS: MONTELUKAST SOD 10 MG TAB PO SCH (20:56)
[2017-12-24] MEDS: ROPINIROLE HCL 1 MG TAB PO SCH (20:56)
[2017-12-24 22:11] VITALS: BP 169/77; PULSE 104; TEMP 37; O2SAT 97
[2017-12-25] MEDS: ACETAMINOPHEN 500 MG TAB PO SCH ×3 (05:31→22:49)
[2017-12-25 05:48] LABS: HEMOGLOBIN 8.6 g/dL (12.0-16.0); MEAN CELL VOLUME 97.7 fL (80-100); MEAN CORPUSCULAR HEMOGLOBIN 32.3 pg (25-34); MEAN CORPUSCULAR HGB CONC 33.1 g/dl (32-36); MEAN PLATELET VOLUME 8.5 fL (7.4-10.4); PLATELET COUNT 261 K/uL (130-400); RED CELL DISTRIBUTION WIDTH CV 15.9 % (11.5-14.5); RED CELL DISTRIBUTION WIDTH SD 56.7 fL (36.4-46.3); WHITE BLOOD COUNT 5.46 K/uL (4.8-10.8)
[2017-12-25 06:02] LABS: INR 1.4 (0.9-1.1)
[2017-12-25 06:16] LABS: CREATININE 0.63 mg/dl (0.60-1.20); POTASSIUM 3.8 mmol/L (3.5-5.1)
--- NOTE | 2017-12-25 07:24 | Orthopedic Progress Note ---
Orthopedic Progress Note Date of Service Dec 25, 2017. Subjective Post OP Day: 3 Reports: feeling well, nausea / vomiting (Nausea yesterday PM, improved this AM but has not eated yet), Denies: complaints, chest pain, SOB, calf pain Additional Notes: States shed was feeling nauseous yesterday, did not vomit. She states she thinks another day in the hospital would be beneficial for her. Objective calves soft nontender, N/V intact, incision C/D/I, A&O x3, toes mobile Patient lying comfortbaly in bed, alert and oriented. Date Time Temp Pulse Resp B/P (MAP) Pulse Ox O2 Delivery O2 Flow Rate FiO2 12/24/17 22:11 37.0 104 17 169/77 (107) 97 Room Air 12/24/17 19:30 Room Air 12/24/17 15:30 Room Air 12/24/17 15:21 37.0 91 16 137/58 (84) 98 Room Air 12/24/17 10:02 Room Air 12/24/17 07:39 37.2 86 15 146/83 (104) 99 Room Air Laboratory Results 24 Hours: Test 12/25/17 05:24 Hematocrit 26.0 % Hemoglobin 8.6 g/dL Prothromb Time International Ratio 1.4 Prothrombin Time 14.3 SECONDS Assessment & Plan Assessment: POD #3 s/p Right Shoulder Incision and Drainage and closure of wound dehiscence Plan: -Wound culture final - shows Corynebacterium. Blood cultures negative so far. -Continue IV Zosyn and Vancomycin, await final antibiotic recommendations. Saw Dr. Chau yesterday who feels Vancomycin should provide adequate coverage and likely will need prolonged antibiotic therapy. -D/c back to [facility] with appropriate antibiotic choice, possibly today or tomorrow. Inhouse Planning Pain Management: Ultram, PO Tylenol DVT Prophylaxis: Coumadin, Lovenox Discharge Planning Discharge Planning: nursing home facility
[2017-12-25 07:29] VITALS: BP 138/80; PULSE 88; TEMP 36.9; O2SAT 94
--- NOTE | 2017-12-25 07:34 | Anesthesiology Progress Note ---
Anesthesia Post Op Note Date & Time Dec 25, 2017 at 07:34 Vital Signs Vital Signs Past 12 Hours Date Time Temp Pulse Resp B/P (MAP) Pulse Ox O2 Delivery O2 Flow Rate FiO2 12/25/17 07:29 36.9 88 17 138/80 (99) 94 Room Air 12/24/17 22:11 37.0 104 17 169/77 (107) 97 Room Air Notes Mental Status: alert / awake / arousable, participated in evaluation Pt Amnestic to Procedure: Yes Nausea / Vomiting: adequately controlled Pain: adequately controlled Airway Patency, RR, SpO2: stable & adequate BP & HR: stable & adequate Hydration State: stable & adequate Anesthetic Complications: no major complications apparent
[2017-12-25 08:15] VITALS: O2SAT 94
[2017-12-25] MEDS: FERROUS SULFATE 325 MG TAB PO SCH ×2 (08:44→17:07)
[2017-12-25] MEDS: FLUTICASONE/SALMETEROL 250/50 (ADVAIR) 14 PUFF/1 INHALER INH SCH ×2 (08:45→21:42)
[2017-12-25] MEDS: ONDANSETRON INJ 2 MG/ML 2 ML VIAL IV PRN (08:46)
[2017-12-25] MEDS: METOPROLOL TARTRATE 25 MG TAB PO SCH ×2 (08:46→21:43)
[2017-12-25] MEDS: PANTOprazole SOD 40 MG TAB PO SCH (08:46)
[2017-12-25] MEDS: CARBIDOPA/LEVODOPA 25/100MG TAB PO SCH ×4 (08:46→21:42)
[2017-12-25] MEDS: DOCUSATE SODIUM/SENNA 50/8.6MG TAB PO SCH (08:46)
[2017-12-25] MEDS: ENOXAPARIN 80 MG/0.8 ML SYR SQ SCH (08:46)
[2017-12-25] MEDS ORDERED: VANCOMYCIN TROUGH ONE (09:30)
[2017-12-25] MEDS: VANCOMYCIN IV 750 MG in SODIUM CHLORIDE 0.9% 250ML 250 ML IV SCH ×2 (10:36→21:41)
[2017-12-25] MEDS: BOOST VANILLA OR BOOST GLUCOSE CONTROL CHOCOLATE PO SCH ×2 (10:36→21:00)
--- NOTE | 2017-12-25 11:13 | Pharmacy Progress Note ---
Pharmacy Abx Dose Short Note Date of Service Dec 25, 2017. Assessment & Plan Item Value Date Time Vancomycin Level Trough 9.5 mcg/ml 12/25/17 09 Creatinine 0.63 mg/dl 12/25/17523 Est Creatinine Clear Calc Drug Dose 52.0 ml/min 12/25/17523 Assessment 82 year old female receiving Vancomycin for treatment of bone and joint infection in shoulder Day # 3 of antimicrobial therapy. Plan Vancomycin * Trough level of 9.5 mcg/mL is subtherapeutic, but this level was drawn prior to steady state * Change to 750 mg IV every 14 hours * Estimated pharmacokinetics: t1/2=14.4 hours, ke=0.048 * Goal trough level for Bone and Joint : 15 to 20 mcg/mL * Trough level ordered for: 12/27/17 at 0130 after 2 doses at this interval Pharmacy will continue to follow and will adjust dose/frequency as necessary. Thank you.
[2017-12-25] MEDS: VENLAFAXINE HCL XR 75 MG CAPXR PO SCH (12:47)
[2017-12-25] MEDS: SODIUM CHLORIDE 0.9% 1000ML 1,000 ML IV SCH (12:48)
[2017-12-25 13:06] VITALS: BP 153/63
--- NOTE | 2017-12-25 15:43 | Progress Note ---
Subjective Date of Service: Dec 25, 2017. Subjective Pt evaluation today including: conversation w/ patient, physical exam, chart review, lab review, conversation w/ natural remedy consultant, review of inpatient medication list Doing well, no complaint, Problem List Medical Problems: (1) Altered mental status Status: Acute (2) Contusion of left hip and thigh Status: Acute (3) CVA (cerebral vascular accident) Status: Acute (4) Dens fracture Status: Acute (5) Dizziness Status: Acute (6) Expressive aphasia Status: Acute (7) Fall Status: Acute (8) Fall Status: Acute (9) Fall Status: Acute (10) Inability to ambulate due to left knee Status: Acute (11) Left knee sprain Status: Acute (12) TIA (transient ischemic attack) Status: Acute (13) TIA (transient ischemic attack) Status: Acute Review of Systems Constitutional: + weakness, + fatigue, No fever, No chills, No sweats, No weight loss, No problem reported Eyes: No worsening of vision, No eye pain, No redness, No discharge, No diplopia ENT: No hearing loss, No unusual epistaxis, No nasal symptoms, No sore throat, No tinnitus, No dental problems, No trouble swallowing Respiratory: No cough, No sputum, No wheezing, No shortness of breath, No dyspnea on exertion, No dyspnea at rest, No hemoptysis Cardiac: No chest pain, No orthopnea, No PND, No edema, No claudication, No palpitations Abdomen: No pain, No nausea, No vomiting, No diarrhea, No constipation Musculoskeletal: + joint pain, No muscle pain, No swelling, No calf pain Female : No dysuria, No urinary frequency, No hematuria, No incontinence, No abnormal vaginal bleeding, No vaginal discharge Neurologic: No memory loss, No paralysis, No weakness, No numbness/tingling, No vertigo, No balance problems Psychiatric: No depression symptoms, No anhedonism, No anxiety, No insomnia, No substance abuse Heme: No abnormal bleeding/bruising, No clotting problems, No swollen lymph nodes, No night sweats Endo: No fatigue, No excessive thirst, No excessive urination Skin: No rash, No itch, No new/changing skin lesions, No color change, No bleeding Objective Vital Signs Date Time Temp Pulse Resp B/P (MAP) Pulse Ox O2 Delivery O2 Flow Rate FiO2 12/25/17 13:06 153/63 (93) 12/25/17 08:15 94 Room Air 12/25/17 07:29 36.9 88 17 138/80 (99) 94 Room Air 12/24/17 22:11 37.0 104 17 169/77 (107) 97 Room Air 12/24/17 19:30 Room Air Physical Exam General Appearance: WD/WN, no apparent distress Eyes: normal inspection, PERRL, EOMI, sclerae normal ENT: normal ENT inspection, hearing grossly normal, pharynx normal Neck: supple, no adenopathy, thyroid normal, no JVD, no carotid bruits, trachea midline Respiratory/Chest: chest non-tender, normal breath sounds, no respiratory distress, no accessory muscle use, + decreased breath sounds Cardiovascular: regular rate, rhythm, no edema, no gallop, no JVD, no murmur Abdomen: normal bowel sounds, non tender, soft, no organomegaly, no pulsatile mass Extremities: normal inspection, no pedal edema, no calf tenderness, normal capillary refill, pelvis stable, + pertinent finding (Right shoulder in sling,) 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: inspector automatic typewriter II-XII nml as tested, no motor/sensory deficits, alert, normal mood/affect, oriented x 3 Skin: normal color, warm/dry, no rash Lymphatic: no adenopathy Laboratory Results Last 24 Hours Test 12/25/17 05:24 12/25/17 09:21 White Blood Count 5.46 K/uL Red Blood Count 2.66 M/uL Hemoglobin 8.6 g/dL Hematocrit 26.0 % Mean Corpuscular Volume 97.7 fL Mean Corpuscular Hemoglobin 32.3 pg Mean Corpuscular Hemoglobin Concent 33.1 g/dl RDW Standard Deviation 56.7 fL RDW Coefficient of Variation 15.9 % Platelet Count 261 K/uL Mean Platelet Volume 8.5 fL Prothrombin Time 14.3 SECONDS Prothromb Time International Ratio 1.4 Sodium Level 144 mmol/L Potassium Level 3.8 mmol/L Chloride Level 112 mmol/L Carbon Dioxide Level 27 mmol/L Anion Gap 5.0 mmol/L Blood Urea Nitrogen 7 mg/dl Creatinine 0.63 mg/dl Est Creatinine Clear Calc Drug Dose 52.0 ml/min Estimated GFR () 96.8 Estimated GFR (Non- 83.5 BUN/Creatinine Ratio 10.9 Random Glucose 100 mg/dl Calcium Level 8.0 mg/dl Vancomycin Level Trough 9.5 mcg/ml Assessment and Plan 82-year-old white female admitted to orthopedic service because of right Shoulder dehiscence, s/p I&D right shoulder Sputum is consulted for medical management Right Shoulder dehiscence; POD #3 s/p I&D right shoulder, Continue IV Vancomycin and Zosyn per primary service infectious disease Hx of right DVT popliteal artery below knee, on Lovenox bridging for Coumadin, INR is 1.4 today recommend d/c on Lovenox to 1.5mg/kg qd until INR therapeutic. Continue Coumadin. Resume Plavix upon discharge. Hypokalemia, resolved Hx of possible GI bleeds due to AVM, Normocytic Anemia, GERD Continue protonix, discussed with patient the isk and benefit of the on blood thinner for DVT, she is willing to take on a risk Asthma, COPD Continue home montelukast, Advair, and albuterol Parkinson's Disease Continue home Sinemet Continue ropinirole for restless leg HTN BP stable. Continue metoprolol PRN hydralazine IV Nutrition Low albumin and protein. Continue BOOST nutrition supplements BID. Pt Ok for d/c from medicine perspective. Will sign off for now. Recall PRN issues. Continued [facility] stay due to: multiple IV medications needed Discharge planning: uncertain
[2017-12-25 15:50] VITALS: BP 142/53; PULSE 88; TEMP 37.1; O2SAT 97
[2017-12-25] MEDS: WARFARIN SOD 3 MG TAB PO SCH (17:06)
[2017-12-25 20:00] VITALS: O2SAT 94
--- NOTE | 2017-12-25 20:31 | Infectious Disease Progress Nt ---
Progress Note Date of Service Dec 25, 2017. Subjective Pt evaluation today including: conversation w/ patient, physical exam, chart review, lab review, review of studies, conversation w/ partner management consultant, review of inpatient medication list Patient offering no new complaints today. Remains afebrile. Minimal pain in right shoulder. No purulent drainage. No other new complaints. All Other Systems: Reviewed and Negative Medications Current Inpatient Medications Medications (Trade) Dose Ordered Sig/Joceline Route Start Time Stop Time Status Last Admin Dose Admin Acetaminophen (Tylenol Tab) 500 mg Q4 PRN PO 12/21/17 13:00 01/20/18 12:59 Albuterol (Ventolin Hfa Inhaler) 2 puffs Q6H PRN INH 12/21/17 13:00 01/20/18 12:59 Carbidopa/Levodopa (Sinemet 25/ 100MG Tab) 1 tab QID PO 12/21/17 17:00 01/20/18 16:59 12/25/17 17:06 1 TAB Ferrous Sulfate (Feosol Tab) 325 mg BIDM PO 12/21/17 17:45 01/20/18 17:44 12/25/17 17:07 325 MG Salmeterol Xinafoate/ Fluticasone (Advair Diskus 250/50 Inh) 1 puff BID INH 12/21/17 21:00 01/20/18 20:59 12/25/17 08:45 1 PUFF Folic Acid (Folvite Tab) 1 mg QAM PO 12/22/17 09:00 01/21/18 08:59 12/25/17 08:45 1 MG Hydroxyzine HCl (Vistaril Tab) 10 mg HS PRN PO 12/21/17 13:00 01/20/18 12:59 Metoprolol Tartrate (Lopressor Tab) 25 mg BID PO 12/21/17 21:00 01/20/18 20:59 12/25/17 08:46 25 MG Montelukast Sodium (Singulair Tab) 10 mg HS PO 12/21/17 21:00 01/20/18 20:59 12/24/17 20:56 10 MG Pantoprazole Sodium (Protonix Tab) 40 mg DAILY PO 12/22/17 09:00 01/21/18 08:59 12/25/17 08:46 40 MG Ropinirole HCl (Requip Tab) 1 mg HS PO 12/21/17 21:00 01/20/18 20:59 12/24/17 20:56 1 MG Senna/Docusate Sodium (Senokot S Tab) 1 tab DAILY PO 12/22/17 09:00 01/21/18 08:59 12/25/17 08:46 1 TAB Triamcinolone Acetonide (Kenalog 0.1% Cream) 1 appln BID PRN EXT 12/21/17 13:00 01/20/18 12:59 12/23/17 07:57 1 APPLN Venlafaxine HCl (effeXOR EXTENDED REL CAP) 75 mg DAILY@1200 PO 12/22/17 12:00 01/21/18 11:59 12/25/17 12:47 75 MG Acetaminophen (Tylenol Tab) 1,000 mg Q8H PO 12/22/17 14:30 01/21/18 14:29 12/25/17 15:13 1,000 MG Al Hydrox/Mg Hydrox/Simethicone (Maalox Max Susp) 15 ml Q4H PRN PO 12/22/17 14:30 01/21/18 14:29 Ondansetron HCl (Zofran Inj) 4 mg Q6H PRN IV 12/22/17 14:30 01/21/18 14:29 12/25/17 08:46 4 MG Tramadol HCl (Ultram Tab) `1-2 tabs for pain 1 tab ... Q4H PRN PO 12/22/17 14:30 01/21/18 14:29 Warfarin Sodium (Coumadin Tab) 3 mg DAILY@16 PO 12/22/17 16:00 01/21/18 15:59 12/25/17 17:06 3 MG Hydralazine HCl (HydrALAZINE INJ) 10 mg Q4H PRN IV. 12/22/17 17:15 01/21/18 17:14 12/22/17 17:18 10 MG Vancomycin HCl (Consult) 1 ea UD PRN N/A 12/22/17 23:30 01/21/18 23:29 Enoxaparin Sodium (Consult) 1 ea UD PRN N/A 12/23/17 11:15 01/22/18 11:14 Enoxaparin Sodium (Lovenox Inj) 80 mg DAILY SQ 12/24/17 09:00 01/23/18 08:59 12/25/17 08:46 80 MG Enteral Nutritional Formula (Boost) 1 can BID PO 12/23/17 21:00 01/22/18 20:59 12/25/17 10:36 1 CAN Vancomycin HCl 750 mg/Sodium Chloride 265 ml @ 125 mls/hr Q14H IV 12/25/17 22:00 02/05/18 21:59 Objective Vital Signs Date Time Temp Pulse Resp B/P (MAP) Pulse Ox O2 Delivery O2 Flow Rate FiO2 12/25/17 15:50 37.1 88 16 142/53 (82) 97 Room Air 12/25/17 13:06 153/63 (93) 12/25/17 08:15 94 Room Air 12/25/17 07:29 36.9 88 17 138/80 (99) 94 Room Air 12/24/17 22:11 37.0 104 17 169/77 (107) 97 Room Air Physical Exam General Appearance: WD/WN, no apparent distress Eyes: normal inspection, EOMI, sclerae normal ENT: normal ENT inspection, hearing grossly normal, pharynx normal Neck: supple, no adenopathy, thyroid normal, trachea midline Respiratory/Chest: chest non-tender, lungs clear, normal breath sounds, no respiratory distress Cardiovascular: regular rate, rhythm, no gallop, no murmur Abdomen: normal bowel sounds, non tender, soft, no organomegaly Extremities: non-tender, no calf tenderness, normal capillary refill 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: alert, normal mood/affect, oriented x 3 Skin: normal color, no rash, + pertinent finding ( Dressing clean and intact right shoulder) Lymphatic: no adenopathy Laboratory Results Last 24 Hours Test 12/25/17 05:24 12/25/17 09:21 White Blood Count 5.46 K/uL Red Blood Count 2.66 M/uL Hemoglobin 8.6 g/dL Hematocrit 26.0 % Mean Corpuscular Volume 97.7 fL Mean Corpuscular Hemoglobin 32.3 pg Mean Corpuscular Hemoglobin Concent 33.1 g/dl RDW Standard Deviation 56.7 fL RDW Coefficient of Variation 15.9 % Platelet Count 261 K/uL Mean Platelet Volume 8.5 fL Prothrombin Time 14.3 SECONDS Prothromb Time International Ratio 1.4 Sodium Level 144 mmol/L Potassium Level 3.8 mmol/L Chloride Level 112 mmol/L Carbon Dioxide Level 27 mmol/L Anion Gap 5.0 mmol/L Blood Urea Nitrogen 7 mg/dl Creatinine 0.63 mg/dl Est Creatinine Clear Calc Drug Dose 52.0 ml/min Estimated GFR () 96.8 Estimated GFR (Non- 83.5 BUN/Creatinine Ratio 10.9 Random Glucose 100 mg/dl Calcium Level 8.0 mg/dl Vancomycin Level Trough 9.5 mcg/ml Assessment and Plan Patient with right shoulder infection, previously with methicillin sensitive Staph aureus, now with Corynebacterium. Vancomycin should provide adequate coverage and likely will require prolonged IV antibiotics , the range of 4-6 weeks. Will discuss with all involved. Will follow.
[2017-12-25] MEDS: ROPINIROLE HCL 1 MG TAB PO SCH (21:44)
[2017-12-25] MEDS: MONTELUKAST SOD 10 MG TAB PO SCH (21:44)
[2017-12-25 22:55] VITALS: BP 146/82; PULSE 99; TEMP 36.4; O2SAT 96
[2017-12-26] MEDS: ACETAMINOPHEN 500 MG TAB PO SCH ×2 (05:55→14:30)
[2017-12-26 06:43] LABS: HEMATOCRIT 26.9 % (37-47); HEMOGLOBIN 8.7 g/dL (12.0-16.0); MEAN CELL VOLUME 97.5 fL (80-100); MEAN CORPUSCULAR HEMOGLOBIN 31.5 pg (25-34); MEAN CORPUSCULAR HGB CONC 32.3 g/dl (32-36); MEAN PLATELET VOLUME 8.7 fL (7.4-10.4); PLATELET COUNT 337 K/uL (130-400); RED CELL DISTRIBUTION WIDTH CV 15.7 % (11.5-14.5); RED CELL DISTRIBUTION WIDTH SD 55.5 fL (36.4-46.3); WHITE BLOOD COUNT 6.28 K/uL (4.8-10.8)
[2017-12-26 06:52] LABS: INR 1.6 (0.9-1.1)
[2017-12-26 07:15] LABS: CALCIUM 8.5 mg/dl (8.5-10.1); CREATININE 0.57 mg/dl (0.60-1.20); POTASSIUM 3.6 mmol/L (3.5-5.1)
--- NOTE | 2017-12-26 07:31 | Discharge Instructions ---
Discharge Instructions Date of Service Dec 26, 2017. Admission Reason for Admission: Rt Shoulder Wound Dehiscence Discharge Discharge Diagnosis / Problem: Right Shoulder Wound Dehiscence Discharge Goals Goal(s): Decrease discomfort, Improve function, Increase independence Activity Recommendations Activity Level: Assistance Required Therapies: Physical Therapy, Occupational Therapy . Additional Information Patient informed of condition: Yes Advance Directives: No DNR: No Level of Care: Skilled Communicable Disease: No Prognosis: Stable Amado Catheter: No Instructions / Follow-Up Instructions / Follow-Up Daily dressing changes. Use sling when ambulating. Ice to shoulder regularly You will be getting daily antibiotics through an IV. You will also have blood work drawn at certain times to monitor the antibiotic. The results will be sent to Dr Chau. He will change your antibiotic if it needs to be changed. F/U with Dr Shaw in 10-14 days. Call for appointment [phone] F/U with Dr Chau in 10-14 days. Call for appointment. [phone] Current Hospital Diet Patient's current hospital diet: AHA Diet (Heart Healthy) Discharge Diet Recommended Diet: AHA Diet (Heart Healthy) Procedures Procedures Performed: Right Shoulder Incision and Drainage and closure of wound dehiscence Pending Studies Studies pending at discharge: no Physician Orders On Transfer Dressing Changes: daily IV Therapy: Vancomycin 750mg IV q14h for 4-6 weeks Vital Signs: routine Additional Orders: Vancomycin trough levels q3 days or as per Dr Chau. Weekly CBC, BMP, ESR; Please send results to Dr Chau. Daily INR draws. results to PCP When INR is 2.0 or greater, stop giving Lovenox. Laboratory Results Hemoglobin A1c Test 11/24/17 05:56 Range/Units Estimated Average Glucose 146 mg/dl Hemoglobin A1c 6.7 H 4.5-5.6 % Medical Emergencies . Who to Call and When: Medical Emergencies: If at any time you feel your situation is an emergency, please call 911 immediately. . Non-Emergent Contact Non-Emergency issues call your: Surgeon Call Non-Emergent contact if: temperature is above 101.5, your pain is not controlled, your pain is worsening, wound has increased drainage, wound has increased redness . . "Provider Documentation" section prepared by Néstor Snow. . Core Measure Problem Core Measures: None [place] Drug Monitoring Program Search Results: patient reviewed within database, no issues identified
[2017-12-26 07:58] VITALS: BP 158/60; PULSE 96; TEMP 36.9; O2SAT 94
[2017-12-26 07:59] VITALS: O2SAT 94
[2017-12-26 08:00] VITALS: O2SAT 94
[2017-12-26] MEDS ORDERED: ACET-24 PO (08:09)
[2017-12-26] MEDS ORDERED: VANC1INJ9 IV (08:09)
[2017-12-26] MEDS ORDERED: TRAM-10 PO (08:09)
[2017-12-26] MEDS ORDERED: LVNIS80 SQ (08:09)
[2017-12-26] MEDS: FERROUS SULFATE 325 MG TAB PO SCH (08:28)
[2017-12-26] MEDS: BOOST VANILLA OR BOOST GLUCOSE CONTROL CHOCOLATE PO SCH (09:00)
--- NOTE | 2017-12-26 09:43 | Orthopedic Progress Note ---
Orthopedic Progress Note Date of Service Dec 26, 2017. Subjective Post OP Day: 4 Reports: feeling well, pain controlled w PO medications, Denies: complaints, chest pain, SOB, nausea / vomiting, light headedness, calf pain Objective N/V intact, A&O x3 radial/median/ulnar nerves intact. adequate ROM hand/wrist/elbow Date Time Temp Pulse Resp B/P (MAP) Pulse Ox O2 Delivery O2 Flow Rate FiO2 12/26/17 08:00 94 Room Air 12/26/17 07:59 94 Room Air 12/26/17 07:58 36.9 96 16 158/60 (92) 94 Room Air 12/25/17 23:15 Room Air 12/25/17 22:55 36.4 99 18 146/82 (103) 96 Room Air 12/25/17 20:00 94 Room Air 12/25/17 15:50 37.1 88 16 142/53 (82) 97 Room Air 12/25/17 13:06 153/63 (93) Laboratory Results 24 Hours: Test 12/26/17 06:01 Hematocrit 26.9 % Hemoglobin 8.7 g/dL Prothromb Time International Ratio 1.6 Prothrombin Time 16.2 SECONDS Assessment & Plan Assessment: POD #4 s/p Right Shoulder Incision and Drainage and closure of wound dehiscence Plan: -Wound culture final - shows Corynebacterium. Blood cultures negative so far. -Dr Chau recommending Vancomycin, should provide adequate coverage for Corynebacterium & methicillin sensitive Staph Aureus, will require 6 weeks of IV Abx. -D/c back to [facility] with appropriate antibiotic choice, likely later today. Inhouse Planning Pain Management: Ultram, PO Tylenol DVT Prophylaxis: Coumadin, Lovenox Discharge Planning Discharge Planning: [facility]
[2017-12-26] MEDS: FLUTICASONE/SALMETEROL 250/50 (ADVAIR) 14 PUFF/1 INHALER INH SCH (09:46)
[2017-12-26] MEDS: CARBIDOPA/LEVODOPA 25/100MG TAB PO SCH ×2 (09:47→12:22)
[2017-12-26] MEDS: PANTOprazole SOD 40 MG TAB PO SCH (09:48)
[2017-12-26] MEDS: DOCUSATE SODIUM/SENNA 50/8.6MG TAB PO SCH (09:48)
[2017-12-26] MEDS: METOPROLOL TARTRATE 25 MG TAB PO SCH (09:48)
[2017-12-26] MEDS: ENOXAPARIN 80 MG/0.8 ML SYR SQ SCH (09:49)
--- NOTE | 2017-12-26 11:06 | Infectious Disease Progress Nt ---
Progress Note Date of Service Dec 26, 2017. Subjective Pt evaluation today including: conversation w/ patient, physical exam, chart review, lab review, review of studies, conversation w/ business risk consultant, review of inpatient medication list Patient offers no new complaints today. Remains afebrile. Shoulder pain improving. Blood cultures remain negative. All Other Systems: Reviewed and Negative Medications Current Inpatient Medications Medications (Trade) Dose Ordered Sig/Joceline Route Start Time Stop Time Status Last Admin Dose Admin Acetaminophen (Tylenol Tab) 500 mg Q4 PRN PO 12/21/17 13:00 01/20/18 12:59 Albuterol (Ventolin Hfa Inhaler) 2 puffs Q6H PRN INH 12/21/17 13:00 01/20/18 12:59 Carbidopa/Levodopa (Sinemet 25/ 100MG Tab) 1 tab QID PO 12/21/17 17:00 01/20/18 16:59 12/26/17 09:47 1 TAB Ferrous Sulfate (Feosol Tab) 325 mg BIDM PO 12/21/17 17:45 01/20/18 17:44 12/25/17 17:07 325 MG Salmeterol Xinafoate/ Fluticasone (Advair Diskus 250/50 Inh) 1 puff BID INH 12/21/17 21:00 01/20/18 20:59 12/26/17 09:46 1 PUFF Folic Acid (Folvite Tab) 1 mg QAM PO 12/22/17 09:00 01/21/18 08:59 12/26/17 09:48 1 MG Hydroxyzine HCl (Vistaril Tab) 10 mg HS PRN PO 12/21/17 13:00 01/20/18 12:59 Metoprolol Tartrate (Lopressor Tab) 25 mg BID PO 12/21/17 21:00 01/20/18 20:59 12/26/17 09:48 25 MG Montelukast Sodium (Singulair Tab) 10 mg HS PO 12/21/17 21:00 01/20/18 20:59 12/25/17 21:44 10 MG Pantoprazole Sodium (Protonix Tab) 40 mg DAILY PO 12/22/17 09:00 01/21/18 08:59 12/26/17 09:48 40 MG Ropinirole HCl (Requip Tab) 1 mg HS PO 12/21/17 21:00 01/20/18 20:59 12/25/17 21:44 1 MG Senna/Docusate Sodium (Senokot S Tab) 1 tab DAILY PO 12/22/17 09:00 01/21/18 08:59 12/25/17 08:46 1 TAB Triamcinolone Acetonide (Kenalog 0.1% Cream) 1 appln BID PRN EXT 12/21/17 13:00 01/20/18 12:59 12/23/17 07:57 1 APPLN Venlafaxine HCl (effeXOR EXTENDED REL CAP) 75 mg DAILY@1200 PO 12/22/17 12:00 01/21/18 11:59 12/25/17 12:47 75 MG Acetaminophen (Tylenol Tab) 1,000 mg Q8H PO 12/22/17 14:30 01/21/18 14:29 12/26/17 05:55 1,000 MG Al Hydrox/Mg Hydrox/Simethicone (Maalox Max Susp) 15 ml Q4H PRN PO 12/22/17 14:30 01/21/18 14:29 Ondansetron HCl (Zofran Inj) 4 mg Q6H PRN IV 12/22/17 14:30 01/21/18 14:29 12/25/17 08:46 4 MG Tramadol HCl (Ultram Tab) `1-2 tabs for pain 1 tab ... Q4H PRN PO 12/22/17 14:30 01/21/18 14:29 Warfarin Sodium (Coumadin Tab) 3 mg DAILY@16 PO 12/22/17 16:00 01/21/18 15:59 12/25/17 17:06 3 MG Hydralazine HCl (HydrALAZINE INJ) 10 mg Q4H PRN IV. 12/22/17 17:15 01/21/18 17:14 12/22/17 17:18 10 MG Vancomycin HCl (Consult) 1 ea UD PRN N/A 12/22/17 23:30 01/21/18 23:29 Enoxaparin Sodium (Consult) 1 ea UD PRN N/A 12/23/17 11:15 01/22/18 11:14 Enoxaparin Sodium (Lovenox Inj) 80 mg DAILY SQ 12/24/17 09:00 8/14/18 08:59 12/26/17 09:49 80 MG Enteral Nutritional Formula (Boost) 1 can BID PO 12/23/17 21:00 01/22/18 20:59 12/25/17 21:00 1 CAN Vancomycin HCl 750 mg/Sodium Chloride 265 ml @ 125 mls/hr Q14H IV 12/25/17 22:00 02/05/18 21:59 12/25/17 21:41 125 MLS/HR Heparin Sodium (Porcine) (Heparin 10 Unit/ ml 5 ml Flush) 5 ml PRN PRN FLUSH 12/26/17 01:00 01/25/18 00:59 12/26/17 00:50 5 ML Objective Vital Signs Date Time Temp Pulse Resp B/P (MAP) Pulse Ox O2 Delivery O2 Flow Rate FiO2 12/26/17 08:00 94 Room Air 12/26/17 07:59 94 Room Air 12/26/17 07:58 36.9 96 16 158/60 (92) 94 Room Air 12/25/17 23:15 Room Air 12/25/17 22:55 36.4 99 18 146/82 (103) 96 Room Air 12/25/17 20:00 94 Room Air 12/25/17 15:50 37.1 88 16 142/53 (82) 97 Room Air 12/25/17 13:06 153/63 (93) Physical Exam General Appearance: WD/WN, no apparent distress Eyes: normal inspection, EOMI, sclerae normal ENT: normal ENT inspection, pharynx normal Neck: supple, no adenopathy, thyroid normal, trachea midline Respiratory/Chest: chest non-tender, lungs clear, normal breath sounds, no respiratory distress Cardiovascular: regular rate, rhythm, no gallop, no murmur Abdomen: normal bowel sounds, non tender, soft, no organomegaly Extremities: non-tender, no calf tenderness, normal capillary refill 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: alert, oriented x 3 Skin: normal color, warm/dry, no rash Lymphatic: no adenopathy Laboratory Results Last 24 Hours Test 12/26/17 06:01 White Blood Count 6.28 K/uL Red Blood Count 2.76 M/uL Hemoglobin 8.7 g/dL Hematocrit 26.9 % Mean Corpuscular Volume 97.5 fL Mean Corpuscular Hemoglobin 31.5 pg Mean Corpuscular Hemoglobin Concent 32.3 g/dl RDW Standard Deviation 55.5 fL RDW Coefficient of Variation 15.7 % Platelet Count 337 K/uL Mean Platelet Volume 8.7 fL Prothrombin Time 16.2 SECONDS Prothromb Time International Ratio 1.6 Sodium Level 142 mmol/L Potassium Level 3.6 mmol/L Chloride Level 109 mmol/L Carbon Dioxide Level 27 mmol/L Anion Gap 6.0 mmol/L Blood Urea Nitrogen 7 mg/dl Creatinine 0.57 mg/dl Est Creatinine Clear Calc Drug Dose 57.4 ml/min Estimated GFR () 100.1 Estimated GFR (Non- 86.3 BUN/Creatinine Ratio 11.8 Random Glucose 97 mg/dl Calcium Level 8.5 mg/dl Assessment and Plan Patient with right shoulder infection, previously with methicillin sensitive Staph aureus, now with Corynebacterium. Vancomycin should provide adequate coverage and will require prolonged IV antibiotics , in the range of 4-6 weeks. Will follow as an outpatient.
[2017-12-26 11:50] VITALS: BP 144/49; PULSE 90; TEMP 37.2; O2SAT 95
[2017-12-26] MEDS: VENLAFAXINE HCL XR 75 MG CAPXR PO SCH (12:21)
[2017-12-26] MEDS: VANCOMYCIN IV 750 MG in SODIUM CHLORIDE 0.9% 250ML 250 ML IV SCH (12:21)
[2017-12-26 13:00] VITALS: BP 144/49; PULSE 90; TEMP 37.2; O2SAT 95
--- NOTE | 2017-12-26 18:54 | Discharge Summary ---
Orthopedic Discharge Summary Admission Date/Reason Dec 21, 2017 at 11:59 Rt Shoulder Wound Dehiscence. Discharge Date/Disposition Dec 26, 2017 shelter facility Diagnosis Principal Diagnosis: Right Shoulder Wound Dehiscence Secondary Diagnoses/Problems: Altered mental status, HTN, Asthma/COPD, Parkinson's, DVT Procedure(s) Performed I&D Right Shoulder wound Consultations -Dr. Baljit Johns of [facility] hospitalist -Dr. Amish Chau of Infectious Disease Medication Reconciliation New Medications: Tramadol (Ultram) 50 Mg Tab 50 MG PO Q4H PRN for Pain for 5 Days, #20 TAB Vancomycin Hcl In Dextrose (Vancomycin Hcl In Dextros) 1 Inj Inj 750 MG IV Q14H for 30 Days Acetaminophen (Sb Non-Aspirin Extra Stre) 500 Mg Tab 500 MG PO Q4 PRN for MILD PAIN/FEVER>101 for 10 Days, TAB Enoxaparin (Lovenox) 80 Mg/0.8 Ml Inj 80 MG SQ DAILY for 7 Days Continued Medications: Albuterol Hfa (Ventolin Hfa) 200 Puffs/86050 Mcg Aers 2 PUFFS INH Q6H PRN for BREATHING/ASTHMA, #1 INHALER Carbidopa/Levodopa (Sinemet 25MG/100MG) Tab 2 TABS PO QID, TAB Clopidogrel Bisulfate (Clopidogrel) 75 Mg Tab 75 MG PO QAM for 30 Days, #30 TAB Cyanocobalamin (B-12) 1,000 Mcg Sub 1000 MCG PO DAILY, #30 TABS 5 Refills Ferrous Sulfate (Ferrous Sulfate) 325 Mg Tab 325 MG PO BIDM for 30 Days, TAB Fluticasone Prop/Salmeterol (Advair Diskus 250/50 60 Dose) 1 Ea Aerp 1 PUFF INH BID, INHALER Folic Acid (Folic Acid) 1 Mg Tab 1 MG PO QAM, #30 TABS 0 Refills Hydroxyzine HCl (Hydroxyzine HCl) 10 Mg Tab 10 MG PO HS PRN for ITCHING/ANXIETY Melatonin (Melatonin) 3 Mg Tab 3 MG PO HS Metoprolol Tartrate (Lopressor) (Lopressor) 25 Mg Tab 25 MG PO BID, #60 TAB 5 Refills Montelukast Sodium (Singulair) 10 Mg Tab 10 MG PO HS, TAB Pantoprazole (Protonix) 40 Mg Tab 40 MG PO DAILY, 0 Refills Ropinirole HCl (Ropinirole HCl) 1 Mg Tab 1 MG PO HS for 30 Days, TAB Sennosides-Docusate Sodium (Senna S) 1 Tab Tab 1 TAB PO DAILY @ NOON Triamcinolone Acet (Aristocort 0.1%) 90 Appln/30 Gm Cr 1 APPLN TOP BID PRN for RASH Venlafaxine Hcl (Effexor Extended Rel) 75 Mg Capcr 75 MG PO DAILY@1200, CAP Warfarin Sod (Coumadin) 3 Mg Tab 3 MG PO DAILY@16 for 30 Days, #30 TAB 2 Refills Discontinued Medications: Acetaminophen (Tylenol) 500 Mg Tab 500 MG PO Q4 PRN for MILD PAIN/FEVER>101 MAX 3GM/24HR Ceftriaxone Sodium (Rocephin) 1 Gm Inj 1000 MG IV DAILY for 40 Days Enoxaparin (Enoxaparin Sodium) 60 Mg/0.6 Ml Inj 60 MG SQ Q12 for 5 Days Tramadol HCl (Tramadol HCl) 50 Mg Tab 50 MG PO Q6H PRN for Pain, #30 TAB 0 Refills Admission Physical Exam As per Admitting History & Physical. Hospital Course Patient presented to the hospital from a direct admit on 12/22/18 due to a right shoulder wound dehiscence 4 weeks s/p right septic shoulder I&D. Dr. Baljit Johns of the medicine service was consulted for medical management during her stay. Her Warfarin was reversed upon admission and she underwent I&D of her right shoulder wound on 7/18. Wound cultures were taken at that time. On the evening of POD# 0, patient developed an altered mental status. CT scan of her head was negative for any acute findings. She was switched from Rocephin to IV Vancomycin and Zosyn at that time out of concern for sepsis. Blood cultures were taken and were negative. Patient's mental status returned to baseline on POD #1. Her wound culture was positive for Corynebacterium. Dr. Amish Chau of Infectious disease was consulted and recommended 4-6 weeks of IV Vancomycin upon discharge. On POD #2 patient noted to have some nausea that resolved by the next morning. Please refer to daily progress notes for complete details. After exam on 12/26/18 patient was felt to be stable for discharge back to [facility]. She will follow up with Dr. Shaw in 10-14 days from her surgery for reevaluation and suture removal, sooner if having any concerns. Patient will follow up with Dr. Chau for any dosing adjustments for the Vancomycin that may be needed. Discharge Instructions Please refer to the electronic Patient Visit Report (Discharge Instructions) for additional information.
[2017-12-27] MEDS ORDERED: VANCOMYCIN TROUGH ONE (01:30)
--- NOTE | 2017-12-27 12:26 | EDITING REQUIRED CODING QUERY ---
DEBRIDEMENT DOCUMENTATION To promote full compliance with coding requirements relating to patient care, physician participation is requested in all cases of table runner uncertainty. Please assist us with the question(s) below: Please place an X in the parenthesis (x). If other, please document the finding: Type of Debridement: ( ) Excisional Debridement- Cutting away necrotic, devitalized tissue or slough to the level of viable tissue using a sharp instrument (i.e. scalpel, scissors, etc.) ( ) Non Excisional Debridement- The removal of necrotic, devitalized tissue or slough by means of scraping, mechanical brushing, flushing, or washing (i.e. irrigation,whirlpool);minor removal of loose fragments. ( ) Other (please specify): Instrument Used: ( ) Scissors ( ) Scalpel ( ) Curette ( ) Other (please specify): Depth of Debridement: ( ) Skin ( ) Skin and Subcutaneous Tissue ( ) Skin, Subcutaneous Tissue and Muscle ( ) Skin, Subcutaneous Tissue, Muscle and Bone ( ) Other (please specify): Thank you Magalis Esparza
--- NOTE | 2017-12-27 12:27 | EDITING REQUIRED CODING QUERY ---
SEPSIS To promote full compliance with coding requirements relating to patient care, physician participation is requested in all cases of interior surface insulation worker uncertainty. Please assist us with the question(s) below: In responding to this query, please exercise your independent professional judgement. The fact that a question is asked does not imply that any particular answer is desired or expected. We appreciate your clarification on this issue. Throughout the medical record, you have clearly documented a localized infection and your patient has clinical evidence of a generalized sepsis or severe sepsis. The term urosepsis is a nonspecific entity and is coded as an UTI. If the patient has sepsis, severe sepsis, from an urinary source or some other source, please clarify in your response below. The medical record reflects the following clinical findings: (With dates as appropriate) (Body temperature of >38.3 C(101 F) or <36 C(96.8F), pulse >90/minute, respirations >20/minute, WBC count >12,000 or <4,000, altered mental status, significant edema or positive fluid balance, hyperglycemia without diabetes, hypotension, metabolic acidosis (elev. lactate level, anion gap or reduced blood pH), shock, positive blood culture (enter organism) ()Bacteremia (Nonspecific laboratory finding of bacteria in the blood) Specify Organism () Present on Admission () Not present on admission () Unable to clinically determine () Septicemia (Systemic disease associated with the presence of pathogenic microorganisms in the blood): Specify Organism () Present on Admission () Not present on admission () Unable to clinically determine () Sepsis Specify Organism Specify Associated Condition/Diagnosis () Present on Admission () Not present on admission () Unable to clinically determine () Severe Sepsis (Sepsis associated with acute organ dysfunction) Specify Organism Specify Associated Condition/Diagnosis () Present on Admission () Not present on admission () Unable to clinically determine () Septic Shock (Severe sepsis with acute circulatory failure, unexplained by other causes) () Present on Admission () Not present on admission () Unable to clinically determine () Other, patient has:
--- NOTE | 2017-12-29 13:03 | EDITING REQUIRED CODING QUERY ---
CODING QUERY To promote full compliance with coding requirements relating to patient care, provider participation is requested in all cases of lean manufacturing coordinator uncertainty. Please assist us with the question(s) below: Coding Question(s): There is concern for Sepsis documented. Please clarify below, in your clinical opinion. ( ) There was Possible Sepsis treated during this admission ( ) The Possible Sepsis was ruled-out Physician's Response(s): Thank you Magalis Esparza Principal Diagnosis: "_that condition established after study, to be chiefly responsible for occasioning the admission of the patient to the hospital for care." Co-Existing Principal Diagnosis: "_when two or more diagnoses equally meet the criteria for principal diagnosis as determined by the circumstances of admission, diagnostic work up, and/or therapy provided, and the Alphabetic Index, Tabular List, or another coding guideline does not provide sequencing direction, any one of the diagnoses may be sequenced first." "When the physician has documented what appears to be a current diagnosis in the body of the record, but has not included the diagnosis in the final diagnostic statement, the physician should be asked whether the diagnosis should be added." ([facility] 2 QTR90. p3-4)
--- NOTE | 2017-12-29 13:06 | CODING QUERY NO DIAGNOSIS ---
DEBRIDEMENT DOCUMENTATION To promote full compliance with coding requirements relating to patient care, physician participation is requested in all cases of marine diesel mechanic uncertainty. Please assist us with the question(s) below: Please place an X in the parenthesis (x). If other, please document the finding: Type of Debridement: ( ) Excisional Debridement- Cutting away necrotic, devitalized tissue or slough to the level of viable tissue using a sharp instrument (i.e. scalpel, scissors, etc.) ( ) Non Excisional Debridement- The removal of necrotic, devitalized tissue or slough by means of scraping, mechanical brushing, flushing, or washing (i.e. irrigation,whirlpool);minor removal of loose fragments. ( ) Other (please specify): Instrument Used: ( ) Scissors ( ) Scalpel ( ) Curette ( ) Other (please specify): Depth of Debridement: ( ) Skin ( ) Skin and Subcutaneous Tissue ( ) Skin, Subcutaneous Tissue and Muscle ( ) Skin, Subcutaneous Tissue, Muscle and Bone ( ) Other (please specify): Provider Signature: Date: Thank you Magalis Vieyra [facility] [employer] Information Management Once completed, please kindly fax back to [phone] For questions please call [phone]
--- NOTE | 2017-12-29 13:10 | CODING QUERY NO DIAGNOSIS ---
CODING QUERY To promote full compliance with coding requirements relating to patient care, provider participation is requested in all cases of commissions specialist uncertainty. Please assist us with the question(s) below: Coding Question(s): There is concern for Sepsis documented. Please clarify below, in your clinical opinion. ( ) There was Possible Sepsis treated during this admission ( ) The Possible Sepsis was ruled-out Physician's Response(s): Provider Signature: Date: Thank you Magalis Vieyra [facility] Information Management Once completed, please kindly fax back to [phone] For questions please call [phone]
--- NOTE | 2018-01-10 06:41 | EDITING REQUIRED CODING QUERY ---
CODING QUERY To promote full compliance with coding requirements relating to patient care, provider participation is requested in all cases of sales account specialist uncertainty. Please assist us with the question(s) below: Coding Question(s): There is concern for Sepsis documented on your 12/22/17 Progress Note and it is also mentioned on the Discharge Summary. Please clarify below, in your clinical opinion. ( ) There was Possible Sepsis treated during this admission. Please specify the POA status below. ( ) Present on Admission ( ) Not Present On 12/21 admission - this was not present until 12/22 ( x ) Undetermined if Present on Admission ( ) The Possible Sepsis was ruled-out Physician's Response(s): This patient was followed by Dr. Chau from Infectious Disease during the admission. If you need further clarification of sepsis being present, he would be a better source, as he saw the patient on more than 1 occasion. Thank you Magalis Esparza Principal Diagnosis: "_that condition established after study, to be chiefly responsible for occasioning the admission of the patient to the hospital for care." Co-Existing Principal Diagnosis: "_when two or more diagnoses equally meet the criteria for principal diagnosis as determined by the circumstances of admission, diagnostic work up, and/or therapy provided, and the Alphabetic Index, Tabular List, or another coding guideline does not provide sequencing direction, any one of the diagnoses may be sequenced first." "When the physician has documented what appears to be a current diagnosis in the body of the record, but has not included the diagnosis in the final diagnostic statement, the physician should be asked whether the diagnosis should be added." (Source Coding [facility] 2 QTR90. p3-4)
[2018-01-24] MEDS ORDERED: CEFD300C3 PO (14:58)
[2018-01-24] MEDS ORDERED: CMD2 PO (15:08)
== END 2017-12-26 14:46 | DRG 907 ==
LOC: C.MSW 11:59
PROVIDERS: ADMIT Orthopaedic Surgery; ATTEND Orthopaedic Surgery
PROC: 0HQBXZZ Repair Right Upper Arm Skin, External Approach (ICD-10-PCS; principal; 2017-12-22 11:45)
PROC: 0KB70ZZ Excision of Right Upper Arm Muscle, Open Approach (ICD-10-PCS; principal; 2017-12-22 11:45)
DX: T81.31XA Disruption of external operation (surgical) wound, not elsewhere classified, initial encounter (principal); A41.9 Sepsis, unspecified organism; L76.31 Postprocedural hematoma of skin and subcutaneous tissue following a dermatologic procedure; M00.811 Arthritis due to other bacteria, right shoulder; B96.89 Other specified bacterial agents as the cause of diseases classified elsewhere; R41.82 Altered mental status, unspecified; E87.6 Hypokalemia; J44.9 Chronic obstructive pulmonary disease, unspecified; J45.909 Unspecified asthma, uncomplicated; G20 Parkinson's disease; E11.9 Type 2 diabetes mellitus without complications; I10 Essential (primary) hypertension; K21.9 Gastro-esophageal reflux disease without esophagitis; F41.9 Anxiety disorder, unspecified; F32.9 Major depressive disorder, single episode, unspecified; D64.9 Anemia, unspecified; Z79.899 Other long term (current) drug therapy; Z79.01 Long term (current) use of anticoagulants; Z86.718 Personal history of other venous thrombosis and embolism; Z87.19 Personal history of other diseases of the digestive system; Z99.3 Dependence on wheelchair; Z88.1 Allergy status to other antibiotic agents; Z88.8 Allergy status to other drugs, medicaments and biological substances; Z91.013 Allergy to seafood; Z91.040 Latex allergy status; Y83.8 Other surgical procedures as the cause of abnormal reaction of the patient, or of later complication, without mention of misadventure at the time of the procedure

== ENCOUNTER 2018-01-19 10:09 | Inpatient (IN) | payer OTHER ==
[2018-01-19] VITALS (16 sets, daily range): BP systolic 100–159; BP diastolic 49–77; PULSE 90–100; TEMP 36.4–37.1; O2SAT 100; Ht 154.9 cm; Wt 52.8 kg
[~2018-01-19] VITALS: Ht 154.9 cm; Wt 52.8 kg
[~2018-01-19 10:09] MED LIST changes: -ACET-1256 PO; +ACET-24 PO; -CEFT1INJ26 IV; -LVNIS60 SQ; +LVNIS80 SQ; -ULT50X PO; +VANC1INJ9 IV
[2018-01-19] MEDS ORDERED: SODIUM CHLORIDE 0.9% 1000ML 1,000 ML IV STA (10:23)
--- NOTE | 2018-01-19 10:29 | EMERGENCY ROOM VISIT NOTE ---
History Report prepared by Diana: Tanya House Under the Supervision of: Dr. Vivian Morris M.D. First contact with patient: 10:05 Stated Complaint: ABNORMAL LABS History of Present Illness The patient is an 82 year old female who presents to the Emergency Room with abnormal labs today. Review of [facility] notes show that the patient's hemoglobin was 6 and her INR was 5.2. Notes report that the patient possibly had blood in her stool. Per notes, the patient is on Zyvox for a wound infection. The patient reports feeling weak and tired but denies having any chest pain. She reports that she does not think that she has had a blood transfusion before. Review of EMR shows that the patient has a history of DVT. Notes show that the patient also had a recent shoulder infection with washout and then had dehiscence of that wound. Source of History: patient, transfer records ([facility] notes) Onset: today Position: other (generalized) Quality: other (abnormal labs) Associated Symptoms: + fatigue, + weakness, No chest pain Review of Systems See HPI for pertinent positives & negatives. A total of 10 systems reviewed and were otherwise negative. 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 Surgical Problems: (1) Hx of hysterectomy (2) Hx of tonsillectomy Family History Gallbladder disease Heart disease Hypertension Kidney disease Kidney stones Social History Smoking Status: Former Smoker Alcohol Use: none Drug Use: none Marital Status: Housing Status: other Occupation Status: retired Current/Historical Medications Scheduled Clopidogrel Bisulfate (Plavix), 75 MG PO DAILY Cyanocobalamin (Vitamin B-12), 1,000 MCG PO DAILY Eucerin (Eucerin), 1 APPLN TOP AMHS Ferrous Sulfate (Kp Ferrous Sulfate), 325 MG PO BID Fluticasone Prop/Salmeterol (Advair Diskus 250/50 60 Dose), 1 PUFF INH BID Folic Acid (Folvite), 1 MG PO DAILY Levodopa/Carbidopa (Sinemet 25MG/100MG), 2 TAB PO QID Linezolid (Zyvox), 600 MG PO AMHS Metoprolol Tartrate (Lopressor) (Lopressor), 25 MG PO BID Montelukast Sodium (Singulair), 10 MG PO HS Pantoprazole (Protonix), 40 MG PO DAILY Ropinirole Hydrochloride (Requip), 1 MG PO HS Senna/Docusate Sod (Senokot S), 1 TAB PO DAILY Venlafaxine Hcl (Effexor Xr), 75 MG PO DAILY Scheduled PRN Acetaminophen (Tylenol), 500 MG PO Q4H PRN for Pain or Fever Albuterol Hfa (Ventolin Hfa), 2 PUFFS INH Q6H PRN for Wheezing Melatonin (Kp Melatonin), 1 TAB PO HS PRN for Insomnia Triamcinolone Acet (Triamcinolone Acetonide), 1 APPLN TOP BID PRN for rash Allergies Coded Allergies: Diphenhydramine (Verified Allergy, Severe, SWELLING IN THROAT, 11/23/17) Iodine (Verified Allergy, Severe, THROAT SWELLING, 11/23/17) Shellfish (Verified Allergy, Severe, ANAPHYLAXIS AND FULL BODY HIVES, 11/23) Ciprofloxacin (Verified Allergy, Intermediate, HIVES FULL BODY, 11/23/17) Latex1 -Allergic Contact Dermititis (Verified Allergy, Intermediate, DERMATITIS, 11/23/17) Quinine (Verified Allergy, Intermediate, HIVES, 11/23/17) Triprolidine (Verified Allergy, Intermediate, HIVES, ASTHMA EXACERBATION, 11/23/17) Physical Exam Vital Signs Date Time Temp Pulse Resp B/P (MAP) Pulse Ox O2 Delivery O2 Flow Rate FiO2 01/19/18 13:15 90 19 119/58 100 01/19/18 13:10 93 18 01/19/18 13:05 97 19 100 01/19/18 13:00 90 22 102/52 100 01/19/18 13:00 37.1 90 16 102/52 100 01/19/18 12:32 37.1 90 14 114/49 100 01/19/18 12:30 37.1 91 15 114/49 100 01/19/18 12:17 36.8 92 17 110/50 100 01/19/18 12:15 100 Room Air 01/19/18 10:25 36.9 108 20 110/50 100 Room Air Physical Exam Vital signs reviewed. General: Chronically ill-appearing elderly female, pale, in no significant distress. HEENT: No scleral icterus, pale conjunctiva, PERRLA, neck supple. Atraumatic. Dry mucous membranes. Cardiovascular: Slightly tachycardic, regular rhythm, no extra sounds. Pulmonary: Clear to auscultation bilaterally, normal work of breathing. Abdomen: Soft, nontender, nondistended, positive bowel sounds. Musculoskeletal: Atraumatic, no peripheral edema. Neurologic: Patient awake alert and oriented x 3 Skin: Warm, dry, no rash Rectal: Guaiac positive. Melanotic. Medical Decision & Procedures Laboratory Results 01/19/18 10:39 Red Blood Count 1.96, Mean Corpuscular Volume 96.4, Mean Corpuscular Hemoglobin 32.1, Mean Corpuscular Hemoglobin Concent 33.3, Mean Platelet Volume 9.3, Neutrophils (%) (Auto) 56.6, Lymphocytes (%) (Auto) 26.0, Monocytes (%) (Auto) 6.0, Eosinophils (%) (Auto) 10.3, Basophils (%) (Auto) 0.9, Neutrophils # (Auto ) 3.29, Lymphocytes # (Auto) 1.51, Monocytes # (Auto) 0.35, Eosinophils # (Auto ) 0.60, Basophils # (Auto) 0.05 01/19/18 10:39 Test 01/19/18 10:39 White Blood Count 5.81 K/uL (4.8-10.8) Red Blood Count 1.96 M/uL (4.2-5.4) Hemoglobin 6.3 g/dL (12.0-16.0) Hematocrit 18.9 % (37-47) Mean Corpuscular Volume 96.4 fL (80-100) Mean Corpuscular Hemoglobin 32.1 pg (25-34) Mean Corpuscular Hemoglobin Concent 33.3 g/dl (32-36) Platelet Count 195 K/uL (130-400) Mean Platelet Volume 9.3 fL (7.4-10.4) Neutrophils (%) (Auto) 56.6 % Lymphocytes (%) (Auto) 26.0 % Monocytes (%) (Auto) 6.0 % Eosinophils (%) (Auto) 10.3 % Basophils (%) (Auto) 0.9 % Neutrophils # (Auto) 3.29 K/uL (1.4-6.5) Lymphocytes # (Auto) 1.51 K/uL (1.2-3.4) Monocytes # (Auto) 0.35 K/uL (0.11-0.59) Eosinophils # (Auto) 0.60 K/uL (0-0.5) Basophils # (Auto) 0.05 K/uL (0-0.2) RDW Standard Deviation 55.1 fL (36.4-46.3) RDW Coefficient of Variation 15.5 % (11.5-14.5) Immature Granulocyte % (Auto) 0.2 % Immature Granulocyte # (Auto) 0.01 K/uL (0.00-0.02) Prothrombin Time 44.1 SECONDS (9.0-12.0) Prothromb Time International Ratio 4.3 (0.9-1.1) Activated Partial Thromboplast Time 45.3 SECONDS (21.0-31.0) Partial Thromboplastin Ratio 1.7 Anion Gap 11.0 mmol/L (3-11) Est Creatinine Clear Calc Drug Dose 26.0 ml/min Estimated GFR () 45.9 Estimated GFR (Non- 39.6 BUN/Creatinine Ratio 33.6 (10-20) Calcium Level 8.3 mg/dl (8.5-10.1) Magnesium Level 2.0 mg/dl (1.8-2.4) Total Bilirubin 0.2 mg/dl (0.2-1) Direct Bilirubin < 0.1 mg/dl (0-0.2) Aspartate Amino Transf (AST/SGOT) 18 U/L (15-37) Alanine Aminotransferase (ALT/SGPT) 29 U/L (12-78) Alkaline Phosphatase 82 U/L (45-117) Troponin I < 0.015 ng/ml (0-0.045) Total Protein 6.2 gm/dl (6.4-8.2) Albumin 2.9 gm/dl (3.4-5.0) Laboratory results per my review. Medications Administered Medications (Trade) Dose Ordered Sig/Joceline Route Start Time Stop Time Status Last Admin Dose Admin Sodium Chloride 1,000 ml @ 125 mls/hr Q8H STAT IV 01/19/18 10:23 01/19/18 15:35 DC 01/19/18 11:28 125 MLS/HR Phytonadione 2.5 mg/Sodium Chloride 50.25 ml @ 100.5 mls/ hr ONE ONCE IV 01/19/18 12:30 01/19/18 12:59 DC 01/19/18 12:48 100.5 MLS/HR Pantoprazole Sodium 80 mg/ Dextrose 120 ml @ 480 mls/hr 1245 IV 01/19/18 12:45 01/19/18 12:59 DC 01/19/18 13:37 480 MLS/HR Pantoprazole Sodium 40 mg/ Dextrose 100 ml @ 20 mls/hr Q5H IV 01/19/18 13:00 01/19/18 17:59 DC 01/19/18 13:38 20 MLS/HR ECG Per My Interpretation Indication: tachycardia Rate (beats per minute): 99 Rhythm: normal sinus Findings: T-wave inversion (Inferior and anterior), no acute ischemic change, no ectopy, other (previous inferior and anterior infarcts) ED Course 1023: Past medical records reviewed. The patient was evaluated in room B5. A complete history and physical examination was performed. 1145: I checked on the patient and consented her for blood. 1205: Upon reevaluation, the patient is resting comfortably. I discussed laboratory and radiographic results with her. She verbalized agreement of the treatment plan. The patient will be evaluated for further management and care by Mayi Grissom. Medical Decision Differential diagnosis: Etiologies such as diverticulosis, AVM, coagulopathy, colitis, inflammatory bowel disease, malignancy, Shilpa-Villa tear, esophagitis, peptic ulcer disease , variceal bleed, gastritis, epistaxis, fissure, hemorrhoids, as well as others were entertained. This patient was evaluated and appeared to be in no significant distress. IV access was obtained and laboratory work was drawn. Patient was hydrated with normal saline solution. Patient was noted to have a hemoglobin of 6.3. Patient was typed and crossed for 2 units. She was given Protonix IV bolus with drip. Stool is guaiac positive. Patient was given vitamin K 2.5 mg IV for an INR of 4.3. Patient and daughter were informed of the findings and plan. They were consented for blood transfusion. The hospitalist service was consulted for admission. Medication Reconcilliation Current Medication List: was personally reviewed by me Blood Pressure Screening Patient's blood pressure: Low blood pressure will be monitored by the hospitalist Consults Time Called: 1150 Consulting Physician: Mayi Grissom Returned Call: 1205 I reviewed the patient's case with Mayi Jones PA-C. She will evaluate the patient for further management. Impression Primary Impression: GI bleed Additional Impressions: Anemia due to blood loss Anticoagulated Critical Care I have personally spent greater than 35 minutes of critical care time in the direct management of this patient. This includes bedside care, interpretation of diagnostic studies, and testing, discussion with consultants, patient, and family members, and other required patient management activities. This 35 minutes is in excess of all separately billable procedures. Scribe Attestation The scribe's documentation has been prepared under my direction and personally reviewed by me in its entirety. I confirm that the note above accurately reflects all work, treatment, procedures, and medical decision making performed by me. Departure Information Dispostion Being Evaluated By Hospitalist Referrals Mariela Alfonso D.O. (PCP) Problem Qualifiers
[2018-01-19 11:05] LABS: HEMATOCRIT 18.9 % (37-47); HEMOGLOBIN 6.3 g/dL (12.0-16.0); MEAN CELL VOLUME 96.4 fL (80-100); MEAN CORPUSCULAR HEMOGLOBIN 32.1 pg (25-34); MEAN CORPUSCULAR HGB CONC 33.3 g/dl (32-36); MEAN PLATELET VOLUME 9.3 fL (7.4-10.4); PLATELET COUNT 195 K/uL (130-400); RED CELL DISTRIBUTION WIDTH CV 15.5 % (11.5-14.5); RED CELL DISTRIBUTION WIDTH SD 55.1 fL (36.4-46.3); WHITE BLOOD COUNT 5.81 K/uL (4.8-10.8)
[2018-01-19 11:14] LABS: BLOOD UREA NITROGEN 42 mg/dl (7-18); CREATININE 1.26 mg/dl (0.60-1.20); GLUCOSE 104 mg/dl (70-99)
[2018-01-19 11:15] LABS: ALBUMIN 2.9 gm/dl (3.4-5.0); ALKALINE PHOSPHATASE 82 U/L (45-117); ALT/SGPT 29 U/L (12-78); AST/SGOT 18 U/L (15-37); CALCIUM 8.3 mg/dl (8.5-10.1); CARBON DIOXIDE 22 mmol/L (21-32); POTASSIUM 4.3 mmol/L (3.5-5.1); SODIUM 140 mmol/L (136-145); TOTAL PROTEIN 6.2 gm/dl (6.4-8.2)
[2018-01-19 11:16] LABS: BASO % 0.9 %; BASO ABS # 0.05 K/uL (0-0.2); EOS % 10.3 %; IG# 0.01 K/uL (0.00-0.02); LYMPH ABS # 1.51 K/uL (1.2-3.4); MONO ABS # 0.35 K/uL (0.11-0.59); NEUT % 56.6 %; NEUT ABS # 3.29 K/uL (1.4-6.5)
[2018-01-19] MEDS ORDERED: CYAN10005 PO (11:21)
[2018-01-19] MEDS ORDERED: SNM/25100 PO (11:21)
[2018-01-19] MEDS ORDERED: MONT1TAB3 PO (11:21)
[2018-01-19] MEDS ORDERED: FOLI1TAB8 PO (11:21)
[2018-01-19] MEDS ORDERED: METO25TA56 PO (11:21)
[2018-01-19] MEDS ORDERED: ADVIN25/60 INH (11:21)
[2018-01-19] MEDS ORDERED: FERR1TAB13 PO (11:21)
[2018-01-19] MEDS ORDERED: LINE1TAB6 PO (11:21)
[2018-01-19] MEDS ORDERED: CLOP1TAB54 PO (11:21)
[2018-01-19] MEDS ORDERED: ACET-1256 PO (11:21)
[2018-01-19] MEDS ORDERED: ROPI1TAB PO (11:21)
[2018-01-19] MEDS ORDERED: PANT40TA PO (11:21)
[2018-01-19] MEDS ORDERED: SENN-65 PO (11:21)
[2018-01-19] MEDS ORDERED: VENL75CA88 PO (11:21)
[2018-01-19] MEDS ORDERED: SKINCRE34 TOP (11:21)
[2018-01-19] MEDS ORDERED: VNTHFA/IN INH (11:21)
[2018-01-19 11:28] LABS: INR 4.3 (0.9-1.1)
[2018-01-19 11:29] LABS: PTT PATIENT 45.3 SECONDS (21.0-31.0)
[2018-01-19] MEDS ORDERED: PHYTONADIONE INJ 2.5 MG in SODIUM CHLORIDE 0.9% 50ML 50 ML IV ONE (12:30)
[2018-01-19] MEDS ORDERED: PANTOprazole INJ 80 MG in DEXTROSE 5% 100ML IV SCH (12:45)
[2018-01-19] MEDS ORDERED: PANTOprazole INJ 40 MG in DEXTROSE 5% 100ML IV SCH (13:00)
--- NOTE | 2018-01-19 13:54 | History and Physical ---
History & Physical Date & Time of Service: Jan 19, 2018 at 13:54 Chief Complaint: Abnormal Labs Primary Care Physician: Mariela Alfonso D.O. History of Present Illness Source: patient, clinic records, hospital records Patient is an 82-year-old female from [facility] with a PMH of history of DVT (on Coumadin), HTN, Parkinson's disease, asthma, HLD and depression who presents from [facility] with bloody stool and symptomatic anemia. Per review of records, patient had 1 rust-colored BM late last night. CBC performed this morning indicated a hemoglobin of 6.2 (down from 9 four days ago). Has been on Coumadin for DVT but INR was elevated to 6.77 on Jan 17 and coumadin has been held since. INR is 4.3 upon admission. Patient endorses fatigue and lightheadedness but denies fever, chills, headache, chest pain, shortness of breath, abdominal pain, nausea, vomiting or hematuria. No LE swelling. Was recently admitted from December 22 - due to right shoulder wound dehiscence 4 weeks s/p right septic shoulder I&D. Blood cultures most recently grew Corynebacterium and patient has been following with Dr. Chau of ID as an outpatient. Initially treated with vanco by PICC line but transitioned to a 4 week course of PO Zyvox on January 01. Carbidopa/levodopa and Effexor have been held to avoid drug-drug interaction. 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 Status: Resolved Surgical Problems: (1) Hx of hysterectomy Status: Resolved (2) Hx of tonsillectomy Status: Resolved Family History Gallbladder disease Heart disease Hypertension Kidney disease Kidney stones Social History Smoking Status: Former Smoker Drug Use: none Marital Status: Housing status: fdc Occupational Status: retired Allergies Coded Allergies: Diphenhydramine (Verified Allergy, Severe, SWELLING IN THROAT, 11/23/17) Iodine (Verified Allergy, Severe, THROAT SWELLING, 11/23/17) Shellfish (Verified Allergy, Severe, ANAPHYLAXIS AND FULL BODY HIVES, 11/23) Ciprofloxacin (Verified Allergy, Intermediate, HIVES FULL BODY, 11/23/17) Latex1 -Allergic Contact Dermititis (Verified Allergy, Intermediate, DERMATITIS, 11/23/17) Quinine (Verified Allergy, Intermediate, HIVES, 11/23/17) Triprolidine (Verified Allergy, Intermediate, HIVES, ASTHMA EXACERBATION, 11/23/17) Home Medications Scheduled Clopidogrel Bisulfate (Plavix), 75 MG PO DAILY Cyanocobalamin (Vitamin B-12), 1,000 MCG PO DAILY Eucerin (Eucerin), 1 APPLN TOP AMHS Ferrous Sulfate (Kp Ferrous Sulfate), 325 MG PO BID Fluticasone Prop/Salmeterol (Advair Diskus 250/50 60 Dose), 1 PUFF INH BID Folic Acid (Folvite), 1 MG PO DAILY Levodopa/Carbidopa (Sinemet 25MG/100MG), 2 TAB PO QID Linezolid (Zyvox), 600 MG PO AMHS Metoprolol Tartrate (Lopressor) (Lopressor), 25 MG PO BID Montelukast Sodium (Singulair), 10 MG PO HS Pantoprazole (Protonix), 40 MG PO DAILY Ropinirole Hydrochloride (Requip), 1 MG PO HS Senna/Docusate Sod (Senokot S), 1 TAB PO DAILY Venlafaxine Hcl (Effexor Xr), 75 MG PO DAILY Scheduled PRN Acetaminophen (Tylenol), 500 MG PO Q4H PRN for Pain or Fever Albuterol Hfa (Ventolin Hfa), 2 PUFFS INH Q6H PRN for Wheezing Melatonin (Kp Melatonin), 1 TAB PO HS PRN for Insomnia Triamcinolone Acet (Triamcinolone Acetonide), 1 APPLN TOP BID PRN for rash Review of Systems Ten systems reviewed and negative except as noted in the HPI. Physical Exam Vital Signs Date Time Temp Pulse Resp B/P (MAP) Pulse Ox O2 Delivery O2 Flow Rate FiO2 01/19/18 13:30 37.1 94 16 100/67 100 01/19/18 13:20 94 19 100 01/19/18 13:15 90 19 119/58 100 01/19/18 13:10 93 18 01/19/18 13:05 97 19 100 01/19/18 13:00 90 22 102/52 100 01/19/18 13:00 37.1 90 16 102/52 100 01/19/18 12:32 37.1 90 14 114/49 100 01/19/18 12:30 37.1 91 15 114/49 100 01/19/18 12:17 36.8 92 17 110/50 100 01/19/18 12:15 100 Room Air 01/19/18 10:25 36.9 108 20 110/50 100 Room Air General Appearance: + mild distress Head: normocephalic, atraumatic Eyes: normal inspection, PERRL, sclerae normal ENT: normal ENT inspection, hearing grossly normal, pharynx normal (dry mucous membranes ) Neck: supple, thyroid normal, trachea midline Respiratory/Chest: chest non-tender, lungs clear, normal breath sounds, no respiratory distress, no accessory muscle use Cardiovascular: regular rate, rhythm, normal peripheral pulses Abdomen/GI: non tender, soft, no organomegaly, + fecal occult blood (per ER physician's rectal exam ) Back: normal inspection Extremities/Musculoskelatal: normal inspection, no calf tenderness, no pedal edema, + pertinent finding (No R shoulder pain or erythema noted) Neurologic/Psych: alert, oriented x 3, + pertinent finding (anxious) Skin: warm/dry, no rash, + pallor Diagnostics Laboratory Results Results Past 24 Hours Test 01/19/18 10:39 Range/Units White Blood Count 5.81 4.8-10.8 K/uL Red Blood Count 1.96 4.2-5.4 M/uL Hemoglobin 6.3 12.0-16.0 g/dL Hematocrit 18.9 37-47 % Mean Corpuscular Volume 96.4 80-100 fL Mean Corpuscular Hemoglobin 32.1 25-34 pg Mean Corpuscular Hemoglobin Concent 33.3 32-36 g/dl Platelet Count 195 130-400 K/uL Mean Platelet Volume 9.3 7.4-10.4 fL Neutrophils (%) (Auto) 56.6 % Lymphocytes (%) (Auto) 26.0 % Monocytes (%) (Auto) 6.0 % Eosinophils (%) (Auto) 10.3 % Basophils (%) (Auto) 0.9 % Neutrophils # (Auto) 3.29 1.4-6.5 K/uL Lymphocytes # (Auto) 1.51 1.2-3.4 K/uL Monocytes # (Auto) 0.35 0.11-0.59 K/uL Eosinophils # (Auto) 0.60 0-0.5 K/uL Basophils # (Auto) 0.05 0-0.2 K/uL RDW Standard Deviation 55.1 36.4-46.3 fL RDW Coefficient of Variation 15.5 11.5-14.5 % Immature Granulocyte % (Auto) 0.2 % Immature Granulocyte # (Auto) 0.01 0.00-0.02 K/uL Prothrombin Time 44.1 9.0-12.0 SECONDS Prothromb Time International Ratio 4.3 0.9-1.1 Activated Partial Thromboplast Time 45.3 21.0-31.0 SECONDS Partial Thromboplastin Ratio 1.7 Sodium Level 140 136-145 mmol/L Potassium Level 4.3 3.5-5.1 mmol/L Chloride Level 107 98-107 mmol/L Carbon Dioxide Level 22 21-32 mmol/L Anion Gap 11.0 3-11 mmol/L Blood Urea Nitrogen 42 7-18 mg/dl Creatinine 1.26 0.60-1.20 mg/dl Est Creatinine Clear Calc Drug Dose 26.0 ml/min Estimated GFR () 45.9 Estimated GFR (Non- 39.6 BUN/Creatinine Ratio 33.6 10-20 Random Glucose 104 70-99 mg/dl Calcium Level 8.3 8.5-10.1 mg/dl Magnesium Level 2.0 1.8-2.4 mg/dl Total Bilirubin 0.2 0.2-1 mg/dl Direct Bilirubin < 0.1 0-0.2 mg/dl Aspartate Amino Transf (AST/SGOT) 18 15-37 U/L Alanine Aminotransferase (ALT/SGPT) 29 12-78 U/L Alkaline Phosphatase 82 45-117 U/L Troponin I < 0.015 0-0.045 ng/ml Total Protein 6.2 6.4-8.2 gm/dl Albumin 2.9 3.4-5.0 gm/dl EKG Normal sinus rhythm at 99bpm. T wave inversion (inferior and anterior). No acute ST change. Impression Assessment and Plan Patient is an 82-year-old female from [facility] with a PMH of history of DVT (on Coumadin), HTN, Parkinson's disease, asthma, HLD and depression who presents from [facility] with bloody stool and symptomatic anemia. Acute blood loss anemia 2/2 GI bleed Supratherapeutic INR -Rust colored BM late last evening, reported by [facility] -Hgb decreased to 6.2 (hgb of 9 four days ago) -Has been on coumadin for DVT, supratherapeutic INR of 6.7 reported 01/17-- has been held -INR of 4.3 today. Given IV 2.5mg Vit K in ED for reversal -Monitor hgb & hct Q6H -Transfusing 2 units prbcs -Protonix bolus and drip -GI consulted -NPO with IV fluids -Telemetry H/o septic shoulder joint infection -Right shoulder I&D, stimulon bead implantation in November (grew staph aureus) -Wound dehiscence, hematoma evacuation and washout in December (grew corynebacterium ) -Currently following with Dr. Chau out-patient. Began PO Zyvox on January 01 for 4 week course -No current leukocytosis or evidence of worsening infection -IV Zyvox while NPO -ID consulted HTN -Continue metoprolol Parkinson's Disease -Carbidopa/levodopa held while on Zyvox Asthma -Continue Advair, albuterol PRN -Singulair HS HLD -Continue Depression -Effexor held while on Zyvox DVT Ppx: SCDs (GI bleed) Code status: FULL per discussion with patient's daughter PCP: Kaden Dispo: Admitted to telemetry. Discharge planning back to [facility]. Patient seen in collaboration with Dr. Fisher. Please see addendum. Attending addendum: The patient was seen and examined in emergency room. 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 Dr. Joana Fisher Advanced Directives Existing Living Will: Yes Existing Power of Formula Checker: Yes Resuscitation Status VTE Prophylaxis Will order VTE Prophylaxis: Yes Reason for no VTE drug order: Contraindicated Reason no Mechanical VTE Order: Treatment not indicated
[2018-01-19] MEDS ORDERED: ALBUTEROL HFA 8 GM INHALER INH PRN (14:30)
[2018-01-19] MEDS ORDERED: TRIAMCINOLONE ACET 0.5% CR 15 GM TUBE EXT PRN (14:30)
[2018-01-19] MEDS ORDERED: TRMCR515 TOP (14:31)
[2018-01-19] MEDS ORDERED: MELA1TAB5 PO (14:31)
--- NOTE | 2018-01-19 16:30 | GASTROINTESTINAL CONSULTATION ---
DATE OF CONSULTATION: 01/19/2018 ATTENDING PHYSICIAN: Heidy Fisher MD CONSULTING PHYSICIAN: Wily Patrick DO REASON FOR CONSULTATION: GI bleed. HISTORY OF PRESENT ILLNESS: Val Solomon is an 82-year-old female who presented to the Department of Emergency Medicine from [facility] with a questionable GI bleeding. She was reported to have hemoglobin of 6 and an INR of 5.2 and was subsequently transferred to the Department of Emergency Medicine secondary to symptomatic anemia as she did complain of having some lightheadedness and dizziness. Upon arrival to the Department of Emergency Medicine, she was noted to have an H and H of 6.3 and 18.9, PT of 44.1 with an INR of 4.3 and a BUN and creatinine of 42 and 1.26. She has been taking Coumadin therapy for a blood clot in her arm per nursing staff. She was subsequently given a unit of packed red blood cells in transfusion. In the Department of Emergency Medicine, she also received a Protonix bolus of 80 mg IV x1 followed by a Protonix drip at 8 mg per hour. She was transferred to PCU where I saw the patient in consultation. At the time that I saw her, she did complain of some mild epigastric abdominal pain which she rated as 2/10 to 3/10 in intensity. She did have some associated nausea, though no vomiting. She does note that over the past few weeks she has noted dark stools, though denied any hematemesis or hematochezia. She does have a recent infection of her right shoulder and has been on antibiotics for this. She denies any further complaints. 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 PAST SURGICAL HISTORY: Includes a hysterectomy and tonsillectomy. ALLERGIES: INCLUDE CIPROFLOXACIN, DIPHENHYDRAMINE, IODINE, LATEX, QUININE, SHELLFISH, AND TRIPROLIDINE. MEDICATIONS AT PRESENT: Include Advair 250/50 one puff via inhaler twice daily, linezolid 600 mg IV q. 12 hours, Kenalog 0.5 cream 1 application twice daily to external area, Tylenol 650 mg p.o. q. 4 p.r.n. pain or fever, Protonix drip at 8 mg per hour. SOCIAL HISTORY: She lives at [facility]. No tobacco, alcohol or illicit drug use. FAMILY HISTORY: Negative for GI malignancy or inflammatory bowel disease. REVIEW OF SYSTEMS: Her review of systems is negative x10 system review other than pertinent positives listed in the HPI. PHYSICAL EXAMINATION: VITAL SIGNS: Temperature 37, pulse 94, respirations 20, blood pressure 132/70, pulse ox 100% on room air. GENERAL: Awake, cooperative, noted pallor. HEAD: Normocephalic, atraumatic. EYES: Pupils equally round. Sclerae nonicteric. ENT: External evaluation of ears and nose are normal. Hearing is grossly normal. NECK: Soft, supple. CHEST: Decreased breath sounds, bilateral bases. CARDIOVASCULAR SYSTEM: Regular rate and rhythm. ABDOMEN: Soft, nontender, nondistended. Positive bowel sounds. There is no hepatosplenomegaly or stigmata of chronic liver disease. EXTREMITIES: No clubbing, cyanosis, or edema. PSYCHIATRIC: Alert and oriented x3. SKIN: Noted pallor. LABORATORY STUDIES AND RADIOGRAPHIC STUDIES: Reviewed in the HPI. IMPRESSION: This is an 82-year-old female with a history of deep vein thrombosis, on Coumadin therapy as well as a history of gastroesophageal reflux disease who presented with a supratherapeutic INR and symptomatic anemia with a history of dark stools. PLAN: The patient did receive vitamin K in the Department of Emergency Medicine. I would recommend holding her Coumadin therapy. She will be transfused a second unit of packed red blood cells here after receiving one unit in the ER. I would recommend repeating her H and H at least 2 hours post-transfusion and maintaining her H and H around 8 and 24 with transfusions as needed. I would continue her on a Protonix drip at 8 mg per hour. I would keep her n.p.o. and decision to perform upper endoscopy will be deferred at this time until the patient's INR is reversed and the patient is stabilized medically. Dr. Royce Skinner will be covering for my service over the weekend and I will discuss this case in detail with him as well. Once again, thanks for allowing me to participate in the care of this patient. If you have any further questions, please do not hesitate in contacting me.
[2018-01-19] MEDS ORDERED: NURSING VERBAL MED ORDER ONE (18:45)
[2018-01-19] MEDS: PANTOprazole INJ 40 MG in DEXTROSE 5% 100ML IV SCH ×2 (19:44→23:41)
[2018-01-19] MEDS: D5W AND 1/2NSS 1,000 ML IV SCH (19:46)
[2018-01-19] MEDS: EUCERIN CR 120 GM JAR EXT SCH (19:46)
[2018-01-19] MEDS: FLUTICASONE/SALMETEROL 250/50 (ADVAIR) 14 PUFF/1 INHALER INH SCH (19:47)
[2018-01-19] MEDS: LINEZOLID / D5W 600 MG in PREMIXED IN D5W 300 ML IV SCH (19:47)
[2018-01-19] MEDS ORDERED: LORAZEPAM 2 MG/ML 1 ML VIAL IV ONE (20:15)
[2018-01-19] MEDS ORDERED: LORAZEPAM INJ 0.5 MG in SYRINGE 0.75 ML IV ONE (20:15)
[2018-01-19] MEDS ORDERED: LINEZOLID 600 MG TAB PO SCH (21:00)
[2018-01-19 21:23] LABS: HEMATOCRIT 27.6 % (37-47); HEMOGLOBIN 9.8 g/dL (12.0-16.0)
[2018-01-19] MEDS: CEFTRIAXONE SOD INJ 1 GM in DEXTROSE 5% ADD-VANTAGE 50ML 50 ML IV SCH (23:36)
[2018-01-20] VITALS (8 sets, daily range): BP systolic 112–150; BP diastolic 62–75; PULSE 98–116; TEMP 36.2–37.1; O2SAT 95–100
[2018-01-20] MEDS: PANTOprazole INJ 40 MG in DEXTROSE 5% 100ML IV SCH ×4 (05:07→19:25)
[2018-01-20 05:44] LABS: HEMATOCRIT 26.2 % (37-47); HEMOGLOBIN 9.2 g/dL (12.0-16.0); MEAN CELL VOLUME 91.3 fL (80-100); MEAN CORPUSCULAR HEMOGLOBIN 32.1 pg (25-34); MEAN CORPUSCULAR HGB CONC 35.1 g/dl (32-36); MEAN PLATELET VOLUME 9.2 fL (7.4-10.4); PLATELET COUNT 165 K/uL (130-400); RED CELL DISTRIBUTION WIDTH CV 14.8 % (11.5-14.5); RED CELL DISTRIBUTION WIDTH SD 49.4 fL (36.4-46.3); WHITE BLOOD COUNT 7.21 K/uL (4.8-10.8)
[2018-01-20 06:36] LABS: CREATININE 0.9 mg/dl (0.60-1.20); POTASSIUM 3.8 mmol/L (3.5-5.1)
--- NOTE | 2018-01-20 08:34 | Progress Note ---
Progress Note Date of Service Jan 20, 2018. Progress Note ID Consult Dictated #[id number] A/P: 1.Right shoulder infection on zyvox as outpatient -Ok for IV zyvox while npo, continue course as planned -thank you
[2018-01-20] MEDS: D5W AND 1/2NSS 1,000 ML IV SCH ×2 (08:47→19:25)
[2018-01-20] MEDS: LINEZOLID / D5W 600 MG in PREMIXED IN D5W 300 ML IV SCH ×2 (08:49→20:40)
[2018-01-20] MEDS: EUCERIN CR 120 GM JAR EXT SCH ×2 (08:50→20:40)
[2018-01-20] MEDS: FLUTICASONE/SALMETEROL 250/50 (ADVAIR) 14 PUFF/1 INHALER INH SCH ×2 (08:50→20:40)
--- NOTE | 2018-01-20 08:53 | INFECT. DISEASE CONSULTATION ---
DATE OF CONSULTATION: 01/20/2018 HISTORY OF PRESENT ILLNESS: This is an 82-year-old female who was recently seen on morning in the infectious diseases office. She is being treated with oral Zyvox for a history of right shoulder septic arthritis. She had wound dehiscence recently and she had repeat surgery and those cultures grew corynebacterium. Her initial cultures grew MSSA. She was put on IV vancomycin and then transitioned to oral Zyvox, which she is to complete in the upcoming weeks. She was admitted to the hospital yesterday with lower GI bleed and was found to have a hemoglobin of 6.3. She was transfused successfully. She denies any abdominal pain. She denies any fevers or chills. She denies any shoulder pain. Infectious diseases was consulted because she has made n.p.o. and her Zyvox requires approval from infectious diseases. REVIEW OF SYSTEMS: Her remaining review of systems is reviewed and unremarkable. PAST MEDICAL HISTORY: Significant for anxiety, asthma, cervical fracture, depression, type 2 diabetes, esophageal reflux, hyperlipidemia, Parkinson's disease. PAST SURGICAL HISTORY: Significant for hysterectomy, tonsillectomy and several I and Ds of the right shoulder recently. FAMILY HISTORY: Noncontributory. SOCIAL HISTORY: Unremarkable. ALLERGIES: INCLUDE BENADRYL, IODINE, CIPRO, LATEX, QUININE AND TRIPROLIDINE. MEDICATIONS: Rocephin, Advair, linezolid, Protonix, albuterol, Tylenol. PHYSICAL EXAMINATION: VITAL SIGNS: She is afebrile, pulse 102, respiratory rate 18, blood pressure 133/70, oxygen saturation is 100% on room air. GENERAL: She is awake and alert to self only. She is somewhat confused. HEENT: Mucous membranes were dry. HEART: Regular. LUNGS: Clear bilaterally. ABDOMEN: Soft, nontender, nondistended. There is no edema. There is no erythema or wound dehiscence of the right shoulder. LABORATORY STUDIES: CBC today, white blood cell count 7.2, hemoglobin 9.2, platelets 165. Chemistry panel: Sodium 139, potassium 3.8, chloride 109, bicarbonate 22, BUN 26, creatinine 0.9, glucose is 126. LFTs are within normal limits. UA had large leukocyte esterase, greater than 30 WBCs. Urine culture is pending. There is no imaging to review. GI is following this patient for eventual EGD when her INR is reversed. ASSESSMENT AND PLAN: Right shoulder infection. She will remain on Zyvox. This certainly can be IV until she is able to take p.o. again and it can be transitioned back to p.o. to complete her course upon discharge from the hospital. Thank you for this consultation.
[2018-01-20 10:39] LABS: INR 1.1 (0.9-1.1)
[2018-01-20] MEDS ORDERED: ROPINIROLE HCL 1 MG TAB PO ONE (11:45)
--- NOTE | 2018-01-20 11:56 | Gastroenterology Progress Note ---
Progress Note Date of Service: Jan 20, 2018 Subjective Pt evaluation today including: conversation w/ patient, conversation w/ technical assistance consultant No signs of GI bleeding overnight (since presentation actually) Hb responded well to only 2 units of PRBC's. Unable to provide reliable history. Review of Systems Constitutional: No see HPI, No fever, No chills, No sweats, No weight loss, No weakness, No fatigue, No problem reported Eyes: No see HPI, No worsening of vision, No eye pain, No redness, No discharge , No diplopia, No problem reported ENT: No see HPI, No hearing loss, No unusual epistaxis, No nasal symptoms, No sore throat, No tinnitus, No dental problems, No trouble swallowing, No pain on swallowing, No problem reported Respiratory: No see HPI, No cough, No sputum, No wheezing, No shortness of breath, No dyspnea on exertion, No dyspnea at rest, No hemoptysis, No problem reported Medications Current Inpatient Medications Medications (Trade) Dose Ordered Sig/Joceline Route Start Time Stop Time Status Last Admin Dose Admin Acetaminophen (Tylenol Tab) 650 mg Q4H PRN PO 01/19/18 13:30 02/18/18 13:29 Dextrose/Sodium Chloride 1,000 ml @ 75 mls/hr [id number] IV 01/19/18 16:00 02/18/18 15:59 01/20/18 08:47 75 MLS/HR Albuterol (Ventolin Hfa Inhaler) 2 puffs Q6H PRN INH 01/19/18 14:30 02/18/18 14:29 Multi-Ingredient Ointment (Eucerin Unscented Cr) 1 appln AMHS EXT 01/19/18 21:00 02/18/18 20:59 01/20/18 08:50 1 APPLN Salmeterol Xinafoate/ Fluticasone (Advair Diskus 250/50 Inh) 1 puff BID INH 01/19/18 21:00 02/18/18 20:59 01/20/18 08:50 1 PUFF Triamcinolone Acetonide (Kenalog 0.5% Crm) 1 appln BID PRN EXT 01/19/18 14:30 02/18/18 14:29 Linezolid 600 mg/ Prmx 300 ml @ 300 mls/hr Q12 IV 01/19/18 21:00 01/29/18 20:59 01/20/18 08:49 300 MLS/HR Pantoprazole Sodium 40 mg/ Dextrose 100 ml @ 20 mls/hr Q5H IV 01/19/18 19:00 02/18/18 18:59 01/20/18 09:45 20 MLS/HR Ceftriaxone Sodium 1 gm/ Dextrose 50 ml @ 100 mls/hr Q24H IV 01/19/18 23:00 01/29/18 22:59 01/19/18 23:36 100 MLS/HR Ropinirole HCl (Requip Tab) 1 mg HS PO 01/20/18 21:00 02/19/18 20:59 Objective Vital Signs Date Time Temp Pulse Resp B/P (MAP) Pulse Ox O2 Delivery O2 Flow Rate FiO2 01/20/18 06:53 36.4 102 18 133/70 (91) 100 Room Air 01/20/18 04:02 36.2 99 16 113/62 (79) 100 Room Air 01/19/18 23:44 36.4 98 18 149/71 (97) 100 Room Air 01/19/18 20:00 100 Room Air 01/19/18 19:41 36.6 96 16 159/71 100 01/19/18 18:35 36.7 100 20 137/74 100 01/19/18 17:35 36.7 94 18 144/63 100 01/19/18 16:35 36.5 100 18 149/71 100 01/19/18 16:05 36.5 97 18 131/70 100 01/19/18 16:00 Room Air 01/19/18 15:50 36.8 97 20 144/77 100 01/19/18 15:30 36.7 98 18 133/77 (95) 100 Room Air 01/19/18 15:15 37.0 94 20 132/70 100 01/19/18 14:34 94 01/19/18 14:24 37.0 95 20 132/70 100 01/19/18 14:16 132/70 01/19/18 14:10 93 100 01/19/18 14:00 116/55 01/19/18 13:55 93 100 01/19/18 13:45 117/62 01/19/18 13:40 99 100 01/19/18 13:30 100/67 01/19/18 13:30 37.1 94 16 100/67 100 01/19/18 13:25 91 18 01/19/18 13:20 94 19 100 01/19/18 13:15 90 19 119/58 100 01/19/18 13:10 93 18 01/19/18 13:05 97 19 100 01/19/18 13:00 90 22 102/52 100 01/19/18 13:00 37.1 90 16 102/52 100 01/19/18 12:32 37.1 90 14 114/49 100 01/19/18 12:30 37.1 91 15 114/49 100 01/19/18 12:17 36.8 92 17 110/50 100 01/19/18 12:15 100 Room Air Physical Exam General Appearance: + cachetic ENT: normal ENT inspection Respiratory/Chest: chest non-tender, lungs clear, normal breath sounds Cardiovascular: regular rate, rhythm, no edema Abdomen: normal bowel sounds, non tender, soft, + pertinent finding Neurologic/Psych: + pertinent finding Laboratory Results Last 24 Hours Test 01/19/18 20:40 01/19/18 21:09 01/20/18 05:37 01/20/18 10:14 Urine Color YELLOW Urine Appearance CLOUDY Urine pH 6.5 Urine Specific [place] 1.017 Urine Protein NEG Urine Glucose (UA) NEG Urine Ketones NEG Urine Occult Blood 1+ Urine Nitrite NEG Urine Bilirubin NEG Urine Urobilinogen NEG Urine Leukocyte Esterase LARGE Urine WBC (Auto) >30 /hpf Urine RBC (Auto) 0-4 /hpf Urine Hyaline Casts (Auto) 0 /lpf Urine Epithelial Cells (Auto) 5-10 /lpf Urine Bacteria (Auto) 4+ Hemoglobin 9.8 g/dL 9.2 g/dL Hematocrit 27.6 % 26.2 % White Blood Count 7.21 K/uL Red Blood Count 2.87 M/uL Mean Corpuscular Volume 91.3 fL Mean Corpuscular Hemoglobin 32.1 pg Mean Corpuscular Hemoglobin Concent 35.1 g/dl RDW Standard Deviation 49.4 fL RDW Coefficient of Variation 14.8 % Platelet Count 165 K/uL Mean Platelet Volume 9.2 fL Sodium Level 139 mmol/L Potassium Level 3.8 mmol/L Chloride Level 109 mmol/L Carbon Dioxide Level 22 mmol/L Anion Gap 8.0 mmol/L Blood Urea Nitrogen 26 mg/dl Creatinine 0.90 mg/dl Est Creatinine Clear Calc Drug Dose 36.3 ml/min Estimated GFR () 69.0 Estimated GFR (Non- 59.5 BUN/Creatinine Ratio 28.7 Random Glucose 126 mg/dl Calcium Level 8.0 mg/dl Magnesium Level 1.8 mg/dl Prothrombin Time 12.0 SECONDS Prothromb Time International Ratio 1.1 Assessment and Plan 82 yo presenting from [facility] with possible "dark stools" and anemia with recent identification of shoulder infection after recent othopedic surgery.. No signs of active GI bleed. INR has been reversed. Continue to hold coumadin. Her Hb since october has been quite variable, so anemia as been present since then. Hb since has been 7-10 and Hb is stable after blood tx. Continue IV PPI infusion Ok for Clears If has evidence of significant bleeding then will plan on EGD, however, will discuss family's goals of care. Call with questions or change in clinical status.
--- NOTE | 2018-01-20 13:36 | Progress Note ---
Internal Med Progress Note Date of Service: Jan 20, 2018. Provider Documentation: SUBJECTIVE: The patient was seen and examined in telemetry unit Feels a little better since admission Looks depressed and anxious Denies any significant symptoms OBJECTIVE: Vital Signs-as noted below Exam: General-no apparent distress at rest Has increased parkinsonian tremors Generally very anxious about the medical illness Eyes-normal ENT-normal Neck-supple Lungs-decreased breath sounds with minimal bibasilar crackles Heart-regular Abdomen-soft, benign, mildly tender, bowel sounds present Extremities-trace edema bilaterally Left shoulder joint minimally swollen, minimally tender but painful on movement Neuro-alert and awake Generally weak Lab data as noted below. ASSESSMENT & PLAN: Patient is an 82-year-old female from [facility] with a PMH of history of DVT (on Coumadin), HTN, Parkinson's disease, asthma, HLD and depression who presents from [facility] with bloody stool and symptomatic anemia. Acute blood loss anemia 2/2 GI bleed Supra-therapeutic INR -Rust colored BM late last evening, reported by [facility] -Hgb decreased to 6.2 (hgb of 9 four days ago) -Has been on coumadin for DVT, supratherapeutic INR of 6.7 reported 01/17-- has been held -INR of 4.3 today. Given IV 2.5mg Vit K in ED for reversal -Monitor hgb & hct Q6H -Transfusing 2 units prbcs -Protonix bolus and drip -GI consulted-appreciate input -NPO with IV fluids-will start clears -No more bright red blood per rectum -Likely to go for EGD sometime during the hospitalization -Received 2 units of packed red cell and hemoglobin went up to 9.2 from 6.31 admission -Monitor H&H and continue intravenous Protonix History of DVT on Coumadin Coumadin is on hold now and INR is normal today Probably will need small dose of Coumadin on discharge to prevent clot formation Will discuss with the daughter in detail H/o septic shoulder joint infection without any prior history of surgery -Right shoulder I&D, stimulon bead implantation in November (grew staph aureus) -Wound dehiscence, hematoma evacuation and washout in December (grew corynebacterium ) -Currently following with Dr. Chau out-patient. Began PO Zyvox on January 01 for 4 week course -No current leukocytosis or evidence of worsening infection -IV Zyvox while NPO -ID consulted-appreciate input HTN -Continue metoprolol Parkinson's Disease -Carbidopa/levodopa held while on Zyvox -Discussed with pharmacy, there is serious interaction between Zyvox and anti- parkinsonian medications -We will not start any libido for/carbidopa -Requip was started Asthma -Continue Advair, albuterol PRN -Singulair HS HLD -Continue Depression -Effexor held while on Zyvox DVT Ppx: SCDs (GI bleed) Code status: FULL per discussion with patient's daughter PCP: Kaden Dispo: Admitted to telemetry. Discharge planning back to [facility]. Vital Signs: Date Time Temp Pulse Resp B/P (MAP) Pulse Ox O2 Delivery O2 Flow Rate FiO2 01/20/18 11:49 37.0 106 18 124/75 (91) 97 01/20/18 08:00 Room Air 01/20/18 06:53 36.4 102 18 133/70 (91) 100 Room Air 01/20/18 04:02 36.2 99 16 113/62 (79) 100 Room Air 01/19/18 23:44 36.4 98 18 149/71 (97) 100 Room Air 01/19/18 20:00 100 Room Air 01/19/18 19:41 36.6 96 16 159/71 100 01/19/18 18:35 36.7 100 20 137/74 100 01/19/18 17:35 36.7 94 18 144/63 100 01/19/18 16:35 36.5 100 18 149/71 100 01/19/18 16:05 36.5 97 18 131/70 100 01/19/18 16:00 Room Air 01/19/18 15:50 36.8 97 20 144/77 100 01/19/18 15:30 36.7 98 18 133/77 (95) 100 Room Air 01/19/18 15:15 37.0 94 20 132/70 100 01/19/18 14:34 94 01/19/18 14:24 37.0 95 20 132/70 100 01/19/18 14:16 132/70 01/19/18 14:10 93 100 01/19/18 14:00 116/55 01/19/18 13:55 93 100 01/19/18 13:45 117/62 01/19/18 13:40 99 100 01/19/18 13:30 100/67 01/19/18 13:30 37.1 94 16 /67 100 Lab Results: Results Past 24 Hours Test 01/19/18 20:40 01/19/18 21:09 01/20/18 05:37 01/20/18 10:14 Range/Units Urine Color YELLOW Urine Appearance CLOUDY CLEAR Urine pH 6.5 4.5-7.5 Urine Specific [place] 1.017 1.000-1.030 Urine Protein NEG NEG Urine Glucose (UA) NEG NEG Urine Ketones NEG NEG Urine Occult Blood 1+ NEG Urine Nitrite NEG NEG Urine Bilirubin NEG NEG Urine Urobilinogen NEG NEG Urine Leukocyte Esterase LARGE NEG Urine WBC (Auto) >30 0-5 /hpf Urine RBC (Auto) 0-4 0-4 /hpf Urine Hyaline Casts (Auto) 0 0-5 /lpf Urine Epithelial Cells (Auto) 5-10 0-5 /lpf Urine Bacteria (Auto) 4+ NEG Hemoglobin 9.8 9.2 12.0-16.0 g/dL Hematocrit 27.6 26.2 37-47 % White Blood Count 7.21 4.8-10.8 K/uL Red Blood Count 2.87 4.2-5.4 M/uL Mean Corpuscular Volume 91.3 80-100 fL Mean Corpuscular Hemoglobin 32.1 25-34 pg Mean Corpuscular Hemoglobin Concent 35.1 32-36 g/dl RDW Standard Deviation 49.4 36.4-46.3 fL RDW Coefficient of Variation 14.8 11.5-14.5 % Platelet Count 165 130-400 K/uL Mean Platelet Volume 9.2 7.4-10.4 fL Sodium Level 139 136-145 mmol/L Potassium Level 3.8 3.5-5.1 mmol/L Chloride Level 109 98-107 mmol/L Carbon Dioxide Level 22 21-32 mmol/L Anion Gap 8.0 3-11 mmol/L Blood Urea Nitrogen 26 7-18 mg/dl Creatinine 0.90 0.60-1.20 mg/dl Est Creatinine Clear Calc Drug Dose 36.3 ml/min Estimated GFR () 69.0 Estimated GFR (Non- 59.5 BUN/Creatinine Ratio 28.7 10-20 Random Glucose 126 70-99 mg/dl Calcium Level 8.0 8.5-10.1 mg/dl Magnesium Level 1.8 1.8-2.4 mg/dl Prothrombin Time 12.0 9.0-12.0 SECONDS Prothromb Time International Ratio 1.1 0.9-1.1 Microbiology Results 01/19/18 Urine Culture - Preliminary, Resulted Gram Negative Bacilli
[2018-01-20] MEDS: METOPROLOL TARTRATE 1 MG/ML VIAL IV. SCH ×2 (18:13→23:10)
[2018-01-20] MEDS: ACETAMINOPHEN 325 MG TAB PO PRN (19:25)
[2018-01-20] MEDS: ROPINIROLE HCL 1 MG TAB PO SCH (20:40)
[2018-01-20] MEDS: CEFTRIAXONE SOD INJ 1 GM in DEXTROSE 5% ADD-VANTAGE 50ML 50 ML IV SCH (23:07)
[2018-01-21] VITALS (7 sets, daily range): BP systolic 120–155; BP diastolic 63–82; PULSE 90–112; TEMP 36.7–37.1; O2SAT 96–100
[2018-01-21] MEDS: PANTOprazole INJ 40 MG in DEXTROSE 5% 100ML IV SCH ×5 (01:19→20:48)
[2018-01-21] MEDS: METOPROLOL TARTRATE 1 MG/ML VIAL IV. SCH ×3 (05:30→18:53)
[2018-01-21 06:46] LABS: BASO % 0.7 %; BASO ABS # 0.03 K/uL (0-0.2); EOS % 18.4 %; EOS ABS # 0.78 K/uL (0-0.5); HEMATOCRIT 26.9 % (37-47); HEMOGLOBIN 9.4 g/dL (12.0-16.0); IG# 0.02 K/uL (0.00-0.02); LYMPH % 29.9 %; LYMPH ABS # 1.27 K/uL (1.2-3.4); MEAN CELL VOLUME 92.4 fL (80-100); MEAN CORPUSCULAR HEMOGLOBIN 32.3 pg (25-34); MEAN CORPUSCULAR HGB CONC 34.9 g/dl (32-36); MEAN PLATELET VOLUME 9.2 fL (7.4-10.4); MONO % 10.8 %; MONO ABS # 0.46 K/uL (0.11-0.59); NEUT % 39.7 %; NEUT ABS # 1.69 K/uL (1.4-6.5); PLATELET COUNT 163 K/uL (130-400); RED CELL DISTRIBUTION WIDTH CV 14.9 % (11.5-14.5); RED CELL DISTRIBUTION WIDTH SD 50.5 fL (36.4-46.3); WHITE BLOOD COUNT 4.25 K/uL (4.8-10.8)
[2018-01-21 06:53] LABS: INR 1.1 (0.9-1.1)
[2018-01-21 07:30] LABS: CALCIUM 8.2 mg/dl (8.5-10.1); CREATININE 0.89 mg/dl (0.60-1.20); POTASSIUM 3.7 mmol/L (3.5-5.1)
[2018-01-21] MEDS: LINEZOLID / D5W 600 MG in PREMIXED IN D5W 300 ML IV SCH ×2 (08:49→20:48)
[2018-01-21] MEDS: FLUTICASONE/SALMETEROL 250/50 (ADVAIR) 14 PUFF/1 INHALER INH SCH ×2 (08:49→20:49)
[2018-01-21] MEDS: EUCERIN CR 120 GM JAR EXT SCH ×2 (08:49→20:50)
[2018-01-21] MEDS: D5W AND 1/2NSS 1,000 ML IV SCH ×2 (08:52→21:35)
--- NOTE | 2018-01-21 10:20 | Gastroenterology Progress Note ---
Progress Note Date of Service: Jan 21, 2018 Subjective Pt evaluation today including: conversation w/ patient, conversation w/ family Appears improved looking today, has been diagnosed with a UTI and had her antibiotics broadened to include Rocephin to the Zyvox she was previously on. She specifically has had no bowel movements, no hematemesis, blood counts have been stable. Review of Systems Constitutional: No see HPI, No fever, No chills, No sweats, No weight loss, No weakness, No fatigue, No problem reported Eyes: No see HPI, No worsening of vision, No eye pain, No redness, No discharge , No diplopia, No problem reported ENT: No see HPI, No hearing loss, No unusual epistaxis, No nasal symptoms, No sore throat, No tinnitus, No dental problems, No trouble swallowing, No pain on swallowing, No problem reported Respiratory: No see HPI, No cough, No sputum, No wheezing, No shortness of breath, No dyspnea on exertion, No dyspnea at rest, No hemoptysis, No problem reported Cardiac: No see HPI, No chest pain, No orthopnea, No PND, No edema, No claudication, No palpitations, No problem reported Abdomen: No see HPI, No pain, No nausea, No vomiting, No diarrhea, No constipation, No GI bleeding, No dysphagia, No odynophagia, No acolic stools, No jaundice, No dark urine, No problem reported Musculoskeletal: No see HPI, No joint pain, No muscle pain, No swelling, No calf pain, No problem reported Medications Current Inpatient Medications Medications (Trade) Dose Ordered Sig/Joceline Route Start Time Stop Time Status Last Admin Dose Admin Acetaminophen (Tylenol Tab) 650 mg Q4H PRN PO 01/19/18 13:30 02/18/18 13:29 01/20/18 19:25 650 MG Dextrose/Sodium Chloride 1,000 ml @ 75 mls/hr [id number] IV 01/19/18 16:00 02/18/18 15:59 01/21/18 08:52 75 MLS/HR Albuterol (Ventolin Hfa Inhaler) 2 puffs Q6H PRN INH 01/19/18 14:30 02/18/18 14:29 Multi-Ingredient Ointment (Eucerin Unscented Cr) 1 appln AMHS EXT 01/19/18 21:00 02/18/18 20:59 01/21/18 08:49 1 APPLN Salmeterol Xinafoate/ Fluticasone (Advair Diskus 250/50 Inh) 1 puff BID INH 01/19/18 21:00 02/18/18 20:59 01/21/18 08:49 1 PUFF Triamcinolone Acetonide (Kenalog 0.5% Crm) 1 appln BID PRN EXT 01/19/18 14:30 02/18/18 14:29 Linezolid 600 mg/ Prmx 300 ml @ 300 mls/hr Q12 IV 01/19/18 21:00 01/29/18 20:59 01/21/18 08:49 300 MLS/HR Pantoprazole Sodium 40 mg/ Dextrose 100 ml @ 20 mls/hr Q5H IV 01/19/18 19:00 02/18/18 18:59 01/21/18 05:28 20 MLS/HR Ceftriaxone Sodium 1 gm/ Dextrose 50 ml @ 100 mls/hr Q24H IV 01/19/18 23:00 01/29/18 22:59 01/20/18 23:07 100 MLS/HR Ropinirole HCl (Requip Tab) 1 mg HS PO 01/20/18 21:00 02/19/18 20:59 01/20/18 20:40 1 MG Metoprolol Tartrate (Lopressor Iv) 2.5 mg Q6 IV. 01/20/18 18:00 02/19/18 17:59 01/21/18 05:30 2.5 MG Objective Vital Signs Date Time Temp Pulse Resp B/P (MAP) Pulse Ox O2 Delivery O2 Flow Rate FiO2 01/21/18 07:00 37.1 102 17 129/73 (91) 97 Room Air 01/21/18 05:30 106 129/74 01/21/18 03:30 36.7 104 20 120/72 (88) 99 Room Air 01/20/18 23:20 36.6 105 19 150/73 (98) 98 Room Air 01/20/18 23:10 102 100/64 01/20/18 20:00 37.1 98 16 121/72 (88) 100 Room Air 01/20/18 20:00 100 Room Air 01/20/18 18:13 116 112/63 01/20/18 16:00 99 Room Air 01/20/18 15:08 36.7 116 18 112/63 (79) 99 Room Air 01/20/18 14:18 115 95 01/20/18 11:49 37.0 106 18 124/75 (91) 97 Physical Exam General Appearance: WD/WN, no apparent distress, + pertinent finding (Improved appearing today more awake and alert) Respiratory/Chest: chest non-tender, lungs clear, normal breath sounds, + respiratory distress Cardiovascular: regular rate, rhythm, no edema Abdomen: normal bowel sounds, non tender, soft Extremities: normal range of motion, non-tender 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03 K/uL RDW Standard Deviation 50.5 fL RDW Coefficient of Variation 14.9 % Immature Granulocyte % (Auto) 0.5 % Immature Granulocyte # (Auto) 0.02 K/uL Prothrombin Time 11.1 SECONDS Prothromb Time International Ratio 1.1 Sodium Level 140 mmol/L Potassium Level 3.7 mmol/L Chloride Level 106 mmol/L Carbon Dioxide Level 26 mmol/L Anion Gap 8.0 mmol/L Blood Urea Nitrogen 13 mg/dl Creatinine 0.89 mg/dl Est Creatinine Clear Calc Drug Dose 36.7 ml/min Estimated GFR () 70.0 Estimated GFR (Non- 60.4 BUN/Creatinine Ratio 14.4 Random Glucose 106 mg/dl Calcium Level 8.2 mg/dl Assessment and Plan 82 yo presenting from [facility] with possible "dark stools" and anemia with recent identification of shoulder infection after recent othopedic surgery.. No signs of active GI bleed. INR has been reversed. Continue to hold coumadin. Her Hb since october has been quite variable, so anemia as been present since then. Hb since has been 7-10 and Hb is stable after blood tx and actually has improved since yesterday. Continue IV PPI infusion Ok for Clears can advance to full liquids this evening barring any further signs of bleeding If has evidence of significant bleeding then will plan on EGD, however, discussed with daughter Bella, who stated that she would like to avoid EGD if possible, however if obviously she was having a life-threatening bleed which she does not appear to be having that she would reconsider. Dr. Patrick will return tomorrow to determine plan. I will put her n.p.o. after midnight in case EGD desires to be pursued tomorrow. Call with questions or change in clinical status.
--- NOTE | 2018-01-21 11:14 | Progress Note ---
Internal Med Progress Note Date of Service: Jan 21, 2018. Provider Documentation: SUBJECTIVE: The patient was seen and examined in telemetry unit Feels a little better since admission Looks depressed and anxious Denies any significant symptoms 01/21: Generally weak but denies any other symptoms No fever, chills, no more diarrhea and/or bleeding Feels a little better OBJECTIVE: Vital Signs-as noted below Exam: General-no apparent distress at rest Has increased parkinsonian tremors Generally very anxious about the medical illness Eyes-normal ENT-normal Neck-supple Lungs-decreased breath sounds with minimal bibasilar crackles Heart-regular Abdomen-soft, benign, mildly tender, bowel sounds present Extremities-trace edema bilaterally, no calf tenderness and no swelling Left shoulder joint minimally swollen, minimally tender but painful on movement Neuro-alert and awake Generally weak and lethargic Lab data as noted below. 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 Acute blood loss anemia 2/2 GI bleed Supra-therapeutic INR -Rust colored BM late last evening, reported by [facility] -Hgb decreased to 6.2 (hgb of 9 four days ago) -Has been on Coumadin for DVT, supratherapeutic INR of 6.7 reported 01/17-- has been held -INR of 4.3 today. Given IV 2.5mg Vit K in ED for reversal -Monitor hgb & hct Q6H -Transfusing 2 units prbcs -Protonix bolus and drip -GI consulted-appreciate input -NPO with IV fluids-will start clears -No more bright red blood per rectum -Likely to go for EGD sometime during the hospitalization -Received 2 units of packed red cell and hemoglobin went up to 9.2 from 6.31 admission -Monitor H&H and continue intravenous Protonix -Hemoglobin remains stable at more than 9 and no more evidence of black and/or brown stool -No endoscopy as per GI if remains stable -Likely to start Coumadin on discharge but that has to be discussed with the daughter History of DVT on Coumadin Coumadin is on hold now and INR is normal today Probably will need small dose of Coumadin on discharge to prevent clot formation Will discuss with the daughter in detail H/o septic shoulder joint infection without any prior history of surgery -Right shoulder I&D, stimulon bead implantation in November (grew staph aureus) -Wound dehiscence, hematoma evacuation and washout in December (grew corynebacterium ) -Currently following with Dr. Chau out-patient. Began PO Zyvox on January 01 for 4 week course -No current leukocytosis or evidence of worsening infection -IV Zyvox while NPO -ID consulted-appreciate input HTN -Continue metoprolol Parkinson's Disease ; cannot start any antiparkinsonian medications due to interaction with Zyvox -Carbidopa/levodopa held while on Zyvox -Discussed with pharmacy, there is serious interaction between Zyvox and anti- parkinsonian medications -We will not start any libido for/carbidopa -Requip was started Asthma -Continue Advair, albuterol PRN -Singulair HS HLD -Continue Depression -Effexor held while on Zyvox DVT Ppx: SCDs (GI bleed) Code status: FULL per discussion with patient's daughter PCP: Kaden Dispo: Admitted to telemetry. Discharge planning back to [facility]. Likely go to [facility] tomorrow Vital Signs: Date Time Temp Pulse Resp B/P (MAP) Pulse Ox O2 Delivery O2 Flow Rate FiO2 01/21/18 07:00 37.1 102 17 129/73 (91) 97 Room Air 01/21/18 05:30 106 129/74 01/21/18 03:30 36.7 104 20 120/72 (88) 99 Room Air 01/20/18 23:20 36.6 105 19 150/73 (98) 98 Room Air 01/20/18 23:10 102 100/64 01/20/18 20:00 37.1 98 16 121/72 (88) 100 Room Air 01/20/18 20:00 100 Room Air 01/20/18 18:13 116 112/63 01/20/18 16:00 99 Room Air 01/20/18 15:08 36.7 116 18 112/63 (79) 99 Room Air 01/20/18 14:18 115 95 01/20/18 11:49 37.0 106 18 124/75 (91) 97 Lab Results: Results Past 24 Hours Test 01/21/18 06:15 Range/Units White Blood Count 4.25 4.8-10.8 K/uL Red Blood Count 2.91 4.2-5.4 M/uL Hemoglobin 9.4 12.0-16.0 g/dL Hematocrit 26.9 37-47 % Mean Corpuscular Volume 92.4 80-100 fL Mean Corpuscular Hemoglobin 32.3 25-34 pg Mean Corpuscular Hemoglobin Concent 34.9 32-36 g/dl Platelet Count 163 130-400 K/uL Mean Platelet Volume 9.2 7.4-10.4 fL Neutrophils (%) (Auto) 39.7 % Lymphocytes (%) (Auto) 29.9 % Monocytes (%) (Auto) 10.8 % Eosinophils (%) (Auto) 18.4 % Basophils (%) (Auto) 0.7 % Neutrophils # (Auto) 1.69 1.4-6.5 K/uL Lymphocytes # (Auto) 1.27 1.2-3.4 K/uL Monocytes # (Auto) 0.46 0.11-0.59 K/uL Eosinophils # (Auto) 0.78 0-0.5 K/uL Basophils # (Auto) 0.03 0-0.2 K/uL RDW Standard Deviation 50.5 36.4-46.3 fL RDW Coefficient of Variation 14.9 11.5-14.5 % Immature Granulocyte % (Auto) 0.5 % Immature Granulocyte # (Auto) 0.02 0.00-0.02 K/uL Prothrombin Time 11.1 9.0-12.0 SECONDS Prothromb Time International Ratio 1.1 0.9-1.1 Sodium Level 140 136-145 mmol/L Potassium Level 3.7 3.5-5.1 mmol/L Chloride Level 106 98-107 mmol/L Carbon Dioxide Level 26 21-32 mmol/L Anion Gap 8.0 3-11 mmol/L Blood Urea Nitrogen 13 7-18 mg/dl Creatinine 0.89 0.60-1.20 mg/dl Est Creatinine Clear Calc Drug Dose 36.7 ml/min Estimated GFR () 70.0 Estimated GFR (Non- 60.4 BUN/Creatinine Ratio 14.4 10-20 Random Glucose 106 70-99 mg/dl Calcium Level 8.2 8.5-10.1 mg/dl
[2018-01-21] MEDS: ROPINIROLE HCL 1 MG TAB PO SCH (20:48)
[2018-01-21] MEDS: ACETAMINOPHEN 325 MG TAB PO PRN (21:39)
[2018-01-22] VITALS (7 sets, daily range): BP systolic 115–153; BP diastolic 62–75; PULSE 91–115; TEMP 36.5–36.7; O2SAT 94–100
[2018-01-22] MEDS: CEFTRIAXONE SOD INJ 1 GM in DEXTROSE 5% ADD-VANTAGE 50ML 50 ML IV SCH ×2 (00:03→20:39)
[2018-01-22] MEDS: METOPROLOL TARTRATE 1 MG/ML VIAL IV. SCH ×4 (00:04→16:50)
[2018-01-22] MEDS: PANTOprazole INJ 40 MG in DEXTROSE 5% 100ML IV SCH ×3 (02:00→12:00)
[2018-01-22 05:50] LABS: BASO % 0.4 %; BASO ABS # 0.02 K/uL (0-0.2); EOS % 21.3 %; EOS ABS # 0.97 K/uL (0-0.5); HEMATOCRIT 27.1 % (37-47); HEMOGLOBIN 9.4 g/dL (12.0-16.0); IG# 0.01 K/uL (0.00-0.02); LYMPH % 31.9 %; LYMPH ABS # 1.45 K/uL (1.2-3.4); MEAN CELL VOLUME 92.5 fL (80-100); MEAN CORPUSCULAR HEMOGLOBIN 32.1 pg (25-34); MEAN CORPUSCULAR HGB CONC 34.7 g/dl (32-36); MEAN PLATELET VOLUME 9.4 fL (7.4-10.4); MONO % 11.6 %; MONO ABS # 0.53 K/uL (0.11-0.59); NEUT % 34.6 %; NEUT ABS # 1.57 K/uL (1.4-6.5); PLATELET COUNT 166 K/uL (130-400); RED CELL DISTRIBUTION WIDTH CV 14.6 % (11.5-14.5); RED CELL DISTRIBUTION WIDTH SD 49.3 fL (36.4-46.3); WHITE BLOOD COUNT 4.55 K/uL (4.8-10.8)
[2018-01-22 06:22] LABS: CALCIUM 8.2 mg/dl (8.5-10.1); CREATININE 0.79 mg/dl (0.60-1.20); PHOSPHORUS 2.8 mg/dl (2.5-4.9); POTASSIUM 3.5 mmol/L (3.5-5.1)
[2018-01-22] MEDS: FLUTICASONE/SALMETEROL 250/50 (ADVAIR) 14 PUFF/1 INHALER INH SCH ×2 (07:48→20:39)
[2018-01-22] MEDS: EUCERIN CR 120 GM JAR EXT SCH ×2 (07:48→20:39)
[2018-01-22] MEDS: LINEZOLID / D5W 600 MG in PREMIXED IN D5W 300 ML IV SCH ×2 (08:42→20:39)
--- NOTE | 2018-01-22 09:44 | Gastroenterology Progress Note ---
Progress Note Date of Service: Jan 22, 2018 Subjective Pt evaluation today including: conversation w/ patient, physical exam, chart review, lab review, review of inpatient medication list Patient reports feeling slightly fatigued but is otherwise feeling well. She reports resolved nausea. No vomiting, abdominal pain or overt GIB. Continues a PPI ggt. H&H remains unchanged today and did not drop any further. Was noted to be 9.4/27.1 today. Review of Systems Constitutional: + see HPI Respiratory: No problem reported Cardiac: No problem reported Abdomen: + see HPI Medications Current Inpatient Medications Medications (Trade) Dose Ordered Sig/Joceline Route Start Time Stop Time Status Last Admin Dose Admin Acetaminophen (Tylenol Tab) 650 mg Q4H PRN PO 01/19/18 13:30 02/18/18 13:29 01/21/18 21:39 650 MG Dextrose/Sodium Chloride 1,000 ml @ 75 mls/hr [id number] IV 01/19/18 16:00 02/18/18 15:59 01/21/18 21:35 75 MLS/HR Albuterol (Ventolin Hfa Inhaler) 2 puffs Q6H PRN INH 01/19/18 14:30 02/18/18 14:29 Multi-Ingredient Ointment (Eucerin Unscented Cr) 1 appln AMHS EXT 01/19/18 21:00 02/18/18 20:59 01/22/18 07:48 1 APPLN Salmeterol Xinafoate/ Fluticasone (Advair Diskus 250/50 Inh) 1 puff BID INH 01/19/18 21:00 02/18/18 20:59 01/22/18 07:48 1 PUFF Triamcinolone Acetonide (Kenalog 0.5% Crm) 1 appln BID PRN EXT 01/19/18 14:30 02/18/18 14:29 Linezolid 600 mg/ Prmx 300 ml @ 300 mls/hr Q12 IV 01/19/18 21:00 01/29/18 20:59 01/22/18 08:42 300 MLS/HR Pantoprazole Sodium 40 mg/ Dextrose 100 ml @ 20 mls/hr Q5H IV 01/19/18 19:00 02/18/18 18:59 01/22/18 06:45 20 MLS/HR Ceftriaxone Sodium 1 gm/ Dextrose 50 ml @ 100 mls/hr Q24H IV 01/19/18 23:00 01/29/18 22:59 01/22/18 00:03 100 MLS/HR Ropinirole HCl (Requip Tab) 1 mg HS PO 01/20/18 21:00 02/19/18 20:59 01/21/18 20:48 1 MG Metoprolol Tartrate (Lopressor Iv) 2.5 mg Q6 IV. 01/20/18 18:00 02/19/18 17:59 01/22/18 06:21 2.5 MG Objective Vital Signs Date Time Temp Pulse Resp B/P (MAP) Pulse Ox O2 Delivery O2 Flow Rate FiO2 01/22/18 08:00 Room Air 01/22/18 07:43 36.6 97 18 153/73 (99) 94 Room Air 01/22/18 06:57 36.5 93 18 115/62 (79) 96 Room Air 01/22/18 06:21 93 145/71 01/22/18 04:34 36.6 93 18 144/74 (97) 96 Room Air 01/22/18 00:04 97 114/68 01/22/18 00:01 Room Air 01/21/18 23:11 36.7 90 15 122/65 (84) 100 Room Air 01/21/18 19:13 36.7 94 16 151/63 (92) 100 Room Air 01/21/18 18:53 106 155/82 01/21/18 16:00 96 Room Air 01/21/18 15:31 36.8 106 16 155/82 (106) 96 Room Air 01/21/18 11:56 112 149/74 01/21/18 11:39 36.7 112 18 149/74 (99) 99 Room Air Physical Exam General Appearance: no apparent distress Respiratory/Chest: lungs clear Cardiovascular: regular rate, rhythm Abdomen: normal bowel sounds, soft Neurologic/Psych: alert Laboratory Results Last 24 Hours Test 01/22/18 00:03 01/22/18 05:29 White Blood Count 4.55 K/uL Red Blood Count 2.93 M/uL Hemoglobin 9.4 g/dL Hematocrit 27.1 % Mean Corpuscular Volume 92.5 fL Mean Corpuscular Hemoglobin 32.1 pg Mean Corpuscular Hemoglobin Concent 34.7 g/dl Platelet Count 166 K/uL Mean Platelet Volume 9.4 fL Neutrophils (%) (Auto) 34.6 % Lymphocytes (%) (Auto) 31.9 % Monocytes (%) (Auto) 11.6 % Eosinophils (%) (Auto) 21.3 % Basophils (%) (Auto) 0.4 % Neutrophils # (Auto) 1.57 K/uL Lymphocytes # (Auto) 1.45 K/uL Monocytes # (Auto) 0.53 K/uL Eosinophils # (Auto) 0.97 K/uL Basophils # (Auto) 0.02 K/uL RDW Standard Deviation 49.3 fL RDW Coefficient of Variation 14.6 % Immature Granulocyte % (Auto) 0.2 % Immature Granulocyte # (Auto) 0.01 K/uL Sodium Level 141 mmol/L Potassium Level 3.5 mmol/L Chloride Level 109 mmol/L Carbon Dioxide Level 21 mmol/L Anion Gap 11.0 mmol/L Blood Urea Nitrogen 8 mg/dl Creatinine 0.79 mg/dl Est Creatinine Clear Calc Drug Dose 41.4 ml/min Estimated GFR () 80.8 Estimated GFR (Non- 69.7 BUN/Creatinine Ratio 10.4 Random Glucose 108 mg/dl Calcium Level 8.2 mg/dl Phosphorus Level 2.8 mg/dl Magnesium Level 1.9 mg/dl Assessment and Plan Patient is a 82 year-old female admitted with anemia and dark stools s/p orthopedic surgery. 1. As H&H remains stable, no plan for invasive GI work up. 2. Clear liquid diet. Advance as tolerated. 3. Okay to transition to Protonix 40 mg BID and discontinue PPI ggt. 4. Continue supportive medical management. Agree with FANI Giron as above Abd: Soft, NT, ND, +BS Continue current therapy No invasive GI workup as per patient and her daughter unless she has further overt GI bleeding
--- NOTE | 2018-01-22 11:01 | Clinical Documentation Query ---
BHAVYA [place] : CLINICAL DOCUMENTATION QUERY Patient is an 82 year old female admitted with acute blood loss anemia secondary to GI bleeding in the setting of a supratherapeutic INR. She was noted to have rust colored stools and a hemoglobin on 6.2 g/dl (reportedly 9 g/dl four days ago). INR of 6.7 reported on 01/17. Given Vitamin K in ED. Monitored with serial hematology and transfused PRBC's. PPI infusion ongoing and GI consultation undertaken. As appropriate, consider documentation as suggested below as this impacts accurate code and DRG assignment. Thank you. In your clinical opinion is this patient being managed for: ( x) GI bleed (likely) due to Coumadin therapy ( ) Not Agree ( ) Other explanation of clinical findings (No explanation is considered a No Response) ( ) Unable to determine ( ) Need to Discuss (Phone CDS or qliq) (No discussion is considered a No Response) The medical record reflects the following clinical findings, treatment, and risk factors. Clinical Indicators: As above Treatment:Given Vitamin K in ED. Monitored with serial hematology and transfused PRBC's. PPI infusion ongoing and GI consultation undertaken. Risk Factors: Coumadin use Please clarify and document your clinical opinion in the progress notes and discharge summary. Terms such as "probable", "suspected", "likely", "questionable", "possible", or "still to be ruled out" are acceptable. IF IN AGREEMENT, YOU MUST DOCUMENT ABOVE DIAGNOSTIC STATEMENT IN DAILY PROGRESS NOTES AND DISCHARGE SUMMARY. This document is not part of the patient's record. Thank You, Jonathan Restrepo, RN [phone]
[2018-01-22] MEDS: D5W AND 1/2NSS 1,000 ML IV SCH (11:05)
[2018-01-22] MEDS ORDERED: NURSING VERBAL MED ORDER ONE ×2 (12:30→16:30)
--- NOTE | 2018-01-22 16:45 | Progress Note ---
Medicine Progress Note Date & Time of Visit: Jan 22, 2018 at 16:26. Subjective Pt was seen and examined Sitting in chair with no distress Pt said that she feels fine She said that her last BM was about 2 days ago She tolerated clear liquid diet Denies any chest pain, palpitation, dizziness and SOB Objective Last 8 Hrs Date Time Temp Pulse Resp B/P (MAP) Pulse Ox O2 Delivery O2 Flow Rate FiO2 01/22/18 16:00 Room Air 01/22/18 15:03 36.7 96 18 119/71 (87) 99 Room Air 01/22/18 12:29 115 136/69 01/22/18 11:57 36.5 115 19 136/69 (91) 95 Room Air Physical Exam: General- No acute distress Head- atraumatic Eyes- PERRL, EOMI ENT- oropharynx clear Neck- supple, no JVD Lungs- clear to auscultation Heart- regular rhythm; no murmur Abdomen- normal bowel sounds, soft Extremities- no calf tenderness Neuro- alert, oriented, PERRL, EOMI Skin- warm & dry Laboratory Results: Last 24 Hours Test 01/22/18 00:03 01/22/18 05:29 White Blood Count 4.55 K/uL Red Blood Count 2.93 M/uL Hemoglobin 9.4 g/dL Hematocrit 27.1 % Mean Corpuscular Volume 92.5 fL Mean Corpuscular Hemoglobin 32.1 pg Mean Corpuscular Hemoglobin Concent 34.7 g/dl Platelet Count 166 K/uL Mean Platelet Volume 9.4 fL Neutrophils (%) (Auto) 34.6 % Lymphocytes (%) (Auto) 31.9 % Monocytes (%) (Auto) 11.6 % Eosinophils (%) (Auto) 21.3 % Basophils (%) (Auto) 0.4 % Neutrophils # (Auto) 1.57 K/uL Lymphocytes # (Auto) 1.45 K/uL Monocytes # (Auto) 0.53 K/uL Eosinophils # (Auto) 0.97 K/uL Basophils # (Auto) 0.02 K/uL RDW Standard Deviation 49.3 fL RDW Coefficient of Variation 14.6 % Immature Granulocyte % (Auto) 0.2 % Immature Granulocyte # (Auto) 0.01 K/uL Sodium Level 141 mmol/L Potassium Level 3.5 mmol/L Chloride Level 109 mmol/L Carbon Dioxide Level 21 mmol/L Anion Gap 11.0 mmol/L Blood Urea Nitrogen 8 mg/dl Creatinine 0.79 mg/dl Est Creatinine Clear Calc Drug Dose 41.4 ml/min Estimated GFR () 80.8 Estimated GFR (Non- 69.7 BUN/Creatinine Ratio 10.4 Random Glucose 108 mg/dl Calcium Level 8.2 mg/dl Phosphorus Level 2.8 mg/dl Magnesium Level 1.9 mg/dl Assessment & Plan Patient is an 82-year-old female from [facility] with a PMH of history of DVT (on Coumadin), HTN, Parkinson's disease, asthma, HLD and depression who presents from [facility] with bloody stool and symptomatic anemia. GI Bleed Acute blood loss anemia Mostly due to supra therapeutic INR Hgb on admission 6.2 from 9, 4 days prior to the admission Received IV Vit K in the ER Coumadin has been on hold since 01/17 Hgb has been stable Received 2 units PRBC during hospital course IV protonix changed to oral GI on board no scope since h/h has been stable Denies any further GI bleed Case discussed with the GI team today and recommend to hold coumadin for now Will consider to resume it tomorrow or on discharge Hx of DVT Coumadin has been on hold Will resume coumadin in am If bleeding continues to reoccur, will consider IVC eval Will discuss with daughter H/o septic shoulder joint infection without any prior history of surgery Right shoulder I&D, stimulon bead implantation in November (grew staph aureus) Wound dehiscence, hematoma evacuation and washout in December (grew corynebacterium) Currently following with Dr. Chau out-patient. Began PO Zyvox on January 01 for 4 week course No current leukocytosis or evidence of worsening infection Will transition to oral zyvox once discharge ID on board HTN Continue metoprolol Parkinson's Disease Carbidopa/levodopa held while on Zyvox due to drug interaction between Zyvox and anti-parkinsonian medications Resume levodopa/carbidopa once completes course of Zyvox Continue Requip Asthma Continue Advair, albuterol PRN Singulair HS HLD Continue Depression Effexor held while on Zyvox DVT Ppx: SCDs (GI bleed) Code status: FULL CODE Dispo: Admitted to telemetry. Discharge planning back to [facility]. Likely go to [facility] tomorrow Current Inpatient Medications: Current Inpatient Medications Medications (Trade) Dose Ordered Sig/Joceline Route Start Time Stop Time Status Last Admin Dose Admin Acetaminophen (Tylenol Tab) 650 mg Q4H PRN PO 01/19/18 13:30 02/18/18 13:29 01/21/18 21:39 650 MG Dextrose/Sodium Chloride 1,000 ml @ 75 mls/hr [id number] IV 01/19/18 16:00 02/18/18 15:59 01/22/18 11:05 75 MLS/HR Albuterol (Ventolin Hfa Inhaler) 2 puffs Q6H PRN INH 01/19/18 14:30 02/18/18 14:29 Multi-Ingredient Ointment (Eucerin Unscented Cr) 1 appln AMHS EXT 01/19/18 21:00 02/18/18 20:59 01/22/18 07:48 1 APPLN Salmeterol Xinafoate/ Fluticasone (Advair Diskus 250/50 Inh) 1 puff BID INH 01/19/18 21:00 02/18/18 20:59 01/22/18 07:48 1 PUFF Triamcinolone Acetonide (Kenalog 0.5% Crm) 1 appln BID PRN EXT 01/19/18 14:30 02/18/18 14:29 Linezolid 600 mg/ Prmx 300 ml @ 300 mls/hr Q12 IV 01/19/18 21:00 01/29/18 20:59 01/22/18 08:42 300 MLS/HR Ceftriaxone Sodium 1 gm/ Dextrose 50 ml @ 100 mls/hr Q24H IV 01/19/18 23:00 01/29/18 22:59 01/22/18 00:03 100 MLS/HR Ropinirole HCl (Requip Tab) 1 mg HS PO 01/20/18 21:00 02/19/18 20:59 01/21/18 20:48 1 MG Metoprolol Tartrate (Lopressor Iv) 2.5 mg Q6 IV. 01/20/18 18:00 02/19/18 17:59 01/22/18 12:29 2.5 MG Pantoprazole Sodium (Protonix Tab) 40 mg BID PO 01/22/18 21:00 02/21/18 20:59
[2018-01-22] MEDS: ACETAMINOPHEN 325 MG TAB PO PRN (19:02)
[2018-01-22] MEDS: ROPINIROLE HCL 1 MG TAB PO SCH (20:40)
[2018-01-22] MEDS: PANTOprazole SOD 40 MG TAB PO SCH (20:40)
[2018-01-23] VITALS (8 sets, daily range): BP systolic 110–148; BP diastolic 62–77; PULSE 62–107; TEMP 36.4–36.8; O2SAT 92–100
[2018-01-23] MEDS: METOPROLOL TARTRATE 1 MG/ML VIAL IV. SCH ×4 (00:15→18:19)
[2018-01-23 07:03] LABS: HEMOGLOBIN 9.3 g/dL (12.0-16.0); MEAN CELL VOLUME 91.5 fL (80-100); MEAN CORPUSCULAR HEMOGLOBIN 31.5 pg (25-34); MEAN CORPUSCULAR HGB CONC 34.4 g/dl (32-36); MEAN PLATELET VOLUME 9.3 fL (7.4-10.4); PLATELET COUNT 164 K/uL (130-400); RED CELL DISTRIBUTION WIDTH CV 14.2 % (11.5-14.5); RED CELL DISTRIBUTION WIDTH SD 47.5 fL (36.4-46.3); WHITE BLOOD COUNT 4.34 K/uL (4.8-10.8)
[2018-01-23] MEDS: EUCERIN CR 120 GM JAR EXT SCH ×2 (08:49→20:52)
[2018-01-23] MEDS: PANTOprazole SOD 40 MG TAB PO SCH ×2 (08:49→20:51)
[2018-01-23] MEDS: LINEZOLID / D5W 600 MG in PREMIXED IN D5W 300 ML IV SCH ×2 (08:49→20:51)
[2018-01-23] MEDS: FLUTICASONE/SALMETEROL 250/50 (ADVAIR) 14 PUFF/1 INHALER INH SCH ×2 (08:49→20:51)
[2018-01-23] MEDS: ACETAMINOPHEN 325 MG TAB PO PRN (18:16)
--- NOTE | 2018-01-23 18:30 | Progress Note ---
Medicine Progress Note Date & Time of Visit: Jan 23, 2018 at 18:18. Subjective Pt was seen and examined Lying in bed with no distress Pt is very anxious to go back to [facility] She said that she probably will need a higher level of care once she gets to [facility] She had a dark bowel movement today Denies any chest pain, palpitation, dizziness and SOB Objective Last 8 Hrs Date Time Temp Pulse Resp B/P (MAP) Pulse Ox O2 Delivery O2 Flow Rate FiO2 01/23/18 15:21 36.7 62 20 112/68 (83) 92 Room Air 01/23/18 12:31 113 148/77 01/23/18 11:41 36.8 107 18 148/77 (100) 98 Room Air Physical Exam: General- No acute distress Head- atraumatic Eyes- PERRL, EOMI ENT- oropharynx clear Neck- supple, no JVD Lungs- clear to auscultation Heart- regular rhythm Extremities- no calf tenderness Neuro- alert, oriented, PERRL, EOMI Skin- warm & dry Laboratory Results: Last 24 Hours Test 01/23/18 06:41 White Blood Count 4.34 K/uL Red Blood Count 2.95 M/uL Hemoglobin 9.3 g/dL Hematocrit 27.0 % Mean Corpuscular Volume 91.5 fL Mean Corpuscular Hemoglobin 31.5 pg Mean Corpuscular Hemoglobin Concent 34.4 g/dl RDW Standard Deviation 47.5 fL RDW Coefficient of Variation 14.2 % Platelet Count 164 K/uL Mean Platelet Volume 9.3 fL Assessment & Plan Patient is an 82-year-old female from [facility] with a PMH of 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 GI Bleed Acute blood loss anemia Mostly due to supra therapeutic INR Hgb on admission 6.2 from 9, 4 days prior to the admission Received IV Vit K in the ER Coumadin has been on hold since 01/17 Hgb has been stable at 9.3 today Received 2 units PRBC during hospital course IV protonix changed to oral GI on board no scope since h/h has been stable Denies any further GI bleed Case discussed with the GI team today and recommend to hold coumadin for now Consider to resume it tomorrow or on discharge Hx of DVT Coumadin has been on hold If bleeding continues to reoccur, will consider IVC eval Case discussed with daughter in detail about IVC filter Since pt GI bleed occurred due to supra therapeutic INR, will hold on on IVC filter for now I reviewed her venous doppler that was done in 11/27 before coumadin was starting Venous doppler suggested age indeterminate occlusive deep venous thrombus within the right peroneal vein. Not sure when pt had the DVT. Coumadin was adding after this imaging Will resume coumadin at a low dose tomorrow H/o septic shoulder joint infection without any prior history of surgery Right shoulder I&D, stimulon bead implantation in November (grew staph aureus) Wound dehiscence, hematoma evacuation and washout in December (grew corynebacterium) Currently following with Dr. Chau out-patient. Began PO Zyvox on January 01 for 4 week course No current leukocytosis or evidence of worsening infection Will transition to oral zyvox once discharge ID on board HTN Continue metoprolol Parkinson's Disease Carbidopa/levodopa held while on Zyvox due to drug interaction between Zyvox and anti-parkinsonian medications Resume levodopa/carbidopa once completes course of Zyvox Continue Requip Asthma Continue Advair, albuterol PRN Singulair HS HLD Continue Depression Effexor held while on Zyvox DVT Ppx: SCDs (GI bleed) Code status: FULL CODE Dispo: Admitted to telemetry. Discharge planning back to [facility]. Likely go to [facility] tomorrow Current Inpatient Medications: Current Inpatient Medications Medications (Trade) Dose Ordered Sig/Joceline Route Start Time Stop Time Status Last Admin Dose Admin Acetaminophen (Tylenol Tab) 650 mg Q4H PRN PO 01/19/18 13:30 02/18/18 13:29 01/22/18 19:02 650 MG Albuterol (Ventolin Hfa Inhaler) 2 puffs Q6H PRN INH 01/19/18 14:30 02/18/18 14:29 Multi-Ingredient Ointment (Eucerin Unscented Cr) 1 appln AMHS EXT 01/19/18 21:00 02/18/18 20:59 01/23/18 08:49 1 APPLN Salmeterol Xinafoate/ Fluticasone (Advair Diskus 250/50 Inh) 1 puff BID INH 01/19/18 21:00 02/18/18 20:59 01/23/18 08:49 1 PUFF Triamcinolone Acetonide (Kenalog 0.5% Crm) 1 appln BID PRN EXT 01/19/18 14:30 02/18/18 14:29 Linezolid 600 mg/ Prmx 300 ml @ 300 mls/hr Q12 IV 01/19/18 21:00 01/29/18 20:59 01/23/18 08:49 300 MLS/HR Ceftriaxone Sodium 1 gm/ Dextrose 50 ml @ 100 mls/hr Q24H IV 01/19/18 23:00 01/29/18 22:59 01/22/18 20:39 100 MLS/HR Ropinirole HCl (Requip Tab) 1 mg HS PO 01/20/18 21:00 02/19/18 20:59 01/22/18 20:40 1 MG Metoprolol Tartrate (Lopressor Iv) 2.5 mg Q6 IV. 01/20/18 18:00 02/19/18 17:59 01/23/18 12:31 2.5 MG Pantoprazole Sodium (Protonix Tab) 40 mg BID PO 01/22/18 21:00 02/21/18 20:59 01/23/18 08:49 40 MG
[2018-01-23] MEDS: ROPINIROLE HCL 1 MG TAB PO SCH (20:51)
[2018-01-23] MEDS: METOPROLOL TARTRATE 25 MG TAB PO SCH (21:38)
[2018-01-23] MEDS: CEFTRIAXONE SOD INJ 1 GM in DEXTROSE 5% ADD-VANTAGE 50ML 50 ML IV SCH (22:38)
[2018-01-24 04:47] VITALS: BP 125/67; PULSE 99; TEMP 36.7; O2SAT 100
[2018-01-24 07:01] VITALS: BP 143/74; PULSE 95; TEMP 36.4; O2SAT 97
[2018-01-24] MEDS: EUCERIN CR 120 GM JAR EXT SCH (07:24)
[2018-01-24] MEDS: METOPROLOL TARTRATE 25 MG TAB PO SCH (07:25)
[2018-01-24] MEDS: FLUTICASONE/SALMETEROL 250/50 (ADVAIR) 14 PUFF/1 INHALER INH SCH (07:25)
[2018-01-24] MEDS: PANTOprazole SOD 40 MG TAB PO SCH (07:25)
[2018-01-24 07:29] LABS: HEMATOCRIT 26.9 % (37-47); HEMOGLOBIN 9.4 g/dL (12.0-16.0); MEAN CELL VOLUME 91.2 fL (80-100); MEAN CORPUSCULAR HEMOGLOBIN 31.9 pg (25-34); MEAN CORPUSCULAR HGB CONC 34.9 g/dl (32-36); MEAN PLATELET VOLUME 8.8 fL (7.4-10.4); PLATELET COUNT 159 K/uL (130-400); RED CELL DISTRIBUTION WIDTH CV 14.1 % (11.5-14.5); RED CELL DISTRIBUTION WIDTH SD 47.3 fL (36.4-46.3); WHITE BLOOD COUNT 4.43 K/uL (4.8-10.8)
[2018-01-24] MEDS ORDERED: LINEZOLID 600 MG TAB PO STA (09:22)
[2018-01-24 11:00] VITALS: BP 131/75; PULSE 71; TEMP 36.8; O2SAT 96
--- NOTE | 2018-01-24 11:04 | Progress Note ---
Medicine Progress Note Date & Time of Visit: Jan 24, 2018 at 10:56. Subjective Pt was seen and examined Sitting in chair with no distress Pt has been stable for the last few days But continue to have anxiety to go back to [facility] Pt said that he had multiple episodes of diarrhea But when i confirmed with the nurse she only had one large loose BM today Her hgb has been stable Denies any chest pain, palpitation, dizziness and SOB Objective Last 8 Hrs Date Time Temp Pulse Resp B/P (MAP) Pulse Ox O2 Delivery O2 Flow Rate FiO2 01/24/18 08:00 Room Air 01/24/18 07:01 36.4 95 19 143/74 (97) 97 Room Air 01/24/18 04:47 36.7 99 18 125/67 (86) 100 Room Air Physical Exam: General- No acute distress Head- atraumatic Eyes- PERRL, EOMI ENT- oropharynx clear Neck- supple, no JVD Lungs- clear to auscultation Heart- regular rhythm Extremities- no calf tenderness Neuro- alert, oriented, PERRL, EOMI Skin- warm & dry Laboratory Results: Last 24 Hours Test 01/24/18 07:18 White Blood Count 4.43 K/uL Red Blood Count 2.95 M/uL Hemoglobin 9.4 g/dL Hematocrit 26.9 % Mean Corpuscular Volume 91.2 fL Mean Corpuscular Hemoglobin 31.9 pg Mean Corpuscular Hemoglobin Concent 34.9 g/dl RDW Standard Deviation 47.3 fL RDW Coefficient of Variation 14.1 % Platelet Count 159 K/uL Mean Platelet Volume 8.8 fL Assessment & Plan Patient is an 82-year-old female from [facility] with a PMH of 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 GI Bleed Acute blood loss anemia Mostly due to supra therapeutic INR from Coumadin Hgb on admission 6.2 from 9, 4 days prior to the admission Received IV Vit K in the ER Coumadin has been on hold since 01/17 Hgb has been stable for the last few days, (9.4 today) Received 2 units PRBC during hospital course Continue PPI oral GI on board no scope since h/h has been stable Denies any further GI bleed Case discussed with the GI team today and recommend to hold coumadin for about 7 days Will resume coumadin today at low dose Hx of DVT Coumadin has been on hold If bleeding continues to reoccur, will consider IVC eval Case discussed with daughter in detail about IVC filter Since pt GI bleed occurred due to supra therapeutic INR, will hold on on IVC filter for now I reviewed her venous doppler that was done in 11/27 before coumadin was starting Venous doppler suggested age indeterminate occlusive deep venous thrombus within the right peroneal vein. Not sure when pt had the DVT. Coumadin was adding after this imaging Will resume coumadin at a low dose today H/o septic shoulder joint infection without any prior history of surgery Right shoulder I&D, stimulon bead implantation in November (grew staph aureus) Wound dehiscence, hematoma evacuation and washout in December (grew corynebacterium) Currently following with Dr. Chau out-patient. Began PO Zyvox on January 01 for 4 week course No current leukocytosis or evidence of worsening infection Will transition to oral zyvox once discharge ID on board HTN Continue metoprolol Parkinson's Disease Carbidopa/levodopa held while on Zyvox due to drug interaction between Zyvox and anti-parkinsonian medications Resume levodopa/carbidopa once completes course of Zyvox Continue Requip Asthma Continue Advair, albuterol PRN Singulair HS HLD Continue Depression Effexor held while on Zyvox DVT Ppx: SCDs (GI bleed) Code status: FULL CODE Dispo: Admitted to telemetry. Discharge planning back to [facility]. Likely go to [facility] today Current Inpatient Medications: Current Inpatient Medications Medications (Trade) Dose Ordered Sig/Joceline Route Start Time Stop Time Status Last Admin Dose Admin Acetaminophen (Tylenol Tab) 650 mg Q4H PRN PO 01/19/18 13:30 02/18/18 13:29 01/23/18 18:16 650 MG Albuterol (Ventolin Hfa Inhaler) 2 puffs Q6H PRN INH 01/19/18 14:30 02/18/18 14:29 Multi-Ingredient Ointment (Eucerin Unscented Cr) 1 appln AMHS EXT 01/19/18 21:00 02/18/18 20:59 01/24/18 07:24 1 APPLN Salmeterol Xinafoate/ Fluticasone (Advair Diskus 250/50 Inh) 1 puff BID INH 01/19/18 21:00 02/18/18 20:59 01/24/18 07:25 1 PUFF Triamcinolone Acetonide (Kenalog 0.5% Crm) 1 appln BID PRN EXT 01/19/18 14:30 02/18/18 14:29 Ceftriaxone Sodium 1 gm/ Dextrose 50 ml @ 100 mls/hr Q24H IV 01/19/18 23:00 01/29/18 22:59 01/23/18 22:38 100 MLS/HR Ropinirole HCl (Requip Tab) 1 mg HS PO 01/20/18 21:00 02/19/18 20:59 01/23/18 20:51 1 MG Pantoprazole Sodium (Protonix Tab) 40 mg BID PO 01/22/18 21:00 02/21/18 20:59 01/24/18 07:25 40 MG Metoprolol Tartrate (Lopressor Tab) 25 mg BID PO 01/23/18 21:00 02/22/18 20:59 01/24/18 07:25 25 MG Linezolid (Zyvox Tab) 600 mg BID PO 01/24/18 21:00 02/03/18 20:59
[2018-01-24 14:36] VITALS: BP 131/75; PULSE 71; TEMP 36.8; O2SAT 96
--- NOTE | 2018-01-24 14:56 | Discharge Instructions ---
Discharge Instructions Date of Service Jan 24, 2018. Admission Reason for Admission: Anemia Due To Blood Loss, Gi Bleed Discharge Discharge Diagnosis / Problem: GI bleed, Anemia of acute blood loss, History DVT Discharge Goals Goal(s): Decrease discomfort, Improve function, Improve disease control Activity Recommendations Activity Limitations: resume your previous activity (As tolerated) . Instructions / Follow-Up Instructions / Follow-Up Follow up with your primary care provider at [facility] Follow up with the Coumadin clinic Resume Coumadin 2 mg (Please give 1st dose later today) Monitor INR very closely If develops any bleeding, please hold Coumadin and consider IVC filter with vascular Check CBC within 5 to 7 days Continue Zyvox course (Please contact ID once completes course of Zyvox if patient needs any follow up) Please hold Sinemet and Effexor while on Zyvox due to drug interaction Complete 2 days course of antibiotic with Cefdinir Continue Physical and occupational therapy Fall precaution Current Hospital Diet Patient's current hospital diet: AHA Diet (Heart Healthy), Diabetes Type 2 Diet Discharge Diet Recommended Diet: AHA Diet (Heart Healthy), Diabetes Type 2 Diet Pending Studies Studies pending at discharge: no Laboratory Results Hemoglobin A1c Test 11/24/17 05:56 Range/Units Estimated Average Glucose 146 mg/dl Hemoglobin A1c 6.7 H 4.5-5.6 % Medical Emergencies . Who to Call and When: Medical Emergencies: If at any time you feel your situation is an emergency, please call 911 immediately. . Non-Emergent Contact Non-Emergency issues call your: Primary Care Provider Call Non-Emergent contact if: temperature is above 101, you have any medication questions . . "Provider Documentation" section prepared by Cherry Keller. .
[2018-01-24] MEDS ORDERED: CEFD300C3 PO (14:58)
--- NOTE | 2018-01-24 15:03 | Discharge Summary ---
Discharge Summary Date of Service Jan 24, 2018. Discharge Summary Admission Date: Jan 19, 2018 at 13:19 Discharge Date: Jan 24, 2018 Discharge Disposition: senior care facility Principal Diagnosis: GI Bleed Acute blood loss anemia Secondary Diagnoses/Problems: H/o septic shoulder joint infection without any prior history of surgery Hx DVT Parkinson's Disease Depression Asthma HTN Dyslipidemia Consultations: ID Medication Reconciliation New Medications: Cefdinir (Cefdinir) 300 Mg Cap 300 MG PO BID for 2 Days, #4 CAP Continued Medications: Acetaminophen (Tylenol) 500 Mg Tab 500 MG PO Q4H PRN for Pain or Fever Albuterol Hfa (Ventolin Hfa) 200 Puffs/02393 Mcg Aers 2 PUFFS INH Q6H PRN for Wheezing Clopidogrel Bisulfate (Plavix) 75 Mg Tab 75 MG PO DAILY Cyanocobalamin (Vitamin B-12) 1,000 Mcg Tab 1000 MCG PO DAILY Eucerin (Eucerin) Cre 1 APPLN TOP AMHS Ferrous Sulfate (Kp Ferrous Sulfate) 325 Mg Tab 325 MG PO BID Fluticasone Prop/Salmeterol (Advair Diskus 250/50 60 Dose) 1 Ea Aerp 1 PUFF INH BID Folic Acid (Folvite) 1 Mg Tab 1 MG PO DAILY Levodopa/Carbidopa (Sinemet 25MG/100MG) 1 Ea Tab 2 TAB PO QID Hold until completing Zyvox Linezolid (Zyvox) 600 Mg Tab 600 MG PO AMHS TO TAKE FOR 4 WEEKS. STARTED 01/01/18 Melatonin (Kp Melatonin) 3 Mg Tab 1 TAB PO HS PRN for Insomnia for 30 Days, #30 TAB 2 Refills Metoprolol Tartrate (Lopressor) (Lopressor) 25 Mg Tab 25 MG PO BID Montelukast Sodium (Singulair) 10 Mg Tab 10 MG PO HS Pantoprazole (Protonix) 40 Mg Tab 40 MG PO DAILY Ropinirole Hydrochloride (Requip) 1 Mg Tab 1 MG PO HS Senna/Docusate Sod (Senokot S) 1 Tab Tab 1 TAB PO DAILY Triamcinolone Acet (Triamcinolone Acetonide) 45 Appln/15 Gm Cr 1 APPLN TOP BID PRN for rash for 30 Days, #30 GM Venlafaxine Hcl (Effexor Xr) 75 Mg Cap 75 MG PO DAILY Hold until completing Zyvox Admission Information HPI (per Admitting provider): Patient is an 82-year-old female from [facility] with a PMH of 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 Per review of records, patient had 1 rust-colored BM late last night. CBC performed this morning indicated a hemoglobin of 6.2 (down from 9 four days ago). Has been on Coumadin for DVT but INR was elevated to 6.77 on Jan 17 and coumadin has been held since. INR is 4.3 upon admission. Patient endorses fatigue and lightheadedness but denies fever, chills, headache, chest pain, shortness of breath, abdominal pain, nausea, vomiting or hematuria. No LE swelling. Was recently admitted from December 22 - due to right shoulder wound dehiscence 4 weeks s/p right septic shoulder I&D. Blood cultures most recently grew Corynebacterium and patient has been following with Dr. Chau of [place] as an outpatient. Initially treated with vanco by PICC line but transitioned to a 4 week course of PO Zyvox on January 01. Carbidopa/levodopa and Effexor have been held to avoid drug-drug interaction. Physical Exam (per Admitting): General Appearance: + mild distress Head: normocephalic, atraumatic Eyes: normal inspection, PERRL, sclerae normal ENT: normal ENT inspection, hearing grossly normal, pharynx normal (dry mucous membranes ) Neck: supple, thyroid normal, trachea midline Respiratory/Chest: chest non-tender, lungs clear, normal breath sounds, no respiratory distress, no accessory muscle use Cardiovascular: regular rate, rhythm, normal peripheral pulses Abdomen/GI: non tender, soft, no organomegaly, + fecal occult blood (per ER physician's rectal exam ) Back: normal inspection Extremities/Musculoskelatal: normal inspection, no calf tenderness, no pedal edema, + pertinent finding (No R shoulder pain or erythema noted) Neurologic/Psych: alert, oriented x 3, + pertinent finding (anxious) Skin: warm/dry, no rash, + pallor Hospital Course Patient is an 82-year-old female from [facility] with a PMH of 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 GI Bleed Acute blood loss anemia Mostly due to supra therapeutic INR Hgb on admission 6.2 from 9, 4 days prior to the admission Received IV Vit K in the ER Coumadin has been on hold since 01/17 Hgb has been stable for the last few days, (9.4 today) Received 2 units PRBC during hospital course Continue PPI oral GI on board no scope since h/h has been stable Denies any further GI bleed Case discussed with the GI team today and recommend to hold coumadin for about 7 days Will resume coumadin today at low dose Hx of DVT Coumadin has been on hold If bleeding continues to reoccur, will consider IVC eval Case discussed with daughter in detail about IVC filter Since pt GI bleed occurred due to supra therapeutic INR, will hold on on IVC filter for now I reviewed her venous doppler that was done in 11/27 before coumadin was starting Venous doppler suggested age indeterminate occlusive deep venous thrombus within the right peroneal vein. Not sure when pt had the DVT. Coumadin was adding after this imaging Will resume coumadin at a low dose today H/o septic shoulder joint infection without any prior history of surgery Right shoulder I&D, stimulon bead implantation in November (grew staph aureus) Wound dehiscence, hematoma evacuation and washout in December (grew corynebacterium) Currently following with Dr. Chau out-patient. Began PO Zyvox on January 01 for 4 week course No current leukocytosis or evidence of worsening infection Will transition to oral zyvox once discharge ID on board HTN Continue metoprolol Parkinson's Disease Carbidopa/levodopa held while on Zyvox due to drug interaction between Zyvox and anti-parkinsonian medications Resume levodopa/carbidopa once completes course of Zyvox Continue Requip Asthma Continue Advair, albuterol PRN Singulair HS HLD Continue Depression Effexor held while on Zyvox DVT Ppx: SCDs (GI bleed) Code status: FULL CODE Dispo: Admitted to telemetry. Discharge planning back to [facility]. Likely go to [facility] today Total time spent on discharge = 40 minutes This includes examination of the patient, discharge planning, medication reconciliation, and communication with other providers. Discharge Instructions Discharge Instructions Date of Service Jan 24, 2018. Admission Reason for Admission: Anemia Due To Blood Loss, Gi Bleed Discharge Discharge Diagnosis / Problem: GI bleed, Anemia of acute blood loss, History DVT Discharge Goals Goal(s): Decrease discomfort, Improve function, Improve disease control Activity Recommendations Activity Limitations: resume your previous activity (As tolerated) . Instructions / Follow-Up Instructions / Follow-Up Follow up with your primary care provider at [facility] Follow up with the Coumadin clinic Resume Coumadin 2 mg (Please give 1st dose later today) Monitor INR very closely If develops any bleeding, please hold Coumadin and consider IVC filter with vascular Check CBC within 5 to 7 days Continue Zyvox course (Please contact ID once completes course of Zyvox if patient needs any follow up) Please hold Sinemet and Effexor while on Zyvox due to drug interaction Complete 2 days course of antibiotic with Cefdinir Continue Physical and occupational therapy Fall precaution Current Hospital Diet Patient's current hospital diet: AHA Diet (Heart Healthy), Diabetes Type 2 Diet Discharge Diet Recommended Diet: AHA Diet (Heart Healthy), Diabetes Type 2 Diet Pending Studies Studies pending at discharge: no Laboratory Results Hemoglobin A1c Test 11/24/17 05:56 Range/Units Estimated Average Glucose 146 mg/dl Hemoglobin A1c 6.7 H 4.5-5.6 % Medical Emergencies . Who to Call and When: Medical Emergencies: If at any time you feel your situation is an emergency, please call 911 immediately. . Non-Emergent Contact Non-Emergency issues call your: Primary Care Provider Call Non-Emergent contact if: temperature is above 101, you have any medication questions . . "Provider Documentation" section prepared by Cherry Keller. . Additional Copies To Carmelo Perera
[2018-01-24] MEDS ORDERED: CMD2 PO (15:08)
[2018-01-24] MEDS ORDERED: LINEZOLID 600 MG TAB PO SCH (21:00)
[2018-01-24] MEDS ORDERED: CEFDINIR 300 MG CAP PO SCH (21:00)
== END 2018-01-24 15:30 | DRG 378 ==
LOC: EDBD 10:09 → C.EDB 10:10 → C.2T 13:19 → ENRESERV 13:55
PROVIDERS: ADMIT Internal Medicine; ATTEND Internal Medicine
DX: K92.2 Gastrointestinal hemorrhage, unspecified (principal); D62 Acute posthemorrhagic anemia; Z82.49 Family history of ischemic heart disease and other diseases of the circulatory system; Z87.891 Personal history of nicotine dependence; Z86.718 Personal history of other venous thrombosis and embolism; Z79.01 Long term (current) use of anticoagulants; I10 Essential (primary) hypertension; G20 Parkinson's disease; J45.909 Unspecified asthma, uncomplicated; E78.5 Hyperlipidemia, unspecified; F32.9 Major depressive disorder, single episode, unspecified; R79.1 Abnormal coagulation profile

== ENCOUNTER 2018-02-01 13:14 | Emergency (ER) | payer OTHER ==
[~2018-02-01] VITALS: Ht 154.9 cm; Wt 53.6 kg
[~2018-02-01 13:14] MED LIST changes: -ACET-24 PO; -ADVIN25/60 INH; -ATR10 PO; -CARB25TA12 PO; +CEFD300C3 PO; +CMD2 PO; -CMD3 PO; -CYAN1SUB13 PO; -EFFSR75 PO; +FERR1TAB13 PO; -FLV1 PO; -FRRS300 PO; +LINE1TAB6 PO; -LVNIS80 SQ; +MELA1TAB5 PO; -MELA3TAB PO; -METO25TA56 PO; -MONT1TAB3 PO; -PANT40TA PO; -PLV75 PO; -RQP1 PO; -SENN-91 PO; -TRMCR130WC TOP; -VANC1INJ9 IV; -VNTHFA/IN INH
[2018-02-01 13:22] VITALS: TEMP 36.5; Ht 154.9 cm; Wt 53.6 kg
[2018-02-01] MEDS ORDERED: LIDO/EPINEPHRINE/SOD BICARB 20 ML VIAL ONE (13:22)
[2018-02-01] MEDS ORDERED: SODIUM CHLORIDE 0.9% 500ML 500 ML IV STA (13:28)
--- NOTE | 2018-02-01 13:53 | DIAGNOSTIC IMAGING REPORT ---
PELVIS 1 OR 2 VIEW ROUTINE HISTORY: 82 years-old Female fall on coumadin acute pelvic pain status post fall COMPARISON: Pelvic radiograph 10/25/2017 TECHNIQUE: Portable AP view of the pelvis FINDINGS: The bones appear mildly demineralized. Calcified lower extremity arterial structures are noted. At least mild degenerative changes about the bilateral femoral acetabular joints. No acute fracture or dislocation. Advanced degenerative changes about the imaged lower lumbar spine. IMPRESSION: No acute fracture or dislocation. The above report was generated using voice recognition software. It may contain grammatical, syntax or spelling errors. Electronically signed by: Brett Dean M.D. 02/01/2018 1:52 PM Dictated Date/Time: 02/01/2018 1:50 PM
[2018-02-01 13:54] LABS: BASO % 0.4 %; BASO ABS # 0.03 K/uL (0-0.2); EOS % 8.9 %; EOS ABS # 0.66 K/uL (0-0.5); HEMATOCRIT 25.6 % (37-47); HEMOGLOBIN 8.7 g/dL (12.0-16.0); IG# 0.05 K/uL (0.00-0.02); LYMPH % 18.9 %; MEAN CELL VOLUME 93.1 fL (80-100); MEAN CORPUSCULAR HEMOGLOBIN 31.6 pg (25-34); MEAN PLATELET VOLUME 9.1 fL (7.4-10.4); MONO % 14.7 %; MONO ABS # 1.09 K/uL (0.11-0.59); NEUT % 56.4 %; NEUT ABS # 4.19 K/uL (1.4-6.5); PLATELET COUNT 197 K/uL (130-400); RED CELL DISTRIBUTION WIDTH CV 14.1 % (11.5-14.5); WHITE BLOOD COUNT 7.42 K/uL (4.8-10.8)
--- NOTE | 2018-02-01 13:55 | DIAGNOSTIC IMAGING REPORT ---
CHEST ONE VIEW PORTABLE HISTORY: 82 years-old Female fall on coumadin acute chest trauma status post fall COMPARISON: Chest radiograph 12/22/2017 TECHNIQUE: Portable AP view of the chest FINDINGS: Cardiac silhouette is mildly enlarged, unchanged. Calcification of the aorta. Linear subsegmental left basilar opacities suggest atelectasis. Improved aeration about the right lung base. There is no pneumothorax, pleural effusion or overt pulmonary edema. Superior positioning of the right humeral head compatible with chronic rotator cuff disease. Degenerative changes of the shoulders and spine. Bones appear grossly intact. IMPRESSION: No acute process. The above report was generated using voice recognition software. It may contain grammatical, syntax or spelling errors. Electronically signed by: Brett Dean M.D. 02/01/2018 1:53 PM Dictated Date/Time: 02/01/2018 1:52 PM
[2018-02-01 14:03] LABS: INR 2.2 (0.9-1.1); PTT PATIENT 33.7 SECONDS (21.0-31.0)
--- NOTE | 2018-02-01 14:08 | DIAGNOSTIC IMAGING REPORT ---
R HUMERUS MIN 2 VIEWS ROUTINE CLINICAL HISTORY: 82 years-old Female presenting with fall. TECHNIQUE: Frontal and lateral views of the right humerus were obtained. COMPARISON: 10/25/2017. FINDINGS: Severe effacement of the acromiohumeral interval with sclerosis of the acromion and humeral head. The humeral head demonstrates diffuse osteophytosis. The appearance is unchanged from prior. Acromioclavicular joint grossly congruent. The distal clavicle may be remodeled by the humeral head. Osteopenia suggested. Calcification or ossification suggested in the muscles or tendons at the lateral aspect of the proximal metadiaphysis of the humerus. Elbow joint grossly congruent. No acute fracture or malalignment. IMPRESSION: 1. No acute osseous injury allowing for osteopenia, which limits evaluation for nondisplaced fracture. 2. Advanced degenerative changes of the shoulder with evidence of chronic rotator cuff tear. Electronically signed by: Jhony Schmitz M.D. 02/01/2018 2:06 PM Dictated Date/Time: 02/01/2018 2:04 PM
--- NOTE | 2018-02-01 14:09 | DIAGNOSTIC IMAGING REPORT ---
R SHOULDER MIN 2 VIEWS ROUTINE CLINICAL HISTORY: 82 years-old Female presenting with fall. TECHNIQUE: Internal rotation, external rotation, Grashey views of the right shoulder were obtained. COMPARISON: 10/25/2017. FINDINGS: Superior subluxation of the humeral head is chronic. Complete effacement of the acromiohumeral interval with sclerosis and bony cystic change in both the acromion and humeral head. Extensive osteophytosis of the humeral head. Bony remodeling of the glenoid also suggested. The acromioclavicular joint is grossly congruent though there is bony remodeling of the distal clavicle secondary to humeral head subluxation. Ossification or calcification noted in the musculature or tendons in the lateral aspect of the proximal metadiaphysis of the humerus. This may suggest calcific tendinitis. Allowing for osteopenia, no acute fracture or acute malalignment. Visualized portion of the right hemithorax normal. IMPRESSION: 1. No acute osseous injury allowing for osteopenia, which limits evaluation for nondisplaced fracture. 2. Advanced degenerative changes of the shoulder with suspected chronic rotator cuff tear. Electronically signed by: Jhony Schmitz M.D. 02/01/2018 2:08 PM Dictated Date/Time: 02/01/2018 2:06 PM
--- NOTE | 2018-02-01 14:12 | DIAGNOSTIC IMAGING REPORT ---
HEAD WITHOUT CONTRAST (CT) CLINICAL HISTORY: 82 years-old Female presenting with fall on coumadin. TECHNIQUE: Multidetector CT imaging of the head was performed without the use of intravenous contrast. IV contrast: None. A dose lowering technique was used consistent with the principles of ALARA (as low as reasonably achievable). COMPARISON: 12/22/2017. CT DOSE (mGy.cm): The estimated cumulative dose is 894.25. 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 Proportional ventricular and sulcal prominence, likely age-related parenchymal volume loss. Periventricular and subcortical white matter hypoattenuation, nonspecific but likely indicative of chronic small vessel ischemic change. No mass effect or midline shift. No hemorrhage or acute territorial infarct. No extra-axial fluid collection. Paranasal sinuses and mastoid air cells clear. Calvarium intact. Soft tissue swelling with soft tissue emphysema consistent with laceration. Small subgaleal hematoma over the right frontotemporal scalp. No subjacent osseous injury. IMPRESSION: 1. Chronic small vessel ischemic change. No acute intracranial abnormality. 2. Scalp laceration and subjacent small subgaleal hematoma over the right frontal temporal region. No subjacent osseous injury. Electronically signed by: Jhony Schmitz M.D. 02/01/2018 2:11 PM Dictated Date/Time: 02/01/2018 2:08 PM
[2018-02-01 14:17] LABS: BLOOD UREA NITROGEN 17 mg/dl (7-18); CARBON DIOXIDE 27 mmol/L (21-32); CREATININE 0.74 mg/dl (0.60-1.20); GLUCOSE 104 mg/dl (70-99); SODIUM 139 mmol/L (136-145)
--- NOTE | 2018-02-01 14:22 | DIAGNOSTIC IMAGING REPORT ---
CERVICAL SPINE W/O CLINICAL HISTORY: 82 years-old Female presenting with fall on coumadin. TECHNIQUE: Multidetector CT of the cervical spine was performed without the use of intravenous contrast. IV contrast: None. A dose lowering technique was used consistent with the principles of ALARA (as low as reasonably achievable). COMPARISON: 10/25/2017. CT DOSE (mGy.cm): The estimated cumulative dose is 894.25. 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 Straightening of normal cervical lordosis. Osteopenia. 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 3 mm of anterolisthesis of the dens relative to the C2 body. Additionally, 5 mm of anterolisthesis of the posterior arch of C1 relative to C2. This is stable to slightly worsened from prior. Chronic fracture of the left lateral arch of C1 (series 501 image 38). 7 mm of right lateral displacement of the lateral masses of C1 relative to C2, which is stable to slightly worsened from prior. Chronic fracture of the spinous process of C1. Loss of height of the basion-dental interval is unchanged. Remaining vertebral bodies demonstrate unchanged height and alignment. Diffuse intervertebral disc height loss with varying degrees of disc osteophyte complexes at every level. Posterior bony spurring most notable in the mid to lower cervical spine. Extensive osseous fusion of facet joints in the upper cervical spine. Multilevel osseous neural foraminal narrowing with facet arthropathy. No acute fracture or acute subluxation. Skull base intact. IMPRESSION: 1. No acute fracture allowing for osteopenia. 2. Chronic fracture deformities of C1 and C2 with stable to slight interval worsening of anterolisthesis of the posterior arch of C1 relative to C2 and right lateral displacement of the lateral masses of C1 relative to C2. This is further described above. 3. Multilevel degenerative changes. Electronically signed by: Jhony Schmitz M.D. 02/01/2018 2:20 PM Dictated Date/Time: 02/01/2018 2:11 PM
--- NOTE | 2018-02-01 14:24 | DIAGNOSTIC IMAGING REPORT ---
CT OF THE ABDOMEN AND PELVIS WITHOUT CONTRAST CLINICAL HISTORY: Fall on Coumadin. COMPARISON STUDY: CT of the abdomen and pelvis June 13, 2016. TECHNIQUE: Axial images of the abdomen and pelvis were obtained without IV contrast. Images were reviewed in the axial, sagittal, and coronal planes. A dose lowering technique was utilized adhering to the principles of ALARA. FINDINGS: Visualized portions of the lower chest demonstrate a trace right pleural effusion. The heart is moderately enlarged. No hemoperitoneum or pneumoperitoneum is present. Evaluation of the solid abdominal viscera is compromised on this unenhanced exam. Unenhanced images of the liver, spleen, adrenal glands and pancreas are unremarkable. There is no biliary or pancreatic ductal dilatation. A 2.3 cm right renal lesion is suboptimally assessed on this unenhanced exam but this measures near water attenuation. This favors a cyst. There is no hydronephrosis. Note is made of extensive sigmoid diverticulosis without evidence for acute diverticulitis. A moderate amount of stool is noted within the colon. The appendix is normal. Bladder is moderately distended. No acute pelvic or lumbar spine fracture is identified. Moderate dextroscoliosis of the lumbar spine is noted with moderate to severe multilevel degenerative disc disease and facet arthrosis. No pelvic hematoma is identified. IMPRESSION: 1. No acute traumatic findings within the abdomen or pelvis on unenhanced exam. 2. Moderate distention of the bladder. 3. Colonic diverticulosis without evidence for acute diverticulitis. Moderate amount of stool within the colon. 4. No acute lumbar spine or pelvic fracture. Electronically signed by: Burton Damon M.D. 02/01/2018 2:22 PM Dictated Date/Time: 02/01/2018 2:13 PM
[2018-02-01] MEDS ORDERED: PHYTONADIONE INJ 2.5 MG in SODIUM CHLORIDE 0.9% 50ML 50 ML IV ONE (14:30)
[2018-02-01] MEDS ORDERED: WARF4TAB8 PO (14:50)
[2018-02-01 16:54] VITALS: BP 165/82; PULSE 93; O2SAT 94
--- NOTE | 2018-02-01 18:40 | EMERGENCY ROOM VISIT NOTE ---
History Report prepared by Diana: Raquel Banuelos Under the Supervision of: Dr. Mario Stewart M.D. First contact with patient: 13:17 Stated Complaint: [facility] History of Present Illness The patient is an 82 year old female who presents to the Emergency Room with complaints of an episode of a fall occurring prior to arrival. Per nursing staff the patient has a history of dementia and lives at [facility]. They state that this morning she was trying to stand up by herself out of a chair when she fell. They report that she fell forward into a dresser and created a laceration to her head. They note that she takes Coumadin. The patient complain of head pain. She states that her pain is currently a 9/10 in severity. Source of History: patient History Limited By: AMS, dementia Onset: prior to arrival Position: head Symptom Intensity: 9/10 Quality: other (fall) Timing: other (episode) Note: The patient complains of head pain. Review of Systems HPI and review of systems are limited secondary to patient's dementia. 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 Surgical Problems: (1) Hx of hysterectomy (2) Hx of tonsillectomy Family History Gallbladder disease Heart disease Hypertension Kidney disease Kidney stones Social History Smoking Status: Former Smoker Alcohol Use: none Drug Use: none Marital Status: Housing Status: assisted living Occupation Status: retired Current/Historical Medications Scheduled Clopidogrel Bisulfate (Plavix), 75 MG PO DAILY Cyanocobalamin (Vitamin B-12), 1,000 MCG PO DAILY Ferrous Sulfate (Kp Ferrous Sulfate), 325 MG PO BID Fluticasone Prop/Salmeterol (Advair Diskus 250/50 60 Dose), 1 PUFF INH BID Folic Acid (Folvite), 1 MG PO DAILY Levodopa/Carbidopa (Sinemet 25MG/100MG), 2 TAB PO QID Metoprolol Tartrate (Lopressor) (Lopressor), 25 MG PO BID Montelukast Sodium (Singulair), 10 MG PO HS Pantoprazole (Protonix), 40 MG PO DAILY Ropinirole Hydrochloride (Requip), 1 MG PO HS Senna/Docusate Sod (Senokot S), 1 TAB PO DAILY Venlafaxine Hcl (Effexor Xr), 75 MG PO DAILY Warfarin Sod (Jantoven), 4 MG PO DAILY Scheduled PRN Acetaminophen (Tylenol), 500 MG PO Q4H PRN for Pain or Fever Albuterol Hfa (Ventolin Hfa), 2 PUFFS INH Q6H PRN for Wheezing Eucerin (Eucerin), 1 APPLN TOP AMHS PRN for DRYNESS Melatonin (Kp Melatonin), 1 TAB PO HS PRN for Insomnia Triamcinolone Acet (Triamcinolone Acetonide), 1 APPLN TOP BID PRN for rash Allergies Coded Allergies: Diphenhydramine (Verified Allergy, Severe, SWELLING IN THROAT, 02/01/18) Iodine (Verified Allergy, Severe, THROAT SWELLING, 02/01/18) Shellfish (Verified Allergy, Severe, ANAPHYLAXIS AND FULL BODY HIVES, 02/01) Ciprofloxacin (Verified Allergy, Intermediate, HIVES FULL BODY, 02/01/18) Latex1 -Allergic Contact Dermititis (Verified Allergy, Intermediate, DERMATITIS, 02/01/18) Quinine (Verified Allergy, Intermediate, HIVES, 02/01/18) Triprolidine (Verified Allergy, Intermediate, HIVES, ASTHMA EXACERBATION, 02/01/18) Physical Exam Vital Signs Date Time Temp Pulse Resp B/P (MAP) Pulse Ox O2 Delivery O2 Flow Rate FiO2 02/01/18 16:54 93 18 165/82 94 02/01/18 16:14 90 16 157/72 97 Room Air 02/01/18 14:18 80 02/01/18 14:14 76 16 142/68 96 Room Air 02/01/18 13:22 36.5 78 16 103/59 97 Room Air Physical Exam Physical Exam HENT: Exam performed. Head: Normocephalic. 4 cm laceration to her right scalp. Right Ear: External ear normal. No mastoid tenderness. Left Ear: External ear normal. No mastoid tenderness. Mouth/Throat: The oropharynx is clear and moist. No trismus in the jaw. No dental abscesses or uvula swelling. No oropharyngeal exudate or tonsillar abscesses. EYES: Conjunctivae and EOM are normal. Pupils are equal, round, and reactive to light. Right eye exhibits no discharge. Left eye exhibits no discharge. No scleral icterus. NECK: No JVD present. No spinous process tenderness present. CV: Normal rate, regular rhythm, normal heart sounds and intact distal pulses. There is no peripheral edema. Palpable radial pulses bue. PULM/CHEST: Effort normal and breath sounds normal. No respiratory distress. No stridor. She has no wheezes. She has no rales. Chest Wall: She exhibits no tenderness. No crepitus. ABD: The abdomen is soft. Bowel sounds are normal. She has no distension. No mass is present. There is no tenderness. There is no rebound, no guarding, no Valencia's sign and no tenderness at McBurney's point. Rovsig negative MUSC/SKEL: Normal range of motion. There is no peripheral edema, tenderness or deformity. Pelvis stable. No CT or L-spine tenderness. NEURO: She is alert not oriented to person place or time. GCS E: 4, V: 4, M: 6 Medical Decision & Procedures ER Provider Diagnostic Interpretation: Radiology results as stated below per my review and radiologist interpretation: PELVIS 1 OR 2 VIEW ROUTINE HISTORY: 82 years-old Female fall on coumadin acute pelvic pain status post fall COMPARISON: Pelvic radiograph 10/25/2017 TECHNIQUE: Portable AP view of the pelvis FINDINGS: The bones appear mildly demineralized. Calcified lower extremity arterial structures are noted. At least mild degenerative changes about the bilateral femoral acetabular joints. No acute fracture or dislocation. Advanced degenerative changes about the imaged lower lumbar spine. IMPRESSION: No acute fracture or dislocation. The above report was generated using voice recognition software. It may contain grammatical, syntax or spelling errors. Electronically signed by: Brett Dean M.D. 02/01/2018 1:52 PM Dictated Date/Time: 02/01/2018 1:50 PM HEAD WITHOUT CONTRAST (CT) CLINICAL HISTORY: 82 years-old Female presenting with fall on coumadin. TECHNIQUE: Multidetector CT imaging of the head was performed without the use of intravenous contrast. IV contrast: None. A dose lowering technique was used consistent with the principles of ALARA (as low as reasonably achievable). COMPARISON: 12/22/2017. CT DOSE (mGy.cm): The estimated cumulative dose is 894.25. FINDINGS: [employer] topogram: Skin lisa noted projecting over the skull. Proportional ventricular and sulcal prominence, likely age-related parenchymal volume loss. Periventricular and subcortical white matter hypoattenuation, nonspecific but likely indicative of chronic small vessel ischemic change. No mass effect or midline shift. No hemorrhage or acute territorial infarct. No extra-axial fluid collection. Paranasal sinuses and mastoid air cells clear. Calvarium intact. Soft tissue swelling with soft tissue emphysema consistent with laceration. Small subgaleal hematoma over the right frontotemporal scalp. No subjacent osseous injury. IMPRESSION: 1. Chronic small vessel ischemic change. No acute intracranial abnormality. 2. Scalp laceration and subjacent small subgaleal hematoma over the right frontal temporal region. No subjacent osseous injury. Electronically signed by: Jhony Schmitz M.D. 02/01/2018 2:11 PM Dictated Date/Time: 02/01/2018 2:08 PM CHEST ONE VIEW PORTABLE HISTORY: 82 years-old Female fall on coumadin acute chest trauma status post fall COMPARISON: Chest radiograph 12/22/2017 TECHNIQUE: Portable AP view of the chest FINDINGS: Cardiac silhouette is mildly enlarged, unchanged. Calcification of the aorta. Linear subsegmental left basilar opacities suggest atelectasis. Improved aeration about the right lung base. There is no pneumothorax, pleural effusion or overt pulmonary edema. Superior positioning of the right humeral head compatible with chronic rotator cuff disease. Degenerative changes of the shoulders and spine. Bones appear grossly intact. IMPRESSION: No acute process. The above report was generated using voice recognition software. It may contain grammatical, syntax or spelling errors. Electronically signed by: Brett Dean M.D. 02/01/2018 1:53 PM Dictated Date/Time: 02/01/2018 1:52 PM CERVICAL SPINE W/O CLINICAL HISTORY: 82 years-old Female presenting with fall on coumadin. TECHNIQUE: Multidetector CT of the cervical spine was performed without the use of intravenous contrast. IV contrast: None. A dose lowering technique was used consistent with the principles of ALARA (as low as reasonably achievable). COMPARISON: 10/25/2017. CT DOSE (mGy.cm): The estimated cumulative dose is 894.25. FINDINGS: [employer] topogram: Skin lisa noted over the skull. Straightening of normal cervical lordosis. Osteopenia. 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 3 mm of anterolisthesis of the dens relative to the C2 body. Additionally, 5 mm of anterolisthesis of the posterior arch of C1 relative to C2. This is stable to slightly worsened from prior. Chronic fracture of the left lateral arch of C1 (series 501 image 38). 7 mm of right lateral displacement of the lateral masses of C1 relative to C2, which is stable to slightly worsened from prior. Chronic fracture of the spinous process of C1. Loss of height of the basion-dental interval is unchanged. Remaining vertebral bodies demonstrate unchanged height and alignment. Diffuse intervertebral disc height loss with varying degrees of disc osteophyte complexes at every level. Posterior bony spurring most notable in the mid to lower cervical spine. Extensive osseous fusion of facet joints in the upper cervical spine. Multilevel osseous neural foraminal narrowing with facet arthropathy. No acute fracture or acute subluxation. Skull base intact. IMPRESSION: 1. No acute fracture allowing for osteopenia. 2. Chronic fracture deformities of C1 and C2 with stable to slight interval worsening of anterolisthesis of the posterior arch of C1 relative to C2 and right lateral displacement of the lateral masses of C1 relative to C2. This is further described above. 3. Multilevel degenerative changes. Electronically signed by: Jhony Schmitz M.D. 02/01/2018 2:20 PM Dictated Date/Time: 02/01/2018 2:[address] OF THE ABDOMEN AND PELVIS WITHOUT CONTRAST CLINICAL HISTORY: Fall on Coumadin. COMPARISON STUDY: CT of the abdomen and pelvis June 13, 2016. TECHNIQUE: Axial images of the abdomen and pelvis were obtained without IV contrast. Images were reviewed in the axial, sagittal, and coronal planes. A dose lowering technique was utilized adhering to the principles of ALARA. FINDINGS: Visualized portions of the lower chest demonstrate a trace right pleural effusion. The heart is moderately enlarged. No hemoperitoneum or pneumoperitoneum is present. Evaluation of the solid abdominal viscera is compromised on this unenhanced exam. Unenhanced images of the liver, spleen, adrenal glands and pancreas are unremarkable. There is no biliary or pancreatic ductal dilatation. A 2.3 cm right renal lesion is suboptimally assessed on this unenhanced exam but this measures near water attenuation. This favors a cyst. There is no hydronephrosis. Note is made of extensive sigmoid diverticulosis without evidence for acute diverticulitis. A moderate amount of stool is noted within the colon. The appendix is normal. Bladder is moderately distended. No acute pelvic or lumbar spine fracture is identified. Moderate dextroscoliosis of the lumbar spine is noted with moderate to severe multilevel degenerative disc disease and facet arthrosis. No pelvic hematoma is identified. IMPRESSION: 1. No acute traumatic findings within the abdomen or pelvis on unenhanced exam. 2. Moderate distention of the bladder. 3. Colonic diverticulosis without evidence for acute diverticulitis. Moderate amount of stool within the colon. 4. No acute lumbar spine or pelvic fracture. Electronically signed by: Bruton Damon M.D. 02/01/2018 2:22 PM Dictated Date/Time: 02/01/2018 2:13 PM R SHOULDER MIN 2 VIEWS ROUTINE CLINICAL HISTORY: 82 years-old Female presenting with fall. TECHNIQUE: Internal rotation, external rotation, Grashey views of the right shoulder were obtained. COMPARISON: 10/25/2017. FINDINGS: Superior subluxation of the humeral head is chronic. Complete effacement of the acromiohumeral interval with sclerosis and bony cystic change in both the acromion and humeral head. Extensive osteophytosis of the humeral head. Bony remodeling of the glenoid also suggested. The acromioclavicular joint is grossly congruent though there is bony remodeling of the distal clavicle secondary to humeral head subluxation. Ossification or calcification noted in the musculature or tendons in the lateral aspect of the proximal metadiaphysis of the humerus. This may suggest calcific tendinitis. Allowing for osteopenia, no acute fracture or acute malalignment. Visualized portion of the right hemithorax normal. IMPRESSION: 1. No acute osseous injury allowing for osteopenia, which limits evaluation for nondisplaced fracture. 2. Advanced degenerative changes of the shoulder with suspected chronic rotator cuff tear. Electronically signed by: Jhony Schmitz M.D. 02/01/2018 2:08 PM Dictated Date/Time: 02/01/2018 2:06 PM R HUMERUS MIN 2 VIEWS ROUTINE CLINICAL HISTORY: 82 years-old Female presenting with fall. TECHNIQUE: Frontal and lateral views of the right humerus were obtained. COMPARISON: 10/25/2017. FINDINGS: Severe effacement of the acromiohumeral interval with sclerosis of the acromion and humeral head. The humeral head demonstrates diffuse osteophytosis. The appearance is unchanged from prior. Acromioclavicular joint grossly congruent. The distal clavicle may be remodeled by the humeral head. Osteopenia suggested. Calcification or ossification suggested in the muscles or tendons at the lateral aspect of the proximal metadiaphysis of the humerus. Elbow joint grossly congruent. No acute fracture or malalignment. IMPRESSION: 1. No acute osseous injury allowing for osteopenia, which limits evaluation for nondisplaced fracture. 2. Advanced degenerative changes of the shoulder with evidence of chronic rotator cuff tear. Electronically signed by: Jhony Schmitz M.D. 02/01/2018 2:06 PM Dictated Date/Time: 02/01/2018 2:04 PM Laboratory Results 02/01/18 13:40 Red Blood Count 2.75, Mean Corpuscular Volume 93.1, Mean Corpuscular Hemoglobin 31.6, Mean Corpuscular Hemoglobin Concent 34.0, Mean Platelet Volume 9.1, Neutrophils (%) (Auto) 56.4, Lymphocytes (%) (Auto) 18.9, Monocytes (%) (Auto) 14.7, Eosinophils (%) (Auto) 8.9, Basophils (%) (Auto) 0.4, Neutrophils # (Auto ) 4.19, Lymphocytes # (Auto) 1.40, Monocytes # (Auto) 1.09, Eosinophils # (Auto ) 0.66, Basophils # (Auto) 0.03 02/01/18 13:40 Test 02/01/18 13:40 White Blood Count 7.42 K/uL (4.8-10.8) Red Blood Count 2.75 M/uL (4.2-5.4) Hemoglobin 8.7 g/dL (12.0-16.0) Hematocrit 25.6 % (37-47) Mean Corpuscular Volume 93.1 fL (80-100) Mean Corpuscular Hemoglobin 31.6 pg (25-34) Mean Corpuscular Hemoglobin Concent 34.0 g/dl (32-36) Platelet Count 197 K/uL (130-400) Mean Platelet Volume 9.1 fL (7.4-10.4) Neutrophils (%) (Auto) 56.4 % Lymphocytes (%) (Auto) 18.9 % Monocytes (%) (Auto) 14.7 % Eosinophils (%) (Auto) 8.9 % Basophils (%) (Auto) 0.4 % Neutrophils # (Auto) 4.19 K/uL (1.4-6.5) Lymphocytes # (Auto) 1.40 K/uL (1.2-3.4) Monocytes # (Auto) 1.09 K/uL (0.11-0.59) Eosinophils # (Auto) 0.66 K/uL (0-0.5) Basophils # (Auto) 0.03 K/uL (0-0.2) RDW Standard Deviation 48.0 fL (36.4-46.3) RDW Coefficient of Variation 14.1 % (11.5-14.5) Immature Granulocyte % (Auto) 0.7 % Immature Granulocyte # (Auto) 0.05 K/uL (0.00-0.02) Red Blood Cell Morphology Unremarkable Prothrombin Time 22.9 SECONDS (9.0-12.0) Prothromb Time International Ratio 2.2 (0.9-1.1) Activated Partial Thromboplast Time 33.7 SECONDS (21.0-31.0) Partial Thromboplastin Ratio 1.3 Anion Gap 8.0 mmol/L (3-11) Est Creatinine Clear Calc Drug Dose 44.2 ml/min Estimated GFR () 87.4 Estimated GFR (Non- 75.4 BUN/Creatinine Ratio 22.9 (10-20) Calcium Level 9.0 mg/dl (8.5-10.1) Troponin I < 0.015 ng/ml (0-0.045) Laboratory results reviewed by me Medications Administered Medications (Trade) Dose Ordered Sig/Joceline Route Start Time Stop Time Status Last Admin Dose Admin Sodium Chloride 500 ml @ 999 mls/hr Q31M STAT IV 02/01/18 13:28 02/01/18 13:58 DC 02/01/18 14:24 999 MLS/HR Phytonadione 2.5 mg/Sodium Chloride 50.25 ml @ 101 mls/hr ONE ONCE IV 02/01/18 14:30 02/01/18 14:59 DC 02/01/18 14:36 101 MLS/HR Procedure FAST Exam: Bedside FAST exam performed with ultrasound. Views were obtained in the hepatorenal subxyphoid splenorenal and suprapubic windows. No free fluid in the abdomen. No pericardial tamponade. Laceration Repair Location: Scalp Total length: 4 cm Complexity: Simple Verbal consent was obtained after the risks and benefits were explained, including but not limited to bleeding, scarring, infection, pain, and bone/ nerve damage. At this time, the risks of the procedure are less than the risks of NOT performing the procedure. A time out was taken and the correct patient and site identified. The scalp was prepped with betadine. The target area was anesthetized with 4 ml of 1% lidocaine without epinephrine. Copious irrigation was performed using saline. The skin was re-prepped with betadine, the hair cleared from the wound, and a sterile field set. The wound was explored for foreign bodies and none found. Debridement was not performed. The wound edges were approximated using 3 surgical lisa in the standard fashion. Hemostasis and excellent approximation was achieved. Antibacterial ointment and a sterile dressing applied. Detailed wound care instructions and signs and symptoms of infection reviewed with the []. No complications and the patient tolerated the procedure well. ECG Per My Interpretation Indication: altered mental status Rate (beats per minute): 71 Rhythm: sinus rhythm Findings: T-wave inversion (leads V3-V6 and lead 3), other (NJ, QRS, and QT-c are within normal limits, no ST elevations or ST depressions, left ventricular hypertrophy) ED Course 1318: The patient was evaluated in room B10. A complete history and physical exam was performed. ATLS protocols were initiated. Patient was placed in a collar. Large Bore IV access was obtained. IV fluids were initiated. Hemostasis was achieved by placing 3 lisa in her head laceration. Will obtain a portable chest and pelvic x-ray before sending to CT. The came to bedside and notes a history of the patient breaking her neck. Bedside fast exam was negative. 1322: Ordered Lidocaine/Epinephrine 4 ml INJ. 1328: Ordered NSS 500 ml @ 999 mls/hr IV. Portable x-rays show no acute fractures. 1430: Labs show hemoglobin of 8.7. INR 2.2. CT of the head showed no acute intracranial bleeding or skull fracture. CT of the abdomen showed no acute traumatic injury. CT of the head did show a scalp hematoma. Hemostasis was achieved by stapling the scalp, however given the patient's elevated INR and potential for continued or delayed bleeding vitamin K will be given. Phytonadione 2.5 mg/Sodium Chloride 50.25 ml @ 101 mls/hr Protocol. 1555: CT of the cervical spine showed chronic fracture of C1-C2 with stable to slight interval worsening and anterolisthesis of the posterior arch of C1 relative to C2 with right lateral displacement of the lateral masses of C1 relative to C2. I discussed the patient's case with [facility] at this time. They state that the CT C Spine findings are chronic and do not require acute intervention. Patient's C-spine was cleared. [facility]. I discussed the findings and plan with the family members at bedside and he agrees. It will be planned to hold the patient's Coumadin for next 24-48 hours at the [facility] given her acute fall. DISCHARGE - Plan of care discussed with family and questions answered. The family was given both verbal and printed discharge instructions. The family verbalized understanding and ability to comply. The family is to seek outpatient follow up as noted in the discharge instructions. The family verbalized understanding and ability to comply. The family is discharged in stable condition. The family was instructed to return for worsening symptoms. Medical Decision 1318: The patient was evaluated in room B10. A complete history and physical exam was performed. ATLS protocols were initiated. Patient was placed in a collar. Large Bore IV access was obtained. IV fluids were initiated. Hemostasis was achieved by placing 3 lisa in her head laceration. Will obtain a portable chest and pelvic x-ray before sending to CT. The came to bedside and notes a history of the patient breaking her neck. Bedside fast exam was negative. 1322: Ordered Lidocaine/Epinephrine 4 ml INJ. 1328: Ordered NSS 500 ml @ 999 mls/hr IV. Portable x-rays show no acute fractures. 1430: Labs show hemoglobin of 8.7. INR 2.2. CT of the head showed no acute intracranial bleeding or skull fracture. CT of the abdomen showed no acute traumatic injury. CT of the head did show a scalp hematoma. Hemostasis was achieved by stapling the scalp, however given the patient's elevated INR and potential for continued or delayed bleeding vitamin K will be given. Phytonadione 2.5 mg/Sodium Chloride 50.25 ml @ 101 mls/hr Protocol. 1555: CT of the cervical spine showed chronic fracture of C1-C2 with stable to slight interval worsening and anterolisthesis of the posterior arch of C1 relative to C2 with right lateral displacement of the lateral masses of C1 relative to C2. I discussed the patient's case with [facility] at this time. They state that the CT C Spine findings are chronic and do not require acute intervention. Patient's C-spine was cleared. Patient [facility] be [facility]. I discussed the findings and plan with the family members at bedside and he agrees. It will be planned to hold the patient's Coumadin for next 24-48 hours at the [facility] given her acute fall. DISCHARGE - Plan of care discussed with family and questions answered. The family was given both verbal and printed discharge instructions. The family verbalized understanding and ability to comply. The family is to seek outpatient follow up as noted in the discharge instructions. The family verbalized understanding and ability to comply. The family is discharged in stable condition. The family was instructed to return for worsening symptoms. Head Trauma GCS Score: 14 (E: 4 V: 4 M: 6) Medication Reconcilliation Current Medication List: was personally reviewed by me Blood Pressure Screening Patient's blood pressure: Elevated blood pressure Blood pressure disposition: Elevated BP felt to be situational Consults Time Called: [phone] Consulting Physician: [facility] Returned Call: [phone] I discussed the patient's case with [facility] at this time. They state that the CT C Spine findings are chronic and do not require acute intervention. Impression Primary Impression: Fall Additional Impressions: Scalp laceration Closed head injury Critical Care I have personally spent greater than 49 minutes of critical care time in the direct management of this patient. This includes bedside care, interpretation of diagnostic studies, and testing, discussion with consultants, patient, and family members, and other required patient management activities. This 49 minutes is in excess of all separately billable procedures. Scribe Attestation The scribe's documentation has been prepared under my direction and personally reviewed by me in its entirety. I confirm that the note above accurately reflects all work, treatment, procedures, and medical decision making performed by me. Departure Information Dispostion Home / Self-Care Referrals Mariela Alfonso D.O. (PCP) Forms HOME CARE DOCUMENTATION FORM, IMPORTANT VISIT INFORMATION Additional Instructions Hold Coumadin for 48 hours. Problem Qualifiers Primary Impression: Fall Encounter type: initial encounter Qualified Codes: W19.XXXA - Unspecified fall, initial encounter Additional Impressions: Scalp laceration Encounter type: initial encounter Qualified Codes: S01.01XA - Laceration without foreign body of scalp, initial encounter Closed head injury Encounter type: initial encounter Qualified Codes: S09.90XA - Unspecified injury of head, initial encounter
[2018-02-04] MEDS ORDERED: ACET-1256 PO (11:21)
[2018-02-04] MEDS ORDERED: VENL75CA88 PO (11:21)
[2018-02-04] MEDS ORDERED: FOLI1TAB8 PO (11:21)
[2018-02-04] MEDS ORDERED: ROPI1TAB PO (11:21)
[2018-02-04] MEDS ORDERED: VNTHFA/IN INH (11:21)
[2018-02-04] MEDS ORDERED: SNM/25100 PO (11:21)
[2018-02-04] MEDS ORDERED: METO25TA56 PO (11:21)
[2018-02-04] MEDS ORDERED: CYAN10005 PO (11:21)
[2018-02-04] MEDS ORDERED: SKINCRE34 TOP (11:21)
[2018-02-04] MEDS ORDERED: SENN-65 PO (11:21)
[2018-02-04] MEDS ORDERED: PANT40TA PO (11:21)
[2018-02-04] MEDS ORDERED: CLOP1TAB54 PO (11:21)
[2018-02-04] MEDS ORDERED: ADVIN25/60 INH (11:21)
[2018-02-04] MEDS ORDERED: MONT1TAB3 PO (11:21)
[2018-02-05] MEDS ORDERED: VENL37.593 PO (15:56)
== END 2018-02-01 16:54 | disposition home or self-care (01) ==
LOC: EDBD 13:14 → C.EDB 13:15
DX: S01.01XA Laceration without foreign body of scalp, initial encounter (principal); S09.90XA Unspecified injury of head, initial encounter; W19.XXXA Unspecified fall, initial encounter; F41.9 Anxiety disorder, unspecified; J45.909 Unspecified asthma, uncomplicated; F32.9 Major depressive disorder, single episode, unspecified; E11.9 Type 2 diabetes mellitus without complications; K21.9 Gastro-esophageal reflux disease without esophagitis; E78.5 Hyperlipidemia, unspecified; I10 Essential (primary) hypertension; G20 Parkinson's disease; Z87.891 Personal history of nicotine dependence; Z79.01 Long term (current) use of anticoagulants; Z51.81 Encounter for therapeutic drug level monitoring; Z79.899 Other long term (current) drug therapy; Z88.8 Allergy status to other drugs, medicaments and biological substances; Z91.041 Radiographic dye allergy status; Z91.013 Allergy to seafood; Z91.040 Latex allergy status

== ENCOUNTER 2018-02-01 21:34 | Emergency (ER) | payer OTHER ==
[~2018-02-01 21:34] MED LIST changes: +WARF4TAB8 PO
[2018-02-01 21:57] VITALS: TEMP 36.8
[2018-02-01] MEDS ORDERED: SODIUM CHLORIDE 0.9% 500ML 500 ML IV STA (22:10)
[2018-02-01 22:13] VITALS: O2SAT 99
--- NOTE | 2018-02-01 22:32 | EMERGENCY ROOM VISIT NOTE ---
History Report prepared by Diana: Brandi Connelly Under the Supervision of: Dr. Jaxson Pizano M.D. First contact with patient: 22:03 Chief Complaint: FALL Stated Complaint: FALL History of Present Illness The patient is an 82 year old white female with a past medical history of Parkinson's, asthma, HTN, and diabetes who presents to the ED with a cc of an episode of a fall [employer]. History limited secondary to patient's AMS. Nursing staff states patient had an unwitnessed fall this afternoon, and was unresponsive following the event. The patient was in the ED earlier today for a fall and had lisa placed for a head laceration. Source of History: nursing staff Onset: [employer] Quality: other (fall) Timing: other (episode) Review of Systems ROS limited secondary to patient's AMS. 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 Surgical Problems: (1) Hx of hysterectomy (2) Hx of tonsillectomy Family History Gallbladder disease Heart disease Hypertension Kidney disease Kidney stones Social History Smoking Status: Unknown if Ever Smoked Alcohol Use: none Drug Use: none Marital Status: Housing Status: assisted living Occupation Status: retired Current/Historical Medications Scheduled Clopidogrel Bisulfate (Plavix), 75 MG PO DAILY Cyanocobalamin (Vitamin B-12), 1,000 MCG PO DAILY Ferrous Sulfate (Kp Ferrous Sulfate), 325 MG PO BID Fluticasone Prop/Salmeterol (Advair Diskus 250/50 60 Dose), 1 PUFF INH BID Folic Acid (Folvite), 1 MG PO DAILY Levodopa/Carbidopa (Sinemet 25MG/100MG), 2 TAB PO QID Metoprolol Tartrate (Lopressor) (Lopressor), 25 MG PO BID Montelukast Sodium (Singulair), 10 MG PO HS Pantoprazole (Protonix), 40 MG PO DAILY Ropinirole Hydrochloride (Requip), 1 MG PO HS Senna/Docusate Sod (Senokot S), 1 TAB PO DAILY Venlafaxine Hcl (Effexor Xr), 75 MG PO DAILY Warfarin Sod (Jantoven), 4 MG PO DAILY Scheduled PRN Acetaminophen (Tylenol), 500 MG PO Q4H PRN for Pain or Fever Albuterol Hfa (Ventolin Hfa), 2 PUFFS INH Q6H PRN for Wheezing Eucerin (Eucerin), 1 APPLN TOP AMHS PRN for DRYNESS Melatonin (Kp Melatonin), 3 MG PO HS PRN for Insomnia Triamcinolone Acet (Triamcinolone Acetonide), 1 APPLN TOP BID PRN for rash Allergies Coded Allergies: Diphenhydramine (Verified Allergy, Severe, SWELLING IN THROAT, 02/01/18) Iodine (Verified Allergy, Severe, THROAT SWELLING, 02/01/18) Shellfish (Verified Allergy, Severe, ANAPHYLAXIS AND FULL BODY HIVES, 02/01) Ciprofloxacin (Verified Allergy, Intermediate, HIVES FULL BODY, 02/01/18) Latex1 -Allergic Contact Dermititis (Verified Allergy, Intermediate, DERMATITIS, 02/01/18) Quinine (Verified Allergy, Intermediate, HIVES, 02/01/18) Triprolidine (Verified Allergy, Intermediate, HIVES, ASTHMA EXACERBATION, 02/01/18) Physical Exam Vital Signs Date Time Temp Pulse Resp B/P (MAP) Pulse Ox O2 Delivery O2 Flow Rate FiO2 02/02/18 09:24 106 18 134/62 100 02/02/18 07:51 103 18 134/70 100 Room Air 02/02/18 06:46 74 18 171/92 94 Room Air 02/02/18 06:21 94 18 159/78 100 Room Air 02/02/18 05:30 79 16 147/102 100 02/02/18 05:04 92 02/02/18 05:01 160/83 02/02/18 05:00 90 17 99 02/02/18 04:40 89 16 160/83 100 Room Air 02/02/18 03:44 88 16 142/99 99 Room Air 02/02/18 03:06 72 18 100 Room Air 02/02/18 02:15 90 18 128/72 100 Room Air 02/02/18 01:20 75 19 137/61 100 Room Air 02/02/18 01:04 88 02/02/18 00:32 87 18 134/63 98 Room Air 02/02/18 00:20 80 16 129/58 93 Room Air 02/01/18 23:27 84 18 106/80 02/01/18 23:12 85 16 106/80 02/01/18 22:13 99 Room Air 02/01/18 21:58 84 02/01/18 21:57 36.8 83 103/49 100 Room Air Physical Exam GENERAL: Awake, well-appearing, NAD HENT: Normocephalic, atraumatic. 3 lisa in R parietal area. EYES: Normal conjunctiva. Sclera non-icteric. PERRL. No anisocoria. NECK: Supple. No nuchal rigidity. FROM. RESPIRATORY: CTAB, no rhonchi, wheezing, crackles CARDIAC: RRR, no MRG ABDOMEN: Soft, NTND, BS+ MSK: No chest wall TTP, no LE edema NEURO: ANO x0, repetitive speech, intermittently follows commands, GCS 13, moves all 4s to pain. SKIN: No rash or jaundice noted. Medical Decision & Procedures ER Provider Diagnostic Interpretation: Radiology results as stated below per my review and radiologist interpretation: CT HEAD WITHOUT CONTRAST (CT) CLINICAL HISTORY: Weakness HEAD TRAUMA COMPARISON STUDY: February 01, 2018 TECHNIQUE: Axial CT of the brain is performed from the vertex to the skull base. IV contrast was not administered for this examination. A dose lowering technique was utilized adhering to the principles of ALARA. CT DOSE: 638.56 mGycm FINDINGS: No intra or extra-axial mass lesions are visualized. There is no CT evidence of acute cortical infarction. There is no evidence of midline shift. There is no acute hemorrhage. No calvarial fractures are visualized. There are moderate white matter hypodensities likely on a small vessel basis. There is no evidence of pathologic ventricular dilatation. There is no evidence of acute sinusitis. There is a right parietal scalp laceration with a decreasing right scalp hematoma. IMPRESSION: No acute intracranial findings Electronically signed by: Shawn Engel M.D. 02/01/2018 11:08 PM Dictated Date/Time: 02/01/2018 11:05 PM CHEST ONE VIEW PORTABLE CLINICAL HISTORY: Weakness. Fall. COMPARISON STUDY: Chest radiograph February 01, 2018 1:37 PM. FINDINGS: Mild bibasilar opacities favor atelectasis. There is no consolidation to suggest pneumonia. There is no evidence for pulmonary edema. Mild cardiomegaly is noted. 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 IMPRESSION: 1. No acute cardiopulmonary findings. 2. Bibasilar opacities suggestive of atelectasis. Electronically signed by: Burton Damon M.D. 02/02/2018 6:56 AM Laboratory Results 02/01/18 22:36 Red Blood Count 2.56, Mean Corpuscular Volume 93.0, Mean Corpuscular Hemoglobin 31.3, Mean Corpuscular Hemoglobin Concent 33.6, Mean Platelet Volume 9.4, Neutrophils (%) (Auto) 76.5, Lymphocytes (%) (Auto) 8.5, Monocytes (%) (Auto) 10.1, Eosinophils (%) (Auto) 4.0, Basophils (%) (Auto) 0.2, Neutrophils # (Auto ) 9.91, Lymphocytes # (Auto) 1.10, Monocytes # (Auto) 1.31, Eosinophils # (Auto ) 0.52, Basophils # (Auto) 0.03 02/01/18 22:36 Test 02/01/18 22:36 White Blood Count 12.96 K/uL (4.8-10.8) Red Blood Count 2.56 M/uL (4.2-5.4) Hemoglobin 8.0 g/dL (12.0-16.0) Hematocrit 23.8 % (37-47) Mean Corpuscular Volume 93.0 fL (80-100) Mean Corpuscular Hemoglobin 31.3 pg (25-34) Mean Corpuscular Hemoglobin Concent 33.6 g/dl (32-36) Platelet Count 177 K/uL (130-400) Mean Platelet Volume 9.4 fL (7.4-10.4) Neutrophils (%) (Auto) 76.5 % Lymphocytes (%) (Auto) 8.5 % Monocytes (%) (Auto) 10.1 % Eosinophils (%) (Auto) 4.0 % Basophils (%) (Auto) 0.2 % Neutrophils # (Auto) 9.91 K/uL (1.4-6.5) Lymphocytes # (Auto) 1.10 K/uL (1.2-3.4) Monocytes # (Auto) 1.31 K/uL (0.11-0.59) Eosinophils # (Auto) 0.52 K/uL (0-0.5) Basophils # (Auto) 0.03 K/uL (0-0.2) RDW Standard Deviation 47.7 fL (36.4-46.3) RDW Coefficient of Variation 14.0 % (11.5-14.5) Immature Granulocyte % (Auto) 0.7 % Immature Granulocyte # (Auto) 0.09 K/uL (0.00-0.02) Nucleated RBC Absolute Count (auto) 0.02 K/uL (0-0) Nucleated Red Blood Cells % 0.2 % Red Blood Cell Morphology Unremarkable Prothrombin Time 14.9 SECONDS (9.0-12.0) Prothromb Time International Ratio 1.4 (0.9-1.1) Activated Partial Thromboplast Time 27.2 SECONDS (21.0-31.0) Partial Thromboplastin Ratio 1.0 Venous Blood pH 7.36 (7.36-7.41) Venous Blood Partial Pressure CO2 48 mmHg (38.0-50.0) Venous Blood Partial Pressure O2 29 mmHg Venous Blood HCO3 26 mmol/L Venous Blood Oxygen Saturation < 60.0 % Venous Blood Base Excess 0.7 mEq/L Anion Gap 9.0 mmol/L (3-11) Estimated GFR () 80.8 Estimated GFR (Non- 69.7 BUN/Creatinine Ratio 19.6 (10-20) Calcium Level 8.2 mg/dl (8.5-10.1) Total Bilirubin 0.3 mg/dl (0.2-1) Direct Bilirubin 0.1 mg/dl (0-0.2) Aspartate Amino Transf (AST/SGOT) 25 U/L (15-37) Alanine Aminotransferase (ALT/SGPT) 9 U/L (12-78) Alkaline Phosphatase 85 U/L (45-117) Troponin I < 0.015 ng/ml (0-0.045) Pro-B-Type Natriuretic Peptide 5976 pg/ml (0-1800) Total Protein 6.6 gm/dl (6.4-8.2) Albumin 3.2 gm/dl (3.4-5.0) Thyroid Stimulating Hormone (TSH) 3.340 uIu/ml (0.300-4.500) Laboratory results reviewed by me ECG Per My Interpretation Indication: altered mental status Rate (beats per minute): 84 Rhythm: normal sinus Findings: T-wave inversion (anterior, lateral, inferior), left axis deviation, other (normal intervals.) Comparison ECG Date: 07/27/16 Change: When compared to 07/27/16: T-wave inversion in V2 appears new, all other T-wave inversions are old ED Course 2204: The patient was evaluated in room B11B. A complete history and physical exam was performed. 8: I discussed the patient's case with her family at bedside. 7: I reevaluated the patient. Discussed results and discharge instructions: she and her family verbalized understanding and agreement. The patient is ready for discharge. Medical Decision Nursing notes reviewed. Ancillary studies and prior records reviewed. The patient is an 82 year old white female with a past medical history of Parkinson's, asthma, HTN, and diabetes who presents to the ED with a cc of an episode of a fall [employer]. Differential diagnosis: Etiologies such as metabolic, infection, hypoglycemia, electrolyte abnormalities , cardiac sources, intracerebral event, toxicologic, neurologic, as well as others were entertained. Patient was seen and evaluated the bedside. The patient has a recent precipitous decline per the family that presented later. Initially there was a concern for a brief episode of unresponsiveness however the patient never needed any CPR or advanced airway. The patient does have a history of dementia and is fairly repetitive on exam. Patient does not have any gross focal neurologic deficits although is somewhat difficult to ascertain given the patient's history of dementia. Patient did have a fall earlier in the day with the patient did have a fairly extensive workup and a CT the brain was negative and a recent lack repair. There are no other overt signs of trauma. I did obtain a screening chest film and a right knee film given that there was an abrasion. Patient also did have a repeat CT scan along with other blood work and EKG. Patient's blood work is fairly unchanged compared to prior. Patient's repeat CT scan is unremarkable. Upon reassessment the patient is more coherent. Unsure as to what may have caused his recent brief episode of unresponsiveness. Patient does not have any prior history of seizures and I would not start him on any antiepileptics at this time. Given the patient's negative CT scan unlikely to be a chronic subdural type bleed as she has had 2 scans today. I did discuss this with the family at bedside. Patient was deemed suitable to go back to her care facility as she will have care continually. Patient was given strict follow-up, discharge, and return precautions. All questions were answered. Patient was deemed suitable for outpatient follow-up at this time. Patient agreed with the plan of care and was safely discharged home. Medication Reconcilliation Current Medication List: was personally reviewed by me Blood Pressure Screening Patient's blood pressure: Normal blood pressure Blood pressure disposition: Did not require urgent referral Impression Primary Impression: Fall Additional Impressions: Unresponsive episode Anemia Scribe Attestation The scribe's documentation has been prepared under my direction and personally reviewed by me in its entirety. I confirm that the note above accurately reflects all work, treatment, procedures, and medical decision making performed by me. Departure Information Dispostion Home / Self-Care Referrals Mariela Alfonso D.O. (PCP) Forms HOME CARE DOCUMENTATION FORM, IMPORTANT VISIT INFORMATION Patient Instructions ED Mechanical Fall, ED Prevention Fall, [facility] Additional Instructions Please return to the emergency department if you have worsening or recurrent symptoms not amenable to at-home treatment. Please call for a follow-up appointment with her primary care physician. Please take your medications as prescribed. If you have other concerns and/or complaints please feel free to also call your primary care physician's office or return the ED for further evaluation, management, and treatment. You may take tylenol 650 mg every 6 hours as needed for pain/fever unless told by your physician to not take it or have liver problems. Take your medications as prescribed. You have been examined and treated today on an emergency basis only. This is not a substitute for, or an effort to provide, complete comprehensive medical care. It is impossible to recognize and treat all injuries or illnesses in a single emergency department visit. It is therefore important that you follow up closely with [facility], your PCP, and/or your specialist(s). Call as soon as possible for an appointment. Thank you for your time and consideration. I look forward to speaking with you again soon. Please don't hesitate to call us if you have any questions. Problem Qualifiers Primary Impression: Fall Encounter type: initial encounter Qualified Codes: W19.XXXA - Unspecified fall, initial encounter Additional Impressions: Anemia Anemia type: unspecified type Qualified Codes: D64.9 - Anemia, unspecified
[2018-02-01 22:46] LABS: HEMATOCRIT 23.8 % (37-47); MEAN CORPUSCULAR HEMOGLOBIN 31.3 pg (25-34); MEAN CORPUSCULAR HGB CONC 33.6 g/dl (32-36); MEAN PLATELET VOLUME 9.4 fL (7.4-10.4); NUCLEATED RED BLOOD CELL ABS 0.02 K/uL (0-0); PLATELET COUNT 177 K/uL (130-400); RED CELL DISTRIBUTION WIDTH SD 47.7 fL (36.4-46.3); WHITE BLOOD COUNT 12.96 K/uL (4.8-10.8)
[2018-02-01 23:00] LABS: INR 1.4 (0.9-1.1); PTT PATIENT 27.2 SECONDS (21.0-31.0)
[2018-02-01 23:09] LABS: BASO % 0.2 %; BASO ABS # 0.03 K/uL (0-0.2); EOS ABS # 0.52 K/uL (0-0.5); IG# 0.09 K/uL (0.00-0.02); LYMPH % 8.5 %; MONO % 10.1 %; MONO ABS # 1.31 K/uL (0.11-0.59); NEUT % 76.5 %; NEUT ABS # 9.91 K/uL (1.4-6.5)
--- NOTE | 2018-02-01 23:10 | DIAGNOSTIC IMAGING REPORT ---
CT HEAD WITHOUT CONTRAST (CT) CLINICAL HISTORY: Weakness HEAD TRAUMA COMPARISON STUDY: February 01, 2018 TECHNIQUE: Axial CT of the brain is performed from the vertex to the skull base. IV contrast was not administered for this examination. A dose lowering technique was utilized adhering to the principles of ALARA. CT DOSE: 638.56 mGycm FINDINGS: No intra or extra-axial mass lesions are visualized. There is no CT evidence of acute cortical infarction. There is no evidence of midline shift. There is no acute hemorrhage. No calvarial fractures are visualized. There are moderate white matter hypodensities likely on a small vessel basis. There is no evidence of pathologic ventricular dilatation. There is no evidence of acute sinusitis. There is a right parietal scalp laceration with a decreasing right scalp hematoma. IMPRESSION: No acute intracranial findings Electronically signed by: Shawn Engel M.D. 02/01/2018 11:08 PM Dictated Date/Time: 02/01/2018 11:05 PM
[2018-02-01 23:18] LABS: ALBUMIN 3.2 gm/dl (3.4-5.0); ALKALINE PHOSPHATASE 85 U/L (45-117); ALT/SGPT 9 U/L (12-78); AST/SGOT 25 U/L (15-37); BLOOD UREA NITROGEN 16 mg/dl (7-18); CALCIUM 8.2 mg/dl (8.5-10.1); CARBON DIOXIDE 25 mmol/L (21-32); CREATININE 0.79 mg/dl (0.60-1.20); GLUCOSE 110 mg/dl (70-99); POTASSIUM 3.8 mmol/L (3.5-5.1); SODIUM 140 mmol/L (136-145); TOTAL PROTEIN 6.6 gm/dl (6.4-8.2)
--- NOTE | 2018-02-02 06:57 | DIAGNOSTIC IMAGING REPORT ---
CHEST ONE VIEW PORTABLE CLINICAL HISTORY: Weakness. Fall. COMPARISON STUDY: Chest radiograph February 01, 2018 1:37 PM. FINDINGS: Mild bibasilar opacities favor atelectasis. There is no consolidation to suggest pneumonia. There is no evidence for pulmonary edema. Mild cardiomegaly is noted. 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 IMPRESSION: 1. No acute cardiopulmonary findings. 2. Bibasilar opacities suggestive of atelectasis. Electronically signed by: Burton Damon M.D. 02/02/2018 6:56 AM Dictated Date/Time: 02/02/2018 6:54 AM
--- NOTE | 2018-02-02 07:32 | DIAGNOSTIC IMAGING REPORT ---
R KNEE 1 OR 2 VIEWS ROUTINE CLINICAL HISTORY: Right knee pain following fall. COMPARISON: None FINDINGS: Alignment of the right knee is anatomic. No acute fracture or joint effusion is identified. There is extensive vascular calcification. There is mild to moderate medial compartment osteoarthritis. Chondrocalcinosis within the menisci is noted. IMPRESSION: 1. No acute fracture or joint effusion of the right knee. 2. 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 Electronically signed by: Burton Damon M.D. 02/02/2018 7:30 AM Dictated Date/Time: 02/02/2018 7:29 AM
[2018-02-02 09:24] VITALS: BP 134/62; PULSE 106; O2SAT 100
[2018-02-04] MEDS ORDERED: VNTHFA/IN INH (11:21)
[2018-02-04] MEDS ORDERED: SNM/25100 PO (11:21)
[2018-02-04] MEDS ORDERED: CLOP1TAB54 PO (11:21)
[2018-02-04] MEDS ORDERED: METO25TA56 PO (11:21)
[2018-02-04] MEDS ORDERED: SKINCRE34 TOP (11:21)
[2018-02-04] MEDS ORDERED: ADVIN25/60 INH (11:21)
[2018-02-04] MEDS ORDERED: CYAN10005 PO (11:21)
[2018-02-04] MEDS ORDERED: MONT1TAB3 PO (11:21)
[2018-02-04] MEDS ORDERED: FOLI1TAB8 PO (11:21)
[2018-02-04] MEDS ORDERED: SENN-65 PO (11:21)
[2018-02-04] MEDS ORDERED: ACET-1256 PO (11:21)
[2018-02-04] MEDS ORDERED: PANT40TA PO (11:21)
[2018-02-04] MEDS ORDERED: VENL75CA88 PO (11:21)
[2018-02-04] MEDS ORDERED: ROPI1TAB PO (11:21)
[2018-02-05] MEDS ORDERED: VENL37.593 PO (15:56)
== END 2018-02-02 09:25 | disposition home or self-care (01) ==
LOC: EDBD 21:34 → C.EDB 21:35
DX: F48.1 Depersonalization-derealization syndrome (principal); D64.9 Anemia, unspecified; W19.XXXA Unspecified fall, initial encounter; F41.9 Anxiety disorder, unspecified; J45.909 Unspecified asthma, uncomplicated; F32.9 Major depressive disorder, single episode, unspecified; E11.9 Type 2 diabetes mellitus without complications; K21.9 Gastro-esophageal reflux disease without esophagitis; E78.5 Hyperlipidemia, unspecified; I10 Essential (primary) hypertension; G20 Parkinson's disease; Z79.01 Long term (current) use of anticoagulants; Z51.81 Encounter for therapeutic drug level monitoring; Z79.899 Other long term (current) drug therapy; Z91.041 Radiographic dye allergy status; Z91.013 Allergy to seafood; Z91.040 Latex allergy status; Z88.8 Allergy status to other drugs, medicaments and biological substances

== ENCOUNTER 2018-02-04 14:23 | Emergency (ER) | payer OTHER ==
[~2018-02-04] VITALS: Ht 154.9 cm; Wt 52.2 kg
[~2018-02-04 14:23] MED LIST changes: +ACET-1256 PO; +ADVIN25/60 INH; -CEFD300C3 PO; +CLOP1TAB54 PO; -CMD2 PO; +CYAN10005 PO; +FOLI1TAB8 PO; -LINE1TAB6 PO; +METO25TA56 PO; +MONT1TAB3 PO; +PANT40TA PO; +ROPI1TAB PO; +SENN-65 PO; +SKINCRE34 TOP; +SNM/25100 PO; +VENL75CA88 PO; +VNTHFA/IN INH
[2018-02-04 14:31] VITALS: TEMP 36.9; Ht 154.9 cm; Wt 52.2 kg
[2018-02-04] MEDS ORDERED: TRMCR515 TOP (14:31)
--- NOTE | 2018-02-04 15:03 | EMERGENCY ROOM VISIT NOTE ---
History Report prepared by Diana: Vinayak Tobin Under the Supervision of: Dr. Glen Scherer M.D. First contact with patient: 14:45 Chief Complaint: FALL Stated Complaint: FALL/AMS History of Present Illness The patient is a 82 year old female who presents to the Emergency Room with complaints of falling a few times in the past couple days wit the most recent fall being at 0300 this morning. The patient notes she fell backwards and hit her head. She does not remember anything including whether she lost consciousness. She recently has had lisa inserted in her right parietal area of her skull and 3 are still in her skull. She is currently on Coumadin and has had a recent blood clot. She does not know what year it is but she knows where she is and what time of year it is. She also mentions she feels like her vision was affected from the falls but denies being in any pain now or feeling nauseous. HPI is limited due to altered mental status. 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 Surgical Problems: (1) Hx of hysterectomy (2) Hx of tonsillectomy Family History Gallbladder disease Heart disease Hypertension Kidney disease Kidney stones Social History Smoking Status: Never Smoker Alcohol Use: none Drug Use: none Marital Status: Housing Status: assisted living Occupation Status: retired Current/Historical Medications Scheduled Clopidogrel Bisulfate (Plavix), 75 MG PO DAILY Cyanocobalamin (Vitamin B-12), 1,000 MCG PO DAILY Eucerin (Eucerin), 1 APPLN TOP AMHS Ferrous Sulfate (Ferrous Sulfate), 325 MG PO BIDM Fluticasone Prop/Salmeterol (Advair Diskus 250/50 60 Dose), 1 PUFF INH Q12 Folic Acid (Folvite), 1 MG PO DAILY Levodopa/Carbidopa (Sinemet 25MG/100MG), 2 TABS PO QID Melatonin (Melatonin), 3 MG PO HS Metoprolol Tartrate (Lopressor) (Lopressor), 25 MG PO BID Montelukast Sodium (Singulair), 10 MG PO HS Pantoprazole (Protonix), 40 MG PO DAILY Ropinirole Hydrochloride (Requip), 1 MG PO HS Senna/Docusate Sod (Senokot S), 1 TAB PO DAILY Sodium Phosphate/Biphosphate (Fleet Enema), 1 EA AR UD Venlafaxine Hcl (Effexor Xr), 75 MG PO DAILY [Med Pass], 4 OZ PO AMHS Scheduled PRN Acetaminophen (Tylenol), 500 MG PO Q4H PRN for Pain or Fever Albuterol Hfa (Ventolin Hfa), 2 PUFFS INH Q6H PRN for SOB/Wheezing Bisacodyl (Dulcolax), 1 SUPP AR UD PRN for Constipation Magnesium Hydroxide (Milk Of Magnesia), 30 ML PO UD PRN for Constipation Triamcinolone Acet (Triamcinolone Acetonide), 1 APPLN TOP BID PRN for Rash Allergies Coded Allergies: Diphenhydramine (Verified Allergy, Severe, SWELLING IN THROAT, 02/01/18) Iodine (Verified Allergy, Severe, THROAT SWELLING, 02/01/18) Shellfish (Verified Allergy, Severe, ANAPHYLAXIS AND FULL BODY HIVES, 02/01) Ciprofloxacin (Verified Allergy, Intermediate, HIVES FULL BODY, 02/01/18) Latex1 -Allergic Contact Dermititis (Verified Allergy, Intermediate, DERMATITIS, 02/01/18) Quinine (Verified Allergy, Intermediate, HIVES, 02/01/18) Triprolidine (Verified Allergy, Intermediate, HIVES, ASTHMA EXACERBATION, 02/01/18) Physical Exam Vital Signs Date Time Temp Pulse Resp B/P (MAP) Pulse Ox O2 Delivery O2 Flow Rate FiO2 02/04/18 17:30 92 16 167/83 96 Room Air 02/04/18 16:18 91 20 145/106 96 Room Air 02/04/18 15:33 87 02/04/18 15:15 97 Room Air 02/04/18 14:31 36.9 83 20 127/75 94 Room Air Physical Exam GENERAL: Awake, alert to person and place, well-appearing, in no distress HENT: Normocephalic. Right parietal scalp has 3cm wound with [address] showing no signs of infection Oropharynx unremarkable. EYES: Normal conjunctiva. Sclera non-icteric. NECK: Supple. No nuchal rigidity. Trachea midline RESPIRATORY: Clear to auscultation. No wheezes. Normal respiratory effort. CARDIAC: Normal rate. Normal rhythm. Extremities warm and well perfused. GI: Soft, non-distended. No tenderness to palpation. No rebound or guarding. No masses. RECTAL: Deferred. MUSCULOSKELETAL: Atraumatic. Chest examination reveals no tenderness. There is no CVA tenderness to palpation. LOWER EXTREMITIES: Calves are equal size bilaterally and non-tender. No edema NEURO: Normal sensorium. No sensory or motor deficits noted. No facial droop. Alert to person and place, not year SKIN: Warm and dry. No rash or jaundice noted. Medical Decision & Procedures ER Provider Diagnostic Interpretation: Radiology results as stated below per my review and radiologist interpretation: CHEST ONE VIEW PORTABLE HISTORY: 82 years-old Female EVALUATE WEAKNESS acute weakness COMPARISON: Chest radiograph 01/31/2018 TECHNIQUE: Portable AP view of the chest FINDINGS: Cardiomediastinal and hilar silhouettes are within normal limits. Calcification of the aorta. No pneumothorax, pleural effusion or overt pulmonary edema. Mild chronic bilateral interstitial coarsening with mild subsegmental left basilar atelectasis. Degenerative changes of the shoulders and spine. Convex right curvature of the lumbar spine. IMPRESSION: No acute process. The above report was generated using voice recognition software. It may contain grammatical, syntax or spelling errors. Electronically signed by: Brett Dean M.D. 02/04/2018 3:12 PM Dictated Date/Time: 02/04/2018 3:11 PM HEAD WITHOUT CONTRAST (CT) CLINICAL HISTORY: 82 years-old Female with EVALUATE WEAKNESS. Acute weakness. TECHNIQUE: Multiple axial CT images of the head were obtained without contrast. A dose lowering technique was utilized adhering to the principles of ALARA. CT DOSE: 907.90 mGy.cm COMPARISON: CT head 02/01/2018, CT cervical spine 02/04/2018. FINDINGS: No acute intracranial hemorrhage, midline shift, intracranial mass, hydrocephalus, territorial ischemia or abnormal extra-axial collection. Atrophy with ex vacuo ventriculomegaly. Moderate low-attenuation about the white matter compatible with chronic microvascular ischemic changes. Senescent calcifications about the basal ganglia. Cerebral vascular calcifications are noted. The calvarium is intact. The paranasal sinuses, mastoid air cells, and middle ear cavities are clear. Skin lisa are noted about the right temporal scalp. IMPRESSION: No acute intracranial abnormality. The above report was generated using voice recognition software. It may contain grammatical, syntax or spelling errors. Electronically signed by: Brett Dean M.D. 02/04/2018 4:20 PM Dictated Date/Time: 02/04/2018 4:16 PM CERVICAL SPINE W/O CLINICAL HISTORY: 82 years-old Female with fall. Acute neck injury status post fall COMPARISON: CT cervical spine 02/01/2018. TECHNIQUE: Multiple axial CT images of the cervical spine were obtained without contrast. A dose lowering technique was utilized adhering to the principles of ALARA. FINDINGS: Demineralized appearance of the bones. Unchanged chronic type II fracture of the odontoid process with 3 mm anterolisthesis of the dens relative to the C2 vertebral body. Unchanged 5 mm anterolisthesis of the posterior arch C1 relative to C2 with chronic C1 fracture deformity. Unchanged approximately 7 mm lateral displacement of the lateral mass C1 relative to C2. No new acute fracture or subluxation identified. Severe multilevel intervertebral disc space narrowing. Unchanged 3 mm anterolisthesis C7 on T1. Advanced multilevel facet arthropathy. Facet fusion is again noted bilaterally at C2-C3 through C4-C5. Unchanged 3 mm anterolisthesis C3 on C4. Mild levoscoliosis of the cervical spine. Evaluation of the central canal and neuroforamina is better assessed by MRI. Prominent posterior disc ossify complex relation seen at several levels with prominent spondylitic spurring. The lung apices appear clear. Calcification about the carotid bulbs. Soft tissues are unremarkable. IMPRESSION: 1. No acute fracture or subluxation. 2. Chronic fracture deformities with unchanged alignment at C1 and C2. 3. Advanced multilevel degenerative changes as above. The above report was generated using voice recognition software. It may contain grammatical, syntax or spelling errors. Electronically signed by: Brett Dean M.D. 02/04/2018 4:41 PM Dictated Date/Time: 02/04/2018 4:34 PM Laboratory Results 02/04/18 15:45 Red Blood Count 2.49, Mean Corpuscular Volume 94.0, Mean Corpuscular Hemoglobin 31.3, Mean Corpuscular Hemoglobin Concent 33.3, Mean Platelet Volume 9.4 02/04/18 15:45 Test 02/04/18 15:45 02/04/18 16:47 White Blood Count 14.73 K/uL (4.8-10.8) Red Blood Count 2.49 M/uL (4.2-5.4) Hemoglobin 7.8 g/dL (12.0-16.0) Hematocrit 23.4 % (37-47) Mean Corpuscular Volume 94.0 fL (80-100) Mean Corpuscular Hemoglobin 31.3 pg (25-34) Mean Corpuscular Hemoglobin Concent 33.3 g/dl (32-36) Platelet Count 273 K/uL (130-400) Mean Platelet Volume 9.4 fL (7.4-10.4) RDW Standard Deviation 49.3 fL (36.4-46.3) RDW Coefficient of Variation 14.5 % (11.5-14.5) Nucleated RBC Absolute Count (auto) 0.12 K/uL (0-0) Neutrophils % (Manual) 69.6 % Lymphocytes % (Manual) 13.0 % Monocytes % (Manual) 7.8 % Eosinophils % (Manual) 8.7 % Metamyelocytes % 0.9 % Nucleated Red Blood Cells % 0.8 % Neutrophils # (Manual) 10.25 K/uL (1.4-6.5) Total Absolute Neutrophils 10.25 K/uL (1.4-6.5) Lymphocytes # (Manual) 1.91 K/uL (1.2-3.4) Total Absolute Lymphocytes 1.91 K/uL (1.2-3.4) Monocytes # (Manual) 1.15 K/uL (0.11-0.59) Eosinophils # (Manual) 1.28 K/uL (0-0.5) Metamyelocytes # 0.13 K/uL (0-0) Red Blood Cell Morphology Unremarkable Prothrombin Time 11.3 SECONDS (9.0-12.0) Prothromb Time International Ratio 1.1 (0.9-1.1) Activated Partial Thromboplast Time 28.2 SECONDS (21.0-31.0) Partial Thromboplastin Ratio 1.1 Anion Gap 10.0 mmol/L (3-11) Est Creatinine Clear Calc Drug Dose 38.0 ml/min Estimated GFR () 72.9 Estimated GFR (Non- 62.9 BUN/Creatinine Ratio 15.5 (10-20) Calcium Level 8.7 mg/dl (8.5-10.1) Total Bilirubin 0.5 mg/dl (0.2-1) Direct Bilirubin 0.1 mg/dl (0-0.2) Aspartate Amino Transf (AST/SGOT) 22 U/L (15-37) Alanine Aminotransferase (ALT/SGPT) 8 U/L (12-78) Alkaline Phosphatase 100 U/L (45-117) Troponin I < 0.015 ng/ml (0-0.045) Total Protein 6.9 gm/dl (6.4-8.2) Albumin 3.1 gm/dl (3.4-5.0) Lipase 128 U/L (73-393) Thyroid Stimulating Hormone (TSH) 2.050 uIu/ml (0.300-4.500) Urine Color DK YELLOW Urine Appearance CLEAR (CLEAR) Urine pH 7.5 (4.5-7.5) Urine Specific [place] 1.017 (1.000-1.030) Urine Protein NEG (NEG) Urine Glucose (UA) NEG (NEG) Urine Ketones TRACE (NEG) Urine Occult Blood NEG (NEG) Urine Nitrite NEG (NEG) Urine Bilirubin NEG (NEG) Urine Urobilinogen NEG (NEG) Urine Leukocyte Esterase TRACE (NEG) Urine WBC (Auto) 1-5 /hpf (0-5) Urine RBC (Auto) 0-4 /hpf (0-4) Urine Hyaline Casts (Auto) 1-5 /lpf (0-5) Urine Epithelial Cells (Auto) 10-20 /lpf (0-5) Urine Bacteria (Auto) NEG (NEG) Laboratory results reviewed by me ECG Per My Interpretation Indication: altered mental status Rate (beats per minute): 91 Rhythm: normal sinus Findings: T-wave inversion (Diffused), no ectopy, other (No ST elevation) Comparison ECG Date: January 12, 2018 Change: no significant change ED Course 1450: The patient was evaluated in room A2. A complete history and physical exam was performed. 1800: I reevaluated the patient. Discussed results and discharge instructions: She verbalized understanding and agreement. The patient is ready for discharge. Medical Decision Differential diagnosis: Etiologies such as metabolic, infection, hypo/hyperglycemia, electrolyte abnormalities, cardiac sources, intracerebral event, toxicologic, neurologic, fracture, dislocation, intra-abdominal, pneumothorax, intrathoracic , intracranial, neurologic, as well as other traumatic pathologies were entertained. Patient presents in transfer from [facility] where she suffered a fall around 3 AM this morning. Patient is awake and alert to person and knows her birthdate and that she is in [place]. Thinks it is 2009 or 2011 but notices late January. Limited additional history. Did have a fall several days ago and appears to have healing wound on the right parietal of the head with lisa still in place. No evidence of infection. Labs are completed as well as urine and CT the head and cervical spine were completed to exclude traumatic injury. Patient is on Coumadin. Chest x-ray unremarkable. CT head without acute intracranial injury. No evidence of cervical spine injury. No electrolyte abnormality. Slight leukocytosis of unclear significance. No significant shoulder tenderness on exam of the previously infected right shoulder. Negative urinalysis. INR is 1.1. Will defer changes here to facility physician. May be related to recent medication changes ( Recently finished her Zyvox antibiotics now started back on her Sinemet and Effexor.) why she is having more falls. Did discuss with the patient's daughter via phone who is in agreement with plan. Head Trauma GCS Score: 15 Medication Reconcilliation Current Medication List: was personally reviewed by me Blood Pressure Screening Patient's blood pressure: Elevated blood pressure Blood pressure disposition: Referred to PCP Impression Primary Impression: Fall Additional Impression: Weakness Scribe Attestation The scribe's documentation has been prepared under my direction and personally reviewed by me in its entirety. I confirm that the note above accurately reflects all work, treatment, procedures, and medical decision making performed by me. Departure Information Dispostion Home / Self-Care Referrals Mariela Alfonso D.O. (PCP) Forms HOME CARE DOCUMENTATION FORM, IMPORTANT VISIT INFORMATION Patient Instructions My [facility] Additional Instructions Please be careful to avoid falls in the future. Your INR today is low at 1.1, I would discuss with your doctor dosing of your Coumadin for this if you are continuing on it. There is no acute evidence of a reason for any change in mental status today. No evidence of head or neck injury. Please follow-up with your regular doctor within the next 3 days and if any other or more emergent concerns he can always return here for reevaluation. Problem Qualifiers Primary Impression: Fall Encounter type: initial encounter Qualified Codes: W19.XXXA - Unspecified fall, initial encounter
--- NOTE | 2018-02-04 15:14 | DIAGNOSTIC IMAGING REPORT ---
CHEST ONE VIEW PORTABLE HISTORY: 82 years-old Female EVALUATE WEAKNESS acute weakness COMPARISON: Chest radiograph 01/31/2018 TECHNIQUE: Portable AP view of the chest FINDINGS: Cardiomediastinal and hilar silhouettes are within normal limits. Calcification of the aorta. No pneumothorax, pleural effusion or overt pulmonary edema. Mild chronic bilateral interstitial coarsening with mild subsegmental left basilar atelectasis. Degenerative changes of the shoulders and spine. Convex right curvature of the lumbar spine. IMPRESSION: No acute process. The above report was generated using voice recognition software. It may contain grammatical, syntax or spelling errors. Electronically signed by: Brett Dean M.D. 02/04/2018 3:12 PM Dictated Date/Time: 02/04/2018 3:11 PM
[2018-02-04 15:15] VITALS: O2SAT 97
[2018-02-04 16:00] LABS: HEMATOCRIT 23.4 % (37-47); HEMOGLOBIN 7.8 g/dL (12.0-16.0); MEAN CORPUSCULAR HEMOGLOBIN 31.3 pg (25-34); MEAN CORPUSCULAR HGB CONC 33.3 g/dl (32-36); MEAN PLATELET VOLUME 9.4 fL (7.4-10.4); NUCLEATED RED BLOOD CELL ABS 0.12 K/uL (0-0); PLATELET COUNT 273 K/uL (130-400); RED CELL DISTRIBUTION WIDTH CV 14.5 % (11.5-14.5); RED CELL DISTRIBUTION WIDTH SD 49.3 fL (36.4-46.3); WHITE BLOOD COUNT 14.73 K/uL (4.8-10.8)
[2018-02-04] MEDS ORDERED: BISA10SU3 PR (16:13)
[2018-02-04] MEDS ORDERED: MOML PO (16:13)
[2018-02-04] MEDS ORDERED: SODIENE PR (16:18)
[2018-02-04] MEDS ORDERED: MED PASS PO (16:18)
--- NOTE | 2018-02-04 16:22 | DIAGNOSTIC IMAGING REPORT ---
HEAD WITHOUT CONTRAST (CT) CLINICAL HISTORY: 82 years-old Female with EVALUATE WEAKNESS. Acute weakness. TECHNIQUE: Multiple axial CT images of the head were obtained without contrast. A dose lowering technique was utilized adhering to the principles of ALARA. CT DOSE: 907.90 mGy.cm COMPARISON: CT head 02/01/2018, CT cervical spine 02/04/2018. FINDINGS: No acute intracranial hemorrhage, midline shift, intracranial mass, hydrocephalus, territorial ischemia or abnormal extra-axial collection. Atrophy with ex vacuo ventriculomegaly. Moderate low-attenuation about the white matter compatible with chronic microvascular ischemic changes. Senescent calcifications about the basal ganglia. Cerebral vascular calcifications are noted. The calvarium is intact. The paranasal sinuses, mastoid air cells, and middle ear cavities are clear. Skin lisa are noted about the right temporal scalp. IMPRESSION: No acute intracranial abnormality. The above report was generated using voice recognition software. It may contain grammatical, syntax or spelling errors. Electronically signed by: Brett Dean M.D. 02/04/2018 4:20 PM Dictated Date/Time: 02/04/2018 4:16 PM
[2018-02-04 16:26] LABS: ALBUMIN 3.1 gm/dl (3.4-5.0); ALKALINE PHOSPHATASE 100 U/L (45-117); ALT/SGPT 8 U/L (12-78); AST/SGOT 22 U/L (15-37); BLOOD UREA NITROGEN 13 mg/dl (7-18); CALCIUM 8.7 mg/dl (8.5-10.1); CARBON DIOXIDE 24 mmol/L (21-32); CREATININE 0.86 mg/dl (0.60-1.20); GLUCOSE 104 mg/dl (70-99); LIPASE 128 U/L (73-393); POTASSIUM 4.1 mmol/L (3.5-5.1); SODIUM 140 mmol/L (136-145); TOTAL PROTEIN 6.9 gm/dl (6.4-8.2)
[2018-02-04] MEDS ORDERED: MELA1TAB49 PO (16:37)
[2018-02-04] MEDS ORDERED: FERR1TAB62 PO (16:37)
--- NOTE | 2018-02-04 16:42 | DIAGNOSTIC IMAGING REPORT ---
CERVICAL SPINE W/O CLINICAL HISTORY: 82 years-old Female with fall. Acute neck injury status post fall COMPARISON: CT cervical spine 02/01/2018. TECHNIQUE: Multiple axial CT images of the cervical spine were obtained without contrast. A dose lowering technique was utilized adhering to the principles of ALARA. FINDINGS: Demineralized appearance of the bones. Unchanged chronic type II fracture of the odontoid process with 3 mm anterolisthesis of the dens relative to the C2 vertebral body. Unchanged 5 mm anterolisthesis of the posterior arch C1 relative to C2 with chronic C1 fracture deformity. Unchanged approximately 7 mm lateral displacement of the lateral mass C1 relative to C2. No new acute fracture or subluxation identified. Severe multilevel intervertebral disc space narrowing. Unchanged 3 mm anterolisthesis C7 on T1. Advanced multilevel facet arthropathy. Facet fusion is again noted bilaterally at C2-C3 through C4-C5. Unchanged 3 mm anterolisthesis C3 on C4. Mild levoscoliosis of the cervical spine. Evaluation of the central canal and neuroforamina is better assessed by MRI. Prominent posterior disc ossify complex relation seen at several levels with prominent spondylitic spurring. The lung apices appear clear. Calcification about the carotid bulbs. Soft tissues are unremarkable. IMPRESSION: 1. No acute fracture or subluxation. 2. Chronic fracture deformities with unchanged alignment at C1 and C2. 3. Advanced multilevel degenerative changes as above. The above report was generated using voice recognition software. It may contain grammatical, syntax or spelling errors. Electronically signed by: Brett Dean M.D. 02/04/2018 4:41 PM Dictated Date/Time: 02/04/2018 4:34 PM
[2018-02-04 16:44] LABS: INR 1.1 (0.9-1.1); PTT PATIENT 28.2 SECONDS (21.0-31.0)
[2018-02-04 18:47] VITALS: BP 146/78; PULSE 90; O2SAT 97
[2018-02-05] MEDS ORDERED: VENL37.593 PO (15:56)
== END 2018-02-04 18:48 | disposition home or self-care (01) ==
LOC: EDBD 14:23 → C.EDA 14:24
DX: S09.90XA Unspecified injury of head, initial encounter (principal); W19.XXXA Unspecified fall, initial encounter; W22.8XXA Striking against or struck by other objects, initial encounter; Y92.129 Unspecified place in nursing home as the place of occurrence of the external cause; R53.1 Weakness; J45.909 Unspecified asthma, uncomplicated; E11.9 Type 2 diabetes mellitus without complications; I10 Essential (primary) hypertension; F41.9 Anxiety disorder, unspecified; F32.9 Major depressive disorder, single episode, unspecified; K21.9 Gastro-esophageal reflux disease without esophagitis; G20 Parkinson's disease; Z88.1 Allergy status to other antibiotic agents; Z88.6 Allergy status to analgesic agent; Z88.8 Allergy status to other drugs, medicaments and biological substances; Z91.81 History of falling; Z91.040 Latex allergy status; Z91.041 Radiographic dye allergy status; Z91.013 Allergy to seafood; Z82.49 Family history of ischemic heart disease and other diseases of the circulatory system; Z79.01 Long term (current) use of anticoagulants; Z79.02 Long term (current) use of antithrombotics/antiplatelets; Z79.899 Other long term (current) drug therapy